=== PATIENT | female | born 1975 | race Caucasian/White ===

== ENCOUNTER 2020-09-05 06:12 | Day surgery (SDC) | payer MEDICARE, MEDICAID, SELFPAY ==
[2020-09-05] VITALS (7 sets, daily range): BP systolic 112–150; BP diastolic 55–73; PULSE 60–104; RESP 13–23; TEMP 36.3–37.2; O2SAT 94–98; BMI 29.7
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
--- NOTE | 2020-09-05 07:13 | MHC.SHP ---
Pre-Procedural Eval Section A The patient is an INPATIENT: No Changes since office visit: Yes Patient answered all questions The History & Physical has been completed within 30 days and I have reviewed it.: Yes Section B Chief Complaint: severe depression Allergies: Allergies Allergy/AdvReac Type Severity Reaction Status Date / Time Sulfa (Sulfonamide Allergy Mild UNKNOWN Unverified 08/09/20 17:12 Antibiotics) Sulfa antibotics Allergy Unknown Uncoded 09/02/19 00:00 Plan Patient has been examined and remains a candidate for the planned procedure
--- NOTE | 2020-09-05 07:26 | HO.ECTPROC ---
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
== END 2020-09-05 08:55 | disposition home or self-care (01) ==
PROVIDERS: PCP Internal Medicine; Visit Provider Psychiatry & Neurology Psychiatry
PROC: (CPT 90870; principal; 2020-09-05 08:00)
DX: F25.0 Schizoaffective disorder, bipolar type (principal); Z88.2 Allergy status to sulfonamides; Z79.899 Other long term (current) drug therapy; Z87.891 Personal history of nicotine dependence
CPT/HCPCS: 90870; J2250

== ENCOUNTER 2020-09-19 05:58 | Day surgery (SDC) | payer MEDICARE, MEDICAID, SELFPAY ==
[2020-09-19 06:26] VITALS: BP 166/83; PULSE 99; RESP 18; TEMP 36.3; O2SAT 98; BMI 27.8
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
--- NOTE | 2020-09-19 07:15 | HO.ECTPROC ---
ECT Procedure Note Diagnosis/Treatment Diagnosis: Schizoaffective Disorder Treatment: Maintenance Interval Clinical Notes: patient complains of involuntary twitching movements mood anxious pre ECT with continues to feel ECT quite helpful with mood and paranoia ECT Settings Device: THYMATRON DGx Electrode Placement: Bifrontal Program/Pulse Width: 0.25 Energy Percent: 75 Seizure Duration By Motor Observation (in seconds): 47 Medications Administration General Anesthetic: Etomidate (16) Muscle Relaxant: Succinylcholine (100) Ancillary Medications Analgesics: Torodol - Pre ECT Anti-emetics: Zofran - Pre ECT Miscillaneous Medications: Midazolam (2 mg ) Airway Management Airway Management: Bag Mask Ventilation Treatment Recommendations No Changes Recommended: No change Pt Tolerated Procedure w/o Issue: Yes
[2020-09-19 07:22] VITALS: BP 136/61; PULSE 68; RESP 16; TEMP 36.6; O2SAT 98
[2020-09-19 07:27] VITALS: BP 117/73; PULSE 78; RESP 16; O2SAT 97
[2020-09-19 07:32] VITALS: BP 122/70; PULSE 77; RESP 16; O2SAT 97
[2020-09-19 07:37] VITALS: BP 122/76; PULSE 81; RESP 16; O2SAT 95
[2020-09-19 07:48] VITALS: BP 128/72; PULSE 82; RESP 16; TEMP 36.6; O2SAT 96
== END 2020-09-19 08:30 | disposition home or self-care (01) ==
PROVIDERS: PCP Internal Medicine; Visit Provider Psychiatry & Neurology Psychiatry
PROC: (CPT 90870; principal; 2020-09-19 15:30)
DX: F25.9 Schizoaffective disorder, unspecified (principal); E78.00 Pure hypercholesterolemia, unspecified; E03.2 Hypothyroidism due to medicaments and other exogenous substances; Z79.899 Other long term (current) drug therapy; Z87.891 Personal history of nicotine dependence; Z88.2 Allergy status to sulfonamides
CPT/HCPCS: 90870; J2250

== ENCOUNTER 2020-11-05 11:01 | Outpatient (REF) | payer MEDICARE, MEDICAID, SELFPAY ==
--- NOTE | 2020-11-05 | MM_ITS ---
EXAMINATION: MM SCREENING DIGITAL BREAST TOMOSYNTHESIS, BILATERAL CLINICAL INFORMATION: Screening. Asymptomatic. The lifetime risk of breast cancer based on the Tyrer-Cuzick Model is 9%. COMPARISON: Mammography: 11/02/2019, 10/26/2018 (baseline), targeted left breast ultrasound 11/01/2018. TECHNIQUE: Digital breast tomosynthesis is performed in both the craniocaudal and mediolateral oblique views along with computer-aided detection (CAD). Synthesized 2D images are generated from the tomosynthesis. FINDINGS: There are scattered areas of fibroglandular density (ACR BI-RADS breast composition Category b). There are no significant masses, abnormal calcifications, or other abnormalities. The tiny cyst 6:00 left breast is further decreased in size. The axilla and skin contours are unremarkable. MM/MM tomosynthesis screening BI IMPRESSION: No mammographic evidence of malignancy. ASSESSMENT: BI-RADS 2: Benign RECOMMENDATION: Routine annual mammography screening. This patient's information was entered into a reminder system with a target due date for their next mammogram.
== END 2020-11-05 11:02 | disposition home or self-care (01) ==
LOC: HO.MAMMO 11:01
PROVIDERS: Visit Provider Obstetrics & Gynecology
DX: Z12.31 Encounter for screening mammogram for malignant neoplasm of breast (principal)
CPT/HCPCS: 77063; 77067

== ENCOUNTER 2020-11-07 06:07 | Day surgery (SDC) | payer MEDICARE, MEDICAID, SELFPAY ==
[2020-11-07] VITALS (7 sets, daily range): BP systolic 106–134; BP diastolic 59–80; PULSE 69–91; RESP 11–21; TEMP 36.4–37.1; O2SAT 96–98; BMI 29.7
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
--- NOTE | 2020-11-07 07:12 | HO.ECTPROC ---
ECT Procedure Note Diagnosis/Treatment Diagnosis: Schizoaffective Disorder Treatment: Maintenance Interval Clinical Notes: patient has been increasingly depressed asks for [employer] back to 6 mg ECT Settings Device: THYMATRON DGx Electrode Placement: Bifrontal Program/Pulse Width: 0.25 Energy Percent: 75 Seizure Duration By EEG (in seconds): 59 Medications Administration General Anesthetic: Etomidate (16) Muscle Relaxant: Succinylcholine (100) Ancillary Medications Analgesics: Torodol - Pre ECT Anti-emetics: Zofran - Pre ECT Miscillaneous Medications: Midazolam (2 mg ) Airway Management Airway Management: Bag Mask Ventilation Treatment Recommendations No Changes Recommended: No change Notes: pt has been inc depressed f/u tx 1 week Pt Tolerated Procedure w/o Issue: Yes
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
--- NOTE | 2020-11-07 08:16 | HO.POSTANES ---
Post Anesthesia Evaluation Post Anesthesia Evaluation Vital Signs: Vital Signs Temp Pulse Resp BP Pulse Ox 11/07/20 08:02 98.8 F 82 21 H 134/72 97 11/07/20 07:51 79 19 113/60 98 11/07/20 07:46 79 19 113/65 98 11/07/20 07:41 76 11 L 112/66 97 11/07/20 07:36 82 16 120/73 97 11/07/20 07:33 98.1 F 85 20 106/59 L 96 11/07/20 06:05 97.6 F 91 18 124/80 97 Anesthesia: General Mental Status: Awake Pain Control: Satisfactory Nausea/Vomiting: None Hydration: Adequate Anesthesia-Related Issues: No Anes. Related Issues
== END 2020-11-07 08:26 | disposition home or self-care (01) ==
PROVIDERS: PCP Internal Medicine; Visit Provider Psychiatry & Neurology Psychiatry
PROC: (CPT 90870; principal; 2020-10-31 07:30)
DX: F25.0 Schizoaffective disorder, bipolar type (principal); F32.9 Major depressive disorder, single episode, unspecified; Z79.899 Other long term (current) drug therapy; Z88.2 Allergy status to sulfonamides
CPT/HCPCS: 90870; J2250

== ENCOUNTER 2020-11-30 06:08 | Day surgery (SDC) | payer MEDICARE, MEDICAID, SELFPAY ==
[2020-11-30] VITALS (7 sets, daily range): BP systolic 111–151; BP diastolic 58–79; PULSE 76–109; RESP 16–18; TEMP 36.5–37.2; O2SAT 95–97; BMI 12.4
--- NOTE | 2020-11-30 07:08 | MHC.SHP ---
Pre-Procedural Eval Section A The patient is an INPATIENT: No Changes since office visit: Yes Changes in Medication and Yes Patient answered all questions; No Cold of Flu in the past 2 weeks and No New Medical Problems The History & Physical has been completed within 30 days and I have reviewed it.: Yes Section B Chief Complaint: severe depression Allergies: Allergies Allergy/AdvReac Type Severity Reaction Status Date / Time Sulfa (Sulfonamide Allergy Mild UNKNOWN Unverified 08/09/20 17:12 Antibiotics) Sulfa antibotics Allergy Unknown Uncoded 09/02/19 00:00 Plan I have reviewed the history and physical and performed a pertinent physical examination on my patient. No changes have occurred unless specified.
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
--- NOTE | 2020-11-30 07:52 | HO.ECTPROC ---
ECT Procedure Note Diagnosis/Treatment Diagnosis: Bipolar disorder Previous ECT Date: 11/07/20 Current Treatment Number: Other Treatment: Maintenance Interval Clinical Notes: pt has been mod depressed no si vraylar lowered back to 4.5 secondary to myoclonic jerks ECT Settings Device: THYMATRON DGx Electrode Placement: Bifrontal Program/Pulse Width: 0.25 Energy Percent: 80 Seizure Duration By EEG (in seconds): 63 Medications Administration General Anesthetic: Etomidate (16) Muscle Relaxant: Succinylcholine (100) Ancillary Medications Analgesics: Torodol - Pre ECT Anti-emetics: Zofran - Pre ECT Miscillaneous Medications: Midazolam (2 mg) Airway Management Airway Management: Bag Mask Ventilation Treatment Recommendations No Changes Recommended: No change Notes: f/u tx 3 weeks Pt Tolerated Procedure w/o Issue: Yes
--- NOTE | 2020-11-30 08:27 | HO.POSTANES ---
Post Anesthesia Evaluation Post Anesthesia Evaluation Vital Signs: Vital Signs Temp Pulse Resp BP Pulse Ox 11/30/20 08:10 98.9 F 82 18 112/61 96 11/30/20 07:55 85 17 121/72 96 11/30/20 07:40 98.9 F 85 16 115/70 95 11/30/20 07:35 82 16 129/71 97 11/30/20 07:30 84 16 111/63 96 11/30/20 07:25 98.4 F 76 16 118/58 L 95 11/30/20 06:17 97.7 F 109 H 17 151/79 H 97 Anesthesia: General (mask) Mental Status: Awake Pain Control: Satisfactory Nausea/Vomiting: None Hydration: Adequate Anesthesia-Related Issues: No Anes. Related Issues
[2020-11-30 08:47] LABS: Lithium 0.39 mmol/L (0.60-1.20)
[2020-11-30 08:50] LABS: Alanine Aminotransferase 15 U/L (0-31); Albumin Level 4.3 g/dL (3.5-5.0); Alkaline Phosphatase 82 U/L (39-117); Anion Gap 13 (12-20); Aspartate Amino Transferase 17 U/L (5-31); Bilirubin Total 0.4 mg/dL (0.0-1.0); Blood Urea Nitrogen 17 mg/dL (9-16); Calcium 8.3 mg/dL (8.4-10.2); Carbon Dioxide 23 mmol/L (22-29); Chloride 106 mmol/L (96-108); Creatinine Clr Calc Pharmacy 44.1; Estimated Glomerular Filt Rate > 60; Glucose Fasting 137 mg/dL (60-99); Sodium 138 mmol/L (135-145); Total Protein 6.7 g/dL (6.5-8.0)
[2020-11-30 09:10] LABS: TSH reflex Free T4 2.26 mIU/mL (0.32-4.0)
[2020-11-30 09:31] LABS: Folate > 20.0 ng/mL (> or = 4.0); Vitamin B12 677 pg/mL (200-900)
== END 2020-11-30 23:59 | disposition home or self-care (01) ==
PROVIDERS: PCP Internal Medicine; Visit Provider Psychiatry & Neurology Psychiatry
PROC: (CPT 90870; principal; 2020-11-30 07:30)
DX: F33.2 Major depressive disorder, recurrent severe without psychotic features (principal); F25.0 Schizoaffective disorder, bipolar type; Z88.2 Allergy status to sulfonamides; Z79.899 Other long term (current) drug therapy
CPT/HCPCS: 36415; 80053; 80178; 82607; 82746; 84443; 90870; J0330; J1885; J2250; J2405

== ENCOUNTER 2021-01-16 06:05 | Day surgery (SDC) | payer MEDICARE, MEDICAID, SELFPAY ==
[2021-01-16 06:17] VITALS: BMI 30.2
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
[2021-01-16] MEDS: Lactated Ringers 500 ML 50 ML IV (07:19)
--- NOTE | 2021-01-16 07:22 | HO.ECTPROC ---
ECT Procedure Note Diagnosis/Treatment Date of Service: 01/16/21 Diagnosis: Schizoaffective Disorder Previous ECT Date: 11/30/20 Current Treatment Number: Other Treatment: Maintenance Interval Clinical Notes: pt depressed feels ect helpful but has anxiety skips tx ECT Settings Device: THYMATRON DGx Electrode Placement: Bifrontal Program/Pulse Width: 0.25 Energy Percent: 100 Seizure Duration By EEG (in seconds): 61 Medications Administration General Anesthetic: Etomidate (16) Muscle Relaxant: Succinylcholine (100) Ancillary Medications Analgesics: Torodol - Pre ECT Anti-emetics: Zofran - Pre ECT Miscillaneous Medications: Midazolam (2 mg) Airway Management Airway Management: Bag Mask Ventilation Treatment Recommendations No Changes Recommended: No change Notes: f/u tx 2 weeks try and stabilize mood Pt Tolerated Procedure w/o Issue: Yes
[2021-01-16 07:50] VITALS: BP 156/68; PULSE 78; RESP 17; TEMP 37; O2SAT 100
[2021-01-16 07:55] VITALS: BP 107/64; PULSE 74; RESP 17; O2SAT 100
[2021-01-16 08:00] VITALS: BP 107/64; PULSE 78; RESP 17; O2SAT 100
[2021-01-16 08:05] VITALS: BP 123/55; PULSE 82; RESP 17; O2SAT 97
[2021-01-16 08:21] VITALS: BP 108/63; PULSE 77; RESP 17; TEMP 36.5; O2SAT 96
[2021-01-16 08:36] VITALS: BP 105/54; PULSE 97; RESP 17; O2SAT 97
--- NOTE | 2021-01-16 08:56 | PC.NURSE ---
Labwork drawn prior to discharge as ordered
[2021-01-16 10:01] LABS: Estimated Average Glucose 103 mg/dL; Hemoglobin A1c % 5.2 %
[2021-01-21 15:07] LABS: Vitamin D 25-OH, D2 <4 ng/mL; Vitamin D 25-OH, D3 41 ng/mL; Vitamin D 25-OH, Total 41 ng/mL (30-100)
== END 2021-01-16 08:57 | disposition home or self-care (01) ==
PROVIDERS: PCP Internal Medicine; Visit Provider Psychiatry & Neurology Psychiatry
PROC: (CPT 90870; principal; 2021-01-16 07:30)
DX: F33.3 Major depressive disorder, recurrent, severe with psychotic symptoms (principal); Z79.899 Other long term (current) drug therapy; Z88.2 Allergy status to sulfonamides
CPT/HCPCS: 36415; 82306; 83036; 90870; J0330; J1885; J2250; J2405

== ENCOUNTER 2021-01-23 06:02 | Day surgery (SDC) | payer MEDICARE, MEDICAID, SELFPAY ==
[2021-01-23 06:34] VITALS: BP 138/76; PULSE 88; RESP 16; TEMP 36.8; O2SAT 97
--- NOTE | 2021-01-23 06:58 | P.CONAN_ITS ---
[facility] Past Medical History Medical History Depression Elevated cholesterol Hip fracture requiring operative repair Hypothyroid Liver laceration Liver problem Schizoaffective disorder, bipolar type Surgical History Surgical History H/O rhinoplasty Status post aortic coarctation stent placement Social History Social History Smoking Status: Former smoker Second Hand Smoke Exposure: No Advance Directives: No Advance Directives Information Provided: Yes Meds Allergies Allergy/AdvReac Type Severity Reaction Status Date / Time Sulfa (Sulfonamide Allergy Mild UNKNOWN Verified 01/16/21 07:15 Antibiotics) Sulfa antibotics Allergy Unknown Unknown Uncoded 01/16/21 07:15 Home Medications Medication Instructions Recorded Confirmed Last Taken Type atorvastatin 1 tab PO DAILY 09/04/20 09/04/20 Unknown History donepezil 1 tab PO DAILY 09/04/20 09/04/20 Unknown History fluvoxamine mg PO 09/04/20 Unknown History levothyroxine 1 tab PO DAILY 09/04/20 09/04/20 Unknown History lithium carbonate 1 cap PO BID 09/04/20 09/04/20 Unknown History olanzapine mg PO 09/04/20 01/16/21 History Exam Exam Date and Time: January 23, 2021 0658 Height,Weight and Vital Signs: Height 5 ft 3 in Weight 77 kg Last Vital Signs Temp 98.2 F 01/23/21 06:34 Pulse 88 01/23/21 06:34 Resp 16 01/23/21 06:34 BP 138/76 01/23/21 06:34 Pulse Ox 97 01/23/21 06:34 Airway Mallampati Class: II TM Dist: >3cm Neck ROM: Full Heart: RRR Lungs: CTA BL Assessment and Plan Assessment Anesthesia Assessment: Anesthesia Plan Discussed and Chart Reviewed Final Anesthetic Review NPO: Yes ASA Class: III Final Preanesthetic Review: No Changes in Pt Med Stat and Consent Obtained/Reviewed Patient Risk: Intermediate Procedure Risk: Intermediate Anesthetic Plan Anesthetic Plan: GA Disposition: Standard PACU
--- NOTE | 2021-01-23 07:14 | MHC.SHP ---
Pre-Procedural Eval Section A The patient is an INPATIENT: No Changes since office visit: Yes Patient answered all questions; No Cold of Flu in the past 2 weeks, No New Medical Problems and No Changes in Medication The History & Physical has been completed within 30 days and I have reviewed it.: Yes Section B Chief Complaint: depression Allergies: Allergies Allergy/AdvReac Type Severity Reaction Status Date / Time Sulfa (Sulfonamide Allergy Mild UNKNOWN Verified 01/16/21 07:15 Antibiotics) Sulfa antibotics Allergy Unknown Unknown Uncoded 01/16/21 07:15 Plan I have reviewed the history and physical and performed a pertinent physical examination on my patient. No changes have occurred unless specified.
--- NOTE | 2021-01-23 07:29 | HO.ECTPROC ---
ECT Procedure Note Diagnosis/Treatment Date of Service: 01/23/21 Diagnosis: Schizoaffective Disorder Previous ECT Date: 02/13/21 Treatment: Maintenance Interval Clinical Notes: has delusional guilt paranoia no si ECT Settings Device: THYMATRON DGx Electrode Placement: Bifrontal Program/Pulse Width: 0.25 Energy Percent: 100 Seizure Duration By EEG (in seconds): 58 Medications Administration General Anesthetic: Etomidate (16) Muscle Relaxant: Succinylcholine (100) Ancillary Medications Analgesics: Torodol - Pre ECT Anti-emetics: Zofran - Pre ECT Miscillaneous Medications: Flumazenil Airway Management Airway Management: Bag Mask Ventilation Treatment Recommendations Energy Percent: 70 Notes: f/u tx 2-3 weeks target delusional guilt Pt Tolerated Procedure w/o Issue: Yes
[2021-01-23 07:35] VITALS: BP 145/57; PULSE 57; RESP 14; TEMP 37.3; O2SAT 98
[2021-01-23 07:40] VITALS: BP 120/66; PULSE 65; RESP 16; O2SAT 98
[2021-01-23 07:45] VITALS: BP 118/66; PULSE 74; RESP 16; O2SAT 95
[2021-01-23 07:50] VITALS: BP 112/62; PULSE 70; RESP 16; O2SAT 97
[2021-01-23 08:03] VITALS: BP 111/62; PULSE 80; RESP 16
== END 2021-01-23 08:30 | disposition home or self-care (01) ==
PROVIDERS: PCP Internal Medicine; Visit Provider Psychiatry & Neurology Psychiatry
PROC: (CPT 90870; principal; 2021-01-23 08:00)
DX: F31.5 Bipolar disorder, current episode depressed, severe, with psychotic features (principal); Z79.899 Other long term (current) drug therapy; Z88.2 Allergy status to sulfonamides; Z87.891 Personal history of nicotine dependence
CPT/HCPCS: 90870; J0330; J1885; J2250; J2405

== ENCOUNTER 2021-01-30 06:05 | Day surgery (SDC) | payer MEDICARE, MEDICAID, SELFPAY ==
[2021-01-30 06:32] VITALS: BP 161/71; PULSE 82; RESP 18; TEMP 36.8; O2SAT 100
--- NOTE | 2021-01-30 07:08 | HO.ECTPROC ---
ECT Procedure Note Diagnosis/Treatment Date of Service: 01/30/21 Diagnosis: Schizoaffective Disorder Current Treatment Number: Other Treatment: Maintenance Interval Clinical Notes: pt depressed with PI ECT Settings Device: THYMATRON DGx Electrode Placement: Bifrontal Program/Pulse Width: 0.25 Energy Percent: 70 Seizure Duration By Motor Observation (in seconds): 56 Medications Administration General Anesthetic: Etomidate (16) Muscle Relaxant: Succinylcholine (100) Ancillary Medications Analgesics: Torodol - Pre ECT (15) Anti-emetics: Zofran - Pre ECT (4) Miscillaneous Medications: Propofol (30) and Midazolam (2) Airway Management Airway Management: Bag Mask Ventilation Treatment Recommendations No Changes Recommended: No change Pt Tolerated Procedure w/o Issue: Yes
--- NOTE | 2021-01-30 07:24 | P.CONAN_ITS ---
[facility] Past Medical History Medical History Depression Elevated cholesterol Hip fracture requiring operative repair Hypothyroid Liver laceration Liver problem Schizoaffective disorder, bipolar type Surgical History Surgical History H/O rhinoplasty Status post aortic coarctation stent placement Social History Social History Smoking Status: Never smoker Second Hand Smoke Exposure: No Use of substances other than those prescribed or required for medical reasons: No Have you been hit, kicked, punched, or otherwise hurt by someone within the past year? If so, by whom?: No Advance Directives: No Advance Directives Information Provided: Yes Meds Allergies Allergy/AdvReac Type Severity Reaction Status Date / Time Sulfa (Sulfonamide Allergy Mild UNKNOWN Verified 01/16/21 07:15 Antibiotics) Sulfa antibotics Allergy Unknown Unknown Uncoded 01/16/21 07:15 Home Medications Medication Instructions Recorded Confirmed Last Taken Type atorvastatin 1 tab PO DAILY 09/04/20 09/04/20 Unknown History donepezil 1 tab PO DAILY 09/04/20 09/04/20 Unknown History fluvoxamine mg PO 09/04/20 Unknown History levothyroxine 1 tab PO DAILY 09/04/20 09/04/20 Unknown History lithium carbonate 1 cap PO BID 09/04/20 09/04/20 Unknown History olanzapine mg PO 09/04/20 01/16/21 History Exam Exam Date and Time: January 30, 2021 0724 Height,Weight and Vital Signs: Last Vital Signs Temp 98.2 F 01/30/21 06:32 Pulse 82 01/30/21 06:32 Resp 18 01/30/21 06:32 BP 161/71 H 01/30/21 06:32 Pulse Ox 100 01/30/21 06:32 Airway Mallampati Class: II TM Dist: >3cm Neck ROM: Full Heart: RRR Lungs: CTA
--- NOTE | 2021-01-30 07:25 | PM.ANESPN ---
Subjective Subjective Date of Service: 01/30/21 Physical Exam Vital Signs: Vital Signs: Last Vital Signs Temp 98.2 F 01/30/21 06:32 Pulse 82 01/30/21 06:32 Resp 18 01/30/21 06:32 BP 161/71 H 01/30/21 06:32 Pulse Ox 100 01/30/21 06:32 Progress Note: A&P Time Spent With Patient Time: Total time spent is greater than 50% in coordination of care (as documented) at patient's floor/unit and/or counseling patient: Time with patient: Greater than 35 minutes
[2021-01-30 07:30] VITALS: BP 124/69; PULSE 78; RESP 16; TEMP 36.8; O2SAT 99
[2021-01-30 07:35] VITALS: BP 124/69; PULSE 75; RESP 16; O2SAT 98
[2021-01-30 07:40] VITALS: BP 122/61; PULSE 76; RESP 16; O2SAT 98
--- NOTE | 2021-01-30 07:44 | HO.POSTANES ---
Post Anesthesia Evaluation Post Anesthesia Evaluation Vital Signs: Vital Signs Temp Pulse Resp BP Pulse Ox 01/30/21 07:43 75 16 124/69 98 01/30/21 07:30 98.2 F 78 16 124/69 99 01/30/21 06:32 98.2 F 82 18 161/71 H 100 Anesthesia: General Mental Status: Awake Pain Control: Satisfactory Nausea/Vomiting: None Hydration: Adequate Anesthesia-Related Issues: No Anes. Related Issues
[2021-01-30 07:45] VITALS: BP 131/63; PULSE 76; RESP 16; O2SAT 98
[2021-01-30 08:08] VITALS: BP 124/55; PULSE 76; RESP 16; TEMP 36.9; O2SAT 99
== END 2021-01-30 08:19 | disposition home or self-care (01) ==
PROVIDERS: PCP Internal Medicine; Visit Provider Psychiatry & Neurology Psychiatry
PROC: (CPT 90870; principal; 2021-01-30 07:00)
DX: F25.1 Schizoaffective disorder, depressive type (principal); Z88.2 Allergy status to sulfonamides
CPT/HCPCS: 90870; J0330; J1885; J2250; J2405

== ENCOUNTER 2021-02-11 13:43 | Outpatient (REF) | payer MEDICARE, MEDICAID, SELFPAY ==
[2021-02-11 14:53] LABS: Hematocrit 39.1 % (37-47); Hemoglobin 12.7 g/dl (12.0-16.0); Mean Corpuscular HGB Conc 32.5 g/dl (31.0-35.0); Mean Corpuscular Hemoglobin 30.8 pg (27.0-33.0); Mean Corpuscular Volume 94.9 fL (80-98); Mean Platelet Volume 10.2 fL (9.4-12.3); Platelet Count 265 X10*3/uL (160-400); Red Blood Count 4.12 X10*6/uL (4.20-5.50); Red Cell Distribution Width 13.1 % (11.0-16.0); White Blood Count 8.9 X10*3/uL (4.8-10.8)
[2021-02-11 15:22] LABS: Alanine Aminotransferase 18 U/L (0-31); Albumin Level 4.6 g/dL (3.5-5.0); Alkaline Phosphatase 90 U/L (39-117); Aspartate Amino Transferase 23 U/L (5-31); Bilirubin Direct 0.2 mg/dL (0.0-0.5); Bilirubin Total 0.5 mg/dL (0.0-1.0); Cholesterol 174 mg/dL; HDL Cholesterol 67 mg/dL; LDL Cholesterol Calculated 91 mg/dl; Total Protein 7.4 g/dL (6.5-8.0); Triglycerides 84 mg/dL
[2021-02-11 15:43] LABS: Thyroid Stimulating Hormone 1.39 uIU/mL (0.32-4.0)
[2021-02-15 07:22] LABS: Vitamin D 25-OH, D2 <4 ng/mL; Vitamin D 25-OH, D3 48 ng/mL; Vitamin D 25-OH, Total 48 ng/mL (30-100)
== END 2021-02-11 13:44 | disposition home or self-care (01) ==
LOC: HO.LAB 13:43
PROVIDERS: PCP Internal Medicine; Visit Provider Internal Medicine
DX: E03.9 Hypothyroidism, unspecified (principal); F25.0 Schizoaffective disorder, bipolar type
CPT/HCPCS: 36415; 80061; 80076; 82306; 84443; 85027

== ENCOUNTER 2021-03-06 06:11 | Day surgery (SDC) | payer MEDICARE, MEDICAID, SELFPAY ==
[2021-03-06 06:25] VITALS: BMI 31.6
[2021-03-06 06:26] VITALS: BP 164/80; PULSE 92; RESP 20; TEMP 36.6; O2SAT 99
--- NOTE | 2021-03-06 07:06 | MHC.SHP ---
Pre-Procedural Eval Section A The patient is an INPATIENT: No Changes since office visit: Yes Patient answered all questions; No Cold of Flu in the past 2 weeks, No New Medical Problems and No Changes in Medication The History & Physical has been completed within 30 days and I have reviewed it.: Yes Section B Chief Complaint: depression Allergies: Allergies Allergy/AdvReac Type Severity Reaction Status Date / Time Sulfa (Sulfonamide Allergy Mild UNKNOWN Verified 03/06/21 06:44 Antibiotics) Sulfa antibotics Allergy Unknown Unknown Uncoded 02/11/21 13:32 Plan I have reviewed the history and physical and performed a pertinent physical examination on my patient. No changes have occurred unless specified.
--- NOTE | 2021-03-06 07:07 | HO.ECTPROC ---
ECT Procedure Note Diagnosis/Treatment Date of Service: 03/06/21 Diagnosis: Schizoaffective Disorder Previous ECT Date: 01/30/21 Treatment: Maintenance Interval Clinical Notes: pt depressed with pi ECT Settings Device: THYMATRON DGx Electrode Placement: Bifrontal Program/Pulse Width: 0.25 Energy Percent: 100 Seizure Duration By EEG (in seconds): 73 Medications Administration General Anesthetic: Etomidate (16) Muscle Relaxant: Succinylcholine (100) Ancillary Medications Analgesics: Torodol - Pre ECT Anti-emetics: Zofran - Pre ECT Miscillaneous Medications: Propofol and Midazolam Airway Management Airway Management: Bag Mask Ventilation Treatment Recommendations Notes: consider change to 0.5 pulse width f/u tx 2-3 weeks Pt Tolerated Procedure w/o Issue: Yes
--- NOTE | 2021-03-06 07:14 | P.CONAN_ITS ---
[facility] Active Problems Active Problems: All Active Problems (Updated 02/11/21 @ 13:42 by Bashir burgos MD) Preoperative clearance (Acute) Hypothyroid (Acute) Schizoaffective disorder, bipolar type (Acute) Past Medical History Medical History Depression Elevated cholesterol Hip fracture requiring operative repair Hypothyroid Liver laceration Liver problem Schizoaffective disorder, bipolar type Family History Family History Mother No problems noted. Father No problems noted. Surgical History Surgical History H/O rhinoplasty Status post aortic coarctation stent placement Social History Social History Alcohol intake: never Smoking Status: Former smoker Second Hand Smoke Exposure: No Advance Directives: No Advance Directives Information Provided: Yes Meds Allergies Allergy/AdvReac Type Severity Reaction Status Date / Time Sulfa (Sulfonamide Allergy Mild UNKNOWN Verified 03/06/21 06:44 Antibiotics) Sulfa antibotics Allergy Unknown Unknown Uncoded 02/11/21 13:32 Home Medications Medication Instructions Recorded Confirmed Last Taken Type atorvastatin 1 tab PO DAILY 09/04/20 02/11/21 Unknown History donepezil 1 tab PO DAILY 09/04/20 02/11/21 Unknown History fluvoxamine mg PO 09/04/20 02/11/21 Unknown History levothyroxine 1 tab PO DAILY 09/04/20 02/11/21 Unknown History lithium carbonate 1 cap PO BID 09/04/20 02/11/21 Unknown History olanzapine mg PO 09/04/20 02/11/21 01/16/21 History benztropine 1 mg tablet 1 mg PO BID 02/11/21 02/11/21 Unknown History gabapentin 100 mg capsule 100 mg PO TID 02/11/21 02/11/21 Unknown History lithium carbonate 450 mg 450 mg PO BID 02/11/21 02/11/21 Unknown History tablet,extended release lorazepam 1 mg tablet 1 mg PO QID PRN 02/11/21 02/11/21 Unknown History omeprazole 40 mg capsule,delayed 40 mg PO DAILY 03/22/21 03/22/21 Unknown History release Exam Exam Date and Time: March 06, 2021 0714 Height,Weight and Vital Signs: Height 5 ft 3 in Weight 81.193 kg Last Vital Signs Temp 97.9 F 03/06/21 06:26 Pulse 92 03/06/21 06:26 Resp 20 03/06/21 06:26 BP 164/80 H 03/06/21 06:26 Pulse Ox 99 03/06/21 06:26 Airway Mallampati Class: II TM Dist: >3cm Neck ROM: Full Assessment and Plan Assessment Anesthesia Assessment: Anesthesia Plan Discussed and Chart Reviewed Final Anesthetic Review NPO: Yes ASA Class: II Final Preanesthetic Review: No Changes in Pt Med Stat, Meds/Allgs Chart Reviewed, Consent Obtained/Reviewed and Anes Risks/Benef Reviewed Patient Risk: Low Procedure Risk: Low Anesthetic Plan Anesthetic Plan: GA Disposition: Standard PACU
[2021-03-06 07:25] VITALS: BP 158/63; PULSE 51; RESP 16; TEMP 36.7; O2SAT 100
[2021-03-06 07:30] VITALS: BP 129/73; PULSE 77; RESP 17; O2SAT 97
[2021-03-06 07:35] VITALS: BP 120/68; PULSE 73; RESP 17; O2SAT 98
[2021-03-06 07:40] VITALS: BP 127/68; PULSE 75; RESP 17; O2SAT 97
[2021-03-06 07:55] VITALS: BP 120/64; PULSE 80; RESP 17; O2SAT 97
== END 2021-03-06 08:40 | disposition home or self-care (01) ==
PROVIDERS: PCP Internal Medicine; Visit Provider Psychiatry & Neurology Psychiatry
PROC: (CPT 90870; principal; 2021-03-06 16:00)
DX: F25.0 Schizoaffective disorder, bipolar type (principal); E03.9 Hypothyroidism, unspecified; Z79.899 Other long term (current) drug therapy; Z88.2 Allergy status to sulfonamides
CPT/HCPCS: 90870; J0330; J1885; J2250; J2405

== ENCOUNTER 2021-03-22 06:07 | Day surgery (SDC) | payer MEDICARE, MEDICAID, SELFPAY ==
[2021-03-22] VITALS (7 sets, daily range): BP systolic 113–149; BP diastolic 50–72; PULSE 55–100; RESP 16–20; TEMP 36.8–36.9; O2SAT 96–99; BMI 33.6
[2021-03-22 06:35] LABS: UPreg QC Valid YES; Urine Pregnancy NEGATIVE (NEGATIVE)
--- NOTE | 2021-03-22 07:03 | P.CONAN_ITS ---
[facility] Active Problems Active Problems: All Active Problems (Updated 02/11/21 @ 13:42 by Bashir burgos MD) Preoperative clearance (Acute) Hypothyroid (Acute) Schizoaffective disorder, bipolar type (Acute) Past Medical History Medical History Depression Elevated cholesterol Hip fracture requiring operative repair Hypothyroid Liver laceration Liver problem Schizoaffective disorder, bipolar type Family History Family History Mother No problems noted. Father No problems noted. Surgical History Surgical History H/O rhinoplasty Status post aortic coarctation stent placement Social History Social History Alcohol intake: never Smoking Status: Never smoker Second Hand Smoke Exposure: No Advance Directives: No Advance Directives Information Provided: Yes Meds Allergies Allergy/AdvReac Type Severity Reaction Status Date / Time Sulfa (Sulfonamide Allergy Mild UNKNOWN Verified 03/06/21 06:44 Antibiotics) Sulfa antibotics Allergy Unknown Unknown Uncoded 02/11/21 13:32 Home Medications Medication Instructions Recorded Confirmed Last Taken Type atorvastatin 1 tab PO DAILY 09/04/20 02/11/21 Unknown History donepezil 1 tab PO DAILY 09/04/20 02/11/21 Unknown History fluvoxamine mg PO 09/04/20 02/11/21 Unknown History levothyroxine 1 tab PO DAILY 09/04/20 02/11/21 Unknown History lithium carbonate 1 cap PO BID 09/04/20 02/11/21 Unknown History olanzapine mg PO 09/04/20 02/11/21 01/16/21 History benztropine 1 mg tablet 1 mg PO BID 02/11/21 02/11/21 Unknown History gabapentin 100 mg capsule 100 mg PO TID 02/11/21 02/11/21 Unknown History lithium carbonate 450 mg 450 mg PO BID 02/11/21 02/11/21 Unknown History tablet,extended release lorazepam 1 mg tablet 1 mg PO QID PRN 02/11/21 02/11/21 Unknown History omeprazole 40 mg capsule,delayed 40 mg PO DAILY 02/11/21 02/11/21 Unknown History release Exam Exam Date and Time: March 22, 2021 0703 Height,Weight and Vital Signs: Height 5 ft 3 in Weight 86.183 kg Last Vital Signs Temp 98.2 F 03/22/21 06:20 Pulse 100 03/22/21 06:20 Resp 20 03/22/21 06:20 BP 149/72 H 03/22/21 06:20 Pulse Ox 98 03/22/21 06:20 Pertinent Lab Results Pertinent Lab Results: Laboratory Tests 03/22/21 06:30 Urine Test NEGATIVE Airway Mallampati Class: II TM Dist: >3cm Neck ROM: Full Assessment and Plan Assessment Anesthesia Assessment: Anesthesia Plan Discussed and Chart Reviewed Final Anesthetic Review NPO: Yes ASA Class: II Final Preanesthetic Review: No Changes in Pt Med Stat, Meds/Allgs Chart Reviewed, Consent Obtained/Reviewed and Anes Risks/Benef Reviewed Patient Risk: Low Procedure Risk: Low Assessment/Block/Sedation in SS: Assess/Block/Sedation-SS Anesthetic Plan Anesthetic Plan: GA Disposition: Standard PACU
--- NOTE | 2021-03-22 07:06 | MHC.SHP ---
Pre-Procedural Eval Section A The patient is an INPATIENT: No Changes since office visit: Yes Cold of Flu in the past 2 weeks, Yes Changes in Medication and Yes Patient answered all questions; No New Medical Problems The History & Physical has been completed within 30 days and I have reviewed it.: Yes Section B Chief Complaint: Severe Depression Allergies: Allergies Allergy/AdvReac Type Severity Reaction Status Date / Time Sulfa (Sulfonamide Allergy Mild UNKNOWN Verified 03/06/21 06:44 Antibiotics) Sulfa antibotics Allergy Unknown Unknown Uncoded 02/11/21 13:32 Review of Systems Sugical H&P ROS: Negative: Cardiovascular, Respiratory and Neurological Exam Surgical H&P Exam: Normal: Heart and Normal: Lungs Plan Diagnosis/Plan: Unchanged I have reviewed the history and physical and performed a pertinent physical examination on my patient. No changes have occurred unless specified.
--- NOTE | 2021-03-22 07:24 | HO.ECTPROC ---
ECT Procedure Note Diagnosis/Treatment Date of Service: 03/22/21 Treatment: Maintenance Interval Clinical Notes: pt less depressed remains paranoid ECT Settings Device: THYMATRON DGx Electrode Placement: Bifrontal Program/Pulse Width: 0.25 Energy Percent: 100 Seizure Duration By EEG (in seconds): 61 Medications Administration General Anesthetic: Etomidate (16) Muscle Relaxant: Succinylcholine (100) Ancillary Medications Analgesics: Torodol - Pre ECT Anti-emetics: Zofran - Pre ECT Airway Management Airway Management: Bag Mask Ventilation Treatment Recommendations No Changes Recommended: No change Notes: cont tx for mood and paranoia
== END 2021-03-22 08:30 | disposition home or self-care (01) ==
PROVIDERS: Nurse Practitioner; PCP Internal Medicine; Visit Provider Psychiatry & Neurology Psychiatry
PROC: (CPT 90870; principal; 2021-03-22 08:30)
DX: F25.0 Schizoaffective disorder, bipolar type (principal); Z79.899 Other long term (current) drug therapy; Z88.2 Allergy status to sulfonamides
CPT/HCPCS: 81025; 90870; J0330; J1885; J2250; J2405

== ENCOUNTER → 2021-03-26 12:20 | Outpatient (REF) | payer MEDICARE, MEDICAID, SELFPAY ==
--- NOTE | 2021-03-26 12:33 | ECG_ITS ---
Test Reason : post ect Blood Pressure : / mmHG Vent. Rate : 082 BPM Atrial Rate : 082 BPM P-R Int : 174 ms QRS Dur : 096 ms QT Int : 384 ms P-R-T Axes : 060 002 043 degrees QTc Int : 448 ms Normal sinus rhythm Normal ECG When compared with ECG of 11-SEP-2021 10:17, No significant change was found Referred By: Jose Carlos Alvarez Electronically Signed By:ARIANE LOONEY MD
[2021-03-26 13:22] LABS: MANUAL DIFF FLAG NO
[2021-03-26 13:34] LABS: Basophils Percent Auto 0.4 % (0-2); Eosinophils Absolute Auto 0.1 X10*3/uL (0.0-0.4); Eosinophils Percent Auto 0.6 % (0-4); Hematocrit 39.8 % (37-47); Hemoglobin 12.8 g/dl (12.0-16.0); Imm Gran Abs Auto 0.03 X10*3/uL (0.00-0.03); Imm Gran Pct Auto 0.3 % (0.0-0.4); Lymphocytes Absolute Auto 1.4 X10*3/uL (1.2-4.9); Lymphocytes Percent Auto 14.3 % (20-40); Mean Corpuscular HGB Conc 32.2 g/dl (31.0-35.0); Mean Corpuscular Hemoglobin 30.7 pg (27.0-33.0); Mean Corpuscular Volume 95.4 fL (80-98); Mean Platelet Volume 10.1 fL (9.4-12.3); Monocytes Absolute Auto 0.6 X10*3/uL (0.1-1.2); Monocytes Percent Auto 6.1 % (2-11); Neutrophils Absolute Auto 7.5 X10*3/uL (2.0-8.3); Neutrophils Percent Auto 78.3 % (45-73); Platelet Count 265 X10*3/uL (160-400); Red Blood Count 4.17 X10*6/uL (4.20-5.50); Red Cell Distribution Width 13.1 % (11.0-16.0); White Blood Count 9.6 X10*3/uL (4.8-10.8)
[2021-03-26 13:35] LABS: Lithium 0.69 mmol/L (0.60-1.20)
[2021-03-26 14:09] LABS: Thyroid Stimulating Hormone 0.33 uIU/mL (0.32-4.0)
== END ==
LOC: HO.CARD 12:20
PROVIDERS: PCP Internal Medicine; Visit Provider Psychiatry & Neurology Psychiatry
DX: Z51.81 Encounter for therapeutic drug level monitoring (principal); Z79.899 Other long term (current) drug therapy
CPT/HCPCS: 36415; 80178; 84443; 85025; 93005

== ENCOUNTER 2021-04-10 06:03 | Day surgery (SDC) | payer MEDICARE, MEDICAID, SELFPAY ==
--- NOTE | 2021-04-10 06:58 | HO.ANESPROP2 ---
[facility] Active Problems Active Problems: All Active Problems (Updated 02/11/21 @ 13:42 by Bashir Tadeo MD) Preoperative clearance (Acute) Hypothyroid (Acute) Schizoaffective disorder, bipolar type (Acute) Past Medical History Medical History Depression Elevated cholesterol Hip fracture requiring operative repair Hypothyroid Liver laceration Liver problem Schizoaffective disorder, bipolar type Family History Family History Mother No problems noted. Father No problems noted. Surgical History Surgical History H/O rhinoplasty Status post aortic coarctation stent placement Social History Social History Alcohol intake: never Smoking Status: Never smoker Second Hand Smoke Exposure: No Are you DNR?: No Advance Directives: No Advance Directives Information Provided: Yes Meds Allergies Allergy/AdvReac Type Severity Reaction Status Date / Time Sulfa (Sulfonamide Allergy Mild UNKNOWN Verified 03/06/21 06:44 Antibiotics) Sulfa antibotics Allergy Unknown Unknown Uncoded 02/11/21 13:32 Home Medications Medication Instructions Recorded Confirmed Last Taken Type atorvastatin 1 tab PO DAILY 09/04/20 02/11/21 Unknown History donepezil 1 tab PO DAILY 09/04/20 02/11/21 Unknown History fluvoxamine mg PO 09/04/20 02/11/21 Unknown History levothyroxine 1 tab PO DAILY 09/04/20 02/11/21 Unknown History lithium carbonate 1 cap PO BID 09/04/20 02/11/21 Unknown History olanzapine mg PO 09/04/20 02/11/21 01/16/21 History benztropine 1 mg tablet 1 mg PO BID 02/11/21 02/11/21 Unknown History gabapentin 100 mg capsule 100 mg PO TID 02/11/21 02/11/21 Unknown History lithium carbonate 450 mg 450 mg PO BID 02/11/21 02/11/21 Unknown History tablet,extended release lorazepam 1 mg tablet 1 mg PO QID PRN 02/11/21 02/11/21 Unknown History omeprazole 40 mg capsule,delayed 40 mg PO DAILY 02/11/21 02/11/21 Unknown History release Exam Exam Date and Time: April 10, 2021 0658 Airway Mallampati Class: II TM Dist: >3cm Neck ROM: Full Loose/Missing/Broken Teeth: No Heart: RRR Lungs: CTA Assessment and Plan Assessment Anesthesia Assessment: Anesthesia Plan Discussed and Chart Reviewed Final Anesthetic Review NPO: Yes ASA Class: II Final Preanesthetic Review: No Changes in Pt Med Stat, Meds/Allgs Chart Reviewed, Consent Obtained/Reviewed and Anes Risks/Benef Reviewed Patient Risk: Low Procedure Risk: Low Anesthetic Plan Anesthetic Plan: GA Disposition: Standard PACU
[2021-04-10 07:00] VITALS: BP 144/71; PULSE 86; RESP 17; TEMP 36.3; O2SAT 99; BMI 31.6
--- NOTE | 2021-04-10 07:14 | MHC.SHP ---
Pre-Procedural Eval Section A The patient is an INPATIENT: No Changes since office visit: Yes Patient answered all questions; No Cold of Flu in the past 2 weeks, No New Medical Problems and No Changes in Medication Section B Chief Complaint: Severe Depression Details of Present Illness: recurrent depression Relevant Social History: None Present Medications: see Short Stay Collaborative assessment Medical History: Significant History History of Previous Operations: No relevant previous surgery (aortic trauma ) Allergies: Allergies Allergy/AdvReac Type Severity Reaction Status Date / Time Sulfa (Sulfonamide Allergy Mild UNKNOWN Verified 03/06/21 06:44 Antibiotics) Sulfa antibotics Allergy Unknown Unknown Uncoded 02/11/21 13:32 Review of Systems Sugical H&P ROS: Negative: Cardiovascular and Respiratory and Yes, Specify: Musculoskeletal (pain leg hip) Exam Surgical H&P Exam: Normal: Heart, Normal: Lungs and Normal: Neurological Plan Diagnosis/Plan: Unchanged I have reviewed the history and physical and performed a pertinent physical examination on my patient. No changes have occurred unless specified.
[2021-04-10 07:16] LABS: UPreg QC Valid YES; Urine Pregnancy NEGATIVE (NEGATIVE)
--- NOTE | 2021-04-10 07:20 | HO.ECTPROC ---
ECT Procedure Note Diagnosis/Treatment Date of Service: 04/10/21 Diagnosis: Bipolar disorder Treatment: Maintenance Interval Clinical Notes: PT feels depressed peripods of PI ECT Settings Device: THYMATRON DGx Seizure Duration By EEG (in seconds): 56 Medications Administration General Anesthetic: Etomidate (16) Muscle Relaxant: Succinylcholine (100) Ancillary Medications Analgesics: Torodol - Pre ECT Anti-emetics: Zofran - Pre ECT Miscillaneous Medications: Propofol and Midazolam Airway Management Airway Management: Bag Mask Ventilation Treatment Recommendations No Changes Recommended: No change
[2021-04-10 07:41] VITALS: BP 104/61; PULSE 63; RESP 16; TEMP 37; O2SAT 100
[2021-04-10 07:46] VITALS: BP 120/68; PULSE 66; RESP 16; O2SAT 100
[2021-04-10 07:51] VITALS: BP 118/65; PULSE 65; RESP 16; O2SAT 100
[2021-04-10 07:56] VITALS: BP 111/66; PULSE 70; RESP 16; O2SAT 100
[2021-04-10 08:11] VITALS: BP 116/62; PULSE 71; RESP 17; TEMP 37; O2SAT 98
== END 2021-04-10 08:30 | disposition home or self-care (01) ==
PROVIDERS: PCP Internal Medicine; Visit Provider Psychiatry & Neurology Psychiatry
PROC: (CPT 90870; principal; 2021-04-10 07:30)
DX: F31.9 Bipolar disorder, unspecified (principal); F25.0 Schizoaffective disorder, bipolar type; Z79.899 Other long term (current) drug therapy; Z88.2 Allergy status to sulfonamides
CPT/HCPCS: 81025; 90870; J0330; J1885; J2250; J2405

== ENCOUNTER 2021-04-11 10:29 | Outpatient (REF) | payer MEDICARE, MEDICAID, SELFPAY ==
[2021-04-11 11:29] LABS: MANUAL DIFF FLAG NO
[2021-04-11 11:42] LABS: Basophils Percent Auto 0.4 % (0-2); Eosinophils Absolute Auto 0.2 X10*3/uL (0.0-0.4); Eosinophils Percent Auto 2.3 % (0-4); Hematocrit 39.5 % (37-47); Hemoglobin 12.8 g/dl (12.0-16.0); Imm Gran Abs Auto 0.03 X10*3/uL (0.00-0.03); Imm Gran Pct Auto 0.4 % (0.0-0.4); Lymphocytes Absolute Auto 1.3 X10*3/uL (1.2-4.9); Lymphocytes Percent Auto 17.4 % (20-40); Mean Corpuscular HGB Conc 32.4 g/dl (31.0-35.0); Mean Corpuscular Hemoglobin 31.5 pg (27.0-33.0); Mean Corpuscular Volume 97.3 fL (80-98); Mean Platelet Volume 10.2 fL (9.4-12.3); Monocytes Absolute Auto 0.6 X10*3/uL (0.1-1.2); Monocytes Percent Auto 8.2 % (2-11); Neutrophils Absolute Auto 5.4 X10*3/uL (2.0-8.3); Neutrophils Percent Auto 71.3 % (45-73); Platelet Count 245 X10*3/uL (160-400); Red Blood Count 4.06 X10*6/uL (4.20-5.50); Red Cell Distribution Width 12.9 % (11.0-16.0); White Blood Count 7.5 X10*3/uL (4.8-10.8)
== END 2021-04-11 10:30 | disposition home or self-care (01) ==
LOC: HO.LABR 10:29
PROVIDERS: PCP Internal Medicine; Visit Provider Psychiatry & Neurology Psychiatry
DX: Z79.899 Other long term (current) drug therapy (principal); Z51.81 Encounter for therapeutic drug level monitoring
CPT/HCPCS: 36415; 85025

== ENCOUNTER 2021-05-07 16:19 | Outpatient (REF) | payer MEDICARE, MEDICAID, SELFPAY ==
[2021-05-07 17:07] LABS: MANUAL DIFF FLAG NO
[2021-05-07 17:09] LABS: Basophils Absolute Auto 0.1 X10*3/uL (0.0-0.2); Basophils Percent Auto 0.7 % (0-2); Eosinophils Absolute Auto 0.2 X10*3/uL (0.0-0.4); Eosinophils Percent Auto 1.9 % (0-4); Hematocrit 37.9 % (37-47); Hemoglobin 12.4 g/dl (12.0-16.0); Imm Gran Abs Auto 0.02 X10*3/uL (0.00-0.03); Imm Gran Pct Auto 0.2 % (0.0-0.4); Lymphocytes Absolute Auto 1.7 X10*3/uL (1.2-4.9); Lymphocytes Percent Auto 18.5 % (20-40); Mean Corpuscular HGB Conc 32.7 g/dl (31.0-35.0); Mean Corpuscular Hemoglobin 30.6 pg (27.0-33.0); Mean Corpuscular Volume 93.6 fL (80-98); Mean Platelet Volume 10.1 fL (9.4-12.3); Monocytes Absolute Auto 0.6 X10*3/uL (0.1-1.2); Monocytes Percent Auto 6.4 % (2-11); Neutrophils Absolute Auto 6.5 X10*3/uL (2.0-8.3); Neutrophils Percent Auto 72.3 % (45-73); Platelet Count 246 X10*3/uL (160-400); Red Blood Count 4.05 X10*6/uL (4.20-5.50); Red Cell Distribution Width 12.6 % (11.0-16.0); White Blood Count 8.9 X10*3/uL (4.8-10.8)
== END 2021-05-07 16:20 | disposition home or self-care (01) ==
LOC: HO.LABR 16:19
PROVIDERS: PCP Internal Medicine; Visit Provider Psychiatry & Neurology Psychiatry
DX: Z79.899 Other long term (current) drug therapy (principal)
CPT/HCPCS: 36415; 85025

== ENCOUNTER 2021-05-08 06:07 | Day surgery (SDC) | payer MEDICARE, MEDICAID, SELFPAY ==
[2021-05-08 06:30] VITALS: BP 138/70; PULSE 86; RESP 18; TEMP 36.4; O2SAT 97; BMI 31.6
--- NOTE | 2021-05-08 06:52 | P.CONAN_ITS ---
[facility] Active Problems Active Problems: All Active Problems (Updated 02/11/21 @ 13:42 by Bashir burgos MD) Preoperative clearance (Acute) Hypothyroid (Acute) Schizoaffective disorder, bipolar type (Acute) Past Medical History Medical History Depression Elevated cholesterol Hip fracture requiring operative repair Hypothyroid Liver laceration Liver problem Schizoaffective disorder, bipolar type Family History Family History Mother No problems noted. Father No problems noted. Surgical History Surgical History H/O rhinoplasty Status post aortic coarctation stent placement Social History Social History Are you a primary career specialist to a significant other at home: No Do you presently have visiting nurse or other home services: No Alcohol intake: never Second Hand Smoke Exposure: No Are you DNR?: No Advance Directives: No Advance Directives Information Provided: Yes Nutrition Risks: No Nutritional Risk Meds Allergies Allergy/AdvReac Type Severity Reaction Status Date / Time Sulfa (Sulfonamide Allergy Mild UNKNOWN Verified 03/06/21 06:44 Antibiotics) Sulfa antibotics Allergy Unknown Unknown Uncoded 02/11/21 13:32 Home Medications Medication Instructions Recorded Confirmed Last Taken Type atorvastatin 1 tab PO DAILY 09/04/20 02/11/21 Unknown History donepezil 1 tab PO DAILY 09/04/20 02/11/21 Unknown History fluvoxamine mg PO 09/04/20 02/11/21 Unknown History levothyroxine 1 tab PO DAILY 09/04/20 02/11/21 Unknown History lithium carbonate 1 cap PO BID 09/04/20 02/11/21 Unknown History olanzapine mg PO 09/04/20 02/11/21 01/16/21 History benztropine 1 mg tablet 1 mg PO BID 02/11/21 02/11/21 Unknown History gabapentin 100 mg capsule 100 mg PO TID 02/11/21 02/11/21 Unknown History lithium carbonate 450 mg 450 mg PO BID 02/11/21 02/11/21 Unknown History tablet,extended release lorazepam 1 mg tablet 1 mg PO QID PRN 02/11/21 02/11/21 Unknown History omeprazole 40 mg capsule,delayed 40 mg PO DAILY 02/11/21 02/11/21 Unknown History release Exam Exam Date and Time: May 08, 2021 0652 Height,Weight and Vital Signs: Height 5 ft 3 in Weight 81.193 kg Last Vital Signs Temp 97.5 F 05/08/21 06:30 Pulse 86 05/08/21 06:30 Resp 18 05/08/21 06:30 BP 138/70 05/08/21 06:30 Pulse Ox 97 05/08/21 06:30 Airway Mallampati Class: II TM Dist: >3cm Neck ROM: Full Heart: RRr Lungs: cta Assessment and Plan Assessment Anesthesia Assessment: Anesthesia Plan Discussed and Chart Reviewed Final Anesthetic Review NPO: Yes ASA Class: III Final Preanesthetic Review: No Changes in Pt Med Stat and Consent Obtained/Reviewed Patient Risk: Intermediate Procedure Risk: Intermediate Anesthetic Plan Anesthetic Plan: MAC: Disposition: Standard PACU
[2021-05-08 07:05] LABS: UPreg QC Valid YES; Urine Pregnancy NEGATIVE (NEGATIVE)
--- NOTE | 2021-05-08 07:08 | MHC.SHP ---
Pre-Procedural Eval Section A The patient is an INPATIENT: No Changes since office visit: Yes Changes in Medication and Yes Patient answered all questions; No Cold of Flu in the past 2 weeks and No New Medical Problems The History & Physical has been completed within 30 days and I have reviewed it.: Yes Section B Chief Complaint: depression Allergies: Allergies Allergy/AdvReac Type Severity Reaction Status Date / Time Sulfa (Sulfonamide Allergy Mild UNKNOWN Verified 03/06/21 06:44 Antibiotics) Sulfa antibotics Allergy Unknown Unknown Uncoded 02/11/21 13:32 Plan I have reviewed the history and physical and performed a pertinent physical examination on my patient. No changes have occurred unless specified.
--- NOTE | 2021-05-08 07:09 | HO.ECTPROC ---
ECT Procedure Note Diagnosis/Treatment Date of Service: 05/08/21 Diagnosis: Schizoaffective Disorder Previous ECT Date: 04/10/21 Treatment: Maintenance Interval Clinical Notes: has had inc paranoia ECT Settings Device: THYMATRON DGx Electrode Placement: Bifrontal Program/Pulse Width: 0.50 Energy Percent: 70 Seizure Duration By EEG (in seconds): 70 Medications Administration General Anesthetic: Etomidate (16) Muscle Relaxant: Succinylcholine (100) Ancillary Medications Analgesics: Torodol - Pre ECT Anti-emetics: Zofran - Pre ECT Miscillaneous Medications: Propofol and Midazolam Airway Management Airway Management: Bag Mask Ventilation Treatment Recommendations No Changes Recommended: No change Notes: f/u tx 2 weeks clozapine started Pt Tolerated Procedure w/o Issue: Yes
[2021-05-08 07:26] VITALS: BP 107/61; PULSE 65; RESP 22; TEMP 36.6; O2SAT 100
[2021-05-08 07:31] VITALS: BP 120/70; PULSE 73; RESP 13; O2SAT 98
[2021-05-08 07:36] VITALS: BP 120/72; PULSE 74; RESP 16; O2SAT 99
[2021-05-08 07:41] VITALS: BP 112/63; PULSE 72; RESP 17; O2SAT 98
[2021-05-08 07:56] VITALS: BP 103/65; PULSE 70; RESP 17; TEMP 36.1; O2SAT 97
== END 2021-05-08 08:22 | disposition home or self-care (01) ==
PROVIDERS: PCP Internal Medicine; Visit Provider Psychiatry & Neurology Psychiatry
PROC: (CPT 90870; principal; 2021-05-08 08:00)
DX: F32.9 Major depressive disorder, single episode, unspecified (principal); F25.0 Schizoaffective disorder, bipolar type; Z88.2 Allergy status to sulfonamides
CPT/HCPCS: 81025; 90870; J0330; J1885; J2250; J2405

== ENCOUNTER 2021-05-21 09:23 | Outpatient (REF) | payer MEDICARE, MEDICAID, SELFPAY ==
[2021-05-21 09:58] LABS: MANUAL DIFF FLAG NO
[2021-05-21 10:07] LABS: Basophils Percent Auto 0.6 % (0-2); Eosinophils Absolute Auto 0.1 X10*3/uL (0.0-0.4); Eosinophils Percent Auto 0.7 % (0-4); Hematocrit 40.9 % (37-47); Hemoglobin 13.1 g/dl (12.0-16.0); Imm Gran Abs Auto 0.01 X10*3/uL (0.00-0.03); Imm Gran Pct Auto 0.1 % (0.0-0.4); Lymphocytes Absolute Auto 0.9 X10*3/uL (1.2-4.9); Lymphocytes Percent Auto 12.2 % (20-40); Mean Corpuscular Hemoglobin 30.4 pg (27.0-33.0); Mean Corpuscular Volume 94.9 fL (80-98); Mean Platelet Volume 10.2 fL (9.4-12.3); Monocytes Absolute Auto 0.5 X10*3/uL (0.1-1.2); Monocytes Percent Auto 6.5 % (2-11); Neutrophils Absolute Auto 5.7 X10*3/uL (2.0-8.3); Neutrophils Percent Auto 79.9 % (45-73); Platelet Count 233 X10*3/uL (160-400); Red Blood Count 4.31 X10*6/uL (4.20-5.50); Red Cell Distribution Width 12.7 % (11.0-16.0); White Blood Count 7.1 X10*3/uL (4.8-10.8)
== END 2021-05-21 09:24 | disposition home or self-care (01) ==
LOC: HO.LABR 09:23
PROVIDERS: PCP Internal Medicine; Visit Provider Psychiatry & Neurology Psychiatry
DX: Z51.81 Encounter for therapeutic drug level monitoring (principal); Z79.899 Other long term (current) drug therapy
CPT/HCPCS: 36415; 85025

== ENCOUNTER 2021-05-22 06:05 | Day surgery (SDC) | payer MEDICARE, MEDICAID, SELFPAY ==
[2021-05-22 06:47] VITALS: BP 138/69; PULSE 91; RESP 17; TEMP 36.1; O2SAT 99; BMI 31.6
--- NOTE | 2021-05-22 07:06 | HO.ANESPROP2 ---
[facility] Active Problems Active Problems: All Active Problems (Updated 02/11/21 @ 13:42 by Bashir Tadeo MD) Preoperative clearance (Acute) Hypothyroid (Acute) Schizoaffective disorder, bipolar type (Acute) Past Medical History Medical History Depression Elevated cholesterol Hip fracture requiring operative repair Hypothyroid Liver laceration Liver problem Schizoaffective disorder, bipolar type Family History Family History Mother No problems noted. Father No problems noted. Surgical History Surgical History H/O rhinoplasty Status post aortic coarctation stent placement Social History Social History Are you a primary physician locums urgent care to a significant other at home: No Do you presently have visiting nurse or other home services: No Alcohol intake: never Second Hand Smoke Exposure: No Are you DNR?: No Advance Directives: No Advance Directives Information Provided: Yes Recently lost weight without trying: No Meds Allergies Allergy/AdvReac Type Severity Reaction Status Date / Time Sulfa (Sulfonamide Allergy Mild UNKNOWN Verified 03/06/21 06:44 Antibiotics) Sulfa antibotics Allergy Unknown Unknown Uncoded 02/11/21 13:32 Home Medications Medication Instructions Recorded Confirmed Last Taken Type atorvastatin 1 tab PO DAILY 09/04/20 02/11/21 Unknown History donepezil 1 tab PO DAILY 09/04/20 02/11/21 Unknown History fluvoxamine mg PO 09/04/20 02/11/21 Unknown History levothyroxine 1 tab PO DAILY 09/04/20 02/11/21 Unknown History lithium carbonate 1 cap PO BID 09/04/20 02/11/21 Unknown History olanzapine mg PO 09/04/20 02/11/21 01/16/21 History benztropine 1 mg tablet 1 mg PO BID 02/11/21 02/11/21 Unknown History gabapentin 100 mg capsule 100 mg PO TID 02/11/21 02/11/21 Unknown History lithium carbonate 450 mg 450 mg PO BID 02/11/21 02/11/21 Unknown History tablet,extended release lorazepam 1 mg tablet 1 mg PO QID PRN 02/11/21 02/11/21 Unknown History omeprazole 40 mg capsule,delayed 40 mg PO DAILY 02/11/21 02/11/21 Unknown History release Exam Exam Date and Time: May 22, 2021 0706 Height,Weight and Vital Signs: Height 5 ft 3 in Weight 81.193 kg Last Vital Signs Temp 97.0 F 05/22/21 06:47 Pulse 91 05/22/21 06:47 Resp 17 05/22/21 06:47 BP 138/69 05/22/21 06:47 Pulse Ox 99 05/22/21 06:47 Airway Mallampati Class: II TM Dist: >3cm Neck ROM: Full Assessment and Plan Assessment Anesthesia Assessment: Anesthesia Plan Discussed and Chart Reviewed Final Anesthetic Review NPO: Yes ASA Class: II Final Preanesthetic Review: No Changes in Pt Med Stat, Meds/Allgs Chart Reviewed, Consent Obtained/Reviewed and Anes Risks/Benef Reviewed Patient Risk: Low Procedure Risk: Low Assessment/Block/Sedation in SS: Assess/Block/Sedation-SS Anesthetic Plan Anesthetic Plan: GA Disposition: Standard PACU
--- NOTE | 2021-05-22 07:07 | MHC.SHP ---
Pre-Procedural Eval Section A Date of Service: 05/22/21 Section B Chief Complaint: depression Details of Present Illness: recurrent depression PI Relevant Social History: None Present Medications: see Short Stay Collaborative assessment Medical History: Significant History (aortic graft ) History of Previous Operations: Relevant previous surgery/procedure and date(s) (ect aortic graft) Allergies: Allergies Allergy/AdvReac Type Severity Reaction Status Date / Time Sulfa (Sulfonamide Allergy Mild UNKNOWN Verified 03/06/21 06:44 Antibiotics) Sulfa antibotics Allergy Unknown Unknown Uncoded 02/11/21 13:32 Review of Systems Sugical H&P ROS: Negative: Psychiatric (PI) and Yes, Specify: Respiratory and Neurological Exam Surgical H&P Exam: Normal: HEENT, Normal: Heart and Normal: Lungs Plan Diagnosis/Plan: Unchanged I have reviewed the history and physical and performed a pertinent physical examination on my patient. No changes have occurred unless specified.
--- NOTE | 2021-05-22 07:23 | HO.ECTPROC ---
ECT Procedure Note Diagnosis/Treatment Date of Service: 05/22/21 Diagnosis: Schizoaffective Disorder Treatment: Maintenance Interval Clinical Notes: Pt with PI has started clozapine ECT Settings Device: THYMATRON DGx Electrode Placement: Bifrontal Program/Pulse Width: 0.50 Energy Percent: 70 Seizure Duration By EEG (in seconds): 22 Medications Administration General Anesthetic: Etomidate (16) Muscle Relaxant: Succinylcholine (100) Ancillary Medications Analgesics: Torodol - Pre ECT Anti-emetics: Zofran - Pre ECT Miscillaneous Medications: Propofol and Midazolam Airway Management Airway Management: Bag Mask Ventilation Treatment Recommendations No Changes Recommended: No change
[2021-05-22 07:24] VITALS: BP 135/69; PULSE 96; RESP 16; TEMP 36.3; O2SAT 99
[2021-05-22 07:29] VITALS: BP 104/58; PULSE 77; RESP 17; O2SAT 99
[2021-05-22 07:34] VITALS: BP 100/53; PULSE 74; RESP 17; O2SAT 97
[2021-05-22 07:39] VITALS: BP 105/62; PULSE 79; RESP 15; O2SAT 98
[2021-05-22 07:54] VITALS: BP 107/59; PULSE 73; RESP 17; TEMP 36.3; O2SAT 99
== END 2021-05-22 08:04 | disposition home or self-care (01) ==
PROVIDERS: PCP Internal Medicine; Visit Provider Psychiatry & Neurology Psychiatry
PROC: (CPT 90870; principal; 2021-05-22 07:30)
DX: F25.0 Schizoaffective disorder, bipolar type (principal); E03.9 Hypothyroidism, unspecified; Z79.899 Other long term (current) drug therapy; Z88.2 Allergy status to sulfonamides
CPT/HCPCS: 90870; J0330; J1885; J2250; J2405

== ENCOUNTER 2021-05-28 09:10 | Outpatient (REF) | payer MEDICARE, MEDICAID, SELFPAY ==
[2021-05-28 10:09] LABS: MANUAL DIFF FLAG NO
[2021-05-28 10:18] LABS: Basophils Percent Auto 0.1 % (0-2); Eosinophils Absolute Auto 0.1 X10*3/uL (0.0-0.4); Eosinophils Percent Auto 1.9 % (0-4); Hematocrit 40.6 % (37-47); Hemoglobin 12.9 g/dl (12.0-16.0); Imm Gran Abs Auto 0.02 X10*3/uL (0.00-0.03); Imm Gran Pct Auto 0.3 % (0.0-0.4); Lymphocytes Absolute Auto 1.2 X10*3/uL (1.2-4.9); Lymphocytes Percent Auto 17.3 % (20-40); Mean Corpuscular HGB Conc 31.8 g/dl (31.0-35.0); Mean Corpuscular Hemoglobin 30.2 pg (27.0-33.0); Mean Corpuscular Volume 95.1 fL (80-98); Mean Platelet Volume 10.5 fL (9.4-12.3); Monocytes Absolute Auto 0.6 X10*3/uL (0.1-1.2); Monocytes Percent Auto 9.2 % (2-11); Neutrophils Absolute Auto 4.9 X10*3/uL (2.0-8.3); Neutrophils Percent Auto 71.2 % (45-73); Platelet Count 260 X10*3/uL (160-400); Red Blood Count 4.27 X10*6/uL (4.20-5.50); Red Cell Distribution Width 12.8 % (11.0-16.0); White Blood Count 6.9 X10*3/uL (4.8-10.8)
== END 2021-05-28 09:11 | disposition home or self-care (01) ==
LOC: HO.LABR 09:10
PROVIDERS: PCP Internal Medicine; Visit Provider Psychiatry & Neurology Psychiatry
DX: Z79.899 Other long term (current) drug therapy (principal)
CPT/HCPCS: 36415; 85025

== ENCOUNTER 2021-06-04 08:35 | Outpatient (REF) | payer MEDICARE, MEDICAID, SELFPAY ==
[2021-06-04 09:44] LABS: MANUAL DIFF FLAG NO
[2021-06-04 10:07] LABS: Basophils Percent Auto 0.4 % (0-2); Eosinophils Absolute Auto 0.2 X10*3/uL (0.0-0.4); Eosinophils Percent Auto 2.1 % (0-4); Hematocrit 37.6 % (37-47); Hemoglobin 12.2 g/dl (12.0-16.0); Imm Gran Abs Auto 0.03 X10*3/uL (0.00-0.03); Imm Gran Pct Auto 0.4 % (0.0-0.4); Lymphocytes Absolute Auto 1.1 X10*3/uL (1.2-4.9); Lymphocytes Percent Auto 14.4 % (20-40); Mean Corpuscular HGB Conc 32.4 g/dl (31.0-35.0); Mean Corpuscular Hemoglobin 30.7 pg (27.0-33.0); Mean Corpuscular Volume 94.5 fL (80-98); Mean Platelet Volume 10.4 fL (9.4-12.3); Monocytes Absolute Auto 0.5 X10*3/uL (0.1-1.2); Monocytes Percent Auto 6.8 % (2-11); Neutrophils Absolute Auto 5.6 X10*3/uL (2.0-8.3); Neutrophils Percent Auto 75.9 % (45-73); Platelet Count 272 X10*3/uL (160-400); Red Blood Count 3.98 X10*6/uL (4.20-5.50); Red Cell Distribution Width 12.8 % (11.0-16.0); White Blood Count 7.3 X10*3/uL (4.8-10.8)
== END 2021-06-04 08:36 | disposition home or self-care (01) ==
LOC: HO.LABR 08:35
PROVIDERS: PCP Internal Medicine; Visit Provider Psychiatry & Neurology Psychiatry
DX: Z51.81 Encounter for therapeutic drug level monitoring (principal); Z79.899 Other long term (current) drug therapy
CPT/HCPCS: 36415; 85025

== ENCOUNTER 2021-06-05 06:01 | Day surgery (SDC) | payer MEDICARE, MEDICAID, SELFPAY ==
[2021-06-05] VITALS (7 sets, daily range): BP systolic 123–154; BP diastolic 59–75; PULSE 52–91; RESP 16–17; TEMP 36.4–37.8; O2SAT 96–100; BMI 31.6
--- NOTE | 2021-06-05 06:59 | HO.ANESPROP2 ---
[facility] Active Problems Active Problems: All Active Problems (Updated 02/11/21 @ 13:42 by Bashir Tadeo MD) Preoperative clearance (Acute) Hypothyroid (Acute) Schizoaffective disorder, bipolar type (Acute) Past Medical History Medical History Depression Elevated cholesterol Hip fracture requiring operative repair Hypothyroid Liver laceration Liver problem Schizoaffective disorder, bipolar type Family History Family History Mother No problems noted. Father No problems noted. Surgical History Surgical History H/O rhinoplasty History of hip surgery History of tracheostomy Status post aortic coarctation stent placement Social History Social History Are you a primary lawn care specialist to a significant other at home: No Do you presently have visiting nurse or other home services: No Alcohol intake: never Second Hand Smoke Exposure: No Are you DNR?: No Advance Directives: No Advance Directives Information Provided: Yes Recently lost weight without trying: No Meds Allergies Allergy/AdvReac Type Severity Reaction Status Date / Time Sulfa (Sulfonamide Allergy Mild UNKNOWN Verified 03/06/21 06:44 Antibiotics) Sulfa antibotics Allergy Unknown Unknown Uncoded 02/11/21 13:32 Home Medications Medication Instructions Recorded Confirmed Last Taken Type atorvastatin 1 tab PO DAILY 09/04/20 02/11/21 Unknown History donepezil 1 tab PO DAILY 09/04/20 02/11/21 Unknown History fluvoxamine mg PO 09/04/20 02/11/21 Unknown History levothyroxine 1 tab PO DAILY 09/04/20 02/11/21 Unknown History lithium carbonate 1 cap PO BID 09/04/20 02/11/21 Unknown History olanzapine mg PO 09/04/20 02/11/21 01/16/21 History benztropine 1 mg tablet 1 mg PO BID 02/11/21 02/11/21 Unknown History gabapentin 100 mg capsule 100 mg PO TID 02/11/21 02/11/21 Unknown History lithium carbonate 450 mg 450 mg PO BID 02/11/21 02/11/21 Unknown History tablet,extended release lorazepam 1 mg tablet 1 mg PO QID PRN 02/11/21 02/11/21 Unknown History omeprazole 40 mg capsule,delayed 40 mg PO DAILY 02/11/21 02/11/21 Unknown History release Exam Exam Date and Time: June 05, 2021 0659 Height,Weight and Vital Signs: Height 5 ft 3 in Weight 81.193 kg Last Vital Signs Temp 97.6 F 06/05/21 06:42 Pulse 91 06/05/21 06:42 Resp 17 06/05/21 06:42 BP 154/75 H 06/05/21 06:42 Pulse Ox 97 06/05/21 06:42 Airway Mallampati Class: II TM Dist: >3cm Neck ROM: Full Assessment and Plan Assessment Anesthesia Assessment: Anesthesia Plan Discussed and Chart Reviewed Final Anesthetic Review NPO: Yes ASA Class: II Final Preanesthetic Review: No Changes in Pt Med Stat, Meds/Allgs Chart Reviewed, Consent Obtained/Reviewed and Anes Risks/Benef Reviewed Patient Risk: Low Procedure Risk: Low Assessment/Block/Sedation in SS: Assess/Block/Sedation-SS Anesthetic Plan Anesthetic Plan: GA Disposition: Standard PACU
--- NOTE | 2021-06-05 07:10 | MHC.SHP ---
Pre-Procedural Eval Section A Date of Service: 06/05/21 The patient is an INPATIENT: No Changes since office visit: Yes Changes in Medication and Yes Patient answered all questions; No Cold of Flu in the past 2 weeks and No New Medical Problems The History & Physical has been completed within 30 days and I have reviewed it.: Yes Section B Chief Complaint: depression Allergies: Allergies Allergy/AdvReac Type Severity Reaction Status Date / Time Sulfa (Sulfonamide Allergy Mild UNKNOWN Verified 03/06/21 06:44 Antibiotics) Sulfa antibotics Allergy Unknown Unknown Uncoded 02/11/21 13:32 Plan I have reviewed the history and physical and performed a pertinent physical examination on my patient. No changes have occurred unless specified.
--- NOTE | 2021-06-05 07:22 | HO.ECTPROC ---
ECT Procedure Note Diagnosis/Treatment Date of Service: 06/05/21 Current Treatment Number: 1 Treatment: Series Interval Clinical Notes: pt on 50 mg clozapine less anxious pos paranoia ECT Settings Device: THYMATRON DGx Electrode Placement: Bifrontal Program/Pulse Width: 0.50 Energy Percent: 70 Seizure Duration By EEG (in seconds): 61 Medications Administration General Anesthetic: Etomidate (16) Muscle Relaxant: Succinylcholine (100) Ancillary Medications Analgesics: Torodol - Pre ECT Anti-emetics: Zofran - Pre ECT Miscillaneous Medications: Propofol and Midazolam Airway Management Airway Management: Bag Mask Ventilation Treatment Recommendations No Changes Recommended: No change Notes: will schedule ect in 3 weeks Pt Tolerated Procedure w/o Issue: Yes
[2021-06-05 07:41] LABS: MANUAL DIFF FLAG NO
[2021-06-05 07:45] LABS: Basophils Absolute Auto 0.1 X10*3/uL (0.0-0.2); Basophils Percent Auto 0.6 % (0-2); Eosinophils Absolute Auto 0.1 X10*3/uL (0.0-0.4); Eosinophils Percent Auto 0.7 % (0-4); Hematocrit 39.3 % (37-47); Hemoglobin 12.1 g/dl (12.0-16.0); Imm Gran Abs Auto 0.02 X10*3/uL (0.00-0.03); Imm Gran Pct Auto 0.2 % (0.0-0.4); Lymphocytes Absolute Auto 0.9 X10*3/uL (1.2-4.9); Lymphocytes Percent Auto 11.3 % (20-40); Mean Corpuscular HGB Conc 30.8 g/dl (31.0-35.0); Mean Corpuscular Hemoglobin 30.9 pg (27.0-33.0); Mean Corpuscular Volume 100.3 fL (80-98); Mean Platelet Volume 9.9 fL (9.4-12.3); Monocytes Absolute Auto 0.4 X10*3/uL (0.1-1.2); Monocytes Percent Auto 5.3 % (2-11); Neutrophils Absolute Auto 6.6 X10*3/uL (2.0-8.3); Neutrophils Percent Auto 81.9 % (45-73); Platelet Count 221 X10*3/uL (160-400); Red Blood Count 3.92 X10*6/uL (4.20-5.50); Red Cell Distribution Width 13.2 % (11.0-16.0); White Blood Count 8.1 X10*3/uL (4.8-10.8)
[2021-06-05 08:21] LABS: Lithium 0.54 mmol/L (0.60-1.20)
[2021-06-05 08:31] LABS: Alanine Aminotransferase 12 U/L (0-31); Alkaline Phosphatase 74 U/L (39-117); Anion Gap 12 (12-20); Aspartate Amino Transferase 15 U/L (5-31); Bilirubin Total 0.4 mg/dL (0.0-1.0); Blood Urea Nitrogen 8 mg/dL (9-16); Calcium 8.9 mg/dL (8.4-10.2); Carbon Dioxide 21 mmol/L (22-29); Chloride 111 mmol/L (96-108); Creatinine Clr Calc Pharmacy 81.5; Estimated Glomerular Filt Rate > 60; Glucose Fasting 135 mg/dL (60-99); Potassium 4.4 mmol/L (3.3-5.1); Sodium 140 mmol/L (135-145); Total Protein 6.4 g/dL (6.5-8.0)
[2021-06-05 08:51] LABS: TSH reflex Free T4 0.69 uIU/mL (0.32-4.0)
== END 2021-06-05 08:30 | disposition home or self-care (01) ==
PROVIDERS: PCP Internal Medicine; Visit Provider Psychiatry & Neurology Psychiatry
PROC: (CPT 90870; principal; 2021-06-05 07:00)
DX: F25.0 Schizoaffective disorder, bipolar type (principal)
CPT/HCPCS: 36415; 80053; 80178; 84443; 85025; 90870; J0330; J1885; J2250; J2405

== ENCOUNTER 2021-06-11 09:19 | Outpatient (REF) | payer MEDICARE, MEDICAID, SELFPAY ==
[2021-06-11 09:50] LABS: MANUAL DIFF FLAG NO
[2021-06-11 09:54] LABS: Basophils Percent Auto 0.5 % (0-2); Eosinophils Absolute Auto 0.2 X10*3/uL (0.0-0.4); Eosinophils Percent Auto 2.7 % (0-4); Hematocrit 39.5 % (37-47); Hemoglobin 12.7 g/dl (12.0-16.0); Imm Gran Abs Auto 0.02 X10*3/uL (0.00-0.03); Imm Gran Pct Auto 0.3 % (0.0-0.4); Lymphocytes Absolute Auto 1.4 X10*3/uL (1.2-4.9); Lymphocytes Percent Auto 19.6 % (20-40); Mean Corpuscular HGB Conc 32.2 g/dl (31.0-35.0); Mean Corpuscular Hemoglobin 30.6 pg (27.0-33.0); Mean Corpuscular Volume 95.2 fL (80-98); Mean Platelet Volume 9.8 fL (9.4-12.3); Monocytes Absolute Auto 0.5 X10*3/uL (0.1-1.2); Monocytes Percent Auto 6.1 % (2-11); Neutrophils Absolute Auto 5.2 X10*3/uL (2.0-8.3); Neutrophils Percent Auto 70.8 % (45-73); Platelet Count 242 X10*3/uL (160-400); Red Blood Count 4.15 X10*6/uL (4.20-5.50); Red Cell Distribution Width 13.1 % (11.0-16.0); White Blood Count 7.4 X10*3/uL (4.8-10.8)
== END 2021-06-11 09:20 | disposition home or self-care (01) ==
LOC: HO.LABR 09:19
PROVIDERS: PCP Internal Medicine; Visit Provider Psychiatry & Neurology Psychiatry
DX: Z51.81 Encounter for therapeutic drug level monitoring (principal); Z79.899 Other long term (current) drug therapy
CPT/HCPCS: 36415; 85025

== ENCOUNTER 2021-06-18 09:05 | Outpatient (REF) | payer MEDICARE, MEDICAID, SELFPAY ==
[2021-06-18 10:17] LABS: MANUAL DIFF FLAG NO
[2021-06-18 10:28] LABS: Basophils Absolute Auto 0.1 X10*3/uL (0.0-0.2); Basophils Percent Auto 0.7 % (0-2); Eosinophils Absolute Auto 0.2 X10*3/uL (0.0-0.4); Eosinophils Percent Auto 2.5 % (0-4); Hematocrit 39.9 % (37-47); Hemoglobin 12.7 g/dl (12.0-16.0); Imm Gran Abs Auto 0.01 X10*3/uL (0.00-0.03); Imm Gran Pct Auto 0.1 % (0.0-0.4); Lymphocytes Absolute Auto 1.1 X10*3/uL (1.2-4.9); Lymphocytes Percent Auto 15.5 % (20-40); Mean Corpuscular HGB Conc 31.8 g/dl (31.0-35.0); Mean Corpuscular Volume 94.1 fL (80-98); Mean Platelet Volume 10.1 fL (9.4-12.3); Monocytes Absolute Auto 0.4 X10*3/uL (0.1-1.2); Monocytes Percent Auto 6.1 % (2-11); Neutrophils Absolute Auto 5.3 X10*3/uL (2.0-8.3); Neutrophils Percent Auto 75.1 % (45-73); Platelet Count 262 X10*3/uL (160-400); Red Blood Count 4.24 X10*6/uL (4.20-5.50); Red Cell Distribution Width 12.9 % (11.0-16.0); White Blood Count 7.1 X10*3/uL (4.8-10.8)
== END 2021-06-18 09:06 | disposition home or self-care (01) ==
LOC: HO.LABR 09:05
PROVIDERS: PCP Internal Medicine; Visit Provider Psychiatry & Neurology Psychiatry
DX: Z79.899 Other long term (current) drug therapy (principal)
CPT/HCPCS: 36415; 85025

== ENCOUNTER 2021-06-26 06:12 | Day surgery (SDC) | payer MEDICARE, MEDICAID, SELFPAY ==
[2021-06-26] VITALS (7 sets, daily range): BP systolic 96–148; BP diastolic 51–68; PULSE 67–83; RESP 16–20; TEMP 36.4–37.5; O2SAT 95–99; BMI 31.6
[2021-06-26 06:44] LABS: UPreg QC Valid YES; Urine Pregnancy NEGATIVE (NEGATIVE)
--- NOTE | 2021-06-26 06:55 | P.CONAN_ITS ---
[facility] Active Problems Active Problems: All Active Problems (Updated 02/11/21 @ 13:42 by Bashir burgos MD) Preoperative clearance (Acute) Hypothyroid (Acute) Schizoaffective disorder, bipolar type (Acute) Past Medical History Medical History Depression Elevated cholesterol Hip fracture requiring operative repair Hypothyroid Liver laceration Liver problem Schizoaffective disorder, bipolar type Family History Family History Mother No problems noted. Father No problems noted. Family history of problems with anesthesia: No Surgical History Surgical History H/O rhinoplasty History of hip surgery History of tracheostomy Status post aortic coarctation stent placement History of Problems with Anesthesia: No Social History Social History Are you a primary career development coordinator/teacher to a significant other at home: No Do you presently have visiting nurse or other home services: No Alcohol intake: never Second Hand Smoke Exposure: No Advance Directives: No Advance Directives Information Provided: Yes Meds Allergies Allergy/AdvReac Type Severity Reaction Status Date / Time Sulfa (Sulfonamide Allergy Mild UNKNOWN Verified 03/06/21 06:44 Antibiotics) Sulfa antibotics Allergy Unknown Unknown Uncoded 02/11/21 13:32 Home Medications Medication Instructions Recorded Confirmed Last Taken Type atorvastatin 20 mg tablet 1 tab PO DAILY 09/04/20 02/11/21 Unknown History donepezil 10 mg tablet 1 tab PO DAILY 09/04/20 02/11/21 Unknown History fluvoxamine 25 mg tablet mg PO 09/04/20 02/11/21 Unknown History levothyroxine 112 mcg tablet 1 tab PO DAILY 09/04/20 02/11/21 Unknown History lithium carbonate 150 mg capsule 1 cap PO BID 09/04/20 02/11/21 Unknown History olanzapine 10 mg tablet mg PO 09/04/20 02/11/21 01/16/21 History benztropine 1 mg tablet 1 mg PO BID 02/11/21 02/11/21 Unknown History gabapentin 100 mg capsule 100 mg PO TID 02/11/21 02/11/21 Unknown History lithium carbonate 450 mg 450 mg PO BID 02/11/21 02/11/21 Unknown History tablet,extended release lorazepam 1 mg tablet 1 mg PO QID PRN 02/11/21 02/11/21 Unknown History omeprazole 40 mg capsule,delayed 40 mg PO DAILY 02/11/21 02/11/21 Unknown History release Exam Exam Date and Time: June 26, 2021 0655 Pertinent Lab Results Pertinent Lab Results: Laboratory Tests 06/26/21 06:17 Urine Test NEGATIVE Airway Mallampati Class: II TM Dist: >3cm Neck ROM: Full Heart: rrr Lungs: cta Assessment and Plan Assessment Anesthesia Assessment: Anesthesia Plan Discussed and Chart Reviewed Final Anesthetic Review Family History of Problems with Anesthesia: No History of Problems with Anesthesia: No NPO: Yes ASA Class: III Final Preanesthetic Review: No Changes in Pt Med Stat, Meds/Allgs Chart Reviewed and Consent Obtained/Reviewed Patient Risk: Intermediate Procedure Risk: Intermediate Anesthetic Plan Anesthetic Plan: GA Disposition: Standard PACU
--- NOTE | 2021-06-26 07:09 | MHC.SHP ---
Pre-Procedural Eval Section A Date of Service: 06/26/21 Section B Chief Complaint: major depressive disorder Details of Present Illness: recurrent depression Relevant Family History (Specify if Yes): No Relevant Social History: None Present Medications: see Short Stay Collaborative assessment Medical History: Significant History (aortic repair ) Allergies: Allergies Allergy/AdvReac Type Severity Reaction Status Date / Time Sulfa (Sulfonamide Allergy Mild UNKNOWN Verified 03/06/21 06:44 Antibiotics) Sulfa antibotics Allergy Unknown Unknown Uncoded 02/11/21 13:32 Review of Systems Sugical H&P ROS: Negative: Cardiovascular and Respiratory and Yes, Specify: Psychiatric (Paranoia ) Exam Surgical H&P Exam: Normal: Heart and Normal: Lungs Plan Diagnosis/Plan: Unchanged I have reviewed the history and physical and performed a pertinent physical examination on my patient. No changes have occurred unless specified.
--- NOTE | 2021-06-26 07:28 | HO.ECTPROC ---
ECT Procedure Note Diagnosis/Treatment Date of Service: 06/26/21 Diagnosis: Schizoaffective Disorder Treatment: Maintenance Interval Clinical Notes: pt with paranoid ideation periods of depression ECT Settings Device: THYMATRON DGx Electrode Placement: Bifrontal Program/Pulse Width: 0.50 Energy Percent: 70 Seizure Duration By EEG (in seconds): 54 Medications Administration General Anesthetic: Etomidate (16) Muscle Relaxant: Succinylcholine (100) Ancillary Medications Analgesics: Torodol - Pre ECT Anti-emetics: Zofran - Pre ECT Miscillaneous Medications: Propofol and Midazolam Airway Management Airway Management: Bag Mask Ventilation Treatment Recommendations No Changes Recommended: No change Pt Tolerated Procedure w/o Issue: Yes
== END 2021-06-26 08:30 | disposition home or self-care (01) ==
PROVIDERS: PCP Internal Medicine; Visit Provider Psychiatry & Neurology Psychiatry
PROC: (CPT 90870; principal; 2021-06-26 07:00)
DX: F25.0 Schizoaffective disorder, bipolar type (principal)
CPT/HCPCS: 81025; 90870; J0330; J1885; J2250; J2405

== ENCOUNTER 2021-07-22 05:59 | Day surgery (SDC) | payer MEDICARE, MEDICAID, SELFPAY ==
[2021-07-22] VITALS (7 sets, daily range): BP systolic 106–150; BP diastolic 50–87; PULSE 71–88; RESP 16–18; TEMP 36.6–37.3; O2SAT 95–100; BMI 31.6
--- NOTE | 2021-07-22 07:08 | MHC.SHP ---
Pre-Procedural Eval Section A Date of Service: 07/22/21 The patient is an INPATIENT: No Changes since office visit: Yes Patient answered all questions; No Cold of Flu in the past 2 weeks, No New Medical Problems and No Changes in Medication The History & Physical has been completed within 30 days and I have reviewed it.: Yes Section B Chief Complaint: depression Allergies: Allergies Allergy/AdvReac Type Severity Reaction Status Date / Time Sulfa (Sulfonamide Allergy Mild UNKNOWN Verified 03/06/21 06:44 Antibiotics) Sulfa antibotics Allergy Unknown Unknown Uncoded 02/11/21 13:32 Plan I have reviewed the history and physical and performed a pertinent physical examination on my patient. No changes have occurred unless specified.
--- NOTE | 2021-07-22 07:13 | P.CONAN_ITS ---
[facility] Active Problems Active Problems: All Active Problems (Updated 02/11/21 @ 13:42 by Bashir burgos MD) Preoperative clearance (Acute) Hypothyroid (Acute) Schizoaffective disorder, bipolar type (Acute) Past Medical History Medical History Depression Elevated cholesterol Hip fracture requiring operative repair Hypothyroid Liver laceration Liver problem Schizoaffective disorder, bipolar type Family History Family History Mother No problems noted. Father No problems noted. Family history of problems with anesthesia: No Surgical History Surgical History H/O rhinoplasty History of hip surgery History of tracheostomy Status post aortic coarctation stent placement History of Problems with Anesthesia: No Social History Social History Are you a primary direct support professional caregiver to a significant other at home: No Do you presently have visiting nurse or other home services: No Alcohol intake: never Second Hand Smoke Exposure: No Advance Directives: No Advance Directives Information Provided: Yes Meds Allergies Allergy/AdvReac Type Severity Reaction Status Date / Time Sulfa (Sulfonamide Allergy Mild UNKNOWN Verified 03/06/21 06:44 Antibiotics) Sulfa antibotics Allergy Unknown Unknown Uncoded 02/11/21 13:32 Home Medications Medication Instructions Recorded Confirmed Last Taken Type atorvastatin 20 mg tablet 1 tab PO DAILY 09/04/20 02/11/21 Unknown History donepezil 10 mg tablet 1 tab PO DAILY 09/04/20 02/11/21 Unknown History fluvoxamine 25 mg tablet mg PO 09/04/20 02/11/21 Unknown History levothyroxine 112 mcg tablet 1 tab PO DAILY 09/04/20 02/11/21 Unknown History lithium carbonate 150 mg capsule 1 cap PO BID 09/04/20 02/11/21 Unknown History olanzapine 10 mg tablet mg PO 09/04/20 02/11/21 01/16/21 History benztropine 1 mg tablet 1 mg PO BID 02/11/21 02/11/21 Unknown History gabapentin 100 mg capsule 100 mg PO TID 02/11/21 02/11/21 Unknown History lithium carbonate 450 mg 450 mg PO BID 02/11/21 02/11/21 Unknown History tablet,extended release lorazepam 1 mg tablet 1 mg PO QID PRN 02/11/21 02/11/21 Unknown History omeprazole 40 mg capsule,delayed 40 mg PO DAILY 02/11/21 02/11/21 Unknown History release Exam Exam Date and Time: July 22, 2021 0713 Height,Weight and Vital Signs: Height 5 ft 3 in Weight 81.193 kg Last Vital Signs Temp 98 F 07/22/21 06:19 Pulse 88 07/22/21 06:19 Resp 16 07/22/21 06:19 BP 150/72 H 07/22/21 06:19 Pulse Ox 98 07/22/21 06:19 Airway Mallampati Class: II TM Dist: >3cm Neck ROM: Full Assessment and Plan Assessment Anesthesia Assessment: Anesthesia Plan Discussed and Chart Reviewed Final Anesthetic Review Family History of Problems with Anesthesia: No History of Problems with Anesthesia: No NPO: Yes ASA Class: II Final Preanesthetic Review: No Changes in Pt Med Stat, Meds/Allgs Chart Reviewed, Consent Obtained/Reviewed and Anes Risks/Benef Reviewed Patient Risk: Low Procedure Risk: Low Assessment/Block/Sedation in SS: Assess/Block/Sedation-SS Anesthetic Plan Anesthetic Plan: GA Disposition: Standard PACU
--- NOTE | 2021-07-22 07:24 | HO.ECTPROC ---
ECT Procedure Note Diagnosis/Treatment Date of Service: 07/22/21 Diagnosis: Schizoaffective Disorder Previous ECT Date: 06/26/21 Treatment: Maintenance Interval Clinical Notes: pt relatively stable no si will be seeing w [facility] [place] ECT Settings Device: THYMATRON DGx Electrode Placement: Bifrontal Program/Pulse Width: 0.50 Energy Percent: 100 Seizure Duration By EEG (in seconds): 27 Medications Administration General Anesthetic: Etomidate (16) Muscle Relaxant: Succinylcholine (100) Ancillary Medications Analgesics: Torodol - Pre ECT Anti-emetics: Zofran - Pre ECT Miscillaneous Medications: Propofol and Midazolam Airway Management Airway Management: Bag Mask Ventilation Treatment Recommendations Notes: use flumazenil next tx cont maintenance tx Pt Tolerated Procedure w/o Issue: Yes
== END 2021-07-22 08:30 | disposition home or self-care (01) ==
PROVIDERS: PCP Internal Medicine; Visit Provider Psychiatry & Neurology Psychiatry
PROC: (CPT 90870; principal; 2021-07-22 08:00)
DX: F25.0 Schizoaffective disorder, bipolar type (principal); F33.9 Major depressive disorder, recurrent, unspecified; E03.9 Hypothyroidism, unspecified; Z88.2 Allergy status to sulfonamides; Z79.899 Other long term (current) drug therapy; Z87.891 Personal history of nicotine dependence
CPT/HCPCS: 90870; J0330; J1885; J2250; J2405

== ENCOUNTER 2021-08-14 05:59 | Day surgery (SDC) | payer MEDICARE, MEDICAID, SELFPAY ==
[2021-08-14] VITALS (7 sets, daily range): BP systolic 115–146; BP diastolic 65–74; PULSE 54–85; RESP 10–17; TEMP 36.1–36.6; O2SAT 97–100; BMI 31.6
--- NOTE | 2021-08-14 06:52 | P.CONAN_ITS ---
[facility] Active Problems Active Problems: All Active Problems (Updated 02/11/21 @ 13:42 by Bashir burgos MD) Preoperative clearance (Acute) Hypothyroid (Acute) Schizoaffective disorder, bipolar type (Acute) Past Medical History Medical History Depression Elevated cholesterol Hip fracture requiring operative repair Hypothyroid Liver laceration Liver problem Schizoaffective disorder, bipolar type Family History Family History Mother No problems noted. Father No problems noted. Family history of problems with anesthesia: No Surgical History Surgical History H/O rhinoplasty History of hip surgery History of tracheostomy Status post aortic coarctation stent placement History of Problems with Anesthesia: No Social History Social History Are you a primary aged or disabled care worker to a significant other at home: No Do you presently have visiting nurse or other home services: No Alcohol intake: never Second Hand Smoke Exposure: No Advance Directives: No Advance Directives Information Provided: No Meds Allergies Allergy/AdvReac Type Severity Reaction Status Date / Time Sulfa (Sulfonamide Allergy Mild UNKNOWN Verified 03/06/21 06:44 Antibiotics) Sulfa antibotics Allergy Unknown Unknown Uncoded 02/11/21 13:32 Active Medications: Current Medications Lactated Ringer's (Lr) 1,000 mls @ 50 mls/hr IVCONT .Q20H [facility] Home Medications Medication Instructions Recorded Confirmed Last Taken Type atorvastatin 20 mg tablet 1 tab PO DAILY 09/04/20 02/11/21 Unknown History donepezil 10 mg tablet 1 tab PO DAILY 09/04/20 02/11/21 Unknown History fluvoxamine 25 mg tablet mg PO 09/04/20 02/11/21 Unknown History levothyroxine 112 mcg tablet 1 tab PO DAILY 09/04/20 02/11/21 Unknown History lithium carbonate 150 mg capsule 1 cap PO BID 09/04/20 02/11/21 Unknown History olanzapine 10 mg tablet mg PO 09/04/20 02/11/21 01/16/21 History benztropine 1 mg tablet 1 mg PO BID 02/11/21 02/11/21 Unknown History gabapentin 100 mg capsule 100 mg PO TID 02/11/21 02/11/21 Unknown History lithium carbonate 450 mg 450 mg PO BID 02/11/21 02/11/21 Unknown History tablet,extended release lorazepam 1 mg tablet 1 mg PO QID PRN 02/11/21 02/11/21 Unknown History omeprazole 40 mg capsule,delayed 40 mg PO DAILY 02/11/21 02/11/21 Unknown History release Exam Exam Date and Time: August 14, 2021 0652 Height,Weight and Vital Signs: Height 5 ft 3 in Weight 81.193 kg Last Vital Signs Temp 96.9 F 08/14/21 06:25 Pulse 85 08/14/21 06:25 Resp 17 08/14/21 06:25 BP 146/65 H 08/14/21 06:25 Pulse Ox 99 08/14/21 06:25 Airway Mallampati Class: II TM Dist: >3cm Neck ROM: Full Heart: rrr Lungs: cta Assessment and Plan Assessment Anesthesia Assessment: Anesthesia Plan Discussed and Chart Reviewed Final Anesthetic Review Family History of Problems with Anesthesia: No History of Problems with Anesthesia: No NPO: Yes ASA Class: III Final Preanesthetic Review: No Changes in Pt Med Stat, Meds/Allgs Chart Reviewed and Consent Obtained/Reviewed Patient Risk: Intermediate Procedure Risk: Intermediate Anesthetic Plan Anesthetic Plan: GA Disposition: Standard PACU
--- NOTE | 2021-08-14 07:05 | MHC.SHP ---
Pre-Procedural Eval Section A Date of Service: 08/14/21 Section B Chief Complaint: depressive disorder Details of Present Illness: recurrent paranoia and depression Relevant Family History (Specify if Yes): Yes Relevant Social History: None Present Medications: see Short Stay Collaborative assessment History of Previous Operations: No relevant previous surgery (ect aortic ) Allergies: Allergies Allergy/AdvReac Type Severity Reaction Status Date / Time Sulfa (Sulfonamide Allergy Mild UNKNOWN Verified 03/06/21 06:44 Antibiotics) Sulfa antibotics Allergy Unknown Unknown Uncoded 02/11/21 13:32 Review of Systems Sugical H&P ROS: Negative: Cardiovascular and Respiratory Exam Surgical H&P Exam: Normal: Heart and Normal: Lungs Plan Diagnosis/Plan: Unchanged I have reviewed the history and physical and performed a pertinent physical examination on my patient. No changes have occurred unless specified.
--- NOTE | 2021-08-14 07:21 | HO.ECTPROC ---
ECT Procedure Note Diagnosis/Treatment Date of Service: 08/14/21 Diagnosis: Schizoaffective Disorder Treatment: Maintenance Interval Clinical Notes: pt with PI depressive sx change to rul for les memory effects ECT Settings Device: THYMATRON DGx Electrode Placement: Right Unilateral Program/Pulse Width: 0.50 Energy Percent: 100 Seizure Duration By EEG (in seconds): 68 Medications Administration General Anesthetic: Etomidate (16) Muscle Relaxant: Succinylcholine (100) Ancillary Medications Analgesics: Torodol - Pre ECT Anti-emetics: Zofran - Pre ECT Miscillaneous Medications: Propofol and Midazolam Airway Management Airway Management: Bag Mask Ventilation Treatment Recommendations Notes: lower energy
[2021-08-14 07:26] LABS: UPreg QC Valid YES; Urine Pregnancy NEGATIVE (NEGATIVE)
== END 2021-08-14 08:20 | disposition home or self-care (01) ==
PROVIDERS: PCP Internal Medicine; Visit Provider Psychiatry & Neurology Psychiatry
PROC: (CPT 90870; principal; 2021-08-14 08:00)
DX: F25.0 Schizoaffective disorder, bipolar type (principal)
CPT/HCPCS: 81025; 90870; J0330; J1885; J2250; J2405

== ENCOUNTER → 2021-08-28 06:00 | Day surgery (SDC) | payer MEDICARE, MEDICAID, SELFPAY ==
[2021-08-28 06:14] VITALS: BP 156/76; PULSE 101; RESP 18; TEMP 37.1; O2SAT 98; BMI 31.6
--- NOTE | 2021-08-28 06:41 | HO.ANESPROP2 ---
[facility] Active Problems Active Problems: All Active Problems (Updated 02/11/21 @ 13:42 by Bashir Tadeo MD) Preoperative clearance (Acute) Hypothyroid (Acute) Schizoaffective disorder, bipolar type (Acute) Past Medical History Medical History Depression Elevated cholesterol Hip fracture requiring operative repair Hypothyroid Liver laceration Liver problem Schizoaffective disorder, bipolar type Family History Family History Mother No problems noted. Father No problems noted. Family history of problems with anesthesia: No Surgical History Surgical History H/O rhinoplasty History of hip surgery History of tracheostomy Status post aortic coarctation stent placement History of Problems with Anesthesia: No Social History Social History Are you a primary toddler caregiver to a significant other at home: No Do you presently have visiting nurse or other home services: No Alcohol intake: never Second Hand Smoke Exposure: No Advance Directives: No Advance Directives Information Provided: Yes Meds Allergies Allergy/AdvReac Type Severity Reaction Status Date / Time Sulfa (Sulfonamide Allergy Mild UNKNOWN Verified 03/06/21 06:44 Antibiotics) Sulfa antibotics Allergy Unknown Unknown Uncoded 02/11/21 13:32 Active Medications: Current Medications Lactated Ringer's (Lr) 1,000 mls @ 50 mls/hr IVCONT .Q20H [facility] Home Medications Medication Instructions Recorded Confirmed Last Taken Type atorvastatin 20 mg tablet 1 tab PO DAILY 09/04/20 02/11/21 Unknown History donepezil 10 mg tablet 1 tab PO DAILY 09/04/20 02/11/21 Unknown History fluvoxamine 25 mg tablet mg PO 09/04/20 02/11/21 Unknown History levothyroxine 112 mcg tablet 1 tab PO DAILY 09/04/20 02/11/21 Unknown History lithium carbonate 150 mg capsule 1 cap PO BID 09/04/20 02/11/21 Unknown History olanzapine 10 mg tablet mg PO 09/04/20 02/11/21 01/16/21 History benztropine 1 mg tablet 1 mg PO BID 02/11/21 02/11/21 Unknown History gabapentin 100 mg capsule 100 mg PO TID 02/11/21 02/11/21 Unknown History lithium carbonate 450 mg 450 mg PO BID 02/11/21 02/11/21 Unknown History tablet,extended release lorazepam 1 mg tablet 1 mg PO QID PRN 02/11/21 02/11/21 Unknown History omeprazole 40 mg capsule,delayed 40 mg PO DAILY 02/11/21 02/11/21 Unknown History release Exam Exam Date and Time: August 28, 2021 0641 Height,Weight and Vital Signs: Height 5 ft 3 in Weight 81.193 kg Last Vital Signs Temp 98.8 F 08/28/21 06:14 Pulse 101 H 08/28/21 06:14 Resp 18 08/28/21 06:14 BP 156/76 H 08/28/21 06:14 Pulse Ox 98 08/28/21 06:14 Airway Mallampati Class: II TM Dist: >3cm Neck ROM: Full Heart: rrr Lungs: cta Assessment and Plan Assessment Anesthesia Assessment: Anesthesia Plan Discussed and Chart Reviewed Final Anesthetic Review Family History of Problems with Anesthesia: No History of Problems with Anesthesia: No NPO: Yes ASA Class: III Final Preanesthetic Review: No Changes in Pt Med Stat, Meds/Allgs Chart Reviewed and Consent Obtained/Reviewed Patient Risk: Intermediate Procedure Risk: Intermediate Anesthetic Plan Anesthetic Plan: GA Disposition: Standard PACU
--- NOTE | 2021-08-28 07:00 | MHC.SHP ---
Pre-Procedural Eval Section A Date of Service: 08/28/21 The patient is an INPATIENT: No Changes since office visit: No Cold of Flu in the past 2 weeks, No New Medical Problems, No Changes in Medication and No Patient answered all questions The History & Physical has been completed within 30 days and I have reviewed it.: Yes Section B Chief Complaint: Severe Depression Allergies: Allergies Allergy/AdvReac Type Severity Reaction Status Date / Time Sulfa (Sulfonamide Allergy Mild UNKNOWN Verified 03/06/21 06:44 Antibiotics) Sulfa antibotics Allergy Unknown Unknown Uncoded 02/11/21 13:32 Plan I have reviewed the history and physical and performed a pertinent physical examination on my patient. No changes have occurred unless specified.
== END ==
PROVIDERS: PCP Internal Medicine; Visit Provider Psychiatry & Neurology Psychiatry
DX: F33.3 Major depressive disorder, recurrent, severe with psychotic symptoms (principal); Z53.29 Procedure and treatment not carried out because of patient's decision for other reasons; Z79.899 Other long term (current) drug therapy; Z88.2 Allergy status to sulfonamides
CPT/HCPCS: J0330; J1885; J2250; J2405

== ENCOUNTER 2021-08-31 10:45 | Outpatient (REF) | payer MEDICARE, MEDICAID, SELFPAY ==
[2021-08-31 11:41] LABS: Lithium 0.87 mmol/L (0.60-1.20)
[2021-08-31 11:53] LABS: Alanine Aminotransferase 16 U/L (0-31); Albumin Level 4.8 g/dL (3.5-5.0); Alkaline Phosphatase 83 U/L (39-117); Anion Gap 12 (12-20); Aspartate Amino Transferase 18 U/L (5-31); Bilirubin Total 0.4 mg/dL (0.0-1.0); Blood Urea Nitrogen 8 mg/dL (9-16); Calcium 10.2 mg/dL (8.4-10.2); Carbon Dioxide 27 mmol/L (22-29); Chloride 105 mmol/L (96-108); Estimated Glomerular Filt Rate > 60; Glucose Random 112 mg/dL (60-115); Potassium 4.6 mmol/L (3.3-5.1); Sodium 139 mmol/L (135-145); Total Protein 7.2 g/dL (6.5-8.0)
[2021-08-31 12:08] LABS: Thyroid Stimulating Hormone 1.12 uIU/mL (0.32-4.0)
== END 2021-08-31 10:46 | disposition home or self-care (01) ==
LOC: HO.LAB 10:45
PROVIDERS: PCP Internal Medicine; Visit Provider Psychiatry & Neurology Psychiatry
DX: Z51.81 Encounter for therapeutic drug level monitoring (principal); Z79.899 Other long term (current) drug therapy
CPT/HCPCS: 36415; 80053; 80178; 84443

== ENCOUNTER → 2021-09-11 10:01 | Outpatient (REF) | payer MEDICARE, MEDICAID, SELFPAY ==
--- NOTE | 2021-09-11 10:10 | ECG_ITS ---
Test Reason : preop Blood Pressure : / mmHG Vent. Rate : 085 BPM Atrial Rate : 085 BPM P-R Int : 170 ms QRS Dur : 088 ms QT Int : 372 ms P-R-T Axes : 060 008 048 degrees QTc Int : 442 ms Normal sinus rhythm Possible Left atrial enlargement Nonspecific T wave abnormality Abnormal ECG When compared with ECG of 16-MAY-2020 07:56, T wave amplitude has decreased in Lateral leads Referred By: Jose Carlos Alvarez Electronically Signed By:LEDY GARCIA MD
[2021-09-11 10:15] LABS: MANUAL DIFF FLAG NO
[2021-09-11 10:43] LABS: Basophils Percent Auto 0.4 % (0-2); Eosinophils Absolute Auto 0.1 X10*3/uL (0.0-0.4); Eosinophils Percent Auto 1.6 % (0-4); Hematocrit 38.3 % (37-47); Hemoglobin 12.6 g/dl (12.0-16.0); Imm Gran Abs Auto 0.02 X10*3/uL (0.00-0.03); Imm Gran Pct Auto 0.3 % (0.0-0.4); Lymphocytes Absolute Auto 1.3 X10*3/uL (1.2-4.9); Lymphocytes Percent Auto 19.2 % (20-40); Mean Corpuscular HGB Conc 32.9 g/dl (31.0-35.0); Mean Corpuscular Volume 94.3 fL (80-98); Monocytes Absolute Auto 0.4 X10*3/uL (0.1-1.2); Monocytes Percent Auto 5.7 % (2-11); Neutrophils Percent Auto 72.8 % (45-73); Platelet Count 204 X10*3/uL (160-400); Red Blood Count 4.06 X10*6/uL (4.20-5.50); Red Cell Distribution Width 13.2 % (11.0-16.0); White Blood Count 6.9 X10*3/uL (4.8-10.8)
[2021-09-11 11:05] LABS: Alanine Aminotransferase 18 U/L (0-31); Albumin Level 4.8 g/dL (3.5-5.0); Alkaline Phosphatase 80 U/L (39-117); Anion Gap 12 (12-20); Aspartate Amino Transferase 18 U/L (5-31); Bilirubin Total 0.8 mg/dL (0.0-1.0); Blood Urea Nitrogen 9 mg/dL (9-16); Calcium 10.3 mg/dL (8.4-10.2); Carbon Dioxide 26 mmol/L (22-29); Chloride 105 mmol/L (96-108); Estimated Glomerular Filt Rate 50; Glucose Fasting 194 mg/dL (60-99); Potassium 4.5 mmol/L (3.3-5.1); Sodium 138 mmol/L (135-145); Total Protein 7.3 g/dL (6.5-8.0)
[2021-09-11 11:18] LABS: Lithium 1.82 mmol/L (0.60-1.20)
[2021-09-11 11:27] LABS: Thyroid Stimulating Hormone 0.55 uIU/mL (0.32-4.0)
== END ==
LOC: HO.CARD 10:01
PROVIDERS: PCP Internal Medicine; Visit Provider Psychiatry & Neurology Psychiatry
DX: Z01.818 Encounter for other preprocedural examination (principal); Z79.899 Other long term (current) drug therapy
CPT/HCPCS: 36415; 80053; 80178; 84443; 85025; 93005

== ENCOUNTER 2021-09-12 10:46 | Outpatient (REF) | payer MEDICARE, MEDICAID, SELFPAY ==
[2021-09-12 11:03] LABS: MANUAL DIFF FLAG NO
[2021-09-12 11:52] LABS: Basophils Percent Auto 0.5 % (0-2); Eosinophils Absolute Auto 0.2 X10*3/uL (0.0-0.4); Eosinophils Percent Auto 1.9 % (0-4); Hematocrit 36.6 % (37-47); Hemoglobin 12.1 g/dl (12.0-16.0); Imm Gran Abs Auto 0.02 X10*3/uL (0.00-0.03); Imm Gran Pct Auto 0.3 % (0.0-0.4); Lymphocytes Percent Auto 13.1 % (20-40); Mean Corpuscular HGB Conc 33.1 g/dl (31.0-35.0); Mean Corpuscular Hemoglobin 30.9 pg (27.0-33.0); Mean Corpuscular Volume 93.6 fL (80-98); Mean Platelet Volume 10.9 fL (9.4-12.3); Monocytes Absolute Auto 0.6 X10*3/uL (0.1-1.2); Monocytes Percent Auto 7.4 % (2-11); Neutrophils Percent Auto 76.8 % (45-73); Platelet Count 198 X10*3/uL (160-400); Red Blood Count 3.91 X10*6/uL (4.20-5.50); Red Cell Distribution Width 13.1 % (11.0-16.0); White Blood Count 7.8 X10*3/uL (4.8-10.8)
[2021-09-12 12:26] LABS: Lithium 1.28 mmol/L (0.60-1.20)
== END 2021-09-12 10:47 | disposition home or self-care (01) ==
LOC: HO.LAB 10:46
PROVIDERS: PCP Internal Medicine; Visit Provider Psychiatry & Neurology Psychiatry
DX: F31.11 Bipolar disorder, current episode manic without psychotic features, mild (principal); Z79.899 Other long term (current) drug therapy
CPT/HCPCS: 36415; 80178; 85025

== ENCOUNTER 2021-09-25 05:56 | Day surgery (SDC) | payer MEDICARE, MEDICAID, SELFPAY ==
[2021-09-25] VITALS (7 sets, daily range): BP systolic 108–142; BP diastolic 53–72; PULSE 53–94; RESP 16–20; TEMP 36.8–36.9; O2SAT 95–100; BMI 31.8
--- NOTE | 2021-09-25 07:08 | MHC.SHP ---
Pre-Procedural Eval Section A Date of Service: 09/25/21 The patient is an INPATIENT: No Changes since office visit: No Cold of Flu in the past 2 weeks, No New Medical Problems, No Changes in Medication and No Patient answered all questions Section B Chief Complaint: depression Details of Present Illness: The patient reported sporadic dysphoria. No new changes. Relevant Family History (Specify if Yes): No Relevant Social History: None Present Medications: None Medical History: No relevant PMH History of Previous Operations: No relevant previous surgery Allergies: Allergies Allergy/AdvReac Type Severity Reaction Status Date / Time Sulfa (Sulfonamide Allergy Mild UNKNOWN Verified 03/06/21 06:44 Antibiotics) Sulfa antibotics Allergy Unknown Unknown Uncoded 02/11/21 13:32 Review of Systems Sugical H&P ROS: Negative: Constitution, Cardiovascular, Respiratory, Neurological, Psychiatric, Hem-Onc, Allergic/Immunologic, Gastrointestinal, Genitourinary, Musculoskeletal, Integumentary, Endocrine and Eyes/Ears/Nose/Throat Exam Surgical H&P Exam: Normal: HEENT, Normal: Heart, Normal: Lungs, Normal: Extremities, Normal: Abdomen, Normal: Skin and Normal: Neurological Plan Diagnosis/Plan: Unchanged I have reviewed the history and physical and performed a pertinent physical examination on my patient. No changes have occurred unless specified.
--- NOTE | 2021-09-25 07:12 | HO.ECTPROC ---
ECT Procedure Note Diagnosis/Treatment Date of Service: 09/25/21 Diagnosis: Bipolar disorder Previous ECT Date: 08/14/21 Interval Clinical Notes: The patient reported some anxiety before the procedure. She asked if we could do bitemperal since she had side effects on the previous ECT. ECT Settings Device: THYMATRON DGx Electrode Placement: Bitemporal Program/Pulse Width: 0.50 Energy Percent: 100 Seizure Duration By EEG (in seconds): 61 (ON THE TRACE BUT NOT REGISTERED ON THE ECT MACHINE) By Motor Observation (in seconds): 30 Medications Administration General Anesthetic: Etomidate (15) Muscle Relaxant: Succinylcholine (100) Ancillary Medications Analgesics: Torodol - Pre ECT Anti-emetics: Zofran - Pre ECT Miscillaneous Medications: Propofol Airway Management Airway Management: Bag Mask Ventilation Treatment Recommendations No Changes Recommended: No change Pt Tolerated Procedure w/o Issue: Yes
--- NOTE | 2021-09-25 07:18 | HO.ANESPROP2 ---
HPI - Anesthesia Eval Consult details Narrative: major depression [facility] Active Problems Active Problems: All Active Problems (Updated 02/11/21 @ 13:42 by Bashir Tadeo MD) Preoperative clearance (Acute) Hypothyroid (Acute) Schizoaffective disorder, bipolar type (Acute) Past Medical History Medical History Depression Elevated cholesterol Hip fracture requiring operative repair Hypothyroid Liver laceration Liver problem Schizoaffective disorder, bipolar type Family History Family History Mother No problems noted. Father No problems noted. Family history of problems with anesthesia: No Surgical History Surgical History H/O rhinoplasty History of hip surgery History of tracheostomy Status post aortic coarctation stent placement History of Problems with Anesthesia: No Social History Social History Are you a primary career and transition teacher to a significant other at home: No Do you presently have visiting nurse or other home services: No Alcohol intake: never Second Hand Smoke Exposure: No Are you DNR?: No Advance Directives: No Advance Directives Information Provided: Yes Recently lost weight without trying: No Meds Allergies Allergy/AdvReac Type Severity Reaction Status Date / Time Sulfa (Sulfonamide Allergy Mild UNKNOWN Verified 03/06/21 06:44 Antibiotics) Sulfa antibotics Allergy Unknown Unknown Uncoded 02/11/21 13:32 Home Medications Medication Instructions Recorded Confirmed Last Taken Type atorvastatin 20 mg tablet 1 tab PO DAILY 09/04/20 02/11/21 Unknown History donepezil 10 mg tablet 1 tab PO DAILY 09/04/20 02/11/21 Unknown History fluvoxamine 25 mg tablet mg PO 09/04/20 02/11/21 Unknown History levothyroxine 112 mcg tablet 1 tab PO DAILY 09/04/20 02/11/21 Unknown History lithium carbonate 150 mg capsule 1 cap PO BID 09/04/20 02/11/21 Unknown History olanzapine 10 mg tablet mg PO 09/04/20 02/11/21 01/16/21 History benztropine 1 mg tablet 1 mg PO BID 02/11/21 02/11/21 Unknown History gabapentin 100 mg capsule 100 mg PO TID 02/11/21 02/11/21 Unknown History lithium carbonate 450 mg 450 mg PO BID 02/11/21 02/11/21 Unknown History tablet,extended release lorazepam 1 mg tablet 1 mg PO QID PRN 02/11/21 02/11/21 Unknown History omeprazole 40 mg capsule,delayed 40 mg PO DAILY 02/11/21 02/11/21 Unknown History release Exam Exam Date and Time: September 25, 2021717 Height,Weight and Vital Signs: Height 5 ft 3 in Weight 81.647 kg Last Vital Signs Temp 98.3 F 09/25/21 06:15 Pulse 94 09/25/21 06:15 Resp 16 09/25/21 06:15 BP 142/72 H 09/25/21 06:15 Pulse Ox 99 09/25/21 06:15 Airway Mallampati Class: II TM Dist: >3cm Neck ROM: Full Loose/Missing/Broken Teeth: No Heart: rrr+[id number] Lungs: cta b/l Assessment and Plan Assessment Anesthesia Assessment: Anesthesia Plan Discussed and Chart Reviewed Final Anesthetic Review Family History of Problems with Anesthesia: No History of Problems with Anesthesia: No NPO: Yes ASA Class: III Final Preanesthetic Review: No Changes in Pt Med Stat, Meds/Allgs Chart Reviewed, Consent Obtained/Reviewed and Anes Risks/Benef Reviewed Patient Risk: Intermediate Procedure Risk: Intermediate Assessment/Block/Sedation in SS: Assess/Block/Sedation-SS Anesthetic Plan Anesthetic Plan: GA and Agree w/ Assess. and Plan Disposition: Standard PACU
== END 2021-09-25 08:48 | disposition home or self-care (01) ==
PROVIDERS: PCP Internal Medicine; Visit Provider Psychiatry & Neurology Psychiatry
PROC: (CPT 90870; principal; 2021-09-25 08:00)
DX: F31.4 Bipolar disorder, current episode depressed, severe, without psychotic features (principal); F41.9 Anxiety disorder, unspecified; Z88.2 Allergy status to sulfonamides
CPT/HCPCS: 90870; J0330; J1885; J2405

== ENCOUNTER 2021-10-22 09:17 | Outpatient (REF) | payer MEDICARE, MEDICAID, SELFPAY ==
[2021-10-22 09:35] LABS: MANUAL DIFF FLAG NO
[2021-10-22 10:24] LABS: Basophils Absolute Auto 0.1 X10*3/uL (0.0-0.2); Basophils Percent Auto 0.7 % (0-2); Eosinophils Absolute Auto 0.2 X10*3/uL (0.0-0.4); Hematocrit 40.1 % (37.0-47.0); Hemoglobin 12.6 g/dl (12.0-16.0); Imm Gran Abs Auto 0.02 X10*3/uL (0.00-0.03); Imm Gran Pct Auto 0.3 % (0.0-0.4); Lymphocytes Absolute Auto 1.3 X10*3/uL (1.2-4.9); Lymphocytes Percent Auto 19.7 % (20-40); Mean Corpuscular HGB Conc 31.4 g/dl (31.0-35.0); Mean Corpuscular Hemoglobin 30.4 pg (27.0-33.0); Mean Corpuscular Volume 96.6 fL (80.0-98.0); Mean Platelet Volume 10.4 fL (9.4-12.3); Monocytes Absolute Auto 0.6 X10*3/uL (0.1-1.2); Monocytes Percent Auto 8.3 % (2-11); Neutrophils Absolute Auto 4.6 x10*3/uL (2.0-8.3); Platelet Count 245 X10*3/uL (160-400); Red Blood Count 4.15 X10*6/uL (4.20-5.50); Red Cell Distribution Width 13.2 % (11.0-16.0); White Blood Count 6.8 X10*3/uL (4.8-10.8)
[2021-10-22 10:50] LABS: Lithium 1.25 mmol/L (0.60-1.20)
== END 2021-10-22 09:18 | disposition home or self-care (01) ==
LOC: HO.LABR 09:17
PROVIDERS: PCP Internal Medicine; Visit Provider Psychiatry & Neurology Psychiatry
DX: Z79.899 Other long term (current) drug therapy (principal)
CPT/HCPCS: 36415; 80178; 85025

== ENCOUNTER 2021-10-25 09:27 | Outpatient (REF) | payer MEDICARE, MEDICAID, SELFPAY ==
[2021-10-25 10:12] LABS: Estimated Average Glucose 103 mg/dL; Hemoglobin A1c % 5.2 %
[2021-10-25 10:42] LABS: Anion Gap 14 (12-20); Blood Urea Nitrogen 15 mg/dL (9-16); Carbon Dioxide 25 mmol/L (22-29); Chloride 108 mmol/L (96-108); Estimated Glomerular Filt Rate > 60; Glucose Fasting 97 mg/dL (60-99); Potassium 4.6 mmol/L (3.3-5.1); Sodium 142 mmol/L (135-145)
[2021-10-25 10:43] LABS: Lithium 0.94 mmol/L (0.60-1.20)
== END 2021-10-25 09:28 | disposition home or self-care (01) ==
LOC: HO.LAB 09:27
PROVIDERS: PCP Internal Medicine; Visit Provider Psychiatry & Neurology Psychiatry
DX: F31.11 Bipolar disorder, current episode manic without psychotic features, mild (principal)
CPT/HCPCS: 36415; 80048; 80178; 82947; 83036

== ENCOUNTER 2021-11-11 06:04 | Day surgery (SDC) | payer MEDICARE, MEDICAID, SELFPAY ==
[2021-11-11] VITALS (7 sets, daily range): BP systolic 110–160; BP diastolic 70–78; PULSE 60–91; RESP 15–19; TEMP 36.4–36.7; O2SAT 96–100; BMI 31.8
[2021-11-11 06:41] LABS: COVID-19 Test Negative (Negative)
--- NOTE | 2021-11-11 06:53 | P.CONAN_ITS ---
[facility] Active Problems Active Problems: All Active Problems (Updated 10/25/21 @ 10:58 by ALCIRA Ramírez) Left foot pain (Acute) Preoperative clearance (Acute) Hypothyroid (Acute) Schizoaffective disorder, bipolar type (Acute) Past Medical History Medical History Depression Elevated cholesterol Hip fracture requiring operative repair Hypothyroid Liver laceration Liver problem Schizoaffective disorder, bipolar type Family History Family History (Updated 10/25/21 @ 10:21 by VIRI Reyez) Mother No problems noted. Father No problems noted. Family history of problems with anesthesia: No Surgical History Surgical History H/O rhinoplasty History of hip surgery History of tracheostomy Status post aortic coarctation stent placement History of Problems with Anesthesia: No Social History Social History (Updated 10/25/21 @ 10:22 by VIRI Reyez) Housing: House Are you a primary care professionals to a significant other at home: No Do you presently have visiting nurse or other home services: No Alcohol intake: never Patient Tobacco Use Status: Former Tobacco user (2.5 years) e-Cigarette/Vaping Use: Never Used Second Hand Smoke Exposure: No Advance Directives: No Advance Directives Information Provided: Yes service: No Current occupational status: disabled Cognitive needs: No Hearing needs: No Vision needs: Yes (Glasses) Meds Allergies Allergy/AdvReac Type Severity Reaction Status Date / Time Sulfa (Sulfonamide Allergy Mild UNKNOWN Verified 10/25/21 10:18 Antibiotics) Sulfa antibotics Allergy Unknown Unknown Uncoded 10/25/21 10:18 Home Medications Medication Instructions Recorded Confirmed Last Taken Type atorvastatin 20 mg tablet 1 tab PO DAILY 09/04/20 10/25/21 Unknown History donepezil 10 mg tablet 1 tab PO DAILY 09/04/20 10/25/21 Unknown History fluvoxamine 25 mg tablet mg PO 09/04/20 10/25/21 Unknown History levothyroxine 112 mcg tablet 1 tab PO DAILY 09/04/20 10/25/21 Unknown History lithium carbonate 150 mg capsule 1 cap PO BID 09/04/20 10/25/21 Unknown History olanzapine 10 mg tablet mg PO 09/04/20 10/25/21 01/16/21 History benztropine 1 mg tablet 1 mg PO BID 02/11/21 10/25/21 Unknown History gabapentin 100 mg capsule 100 mg PO TID 02/11/21 10/25/21 Unknown History lithium carbonate 450 mg 450 mg PO BID 02/11/21 10/25/21 Unknown History tablet,extended release lorazepam 1 mg tablet 1 mg PO QID PRN 02/11/21 10/25/21 Unknown History omeprazole 40 mg capsule,delayed 40 mg PO DAILY 02/11/21 10/25/21 Unknown History release Exam Exam Date and Time: November 11, 2021 0607 Pertinent Lab Results Pertinent Lab Results: Laboratory Tests 11/11/21 06:14 COVID-19 ([facility]) Negative COVID-19 Clin Com See Note Airway Mallampati Class: II TM Dist: >3cm Neck ROM: Full Heart: rrr Lungs: cta Assessment and Plan Assessment Anesthesia Assessment: Anesthesia Plan Discussed and Chart Reviewed Final Anesthetic Review Family History of Problems with Anesthesia: No History of Problems with Anesthesia: No NPO: Yes ASA Class: III Final Preanesthetic Review: No Changes in Pt Med Stat, Meds/Allgs Chart Reviewed and Consent Obtained/Reviewed Patient Risk: Intermediate Procedure Risk: Intermediate Anesthetic Plan Anesthetic Plan: GA Disposition: Standard PACU
--- NOTE | 2021-11-11 07:17 | MHC.SHP ---
Pre-Procedural Eval Section A Date of Service: 11/11/21 Section B Chief Complaint: Severe Depression Details of Present Illness: hx recurrent depressionn Relevant Family History (Specify if Yes): No Relevant Social History: None Present Medications: see Short Stay Collaborative assessment History of Previous Operations: Relevant previous surgery/procedure and date(s) Allergies: Allergies Allergy/AdvReac Type Severity Reaction Status Date / Time Sulfa (Sulfonamide Allergy Mild UNKNOWN Verified 10/25/21 10:18 Antibiotics) Sulfa antibotics Allergy Unknown Unknown Uncoded 10/25/21 10:18 Review of Systems Sugical H&P ROS: Negative: Constitution, Cardiovascular and Respiratory Exam Surgical H&P Exam: Normal: Heart and Normal: Lungs Plan Diagnosis/Plan: Unchanged I have reviewed the history and physical and performed a pertinent physical examination on my patient. No changes have occurred unless specified.
--- NOTE | 2021-11-11 07:36 | HO.ECTPROC ---
ECT Procedure Note Diagnosis/Treatment Date of Service: 11/11/21 Diagnosis: Schizoaffective Disorder Previous ECT Date: 09/25/21 Treatment: Maintenance Interval Clinical Notes: pt with PI and periods of dysphoria ECT Settings Device: THYMATRON DGx Electrode Placement: Bitemporal Program/Pulse Width: 0.50 Energy Percent: 100 Seizure Duration By EEG (in seconds): 73 Medications Administration General Anesthetic: Etomidate Muscle Relaxant: Succinylcholine Ancillary Medications Analgesics: Torodol - Pre ECT Anti-emetics: Zofran - Pre ECT Miscillaneous Medications: Propofol Airway Management Airway Management: Bag Mask Ventilation Treatment Recommendations No Changes Recommended: No change Pt Tolerated Procedure w/o Issue: Yes
[2021-11-11 08:06] LABS: MANUAL DIFF FLAG NO
[2021-11-11 08:15] LABS: Basophils Percent Auto 0.3 % (0-2); Eosinophils Percent Auto 0.3 % (0-4); Hematocrit 38.4 % (37.0-47.0); Hemoglobin 12.4 g/dl (12.0-16.0); Imm Gran Abs Auto 0.02 X10*3/uL (0.00-0.03); Imm Gran Pct Auto 0.3 % (0.0-0.4); Lymphocytes Absolute Auto 0.7 X10*3/uL (1.2-4.9); Lymphocytes Percent Auto 10.9 % (20-40); Mean Corpuscular HGB Conc 32.3 g/dl (31.0-35.0); Mean Corpuscular Hemoglobin 30.8 pg (27.0-33.0); Mean Corpuscular Volume 95.3 fL (80.0-98.0); Mean Platelet Volume 10.3 fL (9.4-12.3); Monocytes Absolute Auto 0.3 X10*3/uL (0.1-1.2); Monocytes Percent Auto 4.6 % (2-11); Neutrophils Absolute Auto 5.3 x10*3/uL (2.0-8.3); Neutrophils Percent Auto 83.6 % (45-73); Platelet Count 209 X10*3/uL (160-400); Red Blood Count 4.03 X10*6/uL (4.20-5.50); White Blood Count 6.4 X10*3/uL (4.8-10.8)
== END 2021-11-11 08:40 | disposition home or self-care (01) ==
PROVIDERS: PCP Internal Medicine; Visit Provider Psychiatry & Neurology Psychiatry
PROC: (CPT 90870; principal; 2021-11-11 08:00)
DX: F25.0 Schizoaffective disorder, bipolar type (principal); M79.672 Pain in left foot; Z79.899 Other long term (current) drug therapy; Z88.2 Allergy status to sulfonamides; Z87.891 Personal history of nicotine dependence; Z20.822 Contact with and (suspected) exposure to COVID-19
CPT/HCPCS: 36415; 85025; 87635; 90870; J0330; J1885; J2405

== ENCOUNTER 2021-11-21 14:09 | Outpatient (REF) | payer MEDICARE, MEDICAID, SELFPAY ==
--- NOTE | ~2021-11-21 | MM_ITS ---
EXAMINATION: MM SCREENING DIGITAL BREAST TOMOSYNTHESIS, BILATERAL CLINICAL INFORMATION: Screening. Asymptomatic. The lifetime risk of breast cancer based on the Tyrer-Cuzick Model is 10%. COMPARISON: Mammography: 11/05/2020, 11/02/2019, 10/26/2018 (baseline). TECHNIQUE: Digital breast tomosynthesis is performed in both the craniocaudal and mediolateral oblique views along with computer-aided detection (CAD). Synthesized 2D images are generated from the tomosynthesis. FINDINGS: There are scattered areas of fibroglandular density (ACR BI-RADS breast composition Category b). There are no significant masses, abnormal calcifications, or other abnormalities. There is an incidental low left axillary tail node on the left MLO view, beyond field of view on prior exams. MM/MM tomosynthesis screening BI IMPRESSION: No mammographic evidence of malignancy. ASSESSMENT: BI-RADS 2: Benign RECOMMENDATION: Routine annual mammography screening. This patient's information was entered into a reminder system with a target due date for their next mammogram.
== END 2021-11-21 14:10 | disposition home or self-care (01) ==
LOC: HO.MAMMO 14:09
PROVIDERS: Visit Provider Internal Medicine
DX: Z12.31 Encounter for screening mammogram for malignant neoplasm of breast (principal)
CPT/HCPCS: 77063; 77067

== ENCOUNTER 2021-12-02 13:07 | Emergency (ER) | payer MEDICARE, MEDICAID, SELFPAY | END 2021-12-02 14:41 | disposition left against medical advice (07) | PROVIDERS: Emergency Provider Emergency Medicine; PCP Internal Medicine | DX: S90.122A Contusion of left lesser toe(s) without damage to nail, initial encounter (principal); X58.XXXA Exposure to other specified factors, initial encounter; Y93.9 Activity, unspecified; Y92.9 Unspecified place or not applicable; Y99.9 Unspecified external cause status ==

== ENCOUNTER 2021-12-12 09:25 | Outpatient (REF) | payer MEDICARE, MEDICAID, SELFPAY ==
[2021-12-12 09:55] LABS: MANUAL DIFF FLAG NO
[2021-12-12 10:07] LABS: Basophils Absolute Auto 0.1 X10*3/uL (0.0-0.2); Basophils Percent Auto 0.6 % (0-2); Eosinophils Absolute Auto 0.1 X10*3/uL (0.0-0.4); Eosinophils Percent Auto 1.1 % (0-4); Hematocrit 39.5 % (37.0-47.0); Hemoglobin 12.9 g/dl (12.0-16.0); Imm Gran Abs Auto 0.02 X10*3/uL (0.00-0.03); Imm Gran Pct Auto 0.2 % (0.0-0.4); Lymphocytes Absolute Auto 1.3 X10*3/uL (1.2-4.9); Lymphocytes Percent Auto 14.8 % (20-40); Mean Corpuscular HGB Conc 32.7 g/dl (31.0-35.0); Mean Corpuscular Hemoglobin 31.3 pg (27.0-33.0); Mean Corpuscular Volume 95.9 fL (80.0-98.0); Mean Platelet Volume 9.6 fL (9.4-12.3); Monocytes Absolute Auto 0.7 X10*3/uL (0.1-1.2); Monocytes Percent Auto 7.6 % (2-11); Neutrophils Absolute Auto 6.8 x10*3/uL (2.0-8.3); Neutrophils Percent Auto 75.7 % (45-73); Platelet Count 251 X10*3/uL (160-400); Red Blood Count 4.12 X10*6/uL (4.20-5.50); Red Cell Distribution Width 13.1 % (11.0-16.0)
[2021-12-12 10:20] LABS: Lithium 0.58 mmol/L (0.60-1.20)
== END 2021-12-12 09:26 | disposition home or self-care (01) ==
LOC: HO.LABR 09:25
PROVIDERS: PCP Internal Medicine; Visit Provider Psychiatry & Neurology Psychiatry
DX: Z79.899 Other long term (current) drug therapy (principal)
CPT/HCPCS: 36415; 80178; 85025

== ENCOUNTER 2021-12-20 06:01 | Day surgery (SDC) | payer MEDICARE, MEDICAID, SELFPAY ==
[2021-12-20] VITALS (7 sets, daily range): BP systolic 120–152; BP diastolic 59–80; PULSE 63–99; RESP 16–18; TEMP 36.9–37.1; O2SAT 97–100; BMI 32.4
[2021-12-20 06:30] LABS: COVID-19 Test Negative (Negative)
--- NOTE | 2021-12-20 06:57 | HO.ANESPROP2 ---
[facility] Active Problems Active Problems: All Active Problems (Updated 11/26/21 @ 15:30 by Anoop Tavares PA-C) Left foot pain (Acute) Tinea pedis (Acute) Left foot pain (Acute) Preoperative clearance (Acute) Hypothyroid (Acute) Schizoaffective disorder, bipolar type (Acute) Past Medical History Medical History Depression Elevated cholesterol Hip fracture requiring operative repair Hypothyroid Liver laceration Liver problem Schizoaffective disorder, bipolar type Family History Family History Mother No problems noted. Father No problems noted. Family history of problems with anesthesia: No Surgical History Surgical History H/O rhinoplasty History of hip surgery History of tracheostomy Status post aortic coarctation stent placement History of Problems with Anesthesia: No Social History Social History Housing: House Are you a primary critical care unit manager to a significant other at home: No Do you presently have visiting nurse or other home services: No Alcohol intake: never Patient Tobacco Use Status: Former Tobacco user e-Cigarette/Vaping Use: Never Used Second Hand Smoke Exposure: No Are you DNR?: No Advance Directives: No Advance Directives Information Provided: Yes service: No Current occupational status: disabled Cognitive needs: No Hearing needs: No Vision needs: Yes (Glasses) Meds Allergies Allergy/AdvReac Type Severity Reaction Status Date / Time Sulfa (Sulfonamide Allergy Mild UNKNOWN Verified 11/26/21 15:24 Antibiotics) Sulfa antibotics Allergy Unknown Unknown Uncoded 11/26/21 15:24 Home Medications Medication Instructions Recorded Confirmed Last Taken Type atorvastatin 20 mg tablet 1 tab PO DAILY 09/04/20 11/26/21 Unknown History donepezil 10 mg tablet 1 tab PO DAILY 09/04/20 11/26/21 Unknown History fluvoxamine 25 mg tablet mg PO 09/04/20 11/26/21 Unknown History levothyroxine 112 mcg tablet 1 tab PO DAILY 09/04/20 11/26/21 Unknown History lithium carbonate 150 mg capsule 1 cap PO BID 09/04/20 11/26/21 Unknown History olanzapine 10 mg tablet mg PO 09/04/20 11/26/21 01/16/21 History benztropine 1 mg tablet 1 mg PO BID 02/11/21 11/26/21 Unknown History gabapentin 100 mg capsule 100 mg PO TID 02/11/21 11/26/21 Unknown History lithium carbonate 450 mg 450 mg PO BID 02/11/21 11/26/21 Unknown History tablet,extended release lorazepam 1 mg tablet 1 mg PO QID PRN 02/11/21 11/26/21 Unknown History omeprazole 40 mg capsule,delayed 40 mg PO DAILY 02/11/21 11/26/21 Unknown History release Exam Exam Date and Time: December 20, 2021 0657 Height,Weight and Vital Signs: Height 5 ft 3 in Weight 83.007 kg Last Vital Signs Temp 98.5 F 12/20/21 06:51 Pulse 99 12/20/21 06:51 Resp 18 12/20/21 06:51 BP 152/80 H 12/20/21 06:51 Pulse Ox 97 12/20/21 06:51 Pertinent Lab Results Pertinent Lab Results: Laboratory Tests 12/20/21 06:05 COVID-19 ([facility]) Negative COVID-19 Clin Com See Note Airway Mallampati Class: II TM Dist: >3cm Neck ROM: Full Heart: rrr Lungs: cta Assessment and Plan Assessment Anesthesia Assessment: Anesthesia Plan Discussed and Chart Reviewed Final Anesthetic Review Family History of Problems with Anesthesia: No History of Problems with Anesthesia: No NPO: Yes ASA Class: III Final Preanesthetic Review: No Changes in Pt Med Stat, Meds/Allgs Chart Reviewed and Consent Obtained/Reviewed Patient Risk: Intermediate Procedure Risk: Intermediate Anesthetic Plan Anesthetic Plan: GA Disposition: Standard PACU
--- NOTE | 2021-12-20 07:15 | MHC.SHP ---
Pre-Procedural Eval Section A Date of Service: 12/20/21 The patient is an INPATIENT: No Section B Chief Complaint: depression Relevant Social History: None Present Medications: see Short Stay Collaborative assessment Medical History: Significant History Allergies: Allergies Allergy/AdvReac Type Severity Reaction Status Date / Time Sulfa (Sulfonamide Allergy Mild UNKNOWN Verified 11/26/21 15:24 Antibiotics) Sulfa antibotics Allergy Unknown Unknown Uncoded 11/26/21 15:24 Review of Systems Sugical H&P ROS: Negative: Respiratory, Neurological (working attention) and Endocrine and Yes, Specify: Cardiovascular (? palp) Exam Surgical H&P Exam: Normal: Heart and Normal: Lungs Plan Diagnosis/Plan: Unchanged I have reviewed the history and physical and performed a pertinent physical examination on my patient. No changes have occurred unless specified.
--- NOTE | 2021-12-20 07:17 | HO.ECTPROC ---
ECT Procedure Note Diagnosis/Treatment Date of Service: 12/20/21 ECT Settings Device: THYMATRON DGx
--- NOTE | 2021-12-20 14:48 | HO.ECTPROC ---
ECT Procedure Note Diagnosis/Treatment Date of Service: 12/20/21 Diagnosis: Schizoaffective Disorder Treatment: Maintenance Interval Clinical Notes: Pt with ongoing paranoia dysphora continues to feel helped by ECT ECT Settings Device: THYMATRON DGx Electrode Placement: Bitemporal Program/Pulse Width: 0.50 Energy Percent: 100 Seizure Duration By EEG (in seconds): 99 Medications Administration General Anesthetic: Etomidate (15) Muscle Relaxant: Succinylcholine (100) Ancillary Medications Analgesics: Torodol - Pre ECT (15) Miscillaneous Medications: Propofol (30) Airway Management Airway Management: Bag Mask Ventilation Treatment Recommendations Electrode Placement: Bifrontal (consider bifrontal) Energy Percent: 50 Pt Tolerated Procedure w/o Issue: Yes
== END 2021-12-20 08:33 | disposition home or self-care (01) ==
PROVIDERS: PCP Internal Medicine; Visit Provider Psychiatry & Neurology Psychiatry
PROC: (CPT 90870; principal; 2021-12-20 07:30)
DX: F32.9 Major depressive disorder, single episode, unspecified (principal); F25.0 Schizoaffective disorder, bipolar type; Z20.822 Contact with and (suspected) exposure to COVID-19; Z87.891 Personal history of nicotine dependence
CPT/HCPCS: 87635; 90870; J0330; J1885; J2405

== ENCOUNTER 2021-12-23 10:27 | Outpatient (REF) | payer MEDICARE, MEDICAID, SELFPAY ==
[2021-12-23 10:43] LABS: MANUAL DIFF FLAG NO
[2021-12-23 10:51] LABS: Basophils Percent Auto 0.4 % (0-2); Eosinophils Absolute Auto 0.1 X10*3/uL (0.0-0.4); Hemoglobin 12.8 g/dl (12.0-16.0); Imm Gran Abs Auto 0.02 X10*3/uL (0.00-0.03); Imm Gran Pct Auto 0.2 % (0.0-0.4); Lymphocytes Absolute Auto 1.2 X10*3/uL (1.2-4.9); Mean Corpuscular Hemoglobin 31.2 pg (27.0-33.0); Mean Corpuscular Volume 97.6 fL (80.0-98.0); Monocytes Absolute Auto 0.6 X10*3/uL (0.1-1.2); Monocytes Percent Auto 6.9 % (2-11); Neutrophils Absolute Auto 6.3 x10*3/uL (2.0-8.3); Neutrophils Percent Auto 76.5 % (45-73); Platelet Count 225 X10*3/uL (160-400); Red Cell Distribution Width 12.9 % (11.0-16.0); White Blood Count 8.2 X10*3/uL (4.8-10.8)
== END 2021-12-23 10:28 | disposition home or self-care (01) ==
LOC: HO.LABR 10:27
PROVIDERS: PCP Internal Medicine; Visit Provider Psychiatry & Neurology Psychiatry
DX: Z79.899 Other long term (current) drug therapy (principal)
CPT/HCPCS: 36415; 85025

== ENCOUNTER 2022-01-29 05:58 | Day surgery (SDC) | payer MEDICARE, MEDICAID, SELFPAY ==
[2022-01-29] VITALS (7 sets, daily range): BP systolic 105–167; BP diastolic 57–88; PULSE 49–103; RESP 12–20; TEMP 36.6–37.2; O2SAT 98–100; BMI 30.9
[2022-01-29 06:46] LABS: COVID-19 Test Negative (Negative); IDNOW Serial# 16C4AD1C
--- NOTE | 2022-01-29 06:54 | P.CONAN_ITS ---
[facility] Active Problems Active Problems: All Active Problems (Updated 11/26/21 @ 15:30 by Anoop Tavares PA-C) Left foot pain (Acute) Tinea pedis (Acute) Left foot pain (Acute) Preoperative clearance (Acute) Hypothyroid (Acute) Schizoaffective disorder, bipolar type (Acute) Past Medical History Medical History Depression Elevated cholesterol Hip fracture requiring operative repair Hypothyroid Liver laceration Liver problem Schizoaffective disorder, bipolar type Family History Family History Mother No problems noted. Father No problems noted. Family history of problems with anesthesia: No Surgical History Surgical History H/O rhinoplasty History of hip surgery History of tracheostomy Status post aortic coarctation stent placement History of Problems with Anesthesia: No Social History Social History Housing: House Are you a primary congregational care pastor to a significant other at home: No Do you presently have visiting nurse or other home services: No Alcohol intake: never Patient Tobacco Use Status: Former Tobacco user e-Cigarette/Vaping Use: Never Used Second Hand Smoke Exposure: No Advance Directives: No Advance Directives Information Provided: Yes service: No Current occupational status: disabled Cognitive needs: No Hearing needs: No Vision needs: Yes (Glasses) Meds Allergies Allergy/AdvReac Type Severity Reaction Status Date / Time Sulfa (Sulfonamide Allergy Mild UNKNOWN Verified 11/26/21 15:24 Antibiotics) Sulfa antibotics Allergy Unknown Unknown Uncoded 11/26/21 15:24 Home Medications Medication Instructions Recorded Confirmed Last Taken Type atorvastatin 20 mg tablet 1 tab PO DAILY 09/04/20 11/26/21 Unknown History donepezil 10 mg tablet 1 tab PO DAILY 09/04/20 11/26/21 Unknown History fluvoxamine 25 mg tablet mg PO 09/04/20 11/26/21 Unknown History levothyroxine 112 mcg tablet 1 tab PO DAILY 09/04/20 11/26/21 Unknown History lithium carbonate 150 mg capsule 1 cap PO BID 09/04/20 11/26/21 Unknown History olanzapine 10 mg tablet mg PO 09/04/20 11/26/21 01/16/21 History benztropine 1 mg tablet 1 mg PO BID 02/11/21 11/26/21 Unknown History gabapentin 100 mg capsule 100 mg PO TID 02/11/21 11/26/21 Unknown History lithium carbonate 450 mg 450 mg PO BID 02/11/21 11/26/21 Unknown History tablet,extended release lorazepam 1 mg tablet 1 mg PO QID PRN 02/11/21 11/26/21 Unknown History omeprazole 40 mg capsule,delayed 40 mg PO DAILY 02/11/21 11/26/21 Unknown History release Exam Exam Date and Time: January 29, 2022 0654 Height,Weight and Vital Signs: Height 5 ft 3 in Weight 79.379 kg Last Vital Signs Temp 97.8 F 01/29/22 06:50 Pulse 103 H 01/29/22 06:50 Resp 20 01/29/22 06:50 BP 154/88 H 01/29/22 06:50 Pulse Ox 98 01/29/22 06:50 Pertinent Lab Results Pertinent Lab Results: Laboratory Tests 01/29/22 06:00 COVID-19 ([facility]) Negative COVID-19 Clin Com See Note Airway Mallampati Class: II TM Dist: >3cm Neck ROM: Full Heart: rrr Lungs: cta Assessment and Plan Assessment Anesthesia Assessment: Anesthesia Plan Discussed and Chart Reviewed Final Anesthetic Review Family History of Problems with Anesthesia: No History of Problems with Anesthesia: No ASA Class: III Final Preanesthetic Review: No Changes in Pt Med Stat, Meds/Allgs Chart Reviewed and Consent Obtained/Reviewed Patient Risk: Intermediate Procedure Risk: Intermediate Anesthetic Plan Anesthetic Plan: GA Disposition: Standard PACU
--- NOTE | 2022-01-29 07:05 | MHC.SHP ---
Pre-Procedural Eval Section A Date of Service: 01/29/22 The patient is an INPATIENT: No Changes since office visit: Yes Changes in Medication and Yes Patient answered all questions; No Cold of Flu in the past 2 weeks and No New Medical Problems The History & Physical has been completed within 30 days and I have reviewed it.: No Section B Chief Complaint: depression Details of Present Illness: recurrent depression paranoia Relevant Family History (Specify if Yes): No Relevant Social History: None Present Medications: see Short Stay Collaborative assessment Medical History: No relevant PMH History of Previous Operations: No relevant previous surgery (hx ect ) Allergies: Allergies Allergy/AdvReac Type Severity Reaction Status Date / Time Sulfa (Sulfonamide Allergy Mild UNKNOWN Verified 11/26/21 15:24 Antibiotics) Sulfa antibotics Allergy Unknown Unknown Uncoded 11/26/21 15:24 Review of Systems Sugical H&P ROS: Negative: Cardiovascular, Respiratory, Neurological and Gastrointestinal and Yes, Specify: Psychiatric (paranoia) Exam Surgical H&P Exam: Normal: Heart, Normal: Lungs and Normal: Neurological Plan Diagnosis/Plan: Unchanged I have reviewed the history and physical and performed a pertinent physical examination on my patient. No changes have occurred unless specified.
--- NOTE | 2022-01-29 07:08 | HO.ECTPROC ---
ECT Procedure Note Diagnosis/Treatment Date of Service: 01/29/22 Diagnosis: Schizoaffective Disorder Previous ECT Date: 12/20/21 Treatment: Maintenance Interval Clinical Notes: pt has periods of paranoia not overly depressed ECT Settings Device: THYMATRON DGx Electrode Placement: Rt temporal/ Lt frontal Program/Pulse Width: 0.25 Energy Percent: 100 Seizure Duration By EEG (in seconds): 64 Medications Administration General Anesthetic: Etomidate (15) Muscle Relaxant: Succinylcholine (100) Ancillary Medications Analgesics: Torodol - Pre ECT Anti-emetics: Zofran - Pre ECT Miscillaneous Medications: Propofol (30) Airway Management Airway Management: Bag Mask Ventilation Treatment Recommendations Notes: next tx 02/21/22 Pt Tolerated Procedure w/o Issue: Yes
== END 2022-01-29 08:18 | disposition home or self-care (01) ==
PROVIDERS: PCP Internal Medicine; Visit Provider Psychiatry & Neurology Psychiatry
PROC: (CPT 90870; principal; 2022-01-29 08:00)
DX: F25.0 Schizoaffective disorder, bipolar type (principal); E03.9 Hypothyroidism, unspecified; Z79.899 Other long term (current) drug therapy; Z88.2 Allergy status to sulfonamides; Z20.822 Contact with and (suspected) exposure to COVID-19
CPT/HCPCS: 87635; 90870; J0330; J1885; J2405

== ENCOUNTER 2022-01-31 06:00 | Day surgery (SDC) | payer MEDICARE, MEDICAID, SELFPAY ==
[2022-01-31] VITALS (7 sets, daily range): BP systolic 110–161; BP diastolic 59–75; PULSE 57–92; RESP 12–18; TEMP 36.6–37; O2SAT 95–100; BMI 32.8
[2022-01-31 06:35] LABS: COVID-19 Test Negative (Negative); IDNOW Serial# 16C4AD1C
--- NOTE | 2022-01-31 06:44 | HO.ANESPROP2 ---
[facility] Active Problems Active Problems: All Active Problems (Updated 11/26/21 @ 15:30 by Anoop Tavares PA-C) Left foot pain (Acute) Tinea pedis (Acute) Left foot pain (Acute) Preoperative clearance (Acute) Hypothyroid (Acute) Schizoaffective disorder, bipolar type (Acute) Past Medical History Medical History Depression Elevated cholesterol Hip fracture requiring operative repair Hypothyroid Liver laceration Liver problem Schizoaffective disorder, bipolar type Family History Family History Mother No problems noted. Father No problems noted. Family history of problems with anesthesia: No Surgical History Surgical History H/O rhinoplasty History of hip surgery History of tracheostomy Status post aortic coarctation stent placement History of Problems with Anesthesia: No Social History Social History Housing: House Are you a primary managed care nurse to a significant other at home: No Do you presently have visiting nurse or other home services: No Alcohol intake: never Patient Tobacco Use Status: Former Tobacco user e-Cigarette/Vaping Use: Never Used Second Hand Smoke Exposure: No Advance Directives: No Advance Directives Information Provided: Yes service: No Current occupational status: disabled Cognitive needs: No Hearing needs: No Vision needs: Yes (Glasses) Meds Allergies Allergy/AdvReac Type Severity Reaction Status Date / Time Sulfa (Sulfonamide Allergy Mild UNKNOWN Verified 11/26/21 15:24 Antibiotics) Sulfa antibotics Allergy Unknown Unknown Uncoded 11/26/21 15:24 Active Medications: Current Medications Lactated Ringer's (Lr) 1,000 mls @ 50 mls/hr IVCONT .Q20H [facility] Home Medications Medication Instructions Recorded Confirmed Last Taken Type atorvastatin 20 mg tablet 1 tab PO DAILY 09/04/20 11/26/21 Unknown History donepezil 10 mg tablet 1 tab PO DAILY 09/04/20 11/26/21 Unknown History fluvoxamine 25 mg tablet mg PO 09/04/20 11/26/21 Unknown History levothyroxine 112 mcg tablet 1 tab PO DAILY 09/04/20 11/26/21 Unknown History lithium carbonate 150 mg capsule 1 cap PO BID 09/04/20 11/26/21 Unknown History olanzapine 10 mg tablet mg PO 09/04/20 11/26/21 01/16/21 History benztropine 1 mg tablet 1 mg PO BID 02/11/21 11/26/21 Unknown History gabapentin 100 mg capsule 100 mg PO TID 02/11/21 11/26/21 Unknown History lithium carbonate 450 mg 450 mg PO BID 02/11/21 11/26/21 Unknown History tablet,extended release lorazepam 1 mg tablet 1 mg PO QID PRN 02/11/21 11/26/21 Unknown History omeprazole 40 mg capsule,delayed 40 mg PO DAILY 02/11/21 11/26/21 Unknown History release Exam Exam Date and Time: January 31, 2022 0644 Pertinent Lab Results Pertinent Lab Results: Laboratory Tests 01/31/22 06:10 COVID-19 ([facility]) Negative COVID-19 Clin Com See Note Airway Mallampati Class: II TM Dist: >3cm Neck ROM: Full Heart: rrr Lungs: cta Assessment and Plan Assessment Anesthesia Assessment: Anesthesia Plan Discussed and Chart Reviewed Final Anesthetic Review Family History of Problems with Anesthesia: No History of Problems with Anesthesia: No NPO: Yes ASA Class: III Final Preanesthetic Review: No Changes in Pt Med Stat, Meds/Allgs Chart Reviewed and Consent Obtained/Reviewed Patient Risk: Intermediate Procedure Risk: Intermediate Anesthetic Plan Anesthetic Plan: GA Disposition: Standard PACU
--- NOTE | 2022-01-31 07:11 | MHC.SHP ---
Pre-Procedural Eval Section A Date of Service: 01/31/22 Changes since office visit: Yes Patient answered all questions; No Cold of Flu in the past 2 weeks, No New Medical Problems and No Changes in Medication The History & Physical has been completed within 30 days and I have reviewed it.: Yes Section B Chief Complaint: depression Allergies: Allergies Allergy/AdvReac Type Severity Reaction Status Date / Time Sulfa (Sulfonamide Allergy Mild UNKNOWN Verified 11/26/21 15:24 Antibiotics) Sulfa antibotics Allergy Unknown Unknown Uncoded 11/26/21 15:24 Plan I have reviewed the history and physical and performed a pertinent physical examination on my patient. No changes have occurred unless specified.
--- NOTE | 2022-01-31 07:25 | HO.ECTPROC ---
ECT Procedure Note Diagnosis/Treatment Date of Service: 01/31/22 Diagnosis: Schizoaffective Disorder Previous ECT Date: 01/29/22 Treatment: Maintenance Interval Clinical Notes: pt feels better after ect less depressed more agreeable to cont tx ECT Settings Device: THYMATRON DGx Electrode Placement: Rt temporal/ Lt frontal Program/Pulse Width: 0.25 Energy Percent: 100 Seizure Duration By EEG (in seconds): 55 Medications Administration General Anesthetic: Etomidate (15) Muscle Relaxant: Succinylcholine (100) Ancillary Medications Analgesics: Torodol - Pre ECT Anti-emetics: Zofran - Pre ECT Miscillaneous Medications: Propofol (30 mg) Airway Management Airway Management: Bag Mask Ventilation Treatment Recommendations No Changes Recommended: No change Pt Tolerated Procedure w/o Issue: Yes
== END 2022-01-31 08:20 | disposition home or self-care (01) ==
PROVIDERS: PCP Internal Medicine; Visit Provider Psychiatry & Neurology Psychiatry
PROC: (CPT 90870; principal; 2022-01-31 08:00)
DX: F25.0 Schizoaffective disorder, bipolar type (principal); E78.00 Pure hypercholesterolemia, unspecified; E03.9 Hypothyroidism, unspecified; K76.9 Liver disease, unspecified; M79.672 Pain in left foot; Q25.1 Coarctation of aorta; Z95.5 Presence of coronary angioplasty implant and graft; Z79.899 Other long term (current) drug therapy; Z88.2 Allergy status to sulfonamides; Z98.890 Other specified postprocedural states; Z87.891 Personal history of nicotine dependence; Z20.822 Contact with and (suspected) exposure to COVID-19
CPT/HCPCS: 87635; 90870; J0330; J1885; J2405

== ENCOUNTER 2022-02-21 06:05 | Day surgery (SDC) | payer MEDICARE, MEDICAID, SELFPAY ==
[2022-02-21] VITALS (7 sets, daily range): BP systolic 109–159; BP diastolic 48–81; PULSE 62–88; RESP 16–21; TEMP 36.6–37.1; O2SAT 96–99; BMI 31.6
[2022-02-21 06:37] LABS: COVID-19 Test Negative (Negative)
--- NOTE | 2022-02-21 06:46 | P.CONAN_ITS ---
[facility] Active Problems Active Problems: All Active Problems (Updated 02/12/22 @ 11:10 by Bashir Tadeo MD) Hypercholesterolemia (Acute) Left foot pain (Acute) Tinea pedis (Acute) Left foot pain (Acute) Preoperative clearance (Acute) Hypothyroid (Acute) Schizoaffective disorder, bipolar type (Acute) Past Medical History Medical History (Updated 02/12/22 @ 11:10 by Bashir Tadeo MD) Depression Elevated cholesterol Hip fracture requiring operative repair Hypercholesterolemia Hypothyroid Liver laceration Liver problem Schizoaffective disorder, bipolar type Family History Family History Mother No problems noted. Father No problems noted. Family history of problems with anesthesia: No Surgical History Surgical History H/O rhinoplasty History of hip surgery History of tracheostomy Status post aortic coarctation stent placement History of Problems with Anesthesia: No Social History Social History Housing: House Are you a primary day care aide to a significant other at home: No Do you presently have visiting nurse or other home services: No Alcohol intake: never Patient Tobacco Use Status: Former Tobacco user e-Cigarette/Vaping Use: Never Used Second Hand Smoke Exposure: No Advance Directives: No Advance Directives Information Provided: Yes service: No Current occupational status: disabled Cognitive needs: No Hearing needs: No Vision needs: Yes (Glasses) Meds Allergies Allergy/AdvReac Type Severity Reaction Status Date / Time Sulfa (Sulfonamide Allergy Mild UNKNOWN Verified 02/12/22 10:09 Antibiotics) Sulfa antibotics Allergy Unknown Unknown Uncoded 11/26/21 15:24 Home Medications Medication Instructions Recorded Confirmed Last Taken Type atorvastatin 20 mg tablet 1 tab PO DAILY 09/04/20 11/26/21 Unknown History donepezil 10 mg tablet 1 tab PO DAILY 09/04/20 11/26/21 Unknown History fluvoxamine 25 mg tablet mg PO 09/04/20 11/26/21 Unknown History levothyroxine 112 mcg tablet 1 tab PO DAILY 09/04/20 11/26/21 Unknown History lithium carbonate 150 mg capsule 1 cap PO BID 09/04/20 11/26/21 Unknown History olanzapine 10 mg tablet mg PO 09/04/20 11/26/21 01/16/21 History benztropine 1 mg tablet 1 mg PO BID 02/11/21 11/26/21 Unknown History gabapentin 100 mg capsule 100 mg PO TID 02/11/21 11/26/21 Unknown History lithium carbonate 450 mg 450 mg PO BID 02/11/21 11/26/21 Unknown History tablet,extended release lorazepam 1 mg tablet 1 mg PO QID PRN 02/11/21 11/26/21 Unknown History omeprazole 40 mg capsule,delayed 40 mg PO DAILY 02/11/21 11/26/21 Unknown History release Exam Exam Date and Time: February 21, 2022 0646 Height,Weight and Vital Signs: Height 5 ft 3 in Weight 81.193 kg Last Vital Signs Temp 97.8 F 02/21/22 06:32 Pulse 88 02/21/22 06:32 Resp 18 02/21/22 06:32 BP 159/81 H 02/21/22 06:32 Pulse Ox 97 02/21/22 06:32 Pertinent Lab Results Pertinent Lab Results: Laboratory Tests 02/21/22 06:15 COVID-19 ([facility]) Negative COVID-19 Clin Com See Note Airway Mallampati Class: II TM Dist: >3cm Neck ROM: Full Heart: rrr Lungs: cta Assessment and Plan Assessment Anesthesia Assessment: Anesthesia Plan Discussed and Chart Reviewed Final Anesthetic Review Family History of Problems with Anesthesia: No History of Problems with Anesthesia: No NPO: Yes ASA Class: III Final Preanesthetic Review: No Changes in Pt Med Stat, Meds/Allgs Chart Reviewed and Consent Obtained/Reviewed Patient Risk: Intermediate Procedure Risk: Intermediate Anesthetic Plan Anesthetic Plan: GA Disposition: Standard PACU
--- NOTE | 2022-02-21 07:10 | MHC.SHP ---
Pre-Procedural Eval Section A Date of Service: 02/21/22 The patient is an INPATIENT: No Changes since office visit: Yes Cold of Flu in the past 2 weeks, Yes New Medical Problems, Yes Changes in Medication and Yes Patient answered all questions The History & Physical has been completed within 30 days and I have reviewed it.: No Section B Chief Complaint: depression Details of Present Illness: Depression, on ECT Relevant Family History (Specify if Yes): No Relevant Social History: None Present Medications: None Medical History: No relevant PMH History of Previous Operations: No relevant previous surgery Allergies: Allergies Allergy/AdvReac Type Severity Reaction Status Date / Time Sulfa (Sulfonamide Allergy Mild UNKNOWN Verified 02/12/22 10:09 Antibiotics) Sulfa antibotics Allergy Unknown Unknown Uncoded 11/26/21 15:24 Review of Systems Sugical H&P ROS: Negative: Constitution, Cardiovascular, Respiratory, Neurological, Psychiatric, Hem-Onc, Allergic/Immunologic, Gastrointestinal, Genitourinary, Musculoskeletal, Integumentary, Endocrine and Eyes/Ears/Nose/Throat Exam Surgical H&P Exam: Normal: HEENT, Normal: Heart, Normal: Lungs, Normal: Extremities, Normal: Abdomen, Normal: Skin and Normal: Neurological Plan Diagnosis/Plan: Unchanged I have reviewed the history and physical and performed a pertinent physical examination on my patient. No changes have occurred unless specified.
--- NOTE | 2022-02-21 07:25 | HO.ECTPROC ---
ECT Procedure Note Diagnosis/Treatment Date of Service: 02/21/22 Diagnosis: Schizoaffective Disorder Previous ECT Date: 01/31/22 Interval Clinical Notes: The patient reports exacerbation of depression and mood lability with AH. She is hopeful that ECT will help her, no side effects with the previous procedure. ECT Settings Device: THYMATRON DGx Electrode Placement: Rt temporal/ Lt frontal Program/Pulse Width: 0.25 Energy Percent: 100 Seizure Duration By EEG (in seconds): 65 By Motor Observation (in seconds): 27 Medications Administration General Anesthetic: Etomidate (16) Muscle Relaxant: Succinylcholine (100) Ancillary Medications Analgesics: Torodol - Pre ECT Anti-emetics: Zofran - Pre ECT Miscillaneous Medications: Propofol and Midazolam Airway Management Airway Management: Bag Mask Ventilation Treatment Recommendations No Changes Recommended: No change Pt Tolerated Procedure w/o Issue: Yes
[2022-02-21 08:06] LABS: Lithium 0.81 mmol/L (0.60-1.20)
== END 2022-02-21 09:03 | disposition home or self-care (01) ==
PROVIDERS: PCP Internal Medicine; Visit Provider Psychiatry & Neurology Psychiatry
PROC: (CPT 90870; principal; 2022-02-21 07:00)
DX: F25.1 Schizoaffective disorder, depressive type (principal); F25.0 Schizoaffective disorder, bipolar type; Z79.899 Other long term (current) drug therapy; Z20.822 Contact with and (suspected) exposure to COVID-19; Z88.2 Allergy status to sulfonamides
CPT/HCPCS: 36415; 80178; 87635; 90870; J0330; J1885; J2250; J2405

== ENCOUNTER 2022-03-21 06:07 | Day surgery (SDC) | payer MEDICARE, MEDICAID, SELFPAY ==
[2022-03-21 06:34] LABS: COVID-19 Test Negative (Negative)
[2022-03-21 06:40] VITALS: BP 144/70; PULSE 90; RESP 20; TEMP 36.6; O2SAT 100; BMI 30.9
--- NOTE | 2022-03-21 06:47 | P.CONAN_ITS ---
[facility] Active Problems Active Problems: All Active Problems (Updated 02/12/22 @ 11:10 by Bashir Tadeo MD) Hypercholesterolemia (Acute) Left foot pain (Acute) Tinea pedis (Acute) Left foot pain (Acute) Preoperative clearance (Acute) Hypothyroid (Acute) Schizoaffective disorder, bipolar type (Acute) Past Medical History Medical History (Updated 02/12/22 @ 11:10 by Bashir Tadeo MD) Depression Elevated cholesterol Hip fracture requiring operative repair Hypercholesterolemia Hypothyroid Liver laceration Liver problem Schizoaffective disorder, bipolar type Family History Family History Mother No problems noted. Father No problems noted. Family history of problems with anesthesia: No Surgical History Surgical History H/O rhinoplasty History of hip surgery History of tracheostomy Status post aortic coarctation stent placement History of Problems with Anesthesia: No Social History Social History Housing: House Are you a primary after school caregiver to a significant other at home: No Do you presently have visiting nurse or other home services: No Alcohol intake: never Patient Tobacco Use Status: Former Tobacco user e-Cigarette/Vaping Use: Never Used Second Hand Smoke Exposure: No Advance Directives: No Advance Directives Information Provided: Yes service: No Current occupational status: disabled Cognitive needs: No Hearing needs: No Vision needs: Yes (Glasses) Meds Allergies Allergy/AdvReac Type Severity Reaction Status Date / Time Sulfa (Sulfonamide Allergy Mild UNKNOWN Verified 02/12/22 10:09 Antibiotics) Sulfa antibotics Allergy Unknown Unknown Uncoded 11/26/21 15:24 Home Medications Medication Instructions Recorded Confirmed Last Taken Type atorvastatin 20 mg tablet 1 tab PO DAILY 09/04/20 11/26/21 Unknown History donepezil 10 mg tablet 1 tab PO DAILY 09/04/20 11/26/21 Unknown History fluvoxamine 25 mg tablet mg PO 09/04/20 11/26/21 Unknown History levothyroxine 112 mcg tablet 1 tab PO DAILY 09/04/20 11/26/21 Unknown History lithium carbonate 150 mg capsule 1 cap PO BID 09/04/20 11/26/21 Unknown History olanzapine 10 mg tablet mg PO 09/04/20 11/26/21 01/16/21 History benztropine 1 mg tablet 1 mg PO BID 02/11/21 11/26/21 Unknown History gabapentin 100 mg capsule 100 mg PO TID 02/11/21 11/26/21 Unknown History lithium carbonate 450 mg 450 mg PO BID 02/11/21 11/26/21 Unknown History tablet,extended release lorazepam 1 mg tablet 1 mg PO QID PRN 02/11/21 11/26/21 Unknown History omeprazole 40 mg capsule,delayed 40 mg PO DAILY 02/11/21 11/26/21 Unknown History release Exam Exam Date and Time: March 21, 2022 0647 Height,Weight and Vital Signs: Height 5 ft 3 in Weight 79.379 kg Last Vital Signs Temp 98 F 03/21/22 06:40 Pulse 90 03/21/22 06:40 Resp 20 03/21/22 06:40 BP 144/70 H 03/21/22 06:40 Pulse Ox 100 03/21/22 06:40 Pertinent Lab Results Pertinent Lab Results: Laboratory Tests 03/21/22 06:10 COVID-19 ([facility]) Negative COVID-19 Clin Com See Note Airway Mallampati Class: II TM Dist: >3cm Neck ROM: Full Heart: rrr Lungs: cta Assessment and Plan Assessment Anesthesia Assessment: Anesthesia Plan Discussed and Chart Reviewed Final Anesthetic Review Family History of Problems with Anesthesia: No History of Problems with Anesthesia: No NPO: Yes ASA Class: III Final Preanesthetic Review: No Changes in Pt Med Stat, Meds/Allgs Chart Reviewed and Consent Obtained/Reviewed Patient Risk: Intermediate Procedure Risk: Intermediate Anesthetic Plan Anesthetic Plan: GA Disposition: Standard PACU
--- NOTE | 2022-03-21 07:05 | MHC.SHP ---
Pre-Procedural Eval Section A Date of Service: 03/21/22 The patient is an INPATIENT: No Changes since office visit: Yes Cold of Flu in the past 2 weeks, Yes New Medical Problems, Yes Changes in Medication and Yes Patient answered all questions The History & Physical has been completed within 30 days and I have reviewed it.: Yes Section B Chief Complaint: depression Details of Present Illness: Hx of mood lability wiht psychosis Relevant Family History (Specify if Yes): No Relevant Social History: None Present Medications: see Short Stay Collaborative assessment Medical History: No relevant PMH History of Previous Operations: No relevant previous surgery Allergies: Allergies Allergy/AdvReac Type Severity Reaction Status Date / Time Sulfa (Sulfonamide Allergy Mild UNKNOWN Verified 02/12/22 10:09 Antibiotics) Sulfa antibotics Allergy Unknown Unknown Uncoded 11/26/21 15:24 Review of Systems Sugical H&P ROS: Negative: Constitution, Cardiovascular, Respiratory, Neurological, Psychiatric, Hem-Onc, Allergic/Immunologic, Gastrointestinal, Genitourinary, Musculoskeletal, Integumentary, Endocrine and Eyes/Ears/Nose/Throat Exam Surgical H&P Exam: Normal: HEENT, Normal: Heart, Normal: Lungs, Normal: Extremities, Normal: Abdomen, Normal: Skin and Normal: Neurological Plan Diagnosis/Plan: Unchanged I have reviewed the history and physical and performed a pertinent physical examination on my patient. No changes have occurred unless specified.
--- NOTE | 2022-03-21 07:21 | HO.ECTPROC ---
ECT Procedure Note Diagnosis/Treatment Date of Service: 03/21/22 Diagnosis: Schizoaffective Disorder Previous ECT Date: 02/21/22 Treatment: Series Interval Clinical Notes: The patient reports short term memory, no dysphoria, no poor sleep. No side effect with previous ECT. ECT Settings Device: THYMATRON DGx Electrode Placement: Right Unilateral Program/Pulse Width: 0.25 Energy Percent: 100 Seizure Duration By EEG (in seconds): 51 By Motor Observation (in seconds): 31 Medications Administration General Anesthetic: Etomidate (16) Muscle Relaxant: Succinylcholine (100) Ancillary Medications Analgesics: Torodol - Pre ECT Anti-emetics: Zofran - Pre ECT Miscillaneous Medications: Propofol and Midazolam Airway Management Airway Management: Bag Mask Ventilation Treatment Recommendations No Changes Recommended: No change Pt Tolerated Procedure w/o Issue: Yes
[2022-03-21 07:30] VITALS: BP 141/59; PULSE 50; RESP 16; TEMP 37.3; O2SAT 97
[2022-03-21 07:35] VITALS: BP 118/68; PULSE 78; RESP 12; O2SAT 98
[2022-03-21 07:40] VITALS: BP 112/67; PULSE 70; RESP 12; O2SAT 100
[2022-03-21 07:45] VITALS: BP 109/64; PULSE 67; RESP 12; O2SAT 100
[2022-03-21 08:09] VITALS: BP 117/72; RESP 16; TEMP 36.8; O2SAT 96
== END 2022-03-21 08:35 | disposition home or self-care (01) ==
PROVIDERS: PCP Internal Medicine; Visit Provider Psychiatry & Neurology Psychiatry
PROC: (CPT 90870; principal; 2022-03-21 07:00)
DX: F25.0 Schizoaffective disorder, bipolar type (principal); E03.9 Hypothyroidism, unspecified; E78.00 Pure hypercholesterolemia, unspecified; Z79.899 Other long term (current) drug therapy; Z88.2 Allergy status to sulfonamides; Z20.822 Contact with and (suspected) exposure to COVID-19
CPT/HCPCS: 87635; 90870; J0330; J1885; J2250; J2405

== ENCOUNTER 2022-04-04 06:02 | Day surgery (SDC) | payer MEDICARE, MEDICAID, SELFPAY ==
[2022-04-04 06:22] VITALS: BP 148/81; PULSE 96; RESP 20; TEMP 36.5; O2SAT 99; BMI 30.8
[2022-04-04 06:38] LABS: COVID-19 Test Negative (Negative)
--- NOTE | 2022-04-04 07:01 | HO.ANESPROP2 ---
[facility], [facility] Active Problems Active Problems: All Active Problems (Updated 02/12/22 @ 11:10 by Bashir Tadeo MD) Hypercholesterolemia (Acute) Left foot pain (Acute) Tinea pedis (Acute) Left foot pain (Acute) Preoperative clearance (Acute) Hypothyroid (Acute) Schizoaffective disorder, bipolar type (Acute) Past Medical History Medical History (Updated 02/12/22 @ 11:10 by Bashir Tadeo MD) Depression Elevated cholesterol Hip fracture requiring operative repair Hypercholesterolemia Hypothyroid Liver laceration Liver problem Schizoaffective disorder, bipolar type Family History Family History Mother No problems noted. Father No problems noted. Family history of problems with anesthesia: No Surgical History Surgical History H/O rhinoplasty History of hip surgery History of tracheostomy Status post aortic coarctation stent placement History of Problems with Anesthesia: No Social History Social History Housing: House Are you a primary career services representative to a significant other at home: No Do you presently have visiting nurse or other home services: No Alcohol intake: never Patient Tobacco Use Status: Former Tobacco user e-Cigarette/Vaping Use: Never Used Second Hand Smoke Exposure: No Advance Directives: No Advance Directives Information Provided: Yes service: No Current occupational status: disabled Cognitive needs: No Hearing needs: No Vision needs: Yes (Glasses) Meds Allergies Allergy/AdvReac Type Severity Reaction Status Date / Time Sulfa (Sulfonamide Allergy Mild UNKNOWN Verified 02/12/22 10:09 Antibiotics) Sulfa antibotics Allergy Unknown Unknown Uncoded 11/26/21 15:24 Home Medications Medication Instructions Recorded Confirmed Last Taken Type atorvastatin 20 mg tablet 1 tab PO DAILY 09/04/20 11/26/21 Unknown History donepezil 10 mg tablet 1 tab PO DAILY 09/04/20 11/26/21 Unknown History fluvoxamine 25 mg tablet mg PO 09/04/20 11/26/21 Unknown History levothyroxine 112 mcg tablet 1 tab PO DAILY 09/04/20 11/26/21 Unknown History lithium carbonate 150 mg capsule 1 cap PO BID 09/04/20 11/26/21 Unknown History olanzapine 10 mg tablet mg PO 09/04/20 11/26/21 01/16/21 History benztropine 1 mg tablet 1 mg PO BID 02/11/21 11/26/21 Unknown History gabapentin 100 mg capsule 100 mg PO TID 02/11/21 11/26/21 Unknown History lithium carbonate 450 mg 450 mg PO BID 02/11/21 11/26/21 Unknown History tablet,extended release lorazepam 1 mg tablet 1 mg PO QID PRN 02/11/21 11/26/21 Unknown History omeprazole 40 mg capsule,delayed 40 mg PO DAILY 02/11/21 11/26/21 Unknown History release Exam Exam Date and Time: April 04, 2022 07 Height,Weight and Vital Signs: Height 5 ft 3 in Weight 78.925 kg Last Vital Signs Temp 97.7 F 04/04/22 06:22 Pulse 96 04/04/22 06:22 Resp 20 04/04/22 06:22 BP 148/81 H 04/04/22 06:22 Pulse Ox 99 04/04/22 06:22 Pertinent Lab Results Pertinent Lab Results: Laboratory Tests 04/04/22 06:10 COVID-19 ([facility]) Negative COVID-19 Clin Com See Note Airway Mallampati Class: II TM Dist: >3cm Neck ROM: Full Heart: rrr Lungs: cta Assessment and Plan Assessment Anesthesia Assessment: Anesthesia Plan Discussed and Chart Reviewed Final Anesthetic Review Family History of Problems with Anesthesia: No History of Problems with Anesthesia: No NPO: Yes ASA Class: III Final Preanesthetic Review: No Changes in Pt Med Stat, Meds/Allgs Chart Reviewed, Consent Obtained/Reviewed and Anes Risks/Benef Reviewed Patient Risk: Intermediate Procedure Risk: Intermediate Anesthetic Plan Anesthetic Plan: GA Disposition: Standard PACU
--- NOTE | 2022-04-04 07:26 | MHC.SHP ---
Pre-Procedural Eval Section A Date of Service: 04/04/22 The patient is an INPATIENT: No Changes since office visit: Yes Cold of Flu in the past 2 weeks, Yes New Medical Problems, Yes Changes in Medication and Yes Patient answered all questions The History & Physical has been completed within 30 days and I have reviewed it.: Yes Section B Chief Complaint: depression, Relevant Family History (Specify if Yes): No Relevant Social History: None Present Medications: None Medical History: No relevant PMH History of Previous Operations: No relevant previous surgery Allergies: Allergies Allergy/AdvReac Type Severity Reaction Status Date / Time Sulfa (Sulfonamide Allergy Mild UNKNOWN Verified 02/12/22 10:09 Antibiotics) Sulfa antibotics Allergy Unknown Unknown Uncoded 11/26/21 15:24 Review of Systems Sugical H&P ROS: Negative: Constitution, Cardiovascular, Respiratory, Neurological, Psychiatric, Hem-Onc, Allergic/Immunologic, Gastrointestinal, Genitourinary, Musculoskeletal, Integumentary, Endocrine and Eyes/Ears/Nose/Throat Exam Surgical H&P Exam: Normal: HEENT, Normal: Heart, Normal: Lungs, Normal: Extremities, Normal: Abdomen, Normal: Skin and Normal: Neurological Plan Diagnosis/Plan: Unchanged I have reviewed the history and physical and performed a pertinent physical examination on my patient. No changes have occurred unless specified.
--- NOTE | 2022-04-04 07:27 | HO.ECTPROC ---
ECT Procedure Note Diagnosis/Treatment Date of Service: 04/04/22 Diagnosis: Schizoaffective Disorder Previous ECT Date: 03/21/22 Treatment: Maintenance Interval Clinical Notes: The patient reported some depression. She complaint of jerking movements sporadicly ECT Settings Device: THYMATRON DGx Electrode Placement: Right Unilateral Program/Pulse Width: 0.50 Energy Percent: 100 Seizure Duration By EEG (in seconds): 61 By Motor Observation (in seconds): 31 Medications Administration General Anesthetic: Etomidate Muscle Relaxant: Succinylcholine Ancillary Medications Analgesics: Torodol - Pre ECT Anti-emetics: Zofran - Pre ECT Airway Management Airway Management: Bag Mask Ventilation Treatment Recommendations No Changes Recommended: No change Pt Tolerated Procedure w/o Issue: Yes
[2022-04-04 07:44] VITALS: BP 148/81; PULSE 96; RESP 20; TEMP 36.5; O2SAT 99
[2022-04-04 07:49] VITALS: BP 107/56; PULSE 58; RESP 20; O2SAT 99
[2022-04-04 07:54] VITALS: BP 105/60; PULSE 74; RESP 15; O2SAT 99
[2022-04-04 07:59] VITALS: BP 119/73; PULSE 66; RESP 12; O2SAT 100
[2022-04-04 08:14] VITALS: BP 113/62; PULSE 66; RESP 12; TEMP 36.8; O2SAT 98
== END 2022-04-04 08:31 | disposition home or self-care (01) ==
PROVIDERS: PCP Internal Medicine; Visit Provider Psychiatry & Neurology Psychiatry
PROC: (CPT 90870; principal; 2022-04-04 07:30)
DX: F25.0 Schizoaffective disorder, bipolar type (principal); G25.3 Myoclonus; E78.00 Pure hypercholesterolemia, unspecified; E03.9 Hypothyroidism, unspecified; Z79.899 Other long term (current) drug therapy; Z98.890 Other specified postprocedural states; Z87.891 Personal history of nicotine dependence; Z20.822 Contact with and (suspected) exposure to COVID-19
CPT/HCPCS: 87635; 90870; J0330; J1885; J2250; J2405

== ENCOUNTER 2022-04-18 15:57 | Outpatient (REF) | payer MEDICARE, MEDICAID, SELFPAY ==
[2022-04-18 16:19] LABS: MANUAL DIFF FLAG NO
[2022-04-18 17:08] LABS: Basophils Percent Auto 0.3 % (0-2); Eosinophils Absolute Auto 0.2 X10*3/uL (0.0-0.4); Eosinophils Percent Auto 2.2 % (0-4); Hemoglobin 11.6 g/dl (12.0-16.0); Imm Gran Abs Auto 0.03 X10*3/uL (0.00-0.03); Imm Gran Pct Auto 0.3 % (0.0-0.4); Lymphocytes Absolute Auto 1.7 X10*3/uL (1.2-4.9); Lymphocytes Percent Auto 18.5 % (20-40); Mean Corpuscular HGB Conc 32.2 g/dl (31.0-35.0); Mean Corpuscular Hemoglobin 30.4 pg (27.0-33.0); Mean Corpuscular Volume 94.5 fL (80.0-98.0); Mean Platelet Volume 10.4 fL (9.4-12.3); Monocytes Absolute Auto 0.4 X10*3/uL (0.1-1.2); Monocytes Percent Auto 4.8 % (2-11); Neutrophils Absolute Auto 6.8 x10*3/uL (2.0-8.3); Neutrophils Percent Auto 73.9 % (45-73); Platelet Count 250 X10*3/uL (160-400); Red Blood Count 3.81 X10*6/uL (4.20-5.50); White Blood Count 9.2 X10*3/uL (4.8-10.8)
[2022-04-18 17:16] LABS: Estimated Average Glucose 103 mg/dL; Hemoglobin A1C 109.2039 umol/L; Hemoglobin A1c % 5.2 %
[2022-04-18 17:36] LABS: Free T4 (Free Thyroxine) 1.25 ng/dL (0.71-1.85); Thyroid Stimulating Hormone 0.24 uIU/mL (0.32-4.0); Vitamin D 25-OH Total 45.7 ng/mL (>30)
[2022-04-18 17:57] LABS: Vitamin B12 754 pg/mL (200-900)
[2022-04-18 18:02] LABS: Lithium 1.72 mmol/L (0.60-1.20)
[2022-04-22 14:31] LABS: CRP High Sensitivity 0.7 mg/L
== END 2022-04-18 15:58 | disposition home or self-care (01) ==
LOC: HO.LAB 15:57
PROVIDERS: Visit Provider Psychiatry & Neurology Psychiatry
DX: F31.11 Bipolar disorder, current episode manic without psychotic features, mild (principal); Z79.899 Other long term (current) drug therapy
CPT/HCPCS: 36415; 80178; 82306; 82607; 82746; 83036; 84439; 84443; 85025; 86141

== ENCOUNTER 2022-04-25 09:51 | Outpatient (REF) | payer MEDICARE, MEDICAID, SELFPAY ==
[2022-04-25 12:21] LABS: Anion Gap 14 (12-20); Blood Urea Nitrogen 10 mg/dL (9-16); Calcium 9.4 mg/dL (8.4-10.2); Carbon Dioxide 20 mmol/L (22-29); Chloride 105 mmol/L (96-108); Estimated Glomerular Filt Rate > 60; Glucose Random 95 mg/dL (60-115); Potassium 4.1 mmol/L (3.3-5.1); Sodium 135 mmol/L (135-145)
== END 2022-04-25 09:52 | disposition home or self-care (01) ==
LOC: HO.LAB 09:51
PROVIDERS: PCP Internal Medicine; Visit Provider Psychiatry & Neurology Psychiatry
DX: F31.11 Bipolar disorder, current episode manic without psychotic features, mild (principal)
CPT/HCPCS: 36415; 80048; 80178

== ENCOUNTER → 2022-05-12 09:03 | Outpatient (REF) | payer MEDICARE, MEDICAID, SELFPAY ==
--- NOTE | 2022-05-12 09:08 | ECG_ITS ---
Test Reason : PREOP Blood Pressure : / mmHG Vent. Rate : 092 BPM Atrial Rate : 092 BPM P-R Int : 158 ms QRS Dur : 092 ms QT Int : 364 ms P-R-T Axes : 062 011 048 degrees QTc Int : 450 ms Normal sinus rhythm Normal ECG When compared with ECG of 20-DEC-2021 08:16, No significant change was found Referred By: Jose Carlos Alvarez Electronically Signed By:ARIANE LOONEY MD
[2022-05-12 09:30] LABS: MANUAL DIFF FLAG NO
[2022-05-12 10:41] LABS: Basophils Percent Auto 0.6 % (0-2); Eosinophils Absolute Auto 0.2 X10*3/uL (0.0-0.4); Eosinophils Percent Auto 2.4 % (0-4); Hematocrit 39.5 % (37.0-47.0); Hemoglobin 12.9 g/dl (12.0-16.0); Imm Gran Abs Auto 0.02 X10*3/uL (0.00-0.03); Imm Gran Pct Auto 0.3 % (0.0-0.4); Lymphocytes Absolute Auto 1.1 X10*3/uL (1.2-4.9); Lymphocytes Percent Auto 17.6 % (20-40); Mean Corpuscular HGB Conc 32.7 g/dl (31.0-35.0); Mean Corpuscular Hemoglobin 31.2 pg (27.0-33.0); Mean Corpuscular Volume 95.4 fL (80.0-98.0); Mean Platelet Volume 10.7 fL (9.4-12.3); Monocytes Absolute Auto 0.4 X10*3/uL (0.1-1.2); Monocytes Percent Auto 6.4 % (2-11); Neutrophils Absolute Auto 4.5 x10*3/uL (2.0-8.3); Neutrophils Percent Auto 72.7 % (45-73); Platelet Count 244 X10*3/uL (160-400); Red Blood Count 4.14 X10*6/uL (4.20-5.50); Red Cell Distribution Width 13.1 % (11.0-16.0); White Blood Count 6.3 X10*3/uL (4.8-10.8)
[2022-05-12 11:01] LABS: Alanine Aminotransferase 23 U/L (0-31); Albumin Level 4.7 g/dL (3.5-5.0); Alkaline Phosphatase 95 U/L (39-117); Anion Gap 12 (12-20); Aspartate Amino Transferase 16 U/L (5-31); Bilirubin Total 0.6 mg/dL (0.0-1.0); Blood Urea Nitrogen 13 mg/dL (9-16); Calcium 9.9 mg/dL (8.4-10.2); Carbon Dioxide 26 mmol/L (22-29); Chloride 106 mmol/L (96-108); Estimated Glomerular Filt Rate 52; Glucose Random 145 mg/dL (60-115); Potassium 5.7 mmol/L (3.3-5.1); Sodium 138 mmol/L (135-145); Total Protein 7.2 g/dL (6.5-8.0)
== END ==
LOC: HO.CARD 09:03
PROVIDERS: PCP Internal Medicine; Visit Provider Psychiatry & Neurology Psychiatry
DX: Z01.818 Encounter for other preprocedural examination (principal)
CPT/HCPCS: 36415; 80053; 85025; 93005

== ENCOUNTER 2022-05-14 09:24 | Outpatient (REF) | payer MEDICARE, MEDICAID, SELFPAY ==
[2022-05-14 10:13] LABS: Potassium 5.3 mmol/L (3.3-5.1)
[2022-05-15 07:15] LABS: Anion Gap 12 (12-20); Blood Urea Nitrogen 15 mg/dL (9-16); Calcium 9.9 mg/dL (8.4-10.2); Carbon Dioxide 25 mmol/L (22-29); Chloride 105 mmol/L (96-108); Estimated Glomerular Filt Rate 56; Glucose Random 106 mg/dL (60-115); Potassium 5.3 mmol/L (3.3-5.1); Sodium 137 mmol/L (135-145)
== END 2022-05-14 09:25 | disposition home or self-care (01) ==
LOC: HO.LAB 09:24
PROVIDERS: PCP Internal Medicine; Visit Provider Nurse Practitioner Family
DX: E87.5 Hyperkalemia (principal)
CPT/HCPCS: 36415; 80048; 83735; 84132

== ENCOUNTER 2022-05-21 06:03 | Day surgery (SDC) | payer MEDICARE, MEDICAID, SELFPAY ==
[2022-05-21 06:20] VITALS: BMI 30.4
[2022-05-21 06:24] VITALS: BP 150/79; PULSE 96; RESP 12; TEMP 36.4; O2SAT 98
--- NOTE | 2022-05-21 06:35 | HO.ANESPROP2 ---
[facility] Active Problems Active Problems: All Active Problems (Updated 05/20/22 @ 11:08 by Bashir Tadeo MD) Diarrhea (Acute) Hyperkalemia (Acute) Shortness of breath (Acute) Hypercholesterolemia (Acute) Left foot pain (Acute) Tinea pedis (Acute) Left foot pain (Acute) Preoperative clearance (Acute) Hypothyroid (Acute) Schizoaffective disorder, bipolar type (Acute) Past Medical History Medical History (Updated 05/20/22 @ 11:08 by Bashir Tadeo MD) Depression Elevated cholesterol Hip fracture requiring operative repair Liver laceration Liver problem Family History Family History Mother No problems noted. Father No problems noted. Family history of problems with anesthesia: No Surgical History Surgical History H/O rhinoplasty History of hip surgery History of tracheostomy Status post aortic coarctation stent placement History of Problems with Anesthesia: No Social History Social History Housing: House Are you a primary animal caretaker supervisor to a significant other at home: No Do you presently have visiting nurse or other home services: No Alcohol intake: never Patient Tobacco Use Status: Former Tobacco user e-Cigarette/Vaping Use: Never Used Second Hand Smoke Exposure: No Are you DNR?: No Advance Directives: No Advance Directives Information Provided: Yes service: No Current occupational status: disabled Cognitive needs: No Hearing needs: No Vision needs: Yes (Glasses) Meds Allergies Allergy/AdvReac Type Severity Reaction Status Date / Time Sulfa (Sulfonamide Allergy Mild UNKNOWN Verified 05/20/22 10:26 Antibiotics) Active Medications: Current Medications Lactated Ringer's (Lr) 1,000 mls @ 50 mls/hr IVCONT .Q20H [facility] Home Medications Medication Instructions Recorded Confirmed Last Taken Type atorvastatin 20 mg tablet 1 tab PO DAILY 09/04/20 11/26/21 Unknown History donepezil 10 mg tablet 1 tab PO DAILY 09/04/20 11/26/21 Unknown History fluvoxamine 25 mg tablet mg PO 09/04/20 11/26/21 Unknown History levothyroxine 112 mcg tablet 1 tab PO DAILY 09/04/20 11/26/21 Unknown History lithium carbonate 150 mg capsule 1 cap PO BID 09/04/20 11/26/21 Unknown History olanzapine 10 mg tablet mg PO 09/04/20 11/26/21 01/16/21 History benztropine 1 mg tablet 1 mg PO BID 02/11/21 11/26/21 Unknown History gabapentin 100 mg capsule 100 mg PO TID 02/11/21 11/26/21 Unknown History lithium carbonate 450 mg 450 mg PO BID 02/11/21 11/26/21 Unknown History tablet,extended release lorazepam 1 mg tablet 1 mg PO QID PRN 02/11/21 11/26/21 Unknown History omeprazole 40 mg capsule,delayed 40 mg PO DAILY 02/11/21 11/26/21 Unknown History release Exam Exam Date and Time: May 21, 2022 0635 Height,Weight and Vital Signs: Height 5 ft 3 in Weight 78.018 kg Last Vital Signs Temp 97.5 F 05/21/22 06:24 Pulse 96 05/21/22 06:24 Resp 12 05/21/22 06:24 BP 150/79 H 05/21/22 06:24 Pulse Ox 98 05/21/22 06:24 O2 Del Method 05/21/22 06:24 Airway Mallampati Class: II TM Dist: >3cm Neck ROM: Full Heart: rrr Lungs: cta Assessment and Plan Assessment Anesthesia Assessment: Anesthesia Plan Discussed and Chart Reviewed Final Anesthetic Review Family History of Problems with Anesthesia: No History of Problems with Anesthesia: No NPO: Yes ASA Class: III Final Preanesthetic Review: No Changes in Pt Med Stat, Meds/Allgs Chart Reviewed and Consent Obtained/Reviewed Patient Risk: Intermediate Procedure Risk: Intermediate Anesthetic Plan Anesthetic Plan: GA Disposition: Standard PACU
[2022-05-21 06:39] LABS: COVID-19 Test Negative (Negative); IDNOW Serial# 55D5AD1C
--- NOTE | 2022-05-21 07:08 | MHC.SHP ---
Pre-Procedural Eval Section A Date of Service: 05/21/22 Changes since office visit: Yes Patient answered all questions; No Cold of Flu in the past 2 weeks, No New Medical Problems and No Changes in Medication Section B Chief Complaint: depression Details of Present Illness: paranoia depression Relevant Social History: None Present Medications: see Short Stay Collaborative assessment History of Previous Operations: Relevant previous surgery/procedure and date(s) (ect) Allergies: Allergies Allergy/AdvReac Type Severity Reaction Status Date / Time Sulfa (Sulfonamide Allergy Mild UNKNOWN Verified 05/20/22 10:26 Antibiotics) Review of Systems Sugical H&P ROS: Negative: Constitution, Cardiovascular, Respiratory and Psychiatric (PI) Exam Surgical H&P Exam: Normal: Heart and Normal: Lungs Plan Diagnosis/Plan: Unchanged I have reviewed the history and physical and performed a pertinent physical examination on my patient. No changes have occurred unless specified.
--- NOTE | 2022-05-21 07:24 | HO.ECTPROC ---
ECT Procedure Note Diagnosis/Treatment Date of Service: 05/21/22 Diagnosis: Schizoaffective Disorder Previous ECT Date: 04/04/22 Treatment: Maintenance Interval Clinical Notes: The patient has been depressed periods of paranoia has missed number of ECTs secondary to anxiety. Unclear if has been taking meds correctly will be seen in 2 days outpatient has generally done well with ECT is Fares depression and mood stability ECT Settings Device: THYMATRON DGx Electrode Placement: Right Unilateral Program/Pulse Width: 0.50 Energy Percent: 100 Seizure Duration By EEG (in seconds): 64 Medications Administration General Anesthetic: Etomidate (16) Muscle Relaxant: Succinylcholine (100) Ancillary Medications Analgesics: Torodol - Pre ECT (15) Anti-emetics: Zofran - Pre ECT (4) Miscillaneous Medications: Midazolam (2 mg Post for anxiety) Airway Management Airway Management: Bag Mask Ventilation Treatment Recommendations No Changes Recommended: No change Notes: Check electrolytes and lithium level follow-up treatment in 1 week Pt Tolerated Procedure w/o Issue: Yes
[2022-05-21 07:25] VITALS: BP 140/73; PULSE 64; RESP 16; TEMP 37.4; O2SAT 100
[2022-05-21 07:30] VITALS: BP 118/66; PULSE 69; RESP 12
[2022-05-21 07:35] VITALS: BP 112/62; PULSE 67; RESP 10; O2SAT 100
[2022-05-21 07:40] VITALS: BP 115/65; PULSE 70; RESP 10; TEMP 37.7; O2SAT 100
[2022-05-21 07:55] VITALS: BP 112/57; PULSE 68; RESP 16; TEMP 36.6; O2SAT 95
[2022-05-21 08:19] LABS: Lithium 0.72 mmol/L (0.60-1.20)
[2022-05-21 08:20] LABS: Alanine Aminotransferase 18 U/L (0-31); Albumin Level 4.4 g/dL (3.5-5.0); Alkaline Phosphatase 91 U/L (39-117); Anion Gap 11 (12-20); Aspartate Amino Transferase 17 U/L (5-31); Bilirubin Total 0.7 mg/dL (0.0-1.0); Blood Urea Nitrogen 11 mg/dL (9-16); Calcium 9.3 mg/dL (8.4-10.2); Carbon Dioxide 25 mmol/L (22-29); Chloride 110 mmol/L (96-108); Estimated Glomerular Filt Rate > 60; Glucose Fasting 149 mg/dL (60-99); Potassium 4.2 mmol/L (3.3-5.1); Sodium 142 mmol/L (135-145); Total Protein 6.8 g/dL (6.5-8.0)
[2022-05-21 08:42] LABS: TSH reflex Free T4 0.55 uIU/mL (0.32-4.0)
== END 2022-05-21 08:30 | disposition home or self-care (01) ==
PROVIDERS: PCP Internal Medicine; Visit Provider Psychiatry & Neurology Psychiatry
PROC: (CPT 90870; principal; 2022-05-21 07:50)
DX: F33.3 Major depressive disorder, recurrent, severe with psychotic symptoms (principal); E78.5 Hyperlipidemia, unspecified; Z88.2 Allergy status to sulfonamides; Z87.891 Personal history of nicotine dependence; Z20.822 Contact with and (suspected) exposure to COVID-19
CPT/HCPCS: 36415; 80053; 80178; 84443; 87635; 90870; J0330; J1885; J2250; J2405

== ENCOUNTER 2022-05-28 05:56 | Day surgery (SDC) | payer MEDICARE, MEDICAID, SELFPAY ==
[2022-05-28] VITALS (8 sets, daily range): BP systolic 113–146; BP diastolic 52–68; PULSE 50–81; RESP 16–20; TEMP 36.5–37; O2SAT 97–100; BMI 29.0
--- NOTE | 2022-05-28 06:26 | HO.ANESPROP2 ---
HPI - Anesthesia Eval Consult details Narrative: Major Depressive disorder PMF Active Problems Active Problems: All Active Problems (Updated 05/20/22 @ 11:08 by Bashir Tadeo MD) Diarrhea (Acute) Hyperkalemia (Acute) Shortness of breath (Acute) Hypercholesterolemia (Acute) Left foot pain (Acute) Tinea pedis (Acute) Left foot pain (Acute) Preoperative clearance (Acute) Hypothyroid (Acute) Schizoaffective disorder, bipolar type (Acute) Past Medical History Medical History (Updated 05/20/22 @ 11:08 by Bashir Tadeo MD) Depression Elevated cholesterol Hip fracture requiring operative repair Hypercholesterolemia Hypothyroid Liver laceration Liver problem Schizoaffective disorder, bipolar type Family History Family History Mother No problems noted. Father No problems noted. Family history of problems with anesthesia: No Surgical History Surgical History H/O rhinoplasty History of hip surgery History of tracheostomy Status post aortic coarctation stent placement History of Problems with Anesthesia: No Social History Social History Housing: House Are you a primary furnace caretaker to a significant other at home: No Do you presently have visiting nurse or other home services: No Alcohol intake: never Patient Tobacco Use Status: Former Tobacco user e-Cigarette/Vaping Use: Never Used Second Hand Smoke Exposure: No Advance Directives: No Advance Directives Information Provided: Yes service: No Current occupational status: disabled Cognitive needs: No Hearing needs: No Vision needs: Yes (Glasses) Meds Allergies Allergy/AdvReac Type Severity Reaction Status Date / Time Sulfa (Sulfonamide Allergy Mild UNKNOWN Verified 05/20/22 10:26 Antibiotics) Home Medications Medication Instructions Recorded Confirmed Last Taken Type atorvastatin 20 mg tablet 1 tab PO DAILY 09/04/20 11/26/21 Unknown History donepezil 10 mg tablet 1 tab PO DAILY 09/04/20 11/26/21 Unknown History fluvoxamine 25 mg tablet mg PO 09/04/20 11/26/21 Unknown History levothyroxine 112 mcg tablet 1 tab PO DAILY 09/04/20 11/26/21 Unknown History lithium carbonate 150 mg capsule 1 cap PO BID 09/04/20 11/26/21 Unknown History olanzapine 10 mg tablet mg PO 09/04/20 11/26/21 01/16/21 History benztropine 1 mg tablet 1 mg PO BID 02/11/21 11/26/21 Unknown History gabapentin 100 mg capsule 100 mg PO TID 02/11/21 11/26/21 Unknown History lithium carbonate 450 mg 450 mg PO BID 02/11/21 11/26/21 Unknown History tablet,extended release lorazepam 1 mg tablet 1 mg PO QID PRN 02/11/21 11/26/21 Unknown History omeprazole 40 mg capsule,delayed 40 mg PO DAILY 02/11/21 11/26/21 Unknown History release Exam Exam Date and Time: May 28, [id number] Airway Mallampati Class: II TM Dist: >3cm Neck ROM: Full Loose/Missing/Broken Teeth: No Heart: rrr+s1s2 Lungs: cta b/l Assessment and Plan Assessment Anesthesia Assessment: Anesthesia Plan Discussed and Chart Reviewed Final Anesthetic Review Family History of Problems with Anesthesia: No History of Problems with Anesthesia: No NPO: Yes ASA Class: III Final Preanesthetic Review: No Changes in Pt Med Stat, Meds/Allgs Chart Reviewed, Consent Obtained/Reviewed and Anes Risks/Benef Reviewed Patient Risk: Intermediate Procedure Risk: Intermediate Assessment/Block/Sedation in SS: Assess/Block/Sedation-SS Anesthetic Plan Anesthetic Plan: GA and Agree w/ Assess. and Plan Disposition: Standard PACU
[2022-05-28 06:48] LABS: COVID-19 Test Negative (Negative); IDNOW Serial# 9DB6401D
--- NOTE | 2022-05-28 07:05 | MHC.SHP ---
Pre-Procedural Eval Section A Date of Service: 05/28/22 Changes since office visit: Yes Patient answered all questions; No Cold of Flu in the past 2 weeks, No New Medical Problems and No Changes in Medication The History & Physical has been completed within 30 days and I have reviewed it.: Yes Section B Chief Complaint: depression Details of Present Illness: recurrent dep Present Medications: see Short Stay Collaborative assessment Allergies: Allergies Allergy/AdvReac Type Severity Reaction Status Date / Time Sulfa (Sulfonamide Allergy Mild UNKNOWN Verified 05/20/22 10:26 Antibiotics) Review of Systems Sugical H&P ROS: Negative: Constitution, Cardiovascular and Respiratory and Yes, Specify: Psychiatric (PI) Exam Surgical H&P Exam: Normal: Heart and Normal: Lungs Plan Diagnosis/Plan: Unchanged I have reviewed the history and physical and performed a pertinent physical examination on my patient. No changes have occurred unless specified.
--- NOTE | 2022-05-28 07:23 | MHC.SHP ---
Pre-Procedural Eval Section A Date of Service: 05/28/22 The patient is an INPATIENT: No Changes since office visit: Yes Patient answered all questions; No Cold of Flu in the past 2 weeks, No New Medical Problems and No Changes in Medication The History & Physical has been completed within 30 days and I have reviewed it.: Yes Section B Chief Complaint: depression Allergies: Allergies Allergy/AdvReac Type Severity Reaction Status Date / Time Sulfa (Sulfonamide Allergy Mild UNKNOWN Verified 05/20/22 10:26 Antibiotics) Plan I have reviewed the history and physical and performed a pertinent physical examination on my patient. No changes have occurred unless specified.
--- NOTE | 2022-05-28 07:24 | HO.ECTPROC ---
ECT Procedure Note Diagnosis/Treatment Date of Service: 05/28/22 Diagnosis: Schizoaffective Disorder Previous ECT Date: 06/20/22 Treatment: Maintenance Interval Clinical Notes: pt feels not helped by unilateral tx depressed chronic PI ECT Settings Device: THYMATRON DGx Electrode Placement: Bifrontal Program/Pulse Width: 0.50 Energy Percent: 100 Seizure Duration By EEG (in seconds): 59 Medications Administration General Anesthetic: Etomidate (16) Muscle Relaxant: Succinylcholine (100) Ancillary Medications Analgesics: Torodol - Pre ECT (15) Anti-emetics: Zofran - Pre ECT (4) Miscillaneous Medications: Midazolam (2 mg Post for anxiety) Airway Management Airway Management: Bag Mask Ventilation Treatment Recommendations No Changes Recommended: No change Notes: f/u tx in 2 weeks keep BF Pt Tolerated Procedure w/o Issue: Yes
== END 2022-05-28 08:36 | disposition home or self-care (01) ==
PROVIDERS: PCP Internal Medicine; Visit Provider Psychiatry & Neurology Psychiatry
PROC: (CPT 90870; principal; 2022-05-28 07:30)
DX: F25.0 Schizoaffective disorder, bipolar type (principal); E87.5 Hyperkalemia; R06.02 Shortness of breath; E03.9 Hypothyroidism, unspecified; Z88.2 Allergy status to sulfonamides; Z87.891 Personal history of nicotine dependence
CPT/HCPCS: 87635; 90870; J0330; J1885; J2250; J2405

== ENCOUNTER 2022-06-11 05:59 | Day surgery (SDC) | payer MEDICARE, MEDICAID, SELFPAY ==
[2022-06-11] VITALS (7 sets, daily range): BP systolic 109–177; BP diastolic 57–71; PULSE 54–75; RESP 16–20; TEMP 36.2–37.2; O2SAT 97–100; BMI 30.6
[2022-06-11 06:46] LABS: COVID-19 Test Negative (Negative); IDNOW Serial# 16C4AD1C
--- NOTE | 2022-06-11 07:05 | MHC.SHP ---
Pre-Procedural Eval Section A Date of Service: 06/11/22 The patient is an INPATIENT: No Changes since office visit: Yes Patient answered all questions; No Cold of Flu in the past 2 weeks, No New Medical Problems and No Changes in Medication The History & Physical has been completed within 30 days and I have reviewed it.: Yes Section B Chief Complaint: depression Allergies: Allergies Allergy/AdvReac Type Severity Reaction Status Date / Time Sulfa (Sulfonamide Allergy Mild UNKNOWN Verified 05/20/22 10:26 Antibiotics) Plan I have reviewed the history and physical and performed a pertinent physical examination on my patient. No changes have occurred unless specified.
--- NOTE | 2022-06-11 07:06 | HO.ECTPROC ---
ECT Procedure Note Diagnosis/Treatment Date of Service: 06/11/22 Diagnosis: Schizoaffective Disorder Treatment: Maintenance Interval Clinical Notes: pt with depression amd PI ECT Settings Device: THYMATRON DGx Electrode Placement: Rt temporal/ Lt frontal Program/Pulse Width: 0.50 Energy Percent: 100 Seizure Duration By EEG (in seconds): 58 Medications Administration General Anesthetic: Etomidate Muscle Relaxant: Succinylcholine Ancillary Medications Analgesics: Torodol - Pre ECT Anti-emetics: Zofran - Pre ECT Miscillaneous Medications: Midazolam (2) Airway Management Airway Management: Bag Mask Ventilation Treatment Recommendations No Changes Recommended: No change Pt Tolerated Procedure w/o Issue: Yes
--- NOTE | 2022-06-11 07:13 | P.CONAN_ITS ---
HPI - Anesthesia Eval Consult details Narrative: Major depression [facility] Active Problems Active Problems: All Active Problems (Updated 05/20/22 @ 11:08 by Bashir Tadeo MD) Diarrhea (Acute) Hyperkalemia (Acute) Shortness of breath (Acute) Hypercholesterolemia (Acute) Left foot pain (Acute) Tinea pedis (Acute) Left foot pain (Acute) Preoperative clearance (Acute) Hypothyroid (Acute) Schizoaffective disorder, bipolar type (Acute) Past Medical History Medical History Depression Elevated cholesterol Hip fracture requiring operative repair Hypercholesterolemia Hypothyroid Liver laceration Liver problem Schizoaffective disorder, bipolar type Family History Family History Mother No problems noted. Father No problems noted. Family history of problems with anesthesia: No Surgical History Surgical History H/O rhinoplasty History of hip surgery History of tracheostomy Status post aortic coarctation stent placement History of Problems with Anesthesia: No Social History Social History Housing: House Are you a primary manager wound care to a significant other at home: No Do you presently have visiting nurse or other home services: No Alcohol intake: never Patient Tobacco Use Status: Former Tobacco user e-Cigarette/Vaping Use: Never Used Second Hand Smoke Exposure: No Are you DNR?: No Advance Directives: No Advance Directives Information Provided: Yes service: No Current occupational status: disabled Cognitive needs: No Hearing needs: No Vision needs: Yes (Glasses) Meds Allergies Allergy/AdvReac Type Severity Reaction Status Date / Time Sulfa (Sulfonamide Allergy Mild UNKNOWN Verified 05/20/22 10:26 Antibiotics) Home Medications Medication Instructions Recorded Confirmed Last Taken Type atorvastatin 20 mg tablet 1 tab PO DAILY 09/04/20 11/26/21 Unknown History donepezil 10 mg tablet 1 tab PO DAILY 09/04/20 11/26/21 Unknown History fluvoxamine 25 mg tablet mg PO 09/04/20 11/26/21 Unknown History levothyroxine 112 mcg tablet 1 tab PO DAILY 09/04/20 11/26/21 Unknown History lithium carbonate 150 mg capsule 1 cap PO BID 09/04/20 11/26/21 Unknown History olanzapine 10 mg tablet mg PO 09/04/20 11/26/21 01/16/21 History benztropine 1 mg tablet 1 mg PO BID 02/11/21 11/26/21 Unknown History gabapentin 100 mg capsule 100 mg PO TID 02/11/21 11/26/21 Unknown History lithium carbonate 450 mg 450 mg PO BID 02/11/21 11/26/21 Unknown History tablet,extended release lorazepam 1 mg tablet 1 mg PO QID PRN 02/11/21 11/26/21 Unknown History omeprazole 40 mg capsule,delayed 40 mg PO DAILY 02/11/21 11/26/21 Unknown History release Exam Exam Date and Time: June 11, 2022712 Height,Weight and Vital Signs: Height 5 ft 3 in Weight 78.471 kg Last Vital Signs Temp 97.2 F 06/11/22 06:35 Pulse 75 06/11/22 06:35 Resp 16 06/11/22 06:35 BP 142/70 H 06/11/22 06:35 Pulse Ox 97 06/11/22 06:35 O2 Del Method 06/11/22 06:35 Pertinent Lab Results Pertinent Lab Results: Laboratory Tests 06/11/22 06:15 COVID-19 ([facility]) Negative COVID-19 Clin Com See Note Airway Mallampati Class: II TM Dist: >3cm Neck ROM: Full Loose/Missing/Broken Teeth: No Heart: rrr+s1s2 Lungs: cta b/l Assessment and Plan Assessment Anesthesia Assessment: Anesthesia Plan Discussed and Chart Reviewed Final Anesthetic Review Family History of Problems with Anesthesia: No History of Problems with Anesthesia: No NPO: Yes ASA Class: III Final Preanesthetic Review: No Changes in Pt Med Stat, Meds/Allgs Chart Reviewed, Consent Obtained/Reviewed and DNR Form (If Appl.) Patient Risk: Intermediate Procedure Risk: Intermediate Assessment/Block/Sedation in SS: Assess/Block/Sedation-SS Anesthetic Plan Anesthetic Plan: GA Disposition: Standard PACU
[2022-06-11 08:32] LABS: Estimated Average Glucose 103 mg/dL; Hemoglobin A1c % 5.2 %
== END 2022-06-11 08:25 | disposition home or self-care (01) ==
PROVIDERS: PCP Internal Medicine; Visit Provider Psychiatry & Neurology Psychiatry
PROC: (CPT 90870; principal; 2022-06-11 07:30)
DX: F25.0 Schizoaffective disorder, bipolar type (principal); E87.5 Hyperkalemia; R06.02 Shortness of breath; E78.00 Pure hypercholesterolemia, unspecified; E03.9 Hypothyroidism, unspecified; Z95.828 Presence of other vascular implants and grafts; Z98.890 Other specified postprocedural states; Z20.822 Contact with and (suspected) exposure to COVID-19; Z88.2 Allergy status to sulfonamides; Z87.891 Personal history of nicotine dependence; Z79.899 Other long term (current) drug therapy
CPT/HCPCS: 36415; 83036; 87635; 90870; J0330; J1885; J2250; J2405

== ENCOUNTER 2022-07-02 06:01 | Day surgery (SDC) | payer MEDICARE, MEDICAID, SELFPAY ==
[2022-07-02] VITALS (7 sets, daily range): BP systolic 107–140; BP diastolic 48–69; PULSE 45–76; RESP 8–18; TEMP 36.3–37; O2SAT 96–100; BMI 29.7
[2022-07-02 06:44] LABS: COVID-19 Test Negative (Negative); IDNOW Serial# 55D5AD1C
--- NOTE | 2022-07-02 07:01 | P.CONAN_ITS ---
FORMERLY [facility], [facility] Active Problems Active Problems: All Active Problems (Updated 05/20/22 @ 11:08 by Bashir Tadeo MD) Diarrhea (Acute) Hyperkalemia (Acute) Shortness of breath (Acute) Hypercholesterolemia (Acute) Left foot pain (Acute) Tinea pedis (Acute) Left foot pain (Acute) Preoperative clearance (Acute) Hypothyroid (Acute) Schizoaffective disorder, bipolar type (Acute) Past Medical History Medical History Depression Elevated cholesterol Hip fracture requiring operative repair Hypercholesterolemia Hypothyroid Liver laceration Liver problem Schizoaffective disorder, bipolar type Family History Family History Mother No problems noted. Father No problems noted. Family history of problems with anesthesia: No Surgical History Surgical History H/O rhinoplasty History of hip surgery History of tracheostomy Status post aortic coarctation stent placement History of Problems with Anesthesia: No Social History Social History Housing: House Are you a primary patient care director to a significant other at home: No Do you presently have visiting nurse or other home services: No Alcohol intake: never Patient Tobacco Use Status: Former Tobacco user e-Cigarette/Vaping Use: Never Used Second Hand Smoke Exposure: No Advance Directives: No Advance Directives Information Provided: Yes service: No Current occupational status: disabled Cognitive needs: No Hearing needs: No Vision needs: Yes (Glasses) Meds Allergies Allergy/AdvReac Type Severity Reaction Status Date / Time Sulfa (Sulfonamide Allergy Mild UNKNOWN Verified 05/20/22 10:26 Antibiotics) Home Medications Medication Instructions Recorded Confirmed Last Taken Type atorvastatin 20 mg tablet 1 tab PO DAILY 09/04/20 11/26/21 Unknown History donepezil 10 mg tablet 1 tab PO DAILY 09/04/20 11/26/21 Unknown History fluvoxamine 25 mg tablet mg PO 09/04/20 11/26/21 Unknown History levothyroxine 112 mcg tablet 1 tab PO DAILY 09/04/20 11/26/21 Unknown History lithium carbonate 150 mg capsule 1 cap PO BID 09/04/20 11/26/21 Unknown History olanzapine 10 mg tablet mg PO 09/04/20 11/26/21 01/16/21 History benztropine 1 mg tablet 1 mg PO BID 02/11/21 11/26/21 Unknown History gabapentin 100 mg capsule 100 mg PO TID 02/11/21 11/26/21 Unknown History lithium carbonate 450 mg 450 mg PO BID 02/11/21 11/26/21 Unknown History tablet,extended release lorazepam 1 mg tablet 1 mg PO QID PRN 02/11/21 11/26/21 Unknown History omeprazole 40 mg capsule,delayed 40 mg PO DAILY 02/11/21 11/26/21 Unknown History release Exam Exam Date and Time: July 02, 2022700 Height,Weight and Vital Signs: Height 5 ft 3 in Weight 76.204 kg Last Vital Signs Temp 97.3 F 07/02/22 06:37 Pulse 76 07/02/22 06:37 Resp 18 07/02/22 06:37 BP 132/69 07/02/22 06:37 Pulse Ox 100 07/02/22 06:37 O2 Del Method 07/02/22 06:37 Pertinent Lab Results Pertinent Lab Results: Laboratory Tests 07/02/22 06:10 COVID-19 ([facility]) Negative COVID-19 Clin Com See Note Airway Mallampati Class: II TM Dist: >3cm Neck ROM: Full Heart: RRR Lungs: CTA Assessment and Plan Final Anesthetic Review Family History of Problems with Anesthesia: No History of Problems with Anesthesia: No ASA Class: III Final Preanesthetic Review: No Changes in Pt Med Stat, Meds/Allgs Chart Reviewed, Consent Obtained/Reviewed and Anes Risks/Benef Reviewed Patient Risk: Low Procedure Risk: Low Anesthetic Plan Anesthetic Plan: GA Disposition: Standard PACU
--- NOTE | 2022-07-02 07:07 | MHC.SHP ---
Pre-Procedural Eval Section A Date of Service: 07/02/22 Changes since office visit: Yes Patient answered all questions; No Cold of Flu in the past 2 weeks, No New Medical Problems and No Changes in Medication The History & Physical has been completed within 30 days and I have reviewed it.: No Section B Chief Complaint: depression Details of Present Illness: recurrent depression pi Relevant Social History: None Present Medications: see Short Stay Collaborative assessment Medical History: Significant History History of Previous Operations: No relevant previous surgery (ect orthopedic) Allergies: Allergies Allergy/AdvReac Type Severity Reaction Status Date / Time Sulfa (Sulfonamide Allergy Mild UNKNOWN Verified 05/20/22 10:26 Antibiotics) Review of Systems Sugical H&P ROS: Negative: Constitution, Cardiovascular and Respiratory and Yes, Specify: Musculoskeletal (hipo pain) Exam Surgical H&P Exam: Normal: Heart and Normal: Lungs Plan Diagnosis/Plan: Unchanged I have reviewed the history and physical and performed a pertinent physical examination on my patient. No changes have occurred unless specified.
--- NOTE | 2022-07-02 07:08 | HO.ECTPROC ---
ECT Procedure Note Diagnosis/Treatment Date of Service: 07/02/22 Diagnosis: Schizoaffective Disorder Treatment: Maintenance Interval Clinical Notes: pt with depression and PI scheduled for r hip replacement next wk some improved mood ECT Settings Device: THYMATRON DGx Electrode Placement: Rt temporal/ Lt frontal Program/Pulse Width: 0.50 Energy Percent: 100 Seizure Duration By EEG (in seconds): 53 Medications Administration General Anesthetic: Etomidate (16) Muscle Relaxant: Succinylcholine (100) Ancillary Medications Analgesics: Torodol - Pre ECT Anti-emetics: Zofran - Pre ECT Miscillaneous Medications: Midazolam (2) Airway Management Airway Management: Bag Mask Ventilation Treatment Recommendations No Changes Recommended: No change Pt Tolerated Procedure w/o Issue: Yes
--- NOTE | 2022-07-02 08:38 | HO.POSTANES ---
Post Anesthesia Evaluation Post Anesthesia Evaluation Vital Signs: Vital Signs Temp Pulse Resp BP Pulse Ox O2 Del Method O2 Flow Rate 07/02/22 08:14 97.8 F 68 17 112/56 L 97 Room Air 07/02/22 07:59 66 16 120/61 96 Room Air 07/02/22 07:44 98.4 F 65 12 113/63 100 Nasal Cannula 2 07/02/22 07:39 62 8 L 107/60 100 Nasal Cannula 3 07/02/22 07:34 63 10 L 119/63 100 Nasal Cannula 2 07/02/22 07:29 98.6 F 45 L 16 140/48 H 100 Nasal Cannula 2 07/02/22 06:37 97.3 F 76 18 132/69 100 Room Air Anesthesia: General (H) Mental Status: Awake Pain Control: Satisfactory Nausea/Vomiting: None Hydration: Adequate Anesthesia-Related Issues: No Anes. Related Issues
== END 2022-07-02 08:30 | disposition home or self-care (01) ==
PROVIDERS: PCP Internal Medicine; Visit Provider Psychiatry & Neurology Psychiatry
PROC: (CPT 90870; principal; 2022-07-02 07:30)
DX: F25.0 Schizoaffective disorder, bipolar type (principal); E78.00 Pure hypercholesterolemia, unspecified; E03.9 Hypothyroidism, unspecified; E87.5 Hyperkalemia; R06.02 Shortness of breath; Z79.899 Other long term (current) drug therapy; Z88.2 Allergy status to sulfonamides; Z98.890 Other specified postprocedural states; Z87.891 Personal history of nicotine dependence; Z20.822 Contact with and (suspected) exposure to COVID-19
CPT/HCPCS: 87635; 90870; J0330; J1885; J2250; J2405

== ENCOUNTER 2022-08-01 10:28 | Outpatient (REF) | payer MEDICARE, MEDICAID, SELFPAY ==
--- NOTE | 2022-08-01 10:41 | ECG_ITS ---
Test Reason : f31.11 Blood Pressure : / mmHG Vent. Rate : 075 BPM Atrial Rate : 075 BPM P-R Int : 166 ms QRS Dur : 094 ms QT Int : 396 ms P-R-T Axes : 049 004 040 degrees QTc Int : 442 ms Normal sinus rhythm Normal ECG When compared with ECG of 12-MAY-2022 09:11, No significant change was found Referred By: Jose Carlos Alvarez Electronically Signed By:JULIO GALLEGOS
[2022-08-01 10:47] LABS: MANUAL DIFF FLAG NO
[2022-08-01 11:40] LABS: Lithium 1.25 mmol/L (0.60-1.20)
[2022-08-01 11:45] LABS: Basophils Absolute Auto 0.1 X10*3/uL (0.0-0.2); Basophils Percent Auto 0.7 % (0-2); Eosinophils Absolute Auto 0.1 X10*3/uL (0.0-0.4); Eosinophils Percent Auto 1.6 % (0-4); Hematocrit 33.8 % (37.0-47.0); Hemoglobin 10.5 g/dl (12.0-16.0); Imm Gran Abs Auto 0.05 X10*3/uL (0.00-0.03); Imm Gran Pct Auto 0.7 % (0.0-0.4); Lymphocytes Absolute Auto 1.5 X10*3/uL (1.2-4.9); Lymphocytes Percent Auto 19.4 % (20-40); Mean Corpuscular HGB Conc 31.1 g/dl (31.0-35.0); Mean Corpuscular Hemoglobin 29.9 pg (27.0-33.0); Mean Corpuscular Volume 96.3 fL (80.0-98.0); Monocytes Absolute Auto 0.5 X10*3/uL (0.1-1.2); Monocytes Percent Auto 6.4 % (2-11); Neutrophils Absolute Auto 5.4 x10*3/uL (2.0-8.3); Neutrophils Percent Auto 71.2 % (45-73); Platelet Count 416 X10*3/uL (160-400); Red Blood Count 3.51 X10*6/uL (4.20-5.50); Red Cell Distribution Width 13.7 % (11.0-16.0); White Blood Count 7.5 X10*3/uL (4.8-10.8)
[2022-08-01 12:05] LABS: Alanine Aminotransferase 27 U/L (0-31); Albumin Level 4.5 g/dL (3.5-5.0); Alkaline Phosphatase 113 U/L (39-117); Anion Gap 19 (12-20); Aspartate Amino Transferase 32 U/L (5-31); Bilirubin Total 0.3 mg/dL (0.0-1.0); Blood Urea Nitrogen 11 mg/dL (9-16); Calcium 9.7 mg/dL (8.4-10.2); Carbon Dioxide 19 mmol/L (22-29); Chloride 104 mmol/L (96-108); Estimated Glomerular Filt Rate > 60; Glucose Random 103 mg/dL (60-115); Potassium 5.8 mmol/L (3.3-5.1); Sodium 136 mmol/L (135-145); Total Protein 7.4 g/dL (6.5-8.0)
[2022-08-01 13:15] LABS: Estimated Average Glucose 100 mg/dL; Hemoglobin A1c % 5.1 %
== END 2022-08-01 10:29 | disposition home or self-care (01) ==
LOC: HO.LAB 10:28
PROVIDERS: PCP Internal Medicine; Visit Provider Psychiatry & Neurology Psychiatry
DX: F31.11 Bipolar disorder, current episode manic without psychotic features, mild (principal); Z79.899 Other long term (current) drug therapy
CPT/HCPCS: 36415; 80053; 80178; 83036; 85025; 93005

== ENCOUNTER 2022-08-13 06:03 | Day surgery (SDC) | payer MEDICARE, MEDICAID, SELFPAY ==
--- NOTE | 2022-08-13 06:25 | HO.ANESPROP2 ---
[facility] Active Problems Active Problems: All Active Problems (Updated 05/20/22 @ 11:08 by Bashir Tadeo MD) Diarrhea (Acute) Hyperkalemia (Acute) Shortness of breath (Acute) Hypercholesterolemia (Acute) Left foot pain (Acute) Tinea pedis (Acute) Left foot pain (Acute) Preoperative clearance (Acute) Hypothyroid (Acute) Schizoaffective disorder, bipolar type (Acute) Past Medical History Medical History Depression Elevated cholesterol Hip fracture requiring operative repair Hypercholesterolemia Hypothyroid Liver laceration Liver problem Schizoaffective disorder, bipolar type Family History Family History Mother No problems noted. Father No problems noted. Family history of problems with anesthesia: No Surgical History Surgical History H/O rhinoplasty History of hip surgery History of tracheostomy Status post aortic coarctation stent placement History of Problems with Anesthesia: No Social History Social History Housing: House Are you a primary customer care team coach to a significant other at home: No Do you presently have visiting nurse or other home services: No Alcohol intake: never Patient Tobacco Use Status: Former Tobacco user e-Cigarette/Vaping Use: Never Used Second Hand Smoke Exposure: No Advance Directives: No Advance Directives Information Provided: Yes service: No Current occupational status: disabled Cognitive needs: No Hearing needs: No Vision needs: Yes (Glasses) Meds Allergies Allergy/AdvReac Type Severity Reaction Status Date / Time Sulfa (Sulfonamide Allergy Mild UNKNOWN Verified 05/20/22 10:26 Antibiotics) Home Medications Medication Instructions Recorded Confirmed Last Taken Type atorvastatin 20 mg tablet 1 tab PO DAILY 09/04/20 11/26/21 Unknown History donepezil 10 mg tablet 1 tab PO DAILY 09/04/20 11/26/21 Unknown History fluvoxamine 25 mg tablet mg PO 09/04/20 11/26/21 Unknown History levothyroxine 112 mcg tablet 1 tab PO DAILY 09/04/20 11/26/21 Unknown History lithium carbonate 150 mg capsule 1 cap PO BID 09/04/20 11/26/21 Unknown History olanzapine 10 mg tablet mg PO 09/04/20 11/26/21 01/16/21 History benztropine 1 mg tablet 1 mg PO BID 02/11/21 11/26/21 Unknown History gabapentin 100 mg capsule 100 mg PO TID 02/11/21 11/26/21 Unknown History lithium carbonate 450 mg 450 mg PO BID 02/11/21 11/26/21 Unknown History tablet,extended release lorazepam 1 mg tablet 1 mg PO QID PRN 02/11/21 11/26/21 Unknown History omeprazole 40 mg capsule,delayed 40 mg PO DAILY 02/11/21 11/26/21 Unknown History release Exam Exam Date and Time: August 13, [id number] Airway Mallampati Class: II TM Dist: >3cm Neck ROM: Full Heart: rrr Lungs: cta Assessment and Plan Assessment Anesthesia Assessment: Anesthesia Plan Discussed and Chart Reviewed Final Anesthetic Review Family History of Problems with Anesthesia: No History of Problems with Anesthesia: No NPO: Yes ASA Class: III Final Preanesthetic Review: No Changes in Pt Med Stat, Meds/Allgs Chart Reviewed and Consent Obtained/Reviewed Patient Risk: Intermediate Procedure Risk: Intermediate Anesthetic Plan Anesthetic Plan: GA Disposition: Standard PACU
[2022-08-13 06:36] VITALS: BP 152/71; PULSE 91; RESP 20; TEMP 36.6; O2SAT 97; BMI 29.5
[2022-08-13 06:42] LABS: COVID-19 Test Negative (Negative)
--- NOTE | 2022-08-13 06:58 | MHC.SHP ---
Pre-Procedural Eval Section A Date of Service: 08/13/22 Changes since office visit: Yes Patient answered all questions; No Cold of Flu in the past 2 weeks, No New Medical Problems and No Changes in Medication Section B Chief Complaint: Major depressive disorder, recurrent, severe with Details of Present Illness: recurrent depression Relevant Social History: None Allergies: Allergies Allergy/AdvReac Type Severity Reaction Status Date / Time Sulfa (Sulfonamide Allergy Mild UNKNOWN Verified 05/20/22 10:26 Antibiotics) Review of Systems Sugical H&P ROS: Negative: Constitution, Cardiovascular and Respiratory and Yes, Specify: Psychiatric (PI) Exam Surgical H&P Exam: Normal: Heart and Normal: Lungs Plan Diagnosis/Plan: Unchanged I have reviewed the history and physical and performed a pertinent physical examination on my patient. No changes have occurred unless specified.
--- NOTE | 2022-08-13 07:16 | HO.ECTPROC ---
ECT Procedure Note Diagnosis/Treatment Date of Service: 08/13/22 Diagnosis: Schizoaffective Disorder Previous ECT Date: 07/02/22 Treatment: Maintenance Interval Clinical Notes: pt with depression and PI no si feels ect helpful refusing clozapine at this pt ECT Settings Device: THYMATRON DGx Electrode Placement: Rt temporal/ Lt frontal Program/Pulse Width: 0.50 Energy Percent: 95 Seizure Duration By EEG (in seconds): 38 Medications Administration General Anesthetic: Etomidate (16) Muscle Relaxant: Succinylcholine (100) Ancillary Medications Analgesics: Torodol - Pre ECT Anti-emetics: Zofran - Pre ECT Miscillaneous Medications: Midazolam (2) Airway Management Airway Management: Bag Mask Ventilation Treatment Recommendations No Changes Recommended: No change Notes: f/u tx approx 3 wks Pt Tolerated Procedure w/o Issue: Yes
[2022-08-13 07:18] VITALS: BP 133/62; PULSE 57; RESP 23; TEMP 37.3; O2SAT 99
[2022-08-13 07:23] VITALS: BP 99/54; PULSE 66; RESP 19; O2SAT 96
[2022-08-13 07:28] VITALS: BP 119/69; PULSE 73; RESP 12; O2SAT 73
[2022-08-13 07:33] VITALS: BP 114/63; PULSE 73; RESP 15; O2SAT 99
[2022-08-13 07:48] VITALS: BP 105/58; PULSE 79; RESP 21; O2SAT 96
== END 2022-08-13 08:25 | disposition home or self-care (01) ==
PROVIDERS: PCP Internal Medicine; Visit Provider Psychiatry & Neurology Psychiatry
PROC: (CPT 90870; principal; 2022-08-13 08:00)
DX: F25.0 Schizoaffective disorder, bipolar type (principal); E03.9 Hypothyroidism, unspecified; E78.00 Pure hypercholesterolemia, unspecified; E87.5 Hyperkalemia; Z88.2 Allergy status to sulfonamides; Z20.822 Contact with and (suspected) exposure to COVID-19
CPT/HCPCS: 87635; 90870; J0330; J1885; J2250; J2405

== ENCOUNTER 2022-09-02 09:02 | Outpatient (REF) | payer MEDICARE, MEDICAID, SELFPAY ==
[2022-09-02 10:34] LABS: Anion Gap 14 (12-20); Blood Urea Nitrogen 9 mg/dL (9-16); Calcium 9.7 mg/dL (8.4-10.2); Carbon Dioxide 24 mmol/L (22-29); Chloride 105 mmol/L (96-108); Cholesterol 177 mg/dL; Estimated Glomerular Filt Rate > 60; Glucose Random 170 mg/dL (60-115); HDL Cholesterol 72 mg/dL; LDL Cholesterol Calculated 96 mg/dl; Potassium 4.4 mmol/L (3.3-5.1); Sodium 139 mmol/L (135-145); Triglycerides 47 mg/dL
== END 2022-09-02 09:03 | disposition home or self-care (01) ==
LOC: HO.LAB 09:02
PROVIDERS: PCP Internal Medicine; Visit Provider Internal Medicine
DX: E78.00 Pure hypercholesterolemia, unspecified (principal); E87.5 Hyperkalemia
CPT/HCPCS: 36415; 80048; 80061

== ENCOUNTER → 2022-09-15 13:43 | Outpatient (BNVA) | payer MEDICARE, MEDICAID, SELFPAY | PROVIDERS: PCP Internal Medicine; Visit Provider Psychiatry & Neurology Psychiatry | DX: F25.0 Schizoaffective disorder, bipolar type (principal) | CPT/HCPCS: 90833; 99212 ==

== ENCOUNTER → 2022-09-25 09:01 | Outpatient (REF) | payer MEDICARE, MEDICAID, SELFPAY ==
--- NOTE | 2022-09-25 09:06 | ECG_ITS ---
Test Reason : palpitations Blood Pressure : / mmHG Vent. Rate : 076 BPM Atrial Rate : 076 BPM P-R Int : 162 ms QRS Dur : 098 ms QT Int : 406 ms P-R-T Axes : 057 001 032 degrees QTc Int : 456 ms Normal sinus rhythm Low voltage QRS Borderline ECG When compared with ECG of 01-AUG-2022 10:40, No significant change was found Referred By: Jose Carlos Alvarez Electronically Signed By:LEDY GARCIA MD
== END ==
LOC: HO.CARD 09:01
PROVIDERS: PCP Internal Medicine; Visit Provider Psychiatry & Neurology Psychiatry
DX: R00.2 Palpitations (principal); F25.0 Schizoaffective disorder, bipolar type
CPT/HCPCS: 93005

== ENCOUNTER 2022-09-26 05:59 | Day surgery (SDC) | payer MEDICARE, MEDICAID, SELFPAY ==
[2022-09-26] VITALS (7 sets, daily range): BP systolic 105–146; BP diastolic 51–71; PULSE 63–102; RESP 12–21; TEMP 36.1–37.1; O2SAT 95–100; BMI 29.7
[2022-09-26 06:36] LABS: COVID-19 Test Negative (Negative)
--- NOTE | 2022-09-26 06:43 | HO.ANESPROP2 ---
ON LICENSE OF [facility] Active Problems Active Problems: All Active Problems (Updated 09/24/22 @ 15:59 by Jose Carlos Alvarez MD) Palpitation (Acute) Diarrhea (Acute) Hyperkalemia (Acute) Shortness of breath (Acute) Hypercholesterolemia (Acute) Left foot pain (Acute) Tinea pedis (Acute) Left foot pain (Acute) Preoperative clearance (Acute) Hypothyroid (Acute) Schizoaffective disorder, bipolar type (Acute) Past Medical History Medical History Depression Elevated cholesterol Hip fracture requiring operative repair Hypercholesterolemia Hypothyroid Liver laceration Liver problem Schizoaffective disorder, bipolar type Family History Family History Mother No problems noted. Father No problems noted. Family history of problems with anesthesia: No Surgical History Surgical History H/O rhinoplasty History of hip replacement History of hip surgery History of tracheostomy Status post aortic coarctation stent placement History of Problems with Anesthesia: No Social History Social History Housing: House Are you a primary career guidance counselor to a significant other at home: No Do you presently have visiting nurse or other home services: No Alcohol intake: never Patient Tobacco Use Status: Former Tobacco user e-Cigarette/Vaping Use: Never Used Second Hand Smoke Exposure: No Advance Directives: No Advance Directives Information Provided: Yes service: No Current occupational status: disabled Cognitive needs: No Hearing needs: No Vision needs: Yes (Glasses) Meds Allergies Allergy/AdvReac Type Severity Reaction Status Date / Time Sulfa (Sulfonamide Allergy Mild UNKNOWN Verified 08/26/22 09:43 Antibiotics) Home Medications Medication Instructions Recorded Confirmed Last Taken Type atorvastatin 20 mg tablet 1 tab PO DAILY 09/04/20 11/26/21 Unknown History fluvoxamine 25 mg tablet mg PO 09/04/20 09/15/22 Unknown History levothyroxine 112 mcg tablet 1 tab PO DAILY 09/04/20 09/15/22 Unknown History benztropine 1 mg tablet 1 mg PO BID 02/11/21 09/15/22 Unknown History omeprazole 40 mg capsule,delayed 40 mg PO DAILY 02/11/21 11/26/21 Unknown History release lithium carbonate 450 mg 900 mg PO BEDTIME 08/26/22 09/15/22 Unknown History tablet,extended release Exam Exam Date and Time: September 26, 2022 0643 Height,Weight and Vital Signs: Height 5 ft 3 in Weight 76.204 kg Last Vital Signs Temp 97.7 F 09/26/22 06:22 Pulse 102 H 09/26/22 06:22 Resp 18 09/26/22 06:22 BP 146/71 H 09/26/22 06:22 Pulse Ox 99 09/26/22 06:22 O2 Del Method 09/26/22 06:22 Pertinent Lab Results Pertinent Lab Results: Laboratory Tests 09/26/22 06:11 COVID-19 ([facility]) Negative COVID-19 Clin Com See Note Airway Mallampati Class: II TM Dist: >3cm Neck ROM: Full Heart: rrr Lungs: cta Assessment and Plan Assessment Anesthesia Assessment: Anesthesia Plan Discussed and Chart Reviewed Final Anesthetic Review Family History of Problems with Anesthesia: No History of Problems with Anesthesia: No NPO: Yes ASA Class: III Final Preanesthetic Review: No Changes in Pt Med Stat, Meds/Allgs Chart Reviewed and Consent Obtained/Reviewed Patient Risk: Intermediate Procedure Risk: Intermediate Anesthetic Plan Anesthetic Plan: GA Disposition: Standard PACU
--- NOTE | 2022-09-26 07:14 | MHC.SHP ---
Pre-Procedural Eval Section A Date of Service: 09/26/22 Changes since office visit: Yes Patient answered all questions; No Cold of Flu in the past 2 weeks, No New Medical Problems and No Changes in Medication Section B Chief Complaint: depression Details of Present Illness: recurrent depression Relevant Social History: None Medical History: Significant History (ongoing ect /hx aortic rupture ) Allergies: Allergies Allergy/AdvReac Type Severity Reaction Status Date / Time Sulfa (Sulfonamide Allergy Mild UNKNOWN Verified 08/26/22 09:43 Antibiotics) Review of Systems Sugical H&P ROS: Negative: Constitution and Respiratory and Yes, Specify: Cardiovascular (palpitation) and Psychiatric (PI) Exam Surgical H&P Exam: Normal: Heart (rr no murmur) and Normal: Lungs (clear) Plan Diagnosis/Plan: Unchanged I have reviewed the history and physical and performed a pertinent physical examination on my patient. No changes have occurred unless specified. ekg reviewed no change
--- NOTE | 2022-09-26 07:17 | HO.ECTPROC ---
ECT Procedure Note Diagnosis/Treatment Date of Service: 09/26/22 Diagnosis: Schizoaffective Disorder Previous ECT Date: 07/02/22 Treatment: Maintenance Interval Clinical Notes: pt with depression and PI no si feels ect helpful refusing clozapine at this pt ECT Settings Device: THYMATRON DGx Electrode Placement: Rt temporal/ Lt frontal Program/Pulse Width: 0.50 Energy Percent: 100 Seizure Duration By EEG (in seconds): 52 Medications Administration General Anesthetic: Etomidate (16) Muscle Relaxant: Succinylcholine (100) Ancillary Medications Analgesics: Torodol - Pre ECT Anti-emetics: Zofran - Pre ECT Miscillaneous Medications: Propofol (30) and Midazolam (2) Airway Management Airway Management: Bag Mask Ventilation Treatment Recommendations No Changes Recommended: No change Notes: f/u tx approx 3 wks Pt Tolerated Procedure w/o Issue: Yes
== END 2022-09-26 08:30 | disposition home or self-care (01) ==
PROVIDERS: PCP Internal Medicine; Visit Provider Psychiatry & Neurology Psychiatry
PROC: (CPT 90870; principal; 2022-09-26 07:30)
DX: F25.0 Schizoaffective disorder, bipolar type (principal); E03.9 Hypothyroidism, unspecified; E87.5 Hyperkalemia; E78.00 Pure hypercholesterolemia, unspecified; Z96.649 Presence of unspecified artificial hip joint; Z79.899 Other long term (current) drug therapy; Z88.2 Allergy status to sulfonamides; Z87.891 Personal history of nicotine dependence; Z20.822 Contact with and (suspected) exposure to COVID-19
CPT/HCPCS: 87635; 90870; J0330; J1885; J2250; J2405

== ENCOUNTER 2022-10-08 06:03 | Day surgery (SDC) | payer MEDICARE, MEDICAID, SELFPAY ==
[2022-10-08] VITALS (7 sets, daily range): BP systolic 106–149; BP diastolic 54–76; PULSE 51–93; RESP 13–20; TEMP 36.8–37.3; O2SAT 95–100; BMI 31.6
[2022-10-08 06:39] LABS: COVID-19 Test Negative (Negative); IDNOW Serial# 16C4AD1C
--- NOTE | 2022-10-08 07:02 | MHC.SHP ---
Pre-Procedural Eval Section A Date of Service: 10/08/22 The patient is an INPATIENT: No Changes since office visit: Yes Cold of Flu in the past 2 weeks and Yes Patient answered all questions; No New Medical Problems and No Changes in Medication Section B Chief Complaint: depression disorder Details of Present Illness: recurrent depression Relevant Social History: None Medical History: Significant History (ongoing ect /hx aortic rupture ) Allergies: Allergies Allergy/AdvReac Type Severity Reaction Status Date / Time Sulfa (Sulfonamide Allergy Mild UNKNOWN Verified 08/26/22 09:43 Antibiotics) Review of Systems Sugical H&P ROS: Negative: Constitution and Respiratory and Yes, Specify: Cardiovascular (palpitation) and Psychiatric (PI ongoing) Exam Surgical H&P Exam: Normal: Heart (rr no murmur) and Normal: Lungs (clear) Plan Diagnosis/Plan: Unchanged I have reviewed the history and physical and performed a pertinent physical examination on my patient. No changes have occurred unless specified.
--- NOTE | 2022-10-08 07:05 | P.CONAN_ITS ---
[facility] Active Problems Active Problems: All Active Problems (Updated 09/24/22 @ 15:59 by Jose Carlos Alvarez MD) Palpitation (Acute) Diarrhea (Acute) Hyperkalemia (Acute) Shortness of breath (Acute) Hypercholesterolemia (Acute) Left foot pain (Acute) Tinea pedis (Acute) Left foot pain (Acute) Preoperative clearance (Acute) Hypothyroid (Acute) Schizoaffective disorder, bipolar type (Acute) Past Medical History Medical History Depression Elevated cholesterol Hip fracture requiring operative repair Hypercholesterolemia Hypothyroid Liver laceration Liver problem Schizoaffective disorder, bipolar type Family History Family History Mother No problems noted. Father No problems noted. Family history of problems with anesthesia: No Surgical History Surgical History H/O rhinoplasty History of hip replacement History of hip surgery History of tracheostomy Status post aortic coarctation stent placement History of Problems with Anesthesia: No Social History Social History Housing: House Are you a primary healthcare administration internship to a significant other at home: No Do you presently have visiting nurse or other home services: No Alcohol intake: never Patient Tobacco Use Status: Former Tobacco user e-Cigarette/Vaping Use: Never Used Second Hand Smoke Exposure: No Advance Directives: No Advance Directives Information Provided: Yes service: No Current occupational status: disabled Cognitive needs: No Hearing needs: No Vision needs: Yes (Glasses) Meds Allergies Allergy/AdvReac Type Severity Reaction Status Date / Time Sulfa (Sulfonamide Allergy Mild UNKNOWN Verified 08/26/22 09:43 Antibiotics) Home Medications Medication Instructions Recorded Confirmed Last Taken Type atorvastatin 20 mg tablet 1 tab PO DAILY 09/04/20 11/26/21 Unknown History fluvoxamine 25 mg tablet mg PO 09/04/20 09/15/22 Unknown History levothyroxine 112 mcg tablet 1 tab PO DAILY 09/04/20 09/15/22 Unknown History benztropine 1 mg tablet 1 mg PO BID 02/11/21 09/15/22 Unknown History omeprazole 40 mg capsule,delayed 40 mg PO DAILY 02/11/21 11/26/21 Unknown History release lithium carbonate 450 mg 900 mg PO BEDTIME 08/26/22 09/15/22 Unknown History tablet,extended release Exam Exam Date and Time: October 08, 2022 07 Height,Weight and Vital Signs: Height 5 ft 3 in Weight 81.193 kg Last Vital Signs Temp 98.7 F 10/08/22 06:41 Pulse 93 10/08/22 06:41 Resp 20 10/08/22 06:41 BP 149/76 H 10/08/22 06:41 Pulse Ox 99 10/08/22 06:41 O2 Del Method 10/08/22 06:41 Pertinent Lab Results Pertinent Lab Results: Laboratory Tests 10/08/22 06:14 COVID-19 ([facility]) Negative COVID-19 Clin Com See Note Airway Mallampati Class: I TM Dist: >3cm Neck ROM: Full Loose/Missing/Broken Teeth: No Heart: RRR Lungs: CTA Assessment and Plan Assessment Anesthesia Assessment: Anesthesia Plan Discussed and Chart Reviewed Final Anesthetic Review Family History of Problems with Anesthesia: No History of Problems with Anesthesia: No NPO: Yes ASA Class: II Final Preanesthetic Review: Meds/Allgs Chart Reviewed, Consent Obtained/Reviewed and Anes Risks/Benef Reviewed Patient Risk: Low Procedure Risk: Intermediate Anesthetic Plan Anesthetic Plan: GA Disposition: Standard PACU
--- NOTE | 2022-10-08 07:18 | HO.ECTPROC ---
ECT Procedure Note Diagnosis/Treatment Date of Service: 10/08/22 Diagnosis: Bipolar disorder Previous ECT Date: 09/26/22 Treatment: Maintenance Interval Clinical Notes: pt with depression and PI no si feels ect helpful refusing clozapine at this pt f/u tx 1 week monitor safety ECT Settings Device: THYMATRON DGx Electrode Placement: Bitemporal Program/Pulse Width: 0.50 Energy Percent: 100 Seizure Duration By EEG (in seconds): 54 Medications Administration General Anesthetic: Etomidate Muscle Relaxant: Succinylcholine Ancillary Medications Analgesics: Torodol - Pre ECT Anti-emetics: Zofran - Pre ECT Miscillaneous Medications: Propofol (30) and Midazolam (2) Airway Management Airway Management: Bag Mask Ventilation Treatment Recommendations No Changes Recommended: No change Notes: f/u tx 1 week Pt Tolerated Procedure w/o Issue: Yes
== END 2022-10-08 08:55 | disposition home or self-care (01) ==
PROVIDERS: PCP Internal Medicine; Visit Provider Psychiatry & Neurology Psychiatry
PROC: (CPT 90870; principal; 2022-10-08 07:00)
DX: F31.9 Bipolar disorder, unspecified (principal); F25.0 Schizoaffective disorder, bipolar type; E03.9 Hypothyroidism, unspecified; E87.5 Hyperkalemia; E78.00 Pure hypercholesterolemia, unspecified; Z79.899 Other long term (current) drug therapy; Z88.2 Allergy status to sulfonamides; Z20.822 Contact with and (suspected) exposure to COVID-19; Z87.891 Personal history of nicotine dependence
CPT/HCPCS: 87635; 90870; J0330; J1885; J2250; J2405

== ENCOUNTER 2022-10-22 06:02 | Day surgery (SDC) | payer MEDICARE, MEDICAID, SELFPAY ==
[2022-10-22] VITALS (7 sets, daily range): BP systolic 111–132; BP diastolic 50–72; PULSE 66–80; RESP 16–18; TEMP 36.9–37.2; O2SAT 95–100; BMI 30.2
[2022-10-22 06:42] LABS: IDNOW Serial# 9DB6401D
[2022-10-22 06:43] LABS: COVID-19 Test Negative (Negative)
--- NOTE | 2022-10-22 07:05 | P.CONAN_ITS ---
FORMERLY [facility], LATER [facility] Active Problems Active Problems: All Active Problems (Updated 09/24/22 @ 15:59 by Jose Carlos Alvarez MD) Palpitation (Acute) Diarrhea (Acute) Hyperkalemia (Acute) Shortness of breath (Acute) Hypercholesterolemia (Acute) Left foot pain (Acute) Tinea pedis (Acute) Left foot pain (Acute) Preoperative clearance (Acute) Hypothyroid (Acute) Schizoaffective disorder, bipolar type (Acute) Past Medical History Medical History Depression Elevated cholesterol Hip fracture requiring operative repair Hypercholesterolemia Hypothyroid Liver laceration Liver problem Schizoaffective disorder, bipolar type Family History Family History Mother No problems noted. Father No problems noted. Family history of problems with anesthesia: No Surgical History Surgical History H/O rhinoplasty History of hip replacement History of hip surgery History of tracheostomy Status post aortic coarctation stent placement History of Problems with Anesthesia: No Social History Social History Housing: House Are you a primary health care recruiter to a significant other at home: No Do you presently have visiting nurse or other home services: No Alcohol intake: never Patient Tobacco Use Status: Former Tobacco user e-Cigarette/Vaping Use: Never Used Second Hand Smoke Exposure: No Are you DNR?: No Advance Directives: No Advance Directives Information Provided: Yes service: No Current occupational status: disabled Cognitive needs: No Hearing needs: No Vision needs: Yes (Glasses) Meds Allergies Allergy/AdvReac Type Severity Reaction Status Date / Time Sulfa (Sulfonamide Allergy Mild UNKNOWN Verified 08/26/22 09:43 Antibiotics) Home Medications Medication Instructions Recorded Confirmed Last Taken Type atorvastatin 20 mg tablet 1 tab PO DAILY 09/04/20 11/26/21 Unknown History fluvoxamine 25 mg tablet mg PO 09/04/20 09/15/22 Unknown History levothyroxine 112 mcg tablet 1 tab PO DAILY 09/04/20 09/15/22 Unknown History benztropine 1 mg tablet 1 mg PO BID 02/11/21 09/15/22 Unknown History omeprazole 40 mg capsule,delayed 40 mg PO DAILY 02/11/21 11/26/21 Unknown History release lithium carbonate 450 mg 900 mg PO BEDTIME 08/26/22 09/15/22 Unknown History tablet,extended release Exam Exam Date and Time: October 22, 2022 0706 Height,Weight and Vital Signs: Height 5 ft 3 in Weight 77.564 kg Last Vital Signs Temp 98.5 F 10/22/22 06:30 Pulse 80 10/22/22 06:30 Resp 18 10/22/22 06:30 BP 132/72 10/22/22 06:30 Pulse Ox 97 10/22/22 06:30 O2 Del Method 10/22/22 06:30 Pertinent Lab Results Pertinent Lab Results: Laboratory Tests 10/22/22 06:13 COVID-19 ([facility]) Negative COVID-19 Clin Com See Note Airway Mallampati Class: II TM Dist: >3cm Neck ROM: Full Assessment and Plan Final Anesthetic Review Family History of Problems with Anesthesia: No History of Problems with Anesthesia: No NPO: Yes ASA Class: II Final Preanesthetic Review: No Changes in Pt Med Stat, Meds/Allgs Chart Reviewed, Consent Obtained/Reviewed and Anes Risks/Benef Reviewed Patient Risk: Low Procedure Risk: Low Anesthetic Plan Anesthetic Plan: GA Disposition: Standard PACU
--- NOTE | 2022-10-22 07:06 | MHC.SHP ---
Pre-Procedural Eval Section A Date of Service: 10/22/22 The patient is an INPATIENT: No Changes since office visit: Yes Patient answered all questions; No Cold of Flu in the past 2 weeks, No New Medical Problems and No Changes in Medication Section B Chief Complaint: depression Details of Present Illness: recurrent depression Relevant Social History: None Medical History: Significant History (ongoing ect /hx aortic rupture ) Allergies: Allergies Allergy/AdvReac Type Severity Reaction Status Date / Time Sulfa (Sulfonamide Allergy Mild UNKNOWN Verified 08/26/22 09:43 Antibiotics) Review of Systems Sugical H&P ROS: Negative: Constitution, Cardiovascular and Respiratory and Yes, Specify: Psychiatric (PI ongoing) Exam Surgical H&P Exam: Normal: Heart (rr no murmur) and Normal: Lungs (clear) Plan Diagnosis/Plan: Unchanged I have reviewed the history and physical and performed a pertinent physical examination on my patient. No changes have occurred unless specified.
--- NOTE | 2022-10-22 07:23 | HO.ECTPROC ---
ECT Procedure Note Diagnosis/Treatment Date of Service: 10/22/22 Diagnosis: Schizoaffective Disorder Previous ECT Date: 10/08/22 Treatment: Maintenance Interval Clinical Notes: pt with depression and PI better with bt has st memory difficulty but tolerates feels this very helpful ECT Settings Device: THYMATRON DGx Electrode Placement: Bitemporal Program/Pulse Width: 0.50 Energy Percent: 100 Seizure Duration By EEG (in seconds): 50 Medications Administration General Anesthetic: Etomidate (16) Muscle Relaxant: Succinylcholine (100) Ancillary Medications Analgesics: Torodol - Pre ECT Anti-emetics: Zofran - Pre ECT Miscillaneous Medications: Propofol (30) and Midazolam (2) Airway Management Airway Management: Bag Mask Ventilation Treatment Recommendations No Changes Recommended: No change Notes: f/u tx 2 encourage clozaril Pt Tolerated Procedure w/o Issue: Yes
--- NOTE | 2022-10-22 07:32 | HO.ECTPROC ---
ECT Procedure Note Diagnosis/Treatment Date of Service: 10/22/22 Diagnosis: Schizoaffective Disorder Treatment: Maintenance Interval Clinical Notes: Patient feels ECT Settings Device: THYMATRON DGx
== END 2022-10-22 08:30 | disposition home or self-care (01) ==
PROVIDERS: PCP Internal Medicine; Visit Provider Psychiatry & Neurology Psychiatry
PROC: (CPT 90870; principal; 2022-10-22 07:30)
DX: F25.0 Schizoaffective disorder, bipolar type (principal); E87.5 Hyperkalemia; R06.02 Shortness of breath; E78.00 Pure hypercholesterolemia, unspecified; Z88.2 Allergy status to sulfonamides; Z20.822 Contact with and (suspected) exposure to COVID-19; Z87.891 Personal history of nicotine dependence
CPT/HCPCS: 87635; 90870; J0330; J1885; J2250; J2405

== ENCOUNTER 2022-10-31 14:37 | Outpatient (REF) | payer MEDICARE, MEDICAID, SELFPAY ==
[2022-10-31 15:00] LABS: MANUAL DIFF FLAG NO
[2022-10-31 15:06] LABS: Basophils Percent Auto 0.6 % (0-2); Eosinophils Absolute Auto 0.1 X10*3/uL (0.0-0.4); Eosinophils Percent Auto 1.8 % (0-4); Hemoglobin 11.9 g/dl (12.0-16.0); Imm Gran Abs Auto 0.01 X10*3/uL (0.00-0.03); Imm Gran Pct Auto 0.1 % (0.0-0.4); Lymphocytes Absolute Auto 1.4 X10*3/uL (1.2-4.9); Lymphocytes Percent Auto 20.9 % (20-40); Mean Corpuscular HGB Conc 32.2 g/dl (31.0-35.0); Mean Corpuscular Hemoglobin 27.9 pg (27.0-33.0); Mean Corpuscular Volume 86.9 fL (80.0-98.0); Mean Platelet Volume 9.8 fL (9.4-12.3); Monocytes Absolute Auto 0.4 X10*3/uL (0.1-1.2); Monocytes Percent Auto 5.6 % (2-11); Neutrophils Absolute Auto 4.8 x10*3/uL (2.0-8.3); Platelet Count 286 X10*3/uL (160-400); Red Blood Count 4.26 X10*6/uL (4.20-5.50); Red Cell Distribution Width 13.6 % (11.0-16.0); White Blood Count 6.8 X10*3/uL (4.8-10.8)
[2022-10-31 15:25] LABS: Lithium 0.53 mmol/L (0.60-1.20)
[2022-10-31 15:34] LABS: Estimated Average Glucose 123 mg/dL; Hemoglobin A1c % 5.9 %
[2022-10-31 15:55] LABS: Alanine Aminotransferase 14 U/L (0-31); Albumin Level 4.6 g/dL (3.5-5.0); Alkaline Phosphatase 105 U/L (39-117); Anion Gap 12 (12-20); Aspartate Amino Transferase 17 U/L (5-31); Bilirubin Total 0.3 mg/dL (0.0-1.0); Blood Urea Nitrogen 15 mg/dL (9-16); Calcium 9.6 mg/dL (8.4-10.2); Carbon Dioxide 28 mmol/L (22-29); Chloride 104 mmol/L (96-108); Estimated Glomerular Filt Rate 47; Glucose Random 108 mg/dL (60-115); Potassium 4.7 mmol/L (3.3-5.1); Sodium 139 mmol/L (135-145); TSH reflex Free T4 5.38 uIU/mL (0.32-4.0); Total Protein 7.3 g/dL (6.5-8.0)
== END 2022-10-31 14:38 | disposition home or self-care (01) ==
LOC: HO.LAB 14:37
PROVIDERS: Visit Provider Psychiatry & Neurology Psychiatry
DX: F25.0 Schizoaffective disorder, bipolar type (principal); Z79.899 Other long term (current) drug therapy
CPT/HCPCS: 36415; 80053; 80178; 83036; 84146; 84439; 84443; 85025; 90833; 99212

== ENCOUNTER 2022-11-07 09:10 | Outpatient (REF) | payer MEDICARE, MEDICAID, SELFPAY ==
[2022-11-07 09:35] LABS: MANUAL DIFF FLAG NO
[2022-11-07 10:03] LABS: Basophils Percent Auto 0.5 % (0-2); Eosinophils Absolute Auto 0.1 X10*3/uL (0.0-0.4); Eosinophils Percent Auto 1.6 % (0-4); Hematocrit 41.5 % (37.0-47.0); Hemoglobin 12.7 g/dl (12.0-16.0); Imm Gran Abs Auto 0.03 X10*3/uL (0.00-0.03); Imm Gran Pct Auto 0.4 % (0.0-0.4); Lymphocytes Absolute Auto 1.1 X10*3/uL (1.2-4.9); Lymphocytes Percent Auto 14.1 % (20-40); Mean Corpuscular HGB Conc 30.6 g/dl (31.0-35.0); Mean Corpuscular Hemoglobin 27.4 pg (27.0-33.0); Mean Corpuscular Volume 89.6 fL (80.0-98.0); Mean Platelet Volume 10.1 fL (9.4-12.3); Monocytes Absolute Auto 0.5 X10*3/uL (0.1-1.2); Monocytes Percent Auto 6.4 % (2-11); Neutrophils Absolute Auto 5.8 x10*3/uL (2.0-8.3); Platelet Count 268 X10*3/uL (160-400); Red Blood Count 4.63 X10*6/uL (4.20-5.50); White Blood Count 7.5 X10*3/uL (4.8-10.8)
== END 2022-11-07 09:11 | disposition home or self-care (01) ==
LOC: HO.LAB 09:10
PROVIDERS: PCP Internal Medicine; Visit Provider Psychiatry & Neurology Psychiatry
DX: F25.0 Schizoaffective disorder, bipolar type (principal)
CPT/HCPCS: 36415; 85025

== ENCOUNTER 2022-11-13 08:35 | Outpatient (REF) | payer MEDICARE, MEDICAID, SELFPAY ==
[2022-11-13 08:42] LABS: MANUAL DIFF FLAG NO
[2022-11-13 09:05] LABS: Basophils Absolute Auto 0.1 X10*3/uL (0.0-0.2); Eosinophils Absolute Auto 0.2 X10*3/uL (0.0-0.4); Eosinophils Percent Auto 2.3 % (0-4); Hematocrit 40.5 % (37.0-47.0); Hemoglobin 12.3 g/dl (12.0-16.0); Imm Gran Abs Auto 0.02 X10*3/uL (0.00-0.03); Imm Gran Pct Auto 0.3 % (0.0-0.4); Lymphocytes Absolute Auto 1.6 X10*3/uL (1.2-4.9); Lymphocytes Percent Auto 21.3 % (20-40); Mean Corpuscular HGB Conc 30.4 g/dl (31.0-35.0); Mean Platelet Volume 10.3 fL (9.4-12.3); Monocytes Absolute Auto 0.5 X10*3/uL (0.1-1.2); Monocytes Percent Auto 6.7 % (2-11); Neutrophils Percent Auto 68.4 % (45-73); Platelet Count 236 X10*3/uL (160-400); Red Blood Count 4.55 X10*6/uL (4.20-5.50); Red Cell Distribution Width 14.2 % (11.0-16.0); White Blood Count 7.4 X10*3/uL (4.8-10.8)
== END 2022-11-13 08:36 | disposition home or self-care (01) ==
LOC: HO.LAB 08:35
PROVIDERS: PCP Internal Medicine; Visit Provider Psychiatry & Neurology Psychiatry
DX: F25.0 Schizoaffective disorder, bipolar type (principal)
CPT/HCPCS: 36415; 85025

== ENCOUNTER 2022-11-21 09:04 | Outpatient (REF) | payer MEDICARE, MEDICAID, SELFPAY ==
[2022-11-21 09:15] LABS: MANUAL DIFF FLAG NO
[2022-11-21 09:29] LABS: Basophils Percent Auto 0.6 % (0-2); Eosinophils Absolute Auto 0.2 X10*3/uL (0.0-0.4); Eosinophils Percent Auto 2.6 % (0-4); Hemoglobin 12.1 g/dl (12.0-16.0); Imm Gran Abs Auto 0.02 X10*3/uL (0.00-0.03); Imm Gran Pct Auto 0.3 % (0.0-0.4); Lymphocytes Absolute Auto 1.2 X10*3/uL (1.2-4.9); Lymphocytes Percent Auto 18.7 % (20-40); Mean Corpuscular HGB Conc 31.8 g/dl (31.0-35.0); Mean Corpuscular Hemoglobin 27.8 pg (27.0-33.0); Mean Corpuscular Volume 87.4 fL (80.0-98.0); Mean Platelet Volume 9.9 fL (9.4-12.3); Monocytes Absolute Auto 0.5 X10*3/uL (0.1-1.2); Monocytes Percent Auto 6.8 % (2-11); Neutrophils Absolute Auto 4.7 x10*3/uL (2.0-8.3); Platelet Count 226 X10*3/uL (160-400); Red Blood Count 4.35 X10*6/uL (4.20-5.50); Red Cell Distribution Width 14.5 % (11.0-16.0); White Blood Count 6.6 X10*3/uL (4.8-10.8)
== END 2022-11-21 09:05 | disposition home or self-care (01) ==
LOC: HO.LAB 09:04
PROVIDERS: PCP Internal Medicine; Visit Provider Psychiatry & Neurology Psychiatry
DX: F25.0 Schizoaffective disorder, bipolar type (principal); Z79.899 Other long term (current) drug therapy
CPT/HCPCS: 36415; 85025

== ENCOUNTER 2022-11-28 08:52 | Outpatient (REF) | payer MEDICARE, MEDICAID, SELFPAY ==
[2022-11-28 09:01] LABS: MANUAL DIFF FLAG NO
[2022-11-28 09:33] LABS: Basophils Absolute Auto 0.1 X10*3/uL (0.0-0.2); Basophils Percent Auto 0.6 % (0-2); Eosinophils Absolute Auto 0.2 X10*3/uL (0.0-0.4); Eosinophils Percent Auto 2.4 % (0-4); Hematocrit 39.4 % (37.0-47.0); Hemoglobin 12.4 g/dl (12.0-16.0); Imm Gran Abs Auto 0.02 X10*3/uL (0.00-0.03); Imm Gran Pct Auto 0.2 % (0.0-0.4); Lymphocytes Absolute Auto 1.2 X10*3/uL (1.2-4.9); Lymphocytes Percent Auto 14.5 % (20-40); Mean Corpuscular HGB Conc 31.5 g/dl (31.0-35.0); Mean Corpuscular Hemoglobin 27.5 pg (27.0-33.0); Mean Corpuscular Volume 87.4 fL (80.0-98.0); Mean Platelet Volume 10.4 fL (9.4-12.3); Monocytes Absolute Auto 0.6 X10*3/uL (0.1-1.2); Monocytes Percent Auto 7.6 % (2-11); Neutrophils Absolute Auto 6.2 x10*3/uL (2.0-8.3); Neutrophils Percent Auto 74.7 % (45-73); Platelet Count 260 X10*3/uL (160-400); Red Blood Count 4.51 X10*6/uL (4.20-5.50); Red Cell Distribution Width 14.9 % (11.0-16.0); White Blood Count 8.3 X10*3/uL (4.8-10.8)
[2022-11-28 09:48] LABS: Estimated Average Glucose 111 mg/dL; Hemoglobin A1c % 5.5 %
[2022-11-28 10:02] LABS: Alanine Aminotransferase 13 U/L (0-31); Albumin Level 4.8 g/dL (3.5-5.0); Alkaline Phosphatase 86 U/L (39-117); Anion Gap 15 (12-20); Aspartate Amino Transferase 21 U/L (5-31); Bilirubin Total 0.6 mg/dL (0.0-1.0); Blood Urea Nitrogen 18 mg/dL (9-16); Calcium 10.1 mg/dL (8.4-10.2); Carbon Dioxide 24 mmol/L (22-29); Chloride 104 mmol/L (96-108); Estimated Glomerular Filt Rate > 60; Glucose Random 108 mg/dL (60-115); Potassium 4.5 mmol/L (3.3-5.1); Sodium 138 mmol/L (135-145); Total Protein 7.7 g/dL (6.5-8.0)
== END 2022-11-28 08:53 | disposition home or self-care (01) ==
LOC: HO.LAB 08:52
PROVIDERS: PCP Internal Medicine; Visit Provider Psychiatry & Neurology Psychiatry
DX: Z01.818 Encounter for other preprocedural examination (principal); F25.0 Schizoaffective disorder, bipolar type; E03.9 Hypothyroidism, unspecified
CPT/HCPCS: 36415; 80053; 83036; 84443; 85025

== ENCOUNTER 2022-12-03 09:48 | Outpatient (REF) | payer MEDICARE, MEDICAID, SELFPAY ==
--- NOTE | ~2022-12-03 | MM_ITS ---
EXAMINATION: MM SCREENING DIGITAL BREAST TOMOSYNTHESIS, BILATERAL CLINICAL INFORMATION: Screening. Asymptomatic. The lifetime risk of breast cancer based on the Tyrer-Cuzick Model is 6%. COMPARISON: Mammography: 11/21/2021, 11/05/2020, 11/02/2019 TECHNIQUE: Digital breast tomosynthesis is performed in both the craniocaudal and mediolateral oblique views along with computer-aided detection (CAD). Synthesized 2D images are generated from the tomosynthesis. FINDINGS: There are scattered areas of fibroglandular density (ACR BI-RADS breast composition Category b). There are no significant masses, abnormal calcifications, or other abnormalities. Parenchymal pattern is similar to prior studies. There is no developing density or architectural abnormality. The axilla and skin contours are unremarkable. No significant changes. MM/MM tomosynthesis screening BI IMPRESSION: No mammographic evidence of malignancy. ASSESSMENT: BI-RADS 1: Negative RECOMMENDATION: Routine annual mammography screening. This patient's information was entered into a reminder with a target due date for their next mammogram.
== END 2022-12-03 09:49 | disposition home or self-care (01) ==
LOC: HO.MAMMO 09:48
PROVIDERS: PCP Internal Medicine; Visit Provider Internal Medicine
DX: Z12.31 Encounter for screening mammogram for malignant neoplasm of breast (principal)
CPT/HCPCS: 77063; 77067

== ENCOUNTER 2022-12-05 10:28 | Outpatient (REF) | payer MEDICARE, MEDICAID, SELFPAY ==
[2022-12-05 10:36] LABS: MANUAL DIFF FLAG NO
[2022-12-05 10:55] LABS: Basophils Percent Auto 0.5 % (0-2); Eosinophils Absolute Auto 0.2 X10*3/uL (0.0-0.4); Eosinophils Percent Auto 3.1 % (0-4); Hematocrit 38.3 % (37.0-47.0); Imm Gran Abs Auto 0.02 X10*3/uL (0.00-0.03); Imm Gran Pct Auto 0.3 % (0.0-0.4); Lymphocytes Absolute Auto 1.2 X10*3/uL (1.2-4.9); Lymphocytes Percent Auto 16.2 % (20-40); Mean Corpuscular HGB Conc 31.3 g/dl (31.0-35.0); Mean Corpuscular Hemoglobin 27.8 pg (27.0-33.0); Mean Corpuscular Volume 88.9 fL (80.0-98.0); Mean Platelet Volume 10.3 fL (9.4-12.3); Monocytes Absolute Auto 0.7 X10*3/uL (0.1-1.2); Neutrophils Absolute Auto 5.2 x10*3/uL (2.0-8.3); Neutrophils Percent Auto 70.9 % (45-73); Platelet Count 260 X10*3/uL (160-400); Red Blood Count 4.31 X10*6/uL (4.20-5.50); Red Cell Distribution Width 15.5 % (11.0-16.0); White Blood Count 7.3 X10*3/uL (4.8-10.8)
== END 2022-12-05 10:29 | disposition home or self-care (01) ==
LOC: HO.LAB 10:28
PROVIDERS: PCP Internal Medicine; Visit Provider Psychiatry & Neurology Psychiatry
DX: F25.0 Schizoaffective disorder, bipolar type (principal)
CPT/HCPCS: 36415; 85025

== ENCOUNTER 2022-12-12 08:35 | Outpatient (REF) | payer MEDICARE, MEDICAID, SELFPAY ==
[2022-12-12 08:45] LABS: MANUAL DIFF FLAG NO
[2022-12-12 09:14] LABS: Basophils Absolute Auto 0.1 X10*3/uL (0.0-0.2); Basophils Percent Auto 0.6 % (0-2); Eosinophils Absolute Auto 0.2 X10*3/uL (0.0-0.4); Eosinophils Percent Auto 2.6 % (0-4); Hemoglobin 11.7 g/dl (12.0-16.0); Imm Gran Abs Auto 0.02 X10*3/uL (0.00-0.03); Imm Gran Pct Auto 0.3 % (0.0-0.4); Lymphocytes Absolute Auto 1.4 X10*3/uL (1.2-4.9); Mean Corpuscular HGB Conc 31.6 g/dl (31.0-35.0); Mean Corpuscular Hemoglobin 27.7 pg (27.0-33.0); Mean Corpuscular Volume 87.5 fL (80.0-98.0); Mean Platelet Volume 10.7 fL (9.4-12.3); Monocytes Absolute Auto 0.5 X10*3/uL (0.1-1.2); Monocytes Percent Auto 6.4 % (2-11); Neutrophils Absolute Auto 5.8 x10*3/uL (2.0-8.3); Neutrophils Percent Auto 72.1 % (45-73); Platelet Count 248 X10*3/uL (160-400); Red Blood Count 4.23 X10*6/uL (4.20-5.50); Red Cell Distribution Width 15.9 % (11.0-16.0)
== END 2022-12-12 08:36 | disposition home or self-care (01) ==
LOC: HO.LAB 08:35
PROVIDERS: PCP Internal Medicine; Visit Provider Psychiatry & Neurology Psychiatry
DX: F25.0 Schizoaffective disorder, bipolar type (principal)
CPT/HCPCS: 36415; 85025

== ENCOUNTER 2022-12-17 05:48 | Day surgery (SDC) | payer MEDICARE, MEDICAID, SELFPAY ==
[2022-12-17 06:23] VITALS: BP 162/81; PULSE 94; RESP 16; TEMP 36.7; O2SAT 98; BMI 31.1
[2022-12-17 06:34] LABS: COVID-19 Test Negative (Negative); IDNOW Serial# BCCEAD1C
--- NOTE | 2022-12-17 07:10 | MHC.SHP ---
Pre-Procedural Eval Section A Date of Service: 12/17/22 The patient is an INPATIENT: No Changes since office visit: Yes Patient answered all questions; No Cold of Flu in the past 2 weeks, No New Medical Problems and No Changes in Medication Section B Chief Complaint: Major depressive disorder, recurrent, Details of Present Illness: recurrent depression Relevant Social History: None Medical History: Significant History (ongoing ect /hx aortic rupture ) Allergies: Allergies Allergy/AdvReac Type Severity Reaction Status Date / Time Sulfa (Sulfonamide Allergy Mild UNKNOWN Verified 08/26/22 09:43 Antibiotics) Review of Systems Sugical H&P ROS: Negative: Constitution, Cardiovascular and Respiratory and Yes, Specify: Psychiatric (PI ongoing) Exam Surgical H&P Exam: Normal: Heart (rr no murmur) and Normal: Lungs (clear) Plan Diagnosis/Plan: Unchanged I have reviewed the history and physical and performed a pertinent physical examination on my patient. No changes have occurred unless specified. Time Spent With Patient Time: Total time managing care of this patient today ____ minutes.
--- NOTE | 2022-12-17 07:10 | HO.ECTPROC ---
ECT Procedure Note Diagnosis/Treatment Date of Service: 12/17/22 Diagnosis: Schizoaffective Disorder Previous ECT Date: 10/22/22 Treatment: Maintenance Interval Clinical Notes: pt with depression and PI better with bt has st memory difficulty but tolerates feels this helpful has started clozapine Time: Total time managing care of this patient today ____ minutes. ECT Settings Device: THYMATRON DGx Electrode Placement: Bitemporal Program/Pulse Width: 0.50 Energy Percent: 100 Seizure Duration By EEG (in seconds): 62 Medications Administration General Anesthetic: Etomidate (16) Muscle Relaxant: Succinylcholine (100) Ancillary Medications Analgesics: Torodol - Pre ECT Anti-emetics: Zofran - Pre ECT Miscillaneous Medications: Propofol (30) and Midazolam (2) Airway Management Airway Management: Bag Mask Ventilation Treatment Recommendations No Changes Recommended: No change Notes: f/u tx 3 weeks Pt Tolerated Procedure w/o Issue: Yes
[2022-12-17 07:30] VITALS: BP 112/64; PULSE 78; RESP 10; TEMP 37.6; O2SAT 99
[2022-12-17 07:35] VITALS: BP 117/68; PULSE 78; RESP 11; O2SAT 100
[2022-12-17 07:40] VITALS: BP 122/70; PULSE 79; RESP 11; O2SAT 100
[2022-12-17 07:45] VITALS: BP 115/65; PULSE 85; RESP 14; O2SAT 99
--- NOTE | 2022-12-17 07:50 | P.CONAN_ITS ---
FORMERLY [facility] Active Problems Active Problems: All Active Problems (Updated 12/04/22 @ 15:37 by Bashir Tadeo MD) Eczema (Acute) Palpitation (Acute) Diarrhea (Acute) Hyperkalemia (Acute) Shortness of breath (Acute) Hypercholesterolemia (Acute) Left foot pain (Acute) Tinea pedis (Acute) Left foot pain (Acute) Preoperative clearance (Acute) Hypothyroid (Acute) Schizoaffective disorder, bipolar type (Acute) Past Medical History Medical History Depression Elevated cholesterol Hip fracture requiring operative repair Hypercholesterolemia Hypothyroid Liver laceration Liver problem Schizoaffective disorder, bipolar type Family History Family History Mother No problems noted. Father No problems noted. Family history of problems with anesthesia: No Surgical History Surgical History H/O rhinoplasty History of hip replacement History of hip surgery History of tracheostomy Status post aortic coarctation stent placement History of Problems with Anesthesia: No Social History Social History Housing: House Are you a primary child day care center worker to a significant other at home: No Do you presently have visiting nurse or other home services: No Alcohol intake: never Patient Tobacco Use Status: Former Tobacco user e-Cigarette/Vaping Use: Never Used Second Hand Smoke Exposure: No Advance Directives: No Advance Directives Information Provided: Yes service: No Current occupational status: disabled Cognitive needs: No Hearing needs: No Vision needs: Yes (Glasses) Meds Allergies Allergy/AdvReac Type Severity Reaction Status Date / Time Sulfa (Sulfonamide Allergy Mild UNKNOWN Verified 08/26/22 09:43 Antibiotics) Home Medications Medication Instructions Recorded Confirmed Last Taken Type atorvastatin 20 mg tablet 1 tab PO DAILY 09/04/20 11/26/21 Unknown History fluvoxamine 25 mg tablet mg PO 09/04/20 09/15/22 Unknown History levothyroxine 112 mcg tablet 1 tab PO DAILY 09/04/20 09/15/22 Unknown History benztropine 1 mg tablet 1 mg PO BID 02/11/21 09/15/22 Unknown History omeprazole 40 mg capsule,delayed 40 mg PO DAILY 02/11/21 11/26/21 Unknown History release lithium carbonate 450 mg 900 mg PO BEDTIME 08/26/22 09/15/22 Unknown History tablet,extended release Exam Exam Date and Time: December 17, 2022 0750 Height,Weight and Vital Signs: Height 5 ft 2 in Weight 77.111 kg Last Vital Signs Temp 99.6 F 12/17/22 07:30 Pulse 85 12/17/22 07:45 Resp 14 12/17/22 07:45 BP 115/65 12/17/22 07:45 Pulse Ox 99 12/17/22 07:45 O2 Del Method 12/17/22 07:45 O2 Flow Rate 2 12/17/22 07:40 Pertinent Lab Results Pertinent Lab Results: Laboratory Tests 12/17/22 06:13 COVID-19 ([facility]) Negative COVID-19 Clin Com See Note Airway Mallampati Class: II TM Dist: >3cm Neck ROM: Full Assessment and Plan Assessment Anesthesia Assessment: Anesthesia Plan Discussed and Chart Reviewed Final Anesthetic Review Family History of Problems with Anesthesia: No History of Problems with Anesthesia: No NPO: Yes ASA Class: II Final Preanesthetic Review: No Changes in Pt Med Stat, Meds/Allgs Chart Reviewed, Consent Obtained/Reviewed and Anes Risks/Benef Reviewed Patient Risk: Low Procedure Risk: Low Anesthetic Plan Anesthetic Plan: GA Disposition: Standard PACU
[2022-12-17 08:00] VITALS: BP 112/70; PULSE 80; RESP 14; O2SAT 98
== END 2022-12-17 08:31 | disposition home or self-care (01) ==
PROVIDERS: PCP Internal Medicine; Visit Provider Psychiatry & Neurology Psychiatry
PROC: (CPT 90870; principal; 2022-12-17 08:00)
DX: F25.0 Schizoaffective disorder, bipolar type (principal); R41.3 Other amnesia; E87.5 Hyperkalemia; E78.00 Pure hypercholesterolemia, unspecified; E03.9 Hypothyroidism, unspecified; Z79.899 Other long term (current) drug therapy; Z88.2 Allergy status to sulfonamides; Z20.822 Contact with and (suspected) exposure to COVID-19; Z87.891 Personal history of nicotine dependence
CPT/HCPCS: 87635; 90870; J0330; J1885; J2250; J2405

== ENCOUNTER 2022-12-19 09:53 | Outpatient (REF) | payer MEDICARE, MEDICAID, SELFPAY ==
[2022-12-19 10:01] LABS: MANUAL DIFF FLAG NO
[2022-12-19 11:05] LABS: Basophils Absolute Auto 0.1 X10*3/uL (0.0-0.2); Basophils Percent Auto 0.7 % (0-2); Eosinophils Absolute Auto 0.2 X10*3/uL (0.0-0.4); Eosinophils Percent Auto 2.9 % (0-4); Hematocrit 39.1 % (37.0-47.0); Hemoglobin 12.3 g/dl (12.0-16.0); Imm Gran Abs Auto 0.03 X10*3/uL (0.00-0.03); Imm Gran Pct Auto 0.4 % (0.0-0.4); Lymphocytes Absolute Auto 1.4 X10*3/uL (1.2-4.9); Lymphocytes Percent Auto 17.1 % (20-40); Mean Corpuscular HGB Conc 31.5 g/dl (31.0-35.0); Mean Corpuscular Hemoglobin 27.9 pg (27.0-33.0); Mean Corpuscular Volume 88.7 fL (80.0-98.0); Mean Platelet Volume 10.3 fL (9.4-12.3); Monocytes Absolute Auto 0.8 X10*3/uL (0.1-1.2); Monocytes Percent Auto 9.3 % (2-11); Neutrophils Absolute Auto 5.7 x10*3/uL (2.0-8.3); Neutrophils Percent Auto 69.6 % (45-73); Platelet Count 268 X10*3/uL (160-400); Red Blood Count 4.41 X10*6/uL (4.20-5.50); Red Cell Distribution Width 16.3 % (11.0-16.0); White Blood Count 8.2 X10*3/uL (4.8-10.8)
== END 2022-12-19 09:54 | disposition home or self-care (01) ==
LOC: HO.LABR 09:53
PROVIDERS: PCP Internal Medicine; Visit Provider Psychiatry & Neurology Psychiatry
DX: F25.0 Schizoaffective disorder, bipolar type (principal)
CPT/HCPCS: 36415; 85025

== ENCOUNTER 2022-12-25 08:20 | Outpatient (REF) | payer MEDICARE, MEDICAID, SELFPAY ==
[2022-12-25 08:44] LABS: MANUAL DIFF FLAG NO
[2022-12-25 09:42] LABS: Basophils Absolute Auto 0.1 X10*3/uL (0.0-0.2); Basophils Percent Auto 0.8 % (0-2); Eosinophils Absolute Auto 0.2 X10*3/uL (0.0-0.4); Eosinophils Percent Auto 1.9 % (0-4); Hematocrit 38.8 % (37.0-47.0); Hemoglobin 12.1 g/dl (12.0-16.0); Imm Gran Abs Auto 0.02 X10*3/uL (0.00-0.03); Imm Gran Pct Auto 0.3 % (0.0-0.4); Lymphocytes Absolute Auto 1.1 X10*3/uL (1.2-4.9); Lymphocytes Percent Auto 14.5 % (20-40); Mean Corpuscular HGB Conc 31.2 g/dl (31.0-35.0); Mean Corpuscular Hemoglobin 28.3 pg (27.0-33.0); Mean Corpuscular Volume 90.7 fL (80.0-98.0); Mean Platelet Volume 11.6 fL (9.4-12.3); Monocytes Absolute Auto 0.4 X10*3/uL (0.1-1.2); Monocytes Percent Auto 5.7 % (2-11); Neutrophils Percent Auto 76.8 % (45-73); Platelet Count 218 X10*3/uL (160-400); Red Blood Count 4.28 X10*6/uL (4.20-5.50); Red Cell Distribution Width 16.6 % (11.0-16.0); White Blood Count 7.8 X10*3/uL (4.8-10.8)
== END 2022-12-25 08:21 | disposition home or self-care (01) ==
LOC: HO.LABR 08:20
PROVIDERS: PCP Internal Medicine; Visit Provider Psychiatry & Neurology Psychiatry
DX: F25.0 Schizoaffective disorder, bipolar type (principal)
CPT/HCPCS: 36415; 85025

== ENCOUNTER 2023-01-02 09:03 | Outpatient (REF) | payer MEDICARE, MEDICAID, SELFPAY ==
[2023-01-02 09:13] LABS: MANUAL DIFF FLAG NO
[2023-01-02 09:16] LABS: Basophils Absolute Auto 0.1 X10*3/uL (0.0-0.2); Basophils Percent Auto 0.7 % (0-2); Eosinophils Absolute Auto 0.1 X10*3/uL (0.0-0.4); Eosinophils Percent Auto 1.4 % (0-4); Hematocrit 37.1 % (37.0-47.0); Imm Gran Abs Auto 0.02 X10*3/uL (0.00-0.03); Imm Gran Pct Auto 0.2 % (0.0-0.4); Lymphocytes Absolute Auto 1.2 X10*3/uL (1.2-4.9); Lymphocytes Percent Auto 13.7 % (20-40); Mean Corpuscular HGB Conc 32.3 g/dl (31.0-35.0); Mean Corpuscular Hemoglobin 28.8 pg (27.0-33.0); Mean Platelet Volume 9.6 fL (9.4-12.3); Monocytes Absolute Auto 0.4 X10*3/uL (0.1-1.2); Monocytes Percent Auto 4.8 % (2-11); Neutrophils Absolute Auto 6.7 x10*3/uL (2.0-8.3); Neutrophils Percent Auto 79.2 % (45-73); Platelet Count 279 X10*3/uL (160-400); Red Blood Count 4.17 X10*6/uL (4.20-5.50); Red Cell Distribution Width 16.5 % (11.0-16.0); White Blood Count 8.4 X10*3/uL (4.8-10.8)
== END 2023-01-02 09:04 | disposition home or self-care (01) ==
LOC: HO.LABR 09:03
PROVIDERS: PCP Internal Medicine; Visit Provider Psychiatry & Neurology Psychiatry
DX: Z13.89 Encounter for screening for other disorder (principal)
CPT/HCPCS: 36415; 85025

== ENCOUNTER 2023-01-02 09:19 | Emergency (ER) | payer MEDICARE, MEDICAID, SELFPAY ==
--- NOTE | ~2023-01-02 | XR_ITS ---
EXAMINATION: XR CHEST CLINICAL INFORMATION: Chest discomfort COMPARISON: 01/16/2020 TECHNIQUE: 2 views of the chest were obtained. FINDINGS: Aortic stent graft noted at the distal arch and descending thoracic aorta. The lungs are well expanded. There is no focal consolidation, edema, or effusion. No pneumothorax. The cardiomediastinal silhouette is within normal limits. No acute osseous abnormality. Chronic healed right lateral rib fractures. XR/XR chest 2V IMPRESSION: No acute pulmonary finding. Aortic stent graft in place.
[2023-01-02 09:27] VITALS: BP 150/75; PULSE 99; RESP 20; TEMP 36.3; O2SAT 99; BMI 31.1
--- NOTE | 2023-01-02 09:30 | ECG_ITS ---
Test Reason : ?afib Blood Pressure : / mmHG Vent. Rate : 097 BPM Atrial Rate : 097 BPM P-R Int : 160 ms QRS Dur : 090 ms QT Int : 352 ms P-R-T Axes : 054 004 042 degrees QTc Int : 447 ms Normal sinus rhythm Cannot rule out Inferior infarct (cited on or before 02-JAN-2023) Abnormal ECG When compared with ECG of 25-SEP-2022 09:03, No significant change was found Referred By: Generic ED Physician Electronically Signed By:ARIANE LOONEY MD
[2023-01-02 09:45] LABS: Hematocrit 37.9 % (37.0-47.0); Hemoglobin 12.1 g/dl (12.0-16.0); Mean Corpuscular HGB Conc 31.9 g/dl (31.0-35.0); Mean Corpuscular Hemoglobin 28.2 pg (27.0-33.0); Mean Corpuscular Volume 88.3 fL (80.0-98.0); Mean Platelet Volume 9.6 fL (9.4-12.3); Platelet Count 273 X10*3/uL (160-400); Red Blood Count 4.29 X10*6/uL (4.20-5.50); Red Cell Distribution Width 16.5 % (11.0-16.0); White Blood Count 8.5 X10*3/uL (4.8-10.8)
[2023-01-02 10:09] LABS: Anion Gap 14 (12-20); Blood Urea Nitrogen 13 mg/dL (9-16); Calcium 9.8 mg/dL (8.4-10.2); Carbon Dioxide 25 mmol/L (22-29); Chloride 106 mmol/L (96-108); Creatinine Clr Calc Pharmacy 77.9; Estimated Glomerular Filt Rate > 60; Glucose Random 128 mg/dL (60-115); Potassium 4.7 mmol/L (3.3-5.1); Sodium 140 mmol/L (135-145)
[2023-01-02 10:21] LABS: Troponin-I High Sensitivity < 3.5 ng/L (<3.5-17.0)
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
[2023-01-02 14:31] VITALS: PULSE 80; RESP 18
== END 2023-01-02 14:41 | disposition home or self-care (01) ==
PROVIDERS: Emergency Provider Student in an Organized Health Care Education/Training Program; PCP Internal Medicine
DX: R00.2 Palpitations (principal); Z87.891 Personal history of nicotine dependence; Z79.899 Other long term (current) drug therapy
CPT/HCPCS: 36415; 71046; 80048; 84484; 85025; 85027; 93005; 99283; 99284

== ENCOUNTER 2023-01-07 11:34 | Outpatient (REF) | payer MEDICARE, MEDICAID, SELFPAY ==
[2023-01-07 12:28] LABS: MANUAL DIFF FLAG NO
[2023-01-07 13:05] LABS: Basophils Absolute Auto 0.1 X10*3/uL (0.0-0.2); Basophils Percent Auto 0.7 % (0-2); Eosinophils Absolute Auto 0.2 X10*3/uL (0.0-0.4); Eosinophils Percent Auto 2.3 % (0-4); Hematocrit 38.3 % (37.0-47.0); Hemoglobin 12.1 g/dl (12.0-16.0); Imm Gran Abs Auto 0.03 X10*3/uL (0.00-0.03); Imm Gran Pct Auto 0.3 % (0.0-0.4); Lymphocytes Absolute Auto 1.7 X10*3/uL (1.2-4.9); Lymphocytes Percent Auto 18.6 % (20-40); Mean Corpuscular HGB Conc 31.6 g/dl (31.0-35.0); Mean Corpuscular Hemoglobin 28.9 pg (27.0-33.0); Mean Corpuscular Volume 91.4 fL (80.0-98.0); Mean Platelet Volume 10.3 fL (9.4-12.3); Monocytes Absolute Auto 0.6 X10*3/uL (0.1-1.2); Monocytes Percent Auto 6.4 % (2-11); Neutrophils Absolute Auto 6.4 x10*3/uL (2.0-8.3); Neutrophils Percent Auto 71.7 % (45-73); Platelet Count 292 X10*3/uL (160-400); Red Blood Count 4.19 X10*6/uL (4.20-5.50); Red Cell Distribution Width 16.4 % (11.0-16.0); White Blood Count 8.9 X10*3/uL (4.8-10.8)
== END 2023-01-07 11:35 | disposition home or self-care (01) ==
LOC: HO.LAB 11:34
PROVIDERS: PCP Internal Medicine; Visit Provider Psychiatry & Neurology Psychiatry
DX: F25.0 Schizoaffective disorder, bipolar type (principal)
CPT/HCPCS: 36415; 85025; 90833; 99212

== ENCOUNTER 2023-01-16 08:42 | Outpatient (REF) | payer MEDICARE, MEDICAID, SELFPAY ==
[2023-01-16 08:51] LABS: MANUAL DIFF FLAG NO
[2023-01-16 09:20] LABS: Basophils Absolute Auto 0.1 X10*3/uL (0.0-0.2); Basophils Percent Auto 0.5 % (0-2); Eosinophils Absolute Auto 0.2 X10*3/uL (0.0-0.4); Eosinophils Percent Auto 1.6 % (0-4); Hematocrit 37.1 % (37.0-47.0); Hemoglobin 11.6 g/dl (12.0-16.0); Imm Gran Abs Auto 0.03 X10*3/uL (0.00-0.03); Imm Gran Pct Auto 0.3 % (0.0-0.4); Lymphocytes Absolute Auto 1.3 X10*3/uL (1.2-4.9); Lymphocytes Percent Auto 13.8 % (20-40); Mean Corpuscular HGB Conc 31.3 g/dl (31.0-35.0); Mean Corpuscular Hemoglobin 28.6 pg (27.0-33.0); Mean Corpuscular Volume 91.4 fL (80.0-98.0); Mean Platelet Volume 10.2 fL (9.4-12.3); Monocytes Absolute Auto 0.7 X10*3/uL (0.1-1.2); Monocytes Percent Auto 7.2 % (2-11); Neutrophils Absolute Auto 7.2 x10*3/uL (2.0-8.3); Neutrophils Percent Auto 76.6 % (45-73); Platelet Count 259 X10*3/uL (160-400); Red Blood Count 4.06 X10*6/uL (4.20-5.50); Red Cell Distribution Width 15.9 % (11.0-16.0); White Blood Count 9.4 X10*3/uL (4.8-10.8)
== END 2023-01-16 08:43 | disposition home or self-care (01) ==
LOC: HO.LABR 08:42
PROVIDERS: PCP Internal Medicine; Visit Provider Psychiatry & Neurology Psychiatry
DX: F25.0 Schizoaffective disorder, bipolar type (principal)
CPT/HCPCS: 36415; 85025

== ENCOUNTER 2023-01-23 10:21 | Outpatient (REF) | payer MEDICARE, MEDICAID, SELFPAY ==
[2023-01-23 10:30] LABS: MANUAL DIFF FLAG NO
[2023-01-23 11:11] LABS: Basophils Percent Auto 0.5 % (0-2); Eosinophils Absolute Auto 0.2 X10*3/uL (0.0-0.4); Eosinophils Percent Auto 1.8 % (0-4); Hematocrit 38.4 % (37.0-47.0); Imm Gran Abs Auto 0.01 X10*3/uL (0.00-0.03); Imm Gran Pct Auto 0.1 % (0.0-0.4); Lymphocytes Absolute Auto 1.4 X10*3/uL (1.2-4.9); Lymphocytes Percent Auto 17.8 % (20-40); Mean Corpuscular HGB Conc 31.3 g/dl (31.0-35.0); Mean Corpuscular Hemoglobin 28.7 pg (27.0-33.0); Mean Corpuscular Volume 91.9 fL (80.0-98.0); Mean Platelet Volume 10.2 fL (9.4-12.3); Monocytes Absolute Auto 0.8 X10*3/uL (0.1-1.2); Monocytes Percent Auto 10.1 % (2-11); Neutrophils Absolute Auto 5.7 x10*3/uL (2.0-8.3); Neutrophils Percent Auto 69.7 % (45-73); Platelet Count 247 X10*3/uL (160-400); Red Blood Count 4.18 X10*6/uL (4.20-5.50); Red Cell Distribution Width 15.6 % (11.0-16.0); White Blood Count 8.1 X10*3/uL (4.8-10.8)
== END 2023-01-23 10:22 | disposition home or self-care (01) ==
LOC: HO.LAB 10:21
PROVIDERS: PCP Internal Medicine; Visit Provider Psychiatry & Neurology Psychiatry
DX: F25.0 Schizoaffective disorder, bipolar type (principal)
CPT/HCPCS: 36415; 85025

== ENCOUNTER 2023-01-26 08:46 | Outpatient (REF) | payer MEDICARE, MEDICAID, SELFPAY ==
[2023-01-28 12:09] LABS: HPV mRNA E6/E7 rflx Not Detected (Not Detected)
== END 2023-01-26 08:47 | disposition home or self-care (01) ==
LOC: HO.LNP 08:46
PROVIDERS: PCP Internal Medicine; Visit Provider Obstetrics & Gynecology
DX: Z13.89 Encounter for screening for other disorder (principal)
CPT/HCPCS: 87624; 88142

== ENCOUNTER 2023-01-26 09:41 | Outpatient (REF) | payer MEDICARE, MEDICAID, SELFPAY ==
[2023-01-26 11:50] LABS: HCG Quantitative < 2 mIU/mL; TSH reflex Free T4 1.16 uIU/mL (0.32-4.0)
[2023-01-26 14:04] LABS: CT PCR NOT DETECTED (Not Detect.); NG PCR NOT DETECTED (Not Detect.)
[2023-01-27 18:39] LABS: Follicle Stimulating Hormone 24.5 mIU/mL; Lutenizing Hormone 8.1 mIU/mL; Prolactin 16.6 ng/mL
== END 2023-01-26 09:42 | disposition home or self-care (01) ==
LOC: HO.LAB 09:41
PROVIDERS: PCP Internal Medicine; Visit Provider Obstetrics & Gynecology
DX: Z12.4 Encounter for screening for malignant neoplasm of cervix (principal); Z11.51 Encounter for screening for human papillomavirus (HPV); N91.2 Amenorrhea, unspecified; N95.0 Postmenopausal bleeding
CPT/HCPCS: 0353U; 83001; 83002; 84146; 84443; 84702; 87624; 88142

== ENCOUNTER → 2023-01-28 09:20 | Outpatient (REF) | payer MEDICARE, MEDICAID, SELFPAY ==
[2023-01-28 09:41] LABS: MANUAL DIFF FLAG NO
[2023-01-28 10:05] LABS: Basophils Absolute Auto 0.1 X10*3/uL (0.0-0.2); Basophils Percent Auto 0.7 % (0-2); Eosinophils Absolute Auto 0.1 X10*3/uL (0.0-0.4); Eosinophils Percent Auto 1.3 % (0-4); Hematocrit 38.3 % (37.0-47.0); Hemoglobin 12.1 g/dl (12.0-16.0); Imm Gran Abs Auto 0.03 X10*3/uL (0.00-0.03); Imm Gran Pct Auto 0.4 % (0.0-0.4); Lymphocytes Absolute Auto 1.1 X10*3/uL (1.2-4.9); Lymphocytes Percent Auto 16.8 % (20-40); Mean Corpuscular HGB Conc 31.6 g/dl (31.0-35.0); Mean Corpuscular Volume 91.8 fL (80.0-98.0); Monocytes Absolute Auto 0.6 X10*3/uL (0.1-1.2); Monocytes Percent Auto 9.4 % (2-11); Neutrophils Absolute Auto 4.9 x10*3/uL (2.0-8.3); Neutrophils Percent Auto 71.4 % (45-73); Platelet Count 231 X10*3/uL (160-400); Red Blood Count 4.17 X10*6/uL (4.20-5.50); White Blood Count 6.8 X10*3/uL (4.8-10.8)
--- NOTE | 2023-01-28 14:49 | HM_ITS ---
* Total monitoring time 1 day and 18 hours. * Underlying rhythm is sinus. Average ventricular rate 75/Min. Range 47 to 117/Min. * Very rare PACs/isolated PVC. * No significant pauses or AV blocks. * No patient diary or marker. MTDD
== END ==
LOC: HO.CARD 09:20
PROVIDERS: Absent Provider Psychiatry & Neurology Psychiatry; PCP Internal Medicine; Visit Provider Internal Medicine
DX: R00.2 Palpitations (principal); F25.0 Schizoaffective disorder, bipolar type
CPT/HCPCS: 36415; 85025; 93225

== ENCOUNTER 2023-02-06 11:23 | Outpatient (REF) | payer MEDICARE, MEDICAID, SELFPAY ==
--- NOTE | ~2023-02-06 | US_ITS ---
EXAMINATION: US PELVIS CLINICAL INFORMATION: Amenorrhea COMPARISON: CT abdomen pelvis 01/06/2014. TECHNIQUE: Ultrasound of the pelvis is performed using both transabdominal and transvaginal transducers along with Doppler. Transvaginal imaging is performed due to inadequate visualization transabdominally. FINDINGS: Uterus: The uterus is retroverted and measures 7.1 x 4.4 x 4.2 cm. The double wall endometrial thickness is 0.8 mm. The uterus is smooth in contour and has normal myometrial echogenicity. No visible fibroid. Nabothian cysts are present in the cervix. Adnexa: Both ovaries are visualized. There is normal color flow to the adnexa. There is no ovarian torsion. There is no pelvic ascites or fluid collection. Right ovary measures 2.9 x 1.5 x 2.4 cm for a volume of 5.5 mL which includes a complex 2.0 x 0.8 x 1.0 cm cyst. Left ovary measures 2.1 x 1.0 x 0.9 cm for a volume of 1.0 mL. US/US pelvic and transvaginal IMPRESSION: 1. Normal-appearing retroverted uterus. 2. Small complex right ovarian cyst needs no followup.
[2023-02-06 12:18] LABS: MANUAL DIFF FLAG NO
[2023-02-06 12:37] LABS: White Blood Count 8.1 X10*3/uL (4.8-10.8)
[2023-02-06 12:38] LABS: Basophils Percent Auto 0.5 % (0-2); Eosinophils Absolute Auto 0.1 X10*3/uL (0.0-0.4); Eosinophils Percent Auto 0.9 % (0-4); Hematocrit 38.5 % (37.0-47.0); Hemoglobin 12.5 g/dl (12.0-16.0); Imm Gran Abs Auto 0.04 X10*3/uL (0.00-0.03); Imm Gran Pct Auto 0.5 % (0.0-0.4); Lymphocytes Absolute Auto 1.2 X10*3/uL (1.2-4.9); Lymphocytes Percent Auto 15.1 % (20-40); Mean Corpuscular HGB Conc 32.5 g/dl (31.0-35.0); Mean Corpuscular Hemoglobin 29.8 pg (27.0-33.0); Mean Corpuscular Volume 91.9 fL (80.0-98.0); Mean Platelet Volume 10.3 fL (9.4-12.3); Monocytes Absolute Auto 0.6 X10*3/uL (0.1-1.2); Monocytes Percent Auto 7.1 % (2-11); Neutrophils Absolute Auto 6.1 x10*3/uL (2.0-8.3); Neutrophils Percent Auto 75.9 % (45-73); Platelet Count 239 X10*3/uL (160-400); Red Blood Count 4.19 X10*6/uL (4.20-5.50); Red Cell Distribution Width 14.4 % (11.0-16.0)
== END 2023-02-06 11:24 | disposition home or self-care (01) ==
LOC: HO.US 11:23
PROVIDERS: Absent Provider Psychiatry & Neurology Psychiatry; PCP Internal Medicine; Visit Provider Obstetrics & Gynecology
DX: N91.2 Amenorrhea, unspecified (principal); N95.0 Postmenopausal bleeding; F25.0 Schizoaffective disorder, bipolar type
CPT/HCPCS: 36415; 76830; 76856; 85025

== ENCOUNTER 2023-02-09 06:04 | Day surgery (SDC) | payer MEDICARE, MEDICAID, SELFPAY ==
[2023-02-09 06:30] VITALS: BP 141/75; PULSE 93; RESP 19; TEMP 36.9; O2SAT 99; BMI 30.1
[2023-02-09 06:41] LABS: COVID-19 Test Negative (Negative); IDNOW Serial# 08D9AD1C
--- NOTE | 2023-02-09 07:06 | MHC.SHP ---
Pre-Procedural Eval Section A Date of Service: 02/09/23 The patient is an INPATIENT: No Changes since office visit: Yes Patient answered all questions; No Cold of Flu in the past 2 weeks, No New Medical Problems and No Changes in Medication Section B Chief Complaint: Major depressive disorder, recurrent, Allergies: Allergies Allergy/AdvReac Type Severity Reaction Status Date / Time Sulfa (Sulfonamide Allergy Mild UNKNOWN Verified 01/26/23 08:52 Antibiotics) Plan I have reviewed the history and physical and performed a pertinent physical examination on my patient. No changes have occurred unless specified. Time Spent With Patient Time: Total time managing care of this patient today ____ minutes.
--- NOTE | 2023-02-09 07:26 | HO.ECTPROC ---
ECT Procedure Note Diagnosis/Treatment Date of Service: 02/09/23 Diagnosis: Schizoaffective Disorder Treatment: Maintenance Interval Clinical Notes: Patient has not had ECT for over 6 7 weeks were depressed feels better less paranoia when having regular treatment Recent Holter monitor unremarkable Time: Total time managing care of this patient today ____ minutes. ECT Settings Device: THYMATRON DGx Electrode Placement: Bitemporal Program/Pulse Width: 0.50 Energy Percent: 100 Seizure Duration By EEG (in seconds): 39 Medications Administration General Anesthetic: Etomidate (16) Muscle Relaxant: Succinylcholine (100) Ancillary Medications Analgesics: Torodol - Pre ECT Anti-emetics: Zofran - Pre ECT Airway Management Airway Management: Bag Mask Ventilation Treatment Recommendations No Changes Recommended: No change Notes: Will try and schedule for 3 weeks Pt Tolerated Procedure w/o Issue: Yes
[2023-02-09 07:33] VITALS: BP 122/62; PULSE 77; RESP 16; TEMP 37.1; O2SAT 100
--- NOTE | 2023-02-09 07:36 | P.CONAN_ITS ---
[facility] Active Problems Active Problems: All Active Problems (Updated 01/26/23 @ 09:15 by Liam Valentine MD) Well woman exam (Acute) Amenorrhea (Acute) Postmenopausal bleeding (Acute) Eczema (Acute) Palpitation (Acute) Diarrhea (Acute) Hyperkalemia (Acute) Shortness of breath (Acute) Hypercholesterolemia (Acute) Left foot pain (Acute) Tinea pedis (Acute) Left foot pain (Acute) Preoperative clearance (Acute) Hypothyroid (Acute) Schizoaffective disorder, bipolar type (Acute) Past Medical History Medical History Depression Elevated cholesterol Hip fracture requiring operative repair Hypercholesterolemia Hypothyroid Liver laceration Liver problem Schizoaffective disorder, bipolar type Family History Family History Mother No problems noted. Father No problems noted. Family history of problems with anesthesia: No Surgical History Surgical History H/O rhinoplasty History of hip replacement History of hip surgery History of tracheostomy Status post aortic coarctation stent placement History of Problems with Anesthesia: No Social History Social History Housing: House Are you a primary continuum of care manager to a significant other at home: No Do you presently have visiting nurse or other home services: No Alcohol intake: never Patient Tobacco Use Status: Former Tobacco user e-Cigarette/Vaping Use: Never Used Second Hand Smoke Exposure: No Advance Directives: No Advance Directives Information Provided: Yes service: No Current occupational status: disabled Cognitive needs: No Hearing needs: No Vision needs: Yes (Glasses) Meds Allergies Allergy/AdvReac Type Severity Reaction Status Date / Time Sulfa (Sulfonamide Allergy Mild UNKNOWN Verified 01/26/23 08:52 Antibiotics) Home Medications Medication Instructions Recorded Confirmed Last Taken Type levothyroxine 112 mcg tablet 1 tab PO DAILY 09/04/20 09/15/22 Unknown History omeprazole 40 mg capsule,delayed 40 mg PO DAILY 02/11/21 11/26/21 Unknown His tory release Exam Exam Date and Time: February 09, 2023 0736 Height,Weight and Vital Signs: Height 5 ft 3 in Weight 77.111 kg Last Vital Signs Temp 98.5 F 02/09/23 06:30 Pulse 93 02/09/23 06:30 Resp 19 02/09/23 06:30 BP 141/75 H 02/09/23 06:30 Pulse Ox 99 02/09/23 06:30 O2 Del Method 02/09/23 06:30 Pertinent Lab Results Pertinent Lab Results: Laboratory Tests 02/09/23 06:13 COVID-19 ([facility]) Negative COVID-19 Clin Com See Note Airway Mallampati Class: II TM Dist: >3cm Neck ROM: Full Assessment and Plan Assessment Anesthesia Assessment: Anesthesia Plan Discussed and Chart Reviewed Final Anesthetic Review Family History of Problems with Anesthesia: No History of Problems with Anesthesia: No NPO: Yes ASA Class: II Final Preanesthetic Review: No Changes in Pt Med Stat, Meds/Allgs Chart Reviewed, Consent Obtained/Reviewed and Anes Risks/Benef Reviewed Patient Risk: Low Procedure Risk: Low Anesthetic Plan Anesthetic Plan: GA Disposition: Standard PACU
[2023-02-09 07:40] VITALS: BP 112/62; PULSE 85; RESP 16; O2SAT 99
[2023-02-09 07:45] VITALS: BP 126/71; PULSE 89; RESP 16; O2SAT 99
[2023-02-09 07:50] VITALS: BP 122/73; PULSE 87; RESP 16; O2SAT 97
[2023-02-09 08:05] VITALS: BP 125/74; PULSE 79; RESP 18; TEMP 37.1; O2SAT 97
== END 2023-02-09 08:21 | disposition home or self-care (01) ==
PROVIDERS: PCP Internal Medicine; Visit Provider Psychiatry & Neurology Psychiatry
PROC: (CPT 90870; principal; 2023-02-09 07:00)
DX: F25.0 Schizoaffective disorder, bipolar type (principal); E78.00 Pure hypercholesterolemia, unspecified; E03.9 Hypothyroidism, unspecified; Z88.2 Allergy status to sulfonamides; Z79.899 Other long term (current) drug therapy; Z20.822 Contact with and (suspected) exposure to COVID-19; Z87.891 Personal history of nicotine dependence
CPT/HCPCS: 87635; 90870; J0330; J1885; J2405

== ENCOUNTER 2023-02-13 08:32 | Outpatient (REF) | payer MEDICARE, MEDICAID, SELFPAY ==
[2023-02-13 08:54] LABS: MANUAL DIFF FLAG NO
[2023-02-13 09:09] LABS: Basophils Absolute Auto 0.1 X10*3/uL (0.0-0.2); Basophils Percent Auto 0.8 % (0-2); Eosinophils Absolute Auto 0.1 X10*3/uL (0.0-0.4); Eosinophils Percent Auto 1.5 % (0-4); Hemoglobin 12.7 g/dl (12.0-16.0); Imm Gran Abs Auto 0.02 X10*3/uL (0.00-0.03); Imm Gran Pct Auto 0.3 % (0.0-0.4); Lymphocytes Absolute Auto 1.1 X10*3/uL (1.2-4.9); Lymphocytes Percent Auto 18.2 % (20-40); Mean Corpuscular HGB Conc 31.8 g/dl (31.0-35.0); Mean Corpuscular Hemoglobin 29.2 pg (27.0-33.0); Mean Platelet Volume 9.8 fL (9.4-12.3); Monocytes Absolute Auto 0.4 X10*3/uL (0.1-1.2); Monocytes Percent Auto 6.2 % (2-11); Neutrophils Absolute Auto 4.4 x10*3/uL (2.0-8.3); Platelet Count 232 X10*3/uL (160-400); Red Blood Count 4.35 X10*6/uL (4.20-5.50); Red Cell Distribution Width 13.9 % (11.0-16.0)
== END 2023-02-13 08:33 | disposition home or self-care (01) ==
LOC: HO.LABR 08:32
PROVIDERS: PCP Internal Medicine; Visit Provider Psychiatry & Neurology Psychiatry
DX: F25.0 Schizoaffective disorder, bipolar type (principal)
CPT/HCPCS: 36415; 85025

== ENCOUNTER 2023-02-20 06:19 | Day surgery (SDC) | payer MEDICARE, MEDICAID, SELFPAY ==
[2023-02-20 06:30] VITALS: BP 152/83; PULSE 102; RESP 16; TEMP 36.8; O2SAT 96; BMI 29.2
[2023-02-20 06:38] LABS: UPreg QC Valid YES; Urine Pregnancy NEGATIVE (NEGATIVE)
--- NOTE | 2023-02-20 06:41 | HO.ANESPROP2 ---
[facility] Active Problems Active Problems: All Active Problems (Updated 01/26/23 @ 09:15 by Liam Valentine MD) Well woman exam (Acute) Amenorrhea (Acute) Postmenopausal bleeding (Acute) Eczema (Acute) Palpitation (Acute) Diarrhea (Acute) Hyperkalemia (Acute) Shortness of breath (Acute) Hypercholesterolemia (Acute) Left foot pain (Acute) Tinea pedis (Acute) Left foot pain (Acute) Preoperative clearance (Acute) Hypothyroid (Acute) Schizoaffective disorder, bipolar type (Acute) Past Medical History Medical History Depression Elevated cholesterol Hip fracture requiring operative repair Hypercholesterolemia Hypothyroid Liver laceration Liver problem Schizoaffective disorder, bipolar type Family History Family History Mother No problems noted. Father No problems noted. Family history of problems with anesthesia: No Surgical History Surgical History H/O rhinoplasty History of hip replacement History of hip surgery History of tracheostomy Status post aortic coarctation stent placement History of Problems with Anesthesia: No Social History Social History Housing: House Are you a primary lead caregiver to a significant other at home: No Do you presently have visiting nurse or other home services: No Alcohol intake: never Patient Tobacco Use Status: Former Tobacco user e-Cigarette/Vaping Use: Never Used Second Hand Smoke Exposure: No Use of substances other than those prescribed or required for medical reasons: No Are you DNR?: No Advance Directives: No Advance Directives Information Provided: Yes service: No Current occupational status: disabled Cognitive needs: No Hearing needs: No Vision needs: Yes (Glasses) Meds Allergies Allergy/AdvReac Type Severity Reaction Status Date / Time Sulfa (Sulfonamide Allergy Mild UNKNOWN Verified 02/20/23 06:38 Antibiotics) Home Medications Medication Instructions Recorded Confirmed Last Taken Type levothyroxine 112 mcg tablet 1 tab PO DAILY 09/04/20 02/20/23 Unknown History Exam Exam Date and Time: February 20, 2023 0641 Height,Weight and Vital Signs: Height 5 ft 3 in Weight 74.843 kg Last Vital Signs Temp 98.2 F 02/20/23 06:30 Pulse 102 H 02/20/23 06:30 Resp 16 02/20/23 06:30 BP 152/83 H 02/20/23 06:30 Pulse Ox 96 02/20/23 06:30 O2 Del Method Room Air 02/20/23 06:30 Pertinent Lab Results Pertinent Lab Results: Laboratory Tests 02/20/23 06:23 Urine Test NEGATIVE Airway Mallampati Class: II TM Dist: >3cm Neck ROM: Full Heart: rrr Lungs: cta Assessment and Plan Assessment Anesthesia Assessment: Anesthesia Plan Discussed and Chart Reviewed Final Anesthetic Review Family History of Problems with Anesthesia: No History of Problems with Anesthesia: No NPO: Yes ASA Class: III Final Preanesthetic Review: No Changes in Pt Med Stat, Meds/Allgs Chart Reviewed and Consent Obtained/Reviewed Patient Risk: Intermediate Procedure Risk: Intermediate Anesthetic Plan Anesthetic Plan: GA Disposition: Standard PACU
[2023-02-20] MEDS: Lactated Ringers 1,000 ML 50 ML IVCONT (06:49)
[2023-02-20 06:50] LABS: COVID-19 Test Negative (Negative); IDNOW Serial# 9DB6401D
--- NOTE | 2023-02-20 07:03 | MHC.SHP ---
Pre-Procedural Eval Section A Date of Service: 02/20/23 Section B Chief Complaint: depression Details of Present Illness: recurrent depression Relevant Social History: None Present Medications: see Short Stay Collaborative assessment Medical History: Significant History History of Previous Operations: No relevant previous surgery (ect aortic surgery ) Allergies: Allergies Allergy/AdvReac Type Severity Reaction Status Date / Time Sulfa (Sulfonamide Allergy Mild UNKNOWN Verified 02/20/23 06:38 Antibiotics) Review of Systems Sugical H&P ROS: Negative: Cardiovascular and Respiratory and Yes, Specify: Psychiatric (shilo LOW) Exam Surgical H&P Exam: Normal: Heart (rr no murmur) and Normal: Lungs (clear) Plan Diagnosis/Plan: Unchanged I have reviewed the history and physical and performed a pertinent physical examination on my patient. No changes have occurred unless specified. Time Spent With Patient Time: Total time managing care of this patient today ____ minutes.
--- NOTE | 2023-02-20 07:10 | HO.ECTPROC ---
ECT Procedure Note Diagnosis/Treatment Date of Service: 02/20/23 Diagnosis: Schizoaffective Disorder Treatment: Maintenance Interval Clinical Notes: pt has had ongoing dep sx clozaril 75 mg hs Time: Total time managing care of this patient today ____ minutes. ECT Settings Device: THYMATRON DGx Electrode Placement: Bitemporal Program/Pulse Width: 0.50 Energy Percent: 100 Seizure Duration By EEG (in seconds): 41 Medications Administration General Anesthetic: Etomidate (16) Muscle Relaxant: Succinylcholine (100) Ancillary Medications Analgesics: Torodol - Pre ECT Anti-emetics: Zofran - Pre ECT Miscillaneous Medications: Propofol (30 mg) Airway Management Airway Management: Bag Mask Ventilation Treatment Recommendations No Changes Recommended: No change Notes: Will try and schedule for 3 weeks to moderate dep sx and paranoia Pt Tolerated Procedure w/o Issue: Yes
[2023-02-20 07:23] VITALS: BP 134/63; PULSE 61; RESP 19; TEMP 37.3; O2SAT 98
[2023-02-20 07:28] VITALS: BP 136/72; PULSE 68; RESP 16; O2SAT 100
[2023-02-20 07:33] VITALS: BP 127/72; PULSE 65; RESP 16; O2SAT 100
[2023-02-20 07:38] VITALS: BP 136/72; PULSE 73; RESP 16; O2SAT 100
[2023-02-20 07:52] VITALS: BP 126/66; PULSE 76; RESP 16; TEMP 37.2; O2SAT 96
== END 2023-02-20 08:18 | disposition home or self-care (01) ==
PROVIDERS: PCP Internal Medicine; Visit Provider Psychiatry & Neurology Psychiatry
PROC: (CPT 90870; principal; 2023-02-20 08:00)
DX: F31.5 Bipolar disorder, current episode depressed, severe, with psychotic features (principal); E78.00 Pure hypercholesterolemia, unspecified; E03.9 Hypothyroidism, unspecified; Z79.899 Other long term (current) drug therapy; Z88.2 Allergy status to sulfonamides; Z20.822 Contact with and (suspected) exposure to COVID-19; Z87.891 Personal history of nicotine dependence
CPT/HCPCS: 81025; 87635; 90870; J0330; J1885; J2405

== ENCOUNTER 2023-02-27 09:15 | Outpatient (REF) | payer MEDICARE, MEDICAID, SELFPAY ==
[2023-02-27 09:22] LABS: MANUAL DIFF FLAG NO
[2023-02-27 09:43] LABS: Basophils Percent Auto 0.6 % (0-2); Eosinophils Absolute Auto 0.1 X10*3/uL (0.0-0.4); Eosinophils Percent Auto 1.2 % (0-4); Hematocrit 40.3 % (37.0-47.0); Imm Gran Abs Auto 0.01 X10*3/uL (0.00-0.03); Imm Gran Pct Auto 0.1 % (0.0-0.4); Lymphocytes Percent Auto 14.6 % (20-40); Mean Corpuscular HGB Conc 32.3 g/dl (31.0-35.0); Mean Corpuscular Hemoglobin 29.5 pg (27.0-33.0); Mean Corpuscular Volume 91.6 fL (80.0-98.0); Mean Platelet Volume 10.1 fL (9.4-12.3); Monocytes Absolute Auto 0.5 X10*3/uL (0.1-1.2); Monocytes Percent Auto 6.6 % (2-11); Neutrophils Absolute Auto 5.3 x10*3/uL (2.0-8.3); Neutrophils Percent Auto 76.9 % (45-73); Platelet Count 242 X10*3/uL (160-400); Red Cell Distribution Width 13.5 % (11.0-16.0); White Blood Count 6.9 X10*3/uL (4.8-10.8)
== END 2023-02-27 09:16 | disposition home or self-care (01) ==
LOC: HO.LABR 09:15
PROVIDERS: PCP Internal Medicine; Visit Provider Psychiatry & Neurology Psychiatry
DX: F25.0 Schizoaffective disorder, bipolar type (principal)
CPT/HCPCS: 36415; 85025

== ENCOUNTER 2023-03-04 09:14 | Outpatient (REF) | payer MEDICARE, MEDICAID, SELFPAY ==
[2023-03-04 09:27] LABS: MANUAL DIFF FLAG NO
[2023-03-04 10:04] LABS: Basophils Percent Auto 0.6 % (0-2); Eosinophils Absolute Auto 0.1 X10*3/uL (0.0-0.4); Hematocrit 39.9 % (37.0-47.0); Hemoglobin 13.1 g/dl (12.0-16.0); Imm Gran Abs Auto 0.02 X10*3/uL (0.00-0.03); Imm Gran Pct Auto 0.3 % (0.0-0.4); Lymphocytes Absolute Auto 1.1 X10*3/uL (1.2-4.9); Lymphocytes Percent Auto 15.1 % (20-40); Mean Corpuscular HGB Conc 32.8 g/dl (31.0-35.0); Mean Corpuscular Hemoglobin 30.1 pg (27.0-33.0); Mean Corpuscular Volume 91.7 fL (80.0-98.0); Mean Platelet Volume 10.2 fL (9.4-12.3); Monocytes Absolute Auto 0.5 X10*3/uL (0.1-1.2); Monocytes Percent Auto 6.5 % (2-11); Neutrophils Absolute Auto 5.5 x10*3/uL (2.0-8.3); Neutrophils Percent Auto 76.5 % (45-73); Platelet Count 253 X10*3/uL (160-400); Red Blood Count 4.35 X10*6/uL (4.20-5.50); Red Cell Distribution Width 13.2 % (11.0-16.0); White Blood Count 7.2 X10*3/uL (4.8-10.8)
== END 2023-03-04 09:15 | disposition home or self-care (01) ==
LOC: HO.LAB 09:14
PROVIDERS: PCP Internal Medicine; Visit Provider Psychiatry & Neurology Psychiatry
DX: F25.0 Schizoaffective disorder, bipolar type (principal)
CPT/HCPCS: 36415; 85025

== ENCOUNTER 2023-03-12 08:30 | Outpatient (REF) | payer MEDICARE, MEDICAID, SELFPAY ==
[2023-03-12 08:37] LABS: MANUAL DIFF FLAG NO
[2023-03-12 09:25] LABS: Basophils Percent Auto 0.5 % (0-2); Eosinophils Absolute Auto 0.1 X10*3/uL (0.0-0.4); Eosinophils Percent Auto 1.5 % (0-4); Hematocrit 39.8 % (37.0-47.0); Hemoglobin 12.8 g/dl (12.0-16.0); Imm Gran Abs Auto 0.03 X10*3/uL (0.00-0.03); Imm Gran Pct Auto 0.4 % (0.0-0.4); Lymphocytes Absolute Auto 1.1 X10*3/uL (1.2-4.9); Lymphocytes Percent Auto 14.2 % (20-40); Mean Corpuscular HGB Conc 32.2 g/dl (31.0-35.0); Mean Corpuscular Hemoglobin 30.3 pg (27.0-33.0); Mean Corpuscular Volume 94.1 fL (80.0-98.0); Mean Platelet Volume 10.5 fL (9.4-12.3); Monocytes Absolute Auto 0.6 X10*3/uL (0.1-1.2); Neutrophils Absolute Auto 5.6 x10*3/uL (2.0-8.3); Neutrophils Percent Auto 75.4 % (45-73); Platelet Count 239 X10*3/uL (160-400); Red Blood Count 4.23 X10*6/uL (4.20-5.50); Red Cell Distribution Width 13.5 % (11.0-16.0); White Blood Count 7.4 X10*3/uL (4.8-10.8)
== END 2023-03-12 08:31 | disposition home or self-care (01) ==
LOC: HO.LABR 08:30
PROVIDERS: PCP Internal Medicine; Visit Provider Psychiatry & Neurology Psychiatry
DX: F25.0 Schizoaffective disorder, bipolar type (principal)
CPT/HCPCS: 36415; 85025

== ENCOUNTER 2023-03-18 06:09 | Day surgery (SDC) | payer MEDICARE, MEDICAID, SELFPAY ==
[2023-03-18 06:23] VITALS: BP 160/80; PULSE 95; RESP 20; TEMP 36.7; O2SAT 97; BMI 29.2
--- NOTE | 2023-03-18 06:55 | HO.ANESPROP2 ---
[facility] Active Problems Active Problems: All Active Problems (Updated 01/26/23 @ 09:15 by Liam Valentine MD) Well woman exam (Acute) Amenorrhea (Acute) Postmenopausal bleeding (Acute) Eczema (Acute) Palpitation (Acute) Diarrhea (Acute) Hyperkalemia (Acute) Shortness of breath (Acute) Hypercholesterolemia (Acute) Left foot pain (Acute) Tinea pedis (Acute) Left foot pain (Acute) Preoperative clearance (Acute) Hypothyroid (Acute) Schizoaffective disorder, bipolar type (Acute) Past Medical History Medical History Depression Elevated cholesterol Hip fracture requiring operative repair Hypercholesterolemia Hypothyroid Liver laceration Liver problem Schizoaffective disorder, bipolar type Family History Family History Mother No problems noted. Father No problems noted. Family history of problems with anesthesia: No Surgical History Surgical History H/O rhinoplasty History of hip replacement History of hip surgery History of tracheostomy Status post aortic coarctation stent placement History of Problems with Anesthesia: No Social History Social History Housing: House Are you a primary technical healthcare consultant to a significant other at home: No Do you presently have visiting nurse or other home services: No Alcohol intake: never Patient Tobacco Use Status: Former Tobacco user e-Cigarette/Vaping Use: Never Used Second Hand Smoke Exposure: No Advance Directives: No Advance Directives Information Provided: Yes service: No Current occupational status: disabled Cognitive needs: No Hearing needs: No Vision needs: Yes (Glasses) Meds Allergies Allergy/AdvReac Type Severity Reaction Status Date / Time Sulfa (Sulfonamide Allergy Mild UNKNOWN Verified 02/20/23 06:38 Antibiotics) Home Medications Medication Instructions Recorded Confirmed Last Taken Type levothyroxine 112 mcg tablet 1 tab PO DAILY 09/04/20 02/20/23 Unknown History Exam Exam Date and Time: March 18, 2023 0655 Height,Weight and Vital Signs: Height 5 ft 3 in Weight 74.843 kg Last Vital Signs Temp 98.1 F 03/18/23 06:23 Pulse 95 03/18/23 06:23 Resp 20 03/18/23 06:23 BP 160/80 H 03/18/23 06:23 Pulse Ox 97 03/18/23 06:23 O2 Del Method Room Air 03/18/23 06:23 Airway Mallampati Class: II TM Dist: >3cm Neck ROM: Full Heart: rrr Lungs: cta Assessment and Plan Assessment Anesthesia Assessment: Anesthesia Plan Discussed and Chart Reviewed Final Anesthetic Review Family History of Problems with Anesthesia: No History of Problems with Anesthesia: No NPO: Yes ASA Class: III Final Preanesthetic Review: No Changes in Pt Med Stat, Meds/Allgs Chart Reviewed and Consent Obtained/Reviewed Patient Risk: Intermediate Procedure Risk: Intermediate Anesthetic Plan Anesthetic Plan: GA Disposition: Standard PACU
--- NOTE | 2023-03-18 07:13 | MHC.SHP ---
Pre-Procedural Eval Section A Date of Service: 03/18/23 Section B Chief Complaint: Major depressive disorder, recurrent, severe Details of Present Illness: recurrent depression PI Relevant Social History: None Present Medications: see Short Stay Collaborative assessment Medical History: Significant History History of Previous Operations: No relevant previous surgery (ect aortic surgery ) Allergies: Allergies Allergy/AdvReac Type Severity Reaction Status Date / Time Sulfa (Sulfonamide Allergy Mild UNKNOWN Verified 02/20/23 06:38 Antibiotics) Review of Systems Sugical H&P ROS: Negative: Cardiovascular and Respiratory and Yes, Specify: Psychiatric (shilo cooper PI) Exam Surgical H&P Exam: Normal: Heart (rr no murmur) and Normal: Lungs (clear) Plan Diagnosis/Plan: Unchanged I have reviewed the history and physical and performed a pertinent physical examination on my patient. No changes have occurred unless specified. Time Spent With Patient Time: Total time managing care of this patient today ____ minutes.
[2023-03-18 07:30] VITALS: BP 103/52; PULSE 54; RESP 20; TEMP 37.4; O2SAT 98
[2023-03-18 07:35] VITALS: BP 124/60; PULSE 65; RESP 12; O2SAT 100
--- NOTE | 2023-03-18 07:35 | HO.ECTPROC ---
ECT Procedure Note Diagnosis/Treatment Date of Service: 03/18/23 Diagnosis: Schizoaffective Disorder Treatment: Maintenance Interval Clinical Notes: pt with periods of paranoia feels better with ect last about 2 weeks does not want to cont clozapine secondary to drooling unclear other s/e Time: Total time managing care of this patient today ____ minutes. ECT Settings Device: THYMATRON DGx Electrode Placement: Bitemporal Program/Pulse Width: 0.50 Energy Percent: 100 Seizure Duration By EEG (in seconds): 54 Medications Administration General Anesthetic: Etomidate (16) Muscle Relaxant: Succinylcholine (100) Ancillary Medications Analgesics: Torodol - Pre ECT (15) Anti-emetics: Zofran - Pre ECT (4) Miscillaneous Medications: Propofol (30) Airway Management Airway Management: Bag Mask Ventilation Treatment Recommendations No Changes Recommended: No change Notes: f/u appt 3 weeks Pt Tolerated Procedure w/o Issue: Yes
[2023-03-18 07:40] VITALS: BP 116/63; PULSE 70; RESP 10; O2SAT 100
[2023-03-18 07:45] VITALS: BP 122/69; PULSE 78; RESP 10; O2SAT 100
[2023-03-18 08:00] VITALS: BP 113/62; PULSE 80; RESP 12; TEMP 37; O2SAT 100
[2023-03-18 08:18] LABS: MANUAL DIFF FLAG NO
[2023-03-18 08:22] LABS: Basophils Absolute Auto 0.1 X10*3/uL (0.0-0.2); Basophils Percent Auto 0.6 % (0-2); Eosinophils Percent Auto 0.1 % (0-4); Hematocrit 38.4 % (37.0-47.0); Hemoglobin 12.6 g/dl (12.0-16.0); Imm Gran Abs Auto 0.03 X10*3/uL (0.00-0.03); Imm Gran Pct Auto 0.4 % (0.0-0.4); Lymphocytes Absolute Auto 0.6 X10*3/uL (1.2-4.9); Lymphocytes Percent Auto 7.7 % (20-40); Mean Corpuscular HGB Conc 32.8 g/dl (31.0-35.0); Mean Corpuscular Hemoglobin 30.8 pg (27.0-33.0); Mean Corpuscular Volume 93.9 fL (80.0-98.0); Mean Platelet Volume 10.4 fL (9.4-12.3); Monocytes Absolute Auto 0.3 X10*3/uL (0.1-1.2); Neutrophils Absolute Auto 6.8 x10*3/uL (2.0-8.3); Neutrophils Percent Auto 87.2 % (45-73); Platelet Count 217 X10*3/uL (160-400); Red Blood Count 4.09 X10*6/uL (4.20-5.50); Red Cell Distribution Width 13.3 % (11.0-16.0); White Blood Count 7.8 X10*3/uL (4.8-10.8)
[2023-03-18 08:32] LABS: Lithium 0.46 mmol/L (0.60-1.20)
[2023-03-18 08:46] LABS: Alanine Aminotransferase 13 U/L (0-31); Albumin Level 4.3 g/dL (3.5-5.0); Alkaline Phosphatase 90 U/L (39-117); Anion Gap 13 (12-20); Aspartate Amino Transferase 15 U/L (5-31); Bilirubin Total 0.6 mg/dL (0.0-1.0); Blood Urea Nitrogen 11 mg/dL (9-16); Calcium 9.3 mg/dL (8.4-10.2); Carbon Dioxide 24 mmol/L (22-29); Chloride 108 mmol/L (96-108); Creatinine Clr Calc Pharmacy 77.5; Estimated Glomerular Filt Rate > 60; Glucose Fasting 133 mg/dL (60-99); Potassium 4.8 mmol/L (3.3-5.1); Sodium 140 mmol/L (135-145); Total Protein 6.6 g/dL (6.5-8.0)
[2023-03-18 09:16] LABS: Folate 16.2 ng/mL (> or = 4.0); TSH reflex Free T4 0.63 uIU/mL (0.32-4.0); Vitamin B12 919 pg/mL (200-900)
== END 2023-03-18 08:30 | disposition home or self-care (01) ==
PROVIDERS: PCP Internal Medicine; Visit Provider Psychiatry & Neurology Psychiatry
PROC: (CPT 90870; principal; 2023-03-18 07:00)
DX: F20.0 Paranoid schizophrenia (principal); E78.00 Pure hypercholesterolemia, unspecified; E03.9 Hypothyroidism, unspecified; Z79.899 Other long term (current) drug therapy; Z88.2 Allergy status to sulfonamides; Z87.891 Personal history of nicotine dependence
CPT/HCPCS: 36415; 80053; 80178; 82607; 82746; 84443; 85025; 90870; J0330; J1885; J2405

== ENCOUNTER 2023-03-23 12:51 | Outpatient (REF) | payer MEDICARE, MEDICAID, SELFPAY | END 2023-03-23 12:52 | disposition home or self-care (01) | LOC: HO.LNP 12:51 | PROVIDERS: PCP Internal Medicine; Visit Provider Obstetrics & Gynecology | DX: N95.0 Postmenopausal bleeding (principal); N83.299 Other ovarian cyst, unspecified side; Z78.0 Asymptomatic menopausal state | CPT/HCPCS: 58100; 88305; 99212 ==

== ENCOUNTER 2023-03-27 09:03 | Outpatient (REF) | payer MEDICARE, MEDICAID, SELFPAY ==
[2023-03-27 09:12] LABS: MANUAL DIFF FLAG NO
[2023-03-27 09:56] LABS: Basophils Percent Auto 0.5 % (0-2); Eosinophils Absolute Auto 0.1 X10*3/uL (0.0-0.4); Eosinophils Percent Auto 1.6 % (0-4); Hemoglobin 12.9 g/dl (12.0-16.0); Imm Gran Abs Auto 0.02 X10*3/uL (0.00-0.03); Imm Gran Pct Auto 0.3 % (0.0-0.4); Lymphocytes Absolute Auto 1.3 X10*3/uL (1.2-4.9); Lymphocytes Percent Auto 16.6 % (20-40); Mean Corpuscular HGB Conc 32.3 g/dl (31.0-35.0); Mean Corpuscular Hemoglobin 29.9 pg (27.0-33.0); Mean Corpuscular Volume 92.6 fL (80.0-98.0); Mean Platelet Volume 9.8 fL (9.4-12.3); Monocytes Absolute Auto 0.6 X10*3/uL (0.1-1.2); Monocytes Percent Auto 8.4 % (2-11); Neutrophils Absolute Auto 5.5 x10*3/uL (2.0-8.3); Neutrophils Percent Auto 72.6 % (45-73); Platelet Count 248 X10*3/uL (160-400); Red Blood Count 4.32 X10*6/uL (4.20-5.50); Red Cell Distribution Width 13.6 % (11.0-16.0); White Blood Count 7.6 X10*3/uL (4.8-10.8)
[2023-03-27 10:14] LABS: Lithium 0.79 mmol/L (0.60-1.20)
== END 2023-03-27 09:04 | disposition home or self-care (01) ==
LOC: HO.LABR 09:03
PROVIDERS: PCP Internal Medicine; Visit Provider Psychiatry & Neurology Psychiatry
DX: F25.0 Schizoaffective disorder, bipolar type (principal)
CPT/HCPCS: 36415; 80178; 85025

== ENCOUNTER 2023-04-03 09:39 | Outpatient (REF) | payer MEDICARE, MEDICAID, SELFPAY ==
[2023-04-03 10:02] LABS: MANUAL DIFF FLAG NO
[2023-04-03 10:33] LABS: Basophils Absolute Auto 0.1 X10*3/uL (0.0-0.2); Basophils Percent Auto 0.5 % (0-2); Eosinophils Absolute Auto 0.2 X10*3/uL (0.0-0.4); Eosinophils Percent Auto 1.4 % (0-4); Hematocrit 38.3 % (37.0-47.0); Hemoglobin 12.4 g/dl (12.0-16.0); Imm Gran Abs Auto 0.03 X10*3/uL (0.00-0.03); Imm Gran Pct Auto 0.3 % (0.0-0.4); Lymphocytes Absolute Auto 1.2 X10*3/uL (1.2-4.9); Lymphocytes Percent Auto 11.5 % (20-40); Mean Corpuscular HGB Conc 32.4 g/dl (31.0-35.0); Mean Corpuscular Hemoglobin 29.8 pg (27.0-33.0); Mean Corpuscular Volume 92.1 fL (80.0-98.0); Monocytes Absolute Auto 0.7 X10*3/uL (0.1-1.2); Monocytes Percent Auto 6.5 % (2-11); Neutrophils Absolute Auto 8.3 x10*3/uL (2.0-8.3); Neutrophils Percent Auto 79.8 % (45-73); Platelet Count 244 X10*3/uL (160-400); Red Blood Count 4.16 X10*6/uL (4.20-5.50); White Blood Count 10.4 X10*3/uL (4.8-10.8)
== END 2023-04-03 09:40 | disposition home or self-care (01) ==
LOC: HO.LAB 09:39
PROVIDERS: PCP Internal Medicine; Visit Provider Psychiatry & Neurology Psychiatry
DX: F25.0 Schizoaffective disorder, bipolar type (principal)
CPT/HCPCS: 36415; 85025

== ENCOUNTER 2023-04-16 08:35 | Outpatient (REF) | payer MEDICARE, MEDICAID, SELFPAY ==
[2023-04-16 08:45] LABS: MANUAL DIFF FLAG NO
[2023-04-16 09:24] LABS: Basophils Absolute Auto 0.1 X10*3/uL (0.0-0.2); Basophils Percent Auto 0.6 % (0-2); Eosinophils Absolute Auto 0.2 X10*3/uL (0.0-0.4); Eosinophils Percent Auto 1.7 % (0-4); Hematocrit 39.3 % (37.0-47.0); Hemoglobin 12.6 g/dl (12.0-16.0); Imm Gran Abs Auto 0.03 X10*3/uL (0.00-0.03); Imm Gran Pct Auto 0.3 % (0.0-0.4); Lymphocytes Percent Auto 11.1 % (20-40); Mean Corpuscular HGB Conc 32.1 g/dl (31.0-35.0); Mean Corpuscular Hemoglobin 30.1 pg (27.0-33.0); Mean Corpuscular Volume 93.8 fL (80.0-98.0); Mean Platelet Volume 9.6 fL (9.4-12.3); Monocytes Absolute Auto 0.7 X10*3/uL (0.1-1.2); Monocytes Percent Auto 7.5 % (2-11); Neutrophils Absolute Auto 6.8 x10*3/uL (2.0-8.3); Neutrophils Percent Auto 78.8 % (45-73); Platelet Count 284 X10*3/uL (160-400); Red Blood Count 4.19 X10*6/uL (4.20-5.50); Red Cell Distribution Width 14.1 % (11.0-16.0); White Blood Count 8.7 X10*3/uL (4.8-10.8)
== END 2023-04-16 08:36 | disposition home or self-care (01) ==
LOC: HO.LABR 08:35
PROVIDERS: PCP Internal Medicine; Visit Provider Psychiatry & Neurology Psychiatry
DX: F25.0 Schizoaffective disorder, bipolar type (principal)
CPT/HCPCS: 36415; 85025

== ENCOUNTER → 2023-04-21 11:17 | Outpatient (BNVA) | payer MEDICARE, MEDICAID, SELFPAY | PROVIDERS: PCP Internal Medicine; Visit Provider Obstetrics & Gynecology | DX: N95.0 Postmenopausal bleeding (principal); Z98.890 Other specified postprocedural states | CPT/HCPCS: 99212 ==

== ENCOUNTER 2023-04-25 09:50 | Outpatient (REF) | payer MEDICARE, MEDICAID, SELFPAY ==
[2023-04-25 10:04] LABS: MANUAL DIFF FLAG NO
[2023-04-25 10:43] LABS: Basophils Percent Auto 0.6 % (0-2); Eosinophils Absolute Auto 0.2 X10*3/uL (0.0-0.4); Eosinophils Percent Auto 2.2 % (0-4); Hematocrit 39.7 % (37.0-47.0); Hemoglobin 12.5 g/dl (12.0-16.0); Imm Gran Abs Auto 0.02 X10*3/uL (0.00-0.03); Imm Gran Pct Auto 0.3 % (0.0-0.4); Lymphocytes Absolute Auto 1.1 X10*3/uL (1.2-4.9); Lymphocytes Percent Auto 16.2 % (20-40); Mean Corpuscular HGB Conc 31.5 g/dl (31.0-35.0); Mean Corpuscular Hemoglobin 29.9 pg (27.0-33.0); Mean Platelet Volume 9.4 fL (9.4-12.3); Monocytes Absolute Auto 0.6 X10*3/uL (0.1-1.2); Monocytes Percent Auto 8.7 % (2-11); Neutrophils Absolute Auto 4.9 x10*3/uL (2.0-8.3); Platelet Count 298 X10*3/uL (160-400); Red Blood Count 4.18 X10*6/uL (4.20-5.50); Red Cell Distribution Width 14.1 % (11.0-16.0); White Blood Count 6.8 X10*3/uL (4.8-10.8)
== END 2023-04-25 09:51 | disposition home or self-care (01) ==
LOC: HO.LABR 09:50
PROVIDERS: PCP Internal Medicine; Visit Provider Psychiatry & Neurology Psychiatry
DX: F25.0 Schizoaffective disorder, bipolar type (principal)
CPT/HCPCS: 36415; 85025

== ENCOUNTER → 2023-04-27 10:55 | Outpatient (BNVA) | payer MEDICARE, MEDICAID, SELFPAY | PROVIDERS: PCP Internal Medicine; Visit Provider Obstetrics & Gynecology | DX: N95.0 Postmenopausal bleeding (principal) | CPT/HCPCS: Q3014 ==

== ENCOUNTER → 2023-04-28 13:23 | Outpatient (BNVA) | payer MEDICARE, MEDICAID, SELFPAY | PROVIDERS: PCP Internal Medicine; Visit Provider Psychiatry & Neurology Psychiatry | DX: F25.0 Schizoaffective disorder, bipolar type (principal) | CPT/HCPCS: 90833; 99212 ==

== ENCOUNTER 2023-05-01 09:30 | Outpatient (REF) | payer MEDICARE, MEDICAID, SELFPAY ==
--- NOTE | 2023-05-01 09:35 | ECG_ITS ---
Test Reason : BIPOLAR F25.0 Blood Pressure : / mmHG Vent. Rate : 102 BPM Atrial Rate : 102 BPM P-R Int : 152 ms QRS Dur : 082 ms QT Int : 332 ms P-R-T Axes : 049 -41 038 degrees QTc Int : 432 ms Sinus tachycardia Left axis deviation Abnormal ECG When compared with ECG of 02-JAN-2023 09:32, No significant change was found Referred By: Jose Carlos Alvarez Electronically Signed By:Brian Harrison
[2023-05-01 10:47] LABS: Lithium 0.74 mmol/L (0.60-1.20)
== END 2023-05-01 09:31 | disposition home or self-care (01) ==
LOC: HO.LAB 09:30
PROVIDERS: PCP Internal Medicine; Visit Provider Psychiatry & Neurology Psychiatry
DX: F25.0 Schizoaffective disorder, bipolar type (principal); Z79.899 Other long term (current) drug therapy
CPT/HCPCS: 36415; 80178; 93005

== ENCOUNTER 2023-05-06 06:06 | Day surgery (SDC) | payer MEDICARE, MEDICAID, SELFPAY ==
[2023-05-06 06:21] VITALS: BP 161/76; PULSE 102; RESP 20; TEMP 36.6; O2SAT 97; BMI 31.0
--- NOTE | 2023-05-06 06:44 | P.CONAN_ITS ---
[facility] Active Problems Active Problems: All Active Problems (Updated 04/27/23 @ 11:14 by Liam Valentine MD) Elevated blood pressure reading without diagnosis of hypertension (Acute) Complex ovarian cyst (Acute) Menopause (Acute) Well woman exam (Acute) Amenorrhea (Acute) Postmenopausal bleeding (Acute) Eczema (Acute) Palpitation (Acute) Diarrhea (Acute) Hyperkalemia (Acute) Shortness of breath (Acute) Hypercholesterolemia (Acute) Left foot pain (Acute) Tinea pedis (Acute) Left foot pain (Acute) Preoperative clearance (Acute) Hypothyroid (Acute) Schizoaffective disorder, bipolar type (Acute) Past Medical History Medical History Depression Elevated cholesterol Hip fracture requiring operative repair Hypercholesterolemia Hypothyroid Liver laceration Liver problem Schizoaffective disorder, bipolar type Family History Family History Mother No problems noted. Father No problems noted. Family history of problems with anesthesia: No Surgical History Surgical History H/O rhinoplasty History of hip replacement History of hip surgery History of tracheostomy Status post aortic coarctation stent placement History of Problems with Anesthesia: No Social History Social History Housing: House Are you a primary personal care service provider to a significant other at home: No Do you presently have visiting nurse or other home services: No Alcohol intake: never Patient Tobacco Use Status: Former Tobacco user Tobacco use type: Cigarette e-Cigarette/Vaping Use: Never Used Second Hand Smoke Exposure: No Advance Directives: No Advance Directives Information Provided: Yes service: No Current occupational status: disabled Cognitive needs: No Hearing needs: No Vision needs: Yes (Glasses) Meds Allergies Allergy/AdvReac Type Severity Reaction Status Date / Time Sulfa (Sulfonamide Allergy Mild UNKNOWN Verified 04/27/23 10:56 Antibiotics) Active Medications: Current Medications Lactated Ringer's (Lr) 1,000 mls @ 50 mls/hr IVCONT .Q20H [facility] Home Medications Medication Instructions Recorded Confirmed Last Taken Type levothyroxine 112 mcg tablet 1 tab PO DAILY 09/04/20 03/20/23 Unknown History aspirin 325 mg tablet 325 mg PO DAILY 04/16/23 Unknown History fluvoxamine 50 mg tablet 50 mg PO DAILY 04/28/23 04/28/23 Unknown History Exam Exam Date and Time: May 06, 202344 Height,Weight and Vital Signs: Height 5 ft 3 in Weight 79.379 kg Last Vital Signs Temp 97.9 F 05/06/23 06:21 Pulse 102 H 05/06/23 06:21 Resp 20 05/06/23 06:21 BP 161/76 H 05/06/23 06:21 Pulse Ox 97 05/06/23 06:21 O2 Del Method Room Air 05/06/23 06:21 Airway Mallampati Class: II TM Dist: >3cm Neck ROM: Full Heart: rrr Lungs: cta Assessment and Plan Assessment Anesthesia Assessment: Anesthesia Plan Discussed and Chart Reviewed Final Anesthetic Review Family History of Problems with Anesthesia: No History of Problems with Anesthesia: No NPO: Yes ASA Class: III Final Preanesthetic Review: No Changes in Pt Med Stat, Meds/Allgs Chart Reviewed and Consent Obtained/Reviewed Patient Risk: Intermediate Procedure Risk: Intermediate Anesthetic Plan Anesthetic Plan: GA Disposition: Standard PACU
--- NOTE | 2023-05-06 07:00 | MHC.SHP ---
Pre-Procedural Eval Section A Date of Service: 05/06/23 The patient is an INPATIENT: No Changes since office visit: Yes Changes in Medication and Yes Patient answered all questions; No Cold of Flu in the past 2 weeks and No New Medical Problems The History & Physical has been completed within 30 days and I have reviewed it.: Yes Section B Chief Complaint: depression disorder Allergies: Allergies Allergy/AdvReac Type Severity Reaction Status Date / Time Sulfa (Sulfonamide Allergy Mild UNKNOWN Verified 04/27/23 10:56 Antibiotics) Plan I have reviewed the history and physical and performed a pertinent physical examination on my patient. No changes have occurred unless specified. Time Spent With Patient Time: Total time managing care of this patient today ____ minutes.
--- NOTE | 2023-05-06 07:23 | HO.ECTPROC ---
ECT Procedure Note Diagnosis/Treatment Date of Service: 05/11/23 Diagnosis: Schizoaffective Disorder Previous ECT Date: 03/18/23 Treatment: Maintenance Interval Clinical Notes: pt with periods of paranoia feels better with ect last about 2 weeks does not want to cont clozapine secondary to drooling unclear other s/e Time: Total time managing care of this patient today ____ minutes. ECT Settings Device: THYMATRON DGx Electrode Placement: Bitemporal Program/Pulse Width: 0.25 Energy Percent: 100 Seizure Duration By EEG (in seconds): 61 Medications Administration General Anesthetic: Etomidate (16) Muscle Relaxant: Succinylcholine (100) Ancillary Medications Analgesics: Torodol - Pre ECT (15) Anti-emetics: Zofran - Pre ECT (4) Miscillaneous Medications: Propofol (30) Airway Management Airway Management: Bag Mask Ventilation Treatment Recommendations No Changes Recommended: No change Notes: f/u appt 3 weeks on clozaril 100 mg Pt Tolerated Procedure w/o Issue: Yes
[2023-05-06 07:26] VITALS: BP 107/56; PULSE 60; RESP 16; TEMP 37.3; O2SAT 97
[2023-05-06 07:31] VITALS: BP 119/65; PULSE 75; RESP 14; O2SAT 99
[2023-05-06 07:36] VITALS: BP 112/67; PULSE 80; RESP 14; O2SAT 100
[2023-05-06 07:41] VITALS: BP 122/60; PULSE 81; RESP 16; O2SAT 100
[2023-05-06 08:04] VITALS: BP 113/66; PULSE 83; RESP 16; TEMP 36.9; O2SAT 98
== END 2023-05-06 08:20 | disposition home or self-care (01) ==
PROVIDERS: PCP Internal Medicine; Visit Provider Psychiatry & Neurology Psychiatry
PROC: (CPT 90870; principal; 2023-05-06 07:30)
DX: F25.9 Schizoaffective disorder, unspecified (principal); F22 Delusional disorders; R03.0 Elevated blood-pressure reading, without diagnosis of hypertension; E78.00 Pure hypercholesterolemia, unspecified; E03.9 Hypothyroidism, unspecified; Z79.82 Long term (current) use of aspirin; Z79.899 Other long term (current) drug therapy; Z88.2 Allergy status to sulfonamides; Z87.891 Personal history of nicotine dependence
CPT/HCPCS: 90870; J0330; J1885; J2405

== ENCOUNTER 2023-05-08 10:07 | Outpatient (REF) | payer MEDICARE, MEDICAID, SELFPAY ==
[2023-05-08 10:22] LABS: MANUAL DIFF FLAG NO
[2023-05-08 11:02] LABS: Basophils Absolute Auto 0.1 X10*3/uL (0.0-0.2); Basophils Percent Auto 0.6 % (0-2); Eosinophils Absolute Auto 0.2 X10*3/uL (0.0-0.4); Hematocrit 39.6 % (37.0-47.0); Hemoglobin 12.8 g/dl (12.0-16.0); Imm Gran Abs Auto 0.02 X10*3/uL (0.00-0.03); Imm Gran Pct Auto 0.2 % (0.0-0.4); Lymphocytes Absolute Auto 1.4 X10*3/uL (1.2-4.9); Lymphocytes Percent Auto 17.1 % (20-40); Mean Corpuscular HGB Conc 32.3 g/dl (31.0-35.0); Mean Corpuscular Hemoglobin 30.5 pg (27.0-33.0); Mean Corpuscular Volume 94.5 fL (80.0-98.0); Mean Platelet Volume 9.9 fL (9.4-12.3); Monocytes Absolute Auto 0.7 X10*3/uL (0.1-1.2); Monocytes Percent Auto 8.1 % (2-11); Neutrophils Absolute Auto 5.8 x10*3/uL (2.0-8.3); Platelet Count 249 X10*3/uL (160-400); Red Blood Count 4.19 X10*6/uL (4.20-5.50); Red Cell Distribution Width 13.9 % (11.0-16.0)
== END 2023-05-08 10:08 | disposition home or self-care (01) ==
LOC: HO.LABR 10:07
PROVIDERS: Visit Provider Psychiatry & Neurology Psychiatry
DX: F25.0 Schizoaffective disorder, bipolar type (principal)
CPT/HCPCS: 36415; 85025

== ENCOUNTER → 2023-05-13 16:01 | Outpatient (BNVA) | payer MEDICARE, MEDICAID, SELFPAY | PROVIDERS: PCP Internal Medicine; Visit Provider Obstetrics & Gynecology | DX: Z01.818 Encounter for other preprocedural examination (principal); N95.0 Postmenopausal bleeding | CPT/HCPCS: 99212 ==

== ENCOUNTER 2023-05-15 09:15 | Outpatient (REF) | payer MEDICARE, MEDICAID, SELFPAY ==
[2023-05-15 09:26] LABS: MANUAL DIFF FLAG NO
[2023-05-15 10:02] LABS: Basophils Percent Auto 0.6 % (0-2); Eosinophils Absolute Auto 0.2 X10*3/uL (0.0-0.4); Eosinophils Percent Auto 2.5 % (0-4); Hematocrit 38.6 % (37.0-47.0); Hemoglobin 12.3 g/dl (12.0-16.0); Imm Gran Abs Auto 0.02 X10*3/uL (0.00-0.03); Imm Gran Pct Auto 0.3 % (0.0-0.4); Lymphocytes Absolute Auto 1.4 X10*3/uL (1.2-4.9); Lymphocytes Percent Auto 19.1 % (20-40); Mean Corpuscular HGB Conc 31.9 g/dl (31.0-35.0); Mean Corpuscular Volume 94.1 fL (80.0-98.0); Mean Platelet Volume 9.8 fL (9.4-12.3); Monocytes Absolute Auto 0.5 X10*3/uL (0.1-1.2); Neutrophils Percent Auto 70.5 % (45-73); Platelet Count 222 X10*3/uL (160-400); Red Cell Distribution Width 13.8 % (11.0-16.0); White Blood Count 7.1 X10*3/uL (4.8-10.8)
== END 2023-05-15 09:16 | disposition home or self-care (01) ==
LOC: HO.LABR 09:15
PROVIDERS: Visit Provider Psychiatry & Neurology Psychiatry
DX: F25.0 Schizoaffective disorder, bipolar type (principal)
CPT/HCPCS: 36415; 85025

== ENCOUNTER 2023-05-20 05:55 | Day surgery (SDC) | payer MEDICARE, MEDICAID, SELFPAY ==
[2023-05-20] VITALS (7 sets, daily range): BP systolic 107–170; BP diastolic 56–79; PULSE 56–98; RESP 14–20; TEMP 36.3–36.8; O2SAT 98–100; BMI 26.2
--- NOTE | 2023-05-20 06:43 | P.CONAN_ITS ---
[facility] Active Problems Active Problems: All Active Problems (Updated 04/27/23 @ 11:14 by Liam Valentine MD) Elevated blood pressure reading without diagnosis of hypertension (Acute) Complex ovarian cyst (Acute) Menopause (Acute) Well woman exam (Acute) Amenorrhea (Acute) Postmenopausal bleeding (Acute) Eczema (Acute) Palpitation (Acute) Diarrhea (Acute) Hyperkalemia (Acute) Shortness of breath (Acute) Hypercholesterolemia (Acute) Left foot pain (Acute) Tinea pedis (Acute) Left foot pain (Acute) Preoperative clearance (Acute) Hypothyroid (Acute) Schizoaffective disorder, bipolar type (Acute) Past Medical History Medical History Depression Elevated cholesterol Hip fracture requiring operative repair Hypercholesterolemia Hypothyroid Liver laceration Liver problem Schizoaffective disorder, bipolar type Family History Family History Mother No problems noted. Father No problems noted. Family history of problems with anesthesia: No Surgical History Surgical History H/O rhinoplasty History of hip replacement History of hip surgery History of tracheostomy Status post aortic coarctation stent placement History of Problems with Anesthesia: No Social History Social History Housing: House Are you a primary care tech to a significant other at home: No Do you presently have visiting nurse or other home services: No Alcohol intake: never Patient Tobacco Use Status: Former Tobacco user Tobacco use type: Cigarette e-Cigarette/Vaping Use: Never Used Second Hand Smoke Exposure: No Advance Directives: No Advance Directives Information Provided: Yes service: No Current occupational status: disabled Cognitive needs: No Hearing needs: No Vision needs: Yes (Glasses) Meds Allergies Allergy/AdvReac Type Severity Reaction Status Date / Time Sulfa (Sulfonamide Allergy Mild UNKNOWN Verified 05/13/23 16:07 Antibiotics) Home Medications Medication Instructions Recorded Confirmed Last Taken Type levothyroxine 112 mcg tablet 1 tab PO DAILY 09/04/20 03/20/23 Unknown History aspirin 325 mg tablet 325 mg PO DAILY 04/16/23 Unknown History fluvoxamine 50 mg tablet 50 mg PO DAILY 04/28/23 04/28/23 Unknown History Exam Exam Date and Time: May 20, 2023 0643 Height,Weight and Vital Signs: Height 5 ft 3 in Weight 67.132 kg Last Vital Signs Temp 97.6 F 05/20/23 06:27 Pulse 98 05/20/23 06:27 Resp 20 05/20/23 06:27 BP 163/79 H 05/20/23 06:27 Pulse Ox 98 05/20/23 06:27 O2 Del Method Room Air 05/20/23 06:27 Airway Mallampati Class: II TM Dist: >3cm Neck ROM: Full Heart: rrr Lungs: cta Assessment and Plan Assessment Anesthesia Assessment: Anesthesia Plan Discussed and Chart Reviewed Final Anesthetic Review Family History of Problems with Anesthesia: No History of Problems with Anesthesia: No NPO: Yes ASA Class: III Final Preanesthetic Review: No Changes in Pt Med Stat, Meds/Allgs Chart Reviewed and Consent Obtained/Reviewed Patient Risk: Intermediate Procedure Risk: Intermediate Anesthetic Plan Anesthetic Plan: GA Disposition: Standard PACU
--- NOTE | 2023-05-20 07:02 | MHC.SHP ---
Pre-Procedural Eval Section A Date of Service: 05/20/23 Section B Chief Complaint: depression disorder Details of Present Illness: recurrent depression PI Relevant Social History: None Present Medications: see Short Stay Collaborative assessment Medical History: Significant History History of Previous Operations: Relevant previous surgery/procedure and date(s) (ect) Allergies: Allergies Allergy/AdvReac Type Severity Reaction Status Date / Time Sulfa (Sulfonamide Allergy Mild UNKNOWN Verified 05/13/23 16:07 Antibiotics) Review of Systems Sugical H&P ROS: Negative: Cardiovascular and Respiratory and Yes, Specify: Psychiatric (PI denies si) Exam Surgical H&P Exam: Normal: Heart (rr no murmur) and Normal: Lungs (clear) Plan Diagnosis/Plan: Unchanged I have reviewed the history and physical and performed a pertinent physical examination on my patient. No changes have occurred unless specified. Time Spent With Patient Time: Total time managing care of this patient today ____ minutes.
--- NOTE | 2023-05-20 07:05 | HO.ECTPROC ---
ECT Procedure Note Diagnosis/Treatment Date of Service: 05/21/23 Diagnosis: Schizoaffective Disorder Previous ECT Date: 03/18/23 Treatment: Maintenance Interval Clinical Notes: pt with periods of paranoia feels better with ect last about 2 weeks does not want to cont clozapine secondary to drooling unclear other s/e Time: Total time managing care of this patient today ____ minutes. ECT Settings Device: THYMATRON DGx Electrode Placement: Bitemporal Program/Pulse Width: 0.25 Energy Percent: 90 Seizure Duration By EEG (in seconds): 61 Medications Administration General Anesthetic: Etomidate (16) Muscle Relaxant: Succinylcholine (100) Ancillary Medications Analgesics: Torodol - Pre ECT (15) Anti-emetics: Zofran - Pre ECT (4) Miscillaneous Medications: Propofol (30) Airway Management Airway Management: Bag Mask Ventilation Treatment Recommendations No Changes Recommended: No change Notes: f/u appt 3 weeks clozapine was d/c Pt Tolerated Procedure w/o Issue: Yes
[2023-05-20 08:09] LABS: Lithium 0.43 mmol/L (0.60-1.20)
== END 2023-05-20 08:30 | disposition home or self-care (01) ==
PROVIDERS: PCP Internal Medicine; Visit Provider Psychiatry & Neurology Psychiatry
PROC: (CPT 90870; principal; 2023-05-20 07:30)
DX: F25.0 Schizoaffective disorder, bipolar type (principal); R03.0 Elevated blood-pressure reading, without diagnosis of hypertension; R00.2 Palpitations; E78.00 Pure hypercholesterolemia, unspecified; E03.9 Hypothyroidism, unspecified; E87.5 Hyperkalemia; Z96.649 Presence of unspecified artificial hip joint; Z87.891 Personal history of nicotine dependence
CPT/HCPCS: 36415; 80178; 90870; J0330; J1885; J2405

== ENCOUNTER 2023-05-29 08:20 | Outpatient (REF) | payer MEDICARE, MEDICAID, SELFPAY | END 2023-05-29 08:21 | disposition home or self-care (01) | LOC: HO.LABR 08:20 | PROVIDERS: PCP Internal Medicine; Visit Provider Psychiatry & Neurology Psychiatry | DX: F25.0 Schizoaffective disorder, bipolar type (principal); F32.A Depression, unspecified | CPT/HCPCS: 36415; 80178; 85025; 90833; 99212 ==

== ENCOUNTER 2023-06-03 06:09 | Day surgery (SDC) | payer MEDICARE, MEDICAID, SELFPAY ==
[2023-06-03 06:24] VITALS: BP 141/54; PULSE 92; RESP 16; TEMP 36.3; O2SAT 97; BMI 31.0
--- NOTE | 2023-06-03 07:13 | MHC.SHP ---
Pre-Procedural Eval Section A Date of Service: 06/03/23 Section B Chief Complaint: Major depressive disorder, recurrent, severe with Details of Present Illness: recurrent depression PI Relevant Social History: None Present Medications: see Short Stay Collaborative assessment Medical History: Significant History History of Previous Operations: Relevant previous surgery/procedure and date(s) (ect) Allergies: Allergies Allergy/AdvReac Type Severity Reaction Status Date / Time Sulfa (Sulfonamide Allergy Mild UNKNOWN Verified 05/13/23 16:07 Antibiotics) Review of Systems Sugical H&P ROS: Negative: Cardiovascular and Respiratory and Yes, Specify: Psychiatric (PI depression deniesactive si) and Musculoskeletal (l foot surgery) Exam Surgical H&P Exam: Normal: Heart (rr no murmur) and Normal: Lungs (clear) Plan Diagnosis/Plan: Unchanged I have reviewed the history and physical and performed a pertinent physical examination on my patient. No changes have occurred unless specified. Time Spent With Patient Time: Total time managing care of this patient today ____ minutes.
--- NOTE | 2023-06-03 07:13 | HO.ECTPROC ---
ECT Procedure Note Diagnosis/Treatment Date of Service: 06/03/23 Diagnosis: Schizoaffective Disorder Previous ECT Date: 05/20/23 Treatment: Maintenance Interval Clinical Notes: pt with periods of paranoia feels better with ect on cloazpine luvox inc to 100 mg Time: Total time managing care of this patient today _30___ minutes. ECT Settings Device: THYMATRON DGx Electrode Placement: Bitemporal Program/Pulse Width: 0.25 Energy Percent: 90 Seizure Duration By EEG (in seconds): 64 Medications Administration General Anesthetic: Etomidate (16) Muscle Relaxant: Succinylcholine (100) Ancillary Medications Analgesics: Torodol - Pre ECT (15) Anti-emetics: Zofran - Pre ECT (4) Miscillaneous Medications: Propofol (30) Airway Management Airway Management: Bag Mask Ventilation Treatment Recommendations No Changes Recommended: No change Program/Pulse Width: 0.25 Notes: f/u ect 3 weeks clozapine 75 mg Pt Tolerated Procedure w/o Issue: Yes
[2023-06-03 07:36] VITALS: BP 164/57; PULSE 53; RESP 15; TEMP 37.2; O2SAT 100
--- NOTE | 2023-06-03 07:37 | P.CONAN_ITS ---
[facility] Active Problems Active Problems: All Active Problems (Updated 04/27/23 @ 11:14 by Liam Valentine MD) Elevated blood pressure reading without diagnosis of hypertension (Acute) Complex ovarian cyst (Acute) Menopause (Acute) Well woman exam (Acute) Amenorrhea (Acute) Postmenopausal bleeding (Acute) Eczema (Acute) Palpitation (Acute) Diarrhea (Acute) Hyperkalemia (Acute) Shortness of breath (Acute) Hypercholesterolemia (Acute) Left foot pain (Acute) Tinea pedis (Acute) Left foot pain (Acute) Preoperative clearance (Acute) Hypothyroid (Acute) Schizoaffective disorder, bipolar type (Acute) Past Medical History Medical History Depression Elevated cholesterol Hip fracture requiring operative repair Hypercholesterolemia Hypothyroid Liver laceration Liver problem Schizoaffective disorder, bipolar type Family History Family History Mother No problems noted. Father No problems noted. Family history of problems with anesthesia: No Surgical History Surgical History H/O rhinoplasty History of hip replacement History of hip surgery History of tracheostomy Status post aortic coarctation stent placement History of Problems with Anesthesia: No Social History Social History Housing: House Are you a primary client care coordinator to a significant other at home: No Do you presently have visiting nurse or other home services: No Alcohol intake: never Patient Tobacco Use Status: Former Tobacco user Tobacco use type: Cigarette e-Cigarette/Vaping Use: Never Used Second Hand Smoke Exposure: No Advance Directives: No Advance Directives Information Provided: Yes service: No Current occupational status: disabled Cognitive needs: No Hearing needs: No Vision needs: Yes (Glasses) Meds Allergies Allergy/AdvReac Type Severity Reaction Status Date / Time Sulfa (Sulfonamide Allergy Mild UNKNOWN Verified 05/13/23 16:07 Antibiotics) Home Medications Medication Instructions Recorded Confirmed Last Taken Type levothyroxine 112 mcg tablet 1 tab PO DAILY 09/04/20 03/20/23 Unknown History aspirin 325 mg tablet 325 mg PO DAILY 04/16/23 Unknown History Exam Exam Date and Time: June 03, 2023 0737 Height,Weight and Vital Signs: Height 5 ft 3 in Weight 79.379 kg Last Vital Signs Temp 97.3 F 06/03/23 06:24 Pulse 92 06/03/23 06:24 Resp 16 06/03/23 06:24 BP 141/54 H 06/03/23 06:24 Pulse Ox 97 06/03/23 06:24 O2 Del Method Room Air 06/03/23 06:24 Airway Mallampati Class: II TM Dist: >3cm Neck ROM: Full Assessment and Plan Assessment Anesthesia Assessment: Anesthesia Plan Discussed and Chart Reviewed Final Anesthetic Review Family History of Problems with Anesthesia: No History of Problems with Anesthesia: No NPO: Yes ASA Class: II and III Final Preanesthetic Review: No Changes in Pt Med Stat, Meds/Allgs Chart Reviewed, Consent Obtained/Reviewed and Anes Risks/Benef Reviewed Patient Risk: Low Procedure Risk: Low Anesthetic Plan Anesthetic Plan: GA Disposition: Standard PACU
[2023-06-03 07:41] VITALS: BP 128/69; PULSE 68; RESP 10; O2SAT 100
[2023-06-03 07:46] VITALS: BP 126/68; PULSE 70; RESP 11; O2SAT 100
[2023-06-03 07:51] VITALS: BP 128/70; PULSE 72; RESP 16; O2SAT 98
[2023-06-03 08:06] VITALS: BP 142/71; PULSE 69; RESP 16; TEMP 36.2; O2SAT 99
--- NOTE | 2023-06-03 09:26 | PC.NURSE ---
COMPUTER'S DOWN AT TIME OF PATIENT'S DISCHARGE AND SO DISCHARGE PACKET WAS NOT PRINTED OUT. PATIENT AWARE OF HER PRESCRIPTION FOR CLOZAPINE AND NEXT APPOINTMENT.
== END 2023-06-03 08:25 | disposition home or self-care (01) ==
PROVIDERS: PCP Internal Medicine; Visit Provider Psychiatry & Neurology Psychiatry
PROC: (CPT 90870; principal; 2023-06-03 07:00)
DX: F25.0 Schizoaffective disorder, bipolar type (principal); F22 Delusional disorders; E78.00 Pure hypercholesterolemia, unspecified; E03.9 Hypothyroidism, unspecified; Z79.82 Long term (current) use of aspirin; Z79.899 Other long term (current) drug therapy; Z88.2 Allergy status to sulfonamides; Z87.891 Personal history of nicotine dependence
CPT/HCPCS: 90870; J0330; J1885; J2405

== ENCOUNTER → 2023-06-03 06:09 | Outpatient (BNV) | payer MEDICARE, MEDICAID, SELFPAY | PROVIDERS: PCP Internal Medicine; Visit Provider Psychiatry & Neurology Psychiatry | DX: F33.3 Major depressive disorder, recurrent, severe with psychotic symptoms (principal) | CPT/HCPCS: 90870 ==

== ENCOUNTER 2023-06-06 09:02 | Outpatient (REF) | payer MEDICARE, MEDICAID, SELFPAY ==
[2023-06-06 09:14] LABS: MANUAL DIFF FLAG NO
[2023-06-06 09:33] LABS: Basophils Percent Auto 0.5 % (0-2); Eosinophils Absolute Auto 0.2 X10*3/uL (0.0-0.4); Eosinophils Percent Auto 2.5 % (0-4); Hematocrit 41.3 % (37.0-47.0); Hemoglobin 13.2 g/dl (12.0-16.0); Imm Gran Abs Auto 0.01 X10*3/uL (0.00-0.03); Imm Gran Pct Auto 0.2 % (0.0-0.4); Lymphocytes Absolute Auto 1.1 X10*3/uL (1.2-4.9); Mean Corpuscular Hemoglobin 30.6 pg (27.0-33.0); Mean Corpuscular Volume 95.8 fL (80.0-98.0); Mean Platelet Volume 9.5 fL (9.4-12.3); Monocytes Absolute Auto 0.4 X10*3/uL (0.1-1.2); Monocytes Percent Auto 5.9 % (2-11); Neutrophils Absolute Auto 4.3 x10*3/uL (2.0-8.3); Neutrophils Percent Auto 72.9 % (45-73); Platelet Count 277 X10*3/uL (160-400); Red Blood Count 4.31 X10*6/uL (4.20-5.50); Red Cell Distribution Width 13.2 % (11.0-16.0)
== END 2023-06-06 09:03 | disposition home or self-care (01) ==
LOC: HO.LAB 09:02
PROVIDERS: PCP Internal Medicine; Visit Provider Psychiatry & Neurology Psychiatry
DX: F25.0 Schizoaffective disorder, bipolar type (principal)
CPT/HCPCS: 36415; 85025

== ENCOUNTER 2023-06-12 | Outpatient (REF) | payer MEDICARE, MEDICAID, SELFPAY | END 2023-06-12 00:01 | LOC: CF | PROVIDERS: PCP Internal Medicine; Visit Provider Psychiatry & Neurology Psychiatry | DX: F25.0 Schizoaffective disorder, bipolar type (principal); Z79.899 Other long term (current) drug therapy | CPT/HCPCS: 90833; 99212 ==

== ENCOUNTER 2023-06-12 14:35 | Outpatient (REF) | payer MEDICARE, MEDICAID, SELFPAY ==
[2023-06-12 14:49] LABS: MANUAL DIFF FLAG NO
[2023-06-12 15:57] LABS: Basophils Absolute Auto 0.1 X10*3/uL (0.0-0.2); Basophils Percent Auto 0.6 % (0-2); Eosinophils Absolute Auto 0.1 X10*3/uL (0.0-0.4); Eosinophils Percent Auto 1.5 % (0-4); Hematocrit 40.4 % (37.0-47.0); Hemoglobin 12.9 g/dl (12.0-16.0); Imm Gran Abs Auto 0.04 X10*3/uL (0.00-0.03); Imm Gran Pct Auto 0.5 % (0.0-0.4); Lymphocytes Absolute Auto 1.2 X10*3/uL (1.2-4.9); Lymphocytes Percent Auto 13.7 % (20-40); Mean Corpuscular HGB Conc 31.9 g/dl (31.0-35.0); Mean Corpuscular Hemoglobin 30.7 pg (27.0-33.0); Mean Corpuscular Volume 96.2 fL (80.0-98.0); Mean Platelet Volume 9.9 fL (9.4-12.3); Monocytes Absolute Auto 0.6 X10*3/uL (0.1-1.2); Monocytes Percent Auto 6.4 % (2-11); Neutrophils Absolute Auto 6.9 x10*3/uL (2.0-8.3); Neutrophils Percent Auto 77.3 % (45-73); Platelet Count 264 X10*3/uL (160-400); Red Cell Distribution Width 13.2 % (11.0-16.0); White Blood Count 8.9 X10*3/uL (4.8-10.8)
[2023-06-12 16:32] LABS: Lithium 0.65 mmol/L (0.60-1.20)
== END 2023-06-12 14:36 | disposition home or self-care (01) ==
LOC: HO.LAB 14:35
PROVIDERS: Visit Provider Psychiatry & Neurology Psychiatry
DX: F25.0 Schizoaffective disorder, bipolar type (principal); Z79.899 Other long term (current) drug therapy
CPT/HCPCS: 36415; 80178; 85025

== ENCOUNTER 2023-06-12 21:40 | Outpatient (AMB) | payer MEDICARE, MEDICAID, SELFPAY ==
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
== END 2023-06-12 21:40 | disposition home or self-care (01) ==
LOC: HO.HOP 21:40
PROVIDERS: PCP Internal Medicine; Visit Provider Psychiatry & Neurology Psychiatry
DX: F25.0 Schizoaffective disorder, bipolar type (principal)
CPT/HCPCS: 90833; 99213

== ENCOUNTER 2023-06-17 05:56 | Day surgery (SDC) | payer MEDICARE, MEDICAID, SELFPAY ==
[2023-06-17 06:46] VITALS: BP 147/77; PULSE 92; RESP 18; TEMP 36.4; O2SAT 97; BMI 30.1
--- NOTE | 2023-06-17 06:46 | HO.ANESPROP2 ---
[facility] [place] Active Problems Active Problems: All Active Problems (Updated 04/27/23 @ 11:14 by Liam Valentine MD) Elevated blood pressure reading without diagnosis of hypertension (Acute) Complex ovarian cyst (Acute) Menopause (Acute) Well woman exam (Acute) Amenorrhea (Acute) Postmenopausal bleeding (Acute) Eczema (Acute) Palpitation (Acute) Diarrhea (Acute) Hyperkalemia (Acute) Shortness of breath (Acute) Hypercholesterolemia (Acute) Left foot pain (Acute) Tinea pedis (Acute) Left foot pain (Acute) Preoperative clearance (Acute) Hypothyroid (Acute) Schizoaffective disorder, bipolar type (Acute) Past Medical History Medical History Depression Elevated cholesterol Hip fracture requiring operative repair Hypercholesterolemia Hypothyroid Liver laceration Liver problem Schizoaffective disorder, bipolar type Family History Family History Mother No problems noted. Father No problems noted. Family history of problems with anesthesia: No Surgical History Surgical History H/O rhinoplasty History of hip replacement History of hip surgery History of tracheostomy Status post aortic coarctation stent placement History of Problems with Anesthesia: No Social History Social History Housing: House Are you a primary home health care coordinator to a significant other at home: No Do you presently have visiting nurse or other home services: No Alcohol intake: never Patient Tobacco Use Status: Former Tobacco user Tobacco use type: Cigarette e-Cigarette/Vaping Use: Never Used Second Hand Smoke Exposure: No Advance Directives: No Advance Directives Information Provided: Yes service: No Current occupational status: disabled Cognitive needs: No Hearing needs: No Vision needs: Yes (Glasses) Meds Allergies Allergy/AdvReac Type Severity Reaction Status Date / Time Sulfa (Sulfonamide Allergy Mild UNKNOWN Verified 05/13/23 16:07 Antibiotics) Home Medications Medication Instructions Recorded Confirmed Last Taken Type levothyroxine 112 mcg tablet 1 tab PO DAILY 09/04/20 06/12/23 Unknown History aspirin 325 mg tablet 325 mg PO DAILY 04/16/23 06/12/23 Unknown History Exam Exam Date and Time: June 17, 2023 0646 Airway Mallampati Class: II TM Dist: >3cm Neck ROM: Full Heart: rrr Lungs: cta Assessment and Plan Assessment Anesthesia Assessment: Anesthesia Plan Discussed and Chart Reviewed Final Anesthetic Review Family History of Problems with Anesthesia: No History of Problems with Anesthesia: No NPO: Yes ASA Class: III Final Preanesthetic Review: No Changes in Pt Med Stat, Meds/Allgs Chart Reviewed and Consent Obtained/Reviewed Patient Risk: Intermediate Procedure Risk: Intermediate Anesthetic Plan Anesthetic Plan: GA Disposition: Standard PACU
--- NOTE | 2023-06-17 07:12 | MHC.SHP ---
Pre-Procedural Eval Section A Date of Service: 06/17/23 The patient is an INPATIENT: No Changes since office visit: Yes Changes in Medication and Yes Patient answered all questions; No Cold of Flu in the past 2 weeks and No New Medical Problems The History & Physical has been completed within 30 days and I have reviewed it.: Yes Section B Chief Complaint: depression disorder Allergies: Allergies Allergy/AdvReac Type Severity Reaction Status Date / Time Sulfa (Sulfonamide Allergy Mild UNKNOWN Verified 05/13/23 16:07 Antibiotics) Plan I have reviewed the history and physical and performed a pertinent physical examination on my patient. No changes have occurred unless specified. Time Spent With Patient Time: Total time managing care of this patient today ____ minutes.
--- NOTE | 2023-06-17 07:33 | HO.ECTPROC ---
ECT Procedure Note Diagnosis/Treatment Date of Service: 06/17/23 Diagnosis: Bipolar disorder Previous ECT Date: 06/03/23 Treatment: Maintenance Interval Clinical Notes: pt with periods of paranoia feels better with ect on cloazpine now inc to 100 mg luvox at 100 mg seems improved states she is feeling better Time: Total time managing care of this patient today ____ minutes. ECT Settings Device: THYMATRON DGx Electrode Placement: Bitemporal Program/Pulse Width: 0.25 Energy Percent: 90 Seizure Duration By EEG (in seconds): 58 Medications Administration General Anesthetic: Etomidate (16) Muscle Relaxant: Succinylcholine (100) Ancillary Medications Analgesics: Torodol - Pre ECT (15) Anti-emetics: Zofran - Pre ECT (4) Miscillaneous Medications: Propofol (30) Airway Management Airway Management: Bag Mask Ventilation Treatment Recommendations No Changes Recommended: No change Program/Pulse Width: 0.25 Notes: f/u ect 3 weeks clozapine 100 mg Pt Tolerated Procedure w/o Issue: Yes
[2023-06-17 07:34] VITALS: BP 98/60; PULSE 56; RESP 16; TEMP 37; O2SAT 95
[2023-06-17 07:39] VITALS: BP 121/72; PULSE 67; RESP 14; O2SAT 100
[2023-06-17 07:44] VITALS: BP 121/72; PULSE 70; RESP 16; O2SAT 100
[2023-06-17 07:49] VITALS: BP 124/74; PULSE 66; RESP 18; TEMP 36.6; O2SAT 100
[2023-06-17 08:04] VITALS: BP 114/66; PULSE 72; RESP 18; TEMP 36.5; O2SAT 100
== END 2023-06-17 08:41 | disposition home or self-care (01) ==
PROVIDERS: PCP Internal Medicine; Visit Provider Psychiatry & Neurology Psychiatry
PROC: (CPT 90870; principal; 2023-06-17 07:30)
DX: F25.0 Schizoaffective disorder, bipolar type (principal); E03.9 Hypothyroidism, unspecified; Z79.899 Other long term (current) drug therapy; Z79.82 Long term (current) use of aspirin; Z88.2 Allergy status to sulfonamides; Z87.891 Personal history of nicotine dependence; E78.00 Pure hypercholesterolemia, unspecified
CPT/HCPCS: 90870; J0330; J1885; J2405

== ENCOUNTER → 2023-06-17 05:56 | Outpatient (BNV) | payer MEDICARE, MEDICAID, SELFPAY | PROVIDERS: PCP Internal Medicine; Visit Provider Psychiatry & Neurology Psychiatry | DX: F25.0 Schizoaffective disorder, bipolar type (principal) | CPT/HCPCS: 90870 ==

== ENCOUNTER 2023-06-18 09:15 | Outpatient (REF) | payer MEDICARE, MEDICAID, SELFPAY ==
[2023-06-18 09:24] LABS: MANUAL DIFF FLAG NO
[2023-06-18 09:34] LABS: Basophils Percent Auto 0.5 % (0-2); Eosinophils Absolute Auto 0.1 X10*3/uL (0.0-0.4); Eosinophils Percent Auto 1.6 % (0-4); Hematocrit 37.3 % (37.0-47.0); Imm Gran Abs Auto 0.02 X10*3/uL (0.00-0.03); Imm Gran Pct Auto 0.3 % (0.0-0.4); Lymphocytes Absolute Auto 1.1 X10*3/uL (1.2-4.9); Lymphocytes Percent Auto 13.7 % (20-40); Mean Corpuscular HGB Conc 32.2 g/dl (31.0-35.0); Mean Corpuscular Hemoglobin 30.5 pg (27.0-33.0); Mean Corpuscular Volume 94.7 fL (80.0-98.0); Mean Platelet Volume 9.4 fL (9.4-12.3); Monocytes Absolute Auto 0.5 X10*3/uL (0.1-1.2); Monocytes Percent Auto 6.4 % (2-11); Neutrophils Absolute Auto 6.2 x10*3/uL (2.0-8.3); Neutrophils Percent Auto 77.5 % (45-73); Platelet Count 207 X10*3/uL (160-400); Red Blood Count 3.94 X10*6/uL (4.20-5.50); White Blood Count 7.9 X10*3/uL (4.8-10.8)
== END 2023-06-18 09:16 | disposition home or self-care (01) ==
LOC: HO.LABR 09:15
PROVIDERS: Visit Provider Psychiatry & Neurology Psychiatry
DX: F25.0 Schizoaffective disorder, bipolar type (principal)
CPT/HCPCS: 36415; 85025

== ENCOUNTER 2023-06-19 05:59 | Day surgery (SDC) | payer MEDICARE, MEDICAID, SELFPAY ==
[2023-06-16 10:28] VITALS: BMI 31.0
--- NOTE | 2023-06-18 08:53 | HO.ANESPROP2 ---
Documented by User: Elvi Riggs NP 06/18/23 08:54 HPI - Anesthesia Eval Consult details Narrative: 48yo F for D&C Hysteroscopy Poss Myomectomy/Polypectomy PMFSH Active Problems Active Problems: All Active Problems (Updated 04/27/23 @ 11:14 by Liam Valentine MD) Elevated blood pressure reading without diagnosis of hypertension (Acute) Complex ovarian cyst (Acute) Menopause (Acute) Well woman exam (Acute) Amenorrhea (Acute) Postmenopausal bleeding (Acute) Eczema (Acute) Palpitation (Acute) Diarrhea (Acute) Hyperkalemia (Acute) Shortness of breath (Acute) Hypercholesterolemia (Acute) Left foot pain (Acute) Tinea pedis (Acute) Left foot pain (Acute) Preoperative clearance (Acute) Hypothyroid (Acute) Schizoaffective disorder, bipolar type (Acute) Past Medical History Medical History (Updated 06/19/23 @ 07:22 by Heather Bolivar MD) Depression Elevated cholesterol Hip fracture requiring operative repair Hypercholesterolemia Hypothyroid Liver laceration Liver problem Schizoaffective disorder, bipolar type Family History Family History Mother No problems noted. Father No problems noted. Family history of problems with anesthesia: No Surgical History Surgical History H/O rhinoplasty History of hip replacement History of hip surgery History of surgery on lower extremity History of tracheostomy Status post aortic coarctation stent placement History of Problems with Anesthesia: No Social History Social History Housing: House Are you a primary animal caretaker supervisor to a significant other at home: No Do you presently have visiting nurse or other home services: No Alcohol intake: never Patient Tobacco Use Status: Former Tobacco user Tobacco use type: Cigarette e-Cigarette/Vaping Use: Never Used Second Hand Smoke Exposure: No Are you DNR?: No Advance Directives: No Advance Directives Information Provided: Yes FDLMP: 2mths ago lastperiod service: No Current occupational status: disabled Cognitive needs: No Hearing needs: No Vision needs: Yes (Glasses) Meds Allergies Allergy/AdvReac Type Severity Reaction Status Date / Time Sulfa (Sulfonamide Allergy Mild UNKNOWN Verified 05/13/23 16:07 Antibiotics) Home Medications Medication Instructions Recorded Confirmed Last Taken Type levothyroxine 112 mcg tablet 1 tab PO DAILY 09/04/20 06/12/23 06/18/23 15:00 History aspirin 325 mg tablet 325 mg PO DAILY 04/16/23 06/12/23 06/17/23 History atorvastatin 20 mg tablet 20 mg PO DAILY 06/19/23 06/19/23 06/18/23 15:00 History Exam Exam Date and Time: June 18, 2023 0853 Height,Weight and Vital Signs: Height 5 ft 3 in Weight 79.379 kg Pertinent Lab Results Pertinent Lab Results: Laboratory Tests 03/18/23 06/12/23 08:13 14:48 WBC 8.9 Hgb 12.9 Hct 40.4 Plt Count 264 Sodium 140 Potassium 4.8 Chloride 108 Carbon Dioxide 24 BUN 11 Creatinine 0.85 Narrative Narrative: EKG 04/2023 Vent. Rate : 102 BPM ? ? Atrial Rate : 102 BPM ?? P-R Int : 152 ms? QRS Dur : 082 ms ? ? QT Int : 332 ms ? ? ? P-R-T Axes : 049 -41 038 degrees ?? QTc Int : 432 ms ? Sinus tachycardia Left axis deviation Abnormal ECG When compared with ECG of 02-JAN-2023 09:32, No significant change was found Assessment and Plan Assessment Anesthesia Assessment: Chart Reviewed Final Anesthetic Review Family History of Problems with Anesthesia: No History of Problems with Anesthesia: No Documented by User: Heather Bolivar MD 06/19/23 07:25 [facility] Active Problems Active Problems: All Active Problems (Updated 06/19/23 @ 07:10 by Heather Bolivar MD) Elevated blood pressure reading without diagnosis of hypertension (Acute) Complex ovarian cyst (Acute) Menopause (Acute) Well woman exam (Acute) Amenorrhea (Acute) Postmenopausal bleeding (Acute) Eczema (Acute) Palpitation (Acute) Diarrhea (Acute) Hyperkalemia (Acute) Shortness of breath (Acute) Hypercholesterolemia (Acute) Left foot pain (Acute) Tinea pedis (Acute) Left foot pain (Acute) Preoperative clearance (Acute) Hypothyroid (Acute) Schizoaffective disorder, bipolar type (Acute) Past Medical History Medical History (Updated 06/19/23 @ 07:22 by Heather Bolivar MD) Depression Elevated cholesterol Hip fracture requiring operative repair Hypercholesterolemia Hypothyroid Liver laceration Liver problem Schizoaffective disorder, bipolar type Family History Family History Mother No problems noted. Father No problems noted. Surgical History Surgical History H/O rhinoplasty History of hip replacement History of hip surgery History of surgery on lower extremity History of tracheostomy Status post aortic coarctation stent placement Social History Social History Housing: House Are you a primary animal caretaker supervisor to a significant other at home: No Do you presently have visiting nurse or other home services: No Alcohol intake: never Patient Tobacco Use Status: Former Tobacco user Tobacco use type: Cigarette e-Cigarette/Vaping Use: Never Used Second Hand Smoke Exposure: No Are you DNR?: No Advance Directives: No Advance Directives Information Provided: Yes FDLMP: 2mths ago lastperiod service: No Current occupational status: disabled Cognitive needs: No Hearing needs: No Vision needs: Yes (Glasses) Meds Allergies Allergy/AdvReac Type Severity Reaction Status Date / Time Sulfa (Sulfonamide Allergy Mild UNKNOWN Verified 05/13/23 16:07 Antibiotics) Home Medications Medication Instructions Recorded Confirmed Last Taken Type levothyroxine 112 mcg tablet 1 tab PO DAILY 09/04/20 06/12/23 06/18/23 15:00 History aspirin 325 mg tablet 325 mg PO DAILY 04/16/23 06/12/23 06/17/23 History atorvastatin 20 mg tablet 20 mg PO DAILY 06/19/23 06/19/23 06/18/23 15:00 History Exam Height,Weight and Vital Signs: Height 5 ft 3 in Weight 79.379 kg Vital Signs Temp Pulse Resp BP Pulse Ox O2 Del Method 06/19/23 06:14 97 F 96 20 118/75 98 Room Air Pertinent Lab Results Pertinent Lab Results: Laboratory Tests 03/18/23 06/12/23 08:13 14:48 WBC 8.9 Hgb 12.9 Hct 40.4 Plt Count 264 Sodium 140 Potassium 4.8 Chloride 108 Carbon Dioxide 24 BUN 11 Creatinine 0.85 Lab Results 06/19/23 Range/Units 06:05 Urine Test NEGATIVE (NEGATIVE) Airway Mallampati Class: II TM Dist: >3cm Neck ROM: Full Loose/Missing/Broken Teeth: No (Denies broken, loose, missing teeth) Heart: RRR Lungs: CTAB Assessment and Plan Assessment Anesthesia Assessment: Anesthesia Plan Discussed Final Anesthetic Review NPO: Yes ASA Class: III Final Preanesthetic Review: No Changes in Pt Med Stat, Meds/Allgs Chart Reviewed, Consent Obtained/Reviewed and Anes Risks/Benef Reviewed Patient Risk: Intermediate Procedure Risk: Low Assessment/Block/Sedation in SS: Assess/Block/Sedation-SS Anesthetic Plan Anesthetic Plan: GA Disposition: Standard PACU
[2023-06-19 06:14] VITALS: BP 118/75; PULSE 96; RESP 20; TEMP 36.1; O2SAT 98
[2023-06-19 06:18] LABS: UPreg QC Valid YES; Urine Pregnancy NEGATIVE (NEGATIVE)
--- NOTE | 2023-06-19 08:10 | P.BOP_ITS ---
Brief Operative Note Date of Service: 06/19/23 Pre-op diagnosis: Postmenopausal bleeding, endometrial polyp on EMB pathology Post-op diagnosis: same (Endometrial polyp) Procedure: Hysteroscopy D&C, Polypectomy Surgeon: Liam Valentine MD Anesthesia: GLMA Was an Buttonhole Maker Hand used for this Procedure?: No Estimated blood loss (mL): 0 Pathology: other (Endometrial Scrapping. Polyp) Condition: stable Disposition: PACU
--- NOTE | 2023-06-19 08:11 | P.OP_ITS ---
Operative Note Operative Note Date of Service: 06/19/23 Narrative: Preop Diagnosis: Postmenopausal bleeding, Endometrial polyp on EMB pathology Operation: Diagnostic Hysteroscopy, Dilataion & Curettage and polypectomy Post Op Diagnosis: Endometrial Polyp QBL: Minimal Anesthesia: GLMA Surgeon: Liam Valentine MD Research Manufacturing Operator: None Complication: None Pathology: Endometrial Scrapings, Endometrial polyp Procedure: The patient was put in the dorsal lithotomy position, scrubbed, and draped in the usual manner. A sterile speculum was inserted in the patient's vagina. The anterior lip of the cervix was grasped with a single tooth tenaculum. The cervix was dilated up to 5 mm, then the scope was inserted in the patient's uterus. Inspection revealed endometrial polyp. The Myosure Reach device was used; it was introduced through the operative channel and polypectomy done with no complications. The scope was then taken out from the uterine cavity, sharp curettings was carried on with minimal to moderate amount of tissues retrieved. At the end of the procedure, all instruments were taken out of the patient uterine and vaginal cavity. The single tooth tenaculum was removed and homeostasis was assured using pressure,. The patient tolerated the procedure well and was transferred to the PACU in a stable condition.
--- NOTE | 2023-06-19 08:12 | MHC.SHP ---
Pre-Procedural Eval Section A Date of Service: 06/19/23 The patient is an INPATIENT: No Changes since office visit: No Cold of Flu in the past 2 weeks, No New Medical Problems, No Changes in Medication and No Patient answered all questions The History & Physical has been completed within 30 days and I have reviewed it.: Yes Section B Chief Complaint: Postmenopausal bleeding Allergies: Allergies Allergy/AdvReac Type Severity Reaction Status Date / Time Sulfa (Sulfonamide Allergy Mild UNKNOWN Verified 05/13/23 16:07 Antibiotics) Plan Diagnosis/Plan: Unchanged I have reviewed the history and physical and performed a pertinent physical examination on my patient. No changes have occurred unless specified. Time Spent With Patient Time: Total time managing care of this patient today ____ minutes.
[2023-06-19 08:16] VITALS: BP 154/71; PULSE 98; RESP 20; TEMP 36.1; O2SAT 100
[2023-06-19 08:21] VITALS: BP 133/69; PULSE 74; RESP 20; O2SAT 99
[2023-06-19 08:26] VITALS: BP 132/66; PULSE 72; RESP 20; O2SAT 99
[2023-06-19 08:31] VITALS: BP 131/73; PULSE 70; RESP 17; TEMP 36.8; O2SAT 100
== END 2023-06-19 09:00 | disposition home or self-care (01) ==
PROVIDERS: PCP Internal Medicine; Visit Provider Obstetrics & Gynecology
PROC: 0UDB8ZZ Extraction of Endometrium, Via Natural or Artificial Opening Endoscopic (ICD-10-PCS; CPT 58558; principal; 2023-06-19 07:30)
DX: N95.0 Postmenopausal bleeding (principal); N84.0 Polyp of corpus uteri; N91.2 Amenorrhea, unspecified; R03.0 Elevated blood-pressure reading, without diagnosis of hypertension; E78.00 Pure hypercholesterolemia, unspecified; F25.0 Schizoaffective disorder, bipolar type; Z79.82 Long term (current) use of aspirin; Z79.899 Other long term (current) drug therapy; Z88.2 Allergy status to sulfonamides; Z98.890 Other specified postprocedural states; Z87.891 Personal history of nicotine dependence
CPT/HCPCS: 58558; 81025; 88305; J1100; J1885; J2250; J2405; J3010

== ENCOUNTER → 2023-06-19 05:59 | Outpatient (BNV) | payer MEDICARE, MEDICAID, SELFPAY | PROVIDERS: PCP Internal Medicine; Visit Provider Obstetrics & Gynecology | DX: N84.0 Polyp of corpus uteri (principal); N95.0 Postmenopausal bleeding | CPT/HCPCS: 58558 ==

== ENCOUNTER 2023-06-23 09:39 | Outpatient (AMB) | payer MEDICARE, MEDICAID, SELFPAY ==
[2023-06-23 09:46] VITALS: BP 120/74; PULSE 99; BMI 32.4
--- NOTE | 2023-06-23 09:46 | A.OFFVIS_ITS ---
Intake Vital Signs 06/23/23 09:46 Height 5 ft 3 in Weight 182 lb 15.739 oz BMI 32.4 BP 120/74 Blood Pressure Location Lt brachial Position Sitting Pulse 99 Intake Visit Reasons: NPV/Palpitations/Saykin Intake Note: New patient dx palpitation per patient they have stopped Picture Enlarger Required: No Allergies Sulfa (Sulfonamide Antibiotics) Allergy (Mild, Verified 05/13/23 16:07) UNKNOWN Medication List - Last Reconciled 06/23/23 by Anton Medellin MD aspirin (Adult Aspirin Regimen) 81 mg PO DAILY atorvastatin 20 mg PO DAILY cariprazine (Vraylar) 6 mg PO DAILY 30 days cholecalciferol (vitamin D3) 25 mcg PO DAILY clozapine 100 mg PO BEDTIME donepezil 10 mg PO DAILY fluvoxamine 50 mg PO BID levothyroxine 1 tab PO DAILY lithium carbonate ER 900 mg (2 x 450 mg) PO BEDTIME lithium carbonate ER 300 mg PO DAILY lorazepam 0.5 - 1 mg (0.5 - 1 x 1 mg) PO TID olanzapine orally take 4 tabs daily divided doses; 30 days HPI HPI Comments History of Present Illness Details I was consulted to see Anay in cardiology consultation today for symptoms of palpitations. She came to the emergency room in April for symptoms of palpitations. She says she would feel her heart racing and then would feel skipped heartbeats. She came to the emergency room and her EKG was within normal limits. While monitoring and multiple rhythm strips demonstrated normal sinus rhythm. She says she was having symptoms while she was in the emergency room. However since then her symptoms have subsided. She denies any use of stimulants or any stressful period in her life. She has been taking all her medications regularly. She has never had any prior cardiovascular issues. She does have high cholesterol. No prior myocardial infarction. Denies any exertional chest pain or shortness of breath. Currently not very active due to injury to her left ankle. [facility] Medical History Depression Elevated cholesterol Hip fracture requiring operative repair Hypercholesterolemia Hypothyroid Liver laceration Liver problem Schizoaffective disorder, bipolar type Surgical History H/O rhinoplasty History of hip replacement History of hip surgery History of surgery on lower extremity History of tracheostomy Status post aortic coarctation stent placement Family History Mother No problems noted. Father No problems noted. Social History Housing: House Are you a primary hearing healthcare practitioner to a significant other at home: No Do you presently have visiting nurse or other home services: No Alcohol intake: never Patient Tobacco Use Status: Former Tobacco user Tobacco use type: Cigarette e-Cigarette/Vaping Use: Never Used Second Hand Smoke Exposure: No service: No Current occupational status: disabled Cognitive needs: No Hearing needs: No Vision needs: Yes (Glasses) Female Reproductive History Menstrual Age of Menarche: 10 Review of Systems Const Denies chills, Denies daytime sleepiness, Denies fatigue, Denies fever(s), Denies frequent falls, Denies poor appetite, Denies snoring, Denies stops breathing during sleep, Denies weakness, Denies weight gain and Denies weight loss Eyes Denies loss of vision ENT Denies dizziness and Denies hearing loss Card Denies chest pain, Denies claudication, Denies leg edema, Denies lightheadedness, Denies palpitations, Denies dyspnea, Denies dyspnea on exertion and Denies orthopnea Resp Denies cough, Denies excessive phlegm production, Denies dyspnea, Denies dyspnea on exertion, Denies snoring and Denies wheezing GI Denies abdominal pain, Denies hematochezia, Denies change in bowel habits, Denies nausea and Denies vomiting Denies urinary frequency and Denies dysuria Musc Denies arthralgias, Denies muscle weakness, Denies numbness and Denies other (frequent falls) Skin/Breast Denies nail changes and Denies rash Neuro Denies Abnormal speech present, Denies dizziness, Denies frequent falls, Denies loss of vision, Denies memory loss, Denies numbness and Denies weakness Psych Denies depression and Denies memory loss Endo Denies fatigue and Denies palpitations Raul/Lymph Reports easy bruising and Reports other (anemia) Aller/Immun Denies wheezing Physical Exam Vital Signs: Last Vital Signs Pulse 99 06/23/23 09:46 BP 120/74 06/23/23 09:46 BMI result Body Mass Index 32.4 Const General: cooperative, comfortable, no acute distress, alert, awake and Physically active Nutritional Appearance: obese Orientation/consciousness: patient oriented x3 Limitations: no limitations HEENT Head: Yes normocephalic and Yes atraumatic Neck Neck: Yes trachea midline, Yes supple and Yes no JVD Resp Effort & Inspection: normal respiratory effort Auscultation: clear to auscultation bilaterally Cardio Jugular venous distension: no JVD Palpation: normal PMI Rate: regular rate Rhythm: regular rhythm Heart sounds: S1 normal heart sound present, S2 normal heart sound present, no click, no gallops, no murmurs and no rubs GI Auscultation: normal bowel sounds Skin General skin exam: no rashes or lesions noted Neuro General: patient oriented x3 and no focal motor deficits Speech: No Abnormal speech present Extrem General: Yes no clubbing, cyanosis or edema Office Procedures EKG Details: EKG done today shows normal sinus rhythm normal EKG with normal axis and normal intervals [id number], Complete Assessment & Plan Assessment & Plan (1) Palpitation: Code(s): R00.2 - Palpitations Plan: Palpitations of unclear etiology. Could represent extra systoles such as PVCs or PACs or short episodes of SVT. Although this is unclear based on current data. Will obtain a 30 day event monitor to further assess for cardiac arrhythmias. This was discussed with her. Treatment based on the findings. Currently his symptoms resolved. Also obtain echocardiogram to assess for cardiac structure and function. Avoidance of stimulants was discussed. Stress mitigation strategies to be pursued. I do not see a role for aspirin therapy on her and have advised her to discontinue the same based on recent trials. Will follow up in the clinic in 2 months time, sooner p.r.n.. Thank you for allowing me to partake in the care Coding Level of Care Code New Pt Level 3 (52918) Diagnoses Palpitation R00.2 CPT Codes EKG - CPT: 77717-[id number], Complete ([id number])
== END 2023-06-23 10:11 | disposition home or self-care (01) ==
PROVIDERS: Visit Provider Internal Medicine Cardiovascular Disease
DX: R00.2 Palpitations (principal)
CPT/HCPCS: 93010; 99213

== ENCOUNTER 2023-06-23 10:39 | Outpatient (REF) | payer MEDICARE, MEDICAID, SELFPAY ==
--- NOTE | ~2023-06-23 | US_ITS ---
EXAMINATION: US PELVIS CLINICAL INFORMATION: Follow-up ovarian cyst. COMPARISON: Pelvic ultrasound 02/06/2023. TECHNIQUE: Ultrasound of the pelvis is performed using both transabdominal and transvaginal transducers along with Doppler. Transvaginal imaging is performed due to inadequate visualization transabdominally. FINDINGS: Uterus: The uterus is retroverted and measures 6.7 x 3.3 x 4.2 cm. Nabothian cysts in the cervix. The double wall endometrial thickness is 6 mm. The uterus is smooth in contour and has normal myometrial echogenicity. No visible fibroid. Adnexa: Both ovaries are visualized. There is normal color flow to the adnexa. There is no ovarian torsion. There is no pelvic ascites or fluid collection. Right ovary measures 2.1 x 0.8 x 1.0 cm. Volume 0.9 mL. No focal ovarian lesion. Left ovary measures 1.4 x 1.5 x 0.9 cm. Volume 1.0 mL. No focal ovarian lesion. US/US pelvic and transvaginal IMPRESSION: Resolution of previously seen right ovarian cyst.
== END 2023-06-23 10:40 | disposition home or self-care (01) ==
LOC: HO.US 10:39
PROVIDERS: PCP Internal Medicine; Visit Provider Obstetrics & Gynecology
DX: N83.299 Other ovarian cyst, unspecified side (principal)
CPT/HCPCS: 76830; 76856; 93005; 99212

== ENCOUNTER 2023-06-26 09:36 | Outpatient (REF) | payer MEDICARE, MEDICAID, SELFPAY ==
[2023-06-26 09:48] LABS: MANUAL DIFF FLAG NO
[2023-06-26 10:41] LABS: Basophils Absolute Auto 0.1 X10*3/uL (0.0-0.2); Basophils Percent Auto 0.6 % (0-2); Eosinophils Absolute Auto 0.1 X10*3/uL (0.0-0.4); Eosinophils Percent Auto 1.6 % (0-4); Hematocrit 40.8 % (37.0-47.0); Hemoglobin 13.1 g/dl (12.0-16.0); Imm Gran Abs Auto 0.02 X10*3/uL (0.00-0.03); Imm Gran Pct Auto 0.2 % (0.0-0.4); Lymphocytes Absolute Auto 1.1 X10*3/uL (1.2-4.9); Lymphocytes Percent Auto 12.3 % (20-40); Mean Corpuscular HGB Conc 32.1 g/dl (31.0-35.0); Mean Corpuscular Hemoglobin 30.2 pg (27.0-33.0); Mean Platelet Volume 9.9 fL (9.4-12.3); Monocytes Absolute Auto 0.7 X10*3/uL (0.1-1.2); Monocytes Percent Auto 8.4 % (2-11); Neutrophils Absolute Auto 6.8 x10*3/uL (2.0-8.3); Neutrophils Percent Auto 76.9 % (45-73); Platelet Count 243 X10*3/uL (160-400); Red Blood Count 4.34 X10*6/uL (4.20-5.50); Red Cell Distribution Width 12.6 % (11.0-16.0); White Blood Count 8.8 X10*3/uL (4.8-10.8)
== END 2023-06-26 09:37 | disposition home or self-care (01) ==
LOC: HO.LAB 09:36
PROVIDERS: PCP Internal Medicine; Visit Provider Psychiatry & Neurology Psychiatry
DX: F25.0 Schizoaffective disorder, bipolar type (principal)
CPT/HCPCS: 36415; 85025

== ENCOUNTER 2023-06-30 13:58 | Outpatient (AMB) | payer MEDICARE, MEDICAID, SELFPAY ==
--- NOTE | 2023-06-30 14:14 | MHC.OFFVIS ---
Intake Vital Signs 06/30/23 14:16 Height 5 ft 3 in Weight 180 lb 12.465 oz BMI 32.0 BP 122/72 Intake Visit Reasons: post op Allergies Sulfa (Sulfonamide Antibiotics) Allergy (Mild, Verified 05/13/23 16:07) UNKNOWN HPI HPI Comments History of Present Illness Details The patient is presenting post hysteroscopy D&C /polypectomy no complaints minimal vaginal bleeding no feverishness chills or abdominal pain. The pathology showed the following: A. Endometrium, curettage: -Scant benign fragmented inactive endometrium; no atypia or carcinoma. -Benign squamous and endocervical glandular epithelium. B. Endometrium, polyp, resection: -Fragments consistent with benign endometrial polyp; no atypia or carcinoma. -Fragments of benign smooth muscle (myometrium versus submucosal leiomyoma). [facility] Medical History Depression Elevated cholesterol Hip fracture requiring operative repair Hypercholesterolemia Hypothyroid Liver laceration Liver problem Schizoaffective disorder, bipolar type Surgical History H/O rhinoplasty History of hip replacement History of hip surgery History of surgery on lower extremity History of tracheostomy Status post aortic coarctation stent placement Family History Mother No problems noted. Father No problems noted. Social History Housing: House Are you a primary rental boats caretaker to a significant other at home: No Do you presently have visiting nurse or other home services: No Alcohol intake: never Patient Tobacco Use Status: Former Tobacco user Tobacco use type: Cigarette e-Cigarette/Vaping Use: Never Used Second Hand Smoke Exposure: No service: No Current occupational status: disabled Cognitive needs: No Hearing needs: No Vision needs: Yes (Glasses) Female Reproductive History Menstrual Age of Menarche: 10 Review of Systems Const All systems reviewed & are unremarkable except as noted in HPI and below Reports as per HPI and Reports no additional complaints GI Reports no additional complaints Reports no additional complaints Physical Exam Vital Signs: Last Vital Signs BP 122/72 06/30/23 14:16 BMI result Body Mass Index 32.0 Assessment & Plan Assessment & Plan (1) Postmenopausal bleeding: Comment: With endometrial polyp status post polypectomy/Myomyectomy Code(s): N95.0 - Postmenopausal bleeding Plan: Discussed with the patient the intraoperative finding, and the results of the pathology showing inactive endometrium/benign endometrium and Kiko. Discussed with the patient the sensitivity, specificity, positive and negative predictive value, of endometrial biopsy in detecting endometrial pathology including but not limited to endometrial hyperplasia, cancer and other pathology; instructed the patient to call in case is vaginal bleeding bleeding recurs, the next step will be to proceed with further endometrial sampling evaluation to rule out endometrial pathology. All questions answered and the patient verbalized understanding and agreed with the plan. Coding Level of Care Code Est Pt Level 3 (00304) Diagnoses Postmenopausal bleeding N95.0
[2023-06-30 14:16] VITALS: BP 122/72; BMI 32.0
== END 2023-06-30 14:20 | disposition home or self-care (01) ==
LOC: HO.HWS 13:58
PROVIDERS: PCP Internal Medicine; Visit Provider Obstetrics & Gynecology
DX: N95.0 Postmenopausal bleeding (principal)
CPT/HCPCS: 99213

== ENCOUNTER → 2023-06-30 13:58 | Outpatient (BNVA) | payer MEDICARE, MEDICAID, SELFPAY | PROVIDERS: PCP Internal Medicine; Visit Provider Obstetrics & Gynecology | DX: N95.0 Postmenopausal bleeding (principal) | CPT/HCPCS: 99212 ==

== ENCOUNTER → 2023-07-01 13:46 | Outpatient (BNVA) | payer MEDICARE, MEDICAID, SELFPAY | PROVIDERS: PCP Internal Medicine; Visit Provider Psychiatry & Neurology Psychiatry ==

== ENCOUNTER 2023-07-04 10:10 | Outpatient (REF) | payer MEDICARE, MEDICAID, SELFPAY ==
[2023-07-04 10:39] LABS: MANUAL DIFF FLAG NO
[2023-07-04 11:20] LABS: Basophils Absolute Auto 0.1 X10*3/uL (0.0-0.2); Basophils Percent Auto 0.6 % (0-2); Eosinophils Absolute Auto 0.2 X10*3/uL (0.0-0.4); Eosinophils Percent Auto 1.9 % (0-4); Hematocrit 41.4 % (37.0-47.0); Hemoglobin 13.3 g/dl (12.0-16.0); Imm Gran Abs Auto 0.02 X10*3/uL (0.00-0.03); Imm Gran Pct Auto 0.2 % (0.0-0.4); Lymphocytes Absolute Auto 1.1 X10*3/uL (1.2-4.9); Lymphocytes Percent Auto 12.9 % (20-40); Mean Corpuscular HGB Conc 32.1 g/dl (31.0-35.0); Mean Corpuscular Hemoglobin 30.4 pg (27.0-33.0); Mean Corpuscular Volume 94.7 fL (80.0-98.0); Mean Platelet Volume 9.8 fL (9.4-12.3); Monocytes Absolute Auto 0.6 X10*3/uL (0.1-1.2); Monocytes Percent Auto 7.2 % (2-11); Neutrophils Absolute Auto 6.5 x10*3/uL (2.0-8.3); Neutrophils Percent Auto 77.2 % (45-73); Platelet Count 251 X10*3/uL (160-400); Red Blood Count 4.37 X10*6/uL (4.20-5.50); Red Cell Distribution Width 12.8 % (11.0-16.0); White Blood Count 8.5 X10*3/uL (4.8-10.8)
[2023-07-04 11:43] LABS: Lithium 1.02 mmol/L (0.60-1.20)
[2023-07-04 11:51] LABS: Alanine Aminotransferase 14 U/L (0-31); Albumin Level 4.7 g/dL (3.5-5.0); Alkaline Phosphatase 98 U/L (39-117); Anion Gap 12 (12-20); Aspartate Amino Transferase 16 U/L (5-31); Bilirubin Total 0.5 mg/dL (0.0-1.0); Blood Urea Nitrogen 17 mg/dL (9-16); Calcium 10.4 mg/dL (8.4-10.2); Carbon Dioxide 26 mmol/L (22-29); Chloride 106 mmol/L (96-108); Estimated Glomerular Filt Rate > 60; Glucose Random 108 mg/dL (60-115); Potassium 4.3 mmol/L (3.3-5.1); Sodium 140 mmol/L (135-145); Total Protein 7.8 g/dL (6.5-8.0)
== END 2023-07-04 10:11 | disposition home or self-care (01) ==
LOC: HO.LAB 10:10
PROVIDERS: PCP Internal Medicine; Visit Provider Psychiatry & Neurology Psychiatry
DX: F25.0 Schizoaffective disorder, bipolar type (principal); Z79.899 Other long term (current) drug therapy
CPT/HCPCS: 36415; 80053; 80178; 85025

== ENCOUNTER → 2023-07-07 11:04 | Outpatient (REF) | payer MEDICARE, MEDICAID, SELFPAY ==
--- NOTE | 2023-07-07 11:08 | HM_ITS ---
* Total procedure in 30 days. Wear time 0.2 days. * During this limited monitoring period, underlying rhythm is sinus. In the provided strips, ventricular rate 91/Min. * No other information available. MTDD
== END ==
LOC: HO.CARD 11:04
PROVIDERS: PCP Internal Medicine; Visit Provider Internal Medicine Cardiovascular Disease
DX: R00.2 Palpitations (principal)
CPT/HCPCS: 93270

== ENCOUNTER → 2023-07-07 11:08 | Outpatient (BNV) | payer MEDICARE, MEDICAID, SELFPAY | PROVIDERS: PCP Internal Medicine; Visit Provider Internal Medicine | DX: R00.2 Palpitations (principal) | CPT/HCPCS: 93272 ==

== ENCOUNTER 2023-07-11 09:11 | Outpatient (REF) | payer MEDICARE, MEDICAID, SELFPAY ==
[2023-07-11 09:25] LABS: MANUAL DIFF FLAG NO
[2023-07-11 09:47] LABS: Basophils Percent Auto 0.6 % (0-2); Eosinophils Absolute Auto 0.2 X10*3/uL (0.0-0.4); Eosinophils Percent Auto 2.8 % (0-4); Hematocrit 40.6 % (37.0-47.0); Hemoglobin 13.3 g/dl (12.0-16.0); Imm Gran Abs Auto 0.03 X10*3/uL (0.00-0.03); Imm Gran Pct Auto 0.4 % (0.0-0.4); Lymphocytes Percent Auto 14.9 % (20-40); Mean Corpuscular HGB Conc 32.8 g/dl (31.0-35.0); Mean Corpuscular Hemoglobin 30.4 pg (27.0-33.0); Mean Corpuscular Volume 92.7 fL (80.0-98.0); Mean Platelet Volume 9.9 fL (9.4-12.3); Monocytes Absolute Auto 0.6 X10*3/uL (0.1-1.2); Monocytes Percent Auto 8.2 % (2-11); Neutrophils Absolute Auto 4.9 x10*3/uL (2.0-8.3); Neutrophils Percent Auto 73.1 % (45-73); Platelet Count 248 X10*3/uL (160-400); Red Blood Count 4.38 X10*6/uL (4.20-5.50); Red Cell Distribution Width 12.5 % (11.0-16.0); White Blood Count 6.7 X10*3/uL (4.8-10.8)
== END 2023-07-11 09:12 | disposition home or self-care (01) ==
LOC: HO.LABR 09:11
PROVIDERS: PCP Internal Medicine; Visit Provider Psychiatry & Neurology Psychiatry
DX: F25.0 Schizoaffective disorder, bipolar type (principal)
CPT/HCPCS: 36415; 85025

== ENCOUNTER 2023-07-17 09:11 | Outpatient (REF) | payer MEDICARE, MEDICAID, SELFPAY ==
[2023-07-17 09:21] LABS: MANUAL DIFF FLAG NO
[2023-07-17 10:03] LABS: Basophils Percent Auto 0.5 % (0-2); Eosinophils Absolute Auto 0.2 X10*3/uL (0.0-0.4); Eosinophils Percent Auto 3.3 % (0-4); Hematocrit 41.9 % (37.0-47.0); Hemoglobin 13.6 g/dl (12.0-16.0); Imm Gran Abs Auto 0.01 X10*3/uL (0.00-0.03); Imm Gran Pct Auto 0.2 % (0.0-0.4); Lymphocytes Absolute Auto 1.1 X10*3/uL (1.2-4.9); Lymphocytes Percent Auto 18.4 % (20-40); Mean Corpuscular HGB Conc 32.5 g/dl (31.0-35.0); Mean Corpuscular Hemoglobin 30.4 pg (27.0-33.0); Mean Corpuscular Volume 93.7 fL (80.0-98.0); Mean Platelet Volume 10.3 fL (9.4-12.3); Monocytes Absolute Auto 0.5 X10*3/uL (0.1-1.2); Monocytes Percent Auto 8.1 % (2-11); Neutrophils Absolute Auto 4.2 x10*3/uL (2.0-8.3); Neutrophils Percent Auto 69.5 % (45-73); Platelet Count 228 X10*3/uL (160-400); Red Blood Count 4.47 X10*6/uL (4.20-5.50); Red Cell Distribution Width 12.4 % (11.0-16.0)
== END 2023-07-17 09:12 | disposition home or self-care (01) ==
LOC: HO.LABR 09:11
PROVIDERS: Visit Provider Psychiatry & Neurology Psychiatry
DX: F25.0 Schizoaffective disorder, bipolar type (principal)
CPT/HCPCS: 36415; 85025

== ENCOUNTER → 2023-07-21 10:57 | Outpatient (REF) | payer MEDICARE, MEDICAID, SELFPAY ==
--- NOTE | 2023-07-21 10:59 | CA_ITS ---
Transthoracic Echocardiogram Amended Patient (Last, First, Middle): Anay Martinez M Gender: Female Date of : 1975 Age: 48 Procedure Date: 07/21/2023 Procedure Type: Transthoracic Echocardiogram Location: OP Height: 160.02 cm Weight: 77.11 kg BSA: 1.80 m2 Heart Rate: 85 bpm BP: 135 / 70 mmHg Senior Grants Officer: FAUSTINA Referring MD: Anton Medellin MD Symptoms: R00.2 - Palpitations Study Quality: Fair ECG Rhythm: Sinus Conclusions: - The left ventricular systolic function is normal. The visually estimated ejection fraction is between 60-65%. - No obvious valvular pathology seen on this study. Findings Left Ventricle Normal left ventricular cavity size. There is mildly increased left ventricular wall thickness. The left ventricular systolic function is normal. The visually estimated ejection fraction is between 60-65%. There is no evidence of regional wall motion abnormalities. Diastolic function is normal for age. Right Ventricle Normal right ventricular cavity size and systolic function. Atria Both atria are normal in size. Aortic Valve There is a normal trileaflet aortic valve. There is no aortic valve stenosis. There is no aortic valve regurgitation. Mitral Valve The mitral valve appears normal. There is no mitral valve regurgitation. There is no mitral valve stenosis. Pulmonic Valve The pulmonic valve is likely normal. Tricuspid Valve There is trace tricuspid valve regurgitation. There is no evidence of pulmonary hypertension. Great Vessels The asc aorta is normal in size. Venous The inferior vena cava is normal in size and collapses greater than 50% with inspiration. Pericardium/Pleural There is no evidence of pericardial effusion. Prior Study Comparison No significant change compared to prior study dated: 11/03/2019. Recommendations, Care & Conclusions No obvious valvular pathology seen on this study. Measurements 2D Linear Measurements IVSd: 1.11 0.6-0.9/0.6-1.0 cm LVIDd: 4.04 3.9-5.3/4.2-5.9 cm LVIDd Index: 2.24 2.4-3.2/2.2-3.1 cm/m2 LVIDs: 2.70 2.0-3.6 cm LVPWd: 1.22 0.7-1.1 cm Ao Root: 3.10 2.1-3.5 cm LA Diam: 2.80 2.7-3.8/3.0-4.0 cm LAIDs Index: 1.56 1.5-2.3 cm/m2 LV Mass: 200.24 67-162/88-224 g LV Mass Index: 111.24 43-95/49-115 g/m2 LVOT Diam: 1.90 3.0+(-)1.3 cm 2D Volumes LA Vol: 17.40 2D Systolic Function EF 4C: 59.70 >55% EF 2C: 56.80 >55% EF BiP: 58.70 >55% Mitral Valve MV Pk E: 1.03 MV PK A: 0.94 MV Decel Time: 228.00 E/A: 1.10 E'Lateral: 8.49 E'Medial: 9.57 E/E' Med: 10.80 E/E' Lat: 12.10 PHT: 67.00 MVA PHT: 3.28 Decel Reynolds: 4.52 Aortic Valve AoV Pk Anuj: 1.63 AoV Mn Anuj: 1.15 AoV VTI: 0.31 AoV Pk Grad: 11.00 Aov Mn Grad: 6.00 DEBBY Cont.VTI: 2.34 LVOT LVOT Pk Anuj: 1.45 LVOT Mn Anuj: 0.96 LVOT VTI: 0.26 LVOT Pk Grad: 8.00 LVOT Mn Grad: 5.00 LVOT Diam: 1.90 LVOT Area: 2.84 Diastolic Function MV Pk E: 1.03 MV Pk A: 0.94 E/A: 1.10 E'Medial: 9.57 E/E' Med: 10.80 E' Laterial: 8.49 E/E' Lat: 12.10 Right Ventricle TAPSE (mm): 26.30 TVS' Anuj: 13.70 Tricuspid Valve RA Press: 3.00 Great Vessels Aorta Ao Root-2D: 3.10 2.0-3.7 cm Sinus of Valsalva: 3.10 2.0-3.5 cm Ao Asc: 3.00 2.1-3.4 cm Pulmonary Valve PV Pk Anuj: 1.13 Peak PV Grad: 5.00 Updated in Other Vendor System with Status of Final Elder Singh MD electronically signed on 07/23/2023 10:38:01 AM with status of Final
== END ==
LOC: HO.CARD 10:57
PROVIDERS: PCP Internal Medicine; Visit Provider Internal Medicine Cardiovascular Disease
DX: R00.2 Palpitations (principal)
CPT/HCPCS: 93306

== ENCOUNTER → 2023-07-21 10:59 | Outpatient (BNV) | payer MEDICARE, MEDICAID, SELFPAY | PROVIDERS: PCP Internal Medicine; Visit Provider Internal Medicine | DX: R94.31 Abnormal electrocardiogram [ECG] [EKG] (principal) | CPT/HCPCS: 93306 ==

== ENCOUNTER 2023-07-25 10:02 | Outpatient (REF) | payer MEDICARE, MEDICAID, SELFPAY ==
[2023-07-25 10:09] LABS: MANUAL DIFF FLAG NO
[2023-07-25 10:21] LABS: Basophils Percent Auto 0.5 % (0-2); Eosinophils Absolute Auto 0.1 X10*3/uL (0.0-0.4); Eosinophils Percent Auto 1.3 % (0-4); Hematocrit 41.8 % (37.0-47.0); Hemoglobin 13.9 g/dl (12.0-16.0); Imm Gran Abs Auto 0.02 X10*3/uL (0.00-0.03); Imm Gran Pct Auto 0.2 % (0.0-0.4); Lymphocytes Absolute Auto 1.1 X10*3/uL (1.2-4.9); Lymphocytes Percent Auto 12.8 % (20-40); Mean Corpuscular HGB Conc 33.3 g/dl (31.0-35.0); Mean Corpuscular Hemoglobin 30.4 pg (27.0-33.0); Mean Corpuscular Volume 91.5 fL (80.0-98.0); Monocytes Absolute Auto 0.6 X10*3/uL (0.1-1.2); Monocytes Percent Auto 6.7 % (2-11); Neutrophils Absolute Auto 6.5 x10*3/uL (2.0-8.3); Neutrophils Percent Auto 78.5 % (45-73); Platelet Count 233 X10*3/uL (160-400); Red Blood Count 4.57 X10*6/uL (4.20-5.50); Red Cell Distribution Width 12.3 % (11.0-16.0); White Blood Count 8.3 X10*3/uL (4.8-10.8)
== END 2023-07-25 10:03 | disposition home or self-care (01) ==
LOC: HO.LAB 10:02
PROVIDERS: PCP Internal Medicine; Visit Provider Psychiatry & Neurology Psychiatry
DX: F25.0 Schizoaffective disorder, bipolar type (principal)
CPT/HCPCS: 36415; 85025

== ENCOUNTER 2023-07-30 09:05 | Outpatient (AMB) | payer MEDICARE, MEDICAID, SELFPAY ==
[2023-07-30 09:00] VITALS: BP 120/74; PULSE 105; O2SAT 97; BMI 30.2
--- NOTE | 2023-07-30 09:00 | MHC.PC.OV ---
Vital Signs 07/30/23 09:00 07/30/23 09:27 Height 5 ft 3 in Weight 170 lb 8 oz BMI 30.2 BP 120/74 Blood Pressure Location Lt brachial Position Sitting Pulse 105 H 96 Pulse Source Pulse Oximeter Pulse Oximetry (%) 97 Oxygen Delivery Method Room Air Intake Visit Reasons: ect Intake Note: Patient is here for a Pre-op for ECT scheduled with Dr. Aguero on to be determined after pre-op visit. . Account Manager Required: No Accompanied by: Self / Same As Patient Allergies Sulfa (Sulfonamide Antibiotics) Allergy (Mild, Verified 07/30/23 09:19) UNKNOWN Medication List - Last Reconciled 07/30/23 by Anoop Tavares PA-C atorvastatin 20 mg PO DAILY cariprazine (Vraylar) 6 mg PO DAILY 30 days cholecalciferol (vitamin D3) 25 mcg PO DAILY clozapine 100 mg PO BEDTIME donepezil 10 mg PO DAILY fluvoxamine 50 mg PO BID levothyroxine 1 tab PO DAILY lithium carbonate ER 300 mg PO DAILY lithium carbonate ER 900 mg (2 x 450 mg) PO BEDTIME lorazepam 0.5 - 1 mg (0.5 - 1 x 1 mg) PO TID olanzapine orally take 4 tabs daily divided doses; 30 days Tobacco use date assessed: 01/12/23 HPI ect HPI Details Patient is a 48-year-old female here today for a preop evaluation. This is the 1st time I am meeting this 48-year-old female with past medical history of schizophrenic affective sorter, hypothyroidism hyperlipidemia. She is due for a CT treatment for her resistant depression and needs PCP preoperative clearance. Of note she did recently have an echocardiogram was did not show structural or valvular abnormality. Ejection fraction of 60%.. [facility] Medical History Hypercholesterolemia Hypothyroid Liver laceration Hip fracture requiring operative repair Liver problem Schizoaffective disorder, bipolar type Depression Elevated cholesterol Surgical History History of surgery on lower extremity History of hip replacement History of tracheostomy History of hip surgery Status post aortic coarctation stent placement H/O rhinoplasty Family History Mother No problems noted. Father No problems noted. Social History Housing: House Are you a primary clinical care leader to a significant other at home: No Do you presently have visiting nurse or other home services: No Alcohol intake: never Patient Tobacco Use Status: Former Tobacco user Tobacco use type: Cigarette e-Cigarette/Vaping Use: Never Used Second Hand Smoke Exposure: No service: No Current occupational status: disabled Cognitive needs: No Hearing needs: No Vision needs: Yes (Glasses) Female Reproductive History Menstrual Age of Menarche: 10 Questionnaire Thrive Questionnaire Date Thrive assessed: 12/04/22 JYOTSNA-7 AMB Questionnaire JYOTSNA-7 Date JYOTSNA - 7 assessed: 12/04/22 Source: Developed by Drs. Adam Donohue, Gracie Toure, Rishi Abdi and colleagues, with an educational pranay from [employer]. Review of Systems Const Denies headache(s) Eyes Denies loss of vision ENT Denies vertigo, Denies dizziness, Denies headache(s) and Denies sore throat Card Denies chest pain, Denies leg edema and Denies lightheadedness Resp Denies cough, Denies hemoptysis and Denies wheezing GI Denies abdominal pain, Denies melena, Denies constipation, Denies diarrhea and Denies vomiting Denies urinary frequency, Denies dysuria and Denies urinary urgency Musc Denies arthralgias, Denies joint swelling, Denies numbness and Denies tingling Neuro Denies Abnormal speech present, Denies behavioral changes, Denies vertigo, Denies dizziness, Denies headache(s), Denies loss of vision, Denies memory loss, Denies numbness and Denies tingling Psych Denies anxiety, Denies behavioral changes, Denies depression, Denies memory loss and Denies panic attacks Raul/Lymph Denies easy bleeding and Denies easy bruising Aller/Immun Denies wheezing Physical exam (Primary Care) Vital Signs: Last Vital Signs Pulse 96 07/30/23 09:27 BP 120/74 07/30/23 09:00 Pulse Ox 97 07/30/23 09:00 Oxygen Delivery Method Room Air 07/30/23 09:00 BMI result Body Mass Index 30.2 Tobacco/Smoking Status: Tobacco use Status Tobacco use date assessed 01/12/23 07/30/23 09:01 Patient Tobacco Use Status Former Tobacco user 07/30/23 09:01 Tobacco use type Cigarette 07/30/23 09:01 e-Cigarette/Vaping Use Never Used 07/30/23 09:01 Thrive Assessment: Date of Thrive Assessment Date Thrive assessed 12/04/22 07/30/23 09:01 Const General: healthy appearing, no acute distress, alert and awake Nutritional Appearance: well nourished Orientation/consciousness: oriented to person, oriented to place and oriented to time HENMT Ears: TM's normal bilaterally General nose exam: Normal nasal mucous membranes and turbinates present Eyes Conjunctivae: conjunctivae normal Sclerae: sclerae normal Pupils: Equal, round and reactive pupils present Neck Neck: Yes no lymphadenopathy and Yes no JVD Thyroid: Thyroid normal Carotids: no bruits Resp Effort & Inspection: normal respiratory effort and not tachypneic Auscultation: no crackles, no rales, no rhonchi and no wheezes Cardio Rate: regular rate Rhythm: regular rhythm Heart sounds: no murmurs and normal S1 and S2 GI Palpation (GI): Soft to palpation, nontender, no hepatomegaly and no splenomegaly Auscultation: normal bowel sounds Skin General skin exam: no rashes or lesions noted and dry skin Neuro General: oriented to person, oriented to place and oriented to time Cranial nerves: Yes Equal, round and reactive pupils present Speech: No Abnormal speech present Gait exam (Neuro): Normal gait present Motor exam (neuro): no tremor noted Extrem Right upper extremity: full ROM Left upper extremity: full ROM Right lower extremity: full ROM; no edema Left lower extremity: full ROM; no edema Psych Mental Status: mental status grossly normal Speech and movement: Normal speech and movement present Affect: normal affect Attitude: cooperative Thought process: Normal thought process present Assessment and Plan Assessment & Plan (1) Preoperative clearance: Code(s): Z01.818 - Encounter for other preprocedural examination Plan: Patient due for ECT treatment for her depression. Today's vitals stable. Most recent echocardiogram showing no cardiac abnormality. Patient medically clear for ECT treatment (2) Schizoaffective disorder, bipolar type: Comment: bipolar Code(s): F25.0 - Schizoaffective disorder, bipolar type Plan: As above Orders: Orders Comprehensive Met. Panel Today Z01.818 - Encounter for other preprocedural examination Complete Blood Count no Diff Today Z01.818 - Encounter for other preprocedural examination Coding Level of Care Code Est Pt Level 3 (83227) Diagnoses Preoperative clearance Z01.818 Schizoaffective disorder, bipolar type F25.0
[2023-07-30 09:27] VITALS: PULSE 96
== END 2023-07-30 09:27 | disposition home or self-care (01) ==
PROVIDERS: PCP Internal Medicine; Visit Provider Physician Assistant
DX: Z01.818 Encounter for other preprocedural examination (principal); F25.0 Schizoaffective disorder, bipolar type
CPT/HCPCS: 99213

== ENCOUNTER 2023-07-30 09:33 | Outpatient (REF) | payer MEDICARE, MEDICAID, SELFPAY ==
[2023-07-30 10:33] LABS: Hemoglobin 13.9 g/dl (12.0-16.0); Mean Corpuscular HGB Conc 33.1 g/dl (31.0-35.0); Mean Corpuscular Hemoglobin 30.9 pg (27.0-33.0); Mean Corpuscular Volume 93.3 fL (80.0-98.0); Mean Platelet Volume 10.9 fL (9.4-12.3); Platelet Count 244 X10*3/uL (160-400); Red Cell Distribution Width 12.5 % (11.0-16.0); White Blood Count 10.2 X10*3/uL (4.8-10.8)
[2023-07-30 11:17] LABS: Alanine Aminotransferase 11 U/L (0-31); Albumin Level 4.8 g/dL (3.5-5.0); Alkaline Phosphatase 93 U/L (39-117); Anion Gap 14 (12-20); Aspartate Amino Transferase 15 U/L (5-31); Bilirubin Total 0.4 mg/dL (0.0-1.0); Blood Urea Nitrogen 12 mg/dL (9-16); Calcium 10.8 mg/dL (8.4-10.2); Carbon Dioxide 24 mmol/L (22-29); Chloride 107 mmol/L (96-108); Estimated Glomerular Filt Rate 59; Glucose Random 97 mg/dL (60-115); Potassium 4.3 mmol/L (3.3-5.1); Sodium 141 mmol/L (135-145); Total Protein 7.9 g/dL (6.5-8.0)
== END 2023-07-30 09:34 | disposition home or self-care (01) ==
LOC: HO.LAB 09:33
PROVIDERS: Absent Provider Psychiatry & Neurology Psychiatry; Visit Provider Physician Assistant
DX: Z01.818 Encounter for other preprocedural examination (principal)
CPT/HCPCS: 36415; 80053; 85027

== ENCOUNTER 2023-08-07 10:13 | Outpatient (REF) | payer MEDICARE, MEDICAID, SELFPAY ==
[2023-08-07 10:25] LABS: MANUAL DIFF FLAG NO
[2023-08-07 11:08] LABS: Basophils Absolute Auto 0.1 X10*3/uL (0.0-0.2); Basophils Percent Auto 0.7 % (0-2); Eosinophils Absolute Auto 0.1 X10*3/uL (0.0-0.4); Eosinophils Percent Auto 1.7 % (0-4); Hematocrit 39.9 % (37.0-47.0); Hemoglobin 13.1 g/dl (12.0-16.0); Imm Gran Abs Auto 0.03 X10*3/uL (0.00-0.03); Imm Gran Pct Auto 0.4 % (0.0-0.4); Lymphocytes Absolute Auto 1.3 X10*3/uL (1.2-4.9); Lymphocytes Percent Auto 15.4 % (20-40); Mean Corpuscular HGB Conc 32.8 g/dl (31.0-35.0); Mean Corpuscular Hemoglobin 30.2 pg (27.0-33.0); Mean Corpuscular Volume 91.9 fL (80.0-98.0); Mean Platelet Volume 10.5 fL (9.4-12.3); Monocytes Absolute Auto 0.6 X10*3/uL (0.1-1.2); Monocytes Percent Auto 7.4 % (2-11); Neutrophils Absolute Auto 6.3 x10*3/uL (2.0-8.3); Neutrophils Percent Auto 74.4 % (45-73); Platelet Count 260 X10*3/uL (160-400); Red Blood Count 4.34 X10*6/uL (4.20-5.50); Red Cell Distribution Width 12.5 % (11.0-16.0); White Blood Count 8.4 X10*3/uL (4.8-10.8)
== END 2023-08-07 10:14 | disposition home or self-care (01) ==
LOC: HO.LABR 10:13
PROVIDERS: PCP Internal Medicine; Visit Provider Psychiatry & Neurology Psychiatry
DX: F25.0 Schizoaffective disorder, bipolar type (principal)
CPT/HCPCS: 36415; 85025

== ENCOUNTER 2023-08-14 06:04 | Day surgery (SDC) | payer MEDICARE, MEDICAID, SELFPAY ==
[2023-08-14] VITALS (7 sets, daily range): BP systolic 114–164; BP diastolic 57–80; PULSE 59–100; RESP 14–20; TEMP 36.6–37.3; O2SAT 96–100; BMI 29.3
--- NOTE | 2023-08-14 06:51 | MHC.SHP ---
Pre-Procedural Eval Section A Date of Service: 08/14/23 Changes since office visit: Yes Patient answered all questions; No Cold of Flu in the past 2 weeks, No New Medical Problems and No Changes in Medication The History & Physical has been completed within 30 days and I have reviewed it.: Yes Section B Chief Complaint: Major depressive disorder, recurrent, severe with Allergies: Allergies Allergy/AdvReac Type Severity Reaction Status Date / Time Sulfa (Sulfonamide Allergy Mild UNKNOWN Verified 07/30/23 09:19 Antibiotics) Plan I have reviewed the history and physical and performed a pertinent physical examination on my patient. No changes have occurred unless specified. Time Spent With Patient Time: Total time managing care of this patient today ____ minutes.
--- NOTE | 2023-08-14 06:58 | HO.ECTPROC ---
ECT Procedure Note Diagnosis/Treatment Date of Service: 08/14/23 Diagnosis: Bipolar disorder Previous ECT Date: 06/03/23 Treatment: Maintenance Interval Clinical Notes: pt with periods of paranoia feels better withh ect Time: Total time managing care of this patient today ____ minutes. ECT Settings Device: THYMATRON DGx Electrode Placement: Bifrontal Program/Pulse Width: 0.50 Energy Percent: 100 Seizure Duration By EEG (in seconds): 51 Medications Administration General Anesthetic: Etomidate (16) Muscle Relaxant: Succinylcholine (100) Ancillary Medications Analgesics: Torodol - Pre ECT (15) Anti-emetics: Zofran - Pre ECT (4) Miscillaneous Medications: Propofol (30) Airway Management Airway Management: Bag Mask Ventilation Treatment Recommendations No Changes Recommended: No change Program/Pulse Width: 0.50 Pt Tolerated Procedure w/o Issue: Yes
[2023-08-14 07:48] LABS: MANUAL DIFF FLAG NO
[2023-08-14 08:02] LABS: Estimated Average Glucose 108 mg/dL; Hemoglobin A1c % 5.4 % (<6.0)
[2023-08-14 08:10] LABS: Basophils Percent Auto 0.5 % (0-2); Eosinophils Absolute Auto 0.1 X10*3/uL (0.0-0.4); Eosinophils Percent Auto 0.7 % (0-4); Hematocrit 40.3 % (37.0-47.0); Hemoglobin 13.2 g/dl (12.0-16.0); Imm Gran Abs Auto 0.02 X10*3/uL (0.00-0.03); Imm Gran Pct Auto 0.2 % (0.0-0.4); Lymphocytes Absolute Auto 0.7 X10*3/uL (1.2-4.9); Lymphocytes Percent Auto 8.7 % (20-40); Mean Corpuscular HGB Conc 32.8 g/dl (31.0-35.0); Mean Corpuscular Hemoglobin 30.6 pg (27.0-33.0); Mean Corpuscular Volume 93.5 fL (80.0-98.0); Mean Platelet Volume 10.3 fL (9.4-12.3); Monocytes Absolute Auto 0.5 X10*3/uL (0.1-1.2); Neutrophils Absolute Auto 7.1 x10*3/uL (2.0-8.3); Neutrophils Percent Auto 83.9 % (45-73); Platelet Count 233 X10*3/uL (160-400); Red Blood Count 4.31 X10*6/uL (4.20-5.50); Red Cell Distribution Width 13.2 % (11.0-16.0); White Blood Count 8.5 X10*3/uL (4.8-10.8)
[2023-08-14 08:15] LABS: Alanine Aminotransferase 11 U/L (0-31); Albumin Level 4.3 g/dL (3.5-5.0); Alkaline Phosphatase 89 U/L (39-117); Anion Gap 12 (12-20); Aspartate Amino Transferase 14 U/L (5-31); Bilirubin Total 0.6 mg/dL (0.0-1.0); Blood Urea Nitrogen 12 mg/dL (9-16); Calcium 9.8 mg/dL (8.4-10.2); Carbon Dioxide 24 mmol/L (22-29); Chloride 110 mmol/L (96-108); Creatinine Clr Calc Pharmacy 64.7; Estimated Glomerular Filt Rate > 60; Glucose Random 131 mg/dL (60-115); Potassium 4.1 mmol/L (3.3-5.1); Sodium 142 mmol/L (135-145); Total Protein 7.1 g/dL (6.5-8.0)
--- NOTE | 2023-08-14 08:20 | HO.ANESPROP2 ---
[facility] Active Problems Active Problems: All Active Problems (Updated 06/30/23 @ 14:17 by Liam Valentine MD) Preoperative clearance (Acute) Left foot pain (Acute) Tinea pedis (Acute) Left foot pain (Acute) Shortness of breath (Acute) Hyperkalemia (Acute) Diarrhea (Acute) Palpitation (Acute) Eczema (Acute) Postmenopausal bleeding (Acute) Amenorrhea (Acute) Well woman exam (Acute) Menopause (Acute) Complex ovarian cyst (Acute) Elevated blood pressure reading without diagnosis of hypertension (Acute) Hypercholesterolemia (Acute) Hypothyroid (Acute) Schizoaffective disorder, bipolar type (Acute) Past Medical History Medical History Hypercholesterolemia Hypothyroid Liver laceration Hip fracture requiring operative repair Liver problem Schizoaffective disorder, bipolar type Depression Elevated cholesterol Family History Family History Mother No problems noted. Father No problems noted. Family history of problems with anesthesia: No Surgical History Surgical History History of surgery on lower extremity History of hip replacement History of tracheostomy History of hip surgery Status post aortic coarctation stent placement H/O rhinoplasty History of Problems with Anesthesia: No Social History Social History Housing: House Are you a primary healthcare or medical to a significant other at home: No Do you presently have visiting nurse or other home services: No Alcohol intake: never Patient Tobacco Use Status: Former Tobacco user Tobacco use type: Cigarette e-Cigarette/Vaping Use: Never Used Second Hand Smoke Exposure: No service: No Current occupational status: disabled Cognitive needs: No Hearing needs: No Vision needs: Yes (Glasses) Meds Allergies Allergy/AdvReac Type Severity Reaction Status Date / Time Sulfa (Sulfonamide Allergy Mild UNKNOWN Verified 07/30/23 09:19 Antibiotics) Home Medications Medication Instructions Recorded Confirmed Last Taken Type levothyroxine 112 mcg tablet 1 tab PO DAILY 09/04/20 07/30/23 06/18/23 15:00 History cholecalciferol (vitamin D3) 25 25 mcg PO DAILY 06/23/23 07/30/23 Unknown History mcg (1,000 unit) capsule Exam Exam Date and Time: August 14, 2023 0820 Height,Weight and Vital Signs: Height 5 ft 2 in Weight 72.575 kg Last Vital Signs Temp 98.3 F 08/14/23 08:06 Pulse 71 08/14/23 08:06 Resp 17 08/14/23 08:06 BP 114/57 L 08/14/23 08:06 Pulse Ox 96 08/14/23 08:06 O2 Del Method Room Air 08/14/23 08:06 O2 Flow Rate 2 08/14/23 07:50 Pertinent Lab Results Pertinent Lab Results: Laboratory Tests 08/14/23 07:34 WBC 8.5 RBC 4.31 Hgb 13.2 Hct 40.3 MCV 93.5 MCH 30.6 MCHC 32.8 RDW 13.2 Plt Count 233 MPV 10.3 Immature Gran % (Auto) 0.2 Neut % (Auto) 83.9 H Lymph % (Auto) 8.7 L [place] % (Auto) 6.0 Eos % (Auto) 0.7 Baso % (Auto) 0.5 Lymph # (Auto) 0.7 L [place] # (Auto) 0.5 Eos # (Auto) 0.1 Baso # (Auto) 0.0 Abs Immat Gran (auto) 0.02 Absolute Neuts (auto) 7.1 Absolute Nucleated RBC 0.000 Nucleated RBC % (auto) 0.0 Sodium 142 Potassium 4.1 Chloride 110 H Carbon Dioxide 24 Anion Gap 12 BUN 12 Creatinine 0.97 Estim Creat Clear Calc 64.7 Estimated GFR > 60 Random Glucose 131 H Estimat Average Glucose 108 Hemoglobin A1c % 5.4 Calcium 9.8 D Total Bilirubin 0.6 AST 14 ALT 11 Alkaline Phosphatase 89 Total Protein 7.1 Albumin 4.3 Airway Mallampati Class: II TM Dist: >3cm Neck ROM: Full Heart: RRR Lungs: CTA Assessment and Plan Assessment Anesthesia Assessment: Anesthesia Plan Discussed Final Anesthetic Review Family History of Problems with Anesthesia: No History of Problems with Anesthesia: No NPO: Yes ASA Class: III Final Preanesthetic Review: Meds/Allgs Chart Reviewed, Consent Obtained/Reviewed and Anes Risks/Benef Reviewed Patient Risk: Low Procedure Risk: Low Anesthetic Plan Anesthetic Plan: GA Disposition: Standard PACU
--- NOTE | 2023-08-14 08:22 | HO.POSTANES ---
Post Anesthesia Evaluation Post Anesthesia Evaluation Date of Service: 08/14/23 Vital Signs: Vital Signs Temp Pulse Resp BP Pulse Ox O2 Del Method O2 Flow Rate 08/14/23 08:06 98.3 F 71 17 114/57 L 96 Room Air 08/14/23 07:50 67 16 124/66 97 Nasal Cannula with ETCO2 2 08/14/23 07:35 76 16 124/66 100 Nasal Cannula with ETCO2 2 08/14/23 07:30 68 16 125/68 100 Nasal Cannula with ETCO2 2 08/14/23 07:25 69 14 114/68 100 Nasal Cannula with ETCO2 2 08/14/23 07:20 99.1 F 59 16 114/61 100 Nasal Cannula with ETCO2 2 08/14/23 06:24 97.9 F 100 20 164/80 H 98 Room Air Anesthesia: General Mental Status: Awake Pain Control: Satisfactory Nausea/Vomiting: None Hydration: Adequate Anesthesia-Related Issues: No Anes. Related Issues
[2023-08-14 08:29] LABS: TSH reflex Free T4 2.17 uIU/mL (0.32-4.0)
[2023-08-19 07:14] LABS: Clozapine (Clozaril) 263 mcg/L; Norclozapine 178 mcg/L (25-400)
== END 2023-08-14 08:30 | disposition home or self-care (01) ==
PROVIDERS: PCP Nurse Practitioner Family; Visit Provider Psychiatry & Neurology Psychiatry
PROC: (CPT 90870; principal; 2023-08-14 08:00)
DX: F25.0 Schizoaffective disorder, bipolar type (principal); E03.9 Hypothyroidism, unspecified; E78.00 Pure hypercholesterolemia, unspecified; Z79.899 Other long term (current) drug therapy; Z88.2 Allergy status to sulfonamides; Z87.891 Personal history of nicotine dependence
CPT/HCPCS: 36415; 80053; 80159; 83036; 84443; 85025; 90870; J0330; J2405

== ENCOUNTER → 2023-08-14 06:04 | Outpatient (BNV) | payer MEDICARE, MEDICAID, SELFPAY | PROVIDERS: PCP Nurse Practitioner Family; Visit Provider Psychiatry & Neurology Psychiatry | DX: F25.0 Schizoaffective disorder, bipolar type (principal) | CPT/HCPCS: 90870 ==

== ENCOUNTER 2023-08-17 10:00 | Outpatient (REF) | payer MEDICARE, MEDICAID, SELFPAY ==
[2023-08-17 10:28] LABS: MANUAL DIFF FLAG NO
[2023-08-17 11:09] LABS: Basophils Absolute Auto 0.1 X10*3/uL (0.0-0.2); Basophils Percent Auto 0.6 % (0-2); Eosinophils Absolute Auto 0.2 X10*3/uL (0.0-0.4); Eosinophils Percent Auto 2.2 % (0-4); Hematocrit 39.9 % (37.0-47.0); Hemoglobin 12.8 g/dl (12.0-16.0); Imm Gran Abs Auto 0.03 X10*3/uL (0.00-0.03); Imm Gran Pct Auto 0.4 % (0.0-0.4); Lymphocytes Absolute Auto 1.2 X10*3/uL (1.2-4.9); Mean Corpuscular HGB Conc 32.1 g/dl (31.0-35.0); Mean Corpuscular Hemoglobin 30.1 pg (27.0-33.0); Mean Corpuscular Volume 93.9 fL (80.0-98.0); Mean Platelet Volume 10.5 fL (9.4-12.3); Monocytes Absolute Auto 0.5 X10*3/uL (0.1-1.2); Monocytes Percent Auto 6.9 % (2-11); Neutrophils Absolute Auto 5.8 x10*3/uL (2.0-8.3); Neutrophils Percent Auto 74.9 % (45-73); Platelet Count 235 X10*3/uL (160-400); Red Blood Count 4.25 X10*6/uL (4.20-5.50); Red Cell Distribution Width 13.4 % (11.0-16.0); White Blood Count 7.7 X10*3/uL (4.8-10.8)
== END 2023-08-17 10:01 | disposition home or self-care (01) ==
LOC: HO.LABR 10:00
PROVIDERS: PCP Internal Medicine; Visit Provider Psychiatry & Neurology Psychiatry
DX: F25.0 Schizoaffective disorder, bipolar type (principal)
CPT/HCPCS: 36415; 85025

== ENCOUNTER 2023-08-22 08:56 | Outpatient (REF) | payer MEDICARE, MEDICAID, SELFPAY ==
[2023-08-22 09:17] LABS: MANUAL DIFF FLAG NO
[2023-08-22 09:44] LABS: Basophils Absolute Auto 0.1 X10*3/uL (0.0-0.2); Basophils Percent Auto 0.7 % (0-2); Eosinophils Absolute Auto 0.1 X10*3/uL (0.0-0.4); Eosinophils Percent Auto 1.7 % (0-4); Hemoglobin 13.2 g/dl (12.0-16.0); Imm Gran Abs Auto 0.02 X10*3/uL (0.00-0.03); Imm Gran Pct Auto 0.3 % (0.0-0.4); Lymphocytes Absolute Auto 1.1 X10*3/uL (1.2-4.9); Lymphocytes Percent Auto 13.9 % (20-40); Mean Corpuscular Hemoglobin 30.6 pg (27.0-33.0); Mean Corpuscular Volume 92.8 fL (80.0-98.0); Mean Platelet Volume 10.1 fL (9.4-12.3); Monocytes Absolute Auto 0.6 X10*3/uL (0.1-1.2); Monocytes Percent Auto 7.7 % (2-11); Neutrophils Absolute Auto 5.8 x10*3/uL (2.0-8.3); Neutrophils Percent Auto 75.7 % (45-73); Platelet Count 253 X10*3/uL (160-400); Red Blood Count 4.31 X10*6/uL (4.20-5.50); Red Cell Distribution Width 13.4 % (11.0-16.0); White Blood Count 7.6 X10*3/uL (4.8-10.8)
== END 2023-08-22 08:57 | disposition home or self-care (01) ==
LOC: HO.LABR 08:56
PROVIDERS: Visit Provider Psychiatry & Neurology Psychiatry
DX: F25.0 Schizoaffective disorder, bipolar type (principal)
CPT/HCPCS: 36415; 85025

== ENCOUNTER 2023-08-26 06:03 | Day surgery (SDC) | payer MEDICARE, MEDICAID, SELFPAY ==
[2023-08-26 06:26] VITALS: BP 147/70; PULSE 94; RESP 20; TEMP 36.6; O2SAT 98; BMI 30.1
--- NOTE | 2023-08-26 06:54 | P.CONAN_ITS ---
[facility] Active Problems Active Problems: All Active Problems (Updated 06/30/23 @ 14:17 by Liam Valentine MD) Preoperative clearance (Acute) Left foot pain (Acute) Tinea pedis (Acute) Left foot pain (Acute) Shortness of breath (Acute) Hyperkalemia (Acute) Diarrhea (Acute) Palpitation (Acute) Eczema (Acute) Postmenopausal bleeding (Acute) Amenorrhea (Acute) Well woman exam (Acute) Menopause (Acute) Complex ovarian cyst (Acute) Elevated blood pressure reading without diagnosis of hypertension (Acute) Hypercholesterolemia (Acute) Hypothyroid (Acute) Schizoaffective disorder, bipolar type (Acute) Past Medical History Medical History Hypercholesterolemia Hypothyroid Liver laceration Hip fracture requiring operative repair Liver problem Schizoaffective disorder, bipolar type Depression Elevated cholesterol Family History Family History Mother No problems noted. Father No problems noted. Family history of problems with anesthesia: No Surgical History Surgical History History of surgery on lower extremity History of hip replacement History of tracheostomy History of hip surgery Status post aortic coarctation stent placement H/O rhinoplasty History of Problems with Anesthesia: No Social History Social History Housing: House Are you a primary care coordination manager to a significant other at home: No Do you presently have visiting nurse or other home services: No Alcohol intake: never Patient Tobacco Use Status: Former Tobacco user Tobacco use type: Cigarette e-Cigarette/Vaping Use: Never Used Second Hand Smoke Exposure: No Advance Directives: No Advance Directives Information Provided: Yes service: No Current occupational status: disabled Cognitive needs: No Hearing needs: No Vision needs: Yes (Glasses) Meds Allergies Allergy/AdvReac Type Severity Reaction Status Date / Time Sulfa (Sulfonamide Allergy Mild UNKNOWN Verified 07/30/23 09:19 Antibiotics) Home Medications Medication Instructions Recorded Confirmed Last Taken Type cholecalciferol (vitamin D3) 25 25 mcg PO DAILY 06/23/23 07/30/23 Unknown History mcg (1,000 unit) capsule Exam Exam Date and Time: August 26, 2023 0654 Height,Weight and Vital Signs: Height 5 ft 3 in Weight 77.111 kg Last Vital Signs Temp 97.8 F 08/26/23 06:26 Pulse 94 08/26/23 06:26 Resp 20 08/26/23 06:26 BP 147/70 H 08/26/23 06:26 Pulse Ox 98 08/26/23 06:26 O2 Del Method Room Air 08/26/23 06:26 Airway Mallampati Class: II TM Dist: >3cm Neck ROM: Full Heart: rrr Lungs: cta Assessment and Plan Assessment Anesthesia Assessment: Anesthesia Plan Discussed and Chart Reviewed Final Anesthetic Review Family History of Problems with Anesthesia: No History of Problems with Anesthesia: No NPO: Yes ASA Class: III Final Preanesthetic Review: No Changes in Pt Med Stat, Meds/Allgs Chart Reviewed and Consent Obtained/Reviewed Patient Risk: Intermediate Procedure Risk: Intermediate Anesthetic Plan Anesthetic Plan: GA Disposition: Standard PACU
--- NOTE | 2023-08-26 07:11 | MHC.SHP ---
Pre-Procedural Eval Section A Date of Service: 08/26/23 The patient is an INPATIENT: No Changes since office visit: Yes Cold of Flu in the past 2 weeks, Yes New Medical Problems, Yes Changes in Medication and Yes Patient answered all questions The History & Physical has been completed within 30 days and I have reviewed it.: No Section B Chief Complaint: depression Allergies: Allergies Allergy/AdvReac Type Severity Reaction Status Date / Time Sulfa (Sulfonamide Allergy Mild UNKNOWN Verified 07/30/23 09:19 Antibiotics) Plan I have reviewed the history and physical and performed a pertinent physical examination on my patient. No changes have occurred unless specified. Time Spent With Patient Time: Total time managing care of this patient today ____ minutes.
--- NOTE | 2023-08-26 07:12 | HO.ECTPROC ---
ECT Procedure Note Diagnosis/Treatment Date of Service: 08/26/23 Diagnosis: Schizoaffective Disorder Previous ECT Date: 08/14/23 Treatment: Maintenance Interval Clinical Notes: the patient reported improvement of her mood wiht Clozaril, no active depressive symptoms. No side effects with previous ECT. Procedure done without any complications, woke up without any agitation. Time: Total time managing care of this patient today __30__ minutes. ECT Settings Device: THYMATRON DGx Electrode Placement: Bitemporal Program/Pulse Width: 0.25 Energy Percent: 90 Seizure Duration By EEG (in seconds): 58 By Motor Observation (in seconds): 21 Medications Administration General Anesthetic: Etomidate (16) Muscle Relaxant: Succinylcholine (100) Ancillary Medications Analgesics: Torodol - Pre ECT Anti-emetics: Zofran - Pre ECT Miscillaneous Medications: Propofol Airway Management Airway Management: Bag Mask Ventilation Treatment Recommendations No Changes Recommended: No change Pt Tolerated Procedure w/o Issue: Yes
[2023-08-26 07:27] VITALS: BP 116/48; PULSE 53; RESP 19; TEMP 37.4; O2SAT 99
[2023-08-26 07:32] VITALS: BP 118/61; PULSE 77; RESP 14; O2SAT 99
[2023-08-26 07:37] VITALS: BP 122/60; PULSE 69; RESP 10; O2SAT 100
[2023-08-26 07:42] VITALS: BP 119/68; PULSE 771; RESP 12; O2SAT 100
[2023-08-26 07:57] VITALS: BP 123/63; PULSE 71; RESP 14; TEMP 37.4; O2SAT 98
== END 2023-08-26 08:11 | disposition home or self-care (01) ==
PROVIDERS: PCP Nurse Practitioner Family; Visit Provider Psychiatry & Neurology Psychiatry
PROC: (CPT 90870; principal; 2023-08-26 08:00)
DX: F25.0 Schizoaffective disorder, bipolar type (principal); E03.9 Hypothyroidism, unspecified; E78.00 Pure hypercholesterolemia, unspecified; Z79.899 Other long term (current) drug therapy; Z88.2 Allergy status to sulfonamides; Z87.891 Personal history of nicotine dependence
CPT/HCPCS: 90870; J0330; J1885; J2405

== ENCOUNTER → 2023-08-26 06:03 | Outpatient (BNV) | payer MEDICARE, MEDICAID, SELFPAY | PROVIDERS: PCP Nurse Practitioner Family; Visit Provider Psychiatry & Neurology Psychiatry | DX: F33.3 Major depressive disorder, recurrent, severe with psychotic symptoms (principal) | CPT/HCPCS: 90870 ==

== ENCOUNTER 2023-08-28 09:54 | Outpatient (REF) | payer MEDICARE, MEDICAID, SELFPAY | END 2023-08-28 09:55 | disposition home or self-care (01) | LOC: HO.LABR 09:54 | PROVIDERS: PCP Internal Medicine; Visit Provider Psychiatry & Neurology Psychiatry | DX: F25.0 Schizoaffective disorder, bipolar type (principal) | CPT/HCPCS: 36415; 85025 ==

== ENCOUNTER 2023-09-02 10:45 | Outpatient (REF) | payer MEDICARE, MEDICAID, SELFPAY ==
[2023-09-02 11:10] LABS: MANUAL DIFF FLAG NO
[2023-09-02 11:53] LABS: Basophils Percent Auto 0.4 % (0-2); Eosinophils Absolute Auto 0.1 X10*3/uL (0.0-0.4); Eosinophils Percent Auto 1.5 % (0-4); Hematocrit 39.9 % (37.0-47.0); Hemoglobin 13.2 g/dl (12.0-16.0); Imm Gran Abs Auto 0.04 X10*3/uL (0.00-0.03); Imm Gran Pct Auto 0.4 % (0.0-0.4); Lymphocytes Absolute Auto 1.3 X10*3/uL (1.2-4.9); Lymphocytes Percent Auto 14.5 % (20-40); Mean Corpuscular HGB Conc 33.1 g/dl (31.0-35.0); Mean Corpuscular Hemoglobin 31.3 pg (27.0-33.0); Mean Corpuscular Volume 94.5 fL (80.0-98.0); Mean Platelet Volume 9.6 fL (9.4-12.3); Monocytes Absolute Auto 0.7 X10*3/uL (0.1-1.2); Monocytes Percent Auto 7.8 % (2-11); Neutrophils Absolute Auto 6.7 x10*3/uL (2.0-8.3); Neutrophils Percent Auto 75.4 % (45-73); Platelet Count 251 X10*3/uL (160-400); Red Blood Count 4.22 X10*6/uL (4.20-5.50); Red Cell Distribution Width 14.2 % (11.0-16.0)
== END 2023-09-02 10:46 | disposition home or self-care (01) ==
LOC: HO.LABR 10:45
PROVIDERS: PCP Internal Medicine; Visit Provider Psychiatry & Neurology Psychiatry
DX: F25.0 Schizoaffective disorder, bipolar type (principal)
CPT/HCPCS: 36415; 85025

== ENCOUNTER 2023-09-09 06:01 | Day surgery (SDC) | payer MEDICARE, MEDICAID, SELFPAY ==
[2023-09-09 06:22] VITALS: BP 146/77; PULSE 9; RESP 19; TEMP 36.9; O2SAT 97; BMI 30.1
--- NOTE | 2023-09-09 06:40 | P.CONAN_ITS ---
[facility] Active Problems Active Problems: All Active Problems (Updated 06/30/23 @ 14:17 by Liam Valentine MD) Preoperative clearance (Acute) Left foot pain (Acute) Tinea pedis (Acute) Left foot pain (Acute) Shortness of breath (Acute) Hyperkalemia (Acute) Diarrhea (Acute) Palpitation (Acute) Eczema (Acute) Postmenopausal bleeding (Acute) Amenorrhea (Acute) Well woman exam (Acute) Menopause (Acute) Complex ovarian cyst (Acute) Elevated blood pressure reading without diagnosis of hypertension (Acute) Hypercholesterolemia (Acute) Hypothyroid (Acute) Schizoaffective disorder, bipolar type (Acute) Past Medical History Medical History Hypercholesterolemia Hypothyroid Liver laceration Hip fracture requiring operative repair Liver problem Schizoaffective disorder, bipolar type Depression Elevated cholesterol Family History Family History Mother No problems noted. Father No problems noted. Family history of problems with anesthesia: No Surgical History Surgical History History of surgery on lower extremity History of hip replacement History of tracheostomy History of hip surgery Status post aortic coarctation stent placement H/O rhinoplasty History of Problems with Anesthesia: No Social History Social History Housing: House Are you a primary vp care management to a significant other at home: No Do you presently have visiting nurse or other home services: No Alcohol intake: never Patient Tobacco Use Status: Former Tobacco user Tobacco use type: Cigarette e-Cigarette/Vaping Use: Never Used Second Hand Smoke Exposure: No Advance Directives: No Advance Directives Information Provided: Yes service: No Current occupational status: disabled Cognitive needs: No Hearing needs: No Vision needs: Yes (Glasses) Meds Allergies Allergy/AdvReac Type Severity Reaction Status Date / Time Sulfa (Sulfonamide Allergy Mild UNKNOWN Verified 07/30/23 09:19 Antibiotics) Home Medications Medication Instructions Recorded Confirmed Last Taken Type cholecalciferol (vitamin D3) 25 25 mcg PO DAILY 06/23/23 07/30/23 Unknown History mcg (1,000 unit) capsule Exam Exam Date and Time: September 09, 2023 0640 Height,Weight and Vital Signs: Height 5 ft 3 in Weight 77.111 kg Last Vital Signs Temp 98.5 F 09/09/23 06:22 Pulse 9 L 09/09/23 06:22 Resp 19 09/09/23 06:22 BP 146/77 H 09/09/23 06:22 Pulse Ox 97 09/09/23 06:22 O2 Del Method Room Air 09/09/23 06:22 Airway Mallampati Class: II TM Dist: >3cm Neck ROM: Full Heart: rrr Lungs: cta Assessment and Plan Assessment Anesthesia Assessment: Anesthesia Plan Discussed and Chart Reviewed Final Anesthetic Review Family History of Problems with Anesthesia: No History of Problems with Anesthesia: No NPO: Yes ASA Class: III Final Preanesthetic Review: No Changes in Pt Med Stat, Meds/Allgs Chart Reviewed and Consent Obtained/Reviewed Patient Risk: Intermediate Procedure Risk: Intermediate Anesthetic Plan Anesthetic Plan: GA Disposition: Standard PACU
--- NOTE | 2023-09-09 07:24 | MHC.SHP ---
Pre-Procedural Eval Section A Date of Service: 09/09/23 The patient is an INPATIENT: No Changes since office visit: Yes Patient answered all questions; No Cold of Flu in the past 2 weeks, No New Medical Problems and No Changes in Medication The History & Physical has been completed within 30 days and I have reviewed it.: No Section B Chief Complaint: depression Details of Present Illness: recurrent depression PI Relevant Social History: None Present Medications: see Short Stay Collaborative assessment Medical History: Significant History History of Previous Operations: Relevant previous surgery/procedure and date(s) (ect) Allergies: Allergies Allergy/AdvReac Type Severity Reaction Status Date / Time Sulfa (Sulfonamide Allergy Mild UNKNOWN Verified 07/30/23 09:19 Antibiotics) Review of Systems Sugical H&P ROS: Negative: Cardiovascular and Respiratory and Yes, Specify: Psychiatric (PI depression deniesactive si) and Musculoskeletal (l foot surgery) Exam Surgical H&P Exam: Normal: Heart (rr no murmur) and Normal: Lungs (clear) Plan Diagnosis/Plan: Unchanged I have reviewed the history and physical and performed a pertinent physical examination on my patient. No changes have occurred unless specified. Time Spent With Patient Time: Total time managing care of this patient today ____ minutes.
--- NOTE | 2023-09-09 07:25 | HO.ECTPROC ---
ECT Procedure Note Diagnosis/Treatment Date of Service: 09/09/23 Diagnosis: Schizoaffective Disorder Treatment: Maintenance Interval Clinical Notes: Patient has been doing okay chronic complaints of paranoia Time: Total time managing care of this patient today ____ minutes. ECT Settings Device: THYMATRON DGx Electrode Placement: Bitemporal Program/Pulse Width: 0.25 Energy Percent: 100 Seizure Duration By EEG (in seconds): 61 Medications Administration General Anesthetic: Etomidate Muscle Relaxant: Succinylcholine Ancillary Medications Anti-emetics: Zofran - Pre ECT Treatment Recommendations No Changes Recommended: No change Notes: f/u 3-4 weeks
[2023-09-09 07:41] VITALS: BP 146/68; PULSE 50; RESP 16; TEMP 37.3; O2SAT 97
[2023-09-09 07:46] VITALS: BP 116/71; PULSE 82; RESP 14; O2SAT 97
[2023-09-09 07:51] VITALS: BP 119/65; PULSE 73; RESP 17; O2SAT 100
[2023-09-09 07:56] VITALS: BP 129/69; PULSE 68; RESP 16; O2SAT 100
[2023-09-09 08:11] VITALS: BP 100/74; PULSE 74; RESP 12; TEMP 37.1; O2SAT 100
== END 2023-09-09 08:36 | disposition home or self-care (01) ==
PROVIDERS: PCP Internal Medicine; Visit Provider Psychiatry & Neurology Psychiatry
PROC: (CPT 90870; principal; 2023-09-09 07:30)
DX: F25.0 Schizoaffective disorder, bipolar type (principal); F22 Delusional disorders; E78.00 Pure hypercholesterolemia, unspecified; E03.9 Hypothyroidism, unspecified; Z88.2 Allergy status to sulfonamides; Z79.899 Other long term (current) drug therapy; Z87.891 Personal history of nicotine dependence
CPT/HCPCS: 90870; J0330; J1885; J2405

== ENCOUNTER → 2023-09-09 06:01 | Outpatient (BNV) | payer MEDICARE, MEDICAID, SELFPAY | PROVIDERS: PCP Internal Medicine; Visit Provider Psychiatry & Neurology Psychiatry | DX: F33.3 Major depressive disorder, recurrent, severe with psychotic symptoms (principal) | CPT/HCPCS: 90870 ==

== ENCOUNTER 2023-09-11 10:25 | Outpatient (REF) | payer MEDICARE, MEDICAID, SELFPAY ==
[2023-09-11 10:38] LABS: MANUAL DIFF FLAG NO
[2023-09-11 11:15] LABS: Basophils Absolute Auto 0.1 X10*3/uL (0.0-0.2); Basophils Percent Auto 0.6 % (0-2); Eosinophils Absolute Auto 0.2 X10*3/uL (0.0-0.4); Eosinophils Percent Auto 2.2 % (0-4); Hematocrit 37.8 % (37.0-47.0); Hemoglobin 12.1 g/dl (12.0-16.0); Imm Gran Abs Auto 0.02 X10*3/uL (0.00-0.03); Imm Gran Pct Auto 0.2 % (0.0-0.4); Lymphocytes Absolute Auto 1.4 X10*3/uL (1.2-4.9); Lymphocytes Percent Auto 13.2 % (20-40); Mean Corpuscular Hemoglobin 30.6 pg (27.0-33.0); Mean Corpuscular Volume 95.5 fL (80.0-98.0); Mean Platelet Volume 9.7 fL (9.4-12.3); Monocytes Percent Auto 8.8 % (2-11); Neutrophils Absolute Auto 8.2 x10*3/uL (2.0-8.3); Platelet Count 258 X10*3/uL (160-400); Red Blood Count 3.96 X10*6/uL (4.20-5.50); Red Cell Distribution Width 14.4 % (11.0-16.0); White Blood Count 10.9 X10*3/uL (4.8-10.8)
== END 2023-09-11 10:26 | disposition home or self-care (01) ==
LOC: HO.LAB 10:25
PROVIDERS: PCP Internal Medicine; Visit Provider Psychiatry & Neurology Psychiatry
DX: F25.0 Schizoaffective disorder, bipolar type (principal)
CPT/HCPCS: 36415; 85025

== ENCOUNTER 2023-09-19 08:52 | Outpatient (REF) | payer MEDICARE, MEDICAID, SELFPAY ==
[2023-09-19 09:03] LABS: MANUAL DIFF FLAG NO
[2023-09-19 10:07] LABS: Basophils Absolute Auto 0.1 X10*3/uL (0.0-0.2); Basophils Percent Auto 0.7 % (0-2); Eosinophils Absolute Auto 0.1 X10*3/uL (0.0-0.4); Hematocrit 37.7 % (37.0-47.0); Hemoglobin 12.1 g/dl (12.0-16.0); Imm Gran Abs Auto 0.02 X10*3/uL (0.00-0.03); Imm Gran Pct Auto 0.3 % (0.0-0.4); Lymphocytes Absolute Auto 1.2 X10*3/uL (1.2-4.9); Lymphocytes Percent Auto 16.9 % (20-40); Mean Corpuscular HGB Conc 32.1 g/dl (31.0-35.0); Mean Corpuscular Hemoglobin 30.6 pg (27.0-33.0); Mean Corpuscular Volume 95.4 fL (80.0-98.0); Mean Platelet Volume 9.9 fL (9.4-12.3); Monocytes Absolute Auto 0.5 X10*3/uL (0.1-1.2); Monocytes Percent Auto 7.7 % (2-11); Neutrophils Absolute Auto 5.1 x10*3/uL (2.0-8.3); Neutrophils Percent Auto 72.4 % (45-73); Platelet Count 261 X10*3/uL (160-400); Red Blood Count 3.95 X10*6/uL (4.20-5.50); Red Cell Distribution Width 14.4 % (11.0-16.0); White Blood Count 7.1 X10*3/uL (4.8-10.8)
== END 2023-09-19 08:53 | disposition home or self-care (01) ==
LOC: HO.LAB 08:52
PROVIDERS: Visit Provider Psychiatry & Neurology Psychiatry
DX: F25.0 Schizoaffective disorder, bipolar type (principal)
CPT/HCPCS: 36415; 85025

== ENCOUNTER 2023-09-22 13:59 | Outpatient (AMB) | payer MEDICARE, MEDICAID, SELFPAY ==
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
== END 2023-09-22 15:42 | disposition home or self-care (01) ==
LOC: HO.HOP 13:59
PROVIDERS: PCP Internal Medicine; Visit Provider Psychiatry & Neurology Psychiatry
DX: F25.0 Schizoaffective disorder, bipolar type (principal)
CPT/HCPCS: 90833; 99213

== ENCOUNTER → 2023-09-22 13:59 | Outpatient (BNVA) | payer MEDICARE, MEDICAID, SELFPAY | PROVIDERS: PCP Internal Medicine; Visit Provider Psychiatry & Neurology Psychiatry | DX: F25.0 Schizoaffective disorder, bipolar type (principal) | CPT/HCPCS: 90833; 99212 ==

== ENCOUNTER 2023-09-26 10:41 | Outpatient (REF) | payer MEDICARE, MEDICAID, SELFPAY ==
[2023-09-26 10:56] LABS: MANUAL DIFF FLAG NO
[2023-09-26 11:15] LABS: Basophils Absolute Auto 0.1 X10*3/uL (0.0-0.2); Basophils Percent Auto 0.9 % (0-2); Eosinophils Absolute Auto 0.2 X10*3/uL (0.0-0.4); Eosinophils Percent Auto 2.6 % (0-4); Hematocrit 37.2 % (37.0-47.0); Hemoglobin 11.9 g/dl (12.0-16.0); Imm Gran Abs Auto 0.03 X10*3/uL (0.00-0.03); Imm Gran Pct Auto 0.4 % (0.0-0.4); Lymphocytes Absolute Auto 1.4 X10*3/uL (1.2-4.9); Lymphocytes Percent Auto 17.3 % (20-40); Mean Corpuscular Hemoglobin 30.3 pg (27.0-33.0); Mean Corpuscular Volume 94.7 fL (80.0-98.0); Mean Platelet Volume 9.7 fL (9.4-12.3); Monocytes Absolute Auto 0.6 X10*3/uL (0.1-1.2); Monocytes Percent Auto 7.4 % (2-11); Neutrophils Absolute Auto 5.6 x10*3/uL (2.0-8.3); Neutrophils Percent Auto 71.4 % (45-73); Platelet Count 244 X10*3/uL (160-400); Red Blood Count 3.93 X10*6/uL (4.20-5.50); Red Cell Distribution Width 13.9 % (11.0-16.0); White Blood Count 7.8 X10*3/uL (4.8-10.8)
[2023-09-26 12:08] LABS: Lithium 0.88 mmol/L (0.60-1.20)
[2023-09-30 13:53] LABS: Clozapine (Clozaril) 303 mcg/L; Norclozapine 151 mcg/L (25-400)
== END 2023-09-26 10:42 | disposition home or self-care (01) ==
LOC: HO.LAB 10:41
PROVIDERS: PCP Internal Medicine; Visit Provider Psychiatry & Neurology Psychiatry
DX: F25.0 Schizoaffective disorder, bipolar type (principal)
CPT/HCPCS: 36415; 80159; 80178; 85025

== ENCOUNTER 2023-10-02 10:41 | Outpatient (REF) | payer MEDICARE, MEDICAID, SELFPAY ==
[2023-10-02 10:58] LABS: MANUAL DIFF FLAG NO
[2023-10-02 12:05] LABS: Basophils Percent Auto 0.6 % (0-2); Eosinophils Absolute Auto 0.1 X10*3/uL (0.0-0.4); Eosinophils Percent Auto 0.9 % (0-4); Hematocrit 40.5 % (37.0-47.0); Hemoglobin 13.3 g/dl (12.0-16.0); Imm Gran Abs Auto 0.02 X10*3/uL (0.00-0.03); Imm Gran Pct Auto 0.3 % (0.0-0.4); Lymphocytes Absolute Auto 1.1 X10*3/uL (1.2-4.9); Mean Corpuscular HGB Conc 32.8 g/dl (31.0-35.0); Mean Corpuscular Hemoglobin 30.8 pg (27.0-33.0); Mean Corpuscular Volume 93.8 fL (80.0-98.0); Mean Platelet Volume 9.9 fL (9.4-12.3); Monocytes Absolute Auto 0.4 X10*3/uL (0.1-1.2); Monocytes Percent Auto 5.8 % (2-11); Neutrophils Absolute Auto 5.4 x10*3/uL (2.0-8.3); Neutrophils Percent Auto 76.4 % (45-73); Platelet Count 236 X10*3/uL (160-400); Red Blood Count 4.32 X10*6/uL (4.20-5.50); Red Cell Distribution Width 13.2 % (11.0-16.0); White Blood Count 7.1 X10*3/uL (4.8-10.8)
== END 2023-10-02 10:42 | disposition home or self-care (01) ==
LOC: HO.LABR 10:41
PROVIDERS: PCP Internal Medicine; Visit Provider Psychiatry & Neurology Psychiatry
DX: F25.0 Schizoaffective disorder, bipolar type (principal)
CPT/HCPCS: 36415; 85025

== ENCOUNTER 2023-10-06 13:12 | Outpatient (AMB) | payer MEDICARE, MEDICAID, SELFPAY ==
--- NOTE | 2023-10-06 13:21 | MHC.PC.OV ---
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 Required: No Accompanied by: Self / Same As Patient Allergies Sulfa (Sulfonamide Antibiotics) Allergy (Mild, Verified 10/06/23 14:02) UNKNOWN Medication List - Last Reconciled 10/06/23 by Anoop Tavares PA-C atorvastatin 20 mg PO DAILY cariprazine (Vraylar) 6 mg PO DAILY 30 days cholecalciferol (vitamin D3) 25 mcg PO DAILY clozapine 100 mg PO BEDTIME donepezil 10 mg PO DAILY fluvoxamine 50 mg PO BID levothyroxine 112 mcg PO DAILY lithium carbonate ER 300 mg PO DAILY lithium carbonate ER 900 mg (2 x 450 mg) PO BEDTIME lorazepam 0.5 - 1 mg (0.5 - 1 x 1 mg) PO TID olanzapine 10 mg PO BID 30 days Tobacco use date assessed: 01/12/23 Dental Screening Dental Screen Date: 10/06/23 Did you have a dental visit in the last 12 months?: Yes Did you have a dental problem in the last 6 months where you did not have access to dental care?: No Was dental information given to patient?: Patient has dentist HPI Diarreah x 1 week HPI Details Patient is a 48-year-old female here today for problem visit. She reports she has been experiencing diarrhea over the last week. She denies any blood though does report having darkening of the color of diarrhea after taking Pepto-Bismol. She denies any abdominal pain or fevers. She denies any vomiting. She denies any sick contacts was still she does report drinking a lot of water on a regular basis. [facility] Medical History Hypercholesterolemia Hypothyroid Liver laceration Hip fracture requiring operative repair Liver problem Schizoaffective disorder, bipolar type Depression Elevated cholesterol Surgical History History of surgery on lower extremity History of hip replacement History of tracheostomy History of hip surgery Status post aortic coarctation stent placement H/O rhinoplasty Family History Mother No problems noted. Father No problems noted. Social History Housing: House Are you a primary career consultant to a significant other at home: No Do you presently have visiting nurse or other home services: No Alcohol intake: never Patient Tobacco Use Status: Former Tobacco user Tobacco use type: Cigarette e-Cigarette/Vaping Use: Never Used Second Hand Smoke Exposure: No service: No Current occupational status: disabled Cognitive needs: No Hearing needs: No Vision needs: Yes (Glasses) Female Reproductive History Menstrual Age of Menarche: 10 Questionnaire Thrive Questionnaire Date Thrive assessed: 12/04/22 JYOTSNA-7 AMB Questionnaire JYOTSNA-7 Date JYOTSNA - 7 assessed: 12/04/22 Source: Developed by Drs. Adam Donohue, Gracie Toure, Rishi Abdi and colleagues, with an educational pranay from [employer]. Review of Systems Const Denies headache(s) Eyes Denies loss of vision ENT Denies vertigo, Denies dizziness, Denies headache(s) and Denies sore throat Card Denies chest pain, Denies leg edema and Denies lightheadedness Resp Denies cough, Denies hemoptysis and Denies wheezing GI Denies abdominal pain, Denies melena, Denies constipation, Reports diarrhea and Denies vomiting Denies urinary frequency, Denies dysuria and Denies urinary urgency Musc Denies arthralgias, Denies joint swelling, Denies numbness and Denies tingling Neuro Denies Abnormal speech present, Denies behavioral changes, Denies vertigo, Denies dizziness, Denies headache(s), Denies loss of vision, Denies memory loss, Denies numbness and Denies tingling Psych Denies anxiety, Denies behavioral changes, Denies depression, Denies memory loss and Denies panic attacks Raul/Lymph Denies easy bleeding and Denies easy bruising Aller/Immun Denies wheezing Physical exam (Primary Care) Vital Signs: Last Vital Signs Pulse 87 10/06/23 13:25 Pulse Ox 99 10/06/23 13:25 Oxygen Delivery Method Room Air 10/06/23 13:25 BMI result Body Mass Index 31.4 Tobacco/Smoking Status: Tobacco use Status Tobacco use date assessed 01/12/23 10/06/23 13:31 Patient Tobacco Use Status Former Tobacco user 10/06/23 13:31 Tobacco use type Cigarette 10/06/23 13:31 e-Cigarette/Vaping Use Never Used 10/06/23 13:31 Thrive Assessment: Date of Thrive Assessment Date Thrive assessed 12/04/22 10/06/23 13:31 Const General: healthy appearing, no acute distress, alert and awake Nutritional Appearance: well nourished Orientation/consciousness: oriented to person, oriented to place and oriented to time HENMT Ears: TM's normal bilaterally General nose exam: Normal nasal mucous membranes and turbinates present Eyes Conjunctivae: conjunctivae normal Sclerae: sclerae normal Pupils: Equal, round and reactive pupils present Neck Neck: Yes no lymphadenopathy and Yes no JVD Thyroid: Thyroid normal Carotids: no bruits Resp Effort & Inspection: normal respiratory effort and not tachypneic Auscultation: no crackles, no rales, no rhonchi and no wheezes Cardio Rate: regular rate Rhythm: regular rhythm Heart sounds: no murmurs and normal S1 and S2 GI Palpation (GI): Soft to palpation, nontender, no hepatomegaly and no splenomegaly Auscultation: normal bowel sounds Skin General skin exam: no rashes or lesions noted and dry skin Neuro General: oriented to person, oriented to place and oriented to time Cranial nerves: Yes Equal, round and reactive pupils present Speech: No Abnormal speech present Gait exam (Neuro): Normal gait present Motor exam (neuro): no tremor noted Extrem Right upper extremity: full ROM Left upper extremity: full ROM Right lower extremity: full ROM; no edema Left lower extremity: full ROM; no edema Psych Mental Status: mental status grossly normal Speech and movement: Normal speech and movement present Affect: normal affect Attitude: cooperative Thought process: Normal thought process present Assessment and Plan Assessment & Plan (1) Diarrhea: Code(s): R19.7 - Diarrhea, unspecified Qualifiers: Diarrhea type: unspecified type Qualified Code(s): R19.7 - Diarrhea, unspecified Plan: Patient has had diarrhea for 1 week. ? Viral Gastroenteritis. No fevers or abdominal pain reported. She denies any blood in diarrhea. She does report dark color to the diarrhea though has been taking Pepto-Bismol. Check nonfasting labs and stool studies. Advised on use of loperamide. Orders: Orders Giardia Ag Stool EIA Today R19.7 - Diarrhea, unspecified Leukocytes Stool Qualitative Today R19.7 - Diarrhea, unspecified CDiff Gene PCR Today R19.7 - Diarrhea, unspecified Liver Panel Today R19.7 - Diarrhea, unspecified Complete Blood Count no Diff Today R19.7 - Diarrhea, unspecified Basic Metabolic Panel Today R19.7 - Diarrhea, unspecified Medications: New loperamide 2 mg PO Q8H 7 days PRN 21 caps 0RF loose stool R19.7 - Diarrhea, unspecified Coding Level of Care Code Est Pt Level 3 (51278) Diagnoses Diarrhea, unspecified type R19.7 Diarrhea type: unspecified type
[2023-10-06 13:25] VITALS: PULSE 87; O2SAT 99; BMI 31.4
== END 2023-10-06 16:09 | disposition home or self-care (01) ==
PROVIDERS: PCP Internal Medicine; Visit Provider Physician Assistant
DX: R19.7 Diarrhea, unspecified (principal)
CPT/HCPCS: 99213

== ENCOUNTER 2023-10-10 09:28 | Outpatient (REF) | payer MEDICARE, MEDICAID, SELFPAY ==
[2023-10-10 09:42] LABS: MANUAL DIFF FLAG NO
[2023-10-10 10:08] LABS: Basophils Percent Auto 0.6 % (0-2); Eosinophils Absolute Auto 0.1 X10*3/uL (0.0-0.4); Eosinophils Percent Auto 1.1 % (0-4); Hematocrit 39.7 % (37.0-47.0); Hemoglobin 12.7 g/dl (12.0-16.0); Imm Gran Abs Auto 0.01 X10*3/uL (0.00-0.03); Imm Gran Pct Auto 0.1 % (0.0-0.4); Lymphocytes Absolute Auto 1.2 X10*3/uL (1.2-4.9); Lymphocytes Percent Auto 17.6 % (20-40); Mean Corpuscular Hemoglobin 30.5 pg (27.0-33.0); Mean Corpuscular Volume 95.4 fL (80.0-98.0); Mean Platelet Volume 10.2 fL (9.4-12.3); Monocytes Absolute Auto 0.5 X10*3/uL (0.1-1.2); Monocytes Percent Auto 7.5 % (2-11); Neutrophils Absolute Auto 5.2 x10*3/uL (2.0-8.3); Neutrophils Percent Auto 73.1 % (45-73); Platelet Count 204 X10*3/uL (160-400); Red Blood Count 4.16 X10*6/uL (4.20-5.50); Red Cell Distribution Width 13.2 % (11.0-16.0); White Blood Count 7.1 X10*3/uL (4.8-10.8)
[2023-10-10 10:26] LABS: Alanine Aminotransferase 12 U/L (0-31); Albumin Level 4.6 g/dL (3.5-5.0); Alkaline Phosphatase 68 U/L (39-117); Anion Gap 12 (12-20); Aspartate Amino Transferase 15 U/L (5-31); Bilirubin Direct 0.1 mg/dL (0.0-0.5); Bilirubin Total 0.4 mg/dL (0.0-1.0); Blood Urea Nitrogen 11 mg/dL (9-16); Calcium 10.2 mg/dL (8.4-10.2); Carbon Dioxide 25 mmol/L (22-29); Chloride 106 mmol/L (96-108); Estimated Glomerular Filt Rate 57; Glucose Random 119 mg/dL (60-115); Sodium 138 mmol/L (135-145); Total Protein 7.3 g/dL (6.5-8.0)
== END 2023-10-10 09:29 | disposition home or self-care (01) ==
LOC: HO.LAB 09:28
PROVIDERS: Absent Provider Psychiatry & Neurology Psychiatry; PCP Physician Assistant; Visit Provider Physician Assistant
DX: R19.7 Diarrhea, unspecified (principal); F25.0 Schizoaffective disorder, bipolar type
CPT/HCPCS: 36415; 80048; 80076; 85025; 85027

== ENCOUNTER 2023-10-13 08:14 | Outpatient (REF) | payer MEDICARE, MEDICAID, SELFPAY ==
[2023-10-13 09:24] LABS: Leukocytes Stool Qualitative NEGATIVE (NEGATIVE)
== END 2023-10-13 08:15 | disposition home or self-care (01) ==
LOC: HO.LNP 08:14
PROVIDERS: Visit Provider Physician Assistant
DX: R19.7 Diarrhea, unspecified (principal)
CPT/HCPCS: 87329; 87493; 89055

== ENCOUNTER 2023-10-14 06:08 | Day surgery (SDC) | payer MEDICARE, MEDICAID, SELFPAY ==
--- NOTE | 2023-10-14 06:48 | HO.ANESPROP2 ---
[facility] Active Problems Active Problems: All Active Problems (Updated 10/06/23 @ 14:09 by Anoop Tavares PA-C) Preoperative clearance (Acute) Left foot pain (Acute) Tinea pedis (Acute) Left foot pain (Acute) Shortness of breath (Acute) Hyperkalemia (Acute) Diarrhea (Acute) Palpitation (Acute) Eczema (Acute) Postmenopausal bleeding (Acute) Amenorrhea (Acute) Well woman exam (Acute) Menopause (Acute) Complex ovarian cyst (Acute) Elevated blood pressure reading without diagnosis of hypertension (Acute) Hypercholesterolemia (Acute) Hypothyroid (Acute) Schizoaffective disorder, bipolar type (Acute) Past Medical History Medical History Hypercholesterolemia Hypothyroid Liver laceration Hip fracture requiring operative repair Liver problem Schizoaffective disorder, bipolar type Depression Elevated cholesterol Family History Family History Mother No problems noted. Father No problems noted. Family history of problems with anesthesia: No Surgical History Surgical History History of surgery on lower extremity History of hip replacement History of tracheostomy History of hip surgery Status post aortic coarctation stent placement H/O rhinoplasty History of Problems with Anesthesia: No Social History Housing: House Are you a primary janitor caretaker to a significant other at home: No Do you presently have visiting nurse or other home services: No Alcohol intake: never Patient Tobacco Use Status: Former Tobacco user Tobacco use type: Cigarette e-Cigarette/Vaping Use: Never Used Second Hand Smoke Exposure: No Advance Directives: No Advance Directives Information Provided: Yes service: No Current occupational status: disabled Cognitive needs: No Hearing needs: No Vision needs: Yes (Glasses) Meds Allergies Allergy/AdvReac Type Severity Reaction Status Date / Time Sulfa (Sulfonamide Allergy Mild UNKNOWN Verified 10/06/23 14:02 Antibiotics) Home Medications Medication Instructions Recorded Confirmed Last Taken Type cholecalciferol (vitamin D3) 25 25 mcg PO DAILY 06/23/23 10/06/23 Unknown History mcg (1,000 unit) capsule Exam Airway Mallampati Class: II TM Dist: >3cm Neck ROM: Full Heart: rrr Lungs: cta Assessment and Plan Assessment Anesthesia Assessment: Anesthesia Plan Discussed and Chart Reviewed Final Anesthetic Review Family History of Problems with Anesthesia: No History of Problems with Anesthesia: No NPO: Yes ASA Class: III Final Preanesthetic Review: No Changes in Pt Med Stat, Meds/Allgs Chart Reviewed and Consent Obtained/Reviewed Patient Risk: Intermediate Procedure Risk: Intermediate Anesthetic Plan Anesthetic Plan: GA Disposition: Standard PACU
[2023-10-14 06:49] VITALS: BP 163/80; PULSE 90; RESP 12; TEMP 37.2; O2SAT 99; BMI 30.1
--- NOTE | 2023-10-14 07:01 | MHC.SHP ---
Pre-Procedural Eval Section A Date of Service: 10/14/23 The patient is an INPATIENT: No Changes since office visit: No Cold of Flu in the past 2 weeks, No New Medical Problems, No Changes in Medication and No Patient answered all questions The History & Physical has been completed within 30 days and I have reviewed it.: Yes Section B Chief Complaint: Major depressive disorder, recurrent, severe with Allergies: Allergies Allergy/AdvReac Type Severity Reaction Status Date / Time Sulfa (Sulfonamide Allergy Mild UNKNOWN Verified 10/06/23 14:02 Antibiotics) Plan I have reviewed the history and physical and performed a pertinent physical examination on my patient. No changes have occurred unless specified. Time Spent With Patient Time: Total time managing care of this patient today ____ minutes.
--- NOTE | 2023-10-14 07:20 | HO.ECTPROC ---
ECT Procedure Note Diagnosis/Treatment Date of Service: 10/14/23 Diagnosis: Schizoaffective Disorder Previous ECT Date: 09/09/23 Treatment: Maintenance Interval Clinical Notes: The patient denies new symptoms, she states that she is at baseline. Previous ECT without new side effects. Today, the procedure was done as usual, no new side effects, no changes. Time: Total time managing care of this patient today __30__ minutes. ECT Settings Device: THYMATRON DGx Electrode Placement: Bitemporal Program/Pulse Width: 0.25 Energy Percent: 100 Seizure Duration By EEG (in seconds): 52 By Motor Observation (in seconds): 31 Medications Administration General Anesthetic: Etomidate (16) Muscle Relaxant: Succinylcholine (100) Ancillary Medications Analgesics: Torodol - Pre ECT Anti-emetics: Zofran - Pre ECT Airway Management Airway Management: Bag Mask Ventilation Treatment Recommendations No Changes Recommended: No change Pt Tolerated Procedure w/o Issue: Yes
[2023-10-14 07:24] VITALS: BP 178/75; PULSE 85; RESP 18; TEMP 37.2; O2SAT 98
[2023-10-14 07:29] VITALS: BP 134/75; PULSE 64; RESP 13; O2SAT 100
[2023-10-14 07:34] VITALS: BP 132/76; PULSE 69; RESP 13; O2SAT 100
[2023-10-14 07:39] VITALS: BP 125/71; PULSE 75; RESP 13; O2SAT 100
[2023-10-14 07:54] VITALS: BP 132/77; PULSE 75; RESP 17; TEMP 37.3; O2SAT 97
== END 2023-10-14 08:18 | disposition home or self-care (01) ==
PROVIDERS: PCP Physician Assistant; Visit Provider Psychiatry & Neurology Psychiatry
PROC: (CPT 90870; principal; 2023-10-14 15:00)
DX: F25.0 Schizoaffective disorder, bipolar type (principal); E78.00 Pure hypercholesterolemia, unspecified; E03.9 Hypothyroidism, unspecified; Z79.899 Other long term (current) drug therapy; Z88.2 Allergy status to sulfonamides; Z98.890 Other specified postprocedural states; Z87.891 Personal history of nicotine dependence
CPT/HCPCS: 90870; J0330; J1885; J2405

== ENCOUNTER → 2023-10-14 06:08 | Outpatient (BNV) | payer MEDICARE, MEDICAID, SELFPAY | PROVIDERS: PCP Physician Assistant; Visit Provider Psychiatry & Neurology Psychiatry | DX: F33.3 Major depressive disorder, recurrent, severe with psychotic symptoms (principal) | CPT/HCPCS: 90870 ==

== ENCOUNTER 2023-10-17 09:24 | Outpatient (REF) | payer MEDICARE, MEDICAID, SELFPAY ==
[2023-10-17 09:38] LABS: MANUAL DIFF FLAG NO
[2023-10-17 10:08] LABS: Basophils Percent Auto 0.4 % (0-2); Eosinophils Absolute Auto 0.1 X10*3/uL (0.0-0.4); Hematocrit 39.7 % (37.0-47.0); Hemoglobin 12.9 g/dl (12.0-16.0); Imm Gran Abs Auto 0.02 X10*3/uL (0.00-0.03); Imm Gran Pct Auto 0.3 % (0.0-0.4); Lymphocytes Percent Auto 13.7 % (20-40); Mean Corpuscular HGB Conc 32.5 g/dl (31.0-35.0); Mean Corpuscular Hemoglobin 30.6 pg (27.0-33.0); Mean Corpuscular Volume 94.1 fL (80.0-98.0); Monocytes Absolute Auto 0.4 X10*3/uL (0.1-1.2); Monocytes Percent Auto 5.8 % (2-11); Neutrophils Absolute Auto 5.8 x10*3/uL (2.0-8.3); Neutrophils Percent Auto 78.8 % (45-73); Platelet Count 199 X10*3/uL (160-400); Red Blood Count 4.22 X10*6/uL (4.20-5.50); White Blood Count 7.3 X10*3/uL (4.8-10.8)
== END 2023-10-17 09:25 | disposition home or self-care (01) ==
LOC: HO.LABR 09:24
PROVIDERS: PCP Physician Assistant; Visit Provider Psychiatry & Neurology Psychiatry
DX: R19.7 Diarrhea, unspecified (principal); F25.0 Schizoaffective disorder, bipolar type
CPT/HCPCS: 36415; 85025; 85027

== ENCOUNTER 2023-10-19 08:14 | Outpatient (REF) | payer MEDICARE, MEDICAID, SELFPAY ==
[2023-10-19 09:47] LABS: CDiff Gene PCR NEGATIVE (Negative)
== END 2023-10-19 08:15 | disposition home or self-care (01) ==
LOC: HO.LNP 08:14
PROVIDERS: Visit Provider Physician Assistant
DX: R19.7 Diarrhea, unspecified (principal)
CPT/HCPCS: 87329; 87493

== ENCOUNTER 2023-10-21 06:03 | Day surgery (SDC) | payer MEDICARE, MEDICAID, SELFPAY ==
[2023-10-21] VITALS (8 sets, daily range): BP systolic 110–165; BP diastolic 60–85; PULSE 54–82; RESP 16–19; TEMP 36.2–37.4; O2SAT 93–100; BMI 30.3
--- NOTE | 2023-10-21 06:41 | P.CONAN_ITS ---
[facility] Active Problems Active Problems: All Active Problems (Updated 10/06/23 @ 14:09 by Anoop Tavares PA-C) Preoperative clearance (Acute) Left foot pain (Acute) Tinea pedis (Acute) Left foot pain (Acute) Shortness of breath (Acute) Hyperkalemia (Acute) Diarrhea (Acute) Palpitation (Acute) Eczema (Acute) Postmenopausal bleeding (Acute) Amenorrhea (Acute) Well woman exam (Acute) Menopause (Acute) Complex ovarian cyst (Acute) Elevated blood pressure reading without diagnosis of hypertension (Acute) Hypercholesterolemia (Acute) Hypothyroid (Acute) Schizoaffective disorder, bipolar type (Acute) Past Medical History Medical History Hypercholesterolemia Hypothyroid Liver laceration Hip fracture requiring operative repair Liver problem Schizoaffective disorder, bipolar type Depression Elevated cholesterol Family History Family History Mother No problems noted. Father No problems noted. Family history of problems with anesthesia: No Surgical History Surgical History History of surgery on lower extremity History of hip replacement History of tracheostomy History of hip surgery Status post aortic coarctation stent placement H/O rhinoplasty History of Problems with Anesthesia: No Social History Social History Housing: House Are you a primary daycare director to a significant other at home: No Do you presently have visiting nurse or other home services: No Alcohol intake: never Patient Tobacco Use Status: Former Tobacco user Tobacco use type: Cigarette e-Cigarette/Vaping Use: Never Used Second Hand Smoke Exposure: No Advance Directives: No Advance Directives Information Provided: Yes service: No Current occupational status: disabled Cognitive needs: No Hearing needs: No Vision needs: Yes (Glasses) Meds Allergies Allergy/AdvReac Type Severity Reaction Status Date / Time Sulfa (Sulfonamide Allergy Mild UNKNOWN Verified 10/06/23 14:02 Antibiotics) Active Medications: Current Medications Lactated Ringer's (Lr) 1,000 mls @ 50 mls/hr IVCONT .Q20H [facility] Home Medications Medication Instructions Recorded Confirmed Last Taken Type cholecalciferol (vitamin D3) 25 25 mcg PO DAILY 06/23/23 10/06/23 Unknown History mcg (1,000 unit) capsule Exam Height,Weight and Vital Signs: Height 5 ft 3 in Weight 77.564 kg Last Vital Signs Temp 98.3 F 10/21/23 06:25 Pulse 82 10/21/23 06:25 Resp 18 10/21/23 06:25 BP 152/85 H 10/21/23 06:25 Pulse Ox 97 10/21/23 06:25 O2 Del Method Room Air 10/21/23 06:25 Airway Mallampati Class: II TM Dist: >3cm Neck ROM: Full Heart: rrr Lungs: cta Assessment and Plan Assessment Anesthesia Assessment: Anesthesia Plan Discussed and Chart Reviewed Final Anesthetic Review Family History of Problems with Anesthesia: No History of Problems with Anesthesia: No NPO: Yes ASA Class: III Final Preanesthetic Review: No Changes in Pt Med Stat, Meds/Allgs Chart Reviewed and Consent Obtained/Reviewed Patient Risk: Intermediate Procedure Risk: Intermediate Anesthetic Plan Anesthetic Plan: GA Disposition: Standard PACU
--- NOTE | 2023-10-21 06:53 | MHC.SHP ---
Pre-Procedural Eval Section A Date of Service: 10/21/23 The patient is an INPATIENT: No Changes since office visit: No Cold of Flu in the past 2 weeks, No New Medical Problems, No Changes in Medication and No Patient answered all questions The History & Physical has been completed within 30 days and I have reviewed it.: Yes Section B Chief Complaint: depression Allergies: Allergies Allergy/AdvReac Type Severity Reaction Status Date / Time Sulfa (Sulfonamide Allergy Mild UNKNOWN Verified 10/06/23 14:02 Antibiotics) Plan I have reviewed the history and physical and performed a pertinent physical examination on my patient. No changes have occurred unless specified. Time Spent With Patient Time: Total time managing care of this patient today ____ minutes.
--- NOTE | 2023-10-21 06:53 | HO.ECTPROC ---
ECT Procedure Note Diagnosis/Treatment Date of Service: 10/21/23 Treatment: Maintenance Interval Clinical Notes: Patient depressed anxious complains of ongoing paranoia associates this with hopelessness helplessness thoughts that she would be better off no clear improvement after last treatment discussed adding a treatment in a few days will see outpatient in 2 days consider increase clozapine discussed option of inpatient treatment if needed Time: Total time managing care of this patient today ____ minutes. ECT Settings Device: THYMATRON DGx Electrode Placement: Bitemporal Program/Pulse Width: 0.50 Energy Percent: 100 Seizure Duration By EEG (in seconds): 50 Medications Administration General Anesthetic: Etomidate (16) Muscle Relaxant: Succinylcholine (100) Ancillary Medications Analgesics: Torodol - Pre ECT Anti-emetics: Zofran - Pre ECT Airway Management Airway Management: Bag Mask Ventilation Treatment Recommendations No Changes Recommended: No change Notes: Increase pulseless to 0.5 monitor response from today
== END 2023-10-21 08:37 | disposition home or self-care (01) ==
PROVIDERS: PCP Physician Assistant; Visit Provider Psychiatry & Neurology Psychiatry
PROC: (CPT 90870; principal; 2023-10-21 08:00)
DX: F33.3 Major depressive disorder, recurrent, severe with psychotic symptoms (principal); F41.8 Other specified anxiety disorders; E78.00 Pure hypercholesterolemia, unspecified; Z79.899 Other long term (current) drug therapy; Z87.891 Personal history of nicotine dependence
CPT/HCPCS: 90870; J0330; J1885; J2405

== ENCOUNTER → 2023-10-21 06:03 | Outpatient (BNV) | payer MEDICARE, MEDICAID, SELFPAY | PROVIDERS: PCP Physician Assistant; Visit Provider Psychiatry & Neurology Psychiatry | DX: F33.3 Major depressive disorder, recurrent, severe with psychotic symptoms (principal) | CPT/HCPCS: 90870 ==

== ENCOUNTER 2023-10-23 11:54 | Outpatient (REF) | payer MEDICARE, MEDICAID, SELFPAY ==
[2023-10-23 13:06] LABS: MANUAL DIFF FLAG NO
[2023-10-23 13:39] LABS: Basophils Absolute Auto 0.1 X10*3/uL (0.0-0.2); Basophils Percent Auto 0.7 % (0-2); Eosinophils Absolute Auto 0.2 X10*3/uL (0.0-0.4); Eosinophils Percent Auto 2.5 % (0-4); Hemoglobin 12.6 g/dl (12.0-16.0); Imm Gran Abs Auto 0.02 X10*3/uL (0.00-0.03); Imm Gran Pct Auto 0.2 % (0.0-0.4); Lymphocytes Absolute Auto 1.4 X10*3/uL (1.2-4.9); Mean Corpuscular HGB Conc 32.3 g/dl (31.0-35.0); Mean Corpuscular Hemoglobin 31.2 pg (27.0-33.0); Mean Corpuscular Volume 96.5 fL (80.0-98.0); Mean Platelet Volume 10.4 fL (9.4-12.3); Monocytes Absolute Auto 0.7 X10*3/uL (0.1-1.2); Monocytes Percent Auto 7.4 % (2-11); Neutrophils Absolute Auto 6.4 x10*3/uL (2.0-8.3); Neutrophils Percent Auto 73.2 % (45-73); Platelet Count 233 X10*3/uL (160-400); Red Blood Count 4.04 X10*6/uL (4.20-5.50); Red Cell Distribution Width 12.8 % (11.0-16.0); White Blood Count 8.7 X10*3/uL (4.8-10.8)
[2023-10-23 14:20] LABS: Lithium 1.01 mmol/L (0.60-1.20)
[2023-10-27 07:34] LABS: Clozapine (Clozaril) 202 mcg/L; Norclozapine 118 mcg/L (25-400)
== END 2023-10-23 11:55 | disposition home or self-care (01) ==
LOC: HO.LAB 11:54
PROVIDERS: PCP Physician Assistant; Visit Provider Psychiatry & Neurology Psychiatry
DX: F25.0 Schizoaffective disorder, bipolar type (principal); F31.77 Bipolar disorder, in partial remission, most recent episode mixed
CPT/HCPCS: 36415; 80159; 80178; 85025

== ENCOUNTER 2023-10-30 06:02 | Day surgery (SDC) | payer MEDICARE, MEDICAID, SELFPAY ==
[2023-10-30 06:32] VITALS: BP 145/67; PULSE 81; RESP 22; TEMP 36.9; O2SAT 97; BMI 31.0
--- NOTE | 2023-10-30 07:07 | HO.ANESPROP2 ---
[facility] Active Problems Active Problems: All Active Problems (Updated 10/06/23 @ 14:09 by Anoop Tavares PA-C) Preoperative clearance (Acute) Left foot pain (Acute) Tinea pedis (Acute) Left foot pain (Acute) Shortness of breath (Acute) Hyperkalemia (Acute) Diarrhea (Acute) Palpitation (Acute) Eczema (Acute) Postmenopausal bleeding (Acute) Amenorrhea (Acute) Well woman exam (Acute) Menopause (Acute) Complex ovarian cyst (Acute) Elevated blood pressure reading without diagnosis of hypertension (Acute) Hypercholesterolemia (Acute) Hypothyroid (Acute) Schizoaffective disorder, bipolar type (Acute) Past Medical History Medical History Hypercholesterolemia Hypothyroid Liver laceration Hip fracture requiring operative repair Liver problem Schizoaffective disorder, bipolar type Depression Elevated cholesterol Family History Family History Mother No problems noted. Father No problems noted. Family history of problems with anesthesia: No Surgical History Surgical History History of surgery on lower extremity History of hip replacement History of tracheostomy History of hip surgery Status post aortic coarctation stent placement H/O rhinoplasty History of Problems with Anesthesia: No Social History Social History Housing: House Are you a primary nurse wound care to a significant other at home: No Do you presently have visiting nurse or other home services: No Alcohol intake: never Patient Tobacco Use Status: Former Tobacco user Tobacco use type: Cigarette e-Cigarette/Vaping Use: Never Used Second Hand Smoke Exposure: No Advance Directives: No Advance Directives Information Provided: Yes service: No Current occupational status: disabled Cognitive needs: No Hearing needs: No Vision needs: Yes (Glasses) Meds Allergies Allergy/AdvReac Type Severity Reaction Status Date / Time Sulfa (Sulfonamide Allergy Mild UNKNOWN Verified 10/06/23 14:02 Antibiotics) Home Medications Medication Instructions Recorded Confirmed Last Taken Type cholecalciferol (vitamin D3) 25 25 mcg PO DAILY 06/23/23 10/06/23 Unknown History mcg (1,000 unit) capsule Exam Height,Weight and Vital Signs: Height 5 ft 3 in Weight 79.379 kg Last Vital Signs Temp 98.4 F 10/30/23 06:32 Pulse 81 10/30/23 06:32 Resp 22 H 10/30/23 06:32 BP 145/67 H 10/30/23 06:32 Pulse Ox 97 10/30/23 06:32 O2 Del Method Room Air 10/30/23 06:32 Airway Mallampati Class: II TM Dist: >3cm Neck ROM: Full Heart: rrr Lungs: cta Assessment and Plan Assessment Anesthesia Assessment: Anesthesia Plan Discussed and Chart Reviewed Final Anesthetic Review Family History of Problems with Anesthesia: No History of Problems with Anesthesia: No NPO: Yes ASA Class: III Final Preanesthetic Review: No Changes in Pt Med Stat, Meds/Allgs Chart Reviewed and Consent Obtained/Reviewed Patient Risk: Intermediate Procedure Risk: Intermediate Anesthetic Plan Anesthetic Plan: GA Disposition: Standard PACU
--- NOTE | 2023-10-30 07:23 | MHC.SHP ---
Pre-Procedural Eval Section A Date of Service: 10/30/23 The patient is an INPATIENT: No Changes since office visit: No Cold of Flu in the past 2 weeks, No New Medical Problems, No Changes in Medication and No Patient answered all questions The History & Physical has been completed within 30 days and I have reviewed it.: Yes Section B Chief Complaint: depression with paranoia Allergies: Allergies Allergy/AdvReac Type Severity Reaction Status Date / Time Sulfa (Sulfonamide Allergy Mild UNKNOWN Verified 10/06/23 14:02 Antibiotics) Plan I have reviewed the history and physical and performed a pertinent physical examination on my patient. No changes have occurred unless specified. Time Spent With Patient Time: Total time managing care of this patient today ____ minutes.
--- NOTE | 2023-10-30 07:24 | HO.ECTPROC ---
ECT Procedure Note Diagnosis/Treatment Date of Service: 10/30/23 Diagnosis: Schizoaffective Disorder Treatment: Maintenance Interval Clinical Notes: Patient depressed anxious complains of ongoing paranoia associates this with hopelessness helplessness thoughts that she would be better off no clear improvement after last treatment discussed adding a treatment in a few days will see outpatient in 2 days consider increase clozapine discussed option of inpatient treatment if needed Time: Total time managing care of this patient today ____ minutes. ECT Settings Device: THYMATRON DGx Electrode Placement: Bitemporal Program/Pulse Width: 0.50 Energy Percent: 100 Seizure Duration By EEG (in seconds): 50 Medications Administration General Anesthetic: Etomidate (16) Muscle Relaxant: Succinylcholine (100) Ancillary Medications Analgesics: Torodol - Pre ECT Anti-emetics: Zofran - Pre ECT Airway Management Airway Management: Bag Mask Ventilation Treatment Recommendations No Changes Recommended: No change Notes: Increase pulsewidth to 0.5 monitor response from today balance tx with side effects Pt Tolerated Procedure w/o Issue: Yes
[2023-10-30 07:39] VITALS: BP 125/65; PULSE 68; RESP 13; TEMP 36.4; O2SAT 98
[2023-10-30 07:44] VITALS: BP 119/62; PULSE 67; RESP 12; O2SAT 99
[2023-10-30 07:49] VITALS: BP 127/65; PULSE 68; RESP 10; O2SAT 99
[2023-10-30 07:54] VITALS: BP 120/66; PULSE 73; RESP 10; O2SAT 100
[2023-10-30 08:09] VITALS: BP 121/69; PULSE 73; RESP 12; TEMP 36.4; O2SAT 97
== END 2023-10-30 08:41 | disposition home or self-care (01) ==
PROVIDERS: Psychiatry & Neurology Psychiatry; PCP Physician Assistant; Visit Provider Psychiatry & Neurology Psychiatry
PROC: (CPT 90870; principal; 2023-10-30 07:30)
DX: F33.3 Major depressive disorder, recurrent, severe with psychotic symptoms (principal); F41.8 Other specified anxiety disorders; E78.00 Pure hypercholesterolemia, unspecified; Z79.899 Other long term (current) drug therapy; Z87.891 Personal history of nicotine dependence
CPT/HCPCS: 90870; J0330; J1885; J2405

== ENCOUNTER → 2023-10-30 06:02 | Outpatient (BNV) | payer MEDICARE, MEDICAID, SELFPAY | PROVIDERS: PCP Physician Assistant; Visit Provider Psychiatry & Neurology Psychiatry | DX: F33.3 Major depressive disorder, recurrent, severe with psychotic symptoms (principal) | CPT/HCPCS: 90870 ==

== ENCOUNTER 2023-11-13 06:02 | Day surgery (SDC) | payer MEDICARE, MEDICAID, SELFPAY ==
[2023-11-13] VITALS (7 sets, daily range): BP systolic 113–147; BP diastolic 61–83; PULSE 71–89; RESP 16–17; TEMP 36.6–37.6; O2SAT 91–98; BMI 30.8
--- NOTE | 2023-11-13 06:54 | P.CONAN_ITS ---
[facility] Active Problems Active Problems: All Active Problems (Updated 10/06/23 @ 14:09 by Anoop Tavares PA-C) Preoperative clearance (Acute) Left foot pain (Acute) Tinea pedis (Acute) Left foot pain (Acute) Shortness of breath (Acute) Hyperkalemia (Acute) Diarrhea (Acute) Palpitation (Acute) Eczema (Acute) Postmenopausal bleeding (Acute) Amenorrhea (Acute) Well woman exam (Acute) Menopause (Acute) Complex ovarian cyst (Acute) Elevated blood pressure reading without diagnosis of hypertension (Acute) Hypercholesterolemia (Acute) Hypothyroid (Acute) Schizoaffective disorder, bipolar type (Acute) Past Medical History Medical History Hypercholesterolemia Hypothyroid Liver laceration Hip fracture requiring operative repair Liver problem Schizoaffective disorder, bipolar type Depression Elevated cholesterol Family History Family History Mother No problems noted. Father No problems noted. Family history of problems with anesthesia: No Surgical History Surgical History History of surgery on lower extremity History of hip replacement History of tracheostomy History of hip surgery Status post aortic coarctation stent placement H/O rhinoplasty History of Problems with Anesthesia: No Social History Social History Housing: House Are you a primary ostomy care nurse to a significant other at home: No Do you presently have visiting nurse or other home services: No Alcohol intake: never Patient Tobacco Use Status: Former Tobacco user Tobacco use type: Cigarette e-Cigarette/Vaping Use: Never Used Second Hand Smoke Exposure: No Advance Directives: No Advance Directives Information Provided: Yes service: No Current occupational status: disabled Cognitive needs: No Hearing needs: No Vision needs: Yes (Glasses) Meds Allergies Allergy/AdvReac Type Severity Reaction Status Date / Time Sulfa (Sulfonamide Allergy Mild UNKNOWN Verified 10/06/23 14:02 Antibiotics) Active Medications: Current Medications Lactated Ringer's (Lr) 1,000 mls @ 50 mls/hr IVCONT .Q20H [facility] Home Medications Medication Instructions Recorded Confirmed Last Taken Type cholecalciferol (vitamin D3) 25 25 mcg PO DAILY 06/23/23 10/06/23 Unknown History mcg (1,000 unit) capsule Exam Height,Weight and Vital Signs: Height 5 ft 3 in Weight 78.925 kg Last Vital Signs Temp 97.9 F 11/13/23 06:24 Pulse 89 11/13/23 06:24 Resp 16 11/13/23 06:24 BP 147/83 H 11/13/23 06:24 Pulse Ox 97 11/13/23 06:24 O2 Del Method Room Air 11/13/23 06:24 Airway Mallampati Class: II TM Dist: >3cm Neck ROM: Full Heart: rrr Lungs: cta Assessment and Plan Assessment Anesthesia Assessment: Anesthesia Plan Discussed and Chart Reviewed Final Anesthetic Review Family History of Problems with Anesthesia: No History of Problems with Anesthesia: No NPO: Yes ASA Class: III Final Preanesthetic Review: No Changes in Pt Med Stat, Meds/Allgs Chart Reviewed and Consent Obtained/Reviewed Patient Risk: Intermediate Procedure Risk: Intermediate Anesthetic Plan Anesthetic Plan: GA Disposition: Standard PACU
--- NOTE | 2023-11-13 06:58 | MHC.SHP ---
Pre-Procedural Eval Section A Date of Service: 11/13/23 The patient is an INPATIENT: No Changes since office visit: No Cold of Flu in the past 2 weeks, No New Medical Problems, No Changes in Medication and No Patient answered all questions The History & Physical has been completed within 30 days and I have reviewed it.: Yes Section B Chief Complaint: depression Details of Present Illness: recurrent paranoia depression Allergies: Allergies Allergy/AdvReac Type Severity Reaction Status Date / Time Sulfa (Sulfonamide Allergy Mild UNKNOWN Verified 10/06/23 14:02 Antibiotics) Review of Systems Sugical H&P ROS: Negative: Cardiovascular and Respiratory and Yes, Specify: Psychiatric (PI depression) Exam Surgical H&P Exam: Normal: Heart and Normal: Lungs Plan I have reviewed the history and physical and performed a pertinent physical examination on my patient. No changes have occurred unless specified. Time Spent With Patient Time: Total time managing care of this patient today ____ minutes.
--- NOTE | 2023-11-13 07:00 | HO.ECTPROC ---
ECT Procedure Note Diagnosis/Treatment Date of Service: 11/19/23 Diagnosis: Schizoaffective Disorder Treatment: Maintenance Interval Clinical Notes: Pt remains with pi but less depressed future oriented improved seens lucy do best with BT 0.5 Time: Total time managing care of this patient today __30__ minutes. ECT Settings Device: THYMATRON DGx Electrode Placement: Bitemporal Program/Pulse Width: 0.50 Energy Percent: 100 Seizure Duration By EEG (in seconds): 42 Medications Administration General Anesthetic: Etomidate (16) Muscle Relaxant: Succinylcholine (100) Ancillary Medications Analgesics: Torodol - Pre ECT Anti-emetics: Zofran - Pre ECT Airway Management Airway Management: Bag Mask Ventilation Treatment Recommendations No Changes Recommended: No change Notes: monitor for cognitive side effects Pt Tolerated Procedure w/o Issue: Yes
== END 2023-11-13 08:48 | disposition home or self-care (01) ==
PROVIDERS: PCP Physician Assistant; Visit Provider Psychiatry & Neurology Psychiatry
PROC: (CPT 90870; principal; 2023-11-13 07:00)
DX: F25.0 Schizoaffective disorder, bipolar type (principal); E03.9 Hypothyroidism, unspecified; E78.00 Pure hypercholesterolemia, unspecified; K76.9 Liver disease, unspecified; Z79.899 Other long term (current) drug therapy; Z88.2 Allergy status to sulfonamides; Z98.890 Other specified postprocedural states; Z87.891 Personal history of nicotine dependence
CPT/HCPCS: 90870; J0330; J1885; J2405

== ENCOUNTER → 2023-11-13 06:02 | Outpatient (BNV) | payer MEDICARE, MEDICAID, SELFPAY | PROVIDERS: PCP Physician Assistant; Visit Provider Psychiatry & Neurology Psychiatry | DX: F33.3 Major depressive disorder, recurrent, severe with psychotic symptoms (principal) | CPT/HCPCS: 90870 ==

== ENCOUNTER 2023-11-25 13:57 | Outpatient (REF) | payer MEDICARE, MEDICAID, SELFPAY | END 2023-11-25 13:58 | disposition home or self-care (01) | LOC: HO.LABR 13:57 | PROVIDERS: Visit Provider Psychiatry & Neurology Psychiatry | DX: Z79.899 Other long term (current) drug therapy (principal) | CPT/HCPCS: 36415; 85025 ==

== ENCOUNTER 2023-12-04 15:08 | Outpatient (REF) | payer MEDICARE, MEDICAID, SELFPAY ==
[2023-12-04 15:30] LABS: MANUAL DIFF FLAG NO
[2023-12-04 15:57] LABS: Basophils Absolute Auto 0.1 X10*3/uL (0.0-0.2); Basophils Percent Auto 0.6 % (0-2); Eosinophils Absolute Auto 0.3 X10*3/uL (0.0-0.4); Hematocrit 37.3 % (37.0-47.0); Hemoglobin 12.1 g/dl (12.0-16.0); Imm Gran Abs Auto 0.02 X10*3/uL (0.00-0.03); Imm Gran Pct Auto 0.2 % (0.0-0.4); Lymphocytes Absolute Auto 1.9 X10*3/uL (1.2-4.9); Lymphocytes Percent Auto 22.6 % (20-40); Mean Corpuscular HGB Conc 32.4 g/dl (31.0-35.0); Mean Corpuscular Volume 92.6 fL (80.0-98.0); Mean Platelet Volume 10.6 fL (9.4-12.3); Monocytes Absolute Auto 0.7 X10*3/uL (0.1-1.2); Monocytes Percent Auto 8.5 % (2-11); Neutrophils Absolute Auto 5.5 x10*3/uL (2.0-8.3); Neutrophils Percent Auto 64.1 % (45-73); Platelet Count 195 X10*3/uL (160-400); Red Blood Count 4.03 X10*6/uL (4.20-5.50); Red Cell Distribution Width 12.3 % (11.0-16.0); White Blood Count 8.5 X10*3/uL (4.8-10.8)
== END 2023-12-04 15:09 | disposition home or self-care (01) ==
LOC: HO.LABR 15:08
PROVIDERS: Visit Provider Psychiatry & Neurology Psychiatry
DX: Z13.89 Encounter for screening for other disorder (principal)
CPT/HCPCS: 36415; 85025

== ENCOUNTER 2023-12-09 10:03 | Outpatient (REF) | payer MEDICARE, MEDICAID, SELFPAY | END 2023-12-09 10:04 | disposition home or self-care (01) | LOC: HO.MAMMO 10:03 | PROVIDERS: PCP Physician Assistant; Visit Provider Internal Medicine | DX: Z12.31 Encounter for screening mammogram for malignant neoplasm of breast (principal) | CPT/HCPCS: 77063; 77067 ==

== ENCOUNTER → 2023-12-09 10:15 | Outpatient (BNV) | payer MEDICARE, MEDICAID, SELFPAY | PROVIDERS: PCP Physician Assistant; Visit Provider Radiology Diagnostic Radiology | DX: Z12.31 Encounter for screening mammogram for malignant neoplasm of breast (principal) | CPT/HCPCS: 77063; 77067 ==

== ENCOUNTER 2023-12-12 10:10 | Outpatient (REF) | payer MEDICARE, MEDICAID, SELFPAY | END 2023-12-12 10:11 | disposition home or self-care (01) | LOC: HO.LABR 10:10 | PROVIDERS: PCP Internal Medicine; Visit Provider Psychiatry & Neurology Psychiatry | DX: Z13.89 Encounter for screening for other disorder (principal) ==

== ENCOUNTER 2023-12-15 09:54 | Outpatient (REF) | payer MEDICARE, MEDICAID, SELFPAY ==
[2023-12-15 10:27] LABS: MANUAL DIFF FLAG NO
[2023-12-15 11:17] LABS: Basophils Absolute Auto 0.1 X10*3/uL (0.0-0.2); Basophils Percent Auto 0.7 % (0-2); Eosinophils Absolute Auto 0.2 X10*3/uL (0.0-0.4); Eosinophils Percent Auto 3.3 % (0-4); Hematocrit 38.1 % (37.0-47.0); Hemoglobin 12.5 g/dl (12.0-16.0); Imm Gran Abs Auto 0.02 X10*3/uL (0.00-0.03); Imm Gran Pct Auto 0.3 % (0.0-0.4); Lymphocytes Percent Auto 14.1 % (20-40); Mean Corpuscular HGB Conc 32.8 g/dl (31.0-35.0); Mean Corpuscular Hemoglobin 30.4 pg (27.0-33.0); Mean Corpuscular Volume 92.7 fL (80.0-98.0); Mean Platelet Volume 10.5 fL (9.4-12.3); Monocytes Absolute Auto 0.6 X10*3/uL (0.1-1.2); Monocytes Percent Auto 7.7 % (2-11); Neutrophils Absolute Auto 5.3 x10*3/uL (2.0-8.3); Neutrophils Percent Auto 73.9 % (45-73); Platelet Count 216 X10*3/uL (160-400); Red Blood Count 4.11 X10*6/uL (4.20-5.50); Red Cell Distribution Width 12.5 % (11.0-16.0); White Blood Count 7.2 X10*3/uL (4.8-10.8)
== END 2023-12-15 09:55 | disposition home or self-care (01) ==
LOC: HO.LABR 09:54
PROVIDERS: PCP Internal Medicine; Visit Provider Psychiatry & Neurology Psychiatry
DX: Z79.899 Other long term (current) drug therapy (principal)
CPT/HCPCS: 36415; 85025

== ENCOUNTER 2023-12-23 13:05 | Outpatient (REF) | payer MEDICARE, MEDICAID, SELFPAY ==
[2023-12-23 13:57] LABS: MANUAL DIFF FLAG NO
[2023-12-23 14:11] LABS: Basophils Absolute Auto 0.1 X10*3/uL (0.0-0.2); Basophils Percent Auto 0.7 % (0-2); Eosinophils Absolute Auto 0.2 X10*3/uL (0.0-0.4); Eosinophils Percent Auto 3.1 % (0-4); Hematocrit 39.9 % (37.0-47.0); Hemoglobin 13.1 g/dl (12.0-16.0); Imm Gran Abs Auto 0.02 X10*3/uL (0.00-0.03); Imm Gran Pct Auto 0.3 % (0.0-0.4); Lymphocytes Absolute Auto 1.4 X10*3/uL (1.2-4.9); Lymphocytes Percent Auto 18.5 % (20-40); Mean Corpuscular HGB Conc 32.8 g/dl (31.0-35.0); Mean Corpuscular Hemoglobin 30.4 pg (27.0-33.0); Mean Corpuscular Volume 92.6 fL (80.0-98.0); Mean Platelet Volume 10.1 fL (9.4-12.3); Monocytes Absolute Auto 0.5 X10*3/uL (0.1-1.2); Monocytes Percent Auto 7.2 % (2-11); Neutrophils Absolute Auto 5.3 x10*3/uL (2.0-8.3); Neutrophils Percent Auto 70.2 % (45-73); Platelet Count 230 X10*3/uL (160-400); Red Blood Count 4.31 X10*6/uL (4.20-5.50); Red Cell Distribution Width 12.3 % (11.0-16.0); White Blood Count 7.5 X10*3/uL (4.8-10.8)
== END 2023-12-23 13:06 | disposition home or self-care (01) ==
LOC: HO.LABR 13:05
PROVIDERS: Absent Provider Psychiatry & Neurology Psychiatry; PCP Internal Medicine; Visit Provider Psychiatry & Neurology Psychiatry
DX: F25.0 Schizoaffective disorder, bipolar type (principal); Z79.899 Other long term (current) drug therapy
CPT/HCPCS: 36415; 85025; 99212

== ENCOUNTER 2023-12-23 13:05 | Outpatient (AMB) | payer MEDICARE, MEDICAID, SELFPAY ==
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
== END 2023-12-23 14:17 | disposition home or self-care (01) ==
LOC: HO.HOP 13:05
PROVIDERS: PCP Internal Medicine; Visit Provider Psychiatry & Neurology Psychiatry
DX: F25.0 Schizoaffective disorder, bipolar type (principal)
CPT/HCPCS: 99214

== ENCOUNTER 2023-12-25 05:54 | Day surgery (SDC) | payer MEDICARE, MEDICAID, SELFPAY ==
[2023-12-25] VITALS (7 sets, daily range): BP systolic 112–157; BP diastolic 56–71; PULSE 47–93; RESP 16; TEMP 36.1–37.3; O2SAT 95–100; BMI 30.1
[2023-12-25] MEDS: Lactated Ringers 1,000 ML 50 ML IVCONT (06:45)
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
--- NOTE | 2023-12-25 07:01 | MHC.SHP ---
Pre-Procedural Eval Section A - 24 Hr Update-Section A only Date of Service: 12/25/23 The patient is an INPATIENT: No Changes since office visit: Yes Changes in Medication and Yes Patient answered all questions; No Cold of Flu in the past 2 weeks and No New Medical Problems The patient has been examined within 24 hours of the surgical procedure. The History & Physical has been completed within 30 days and I have reviewed it.: Yes Section B - Complete if H&P > 30 days Chief Complaint: depression Details of Present Illness: recurrent dep and pi Allergies: Allergies Allergy/AdvReac Type Severity Reaction Status Date / Time Sulfa (Sulfonamide Allergy Mild UNKNOWN Verified 10/06/23 14:02 Antibiotics) Review of Systems Sugical H&P ROS: Negative: Cardiovascular and Respiratory and Yes, Specify: Psychiatric (PI depression) Exam Surgical H&P Exam: Normal: Heart and Normal: Lungs (clear) Plan Diagnosis/Plan: Unchanged I have reviewed the history and physical and performed a pertinent physical examination on my patient. No changes have occurred unless specified. Time Spent With Patient Time: Total time managing care of this patient today ____ minutes.
--- NOTE | 2023-12-25 07:04 | HO.ECTPROC ---
ECT Procedure Note Diagnosis/Treatment Date of Service: 12/27/23 Diagnosis: Schizoaffective Disorder Previous ECT Date: 11/20/23 Treatment: Maintenance Interval Clinical Notes: Pt remains with pi but less depressed future oriented improved seens to do best with BT /rtlf 0.5 recent dec agapito lithium for memory processing Time: Total time managing care of this patient today ____ minutes. ECT Settings Device: THYMATRON DGx Electrode Placement: Rt temporal/ Lt frontal Program/Pulse Width: 0.50 Energy Percent: 80 Seizure Duration By EEG (in seconds): 58 Medications Administration General Anesthetic: Etomidate (16) Muscle Relaxant: Succinylcholine (100) Ancillary Medications Analgesics: Torodol - Pre ECT Anti-emetics: Zofran - Pre ECT Airway Management Airway Management: Bag Mask Ventilation Treatment Recommendations No Changes Recommended: No change Electrode Placement: Rt temporal/ Lt frontal Notes: monitor for cognitive side effects chamged to rtlf feels ect has been helpful to dec PI Pt Tolerated Procedure w/o Issue: Yes
== END 2023-12-25 08:30 | disposition home or self-care (01) ==
PROVIDERS: PCP Physician Assistant; Visit Provider Psychiatry & Neurology Psychiatry
PROC: (CPT 90870; principal; 2023-12-25 07:30)
DX: F25.0 Schizoaffective disorder, bipolar type (principal); E03.9 Hypothyroidism, unspecified; E78.00 Pure hypercholesterolemia, unspecified; K76.9 Liver disease, unspecified; Z79.899 Other long term (current) drug therapy; Z88.2 Allergy status to sulfonamides; Z98.890 Other specified postprocedural states; Z87.891 Personal history of nicotine dependence
CPT/HCPCS: 90870; J0330; J1885; J2405; J2704

== ENCOUNTER → 2023-12-25 05:54 | Outpatient (BNV) | payer MEDICARE, MEDICAID, SELFPAY | PROVIDERS: PCP Physician Assistant; Visit Provider Psychiatry & Neurology Psychiatry | DX: F33.3 Major depressive disorder, recurrent, severe with psychotic symptoms (principal) | CPT/HCPCS: 90870 ==

== ENCOUNTER 2024-01-02 10:05 | Outpatient (REF) | payer MEDICARE, MEDICAID, SELFPAY ==
[2024-01-02 10:23] LABS: MANUAL DIFF FLAG NO
[2024-01-02 10:36] LABS: Basophils Percent Auto 0.4 % (0-2); Eosinophils Absolute Auto 0.2 X10*3/uL (0.0-0.4); Eosinophils Percent Auto 2.3 % (0-4); Hematocrit 37.6 % (37.0-47.0); Hemoglobin 12.1 g/dl (12.0-16.0); Imm Gran Abs Auto 0.04 X10*3/uL (0.00-0.03); Imm Gran Pct Auto 0.4 % (0.0-0.4); Lymphocytes Absolute Auto 1.7 X10*3/uL (1.2-4.9); Lymphocytes Percent Auto 19.1 % (20-40); Mean Corpuscular HGB Conc 32.2 g/dl (31.0-35.0); Mean Corpuscular Volume 93.1 fL (80.0-98.0); Mean Platelet Volume 10.4 fL (9.4-12.3); Monocytes Absolute Auto 0.7 X10*3/uL (0.1-1.2); Monocytes Percent Auto 7.7 % (2-11); Neutrophils Absolute Auto 6.3 x10*3/uL (2.0-8.3); Neutrophils Percent Auto 70.1 % (45-73); Platelet Count 213 X10*3/uL (160-400); Red Blood Count 4.04 X10*6/uL (4.20-5.50); Red Cell Distribution Width 12.7 % (11.0-16.0)
== END 2024-01-02 10:06 | disposition home or self-care (01) ==
LOC: HO.LABR 10:05
PROVIDERS: PCP Internal Medicine; Visit Provider Psychiatry & Neurology Psychiatry
DX: Z79.899 Other long term (current) drug therapy (principal)
CPT/HCPCS: 36415; 85025

== ENCOUNTER 2024-01-09 08:54 | Outpatient (REF) | payer MEDICARE, MEDICAID, SELFPAY ==
[2024-01-09 09:08] LABS: MANUAL DIFF FLAG NO
[2024-01-09 10:03] LABS: Basophils Percent Auto 0.4 % (0-2); Eosinophils Absolute Auto 0.2 X10*3/uL (0.0-0.4); Eosinophils Percent Auto 2.9 % (0-4); Hematocrit 38.1 % (37.0-47.0); Hemoglobin 12.3 g/dl (12.0-16.0); Imm Gran Abs Auto 0.01 X10*3/uL (0.00-0.03); Imm Gran Pct Auto 0.1 % (0.0-0.4); Lymphocytes Absolute Auto 1.3 X10*3/uL (1.2-4.9); Lymphocytes Percent Auto 19.3 % (20-40); Mean Corpuscular HGB Conc 32.3 g/dl (31.0-35.0); Mean Corpuscular Hemoglobin 30.4 pg (27.0-33.0); Mean Corpuscular Volume 94.1 fL (80.0-98.0); Mean Platelet Volume 10.4 fL (9.4-12.3); Monocytes Absolute Auto 0.5 X10*3/uL (0.1-1.2); Monocytes Percent Auto 7.5 % (2-11); Neutrophils Absolute Auto 4.8 x10*3/uL (2.0-8.3); Neutrophils Percent Auto 69.8 % (45-73); Platelet Count 201 X10*3/uL (160-400); Red Blood Count 4.05 X10*6/uL (4.20-5.50); Red Cell Distribution Width 12.8 % (11.0-16.0); White Blood Count 6.8 X10*3/uL (4.8-10.8)
== END 2024-01-09 08:55 | disposition home or self-care (01) ==
LOC: HO.LAB 08:54
PROVIDERS: PCP Internal Medicine; Referring Provider Psychiatry & Neurology Psychiatry; Visit Provider Psychiatry & Neurology Psychiatry
DX: Z79.899 Other long term (current) drug therapy (principal)
CPT/HCPCS: 36415; 85025

== ENCOUNTER 2024-01-11 13:21 | Outpatient (AMB) | payer MEDICARE, MEDICAID, SELFPAY ==
[2024-01-11 13:38] VITALS: BP 102/62; PULSE 65; O2SAT 96; BMI 31.7
--- NOTE | 2024-01-11 13:38 | A.OFFPC_ITS ---
Vital Signs 01/11/24 13:38 Height 5 ft 3 in Weight 179 lb BMI 31.7 BP 102/62 Blood Pressure Location Lt brachial Position Sitting Pulse 65 Pulse Source Pulse Oximeter Pulse Oximetry (%) 96 Oxygen Delivery Method Room Air Intake Visit Reasons: ECG Intake Note: Pt is here for ECT F/U and per Dr. Alvarez pt needs EKG. Licensing Manager Required: No Accompanied by: Self / Same As Patient Allergies Sulfa (Sulfonamide Antibiotics) Allergy (Mild, Verified 01/11/24 13:49) UNKNOWN Medication List - Last Reconciled 01/11/24 by Anoop Tavares PA-C atorvastatin 20 mg PO DAILY cariprazine (Vraylar) 6 mg PO DAILY 30 days cholecalciferol (vitamin D3) 25 mcg PO DAILY clonazepam 0.5 - 1 mg (0.5 - 1 x 1 mg) PO TID clozapine 50 mg (2 x 25 mg) PO BEDTIME donepezil 10 mg PO DAILY fluvoxamine 50 mg PO BID levothyroxine 112 mcg PO DAILY lithium carbonate ER 300 mg PO DAILY lithium carbonate ER 900 mg (2 x 450 mg) PO BEDTIME loperamide 2 mg PO Q8H PRN 7 days olanzapine 10 mg PO TID 30 days Tobacco use date assessed: 01/11/24 Dental Screening Dental Screen Date: 01/11/24 Did you have a dental visit in the last 12 months?: Yes Did you have a dental problem in the last 6 months where you did not have access to dental care?: No Was dental information given to patient?: Patient has dentist HPI ECG HPI Details Patient is a 48-year-old female here today for a follow-up visit. She has a past medical history significant for schizophrenic disorder, bipolar disorder, major depressive disorder. She is under the supervision of a psychiatrist whom is running ECT treatments on her which she reports have been effective. Most recent EKG showing no cardiac rhythm abnormalities which was done in December 2023. Patient also on Clozaril and has gotten her CBC checked on a monthly basis. Most recent white blood cell count normal. Laboratory Tests 07/04/23 07/25/23 08/14/23 10:37 10:08 07:34 RBC 4.57 Hgb 13.9 Creatinine 0.96 0.97 TSH 2.17 [place] 1.02 10/02/23 01/09/24 10:57 09:07 RBC 4.32 Hgb 12.3 Creatinine TSH [place] PFSH Medical History Hypercholesterolemia Hypothyroid Liver laceration Hip fracture requiring operative repair Liver problem Schizoaffective disorder, bipolar type Depression Elevated cholesterol Surgical History History of surgery on lower extremity History of hip replacement History of tracheostomy History of hip surgery Status post aortic coarctation stent placement H/O rhinoplasty Family History Mother No problems noted. Father No problems noted. Social History Housing: House Are you a primary manager critical care unit to a significant other at home: No Do you presently have visiting nurse or other home services: No Alcohol intake: never Patient Tobacco Use Status: Former Tobacco user Tobacco use type: Cigarette e-Cigarette/Vaping Use: Never Used Second Hand Smoke Exposure: No service: No Current occupational status: disabled Cognitive needs: No Hearing needs: No Vision needs: Yes (Glasses) Female Reproductive History Menstrual Age of Menarche: 10 Questionnaire PHQ-9 Over the last 2 weeks, how often have you been bothered by any of the following problems? 1. Little interest or pleasure in doing things: not at all 2. Feeling down, depressed, or hopeless: not at all 3. Trouble falling or staying asleep, or sleeping too much: not at all 4. Feeling tired or having little energy: not at all 5. Poor appetite or overeating: not at all 6. Feeling bad about yourself - or that you are a failure or have let yourself or your family down: not at all 7. Trouble concentrating on things, such as reading the newspaper or watching television: not at all 8. Moving or speaking so slowly that other people could have noticed. Or the opposite - being so fidgety or restless that you have been moving around a lot more than usual: not at all 9. Thoughts that you would be better off or of hurting yourself in some way: not at all Total score: 0 Depression Screening Interpretation: Negative Depression Screening Done: Yes 24506 - PHQ-9 Billing: Yes Source: Developed by Drs. Adam Donohue, Gracie Toure, Rishi Abdi and colleagues, with an educational pranay from [employer]. Thrive Questionnaire Date Thrive assessed: 01/11/24 I am a: Patient What is your living situation today?: I have a steady place to live Within the past 12 months, did the food you bought not last and you didn't have the money to get more?: Never true Within the past 12 months, did you worry whether your food would run out before you got money to buy more?: Never true Do you have trouble paying for medicines?: No Do you have trouble getting transportation to medical appointments?: No Do you have trouble paying your heating and electricity bill?: No Do you have trouble taking care of your child, family member or friend?: No Do you have trouble with day-to-day activities such as bathing, preparing meals, shopping, managing finances, etc.?: No Are you currently unemployed and looking for a job?: No Are you interested in more education?: No Please select the resources that you would like help with: None Currently or been in a relationship where the following occur: no concerns reported THRIVE Score: 0 AUDIT C Alcohol Use Questionnaire (AUDIT-C) 1. How often do you have a drink containing alcohol?: Never 3. How often do you have six or more drinks on one occasion?: Never Total Score: 0 Score Reviewed/Action Taken: No JYOTSNA-7 AMB Questionnaire JYOTSNA-7 Date JYOTSNA - 7 assessed: 01/11/24 Feeling nervous, anxious, or on edge: 0 = Not at all Not being able to stop or control worryin = Not at all Worrying too much about different things: 0 = Not at all Trouble relaxin = Not at all Being so restless that it is hard to sit still: 0 = Not at all Becoming easily annoyed or irritable: 0 = Not at all Feeling afraid as if something awful might happen: 0 = Not at all Total JYOTSNA-7 score (0-4 normal; 5-9 mild; 10-14 moderate; 15-21 severe): 0 Source: Developed by Gracie Sarmiento Kurt Kroenke and colleagues, with an educational pranay from [employer]. JYOTSNA-7 Assessment Billing JYOTSNA-7 Assessment Tool: JYOTSNA-7 Assessment 26448 Physical exam (Primary Care) Vital Signs: Last Vital Signs Pulse 65 01/11/24 13:38 BP 102/62 01/11/24 13:38 Pulse Ox 96 01/11/24 13:38 Oxygen Delivery Method Room Air 01/11/24 13:38 BMI result Body Mass Index 31.7 Tobacco/Smoking Status: Tobacco use Status Tobacco use date assessed 01/11/24 01/11/24 13:47 Patient Tobacco Use Status Former Tobacco user 01/11/24 13:39 Tobacco use type Cigarette 01/11/24 13:39 e-Cigarette/Vaping Use Never Used 01/11/24 13:39 PHQ-9: PHQ-9 Score PHQ-9: Total score 0 01/11/24 13:47 Depression Screening Interpretation: Negative Thrive Assessment: Date of Thrive Assessment Date Thrive assessed 01/11/24 01/11/24 13:47 Currently or been in a relationship where the following occur: no concerns reported Assessment and Plan Assessment & Plan (1) Preoperative clearance: Code(s): Z01.818 - Encounter for other preprocedural examination Plan: Patient due for ECT treatment for her depression. Today's vitals stable. Most recent echocardiogram( December 2023) showing no cardiac abnormality. Patient medically clear for ECT treatment (2) Schizoaffective disorder, bipolar type: Comment: bipolar Code(s): F25.0 - Schizoaffective disorder, bipolar type Plan: As above Coding Level of Care Code Est Pt Level 3 (79771) Diagnoses Preoperative clearance Z01.818 Schizoaffective disorder, bipolar type F25.0 Additional Codes JYOTSNA-7 Assessment Billing - JYOTSNA-7 Assessment Tool: JYOTSNA-7 Assessment [id number] ([id number])
== END 2024-01-11 14:00 | disposition home or self-care (01) ==
PROVIDERS: PCP Physician Assistant; Visit Provider Physician Assistant
DX: F25.0 Schizoaffective disorder, bipolar type (principal); Z01.818 Encounter for other preprocedural examination
CPT/HCPCS: 99213

== ENCOUNTER 2024-01-16 10:33 | Outpatient (REF) | payer MEDICARE, MEDICAID, SELFPAY ==
[2024-01-16 10:42] LABS: MANUAL DIFF FLAG NO
[2024-01-16 11:13] LABS: Basophils Percent Auto 0.4 % (0-2); Eosinophils Absolute Auto 0.2 X10*3/uL (0.0-0.4); Hematocrit 38.1 % (37.0-47.0); Hemoglobin 12.3 g/dl (12.0-16.0); Imm Gran Abs Auto 0.02 X10*3/uL (0.00-0.03); Imm Gran Pct Auto 0.3 % (0.0-0.4); Lymphocytes Absolute Auto 1.6 X10*3/uL (1.2-4.9); Lymphocytes Percent Auto 20.1 % (20-40); Mean Corpuscular HGB Conc 32.3 g/dl (31.0-35.0); Mean Corpuscular Hemoglobin 30.1 pg (27.0-33.0); Mean Corpuscular Volume 93.2 fL (80.0-98.0); Mean Platelet Volume 10.2 fL (9.4-12.3); Monocytes Percent Auto 12.7 % (2-11); Neutrophils Absolute Auto 5.1 x10*3/uL (2.0-8.3); Neutrophils Percent Auto 64.5 % (45-73); Platelet Count 217 X10*3/uL (160-400); Red Blood Count 4.09 X10*6/uL (4.20-5.50); Red Cell Distribution Width 13.2 % (11.0-16.0); White Blood Count 7.9 X10*3/uL (4.8-10.8)
== END 2024-01-16 10:34 | disposition home or self-care (01) ==
LOC: HO.LABR 10:33
PROVIDERS: Visit Provider Psychiatry & Neurology Psychiatry
DX: Z79.899 Other long term (current) drug therapy (principal)
CPT/HCPCS: 36415; 85025

== ENCOUNTER 2024-01-18 06:06 | Day surgery (SDC) | payer MEDICARE, MEDICAID, SELFPAY ==
[2024-01-18] VITALS (7 sets, daily range): BP systolic 108–182; BP diastolic 58–88; PULSE 68–86; RESP 12–16; TEMP 36.6–37.4; O2SAT 94–99; BMI 30.1
--- NOTE | 2024-01-18 06:49 | P.CONAN_ITS ---
[facility] Active Problems Active Problems: All Active Problems (Updated 10/06/23 @ 14:09 by Anoop Tavares PA-C) Preoperative clearance (Acute) Left foot pain (Acute) Tinea pedis (Acute) Left foot pain (Acute) Shortness of breath (Acute) Hyperkalemia (Acute) Diarrhea (Acute) Palpitation (Acute) Eczema (Acute) Postmenopausal bleeding (Acute) Amenorrhea (Acute) Well woman exam (Acute) Menopause (Acute) Complex ovarian cyst (Acute) Elevated blood pressure reading without diagnosis of hypertension (Acute) Hypercholesterolemia (Acute) Hypothyroid (Acute) Schizoaffective disorder, bipolar type (Acute) Past Medical History Medical History Hypercholesterolemia Hypothyroid Liver laceration Hip fracture requiring operative repair Liver problem Schizoaffective disorder, bipolar type Depression Elevated cholesterol Family History Family History Mother No problems noted. Father No problems noted. Family history of problems with anesthesia: No Surgical History Surgical History History of surgery on lower extremity History of hip replacement History of tracheostomy History of hip surgery Status post aortic coarctation stent placement H/O rhinoplasty History of Problems with Anesthesia: No Social History Social History Housing: House Are you a primary care coordinator to a significant other at home: No Do you presently have visiting nurse or other home services: No Alcohol intake: never Patient Tobacco Use Status: Former Tobacco user Tobacco use type: Cigarette e-Cigarette/Vaping Use: Never Used Second Hand Smoke Exposure: No Advance Directives: No Advance Directives Information Provided: Yes service: No Current occupational status: disabled Cognitive needs: No Hearing needs: No Vision needs: Yes (Glasses) Meds Allergies Allergy/AdvReac Type Severity Reaction Status Date / Time Sulfa (Sulfonamide Allergy Mild UNKNOWN Verified 01/11/24 13:49 Antibiotics) Home Medications Medication Instructions Recorded Confirmed Last Taken Type cholecalciferol (vitamin D3) 25 25 mcg PO DAILY 06/23/23 01/11/24 Unknown History mcg (1,000 unit) capsule Exam Height,Weight and Vital Signs: Height 5 ft 3 in Weight 77.111 kg Last Vital Signs Temp 98 F 01/18/24 06:25 Pulse 86 01/18/24 06:25 Resp 16 01/18/24 06:25 BP 136/73 01/18/24 06:25 Pulse Ox 99 01/18/24 06:25 O2 Del Method Room Air 01/18/24 06:25 Airway Mallampati Class: II TM Dist: >3cm Neck ROM: Full Heart: rrr Lungs: cta Assessment and Plan Assessment Anesthesia Assessment: Anesthesia Plan Discussed and Chart Reviewed Final Anesthetic Review Family History of Problems with Anesthesia: No History of Problems with Anesthesia: No NPO: Yes ASA Class: III Final Preanesthetic Review: No Changes in Pt Med Stat, Meds/Allgs Chart Reviewed and Consent Obtained/Reviewed Patient Risk: Intermediate Procedure Risk: Intermediate Anesthetic Plan Anesthetic Plan: GA Disposition: Standard PACU
--- NOTE | 2024-01-18 07:07 | MHC.SHP ---
Pre-Procedural Eval Section A - 24 Hr Update-Section A only Date of Service: 01/18/24 The patient is an INPATIENT: No Changes since office visit: Yes Cold of Flu in the past 2 weeks, Yes New Medical Problems, Yes Changes in Medication and Yes Patient answered all questions The patient has been examined within 24 hours of the surgical procedure. The History & Physical has been completed within 30 days and I have reviewed it.: No Section B - Complete if H&P > 30 days Chief Complaint: depression Allergies: Allergies Allergy/AdvReac Type Severity Reaction Status Date / Time Sulfa (Sulfonamide Allergy Mild UNKNOWN Verified 01/11/24 13:49 Antibiotics) Plan I have reviewed the history and physical and performed a pertinent physical examination on my patient. No changes have occurred unless specified. Time Spent With Patient Time: Total time managing care of this patient today ____ minutes.
--- NOTE | 2024-01-18 07:20 | HO.ECTPROC ---
ECT Procedure Note Diagnosis/Treatment Date of Service: 01/18/24 Diagnosis: Schizoaffective Disorder Previous ECT Date: 12/25/23 Treatment: Maintenance Interval Clinical Notes: The patient reported that she has not been taking Lorazepam for the last 2 days and she slept much better. Mild dysphoria. She denies side effects with the previous ECT. Today, she asked if we can try bitemporal setting, we agreed on the change of technique, fully aware of the possible side effects and benefits. Procedure done without any complications, woke up well. Time: Total time managing care of this patient today __30__ minutes. ECT Settings Device: THYMATRON DGx Electrode Placement: Bitemporal Seizure Duration By EEG (in seconds): 50 By Motor Observation (in seconds): 34 Medications Administration General Anesthetic: Etomidate (16) Muscle Relaxant: Succinylcholine (100) Ancillary Medications Analgesics: Torodol - Pre ECT Anti-emetics: Zofran - Pre ECT Airway Management Airway Management: Bag Mask Ventilation Treatment Recommendations No Changes Recommended: No change Pt Tolerated Procedure w/o Issue: Yes
== END 2024-01-18 08:25 | disposition home or self-care (01) ==
PROVIDERS: PCP Physician Assistant; Visit Provider Psychiatry & Neurology Psychiatry
PROC: (CPT 90870; principal; 2024-01-18 07:30)
DX: F25.0 Schizoaffective disorder, bipolar type (principal); E03.9 Hypothyroidism, unspecified; E78.00 Pure hypercholesterolemia, unspecified; K76.9 Liver disease, unspecified; Z79.899 Other long term (current) drug therapy; Z88.2 Allergy status to sulfonamides; Z98.890 Other specified postprocedural states; Z87.891 Personal history of nicotine dependence
CPT/HCPCS: 90870; J0330; J1885; J2405

== ENCOUNTER → 2024-01-18 06:06 | Outpatient (BNV) | payer MEDICARE, MEDICAID, SELFPAY | PROVIDERS: PCP Physician Assistant; Visit Provider Psychiatry & Neurology Psychiatry | DX: F33.3 Major depressive disorder, recurrent, severe with psychotic symptoms (principal) | CPT/HCPCS: 90870 ==

== ENCOUNTER 2024-01-23 10:35 | Outpatient (REF) | payer MEDICARE, MEDICAID, SELFPAY ==
[2024-01-23 11:41] LABS: Basophils Percent Auto 0.6 % (0-2); Eosinophils Absolute Auto 0.2 X10*3/uL (0.0-0.4); Eosinophils Percent Auto 2.4 % (0-4); Hematocrit 39.7 % (37.0-47.0); Hemoglobin 12.9 g/dl (12.0-16.0); Imm Gran Abs Auto 0.02 X10*3/uL (0.00-0.03); Imm Gran Pct Auto 0.3 % (0.0-0.4); Lymphocytes Absolute Auto 1.6 X10*3/uL (1.2-4.9); Lymphocytes Percent Auto 22.6 % (20-40); MANUAL DIFF FLAG NO; Mean Corpuscular HGB Conc 32.5 g/dl (31.0-35.0); Mean Corpuscular Hemoglobin 30.5 pg (27.0-33.0); Mean Corpuscular Volume 93.9 fL (80.0-98.0); Mean Platelet Volume 10.2 fL (9.4-12.3); Monocytes Absolute Auto 0.7 X10*3/uL (0.1-1.2); Monocytes Percent Auto 9.8 % (2-11); Neutrophils Absolute Auto 4.5 x10*3/uL (2.0-8.3); Neutrophils Percent Auto 64.3 % (45-73); Platelet Count 230 X10*3/uL (160-400); Red Blood Count 4.23 X10*6/uL (4.20-5.50); Red Cell Distribution Width 13.2 % (11.0-16.0); White Blood Count 7.1 X10*3/uL (4.8-10.8)
== END 2024-01-23 10:36 | disposition home or self-care (01) ==
LOC: HO.LABR 10:35
PROVIDERS: PCP Internal Medicine; Visit Provider Psychiatry & Neurology Psychiatry
DX: Z79.899 Other long term (current) drug therapy (principal)
CPT/HCPCS: 36415; 85025

== ENCOUNTER 2024-01-26 11:33 | Outpatient (AMB) | payer MEDICARE, MEDICAID, SELFPAY ==
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
== END 2024-01-26 12:35 | disposition home or self-care (01) ==
LOC: HO.HOP 11:39
PROVIDERS: PCP Internal Medicine; Visit Provider Psychiatry & Neurology Psychiatry
DX: F25.0 Schizoaffective disorder, bipolar type (principal)
CPT/HCPCS: 99214

== ENCOUNTER → 2024-01-26 11:33 | Outpatient (BNVA) | payer MEDICARE, MEDICAID, SELFPAY | PROVIDERS: PCP Internal Medicine; Visit Provider Psychiatry & Neurology Psychiatry | DX: F25.0 Schizoaffective disorder, bipolar type (principal) | CPT/HCPCS: 99212 ==

== ENCOUNTER 2024-02-01 09:22 | Outpatient (AMB) | payer MEDICARE, MEDICAID, SELFPAY ==
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
[2024-02-01 09:30] VITALS: BP 108/60; BMI 31.9
== END 2024-02-01 09:45 | disposition home or self-care (01) ==
LOC: HO.HWS 09:22
PROVIDERS: PCP Internal Medicine; Visit Provider Obstetrics & Gynecology
DX: Z01.419 Encounter for gynecological examination (general) (routine) without abnormal findings (principal)
CPT/HCPCS: G0101

== ENCOUNTER 2024-02-01 09:22 | Outpatient (REF) | payer MEDICARE, MEDICAID, SELFPAY ==
[2024-02-01 11:12] LABS: Lithium 1.14 mmol/L (0.60-1.20)
[2024-02-04 05:23] LABS: Clozapine (Clozaril) 183 mcg/L; Norclozapine 110 mcg/L (25-400)
== END 2024-02-01 09:23 | disposition home or self-care (01) ==
LOC: HO.LAB 09:22
PROVIDERS: Absent Provider Psychiatry & Neurology Psychiatry; PCP Internal Medicine; Visit Provider Obstetrics & Gynecology
DX: Z01.419 Encounter for gynecological examination (general) (routine) without abnormal findings (principal); F31.77 Bipolar disorder, in partial remission, most recent episode mixed; F25.0 Schizoaffective disorder, bipolar type
CPT/HCPCS: 36415; 80159; 80178; G0101

== ENCOUNTER 2024-02-03 05:59 | Day surgery (SDC) | payer MEDICARE, MEDICAID, SELFPAY ==
[2024-02-03] VITALS (8 sets, daily range): BP systolic 106–136; BP diastolic 57–68; PULSE 66–89; RESP 16; TEMP 36.6–37.8; O2SAT 96–100; BMI 31.2
--- NOTE | 2024-02-03 06:40 | HO.ANESPROP2 ---
[facility] Active Problems Active Problems: All Active Problems (Updated 01/24/24 @ 22:08 by Jose Carlos Alvarez MD) Preoperative clearance (Acute) Left foot pain (Acute) Tinea pedis (Acute) Left foot pain (Acute) Shortness of breath (Acute) Hyperkalemia (Acute) Diarrhea (Acute) Palpitation (Acute) Eczema (Acute) Postmenopausal bleeding (Acute) Amenorrhea (Acute) Well woman exam (Acute) Menopause (Acute) Complex ovarian cyst (Acute) Elevated blood pressure reading without diagnosis of hypertension (Acute) Hypercholesterolemia (Acute) Hypothyroid (Acute) Schizoaffective disorder, bipolar type (Chronic) Past Medical History Medical History Hypercholesterolemia Hypothyroid Liver laceration Hip fracture requiring operative repair Liver problem Schizoaffective disorder, bipolar type Depression Elevated cholesterol Family History Family History Mother No problems noted. Father No problems noted. Family history of problems with anesthesia: No Surgical History Surgical History History of surgery on lower extremity History of hip replacement History of tracheostomy History of hip surgery Status post aortic coarctation stent placement H/O rhinoplasty History of Problems with Anesthesia: No Social History Social History Housing: House Are you a primary rn intensive care unit to a significant other at home: No Do you presently have visiting nurse or other home services: No Alcohol intake: never Patient Tobacco Use Status: Former Tobacco user Tobacco use type: Cigarette e-Cigarette/Vaping Use: Never Used Second Hand Smoke Exposure: No Advance Directives: No Advance Directives Information Provided: Yes service: No Current occupational status: disabled Cognitive needs: No Hearing needs: No Vision needs: Yes (Glasses) Meds Allergies Allergy/AdvReac Type Severity Reaction Status Date / Time Sulfa (Sulfonamide Allergy Mild UNKNOWN Verified 02/01/24 09:33 Antibiotics) Home Medications Medication Instructions Recorded Confirmed Last Taken Type cholecalciferol (vitamin D3) 25 25 mcg PO DAILY 06/23/23 01/26/24 Unknown History mcg (1,000 unit) capsule Exam Airway Mallampati Class: II TM Dist: >3cm Neck ROM: Full Heart: rrr Lungs: cta Assessment and Plan Assessment Anesthesia Assessment: Anesthesia Plan Discussed and Chart Reviewed Final Anesthetic Review Family History of Problems with Anesthesia: No History of Problems with Anesthesia: No NPO: Yes ASA Class: III Final Preanesthetic Review: No Changes in Pt Med Stat, Meds/Allgs Chart Reviewed and Consent Obtained/Reviewed Patient Risk: Intermediate Procedure Risk: Intermediate Anesthetic Plan Anesthetic Plan: GA Disposition: Standard PACU
[2024-02-03] MEDS: Lactated Ringers 1,000 ML 50 ML IVCONT (06:45)
--- NOTE | 2024-02-03 06:57 | MHC.SHP ---
Pre-Procedural Eval Section A - 24 Hr Update-Section A only Date of Service: 02/03/24 Section B - Complete if H&P > 30 days Chief Complaint: schizoaffective dx Details of Present Illness: recurrent dep with paranoia History of Previous Operations: Relevant previous surgery/procedure and date(s) (ect) Allergies: Allergies Allergy/AdvReac Type Severity Reaction Status Date / Time Sulfa (Sulfonamide Allergy Mild UNKNOWN Verified 02/01/24 09:33 Antibiotics) Review of Systems Sugical H&P ROS: Negative: Cardiovascular and Respiratory and Yes, Specify: Neurological (working attn difficulty) Exam Surgical H&P Exam: Normal: Heart and Normal: Lungs Plan Diagnosis/Plan: Unchanged I have reviewed the history and physical and performed a pertinent physical examination on my patient. No changes have occurred unless specified. Time Spent With Patient Time: Total time managing care of this patient today ____ minutes.
--- NOTE | 2024-02-03 07:05 | HO.ECTPROC ---
ECT Procedure Note Diagnosis/Treatment Date of Service: 02/03/24 Diagnosis: Schizoaffective Disorder Previous ECT Date: 12/25/23 Treatment: Maintenance Interval Clinical Notes: Patient is feeling relatively stable CBC ordered patient on Clozaril continues on lithium Vraylar continues to feel ECT helpful helps depression Time: Total time managing care of this patient today _30___ minutes. ECT Settings Device: THYMATRON DGx Electrode Placement: Rt temporal/ Lt frontal Program/Pulse Width: 0.50 Energy Percent: 100 Seizure Duration By EEG (in seconds): 50 Medications Administration General Anesthetic: Etomidate (16) Muscle Relaxant: Succinylcholine (100) Ancillary Medications Analgesics: Torodol - Pre ECT Anti-emetics: Zofran - Pre ECT Airway Management Airway Management: Bag Mask Ventilation Treatment Recommendations No Changes Recommended: No change Notes: Follow-up treatment scheduled 3 weeks trying to find dosing that maintains mood and limits cognitive side effects Pt Tolerated Procedure w/o Issue: Yes
[2024-02-03 07:45] LABS: MANUAL DIFF FLAG NO
[2024-02-03 07:49] LABS: Basophils Percent Auto 0.6 % (0-2); Eosinophils Absolute Auto 0.1 X10*3/uL (0.0-0.4); Eosinophils Percent Auto 1.6 % (0-4); Hematocrit 35.6 % (37.0-47.0); Hemoglobin 11.9 g/dl (12.0-16.0); Imm Gran Abs Auto 0.01 X10*3/uL (0.00-0.03); Imm Gran Pct Auto 0.2 % (0.0-0.4); Lymphocytes Absolute Auto 0.8 X10*3/uL (1.2-4.9); Lymphocytes Percent Auto 12.8 % (20-40); Mean Corpuscular HGB Conc 33.4 g/dl (31.0-35.0); Mean Corpuscular Hemoglobin 31.3 pg (27.0-33.0); Mean Corpuscular Volume 93.7 fL (80.0-98.0); Mean Platelet Volume 9.9 fL (9.4-12.3); Monocytes Absolute Auto 0.4 X10*3/uL (0.1-1.2); Monocytes Percent Auto 6.1 % (2-11); Neutrophils Absolute Auto 4.9 x10*3/uL (2.0-8.3); Neutrophils Percent Auto 78.7 % (45-73); Platelet Count 203 X10*3/uL (160-400); Red Cell Distribution Width 13.8 % (11.0-16.0); White Blood Count 6.2 X10*3/uL (4.8-10.8)
== END 2024-02-03 08:43 | disposition home or self-care (01) ==
PROVIDERS: PCP Physician Assistant; Visit Provider Psychiatry & Neurology Psychiatry
PROC: (CPT 90870; principal; 2024-02-03 07:30)
DX: F25.0 Schizoaffective disorder, bipolar type (principal); F32.A Depression, unspecified; E78.00 Pure hypercholesterolemia, unspecified; E03.9 Hypothyroidism, unspecified; Z79.899 Other long term (current) drug therapy; Z88.2 Allergy status to sulfonamides; Z98.890 Other specified postprocedural states; Z87.891 Personal history of nicotine dependence
CPT/HCPCS: 36415; 85025; 90870; J0330; J1885; J2405

== ENCOUNTER → 2024-02-03 05:59 | Outpatient (BNV) | payer MEDICARE, MEDICAID, SELFPAY | PROVIDERS: PCP Physician Assistant; Visit Provider Psychiatry & Neurology Psychiatry | DX: F33.3 Major depressive disorder, recurrent, severe with psychotic symptoms (principal) | CPT/HCPCS: 90870 ==

== ENCOUNTER 2024-02-05 14:02 | Outpatient (REF) | payer MEDICARE, MEDICAID, SELFPAY ==
[2024-02-05 14:14] LABS: MANUAL DIFF FLAG NO
[2024-02-05 15:07] LABS: Basophils Absolute Auto 0.1 X10*3/uL (0.0-0.2); Basophils Percent Auto 0.7 % (0-2); Eosinophils Absolute Auto 0.2 X10*3/uL (0.0-0.4); Eosinophils Percent Auto 2.5 % (0-4); Hematocrit 38.6 % (37.0-47.0); Hemoglobin 12.6 g/dl (12.0-16.0); Imm Gran Abs Auto 0.03 X10*3/uL (0.00-0.03); Imm Gran Pct Auto 0.3 % (0.0-0.4); Lymphocytes Absolute Auto 1.6 X10*3/uL (1.2-4.9); Mean Corpuscular HGB Conc 32.6 g/dl (31.0-35.0); Mean Corpuscular Hemoglobin 31.1 pg (27.0-33.0); Mean Corpuscular Volume 95.3 fL (80.0-98.0); Mean Platelet Volume 10.1 fL (9.4-12.3); Monocytes Absolute Auto 0.9 X10*3/uL (0.1-1.2); Monocytes Percent Auto 10.2 % (2-11); Neutrophils Absolute Auto 6.3 x10*3/uL (2.0-8.3); Neutrophils Percent Auto 69.3 % (45-73); Platelet Count 236 X10*3/uL (160-400); Red Blood Count 4.05 X10*6/uL (4.20-5.50); Red Cell Distribution Width 13.5 % (11.0-16.0); White Blood Count 9.1 X10*3/uL (4.8-10.8)
== END 2024-02-05 14:03 | disposition home or self-care (01) ==
LOC: HO.LAB 14:02
PROVIDERS: Absent Provider Psychiatry & Neurology Psychiatry; PCP Internal Medicine; Visit Provider Psychiatry & Neurology Psychiatry
DX: Z79.899 Other long term (current) drug therapy (principal)
CPT/HCPCS: 36415; 85025

== ENCOUNTER 2024-02-12 11:32 | Outpatient (REF) | payer MEDICARE, MEDICAID, SELFPAY ==
[2024-02-12 11:58] LABS: MANUAL DIFF FLAG NO
[2024-02-12 12:49] LABS: Basophils Absolute Auto 0.1 X10*3/uL (0.0-0.2); Basophils Percent Auto 0.8 % (0-2); Eosinophils Absolute Auto 0.2 X10*3/uL (0.0-0.4); Eosinophils Percent Auto 3.1 % (0-4); Hematocrit 39.5 % (37.0-47.0); Hemoglobin 12.9 g/dl (12.0-16.0); Imm Gran Abs Auto 0.02 X10*3/uL (0.00-0.03); Imm Gran Pct Auto 0.3 % (0.0-0.4); Lymphocytes Absolute Auto 1.5 X10*3/uL (1.2-4.9); Lymphocytes Percent Auto 22.6 % (20-40); Mean Corpuscular HGB Conc 32.7 g/dl (31.0-35.0); Mean Corpuscular Hemoglobin 30.7 pg (27.0-33.0); Mean Platelet Volume 9.9 fL (9.4-12.3); Monocytes Absolute Auto 0.5 X10*3/uL (0.1-1.2); Monocytes Percent Auto 7.2 % (2-11); Neutrophils Absolute Auto 4.2 x10*3/uL (2.0-8.3); Platelet Count 244 X10*3/uL (160-400); Red Cell Distribution Width 13.4 % (11.0-16.0); White Blood Count 6.4 X10*3/uL (4.8-10.8)
== END 2024-02-12 11:33 | disposition home or self-care (01) ==
LOC: HO.LAB 11:32
PROVIDERS: PCP Internal Medicine; Visit Provider Psychiatry & Neurology Psychiatry
DX: F25.0 Schizoaffective disorder, bipolar type (principal)
CPT/HCPCS: 36415; 85025

== ENCOUNTER 2024-02-20 10:09 | Outpatient (REF) | payer MEDICARE, MEDICAID, SELFPAY | END 2024-02-20 10:10 | disposition home or self-care (01) | LOC: HO.LABR 10:09 | PROVIDERS: Visit Provider Psychiatry & Neurology Psychiatry | DX: Z13.89 Encounter for screening for other disorder (principal) ==

== ENCOUNTER 2024-02-23 11:05 | Outpatient (AMB) | payer MEDICARE, MEDICAID, SELFPAY ==
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
== END 2024-02-23 12:04 | disposition home or self-care (01) ==
LOC: HO.HOP 11:05
PROVIDERS: PCP Internal Medicine; Visit Provider Psychiatry & Neurology Psychiatry
DX: F25.0 Schizoaffective disorder, bipolar type (principal)
CPT/HCPCS: 90833; 99213

== ENCOUNTER 2024-02-23 11:05 | Outpatient (REF) | payer MEDICARE, MEDICAID, SELFPAY ==
--- NOTE | 2024-02-23 11:58 | ECG_ITS ---
Test Reason : Z79.899 Blood Pressure : / mmHG Vent. Rate : 065 BPM Atrial Rate : 065 BPM P-R Int : 196 ms QRS Dur : 096 ms QT Int : 420 ms P-R-T Axes : 048 -07 030 degrees QTc Int : 436 ms Normal sinus rhythm Nonspecific ST abnormality Abnormal ECG When compared with ECG of 01-MAY-2023 09:43, Vent. rate has decreased BY 37 BPM QRS axis Shifted right Referred By: Jose Carlos Alvarez Electronically Signed By:ARIANE LOONEY MD
[2024-02-23 12:16] LABS: MANUAL DIFF FLAG NO
[2024-02-23 12:28] LABS: Basophils Absolute Auto 0.1 X10*3/uL (0.0-0.2); Basophils Percent Auto 0.7 % (0-2); Eosinophils Absolute Auto 0.2 X10*3/uL (0.0-0.4); Eosinophils Percent Auto 2.7 % (0-4); Hematocrit 39.7 % (37.0-47.0); Imm Gran Abs Auto 0.03 X10*3/uL (0.00-0.03); Imm Gran Pct Auto 0.3 % (0.0-0.4); Lymphocytes Absolute Auto 1.4 X10*3/uL (1.2-4.9); Lymphocytes Percent Auto 16.1 % (20-40); Mean Corpuscular HGB Conc 32.7 g/dl (31.0-35.0); Mean Corpuscular Hemoglobin 31.4 pg (27.0-33.0); Mean Corpuscular Volume 95.9 fL (80.0-98.0); Monocytes Absolute Auto 0.6 X10*3/uL (0.1-1.2); Monocytes Percent Auto 7.2 % (2-11); Neutrophils Absolute Auto 6.3 x10*3/uL (2.0-8.3); Platelet Count 223 X10*3/uL (160-400); Red Blood Count 4.14 X10*6/uL (4.20-5.50); Red Cell Distribution Width 13.4 % (11.0-16.0); White Blood Count 8.7 X10*3/uL (4.8-10.8)
[2024-02-29 05:48] LABS: Clozapine (Clozaril) 194 mcg/L; Norclozapine 103 mcg/L (25-400)
== END 2024-02-23 11:06 | disposition home or self-care (01) ==
LOC: HO.LAB 11:05
PROVIDERS: PCP Internal Medicine; Visit Provider Psychiatry & Neurology Psychiatry
DX: F25.0 Schizoaffective disorder, bipolar type (principal); F31.77 Bipolar disorder, in partial remission, most recent episode mixed; R00.2 Palpitations; Z79.899 Other long term (current) drug therapy
CPT/HCPCS: 36415; 80159; 85025; 93005; 99212

== ENCOUNTER → 2024-02-23 11:58 | Outpatient (BNV) | payer MEDICARE, MEDICAID, SELFPAY | PROVIDERS: PCP Internal Medicine; Visit Provider Internal Medicine Cardiovascular Disease | DX: R94.31 Abnormal electrocardiogram [ECG] [EKG] (principal) | CPT/HCPCS: 93010 ==

== ENCOUNTER 2024-03-04 13:58 | Outpatient (REF) | payer MEDICARE, MEDICAID, SELFPAY ==
[2024-03-04 14:08] LABS: MANUAL DIFF FLAG NO
[2024-03-04 15:20] LABS: Basophils Absolute Auto 0.1 X10*3/uL (0.0-0.2); Basophils Percent Auto 0.6 % (0-2); Eosinophils Absolute Auto 0.2 X10*3/uL (0.0-0.4); Eosinophils Percent Auto 2.7 % (0-4); Hematocrit 40.5 % (37.0-47.0); Hemoglobin 13.4 g/dl (12.0-16.0); Imm Gran Abs Auto 0.02 X10*3/uL (0.00-0.03); Imm Gran Pct Auto 0.3 % (0.0-0.4); Lymphocytes Absolute Auto 1.7 X10*3/uL (1.2-4.9); Mean Corpuscular HGB Conc 33.1 g/dl (31.0-35.0); Mean Corpuscular Hemoglobin 30.8 pg (27.0-33.0); Mean Corpuscular Volume 93.1 fL (80.0-98.0); Mean Platelet Volume 10.3 fL (9.4-12.3); Monocytes Absolute Auto 0.5 X10*3/uL (0.1-1.2); Monocytes Percent Auto 6.9 % (2-11); Neutrophils Absolute Auto 5.2 x10*3/uL (2.0-8.3); Neutrophils Percent Auto 67.5 % (45-73); Platelet Count 215 X10*3/uL (160-400); Red Blood Count 4.35 X10*6/uL (4.20-5.50); White Blood Count 7.7 X10*3/uL (4.8-10.8)
== END 2024-03-04 13:59 | disposition home or self-care (01) ==
LOC: HO.LABR 13:58
PROVIDERS: Absent Provider Psychiatry & Neurology Psychiatry; PCP Internal Medicine; Visit Provider Psychiatry & Neurology Psychiatry
DX: Z79.899 Other long term (current) drug therapy (principal)
CPT/HCPCS: 36415; 85025

== ENCOUNTER 2024-03-11 10:14 | Outpatient (REF) | payer MEDICARE, MEDICAID, SELFPAY ==
[2024-03-11 10:29] LABS: MANUAL DIFF FLAG NO
[2024-03-11 10:51] LABS: Basophils Absolute Auto 0.1 X10*3/uL (0.0-0.2); Basophils Percent Auto 0.6 % (0-2); Eosinophils Absolute Auto 0.2 X10*3/uL (0.0-0.4); Eosinophils Percent Auto 2.8 % (0-4); Hemoglobin 12.6 g/dl (12.0-16.0); Imm Gran Abs Auto 0.02 X10*3/uL (0.00-0.03); Imm Gran Pct Auto 0.2 % (0.0-0.4); Lymphocytes Absolute Auto 1.5 X10*3/uL (1.2-4.9); Lymphocytes Percent Auto 17.2 % (20-40); Mean Corpuscular HGB Conc 32.3 g/dl (31.0-35.0); Mean Corpuscular Volume 95.8 fL (80.0-98.0); Mean Platelet Volume 9.8 fL (9.4-12.3); Monocytes Absolute Auto 0.5 X10*3/uL (0.1-1.2); Monocytes Percent Auto 5.9 % (2-11); Neutrophils Absolute Auto 6.2 x10*3/uL (2.0-8.3); Neutrophils Percent Auto 73.3 % (45-73); Platelet Count 218 X10*3/uL (160-400); Red Blood Count 4.07 X10*6/uL (4.20-5.50); White Blood Count 8.5 X10*3/uL (4.8-10.8)
== END 2024-03-11 10:15 | disposition home or self-care (01) ==
LOC: HO.LAB 10:14
PROVIDERS: PCP Internal Medicine; Visit Provider Psychiatry & Neurology Psychiatry
DX: Z79.899 Other long term (current) drug therapy (principal)
CPT/HCPCS: 36415; 85025

== ENCOUNTER 2024-03-16 06:00 | Day surgery (SDC) | payer MEDICARE, MEDICAID, SELFPAY ==
--- OUTSIDE RECORDS SUMMARY | 2024-03-16 06:02 | XMS_ITS | Continuity of Care Document ---
Author Organization [facility] Address [address] [place] [id number]- Care Team Providers Care Loss Prevention Analyst Name Role Phone Carlyle GAN, Bashir Laws Primary Care Physic shadi Encounter [facility] Date(s): 01/02/22 - 02/01/22 [facility] [address] [place] [address]- Attending Physician: Norberto Martínez Admitting Physician: AdmNorberto keys Referring Physician: AdmtrNorberto Allergies, Adverse Reactions, Alerts Substance Reaction Severity Status sulfADIAZINE Active sulfa drugs Active Immunizations Given and Recorded Vaccine Date Status Refusal Reason influenza virus vaccine, inactivated 10/01/18 Tim rded influenza virus vaccine, inactivated 1 08/18/17 Gi cris tetanus/diphtheria/pertussis, acel(Tdap) 03/17/17 Given 1Admin Note: [facility] Medications aspirin 81 mg oral tablet, chewable 81 mg, By Mouth, Daily, Refills 0, Maintenance, 05/11/19 10:21:56 EDT Start Date: 05/11/19 Status: Ordered atorvastatin 20 mg oral tablet 1 tablet = 20 mg, By Mouth, Daily, # 30 tablet, 0 Refills, Maintenance, Tablet Start Date: 04/25/19 Status: Ordered atropine-diphenoxylate 0.025 mg-2.5 mg oral tablet 2, tablet, By Mouth, 2 times a day, # 30 tablet, Refills 0, Tot. Refills 0, Maintenance, 07/16/18 9:21:59 EDT, Do Not Route Start Date: 07/16/18 Status: Ordered Benztropine 0 Refills, Maintenance, 03/30/18 11:24:22 EDT Start Date: 03/30/18 Status: Ordered benztropine 1 mg oral tablet 1 mg, 1, tablet, By Mouth, 2 times a day, # 60 tablet, Refills 0, Maintenance, 04/25/19 13:38:27 EDT Start Date: 04/25/19 Status: Ordered cariprazine 3 mg oral capsule 1 capsule = 3 mg, By Mouth, Daily, 0 Refills, Maintenance, 04/25/19 13:38:04 EDT Start Date: 04/25/19 Status: Ordered donepezil 5 mg oral tablet 5 mg, 1, tablet, By Mouth, Daily at bedtime, # 30 tablet, Refills 0, Maintenance, 04/25/19 13:36:34EDT Start Date: 04/25/19 Status: Ordered fluvoxaMINE 100 mg oral capsule, extended release 1 capsule = 100 mg, By Mouth, Daily at bedtime, # 30 capsule, 0 Refills, Maintenance, 07/02/18 12:07:26 EDT, CR Capsule Start Date: 07/02/18 Status: Ordered fluvoxaMINE 25 mg oral tablet 2 tablet = 50 mg, By Mouth, Daily in AM, # 30 tablet, 0 Refills, Maintenance, 04/25/19 13:36:50 EDT, Tablet Start Date: 04/25/19 Status: Ordered ibuprofen 800 mg oral tablet 800 mg, By Mouth, Every 8 hours, PRN, Refills 0, Maintenance, Pain , Mild, 05/11/19 10:22:55 EDT Start Date: 05/11/19 Status: Ordered Insulin Lispro 2-10 units, Subcutaneous Injection, Every 6 hours, 0 Refills, Maintenance, 05/11/19 10:22:40 EDT, Injection Start Date: 05/11/19 Status: Ordered levothyroxine 0.1 mg oral tablet 1 tablet = 100 mcg, By Mouth, Daily, # 30 tablet, 0 Refills, Maintenance, 04/25/19 13:44:14 EDT, Tablet Start Date: 04/25/19 Status: Ordered levothyroxine 75 mcg (0.075 mg) oral tablet 1 tablet = 75 mcg, By Mouth, Daily, Have labs rechecked in 6 weeks to review medication dosage change., # 90 tablet, 0 Refills, Maintenance, 07/05/18 9:27:28 EDT, Tablet Start Date: 07/05/18 Stop Date: 10/03/18 Status: Ordered lithium 150 mg oral capsule 2 capsule = 300 mg, By Mouth, Daily at bedtime, 0 Refills, Maintenance, 04/25/19 13:42:29 EDT, Capsule Start Date: 04/25/19 Status: Ordered lithium 450 mg oral tablet, extended release 2 tablet = 900 mg, By Mouth, Daily in AM, # 60 tablet, 0 Refills, Maintenance, 04/25/19 13:42:44 EDT, ER Tablet Start Date: 04/25/19 Status: Ordered LORazepam 0.5 mg oral tablet 1 tablet = 0.5 mg, By Mouth, 3 times a day, PRN for anxiety, 0 Refills, Maintenance, 11/03/17 14:44:53, Tablet Start Date: 11/03/17 Status: Ordered LORazepam 1 mg oral tablet 1 tablet = 1 mg, By Mouth, 4 times a day, not sure if this is PRN vs. scheduled order for her, 0 Refills, Maintenance, 04/25/19 13:37:16 EDT, Tablet Start Date: 04/25/19 Status: Ordered olanzapine 10 mg oral tablet 10 mg, 1, tablet, By Mouth, 2 times a day, # 30 tablet, Refills 0, Maintenance, 04/25/19 13:36:14 EDT Start Date: 04/25/19 Status: Ordered olanzapine 20 mg oral tablet 1 tablet = 20 mg, By Mouth, Daily, # 30 tablet, 0 Refills, Maintenance, 07/02/18 12:01:52 EDT, Tablet Start Date: 07/02/18 Status: Ordered omeprazole 40 mg oral enteric coated capsule 1 capsule = 40 mg, By Mouth, Daily, # 30 capsule, 0 Refills, Maintenance, 07/02/18 12:00:46 EDT, ECCapsule Start Date: 07/02/18 Status: Ordered ondansetron 4 mg oral tablet 1 tablet = 4 mg, By Mouth, Every 8 hours, PRN Nausea & Vomiting, # 90 tablet, 0 Refills, Maintenance, 07/02/18 12:03:48 EDT, Tablet Start Date: 07/02/18 Stop Date: 08/01/18 Status: Ordered Pepcid AC Maximum Strength 20 mg oral tablet 20 mg, By Mouth, 2 times a day, Refills 0, Maintenance, 05/11/19 10:22:21 EDT Start Date: 05/11/19 Status: Ordered Rexulti 2 mg oral tablet 1 tablet = 2 mg, By Mouth, Daily, # 30 tablet, 0 Refills, Maintenance, 07/02/18 12:03:16 EDT, Tablet Start Date: 07/02/18 Stop Date: 08/01/18 Status: Ordered simvastatin 40 mg oral tablet 40 mg, 1, tablet, By Mouth, Daily at bedtime, # 90 tablet, Refills 2, Tot. Refills 2, Maintenance, 07/28/18 12:41:19 EDT, Route to Pharmacy Electronically, [id number], [facility] Start Date: 07/28/18 Stop Date: 04/24/19 Status: Ordered Tylenol 325 mg oral tablet 650 mg, By Mouth, Every 4 hours, Refills 0, Maintenance, 05/11/19 10:23:09 EDT Start Date: 05/11/19 Status: Ordered Vitamin D3 2000 intl units oral tablet 1 tablet = 2,000 International_Units, By Mouth, Daily, 0 Refills, Maintenance, 11/03/17 14:44:38 Start Date: 11/03/17 Status: Ordered Problem List Condition Effective Dates Status Health Status Inform ant Bipolar 2 disorder, major de pressive episode(Confirmed) Active GERD (gastroesophageal reflu x disease)(Confirmed) Active Hyperlipidemia(Confirmed) Active Hypothyroidism(Confirmed) Active IBS (irritable bowel syndrome)(Confirmed) Active Social History Social History Type Response Smoking Status Former smoker, quit more than 30 days ago entered on: 05/31/19 Sex
--- OUTSIDE RECORDS SUMMARY | 2024-03-16 06:02 | XMS_ITS | Continuity of Care Document ---
Author Organization [facility] Address [address] [place] [id number]- Care Team Providers Care Histology Aide Name Role Phone Carlyle GAN, Bashir Laws Primary Care Physic shadi Encounter [facility] Date(s): 02/28/21 - 03/30/21 [facility] [address] [place], [place] [address] Attending Physician: Norberto Martínez Admitting Physician: AdmNorberto keys Referring Physician: Admtr ArAlicia Allergies, Adverse Reactions, Alerts Substance Reaction Severity [...] 07/28/18 12:41:19 EDT, Route to Pharmacy Electronically, [id number], [id number] Start Date: 07/28/18 Stop [...]
--- OUTSIDE RECORDS SUMMARY | 2024-03-16 06:02 | XMS_ITS | Continuity of Care Document ---
Author Organization [facility] Address [address] [place] [id number]- Care Team Providers Care Ekg/Ecg Technician Name Role Phone Carlyle GAN, Bashir Laws Primary Care Physic shadi Encounter [facility] [place] Date(s): 02/28/21 - 03/07/21 [facility] [address] [place], [place] [address] Attending Physician: Octavio Breen MD Admitting Physician: Octavio Breen MD Referring Physician: Bashir Tadeo MD Allergies, Adverse Reactions, Alerts Substance Reaction Severity [...] 07/28/18 12:41:19 EDT, Route to Pharmacy Electronically, [id number], [id number] Start Date: 07/28/18 Stop [...]
--- OUTSIDE RECORDS SUMMARY | 2024-03-16 06:02 | XMS_ITS | Continuity of Care Document ---
Author Organization [facility] ter Address [address] [place] [address]- Care Team Providers Care Automobile Travel Club Counselor Name Role Phone Carlyle GAN, Bashir Laws Primary Care Physic shadi Encounter [facility] Date(s): 02/13/23 - 03/25/[address] [address] Attending Physician: Elvi Sauceda MD Admitting Physician: Elvi Sauceda MD Referring Physician: Elvi Sauceda MD Allergies, Adverse Reactions, Alerts Substance Reaction Severity Status sulfADIAZINE Active sulfa drugs Active Immunizations Given and Recorded Vaccine Date Status Refusal Reason influenza virus vaccine, inactivated 10/01/18 Tim rded influenza virus vaccine, inactivated 1 08/18/17 Gi cris tetanus/diphtheria/pertussis, acel(Tdap) 03/17/17 Given 1Admin Note: [facility] Aspirin Tablet 325 mg, By Mouth, 2 times a day, Refills 0, Maintenance, 07/11/22 10:30:00 EDT, Partial fill upon patient request if the prescription is for a schedule II opioid drug. Start Date: 07/11/22 Status: Ordered atorvastatin 20 mg oral tablet 1 tablet = 20 mg, By Mouth, Daily, # 30 tablet, 0 Refills, Maintenance, Tablet Start Date: 04/25/19 Status: Ordered cariprazine 3 mg oral capsule 2 capsule = 6 mg, By Mouth, Daily, 0 Refills, Maintenance, 04/25/19 13:38:04 EDT Start Date: 04/25/19 Status: Ordered Colace Capsule 100 mg, 1, capsule, By Mouth, 2 times a day, Refills 0, Maintenance, 07/11/22 10:34:00 EDT, Partialfill upon patient request if the prescription is for a schedule II opioid drug. Start Date: 07/11/22 Status: Ordered Diclofenac = 50 mg, By Mouth, 2 times a day, 0 Refills, Maintenance, 04/08/22 13:12:00 EDT, Partial fill upon patient request if the prescription is for a schedule II opioid drug. Start Date: 04/08/22 Status: Ordered donepezil 5 mg oral tablet 10 mg, 2, tablet, By Mouth, Daily at bedtime, # 30 tablet, Refills 0, Maintenance, 04/25/19 13:36:34 EDT Start Date: 04/25/19 Status: Ordered fluvoxaMINE 25 mg oral tablet 1 tablet = 25 mg, By Mouth, 3 times a day, # 30 tablet, 0 Refills, Maintenance, 06/19/22 10:01:00 EDT, Tablet, Partial fill upon patient request if the prescription is for a schedule II opioid drug. Start Date: 06/19/22 Status: Ordered Gabapentin = 100 mg, By Mouth, 3 times a day, 0 Refills, Maintenance, 04/08/22 13:12:00 EDT, Partial fill uponpatient request if the prescription is for a schedule II opioid drug. Start Date: 04/08/22 Status: Ordered levothyroxine 0.112 mg oral tablet 1 tablet = 112 mcg, By Mouth, Daily, # 30 tablet, 0 Refills, Maintenance, 06/19/22 10:04:00 EDT, Tablet, Partial fill upon patient request if the prescription is for a schedule II opioid drug. Start Date: 06/19/22 Status: Ordered lithium 150 mg oral capsule 1 capsule = 150 mg, By Mouth, Daily in AM, 0 Refills, Maintenance, 04/25/19 13:42:29 EDT, Capsule Start Date: 04/25/19 Status: Ordered lithium 450 mg oral tablet, extended release 2 tablet = 900 mg, By Mouth, Daily at bedtime, # 60 tablet, 0 Refills, Maintenance, 04/25/19 13:42:44 EDT, ER Tablet Start Date: 04/25/19 Status: Ordered LORazepam 1 mg oral tablet 1 tablet = 1 mg, By Mouth, Daily in AM, 0 Refills, Maintenance, 07/11/22 10:30:00 EDT, Tablet, Partial fill upon patient request if the prescription is for a schedule II opioid drug. Start Date: 07/11/22 Status: Ordered LORazepam 1 mg oral tablet 1 tablet = 1 mg, By Mouth, Daily at bedtime, 0 Refills, Maintenance, 07/11/22 10:30:00 EDT, Tablet,Partial fill upon patient request if the prescription is for a schedule II opioid drug. Start Date: 07/11/22 Status: Ordered LORazepam 2 mg oral tablet 1 tablet = 2 mg, By Mouth, Daily, 0 Refills, Maintenance, 07/11/22 10:30:00 EDT, Tablet, Partial fill upon patient request if the prescription is for a schedule II opioid drug. Start Date: 07/11/22 Status: Ordered MiraLax Powder 1 pack/packet = 17 Gm, By Mouth, Daily, PRN Constipation, 0 Refills, Maintenance, 07/11/22 10:34:00EDT, Powder, Partial fill upon patient request if the prescription is for a schedule II opioid drug. Start Date: 07/11/22 Status: Ordered olanzapine 10 mg oral tablet 20 mg, 2, tablet, By Mouth, 2 times a day, Refills 0, Maintenance, 07/11/22 10:30:00 EDT, Partial fill upon patient request if the prescription is for a schedule II opioid drug. Start Date: 07/11/22 Status: Ordered omeprazole 40 mg oral enteric coated capsule 1 capsule = 40 mg, By Mouth, Daily, # 30 capsule, 0 Refills, Maintenance, 07/02/18 12:00:46 EDT, ECCapsule Start Date: 07/02/18 Status: Ordered ondansetron 4 mg oral tablet 1 tablet = 4 mg, By Mouth, 2 times a day, # 60 tablet, 0 Refills, Maintenance, 07/02/18 12:03:48 EDT, Tablet Start Date: 07/02/18 Stop Date: 08/01/18 Status: Ordered pantoprazole 40 mg oral delayed release tablet = 40 mg, By Mouth, Daily in AM, 0 Refills, Maintenance, 07/11/22 10:34:00 EDT, EC Tablet Start Date: 07/11/22 Status: Ordered senna 187 mg oral tablet 1 tablet = 8.6 mg, By Mouth, Daily at bedtime, PRN as needed for constipation, 0 Refills, Maintenance, 07/11/22 10:34:00 EDT, Tablet, Partial fill upon patient request if the prescription is for a schedule II opioid drug. Start Date: 07/11/22 Status: Ordered Tylenol 325 mg oral tablet 650 mg, By Mouth, Every 4 hours, Refills 0, Maintenance, 05/11/19 10:23:09 EDT Start Date: 05/11/19 Status: Ordered Vitamin D3 2000 intl units oral tablet 1 tablet = 2,000 International_Units, By Mouth, Daily, 0 Refills, Maintenance, 11/03/17 14:44:38 Start Date: 11/03/17 Status: Ordered Problem List Condition Confirmation Course Effective Dates Status H ealth Status Informant Bipolar 2 disorder, major depressive episode Confirmed Active GERD (gastroesophageal reflux disease) Confirmed Active Hyperlipidemia Confirmed Active Hypothyroidism Confirmed Active IBS (irritable bowel syndrome) Confirmed Active Major depression Confirmed Active Obese class I Confirmed Active Traumatic osteoarthritis Confirmed Active Social History Social History Type Response Smoking Status Former smoker, quit more than 30 days ago entered on: 05/31/19 Sex Patient Care team information Care Team Personnel Name: Audi Romero RN Position: [facility] RN Member Role: Primary Care Nurse Name: Maria M Ochoa RN Position: [facility] RN Member Role: Primary Care Nurse Name: Tracie Beckham RN Position: S RN Member Role: Primary Care Nurse Name: Beatrice De La Paz RN Position: [facility] AMB Nurse Member Role: Primary Care Nurse Name: Carlyle GAN, Bashir Laws Position: Reference Physician Member Role: PCP Address: Address: [address] [place] [address]- Name: Elvi Cerrato RN Position: [facility] RN Member Role: Primary Care Nurse Care Team Related Persons Name: RAJAN CHRISTENSEN Address: home [address] [place] [address] Name: LORENZO DUFF Address: home [address] [place] [address]
--- OUTSIDE RECORDS SUMMARY | 2024-03-16 06:02 | XMS_ITS | Continuity of Care Document ---
Author Organization [facility] ter Address [address] [place] [address]- Care Team Providers Care Pediatric Acute Care Unit Nurse Name Role Phone Carlyle GAN, Bashir Laws Primary Care Physic shadi Encounter [facility] Date(s): 12/08/21 - 01/23/[address] [address] Attending Physician: Octavio Breen MD Admitting Physician: Octavio Breen MD Referring Physician: Octavio Breen MD Allergies, Adverse Reactions, Alerts Substance Reaction [...] 07/28/18 12:41:19 EDT, Route to Pharmacy Electronically, [id number], [id number] Start Date: 07/28/18 Stop [...]
--- OUTSIDE RECORDS SUMMARY | 2024-03-16 06:02 | XMS_ITS | Continuity of Care Document ---
Author Organization [facility] Address [address] [place] [address]- Care Team Providers Care Client Program Manager Name Role Phone Carlyle GAN, Bashir Laws Primary Care Physic shadi Encounter [facility] Date(s): 12/10/21 - 02/01/22 [facility] [address] [place] [address]- Attending Physician: Octavio Breen MD Admitting Physician: [...] 07/28/18 12:41:19 EDT, Route to Pharmacy Electronically, [id number], [facility] Start Date: 07/28/18 Stop [...]
--- OUTSIDE RECORDS SUMMARY | 2024-03-16 06:02 | XMS_ITS | Continuity of Care Document ---
Author Organization [facility] Address [address] [place] [address]- Care Team Providers Care Seo Consultant Name Role Phone Carlyle GAN, Bashir Laws Primary Care Physic shadi Encounter [facility] Date(s): 12/25/20 - 01/01/21 [facility] [address] [place], [place] [address] Attending Physician: Octavio Breen [...] 07/28/18 12:41:19 EDT, Route to Pharmacy Electronically, [id number], [facility] Start Date: 07/28/18 Stop [...]
--- OUTSIDE RECORDS SUMMARY | 2024-03-16 06:02 | XMS_ITS | Continuity of Care Document ---
Author Organization [facility] Address [address] [place] [address]- Care Team Providers Care Rn Ambulatory Name Role Phone Carlyle GAN, Bashir Laws Primary Care Physic shadi Encounter [facility] Date(s): 12/25/20 - 01/24/21 [facility] [address] [place], [place] [address] Attending Physician: Norberto Martínez Admitting Physician: AdmNorberto [...] 07/28/18 12:41:19 EDT, Route to Pharmacy Electronically, [id number], [id number] Start Date: 07/28/18 Stop [...]
--- OUTSIDE RECORDS SUMMARY | 2024-03-16 06:03 | XMS_ITS | Continuity of Care Document ---
Author Organization [facility] Address [address] [place] [address]- Care Team Providers Care Town Manager Name Role Phone Carlyle GAN, Bashir Laws Primary Care Physic shadi Encounter 07/12/22 - 07/18/22 [facility] [address] [place] [address]- Discharge Disposition: GOALS MET Allergies, Adverse Reactions, Alerts Substance Reaction Severity [...] 2 times a day, 0 Refills, Maintenance, 05/17/22 13:12:00 EDT, Partial fill upon patient request [...] Hypothyroidism(Confirmed) Active IBS (irritable bowel syndrome)(Confirmed) Active Major depression(Confirmed) Active Obese class I(Confirmed) Active Traumatic osteoarthritis(Confirmed) Active Social History Social History Type Response Smoking Status Former smoker, quit more than 30 days ago entered on: 05/31/19 Sex Care Team Personnel Name: Carlyle GAN, Bashir Laws Address: [address] [place], [place] [address]
--- OUTSIDE RECORDS SUMMARY | 2024-03-16 06:03 | XMS_ITS | Continuity of Care Document ---
Author Organization [facility] ter Address [address] [place] [address]- Care Team Providers Care Water Quality Control Engineer Name Role Phone Carlyle GAN, Bashir Laws Primary Care Physic sahdi Encounter [facility] Date(s): 07/11/22 - 07/11/[address] [address] Discharge Disposition: A-D/C Home Attending Physician: Malik Jensen MD Admitting Physician: Malik Jensen MD Referring Physician: Malik Jensen MD Allergies, Adverse Reactions, Alerts Substance Reaction [...] opioid drug. Start Date: 04/08/22 Status: Ordered gabapentin 100 mg oral capsule 100 mg, Capsule, By Mouth, Once, Routine, 07/11/22 14:00:00 EDT, Stop date 07/11/22 14:00:00 EDT Start Date: 07/11/22 Stop Date: 07/11/22 Status: Completed levothyroxine 0.112 mg oral tablet 1 tablet [...] Date: 07/02/18 Stop Date: 08/01/18 Status: Ordered oxyCODONE 10 mg oral tablet See Instructions, PRN Pain , Severe, 0.5-1 tablet By Mouth Every 4 hours, # 42 tablet, 0 Refills, Acute 07/18/22 10:37:00 EDT, 07/11/22 10:37:00 EDT, Tablet, [facility], Partial fill upon patient request if the prescription is for a sche... Start Date: 07/11/22 Stop Date: 07/18/22 Status: Ordered pantoprazole 40 mg oral delayed [...] Obese class I(Confirmed) Active Traumatic osteoarthritis(Confirmed) Active Results Radiology Reports * Exam Date Time Procedure Performing Provider Status 07/11/22 1:20 PM Pelvis 1 or 2 Views [place] [facility] (Verified) Notes: (Pelvis 1 or 2 Views) Reason For Exam: Postop Prosthesis;Postop Prosthesis RESULT: Pelvis 1 or 2 Views Pelvis 1 or 2 Views INDICATION/CLINICAL QUESTION: Reason: Postop Prosthesis; Clinical Question(s): Status of Hip Prosthesis; Special Instructions: RIGHT Hip. / Status of Hip Prosthesis COMPARISON: Same day at 1017 hours. TECHNIQUE: AP pelvis. 1252 hours FINDINGS: Satisfactory positioning of the acetabular and femoral components of a right total hip replacement... No recent fracture. Prior ORIF of right pelvic fracture. IMPRESSION: 1. Satisfactory postoperative appearance right total hip replacement.. WSN: [id number] Ordering Physician: Sruthi Tsai Dictated By: Luis Carlos Manzo MD Dictated Date/Time: 07/11/22 1:25 pm Reviewed By: Luis Carlos Manzo MD Signed By: Luis Carlos Manzo MD Signed Date/Time: 07/11/22 1:25 pm Transcribed By: MICHAEL Transcribed Date/Time: 07/11/22 1:24 pm * Exam Date Time Procedure Performing Provider Status 07/11/22 10:23 AM Pelvis 1 or 2 Views James Forte; Abe (Verified) Notes: (Pelvis 1 or 2 Views) Reason For Exam: osteoarthritis, right total hip replacement RESULT: Pelvis 1 or 2 Views Pelvis 1 or 2 Views performed supine at 10:17 AM Reason: osteoarthritis, right total hip replacement COMPARISON: Intraoperative notable image of the pelvis at 9:31 AM today. FINDINGS: The patient is status post right total hip arthroplasty and ORIF of the right acetabulum with malleable plate and screw constructs. No acute displaced fracture is seen. Healed deformity of the left superior and inferior pubic rami. Subcutaneous gas adjacent to the right hip is compatible with the perioperative state. IMPRESSION: Status post right total hip arthroplasty with no acute fracture. WSN: [id number] Ordering Physician: Malik Jensen Dictated By: Catie Escobar MD Dictated Date/Time: 07/11/22 11:51 a Reviewed By: Catie Escobar MD Signed By: Catie Escobar MD Signed Date/Time: 07/11/22 11:51 am Transcribed By: MICHAEL Transcribed Date/Time: 07/11/22 11:50 am * Exam Date Time Procedure Performing Provider Status 07/11/22 9:36 AM Pelvis 1 or 2 Views Maria C Forte (Verified) Notes: (Pelvis 1 or 2 Views) Reason For Exam: osteoarthritis, right total hip replacement RESULT: Pelvis 1 or 2 Views Pelvis 1 or 2 Views intraoperative portable image of the pelvis at 9:31 AM Reason: osteoarthritis, right total hip replacement COMPARISON: None. FINDINGS: There is a right total hip arthroplasty in progress with acetabular component and femoral sizing rasp. The patient is status post ORIF of the right acetabulum with malleable plate and screw constructs. Apparent healed deformity of the left superior and inferior pubic rami. No acute displaced fracture seen. Surgical retractors, sponge marker and subcutaneous gas about the right hip is compatible with the intraoperative state. IMPRESSION: Right total hip arthroplasty in progress with no acute fracture seen. WSN: [id number] Ordering Physician: Malik Jensen Dictated By: Catie Escobar MD Dictated Date/Time: 07/11/22 11:47 a Reviewed By: Catie Escobar MD Signed By: Catie Escobar MD Signed Date/Time: 07/11/22 11:47 am Transcribed By: MICHAEL Transcribed Date/Time: 07/11/22 11:45 am Vital Signs Most recent to oldest [Reference Range]: 1 2 3 4 Height 160 cm (07/11/22 7:03 AM) 160 cm (07/11/22 5:12 AM) Weight 77.2 kg (07/11/22 7:03 AM) 77.2 kg (07/11/22 5:12 AM) Oxygen Saturation [94-100 %] 97 % (07/11/22 2:00 PM) 98 % (07/11/22 1:55 PM) 97 % (07/11/22 1:50 PM) Pulse Rate [55-90 bpm] 70 bpm (07/11/22 7:03 AM) 90 bpm (07/11/22 5:12 AM) Body Mass Index [18.5-24.99] 30.16 *>HHI* (07/11/22 7:03 AM) 30.16 *>HHI* (07/11/22 5:12 AM) Systolic Blood Pressure [90-138 mm Hg] 104 mm Hg (07/11/22 1:55 PM) 104 mm Hg (07/11/22 1:55 PM) 117 mm Hg (07/11/22 1:50 PM) 117 mm Hg (07/11/22 1:50 PM) Diastolic Blood Pressure [55-84 mm Hg] 65 mm Hg (07/11/22 1:55 PM) 65 mm Hg (07/11/22 1:55 PM) 66 mm Hg (07/11/22 1:50 PM) 66 mm Hg (07/11/22 1:50 PM) Respiratory Rate [16-30 br/min] 18 br/min (07/11/22 2:00 PM) 18 br/min (07/11/22 1:55 PM) 17 br/min (07/11/22 1:50 PM) Temperature [96.8-100.4 DegF] 98.9 DegF (07/11/22 2:00 PM) 100.2 DegF (07/11/22 12:55 PM) 98.7 DegF (07/11/22 12:45 PM) Liters per Minute 6 L/min (07/11/22 10:30 AM) Mode of Delivery (Oxygen) Room air (07/11/22 12:55 PM) Room air (07/11/22 12:45 PM) Room air (07/11/22 12:15 PM) Blood pressure sites Arm, left (07/11/22 1:55 PM) Arm, left (07/11/22 1:55 PM) Arm, left (07/11/22 1:50 PM) Arm, left (07/11/22 1:50 PM) Temperature Route Temporal (07/11/22 2:00 PM) Temporal (07/11/22 12:55 PM) Temporal (07/11/22 12:45 PM) Dry Weight 77.2 kg (07/11/22 5:12 AM) Social History Social History Type Response Smoking Status Former smoker, quit more than 30 days ago entered on: 05/31/19 Sex
--- OUTSIDE RECORDS SUMMARY | 2024-03-16 06:03 | XMS_ITS | Continuity of Care Document ---
Author Organization [facility] Address [address] [place] [address]- Care Team Providers Care Hand Cloth Folder Name Role Phone Carlyle GAN, Bashir Laws Primary Care Physic shadi Encounter [facility] Date(s): 11/26/20 - 12/26/20 [facility] [address] [place], [place] [address] Attending Physician: AdmNorberto keys Admitting Physician: AdmtrNorberto Referring Physician: Admtr, Ar8 Allergies, Adverse Reactions, Alerts Substance Reaction Severity [...] 07/28/18 12:41:19 EDT, Route to Pharmacy Electronically, [id number], [facility] Start Date: 07/28/18 Stop [...]
--- OUTSIDE RECORDS SUMMARY | 2024-03-16 06:03 | XMS_ITS | Continuity of Care Document ---
Author Organization [facility] Address [address] [place] [address]- Care Team Providers Care Agricultural Purchasing Agent Name Role Phone Carlyle GAN, Bashir Laws Primary Care Physic shadi Encounter [facility] Date(s): 01/02/22 - 01/09/22 [facility] [address] [place], [place] [address] Attending Physician: Octavio Breen MD Admitting [...] 07/28/18 12:41:19 EDT, Route to Pharmacy Electronically, [id number], [facility] Start Date: 07/28/18 Stop [...]
--- OUTSIDE RECORDS SUMMARY | 2024-03-16 06:03 | XMS_ITS | Continuity of Care Document ---
Author Organization [facility] Address [address] [place] [address]- Care Team Providers Care Meteorological Engineer Name Role Phone Carlyle GAN, Bashir Laws Primary Care Physic shadi En[place] [facility] Date(s): 12/22/22 - 01/21/23 [facility] [address] [place] [address]- Allergies, Adverse Reactions, Alerts Substance Reaction Severity [...] Team Personnel Name: Audi Romero RN Position: S RN Member Role: Primary Care Nurse Name: Maria M Ochoa RN Position: S RN Member Role: Primary Care Nurse Name: Tracie Beckham RN Position: S RN Member Role: Primary Care Nurse Name: Beatrice De La Paz RN Position: [facility] AMB Nurse Member Role: Primary Care Nurse Name: Carlyle GAN, Bashir Laws Position: Reference Physician Member Role: PCP Address: Address: [address] [place] [address]- Name: Elvi Cerrato RN Position: S RN Member Role: Primary Care Nurse Care Team Related Persons Name: RAJAN RICHTER Address: home [address] [place] [address] Name: LORENZO DUFF Address: home [address] [place] [place] [address]
--- OUTSIDE RECORDS SUMMARY | 2024-03-16 06:03 | XMS_ITS | Continuity of Care Document ---
Author Organization [facility] Address [address] [place] [address]- Care Team Providers Care Subacute Nurse Name Role Phone Carlyle GAN, Bashir Laws Primary Care Physic shadi Encounter [facility] Date(s): 06/19/22 - 07/19/22 [facility] [address] [place] [address]- Attending Physician: Norberto Martínez Admitting Physician: AdmtrNorberto Referring Physician: AdmtrNorberto Allergies, Adverse Reactions, Alerts [...] Name: Carlyle GAN, Bashir Laws Address: [address] [place], [place] [address]
--- OUTSIDE RECORDS SUMMARY | 2024-03-16 06:03 | XMS_ITS | Continuity of Care Document ---
Author Organization [facility] ter Address [address] [place] [address]- Care Team Providers Care Tavern Operator Name Role Phone Carlyle GAN, Bashir Laws Primary Care Physic shadi Encounter [facility] Date(s): 07/11/22 - 08/10/[address] [address]- Attending Physician: Not on Staff, Attending MD Admitting Physician: Not on Staff, Admitting MD Referring Physician: Not on Staff, Referring MD Allergies, Adverse Reactions, Alerts Substance Reaction [...] Name: Carlyle GAN, Bashir Laws Address: [address] [place], [place] [address]
--- OUTSIDE RECORDS SUMMARY | 2024-03-16 06:03 | XMS_ITS | Continuity of Care Document ---
Author Organization [facility] Address [address] [place] [address]- Care Team Providers Care Cracking Machine Operator Name Role Phone Carlyle GAN, Bashir Laws Primary Care Physic shadi [place] [facility] [place]s): 08/29/20 - 12/27/20 [facility] [address] [place], [place] [address] Attending Physician: Octavio Breen MD Admitting [...] 07/28/18 12:41:19 EDT, Route to Pharmacy Electronically, [id number], [facility] Start Date: 07/28/18 Stop [...]
--- OUTSIDE RECORDS SUMMARY | 2024-03-16 06:03 | XMS_ITS | Continuity of Care Document ---
Author Organization [facility] ter Address [address] [place] [address]- Care Team Providers Care Supervisor Estimator And Drafter Name Role Phone Carlyle GAN, Bashir Laws Primary Care Physic shadi Encounter [facility] Date(s): 06/25/22 - 07/25/[address] [address]- Attending Physician: Norberto Martínez Admitting Physician: AdmtrNorberto [...] Name: Carlyle GAN, Bashir Laws Address: [address] [place], [place] [address]
--- OUTSIDE RECORDS SUMMARY | 2024-03-16 06:03 | XMS_ITS | Continuity of Care Document ---
Author Organization [facility] Address [address] [place] [address]- Care Team Providers Care Director Toxicology Name Role Phone Carlyle GAN, Bashir Laws Primary Care Physic shadi Encounter [facility] Date(s): 11/29/20 - 12/06/20 [facility] [address] [place] [address]- Attending Physician: Octaivo Breen MD Admitting Physician: Octavio Breen MD [...] 07/28/18 12:41:19 EDT, Route to Pharmacy Electronically, [id number], [facility] Start Date: 07/28/18 Stop [...]
--- OUTSIDE RECORDS SUMMARY | 2024-03-16 06:03 | XMS_ITS | Continuity of Care Document ---
Author Organization [facility] ter Address [address] [place] [id number]- Care Team Providers Care Noc Technician Name Role Phone Calryle GAN, Bashir Laws Primary Care Physic shadi Encounter [facility] Date(s): 03/18/22 - 05/11/[address] [id number] Attending Physician: Elvi Sauceda MD Allergies, Adverse Reactions, Alerts Substance Reaction Severity Status sulfADIAZINE Active sulfa drugs Active Immunizations Given and Recorded Vaccine Date Status Refusal Reason influenza virus vaccine, inactivated 10/01/18 Tim rded influenza virus vaccine, inactivated 1 08/18/17 Gi cris tetanus/diphtheria/pertussis, acel(Tdap) 03/17/17 Given 1Admin Note: [facility] Medications aspirin 325 mg oral delayed release tablet 325 mg, 1, tablet, By Mouth, Daily, # 30 tablet, Refills 0, Tot. Refills 0, Maintenance, 04/11/22 9:18:00 EDT, Route to Pharmacy Electronically, [facility], Partial fill upon patientrequest if the prescription is for a schedule II op... Start Date: 04/11/22 Stop Date: 05/11/22 Status: Ordered aspirin 81 mg oral tablet, chewable 81 [...] 13:38:04 EDT Start Date: 04/25/19 Status: Ordered Diclofenac = 50 mg, By [...] EDT, Tablet Start Date: 04/25/19 Status: Ordered Gabapentin = 100 mg, By Mouth, 3 times a day, 0 Refills, Maintenance, 04/08/22 13:12:00 EDT, Partial fill uponpatient request if the prescription is for a schedule II opioid drug. Start Date: 04/08/22 Status: Ordered ibuprofen 800 mg oral tablet [...] 07/28/18 12:41:19 EDT, Route to Pharmacy Electronically, [id number], [id number] Start Date: 07/28/18 [...]
[2024-03-16 06:27] VITALS: BP 134/67; PULSE 87; RESP 16; TEMP 36.4; O2SAT 95; BMI 29.0
--- NOTE | 2024-03-16 07:12 | MHC.SHP ---
Pre-Procedural Eval Section A - 24 Hr Update-Section A only Date of Service: 03/16/24 Section B - Complete if H&P > 30 days Chief Complaint: depression Details of Present Illness: recurrent dep with paranoia no new medical concerns History of Previous Operations: Relevant previous surgery/procedure and date(s) (ect) Allergies: Allergies Allergy/AdvReac Type Severity Reaction Status Date / Time Sulfa (Sulfonamide Allergy Mild UNKNOWN Verified 02/01/24 09:33 Antibiotics) Review of Systems Sugical H&P ROS: Negative: Cardiovascular and Respiratory and Yes, Specify: Neurological (working attn difficulty) Exam Surgical H&P Exam: Normal: Heart and Normal: Lungs Plan Diagnosis/Plan: Unchanged I have reviewed the history and physical and performed a pertinent physical examination on my patient. No changes have occurred unless specified. Time Spent With Patient Time: Total time managing care of this patient today ____ minutes.
--- NOTE | 2024-03-16 07:13 | HO.ECTPROC ---
ECT Procedure Note Diagnosis/Treatment Date of Service: 03/16/24 Diagnosis: Schizoaffective Disorder Previous ECT Date: 02/03/24 Treatment: Maintenance Interval Clinical Notes: Patient is feeling okay does have less depressive symptoms but some increase in paranoia she is taking olanzapine 10 mg 3 times a day plan to taper olanzapine increase clozapine 100 mg no significant side effects noted. Patient does worry about her mother who is getting older try and see if by lateral ultra brief can be helpful does have short-term memory disturbance Time: Total time managing care of this patient today _30___ minutes. ECT Settings Device: THYMATRON DGx Electrode Placement: Rt temporal/ Lt frontal Program/Pulse Width: 0.25 Energy Percent: 100 Seizure Duration By EEG (in seconds): 29 Medications Administration General Anesthetic: Etomidate (16) Muscle Relaxant: Succinylcholine (100) Ancillary Medications Analgesics: Torodol - Pre ECT Anti-emetics: Zofran - Pre ECT Airway Management Airway Management: Bag Mask Ventilation Treatment Recommendations No Changes Recommended: No change Notes: Follow-up treatment scheduled 3 weeks trying to find dosing that maintains mood and limits cognitive side effects Clozapine increased to 100 mg can change monitoring to q.2 weeks ANC has been stable no significant side effects noted Pt Tolerated Procedure w/o Issue: Yes
[2024-03-16 07:30] VITALS: BP 124/69; PULSE 66; RESP 16; TEMP 37.7; O2SAT 100
[2024-03-16 07:35] VITALS: BP 116/65; PULSE 67; RESP 16; O2SAT 100
[2024-03-16 07:40] VITALS: BP 109/66; PULSE 67; RESP 12; O2SAT 99
[2024-03-16 07:45] VITALS: BP 110/57; PULSE 73; RESP 13; O2SAT 98
[2024-03-16 08:00] VITALS: BP 101/52; PULSE 71; RESP 16; TEMP 36.6; O2SAT 96
--- NOTE | 2024-03-16 08:24 | P.CONAN_ITS ---
[facility] Active Problems Active Problems: All Active Problems retirement current use of clozapine (Acute) Preoperative clearance (Acute) Left foot pain (Acute) Tinea pedis (Acute) Left foot pain (Acute) Shortness of breath (Acute) Hyperkalemia (Acute) Diarrhea (Acute) Palpitation (Acute) Eczema (Acute) Postmenopausal bleeding (Acute) Amenorrhea (Acute) Well woman exam (Acute) Menopause (Acute) Complex ovarian cyst (Acute) Elevated blood pressure reading without diagnosis of hypertension (Acute) Hypercholesterolemia (Acute) Hypothyroid (Acute) Schizoaffective disorder, bipolar type (Chronic) Past Medical History Medical History retirement current use of clozapine Hypercholesterolemia Hypothyroid Liver laceration Hip fracture requiring operative repair Liver problem Schizoaffective disorder, bipolar type Depression Elevated cholesterol Functional capacity: independent ambulation Patient : No Family History Family History Mother No problems noted. Father No problems noted. Family history of problems with anesthesia: No Surgical History Surgical History History of surgery on lower extremity History of hip replacement History of tracheostomy History of hip surgery Status post aortic coarctation stent placement H/O rhinoplasty History of Problems with Anesthesia: No Social History Social History Housing: House Are you a primary pet caregiver to a significant other at home: No Do you presently have visiting nurse or other home services: No Alcohol intake: never Patient Tobacco Use Status: Former Tobacco user Tobacco use type: Cigarette e-Cigarette/Vaping Use: Never Used Second Hand Smoke Exposure: No Advance Directives: No Advance Directives Information Provided: Yes service: No Current occupational status: disabled Cognitive needs: No Hearing needs: No Vision needs: Yes (Glasses) Meds Allergies Allergy/AdvReac Type Severity Reaction Status Date / Time Sulfa (Sulfonamide Allergy Mild UNKNOWN Verified 02/01/24 09:33 Antibiotics) Home Medications ?Medication ?Instructions ?Recorded ?Confirmed ?Last Taken ?Type cholecalciferol (vitamin D3) 25 25 mcg PO DAILY 06/23/23 01/26/24 Unknown History mcg (1,000 unit) capsule Exam Height,Weight and Vital Signs: Height 5 ft 3 in Weight 74.389 kg Last Vital Signs Temp 97.9 F 03/16/24 08:00 Pulse 71 03/16/24 08:00 Resp 16 03/16/24 08:00 BP 101/52 L 03/16/24 08:00 Pulse Ox 96 03/16/24 08:00 O2 Del Method Room Air 03/16/24 08:00 O2 Flow Rate 2 03/16/24 07:45 Airway Mallampati Class: II TM Dist: >3cm Neck ROM: Full Heart: RRR Lungs: CTA Assessment and Plan Final Anesthetic Review Family History of Problems with Anesthesia: No History of Problems with Anesthesia: No ASA Class: III Final Preanesthetic Review: Meds/Allgs Chart Reviewed, Consent Obtained/Reviewed and Anes Risks/Benef Reviewed Patient Risk: Low Procedure Risk: Low Anesthetic Plan Anesthetic Plan: GA Disposition: Standard PACU
--- NOTE | 2024-03-16 08:35 | HO.POSTANES ---
Post Anesthesia Evaluation Post Anesthesia Evaluation Date of Service: 03/09/24 Vital Signs: Vital Signs Temp Pulse Resp BP Pulse Ox O2 Del Method O2 Flow Rate 03/16/24 08:00 97.9 F 71 16 101/52 L 96 Room Air 03/16/24 07:45 73 13 110/57 L 98 Nasal Cannula with ETCO2 2 03/16/24 07:40 67 12 109/66 99 Nasal Cannula with ETCO2 2 03/16/24 07:35 67 16 116/65 100 Nasal Cannula with ETCO2 2 03/16/24 07:30 99.9 F 66 16 124/69 100 Nasal Cannula with ETCO2 2 03/16/24 06:27 97.6 F 87 16 134/67 95 Room Air Anesthesia: General Mental Status: Awake Pain Control: Satisfactory Nausea/Vomiting: None Hydration: Adequate Anesthesia-Related Issues: No Anes. Related Issues
== END 2024-03-16 08:35 | disposition home or self-care (01) ==
PROVIDERS: PCP Internal Medicine; Visit Provider Psychiatry & Neurology Psychiatry
PROC: (CPT 90870; principal; 2024-03-16 08:00)
DX: F25.1 Schizoaffective disorder, depressive type (principal); F22 Delusional disorders; E78.00 Pure hypercholesterolemia, unspecified; E03.9 Hypothyroidism, unspecified; Z79.899 Other long term (current) drug therapy; Z88.2 Allergy status to sulfonamides; Z98.890 Other specified postprocedural states; Z87.891 Personal history of nicotine dependence
CPT/HCPCS: 90870; J0330; J1885; J2405; J2704

== ENCOUNTER → 2024-03-16 06:00 | Outpatient (BNV) | payer MEDICARE, MEDICAID, SELFPAY | PROVIDERS: PCP Internal Medicine; Visit Provider Psychiatry & Neurology Psychiatry | DX: F33.3 Major depressive disorder, recurrent, severe with psychotic symptoms (principal) | CPT/HCPCS: 90870 ==

== ENCOUNTER 2024-03-22 11:04 | Outpatient (AMB) | payer MEDICARE, MEDICAID, SELFPAY ==
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
== END 2024-03-22 11:33 | disposition home or self-care (01) ==
LOC: HO.HOP 11:04
PROVIDERS: PCP Internal Medicine; Visit Provider Psychiatry & Neurology Psychiatry
DX: F25.0 Schizoaffective disorder, bipolar type (principal); Z79.899 Other long term (current) drug therapy
CPT/HCPCS: 90833; 99213

== ENCOUNTER → 2024-03-22 11:04 | Outpatient (BNVA) | payer MEDICARE, MEDICAID, SELFPAY | PROVIDERS: PCP Internal Medicine; Visit Provider Psychiatry & Neurology Psychiatry | DX: F25.0 Schizoaffective disorder, bipolar type (principal); Z79.899 Other long term (current) drug therapy | CPT/HCPCS: 99212 ==

== ENCOUNTER 2024-03-25 14:59 | Outpatient (REF) | payer MEDICARE, MEDICAID, SELFPAY ==
[2024-03-25 15:11] LABS: MANUAL DIFF FLAG NO
[2024-03-25 15:19] LABS: Basophils Absolute Auto 0.1 X10*3/uL (0.0-0.2); Basophils Percent Auto 0.7 % (0-2); Eosinophils Absolute Auto 0.3 X10*3/uL (0.0-0.4); Eosinophils Percent Auto 3.6 % (0-4); Imm Gran Abs Auto 0.02 X10*3/uL (0.00-0.03); Imm Gran Pct Auto 0.2 % (0.0-0.4); Lymphocytes Absolute Auto 1.8 X10*3/uL (1.2-4.9); Lymphocytes Percent Auto 21.4 % (20-40); Mean Corpuscular HGB Conc 33.3 g/dl (31.0-35.0); Mean Corpuscular Hemoglobin 31.5 pg (27.0-33.0); Mean Corpuscular Volume 94.4 fL (80.0-98.0); Mean Platelet Volume 9.5 fL (9.4-12.3); Monocytes Absolute Auto 0.7 X10*3/uL (0.1-1.2); Neutrophils Absolute Auto 5.5 x10*3/uL (2.0-8.3); Neutrophils Percent Auto 66.1 % (45-73); Platelet Count 249 X10*3/uL (160-400); Red Blood Count 4.13 X10*6/uL (4.20-5.50); Red Cell Distribution Width 13.1 % (11.0-16.0); White Blood Count 8.4 X10*3/uL (4.8-10.8)
== END 2024-03-25 15:00 | disposition home or self-care (01) ==
LOC: HO.LAB 14:59
PROVIDERS: Visit Provider Psychiatry & Neurology Psychiatry
DX: Z79.899 Other long term (current) drug therapy (principal)
CPT/HCPCS: 36415; 85025

== ENCOUNTER 2024-04-01 13:59 | Outpatient (REF) | payer MEDICARE, MEDICAID, SELFPAY ==
[2024-04-01 14:11] LABS: MANUAL DIFF FLAG NO
[2024-04-01 14:53] LABS: Basophils Percent Auto 0.5 % (0-2); Eosinophils Absolute Auto 0.3 X10*3/uL (0.0-0.4); Hematocrit 38.1 % (37.0-47.0); Hemoglobin 12.5 g/dl (12.0-16.0); Imm Gran Abs Auto 0.03 X10*3/uL (0.00-0.03); Imm Gran Pct Auto 0.4 % (0.0-0.4); Lymphocytes Absolute Auto 1.7 X10*3/uL (1.2-4.9); Lymphocytes Percent Auto 19.5 % (20-40); Mean Corpuscular HGB Conc 32.8 g/dl (31.0-35.0); Mean Corpuscular Hemoglobin 30.7 pg (27.0-33.0); Mean Corpuscular Volume 93.6 fL (80.0-98.0); Monocytes Absolute Auto 0.7 X10*3/uL (0.1-1.2); Monocytes Percent Auto 7.8 % (2-11); Neutrophils Absolute Auto 5.8 x10*3/uL (2.0-8.3); Neutrophils Percent Auto 67.8 % (45-73); Platelet Count 228 X10*3/uL (160-400); Red Blood Count 4.07 X10*6/uL (4.20-5.50); Red Cell Distribution Width 13.1 % (11.0-16.0); White Blood Count 8.6 X10*3/uL (4.8-10.8)
== END 2024-04-01 14:00 | disposition home or self-care (01) ==
LOC: HO.LAB 13:59
PROVIDERS: PCP Internal Medicine; Visit Provider Psychiatry & Neurology Psychiatry
DX: Z79.899 Other long term (current) drug therapy (principal)
CPT/HCPCS: 36415; 85025

== ENCOUNTER 2024-04-08 09:51 | Outpatient (REF) | payer MEDICARE, MEDICAID, SELFPAY ==
[2024-04-08 10:21] LABS: MANUAL DIFF FLAG NO
[2024-04-08 11:02] LABS: Basophils Absolute Auto 0.1 X10*3/uL (0.0-0.2); Basophils Percent Auto 0.8 % (0-2); Eosinophils Absolute Auto 0.2 X10*3/uL (0.0-0.4); Hematocrit 39.8 % (37.0-47.0); Hemoglobin 12.9 g/dl (12.0-16.0); Imm Gran Abs Auto 0.03 X10*3/uL (0.00-0.03); Imm Gran Pct Auto 0.5 % (0.0-0.4); Lymphocytes Absolute Auto 1.4 X10*3/uL (1.2-4.9); Lymphocytes Percent Auto 21.3 % (20-40); Mean Corpuscular HGB Conc 32.4 g/dl (31.0-35.0); Mean Corpuscular Hemoglobin 30.7 pg (27.0-33.0); Mean Corpuscular Volume 94.8 fL (80.0-98.0); Mean Platelet Volume 10.1 fL (9.4-12.3); Monocytes Absolute Auto 0.5 X10*3/uL (0.1-1.2); Monocytes Percent Auto 7.1 % (2-11); Neutrophils Absolute Auto 4.5 x10*3/uL (2.0-8.3); Neutrophils Percent Auto 67.3 % (45-73); Platelet Count 225 X10*3/uL (160-400); Red Cell Distribution Width 13.2 % (11.0-16.0); White Blood Count 6.6 X10*3/uL (4.8-10.8)
== END 2024-04-08 09:52 | disposition home or self-care (01) ==
LOC: HO.LAB 09:51
PROVIDERS: Visit Provider Psychiatry & Neurology Psychiatry
DX: Z79.899 Other long term (current) drug therapy (principal)
CPT/HCPCS: 36415; 85025

== ENCOUNTER 2024-04-20 10:57 | Outpatient (REF) | payer MEDICARE, MEDICAID, SELFPAY ==
[2024-04-20 11:09] LABS: MANUAL DIFF FLAG NO
[2024-04-20 11:57] LABS: Basophils Absolute Auto 0.1 X10*3/uL (0.0-0.2); Basophils Percent Auto 0.7 % (0-2); Eosinophils Absolute Auto 0.2 X10*3/uL (0.0-0.4); Eosinophils Percent Auto 2.3 % (0-4); Hematocrit 38.8 % (37.0-47.0); Hemoglobin 12.7 g/dl (12.0-16.0); Imm Gran Abs Auto 0.02 X10*3/uL (0.00-0.03); Imm Gran Pct Auto 0.3 % (0.0-0.4); Lymphocytes Absolute Auto 1.4 X10*3/uL (1.2-4.9); Mean Corpuscular HGB Conc 32.7 g/dl (31.0-35.0); Mean Corpuscular Hemoglobin 30.8 pg (27.0-33.0); Mean Corpuscular Volume 93.9 fL (80.0-98.0); Mean Platelet Volume 10.1 fL (9.4-12.3); Monocytes Absolute Auto 0.7 X10*3/uL (0.1-1.2); Monocytes Percent Auto 8.9 % (2-11); Neutrophils Absolute Auto 5.4 x10*3/uL (2.0-8.3); Neutrophils Percent Auto 69.8 % (45-73); Platelet Count 240 X10*3/uL (160-400); Red Blood Count 4.13 X10*6/uL (4.20-5.50); Red Cell Distribution Width 13.1 % (11.0-16.0); White Blood Count 7.7 X10*3/uL (4.8-10.8)
== END 2024-04-20 10:58 | disposition home or self-care (01) ==
LOC: HO.LABR 10:57
PROVIDERS: PCP Internal Medicine; Visit Provider Psychiatry & Neurology Psychiatry
DX: Z79.899 Other long term (current) drug therapy (principal)
CPT/HCPCS: 36415; 85025

== ENCOUNTER 2024-04-22 10:58 | Outpatient (AMB) | payer MEDICARE, MEDICAID, SELFPAY ==
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
== END 2024-04-22 16:48 | disposition home or self-care (01) ==
LOC: HO.HOP 10:58
PROVIDERS: PCP Internal Medicine; Visit Provider Clinical Nurse Specialist Psychiatric/Mental Health
DX: F25.0 Schizoaffective disorder, bipolar type (principal); Z79.899 Other long term (current) drug therapy
CPT/HCPCS: 99214

== ENCOUNTER → 2024-04-22 10:58 | Outpatient (BNVA) | payer MEDICARE, MEDICAID, SELFPAY | PROVIDERS: PCP Internal Medicine; Visit Provider Clinical Nurse Specialist Psychiatric/Mental Health | DX: F25.0 Schizoaffective disorder, bipolar type (principal); Z79.899 Other long term (current) drug therapy | CPT/HCPCS: 99212 ==

== ENCOUNTER 2024-05-07 09:23 | Outpatient (REF) | payer MEDICARE, MEDICAID, SELFPAY ==
[2024-05-07 09:30] LABS: MANUAL DIFF FLAG NO
[2024-05-07 09:59] LABS: Basophils Absolute Auto 0.1 X10*3/uL (0.0-0.2); Basophils Percent Auto 0.6 % (0-2); Eosinophils Absolute Auto 0.2 X10*3/uL (0.0-0.4); Eosinophils Percent Auto 1.4 % (0-4); Hematocrit 40.4 % (37.0-47.0); Hemoglobin 13.4 g/dl (12.0-16.0); Imm Gran Abs Auto 0.04 X10*3/uL (0.00-0.03); Imm Gran Pct Auto 0.3 % (0.0-0.4); Lymphocytes Absolute Auto 1.4 X10*3/uL (1.2-4.9); Lymphocytes Percent Auto 11.9 % (20-40); Mean Corpuscular HGB Conc 33.2 g/dl (31.0-35.0); Mean Corpuscular Hemoglobin 30.9 pg (27.0-33.0); Mean Corpuscular Volume 93.3 fL (80.0-98.0); Mean Platelet Volume 10.3 fL (9.4-12.3); Monocytes Absolute Auto 0.7 X10*3/uL (0.1-1.2); Monocytes Percent Auto 6.1 % (2-11); Neutrophils Absolute Auto 9.4 x10*3/uL (2.0-8.3); Neutrophils Percent Auto 79.7 % (45-73); Platelet Count 231 X10*3/uL (160-400); Red Blood Count 4.33 X10*6/uL (4.20-5.50); Red Cell Distribution Width 12.7 % (11.0-16.0); White Blood Count 11.8 X10*3/uL (4.8-10.8)
== END 2024-05-07 09:24 | disposition home or self-care (01) ==
LOC: HO.LABR 09:23
PROVIDERS: PCP Internal Medicine; Visit Provider Psychiatry & Neurology Psychiatry
DX: Z79.899 Other long term (current) drug therapy (principal)
CPT/HCPCS: 36415; 85025

== ENCOUNTER 2024-05-10 10:59 | Outpatient (AMB) | payer MEDICARE, MEDICAID, SELFPAY ==
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
== END 2024-05-10 11:38 | disposition home or self-care (01) ==
LOC: HO.HOP 10:59
PROVIDERS: PCP Internal Medicine; Visit Provider Psychiatry & Neurology Psychiatry
DX: F25.0 Schizoaffective disorder, bipolar type (principal)
CPT/HCPCS: 90833; 99213

== ENCOUNTER → 2024-05-10 10:59 | Outpatient (BNVA) | payer MEDICARE, MEDICAID, SELFPAY | PROVIDERS: PCP Internal Medicine; Visit Provider Psychiatry & Neurology Psychiatry | DX: F25.0 Schizoaffective disorder, bipolar type (principal) | CPT/HCPCS: 99212 ==

== ENCOUNTER 2024-05-24 13:21 | Outpatient (REF) | payer MEDICARE, MEDICAID, SELFPAY ==
[2024-05-24 13:30] LABS: MANUAL DIFF FLAG NO
[2024-05-24 13:40] LABS: Basophils Absolute Auto 0.1 X10*3/uL (0.0-0.2); Basophils Percent Auto 0.7 % (0-2); Eosinophils Absolute Auto 0.3 X10*3/uL (0.0-0.4); Eosinophils Percent Auto 3.2 % (0-4); Hematocrit 37.1 % (37.0-47.0); Hemoglobin 12.3 g/dl (12.0-16.0); Imm Gran Abs Auto 0.02 X10*3/uL (0.00-0.03); Imm Gran Pct Auto 0.2 % (0.0-0.4); Lymphocytes Absolute Auto 1.3 X10*3/uL (1.2-4.9); Lymphocytes Percent Auto 14.3 % (20-40); Mean Corpuscular HGB Conc 33.2 g/dl (31.0-35.0); Mean Corpuscular Volume 93.5 fL (80.0-98.0); Mean Platelet Volume 9.7 fL (9.4-12.3); Monocytes Absolute Auto 0.6 X10*3/uL (0.1-1.2); Monocytes Percent Auto 6.5 % (2-11); Neutrophils Absolute Auto 6.7 x10*3/uL (2.0-8.3); Neutrophils Percent Auto 75.1 % (45-73); Platelet Count 211 X10*3/uL (160-400); Red Blood Count 3.97 X10*6/uL (4.20-5.50)
== END 2024-05-24 13:22 | disposition home or self-care (01) ==
LOC: HO.LAB 13:21
PROVIDERS: PCP Psychiatry & Neurology Psychiatry; Visit Provider Psychiatry & Neurology Psychiatry
DX: Z79.899 Other long term (current) drug therapy (principal)
CPT/HCPCS: 36415; 85025

== ENCOUNTER 2024-05-25 13:26 | Outpatient (AMB) | payer MEDICARE, MEDICAID, SELFPAY ==
--- NOTE | 2024-05-25 13:30 | AM.OFFVISMDC ---
Intake Vital Signs 05/25/24 13:34 Height 5 ft 3 in Weight 185 lb 2 oz BMI 32.8 BP 122/66 Blood Pressure Location Lt brachial Position Sitting Pulse 67 Pulse Source Pulse Oximeter Pulse Oximetry (%) 99 Oxygen Delivery Method Room Air Intake Visit Reasons: AWV Intake Note: Patient is here for an Annual Wellness Visit. Bilingual Spanish Inbound Sales Required: No Director Of Physical Security: Director Of Physical Security offered & declined Allergies Sulfa (Sulfonamide Antibiotics) Allergy (Mild, Verified 05/27/24 13:05) UNKNOWN Medication List - Last Reconciled 05/27/24 by Bashir Tadeo MD cariprazine 6 mg PO DAILY cholecalciferol (vitamin D3) 25 mcg PO DAILY clonazepam 0.5 - 1 mg (0.5 - 1 x 1 mg) PO TID donepezil 10 mg PO DAILY fluvoxamine 75 mg (1.5 x 50 mg) PO BID 30 days levothyroxine 112 mcg PO DAILY lithium carbonate ER 900 mg (2 x 450 mg) PO BEDTIME loperamide 2 mg PO Q8H PRN 7 days olanzapine 10 mg PO BID 30 days tacrolimus 0.1% 1 appl topical BID HPI AWV HPI Details 48-year-old female presents to the office requesting an annual wellness exam. 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 Father No problems noted. Social History Housing: House Are you a primary point of care technician to a significant other at home: No Do you presently have visiting nurse or other home services: No Alcohol intake: never Patient Tobacco Use Status: Former Tobacco user Tobacco use type: Cigarette e-Cigarette/Vaping Use: Never Used Second Hand Smoke Exposure: No service: No Current occupational status: disabled Cognitive needs: No Hearing needs: No Vision needs: Yes (Glasses) Female Reproductive History Menstrual Age of Menarche: 10 Questionnaire Medicare Wellness Checkup What is your age?: 65-69 (48) What gender do you identify with?: female During the past 4 weeks, how much have you been bothered by emotional problems such as feeling anxious, depressed, irritable, sad or downhearted, and blue?: slightly During the past 4 weeks, has your physical & emotional health limited your social activities with family, friends, neighbors, or groups?: slightly During the past 4 weeks, how much bodily pain have you generally had?: mild pain During the past 4 weeks, was someone available to help you if you needed & wanted help?: yes, some During the past 4 weeks, what was the hardest physical activity you could do for at least 2 minutes?: moderate Can you get to places out of walking distance without help? (For eg., can you travel alone on buses, taxis or drive your car?): Yes Can you go shopping for groceries or clothes without someone's help?: Yes Can you prepare your own meals?: Yes Can you do your housework without help?: Yes Because of any health problems, do you need the help of another person with your personal care needs such as eating, bathing, dressing or getting around the house?: No Can you handle your own money without help?: Yes During the past 4 weeks, how would you rate your health in general?: fair During the past 4 weeks how have things been going for you?: pretty well Are you having difficulties driving your car?: no Do you always fasten your seat belt when you are in a car?: yes, usually During past 4 weeks, have you been bothered by the following: never: Sexual problems?, Teeth or denture problems? and Problems using the telephone? and seldom: Falling or dizzy when standing up, Trouble eating well? and Tiredness or fatigue? Have you fallen 2 or more times in the past year?: No Are you afraid of falling?: No Are you a smoker?: no During the past 4 weeks, how many drinks of wine, beer, or other alcoholic beverages did you have?: no alcohol at all Do you exercise for about 20 minutes 3 or more times a week?: yes, all the time Have you been given information to help with the following?: yes: Keeping track of your medications? and no: Hazards in your house that might hurt you? How often do you have trouble taking medicines the way you have been told to take them?: I always take medicine as prescribed How confident are you that you can control & manage most of your health problems?: very confident What is your race?: White Mini Mental State Exam (MMSE) Orientation What is the (year) (season) (date) (day) (month)?: year, season and date Where are we (state) (county) (town or city) (hospital) (floor)?: state, county and town or city Score Score: 6 Activity of Daily Living Bathing - sponge bath, tub bath or shower: receives no assistance (gets in/out by self, if usual bathing means Dressing - getting clothes from closets & drawers, including inner/outer garments & fasteners.: gets clothes & gets completely dressed without help Toileting - going to the 'toilet room' for urine/bowel elimination & cleaning self/arranging clothes: goes to toilet room, cleans self, arranges clothes without help Transfer: moves in & out of bed and chair without help (may use support object) Continence: controls urination/bowel movements completely by self Feeding: feeds self without help Total Score: 0 Information obtained from: patient Using telephone: independent Traveling: independent Shopping: independent Preparing meals: independent Housework: independent Taking medicine: independent Managing money: independent PHQ-9 Over the last 2 weeks, how often have you been bothered by any of the following problems? 1. Little interest or pleasure in doing things: several days 2. Feeling down, depressed, or hopeless: several days 3. Trouble falling or staying asleep, or sleeping too much: several days 4. Feeling tired or having little energy: not at all 6. Feeling bad about yourself - or that you are a failure or have let yourself or your family down: not at all 7. Trouble concentrating on things, such as reading the newspaper or watching television: not at all 8. Moving or speaking so slowly that other people could have noticed. Or the opposite - being so fidgety or restless that you have been moving around a lot more than usual: not at all Depression Screening Interpretation: Positive Depression Screening Done: Yes Source: Developed by Drs. Adam Donohue, Rishi Mane and colleagues, with an educational pranay from [email or web address]. Thrive Questionnaire Date Thrive assessed: 01/11/24 JYOTSNA-7 AMB Questionnaire JYOTSNA-7 Date JYOTSNA - 7 assessed: 01/11/24 Source: Developed by Drs. Adam Donohue, Gracie Toure, Rishi Abdi and colleagues, with an educational pranay from [email or web address]. Physical Exam Vital Signs: Last Vital Signs Pulse 67 05/25/24 13:34 BP 122/66 05/25/24 13:34 Pulse Ox 99 05/25/24 13:34 Oxygen Delivery Method Room Air 05/25/24 13:34 BMI result Body Mass Index 32.8 Balance: Normal Romberg: Negative Tandem Walk: Able to Walk and Turn: Able to Rise from sit to stand: Able to Hearing Whisper test: Pass Assessment & Plan Assessment & Plan (1) Schizoaffective disorder, bipolar type: Comment: bipolar Code(s): F25.0 - Schizoaffective disorder, bipolar type Plan: Condition is stable. Under the active care of a psychiatrist. (2) Hypothyroid: Code(s): E03.9 - Hypothyroidism, unspecified Qualifiers: Hypothyroidism type: acquired Qualified Code(s): E03.9 - Hypothyroidism, unspecified Plan: TSH is in range. Continue medications at same dosage. (3) Hypercholesterolemia: Code(s): E78.00 - Pure hypercholesterolemia, unspecified Plan: LDL is in range. (4) Hip fracture requiring operative repair: Code(s): S72.009A - Fracture of unspecified part of neck of unspecified femur, initial encounter for closed fracture Plan: Condition is stable. Able to function and do all activities of daily living. (5) Annual physical exam: Code(s): Z00.00 - Encounter for general adult medical examination without abnormal findings Plan: About reviewed. Medications: New tacrolimus 0.1% 1 appl topical BID 30 grams 0RF tacrolimus 0.1% 1 appl topical BID 30 grams 0RF Coding Level of Care Code Medicare First (G0438) Diagnoses Schizoaffective disorder, bipolar type F25.0 Acquired hypothyroidism E03.9 Hypothyroidism type: acquired Hypercholesterolemia E78.00 Hip fracture requiring operative repair S72.009A Annual physical exam Z00.00
[2024-05-25 13:34] VITALS: BP 122/66; PULSE 67; O2SAT 99; BMI 32.8
== END 2024-05-25 16:28 | disposition home or self-care (01) ==
PROVIDERS: PCP Internal Medicine; Visit Provider Internal Medicine
DX: E78.00 Pure hypercholesterolemia, unspecified (principal); S72.009A Fracture of unspecified part of neck of unspecified femur, initial encounter for closed fracture; F25.0 Schizoaffective disorder, bipolar type; E03.9 Hypothyroidism, unspecified
CPT/HCPCS: 99214

== ENCOUNTER 2024-05-27 05:59 | Day surgery (SDC) | payer MEDICARE, MEDICAID, SELFPAY ==
[2024-05-27] VITALS (7 sets, daily range): BP systolic 116–141; BP diastolic 53–80; PULSE 43–67; RESP 12–18; TEMP 36.2–36.6; O2SAT 98–100; BMI 31.0
--- NOTE | 2024-05-27 06:54 | HO.ANESPROP2 ---
[facility] Active Problems Active Problems: All Active Problems group home current use of clozapine (Acute) Preoperative clearance (Acute) Left foot pain (Acute) Tinea pedis (Acute) Left foot pain (Acute) Shortness of breath (Acute) Hyperkalemia (Acute) Diarrhea (Acute) Palpitation (Acute) Eczema (Acute) Postmenopausal bleeding (Acute) Amenorrhea (Acute) Well woman exam (Acute) Menopause (Acute) Complex ovarian cyst (Acute) Elevated blood pressure reading without diagnosis of hypertension (Acute) Hypercholesterolemia (Acute) Hypothyroid (Acute) Schizoaffective disorder, bipolar type (Chronic) Past Medical History 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 Father No problems noted. Family history of problems with anesthesia: No Surgical History Surgical History History of surgery on lower extremity History of hip replacement History of tracheostomy History of hip surgery Status post aortic coarctation stent placement H/O rhinoplasty History of Problems with Anesthesia: No Social History Social History Housing: House Are you a primary family day care worker to a significant other at home: No Do you presently have visiting nurse or other home services: No Alcohol intake: never Patient Tobacco Use Status: Former Tobacco user Tobacco use type: Cigarette e-Cigarette/Vaping Use: Never Used Second Hand Smoke Exposure: No Advance Directives: No Advance Directives Information Provided: Yes service: No Current occupational status: disabled Cognitive needs: No Hearing needs: No Vision needs: Yes (Glasses) Meds Allergies Allergy/AdvReac Type Severity Reaction Status Date / Time Sulfa (Sulfonamide Allergy Mild UNKNOWN Verified 05/25/24 13:33 Antibiotics) Home Medications ?Medication ?Instructions ?Recorded ?Confirmed ?Last Taken ?Type cholecalciferol (vitamin D3) 25 25 mcg PO DAILY 06/23/23 05/10/24 Unknown History mcg (1,000 unit) capsule Exam Height,Weight and Vital Signs: Height 5 ft 3 in Weight 79.379 kg Last Vital Signs Temp 97.2 F 05/27/24 06:26 Pulse 67 05/27/24 06:26 Resp 18 05/27/24 06:26 BP 141/69 H 05/27/24 06:26 Pulse Ox 99 05/27/24 06:26 O2 Del Method Room Air 05/27/24 06:26 Airway Mallampati Class: II TM Dist: >3cm Neck ROM: Full Heart: rrr Lungs: cta Assessment and Plan Assessment Anesthesia Assessment: Anesthesia Plan Discussed and Chart Reviewed Final Anesthetic Review Family History of Problems with Anesthesia: No History of Problems with Anesthesia: No NPO: Yes ASA Class: III Final Preanesthetic Review: No Changes in Pt Med Stat, Meds/Allgs Chart Reviewed and Consent Obtained/Reviewed Patient Risk: Intermediate Procedure Risk: Intermediate Anesthetic Plan Anesthetic Plan: GA Disposition: Standard PACU
[2024-05-27] MEDS: Lactated Ringers 1,000 ML 50 ML IVCONT (07:01)
--- NOTE | 2024-05-27 07:05 | P.HPSUR_ITS ---
Pre-Procedural Eval Section A - 24 Hr Update-Section A only Date of Service: 05/27/24 The patient is an INPATIENT: No Section B - Complete if H&P > 30 days Chief Complaint: Major depressive disorder, recurrent, severe with Details of Present Illness: recurrent dep with paranoia no new medical concerns Medical History: Significant History History of Previous Operations: Relevant previous surgery/procedure and date(s) (ect) Allergies: Allergies Allergy/AdvReac Type Severity Reaction Status Date / Time Sulfa (Sulfonamide Allergy Mild UNKNOWN Verified 05/25/24 13:33 Antibiotics) Review of Systems Sugical H&P ROS: Negative: Cardiovascular and Respiratory and Yes, Specify: Andrew rological (working attn difficulty) Exam Surgical H&P Exam: Normal: Heart, Normal: Lungs and Normal: Neurological Exam Comment: Plan Diagnosis/Plan: Unchanged I have reviewed the history and physical and performed a pertinent physical examination on my patient. No changes have occurred unless specified. Time Spent With Patient Time: Total time managing care of this patient today ____ minutes.
--- NOTE | 2024-05-27 07:10 | HO.ECTPROC ---
ECT Procedure Note Diagnosis/Treatment Date of Service: 05/27/24 Diagnosis: Schizoaffective Disorder Treatment: Maintenance Interval Clinical Notes: clozapine d/cby pt performed BF to limit side effects has some chronic problems with working attention short-term memory but ECT has often been the only effective treatment to bring her out of depression with suicidal rumination she continues to feel the benefits outweigh the risk changed to bifrontal 0.25 program Time: Total time managing care of this patient today ____ minutes. ECT Settings Device: THYMATRON DGx Electrode Placement: Bifrontal Program/Pulse Width: 0.25 Energy Percent: 100 Seizure Duration By EEG (in seconds): 65 Medications Administration General Anesthetic: Etomidate (16) Muscle Relaxant: Succinylcholine (100) Ancillary Medications Analgesics: Torodol - Pre ECT Anti-emetics: Zofran - Pre ECT Airway Management Airway Management: Bag Mask Ventilation Treatment Recommendations No Changes Recommended: No change Notes: Patient often discontinues follow-up ECT secondary to anxiety has done worse when she misses somewhere in the range of every 3-5 weeks. 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
[2024-05-27 08:25] LABS: Lithium 0.35 mmol/L (0.60-1.20)
[2024-05-27 08:32] LABS: Alanine Aminotransferase 15 U/L (0-31); Albumin Level 4.5 g/dL (3.5-5.0); Alkaline Phosphatase 83 U/L (39-117); Anion Gap 14 (12-20); Aspartate Amino Transferase 19 U/L (5-31); Bilirubin Total 0.4 mg/dL (0.0-1.0); Blood Urea Nitrogen 17 mg/dL (9-16); Calcium 10.4 mg/dL (8.4-10.2); Carbon Dioxide 27 mmol/L (22-29); Chloride 109 mmol/L (96-108); Creatinine Clr Calc Pharmacy 68.5; Estimated Glomerular Filt Rate > 60; Glucose Random 132 mg/dL (60-115); Potassium 4.7 mmol/L (3.3-5.1); Sodium 145 mmol/L (135-145); Total Protein 7.3 g/dL (6.5-8.0)
[2024-05-27 08:34] LABS: Estimated Average Glucose 114 mg/dL; Hemoglobin A1c % 5.6 % (<6.0); Total Hemoglobin (HGBA1C) 3360.4295 umol/L
== END 2024-05-27 08:24 | disposition home or self-care (01) ==
PROVIDERS: PCP Internal Medicine; Visit Provider Psychiatry & Neurology Psychiatry
PROC: (CPT 90870; principal; 2024-05-27 08:00)
DX: F33.2 Major depressive disorder, recurrent severe without psychotic features (principal)
CPT/HCPCS: 36415; 80053; 80178; 83036; 90870; J0330; J1885; J2405

== ENCOUNTER → 2024-05-27 05:59 | Outpatient (BNV) | payer MEDICARE, MEDICAID, SELFPAY | PROVIDERS: PCP Internal Medicine; Visit Provider Psychiatry & Neurology Psychiatry | DX: F33.3 Major depressive disorder, recurrent, severe with psychotic symptoms (principal) | CPT/HCPCS: 90870 ==

== ENCOUNTER 2024-06-15 13:39 | Outpatient (AMB) | payer MEDICARE, MEDICAID, SELFPAY ==
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
== END 2024-06-15 19:09 | disposition home or self-care (01) ==
LOC: HO.HOP 13:39
PROVIDERS: PCP Internal Medicine; Visit Provider Psychiatry & Neurology Psychiatry
DX: F25.0 Schizoaffective disorder, bipolar type (principal)
CPT/HCPCS: 99214

== ENCOUNTER → 2024-06-15 13:39 | Outpatient (BNVA) | payer MEDICARE, MEDICAID, SELFPAY | PROVIDERS: PCP Internal Medicine; Visit Provider Psychiatry & Neurology Psychiatry | DX: F25.0 Schizoaffective disorder, bipolar type (principal) | CPT/HCPCS: 99212 ==

== ENCOUNTER 2024-07-15 05:55 | Day surgery (SDC) | payer MEDICARE, MEDICAID, SELFPAY ==
--- NOTE | 2024-07-15 | ECG_ITS ---
Test Reason : PRE OP Blood Pressure : / mmHG Vent. Rate : 064 BPM Atrial Rate : 064 BPM P-R Int : 194 ms QRS Dur : 112 ms QT Int : 428 ms P-R-T Axes : 044 -18 029 degrees QTc Int : 441 ms Normal sinus rhythm Cannot rule out Inferior infarct , age undetermined T wave abnormality, consider anterior ischemia Abnormal ECG When compared with ECG of 23-FEB-2024 12:06, No significant change was found Referred By: Jose Carlos Alvarez Electronically Signed By:JULIO GALLEGOS
[2024-07-15 06:25] VITALS: BP 157/73; PULSE 77; RESP 16; TEMP 36.5; O2SAT 98; BMI 30.1
[2024-07-15] MEDS: Lactated Ringers 1,000 ML 100 ML IVCONT (07:02)
--- NOTE | 2024-07-15 07:03 | P.HPSUR_ITS ---
Pre-Procedural Eval Section A - 24 Hr Update-Section A only Date of Service: 07/15/24 The patient is an INPATIENT: No Section B - Complete if H&P > 30 days Chief Complaint: Major depressive disorder, recurrent, severe with Details of Present Illness: recurrent dep with paranoia no new medical concerns Medical History: Significant History History of Previous Operations: Relevant previous surgery/procedure and date(s) (ect) Allergies: Allergies Allergy/AdvReac Type Severity Reaction Status Date / Time Sulfa (Sulfonamide Allergy Mild UNKNOWN Verified 05/27/24 13:05 Antibiotics) Review of Systems Sugical H&P ROS: Negative: Cardiovascular and Respiratory and Yes, Specify: Andrew rological (working attn difficulty st memory ) and Psychiatric (paranoia depression) Exam Surgical H&P Exam: Normal: Heart (rr), Normal: Lungs (clear) and Normal: Neurological (no movement) Exam Comment: 141/69 Plan Diagnosis/Plan: Unchanged I have reviewed the history and physical and performed a pertinent physical examination on my patient. No changes have occurred unless specified. Time Spent With Patient Time: Total time managing care of this patient today ____ minutes.
--- NOTE | 2024-07-15 07:03 | P.CONAN_ITS ---
HPI - Anesthesia Eval Consult details Narrative: 49 yo female patient with major depresson. 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 (Acute) Preoperative clearance (Acute) Left foot pain (Acute) Tinea pedis (Acute) Left foot pain (Acute) Shortness of breath (Acute) Hyperkalemia (Acute) Diarrhea (Acute) Palpitation (Acute) Eczema (Acute) Postmenopausal bleeding (Acute) Amenorrhea (Acute) Well woman exam (Acute) Menopause (Acute) Complex ovarian cyst (Acute) Elevated blood pressure reading without diagnosis of hypertension (Acute) Hypercholesterolemia (Acute) Hypothyroid (Acute) Schizoaffective disorder, bipolar type (Chronic) Past Medical History Medical History half-way current use of clozapine Hypercholesterolemia Hypothyroid Liver laceration Hip fracture requiring operative repair Liver problem Schizoaffective disorder, bipolar type Depression Elevated cholesterol Family History Family History Mother No problems noted. Father No problems noted. Family history of problems with anesthesia: No Surgical History Surgical History History of surgery on lower extremity History of hip replacement History of tracheostomy History of hip surgery Status post aortic coarctation stent placement H/O rhinoplasty History of Problems with Anesthesia: No Social History Social History Housing: House Are you a primary career development consultant to a significant other at home: No Do you presently have visiting nurse or other home services: No Alcohol intake: never Patient Tobacco Use Status: Former Tobacco user Tobacco use type: Cigarette e-Cigarette/Vaping Use: Never Used Second Hand Smoke Exposure: No service: No Current occupational status: disabled Cognitive needs: No Hearing needs: No Vision needs: Yes (Glasses) Meds Allergies Allergy/AdvReac Type Severity Reaction Status Date / Time Sulfa (Sulfonamide Allergy Mild UNKNOWN Verified 05/27/24 13:05 Antibiotics) Active Medications: Current Medications Lactated Ringer's (Lr) 1,000 mls @ 100 mls/hr IVCONT .Q10H KEHINDE Last Admin: 07/15/24 07:02 Dose: 100 mls/hr Home Medications ?Medication ?Instructions ?Recorded ?Confirmed ?Last Taken ?Type cholecalciferol (vitamin D3) 25 25 mcg PO DAILY 06/23/23 06/15/24 Unknown History mcg (1,000 unit) capsule Exam Height,Weight and Vital Signs: Height 5 ft 3 in Weight 77.111 kg Last Vital Signs Temp 97.7 F 07/15/24 06:25 Pulse 77 07/15/24 06:25 Resp 16 07/15/24 06:25 BP 157/73 H 07/15/24 06:25 Pulse Ox 98 07/15/24 06:25 O2 Del Method Room Air 07/15/24 06:25 Airway Mallampati Class: II TM Dist: >3cm Neck ROM: Full Loose/Missing/Broken Teeth: No Heart: RRR Lungs: CTAB Assessment and Plan Assessment Anesthesia Assessment: Anesthesia Plan Discussed and Chart Reviewed Final Anesthetic Review Family History of Problems with Anesthesia: No History of Problems with Anesthesia: No NPO: Yes ASA Class: III Final Preanesthetic Review: No Changes in Pt Med Stat, Meds/Allgs Chart Reviewed, Consent Obtained/Reviewed and Anes Risks/Benef Reviewed Patient Risk: Intermediate Procedure Risk: Intermediate Assessment/Block/Sedation in SS: Assess/Block/Sedation-SS Anesthetic Plan Anesthetic Plan: GA Disposition: Standard PACU
--- NOTE | 2024-07-15 07:10 | HO.ECTPROC ---
ECT Procedure Note Diagnosis/Treatment Date of Service: 07/15/24 Diagnosis: Schizoaffective Disorder Treatment: Maintenance Interval Clinical Notes: clozapine d/cby pt performed BF to limit side effects has some chronic problems with working attention short-term memory but ECT has often been the only effective treatment to bring her out of depression with suicidal rumination she continues to feel the benefits outweigh the risk changed to bifrontal 0.25 program Time: Total time managing care of this patient today ____ minutes. ECT Settings Device: THYMATRON DGx Electrode Placement: Bifrontal Program/Pulse Width: 0.50 Energy Percent: 100 Seizure Duration By EEG (in seconds): 46 Medications Administration General Anesthetic: Etomidate (16) Muscle Relaxant: Succinylcholine (100) Ancillary Medications Analgesics: Torodol - Pre ECT Anti-emetics: Zofran - Pre ECT Airway Management Airway Management: Bag Mask Ventilation Treatment Recommendations No Changes Recommended: No change Program/Pulse Width: 0.50 Notes: Patient often discontinues follow-up ECT secondary to anxiety has done worse when she misses somewhere in the range of every 3-5 weeks. She did discontinue clozapine we have discussed this repeatedly that it is most effective medication for treatment resistant psychosis This cont to be true inc 0.5 pw some inc PI will encourage clozapine ongoing luvox 100 bid monitor for cycling
[2024-07-15 07:21] VITALS: BP 147/71; PULSE 51; RESP 23; TEMP 37; O2SAT 98
[2024-07-15 07:26] VITALS: BP 113/63; PULSE 63; RESP 16; O2SAT 98
[2024-07-15 07:31] VITALS: BP 114/69; PULSE 67; RESP 16; O2SAT 98
[2024-07-15 07:36] VITALS: BP 126/81; PULSE 67; RESP 18; O2SAT 99
[2024-07-15 07:50] LABS: MANUAL DIFF FLAG NO
[2024-07-15 07:51] VITALS: BP 113/56; PULSE 68; RESP 18; TEMP 37; O2SAT 96
[2024-07-15 07:52] LABS: Basophils Percent Auto 0.6 % (0-2); Eosinophils Absolute Auto 0.1 X10*3/uL (0.0-0.4); Eosinophils Percent Auto 1.1 % (0-4); Hematocrit 40.9 % (37.0-47.0); Hemoglobin 13.7 g/dl (12.0-16.0); Imm Gran Abs Auto 0.03 X10*3/uL (0.00-0.03); Imm Gran Pct Auto 0.5 % (0.0-0.4); Lymphocytes Absolute Auto 0.9 X10*3/uL (1.2-4.9); Lymphocytes Percent Auto 14.2 % (20-40); Mean Corpuscular HGB Conc 33.5 g/dl (31.0-35.0); Mean Corpuscular Hemoglobin 31.3 pg (27.0-33.0); Mean Corpuscular Volume 93.4 fL (80.0-98.0); Mean Platelet Volume 9.5 fL (9.4-12.3); Monocytes Absolute Auto 0.4 X10*3/uL (0.1-1.2); Monocytes Percent Auto 5.4 % (2-11); Neutrophils Absolute Auto 5.2 x10*3/uL (2.0-8.3); Neutrophils Percent Auto 78.2 % (45-73); Platelet Count 215 X10*3/uL (160-400); Red Blood Count 4.38 X10*6/uL (4.20-5.50); Red Cell Distribution Width 12.9 % (11.0-16.0); White Blood Count 6.6 X10*3/uL (4.8-10.8)
[2024-07-15 08:03] LABS: Lithium 0.47 mmol/L (0.60-1.20)
[2024-07-15 08:15] LABS: Alanine Aminotransferase 40 U/L (0-31); Albumin Level 4.5 g/dL (3.5-5.0); Alkaline Phosphatase 93 U/L (39-117); Anion Gap 12 (12-20); Aspartate Amino Transferase 32 U/L (5-31); Bilirubin Total 0.7 mg/dL (0.0-1.0); Blood Urea Nitrogen 15 mg/dL (9-16); Calcium 9.9 mg/dL (8.4-10.2); Carbon Dioxide 28 mmol/L (22-29); Chloride 108 mmol/L (96-108); Creatinine Clr Calc Pharmacy 71.1; Estimated Glomerular Filt Rate > 60; Glucose Fasting 137 mg/dL (60-99); Potassium 4.3 mmol/L (3.3-5.1); Sodium 144 mmol/L (135-145); Total Protein 7.3 g/dL (6.5-8.0)
--- OUTSIDE RECORDS SUMMARY | 2024-07-17 00:13 | XMS_ITS | Continuity of Care Document ---
Author Organization [facility] ter Address [address] [place] [id number]- Care Team Providers Care Research Worker Encyclopedia Name Role Phone Carlyle GAN, Bashir Laws Primary Care Physic shadi Encounter [facility] Date(s): 06/03/24 - 07/08/[address] [address]- Attending Physician: Octavio Breen MD Admitting Physician: Octavio Breen MD Referring Physician: Octavio Breen MD Allergies, Adverse Reactions, Alerts Substance Reaction Severity Status sulfADIAZINE Active Immunizations Given and Recorded Vaccine Date Status Refusal Reason influenza virus vaccine, inactivated 10/01/18 Tim rded influenza virus vaccine, inactivated 1 08/18/17 Gi cris tetanus/diphtheria/pertussis, acel(Tdap) 03/17/17 Given 1Admin Note: [facility] Medications aspirin 325 mg oral tablet 325 mg, 1, tablet, By Mouth, Daily, # 30 tablet, Refills 0, Tot. Refills 0, Maintenance, 04/05/23 22:35:00 EDT, Route to Pharmacy Electronically, [facility], Partial fill upon patient request if the prescription is for a schedule II o... Start Date: 04/05/23 Status: Ordered aspirin 81 mg oral capsule 1 capsule = 81 mg, By Mouth, Every 4 hours, 0 Refills, Maintenance, 04/02/23 10:32:00 EDT, Partial fill upon patient request if the prescription is for a schedule II opioid drug. Start Date: 04/02/23 Status: Ordered cariprazine 3 mg oral capsule 2 capsule = 6 mg, By Mouth, Daily, 0 Refills, Maintenance, 04/25/19 13:38:04 EDT Start Date: 04/25/19 Status: Ordered Clozapine By Mouth, 0 Refills, Maintenance, 04/02/23 10:32:00 EDT, Partial fill upon patient request if the prescription is for a schedule II opioid drug. Start Date: 04/02/23 Status: Ordered donepezil 5 mg oral tablet [...] opioid drug. Start Date: 06/19/22 Status: Ordered levothyroxine 0.112 mg oral tablet 1 tablet = 112 mcg, By Mouth, Daily, # 30 tablet, 0 Refills, Maintenance, 06/19/22 10:04:00 EDT, Tablet, Partial fill upon patient request if the prescription is for a schedule II opioid drug. Start Date: 06/19/22 Status: Ordered lithium 450 mg oral tablet, [...] opioid drug. Start Date: 07/11/22 Status: Ordered Vitamin D3 2000 intl units oral tablet 1 tablet = 2,000 International_Units, By Mouth, Daily, 0 Refills, Maintenance, 11/03/17 14:44:38 Start Date: 11/03/17 Status: Ordered Problem List Condition Confirmation Course Effective Dates Status H ealth Status Informant Bipolar 2 disorder, major depressive episode Confirmed Active GERD (gastroesophageal reflux disease) Confirmed Active S/P insertion of endovascular thoracic aortic stent graft Confirmed Active Hyperlipidemia Confirmed Active Hypothyroidism Confirmed Active IBS (irritable bowel syndrome) Confirmed Active Major depression Confirmed Active Obese class I Confirmed Active Traumatic osteoarthritis Confirmed Active Social History Social History Type Response Smoking Status Former smoker, quit more than 30 days ago entered on: 06/21/24 Sex Patient Care team information Care Team Personnel Name: Audi Romero RN Position: [facility] RN Member Role: Primary Care Nurse Name: Maria M Ochoa RN Position: S RN Member Role: Primary Care Nurse Name: Trcaie Beckham RN Position: [facility] RN Member Role: Primary Care Nurse Name: Beatrice De La Paz RN Position: [facility] AMB Nurse Member Role: Primary Care Nurse Name: Carlyle GAN, Bashir Laws Position: Reference Physician Member Role: PCP Address: Address: [address] [place] [address] [address] [place] [address]- Name: Elvi Cerrato RN Position: [facility] RN Member Role: Primary Care Nurse Name: Octavio Breen MD Position: [facility] Physician - Cardiac/Vascular Surgery Med Service: Vascular Surgery Member Role: Referring Physician Address: Address: [address] [place] [address] [place] [address]- Care Team Related Persons Name: RAJAN CHRISTENSEN Address: home [address] [place] [address] Name: LORENZO DUFF Address: home [address] [facility] [address]
--- OUTSIDE RECORDS SUMMARY | 2024-07-17 00:14 | XMS_ITS | Continuity of Care Document ---
Author Organization [facility] Address [address] [place] [address]- Care Team Providers Care Deployment Technician Name Role Phone Carlyle GAN, Bashir Laws Primary Care Physic shadi Encounter [facility] Date(s): 05/25/24 - 06/24/24 [facility] [address] [place] [address]- Allergies, Adverse Reactions, Alerts Substance Reaction Severity [...] 04/05/23 22:35:00 EDT, Route to Pharmacy Electronically, [facility], Partial fill upon patient [...] Team Personnel Name: Audi Romero RN Position: [facility] RN Member Role: Primary Care Nurse Name: Maria M Ochoa RN Position: [facility] RN Member Role: Primary Care Nurse Name: Tracie Beckham RN Position: S RN Member Role: Primary Care Nurse Name: Beatrice De La Paz RN Position: [facility] AMB Nurse Member Role: Primary Care Nurse Name: Carlyle GAN, Bashir Laws Position: Reference Physician Member Role: PCP Address: Address: [address] [place] [address]- Name: Elvi Cerrato RN Position: [facility] RN Member Role: Primary Care Nurse Care Team Related Persons Name: RAJAN CHRISTENSEN Address: home [address] [place] [address] Name: LORENZO DUFF Address: home [address] [place] [address]
--- OUTSIDE RECORDS SUMMARY | 2024-07-17 00:14 | XMS_ITS | Continuity of Care Document ---
Author Organization [facility] Address [address] [place] [address]- Care Team Providers Care Advice Line Rn Name Role Phone Carlyle GAN, Bashir Laws Primary Care Physic shadi Encounter [facility] Date(s): 06/21/24 - 06/28/24 [facility] [address] [place] [address]- Encounter Diagnosis S/P insertion of endovascular thoracic aortic stent graft(Discharge Diagnosis) - 06/18/24 Attending Physician: Octavio Breen MD Admitting Physician: [...] 04/05/23 22:35:00 EDT, Route to Pharmacy Electronically, [facility], Partial fill upon patient request [...] I Confirmed Active Traumatic osteoarthritis Confirmed Active Diagnosis Diagnosis Type Effective Dates Health Status Clinical Service Informant S/P insertion of endovascular thoracic aortic stent graft Discharge Diagnosis 06/18/24 Vital Signs Most recent to oldest [Reference Range]: 1 Height 160 cm (06/21/24 2:49 PM) Weight 79.5 kg (06/21/24 2:49 PM) Oxygen Saturation [94-100 %] 98 % (06/21/24 2:49 PM) Pulse Rate [55-90 bpm] 73 bpm (06/21/24 2:49 PM) Body Mass Index [18.5-24.99 kg/m2] 31.05 kg/m2 *>HHI* (06/21/24 2:49 PM) Blood Pressure [90-138/55-84 mm Hg] 110/ 70mm Hg (06/21/24 2:49 PM) Mode of Delivery (Oxygen) Room air (06/21/24 2:49 PM) Blood pressure sites Arm, left (06/21/24 2:49 PM) Weight Obtained Via Patient/family state d (06/21/24 2:49 PM) Social History Social History Type Response Smoking Status Former smoker, quit more than 30 days ago entered on: 06/21/24 Sex Note * Lester Genao: PERFORM Event Display: Patient Education/Instruction Authored Date: [id number] Ambulatory Adult Visit Summary [address] [address] Name: ROBYN DUFF : 1975?? Visit: 06/21/2024 14:38?? Ambulatory Visit Instructions ?? Your Care Team Primary Care Provider Bashir Tadeo MD? This Visit Provider Octavio Breen MD Your Diagnosis S/P insertion of endovascular thoracic aortic stent graft Vitals Signs Pulse Rate: 73 bpm Height: 160 cm Systolic Blood Pressure: 110 mm Hg Weight: 79.5 kg Diastolic Blood Pressure: 70 mm Hg Body Mass Index:??31.05 kg/m2??Critical Oxygen Saturation: 98 % Body surface area: 1.88 Medications The list below reflects the information in our records and provided by you today along with any changes made during this visit. Please continue your medications until treatment is completed or stopped by your provider. If this is different from the information you have or there are other questions,please contact the prescribing provider. What How Much When Instructions Unchanged Aspirin (aspirin 325 mg oral tablet) 1 tab(s) Oral Daily Unchanged Aspirin (aspirin 81 mg oral capsule) 1 capsule Oral Every 4 hours Unchanged cariprazine (cariprazine 3 mg oral capsule) 2 capsule Oral Daily Unchanged Cholecalciferol (Vitamin D3 2000 intl units oral tablet) 1 tab(s) Oral Daily Unchanged Clozapine Oral Unchanged Donepezil (donepezil 5 mg oral tablet) 2 tab(s) Oral Daily at Bedtime Unchanged Fluvoxamine (fluvoxaMINE 25 mg oral tablet) 1 tab(s) Oral 3 times a day Unchanged Levothyroxine (levothyroxine 0.112 mg oral tablet) 1 tab(s) Oral Daily Unchanged [place] (lithium 450 mg oral tablet, extended release) 2 tab(s) Oral Daily at Bedtime Unchanged Lorazepam (LORazepam 1 mg oral tablet) 1 tab(s) Oral Daily in the morning Unchanged Lorazepam (LORazepam 1 mg oral tablet) 1 tab(s) Oral Daily at Bedtime Unchanged Olanzapine (olanzapine 10 mg oral tablet) 2 tab(s) Oral Twice a day Medications and Immunizations Administered Medications Given During Visit No medications given during this visit.?? Allergies (NKA means No Known Allergies) sulfADIAZINE Common Emergency Awareness Tips IS IT A STROKE? Act FAST and Check for these signs: FACE Does the face look uneven? ARM Does one arm drift down? SPEECH Does their speech sound strange? TIME Call at any sign of stroke ?? Heart Attack Signs Chest discomfort: Most heart attacks involve discomfort in the center of the chest and lasts more than a few minutes, or goes away and comes back. It can feel like uncomfortable pressure, squeezing, fullness or pain. Discomfort in upper body: Symptoms can include pain or discomfort in one or both arms, back, neck, jaw or stomach. Shortness of breath: With or without discomfort. Other signs: Breaking out in a cold sweat, nausea, or lightheaded. Remember, MINUTES DO MATTER. If you experience any of these heart attack warning signs, call to get immediate medical attention! ?? Smoking can increase your chances of developing chronic health problems and can cause harmful effects to other family members in your house. If you smoke, you are strongly encouraged to quit. Please call [facility] [employer] Link at [phone] or [phone] ([phone]) or log in to [email or web address] for referrals to smoking cessation programs. ?? The National Suicide Prevention Hotline is available 15/06 if you or someone you know needs to find a reason to keep living. By calling 1-473-102-[employer] (7043) you'll be connected to a skilled, trained counselor at a crisis center in your area. [facility] [employer] Portal You can view and manage your care through the patient portal or by using a health care polo of your choosing. [employer] is a website that allows you to securely view your medical information including your hospital discharge summary, office visit summaries, medications and follow-up visits. You can also request appointments, renew medications, and request access to your medical information using a health care polo of your choosing, or just ask a question. You can enroll at [email or web address] or register during your next office visit. [facility], in keeping with [facility] guidance, no longer requires face masks for staff, patientsor visitors in most situations. Similiar to time spent indoors at other locations, there is the chance that you were exposed to repiratory viruses during your time with us (such as flu or COVID-19). If you develop symptoms concerning for a viral respiratory infection, please seek testing (and treatment if indicated) from your medical provider or home test kit. ?? Disclaimer: The information provided is of a general nature and is intended to be used in conjunction with the recommendations and advice of your health care practitioner. Every effort has been made to ensure that the information provided is accurate and complete at the time it is provided to you however, as your needs change, or, as new information becomes available, different or additional instructions may be required. ?? If you have questions, please consult with your primary care provider or pharmacist, as appropriate. This information is not intended to serve as substitution for assessment and evaluation by a qualified health care provider. If you do not have a primary care provider, you may find a [facility] provider by calling [facility] [employer] [facility] at [phone]. Patient Care team information Care Team Personnel Name: Audi Romero RN Position: [facility] RN Member Role: Primary Care Nurse Name: Maria M Ochoa RN Position: [facility] RN Member Role: Primary Care Nurse Name: Tracie Beckham RN Position: S RN Member Role: Primary Care Nurse Name: Beatrice De La Paz RN Position: [facility] AMB Nurse Member Role: Primary Care Nurse Name: Carlyle GAN, Bashir Laws Position: Reference Physician Member Role: PCP Address: Address: [address] [place] [address]- Name: Elvi Cerrato RN Position: [facility] RN Member Role: Primary Care Nurse Care Team Related Persons Name: RAJAN CHRISTENSEN Address: home [address] [place] [address] Name: LORENZO DUFF Address: home [address] [place] [address]
== END 2024-07-15 08:17 | disposition home or self-care (01) ==
PROVIDERS: PCP Internal Medicine; Visit Provider Psychiatry & Neurology Psychiatry
PROC: (CPT 90870; principal; 2024-07-15 08:00)
DX: F25.0 Schizoaffective disorder, bipolar type (principal); E78.00 Pure hypercholesterolemia, unspecified; E03.9 Hypothyroidism, unspecified; K76.9 Liver disease, unspecified; Z79.899 Other long term (current) drug therapy; Z87.891 Personal history of nicotine dependence; Z98.890 Other specified postprocedural states; Z88.2 Allergy status to sulfonamides
CPT/HCPCS: 36415; 80053; 80178; 84443; 85025; 90870; 93005; J0330; J1885; J2405

== ENCOUNTER → 2024-07-15 05:55 | Outpatient (BNV) | payer MEDICARE, MEDICAID, SELFPAY | PROVIDERS: PCP Internal Medicine; Visit Provider Psychiatry & Neurology Psychiatry | DX: F33.3 Major depressive disorder, recurrent, severe with psychotic symptoms (principal) | CPT/HCPCS: 90870 ==

== ENCOUNTER 2024-07-26 09:08 | Outpatient (AMB) | payer MEDICARE, MEDICAID, SELFPAY ==
[2024-07-26 09:21] VITALS: BP 118/53; PULSE 63; BMI 34.3
--- NOTE | 2024-07-26 09:21 | A.OFFVIS_ITS ---
Vital Signs 07/26/24 09:21 Height 5 ft 3 in Weight 193 lb 9.054 oz BMI 34.3 BP 118/53 L Blood Pressure Location Rt brachial Position Sitting Pulse 63 Intake Visit Reasons: Colonoscopy screening Intake Note: New patient in office today for colonoscopy screening. CC: Patient c/o diarrhea for about 6 months. She states that she has been taking imodium and it helps with the symptoms. Per patient a couple of years ago she was diagnosed with IBS. Allergies Sulfa (Sulfonamide Antibiotics) Allergy (Mild, Verified 07/26/24 09:32) UNKNOWN HPI HPI Colonoscopy screening: Details: 49-year-old female here for preprocedural meeting to discuss a screening colonoscopy. She is referred by Bashir Tadeo. PMX Allergic rhinitis High cholesterol Hypothyroid Schizoaffective disorder Eczema History of hip fracture * SURGICAL HISTORY Left leg fracture repair Left hip replacement History of tracheostomy Aortic coarctation stent placed Left foot operation * ALLERGIES Sulfa * [employer] LABS: Laboratory Tests 07/15/24 07:46 WBC 6.6 Hgb 13.7 Hct 40.9 Plt Count 215 Estimated GFR > 60 Total Bilirubin 0.7 AST 32 H ALT 40 H Alkaline Phosphatase 93 TSH 1.70 TODAY'S VISIT This is her first colonoscopy. She has had a couple of years of diarrhea. She has a couple of years of watery diarrhea, 2-3 times a day not r/t eating. Controlling with imodium q2-3 days. She was stared on a lot of psych meds (lithium) since the onset of the diarrhea. No FHX of similar diarrheal sx. Her insurance was not paying for imodium - I will send it to see if this can be rendered under insurance. She denies any cardiac or respiratory problems. No ID problems. There are no prior problems with anesthesia or sedation. There is no known FHX of crc or polyps. Reassured her that there is no problem with using Imodium fear 4 times a week to control her diarrhea, however I would like to exclude any other reversible causes before we call this IBS which should be a diagnosis of exclusion. With that in mind will test her for food allergy, IBD, and pancreatic insufficiency. 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 Father No problems noted. Social History Housing: House Are you a primary ocular care aide to a significant other at home: No Do you presently have visiting nurse or other home services: No Alcohol intake: never Patient Tobacco Use Status: Former Tobacco user Tobacco use type: Cigarette e-Cigarette/Vaping Use: Never Used Second Hand Smoke Exposure: No service: No Current occupational status: disabled Cognitive needs: No Hearing needs: No Vision needs: Yes (Glasses) Female Reproductive History Menstrual Age of Menarche: 10 Review of Systems Const Denies fatigue, Denies fever(s), Denies night sweats, Denies poor appetite and Denies weight loss ENT Reports Normal hearing present, Denies dental pain, Denies dysphagia, Denies hearing loss, Denies mouth pain, Denies odynophagia, Denies throat swelling, Denies tongue swelling and Reports other (Dentition adequate) Card Reports no additional complaints Resp Reports no additional complaints GI Details: Denies abdominal pain, Denies melena, Denies bloating, Denies hematochezia, Denies constipation, Denies GI cramping, Denies dysphagia, Denies excessive flatus, Denies early satiety, Denies heartburn, Reports diarrhea, Denies nausea, Denies odynophagia, Denies vomiting and Denies hematemesis Skin/Breast Denies pruritus, Denies lesions, Denies rash and Denies jaundice Neuro Reports Normal hearing present and Denies Abnormal speech present Endo Denies fatigue Aller/Immun Denies throat swelling and Denies tongue swelling Physical Exam Vital Signs: BMI result Body Mass Index 34.3 Const General: cooperative, no acute distress, well developed and well groomed Nutritional Appearance: well nourished and obese Orientation/consciousness: oriented to person, oriented to place and oriented to time Limitations: No language barrier HEENT Head: Yes normocephalic and Yes atraumatic Eyes General: appearance normal, both eyes and all related structures Pupils: Equal, round and reactive pupils present Neck Neck: Yes normal visual inspection and Yes no lymphadenopathy Thyroid: Thyroid normal Resp Effort & Inspection: normal respiratory effort and able to speak in complete sentences Auscultation: clear to auscultation bilaterally Cardio Rate: regular rate Rhythm: regular rhythm Heart sounds: Normal, physiologic split S2 sound present Peripheral pulses: radial pulses present and posterior tibial pulses present GI Other: Abdomen not visualize due to limitation of clothing Inspection: No distended, No Abdominal panniculus present and Yes obesity Palpation (GI): Soft to palpation, nontender, no guarding, not rigid and No hepatosplenomegaly present Percussion: Yes normal to percussion Auscultation: normal bowel sounds Rectal Exam - Female: deferred Skin General skin exam: no rashes or lesions noted, turgor normal, skin not dry, no jaundice, No spider nevi and no striae Rashes: no rashes Nails: normal Neuro General: oriented to person, oriented to place and oriented to time Cranial nerves: Yes Equal, round and reactive pupils present and Yes Normal hearing present Speech: No Abnormal speech present Extrem General: Yes normal to inspection, No clubbing, No cyanosis and No edema Psych Appearance: grossly normal and well kempt Mental Status: mental status grossly normal Speech and movement: Normal speech and movement present Affect: normal affect Attitude: cooperative Thought process: Normal thought process present and not confabulating Thought content: Normal thought content present Insight: Limited insight present (Psych) Judgement: Limited judgement present (Psych) Assessment & Plan Assessment & Plan (1) Pre-op examination: Code(s): Z01.818 - Encounter for other preprocedural examination Category: Medical (2) Diarrhea: Code(s): R19.7 - Diarrhea, unspecified Category: Medical Qualifiers: Diarrhea type: unspecified type Qualified Code(s): R19.7 - Diarrhea, unspecified Plan This is her first colonoscopy. She has had a couple of years of diarrhea. She has a couple of years of watery diarrhea, 2-3 times a day not r/t eating. Controlling with imodium q2-3 days. She was stared on a lot of psych meds (lithium) since the onset of the diarrhea. No FHX of similar diarrheal sx. Her insurance was not paying for imodium - I will send it to see if this can be rendered under insurance. She denies any cardiac or respiratory problems. No ID problems. There are no prior problems with anesthesia or sedation. There is no known FHX of crc or polyps. Reassured her that there is no problem with using Imodium fear 4 times a week to control her diarrhea, however I would like to exclude any other reversible cause s before we call this IBS which should be a diagnosis of exclusion. With that in mind will test her for food allergy, IBD, and pancreatic insufficiency. Return office visit in 6 weeks Orders: Orders Transglutaminase IgA Today R19.7 - Diarrhea, unspecified, Z01.818 - Encounter for other preprocedural examination Transglutaminase Ab IgG Today R19.7 - Diarrhea, unspecified, Z01.818 - Encounter for other preprocedural examination Pancreatic Elastase-1 Today R19.7 - Diarrhea, unspecified, Z01.818 - Encounter for other preprocedural examination Colonoscopy - GI Use Only Today Z01.818 - Encounter for other preprocedural examination Rast Allergen Today R19.7 - Diarrhea, unspecified, Z01.818 - Encounter for other preprocedural examination C Reactive Protein Today R19.7 - Diarrhea, unspecified, Z01.818 - Encounter for other preprocedural examination Calprotectin, Fecal Today R19.7 - Diarrhea, unspecified, Z01.818 - Encounter for other preprocedural examination Medications: New sodium,potassium,mag sulfates 17.5-3.13-1.6 gram (Suprep Bowel Prep Kit) 480 mL orally; FOR COLONOSCOPY PREP 354 mL 0RF loperamide (Imodium A-D) 2 mg PO BID PRN 60 caps 3RF loose stool R19.7 - Diarrhea, unspecified Coding Level of Care Code New Pt Level 3 (16901) Diagnoses Pre-op examination Z01.818 Diarrhea, unspecified type R19.7 Diarrhea type: unspecified type
== END 2024-07-26 09:53 | disposition home or self-care (01) ==
PROVIDERS: PCP Internal Medicine; Visit Provider Nurse Practitioner
DX: R19.7 Diarrhea, unspecified (principal); Z01.818 Encounter for other preprocedural examination; Z12.11 Encounter for screening for malignant neoplasm of colon
CPT/HCPCS: 99203

== ENCOUNTER 2024-07-26 09:08 | Outpatient (REF) | payer MEDICARE, MEDICAID, SELFPAY ==
[2024-07-27 22:18] LABS: Transglutaminase Ab IgG <1.0 U/mL; Transglutaminase IgA <1.0 U/mL
== END 2024-07-26 09:09 | disposition home or self-care (01) ==
LOC: HO.LAB 09:08
PROVIDERS: PCP Internal Medicine; Visit Provider Nurse Practitioner
DX: Z01.818 Encounter for other preprocedural examination (principal); R19.7 Diarrhea, unspecified
CPT/HCPCS: 36415; 86003; 86140; 86364; 99202

== ENCOUNTER 2024-07-26 13:47 | Outpatient (AMB) | payer MEDICARE, MEDICAID, SELFPAY ==
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
[2024-07-26 13:57] VITALS: BP 124/66; PULSE 69; O2SAT 96; BMI 34.8
== END 2024-07-26 16:09 | disposition home or self-care (01) ==
PROVIDERS: PCP Internal Medicine; Visit Provider Internal Medicine
DX: Z01.818 Encounter for other preprocedural examination (principal); M79.672 Pain in left foot; R19.7 Diarrhea, unspecified
CPT/HCPCS: 99214; G2211

== ENCOUNTER 2024-07-27 11:29 | Outpatient (REF) | payer MEDICARE, MEDICAID, SELFPAY ==
[2024-07-27 13:36] LABS: Estimated Average Glucose 111 mg/dL; Hemoglobin A1C 123.7204 umol/L; Hemoglobin A1c % 5.5 % (<6.0)
[2024-07-27 13:46] LABS: Lithium 0.79 mmol/L (0.60-1.20)
== END 2024-07-27 11:30 | disposition home or self-care (01) ==
LOC: HO.LAB 11:29
PROVIDERS: PCP Internal Medicine; Visit Provider Psychiatry & Neurology Psychiatry
DX: R73.9 Hyperglycemia, unspecified (principal); F25.0 Schizoaffective disorder, bipolar type
CPT/HCPCS: 36415; 80178; 83036; 99212

== ENCOUNTER 2024-07-27 11:29 | Outpatient (AMB) | payer MEDICARE, MEDICAID, SELFPAY ==
--- OUTSIDE RECORDS SUMMARY | 2024-07-27 11:31 | XMS_ITS | Continuity of Care Document ---
Author Organization [facility] Address [address] [place] [id number]- Care Team Providers Care Decay Control Operator Name Role Phone Carlyle GAN, Bashir Laws Primary Care Physic shadi Encounter [facility] Date(s): 06/21/24 - 07/21/24 [facility] [address] [place], [place] [address] Attending Physician: AdmNorberto keys Admitting Physician: AdmtrNorberto Referring Physician: Admtr, ArAlicia Allergies, Adverse Reactions, Alerts Substance Reaction [...] 04/05/23 22:35:00 EDT, Route to Pharmacy Electronically, [facility], Partial fill upon patient [...] Name: Beatrice De La Paz RN Position: [facility] AMB Nurse Member Role: Primary Care Nurse Name: Carlyle GAN, Bashir Laws Position: Reference Physician Member Role: PCP Address: Address: [address] [place] [address]- Name: Elvi Cerrato RN Position: S RN Member Role: Primary Care Nurse Care Team Related Persons Name: RAJAN CHRISTENSEN Address: home [address] [place] [address] Name: LORENZO DUFF Address: home [address] [place] [address]
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
== END 2024-07-27 16:00 | disposition home or self-care (01) ==
LOC: HO.HOP 11:29
PROVIDERS: PCP Internal Medicine; Visit Provider Psychiatry & Neurology Psychiatry
DX: F25.0 Schizoaffective disorder, bipolar type (principal)
CPT/HCPCS: 99214

== ENCOUNTER 2024-07-29 11:51 | Outpatient (REF) | payer MEDICARE, MEDICAID, SELFPAY ==
[2024-08-06 22:48] LABS: Calprotectin, Fecal 24 mcg/g
== END 2024-07-29 11:52 | disposition home or self-care (01) ==
LOC: HO.LNP 11:51
PROVIDERS: Visit Provider Nurse Practitioner
DX: Z01.818 Encounter for other preprocedural examination (principal); R19.7 Diarrhea, unspecified
CPT/HCPCS: 83993

== ENCOUNTER 2024-08-26 06:01 | Day surgery (SDC) | payer MEDICARE, MEDICAID, SELFPAY ==
[2024-08-26 06:21] VITALS: BP 144/64; PULSE 70; RESP 16; TEMP 36.4; O2SAT 96; BMI 31.0
[2024-08-26 06:46] LABS: Appearance Urine Clear; Color Urine Yellow; Glucose Urine UA Negative (Negative); Leukocyte Esterase Urine Trace (Negative); Nitrite Urine Negative (Negative); PH 5.5 (5.0-9.0); Specific Gravity - Urine 1.025 (1.005-1.025); UMIC TRIGGER UACC YES; Urine Blood Negative (Negative); Urine Ketones Negative (Negative); Urine Protein Negative (Neg-Trace)
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
[2024-08-26 06:50] LABS: Bacteria Urine None Seen (None Seen); Hyaline Casts Urine 0-2 /LPF (0-2); RBC Urine 0-2 /HPF (0-2); Squamous Epithelial Cell Urine 0-2 /HPF (0-2); WBC Urine 0-5 /HPF (0-5)
[2024-08-26] MEDS: Lactated Ringers 1,000 ML 50 ML IVCONT (06:53)
--- NOTE | 2024-08-26 06:57 | MHC.SHP ---
Pre-Procedural Eval Section A - 24 Hr Update-Section A only Date of Service: 08/26/24 The patient is an INPATIENT: No Section B - Complete if H&P > 30 days Chief Complaint: Major depressive disorder, recurrent, severe with Details of Present Illness: recurrent dep with paranoia no new medical concerns ? urinary sx Medical History: Significant History History of Previous Operations: Relevant previous surgery/procedure and date(s) (ect) Allergies: Allergies Allergy/AdvReac Type Severity Reaction Status Date / Time Sulfa (Sulfonamide Allergy Mild UNKNOWN Verified 07/26/24 14:37 Antibiotics) Review of Systems Sugical H&P ROS: Negative: Cardiovascular and Respiratory and Yes, Specify: Neurological (working attn difficulty st memory ), Psychiatric (paranoia depression improved) and Genitourinary (freequency) Exam Surgical H&P Exam: Normal: Heart (rr), Normal: Lungs (clear) and Normal: Neurological (no movement) Exam Comment: 144/64 Plan Diagnosis/Plan: Unchanged I have reviewed the history and physical and performed a pertinent physical examination on my patient. No changes have occurred unless specified. Time Spent With Patient Time: Total time managing care of this patient today ____ minutes.
--- NOTE | 2024-08-26 07:03 | HO.ECTPROC ---
ECT Procedure Note Diagnosis/Treatment Date of Service: 08/26/24 Diagnosis: Schizoaffective Disorder Previous ECT Date: 07/15/24 Treatment: Maintenance Interval Clinical Notes: pt wishes to cont ect mood ok no si generally ok ongoing PI Time: Total time managing care of this patient today ____ minutes. ECT Settings Device: THYMATRON DGx Electrode Placement: Bifrontal Program/Pulse Width: 0.50 Energy Percent: 100 Seizure Duration By EEG (in seconds): 61 Medications Administration General Anesthetic: Etomidate (16) Muscle Relaxant: Succinylcholine (100) Ancillary Medications Analgesics: Torodol - Pre ECT Anti-emetics: Zofran - Pre ECT Airway Management Airway Management: Bag Mask Ventilation Treatment Recommendations No Changes Recommended: No change Program/Pulse Width: 0.50 Notes: on lithium held prior to ect luvox vyraylar Pt Tolerated Procedure w/o Issue: Yes
[2024-08-26 07:20] VITALS: BP 121/44; PULSE 52; RESP 19; TEMP 36.8; O2SAT 92
[2024-08-26 07:25] VITALS: BP 121/62; PULSE 54; RESP 12; O2SAT 99
[2024-08-26 07:30] VITALS: BP 117/61; PULSE 60; RESP 12; O2SAT 97
[2024-08-26 07:35] VITALS: BP 116/47; PULSE 57; RESP 19; O2SAT 94
[2024-08-26 07:50] VITALS: BP 114/56; PULSE 55; RESP 20; TEMP 36.8; O2SAT 96
== END 2024-08-26 08:27 | disposition home or self-care (01) ==
PROVIDERS: PCP Internal Medicine; Visit Provider Psychiatry & Neurology Psychiatry
PROC: (CPT 90870; principal; 2024-08-26 07:30)
DX: F25.0 Schizoaffective disorder, bipolar type (principal); E78.00 Pure hypercholesterolemia, unspecified; E03.9 Hypothyroidism, unspecified; K76.9 Liver disease, unspecified; Z79.899 Other long term (current) drug therapy; Z87.891 Personal history of nicotine dependence; Z98.890 Other specified postprocedural states; Z88.2 Allergy status to sulfonamides
CPT/HCPCS: 81001; 90870; J0330; J1885; J2405

== ENCOUNTER → 2024-08-26 06:01 | Outpatient (BNV) | payer MEDICARE, MEDICAID, SELFPAY | PROVIDERS: PCP Internal Medicine; Visit Provider Psychiatry & Neurology Psychiatry | DX: F33.3 Major depressive disorder, recurrent, severe with psychotic symptoms (principal) | CPT/HCPCS: 90870 ==

== ENCOUNTER 2024-08-31 10:42 | Outpatient (AMB) | payer MEDICARE, MEDICAID, SELFPAY ==
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
== END 2024-08-31 12:37 | disposition home or self-care (01) ==
LOC: HO.HOP 10:42
PROVIDERS: PCP Internal Medicine; Visit Provider Psychiatry & Neurology Psychiatry
DX: F25.0 Schizoaffective disorder, bipolar type (principal)
CPT/HCPCS: 99214

== ENCOUNTER 2024-08-31 10:42 | Outpatient (REF) | payer MEDICARE, MEDICAID, SELFPAY ==
[2024-08-31 11:56] LABS: MANUAL DIFF FLAG NO
[2024-08-31 12:11] LABS: Basophils Absolute Auto 0.1 X10*3/uL (0.0-0.2); Basophils Percent Auto 0.8 % (0-2); Eosinophils Absolute Auto 0.1 X10*3/uL (0.0-0.4); Eosinophils Percent Auto 1.8 % (0-4); Hematocrit 43.6 % (37.0-47.0); Hemoglobin 14.1 g/dl (12.0-16.0); Imm Gran Abs Auto 0.03 X10*3/uL (0.00-0.03); Imm Gran Pct Auto 0.4 % (0.0-0.4); Lymphocytes Absolute Auto 1.2 X10*3/uL (1.2-4.9); Lymphocytes Percent Auto 14.6 % (20-40); Mean Corpuscular HGB Conc 32.3 g/dl (31.0-35.0); Mean Corpuscular Volume 95.8 fL (80.0-98.0); Monocytes Absolute Auto 0.4 X10*3/uL (0.1-1.2); Monocytes Percent Auto 5.6 % (2-11); Neutrophils Absolute Auto 6.1 x10*3/uL (2.0-8.3); Neutrophils Percent Auto 76.8 % (45-73); Platelet Count 258 X10*3/uL (160-400); Red Blood Count 4.55 X10*6/uL (4.20-5.50); Red Cell Distribution Width 12.8 % (11.0-16.0); White Blood Count 7.9 X10*3/uL (4.8-10.8)
[2024-08-31 12:36] LABS: Lithium 1.22 mmol/L (0.60-1.20)
[2024-08-31 12:37] LABS: Alanine Aminotransferase 24 U/L (0-31); Alkaline Phosphatase 106 U/L (39-117); Anion Gap 11 (12-20); Aspartate Amino Transferase 25 U/L (5-31); Bilirubin Total 0.6 mg/dL (0.0-1.0); Blood Urea Nitrogen 13 mg/dL (9-16); Calcium 10.6 mg/dL (8.4-10.2); Carbon Dioxide 30 mmol/L (22-29); Chloride 104 mmol/L (96-108); Estimated Glomerular Filt Rate > 60; Glucose Random 102 mg/dL (60-115); Potassium 4.7 mmol/L (3.3-5.1); Sodium 140 mmol/L (135-145); Total Protein 8.3 g/dL (6.5-8.0)
[2024-09-05 08:52] LABS: Clozapine (Clozaril) <10 mcg/L; Norclozapine <10 mcg/L (25-400)
== END 2024-08-31 10:43 | disposition home or self-care (01) ==
LOC: HO.LAB 10:42
PROVIDERS: PCP Internal Medicine; Visit Provider Psychiatry & Neurology Psychiatry
DX: Z79.899 Other long term (current) drug therapy (principal); R19.7 Diarrhea, unspecified; F31.77 Bipolar disorder, in partial remission, most recent episode mixed; F25.0 Schizoaffective disorder, bipolar type; R73.9 Hyperglycemia, unspecified
CPT/HCPCS: 36415; 80053; 80159; 80178; 85025; 99212

== ENCOUNTER 2024-09-02 09:37 | Outpatient (AMB) | payer MEDICARE, MEDICAID, SELFPAY ==
--- NOTE | 2024-09-02 09:49 | A.OFFVIS_ITS ---
Vital Signs 09/02/24 09:52 Height 5 ft 3 in Weight 192 lb 3.889 oz BMI 34.1 BP 117/56 L Blood Pressure Location Rt brachial Position Sitting Intake Visit Reasons: 6 week f/u Intake Note: Patient in office today in follow up of labs and diarrhea. CC: Patient states that she continues to have diarrhea but not as much as before. Denies any new GI concerns today. 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 She has had a couple of years of diarrhea. She has a couple of years of watery diarrhea, 2-3 times a day not r/t eating. Controlling with imodium q2-3 days. She was stared on a lot of psych meds (lithium) since the onset of the diarrhea. No FHX of similar diarrheal sx. Her insurance was not paying for imodium - I will send it to see if this can be rendered under insurance. She denies any cardiac or respiratory problems. No ID problems. There are no prior problems with anesthesia or sedation. There is no known FHX of crc or polyps. Reassured her that there is no problem with using Imodium fear 4 times a week to control her diarrhea, however I would like to exclude any other reversible causes before we call this IBS which should be a diagnosis of exclusion. With that in mind will test her for food allergy, IBD, and pancreatic insufficiency. Return office visit in 6 weeks Orders: Orders Transglutaminase IgA Today R19.7 - Diarrhea, unspecified, Z01.818 - Encounter for other preprocedural examination Transglutaminase Ab IgG Today R19.7 - Diarrhea, unspecified, Z01.818 - Encounter for other preprocedural examination Pancreatic Elastase-1 Today R19.7 - Diarrhea, unspecified, Z01.818 - Encounter for other preprocedural examination Colonoscopy - GI Use Only Today Z01.818 - Encounter for other preprocedural examination Rast Allergen Today R19.7 - Diarrhea, unspecified, Z01.818 - Encounter for other preprocedural examination C Reactive Protein Today R19.7 - Diarrhea, unspecified, Z01.818 - Encounter for other preprocedural examination Calprotectin, Fecal Today R19.7 - Diarrhea, unspecified, Z01.818 - Encounter for other preprocedural examination Medications: New sodium,potassium,mag sulfates 17.5-3.13-1.6 gram (Suprep Bowel Prep Kit) 480 mL orally; FOR COLONOSCOPY PREP 354 mL 0RF loperamide (Imodium A-D) 2 mg PO BID PRN 60 caps 3RF loose stool R19.7 - Diarrhea, unspecified LABS: Laboratory Tests 07/26/24 07/28/24 10:47 09:00 C-Reactive Protein 0.20 Stool Calprotectin 24 Tiss Transglutamin IgG <1.0 Tiss Transglutamin IgA <1.0 RAST REPORT SHOWS NO SIGNIFICANT FOOD ALLERGIES COLONOSCOPY IN december TODAY'S VISIT She is doing very well on the loperimide! She is a little dizzy which she attributes to changing her psych meds around. At this point she is satisfied with her GI regimen. She already has an appointment after her colonoscopy we will keep this as her next visit. [facility] Medical History (Updated 11/08/24 @ 09:56 by DEX Silver) Pre-op examination Well woman exam Left foot pain Preoperative clearance Hip fracture requiring operative repair detention current use of clozapine Hypercholesterolemia Hypothyroid Liver laceration Liver problem Schizoaffective disorder, bipolar type Depression Elevated cholesterol Surgical History S/P foot surgery, left History of surgery on lower extremity History of hip replacement History of tracheostomy History of hip surgery Status post aortic coarctation stent placement H/O rhinoplasty Family History Mother No problems noted. Father No problems noted. Social History Housing: House Are you a primary care transition coordinator to a significant other at home: No Do you presently have visiting nurse or other home services: No Alcohol intake: never Patient Tobacco Use Status: Former Tobacco user Tobacco use type: Cigarette e-Cigarette/Vaping Use: Never Used Second Hand Smoke Exposure: No service: No Current occupational status: disabled Cognitive needs: No Hearing needs: No Vision needs: Yes (Glasses) Female Reproductive History Menstrual Age of Menarche: 10 Review of Systems Const Denies fatigue, Denies fever(s), Denies night sweats, Denies poor appetite and Denies weight loss ENT Reports Normal hearing present, Denies dental pain, Denies dysphagia, Denies hearing loss, Denies mouth pain, Denies odynophagia, Denies throat swelling, Denies tongue swelling and Reports other (Dentition adequate) Card Reports no additional complaints Resp Reports no additional complaints GI Details: Denies abdominal pain, Denies melena, Denies bloating, Denies hematochezia, Denies constipation, Denies GI cramping, Denies dysphagia, Denies excessive flatus, Denies early satiety, Denies heartburn, Reports diarrhea, Denies nausea, Denies odynophagia, Denies vomiting and Denies hematemesis Skin/Breast Denies pruritus, Denies lesions, Denies rash and Denies jaundice Neuro Reports Normal hearing present and Denies Abnormal speech present Endo Denies fatigue Aller/Immun Denies throat swelling and Denies tongue swelling Physical Exam Vital Signs: Last Vital Signs BP 117/56 L 09/02/24 09:52 BMI result Body Mass Index 34.1 Const General: cooperative, no acute distress, well developed and well groomed Nutritional Appearance: well nourished and obese Orientation/consciousness: oriented to person, oriented to place and oriented to time Limitations: No language barrier HEENT Head: Yes normocephalic and Yes atraumatic Eyes General: appearance normal, both eyes and all related structures Pupils: Equal, round and reactive pupils present Neck Neck: Yes normal visual inspection and Yes no lymphadenopathy Thyroid: Thyroid normal Resp Effort & Inspection: normal respiratory effort and able to speak in complete sentences Auscultation: clear to auscultation bilaterally Cardio Rate: regular rate Rhythm: regular rhythm Heart sounds: Normal, physiologic split S2 sound present Peripheral pulses: radial pulses present and posterior tibial pulses present GI Inspection: No distended, Yes Abdominal panniculus present and Yes obesity Palpation (GI): Soft to palpation, nontender, no guarding, not rigid and No hepatosplenomegaly present Percussion: Yes normal to percussion Auscultation: normal bowel sounds Rectal Exam - Female: deferred Skin General skin exam: no rashes or lesions noted, turgor normal, skin not dry, no jaundice, No spider nevi and no striae Rashes: no rashes Nails: normal Neuro General: oriented to person, oriented to place and oriented to time Cranial nerves: Yes Equal, round and reactive pupils present and Yes Normal hearing present Speech: No Abnormal speech present Extrem General: Yes normal to inspection, No clubbing, No cyanosis and No edema Psych Appearance: grossly normal and well kempt Mental Status: mental status grossly normal Speech and movement: Normal speech and movement present Affect: normal affect Attitude: cooperative Thought process: Normal thought process present and not confabulating Thought content: Normal thought content present Insight: Limited insight present (Psych) Judgement: Limited judgement present (Psych) Results Reviewed Results Reviewed: Laboratory Tests 07/26/24 07/28/24 10:47 09:00 C-Reactive Protein 0.20 Stool Calprotectin 24 Tiss Transglutamin IgG <1.0 Tiss Transglutamin IgA <1.0 RAST REPORT SHOWS NO SIGNIFICANT FOOD ALLERGIES Assessment & Plan Assessment & Plan (1) Irritable bowel syndrome with diarrhea: Code(s): K58.0 - Irritable bowel syndrome with diarrhea Category: Medical Plan She is doing very well on the loperimide! She is a little dizzy which she attributes to changing her psych meds around. At this point she is satisfied with her GI regimen. She already has an appointment after her colonoscopy we will keep this as her next visit COLONOSCOPY IN december Coding Level of Care Code Est Pt Level 3 (91038) Diagnoses Irritable bowel syndrome with diarrhea K58.0
[2024-09-02 09:52] VITALS: BP 117/56; BMI 34.1
== END 2024-09-02 10:42 | disposition home or self-care (01) ==
PROVIDERS: PCP Internal Medicine; Visit Provider Nurse Practitioner
DX: K58.0 Irritable bowel syndrome with diarrhea (principal)
CPT/HCPCS: 99213

== ENCOUNTER → 2024-09-02 09:37 | Outpatient (BNVA) | payer MEDICARE, MEDICAID, SELFPAY | PROVIDERS: PCP Internal Medicine; Visit Provider Nurse Practitioner | DX: Z01.818 Encounter for other preprocedural examination (principal); R19.7 Diarrhea, unspecified | CPT/HCPCS: 99212 ==

== ENCOUNTER 2024-09-20 14:21 | Outpatient (AMB) | payer MEDICARE, MEDICAID, SELFPAY ==
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
[2024-09-20 14:23] VITALS: BP 120/62; PULSE 70; O2SAT 97; BMI 34.5
== END 2024-09-20 14:47 | disposition home or self-care (01) ==
PROVIDERS: PCP Internal Medicine; Visit Provider Physician Assistant
DX: Z13.9 Encounter for screening, unspecified (principal); R33.9 Retention of urine, unspecified

== ENCOUNTER → 2024-09-20 14:21 | Outpatient (BNVA) | payer MEDICARE, MEDICAID, SELFPAY | PROVIDERS: PCP Internal Medicine; Visit Provider Physician Assistant | DX: R33.9 Retention of urine, unspecified (principal) | CPT/HCPCS: 81003; 99212 ==

== ENCOUNTER 2024-09-30 12:57 | Outpatient (AMB) | payer MEDICARE, MEDICAID, SELFPAY ==
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
== END 2024-09-30 17:05 | disposition home or self-care (01) ==
LOC: HO.HOP 12:58
PROVIDERS: PCP Internal Medicine; Visit Provider Psychiatry & Neurology Psychiatry
DX: F25.0 Schizoaffective disorder, bipolar type (principal); Z79.899 Other long term (current) drug therapy
CPT/HCPCS: 99214

== ENCOUNTER → 2024-09-30 12:57 | Outpatient (BNVA) | payer MEDICARE, MEDICAID, SELFPAY | PROVIDERS: PCP Internal Medicine; Visit Provider Psychiatry & Neurology Psychiatry | DX: F25.0 Schizoaffective disorder, bipolar type (principal); F32.A Depression, unspecified; Z71.89 Other specified counseling; Z79.899 Other long term (current) drug therapy | CPT/HCPCS: 99212 ==

== ENCOUNTER 2024-10-03 15:06 | Outpatient (AMB) | payer MEDICARE, MEDICAID, SELFPAY ==
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
[2024-10-03 15:15] VITALS: BP 110/90; PULSE 62; O2SAT 99; BMI 33.9
== END 2024-10-03 16:17 | disposition home or self-care (01) ==
PROVIDERS: PCP Internal Medicine; Visit Provider Internal Medicine
DX: N92.0 Excessive and frequent menstruation with regular cycle (principal)

== ENCOUNTER → 2024-10-03 15:06 | Outpatient (BNVA) | payer MEDICARE, MEDICAID, SELFPAY | PROVIDERS: PCP Internal Medicine; Visit Provider Internal Medicine | DX: N92.0 Excessive and frequent menstruation with regular cycle (principal) | CPT/HCPCS: 99212 ==

== ENCOUNTER 2024-10-05 06:07 | Day surgery (SDC) | payer MEDICARE, MEDICAID, SELFPAY ==
[2024-10-05] VITALS (7 sets, daily range): BP systolic 109–146; BP diastolic 55–69; PULSE 59–81; RESP 14–16; TEMP 36–36.6; O2SAT 95–99; BMI 32.8
[2024-10-05] MEDS: Lactated Ringers 1,000 ML 100 ML IVCONT (06:50)
--- NOTE | 2024-10-05 06:59 | MHC.SHP ---
Pre-Procedural Eval Section A - 24 Hr Update-Section A only Date of Service: 10/05/24 The patient is an INPATIENT: No Section B - Complete if H&P > 30 days Chief Complaint: depression paranoia Details of Present Illness: schizoaffective dx does well generally with ect Medical History: Significant History History of Previous Operations: Relevant previous surgery/procedure and date(s) (ect) Allergies: Allergies Allergy/AdvReac Type Severity Reaction Status Date / Time Sulfa (Sulfonamide Allergy Mild UNKNOWN Verified 10/03/24 15:15 Antibiotics) Review of Systems Sugical H&P ROS: Negative: Cardiovascular, Respiratory and Genitourinary and Yes, Specify: Neurological (difficulty st memory ) and Psychiatric (paranoia depression improved) Exam Surgical H&P Exam: Normal: Heart (rr), Normal: Lungs (clear) and Normal: Neurological (no movement) Exam Comment: 146/69 p 81 Plan Diagnosis/Plan: Unchanged I have reviewed the history and physical and performed a pertinent physical examination on my patient. No changes have occurred unless specified. Time Spent With Patient Time: Total time managing care of this patient today ____ minutes.
--- NOTE | 2024-10-05 07:22 | HO.ECTPROC ---
ECT Procedure Note Diagnosis/Treatment Date of Service: 10/05/24 Diagnosis: Schizoaffective Disorder Previous ECT Date: 08/26/24 Treatment: Maintenance Interval Clinical Notes: pt with some PI in general has been doing ok less depressed no si feels ect helpful stopped namenda sec to dizziness Time: Total time managing care of this patient today ____ minutes. ECT Settings Device: THYMATRON DGx Electrode Placement: Bifrontal Program/Pulse Width: 0.25 Energy Percent: 100 Seizure Duration By EEG (in seconds): 49 Medications Administration General Anesthetic: Etomidate (16) Muscle Relaxant: Succinylcholine (100) Treatment Recommendations Notes: LOWER ETOMIDATE TO 14 MG WAS OVERLY SEDATED Pt Tolerated Procedure w/o Issue: Yes
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
--- NOTE | 2024-10-05 08:08 | HO.POSTANES ---
Post Anesthesia Evaluation Post Anesthesia Evaluation Date of Service: 10/05/24 Vital Signs: Vital Signs Temp Pulse Resp BP Pulse Ox O2 Del Method O2 Flow Rate 10/05/24 08:04 97.4 F 61 14 121/60 97 Room Air 10/05/24 07:50 61 14 121/55 L 95 Room Air 10/05/24 07:35 61 14 116/66 99 Nasal Cannula 2 10/05/24 07:30 61 14 121/66 99 Nasal Cannula 2 10/05/24 07:25 59 14 113/66 99 Nasal Cannula 2 10/05/24 07:20 97.9 F 64 14 109/64 99 Nasal Cannula 2 10/05/24 06:27 96.8 F 81 16 146/69 H 98 Room Air Anesthesia: General Mental Status: Awake Pain Control: Satisfactory Nausea/Vomiting: None Hydration: Adequate Anesthesia-Related Issues: No Anes. Related Issues
== END 2024-10-05 08:33 | disposition home or self-care (01) ==
PROVIDERS: PCP Internal Medicine; Visit Provider Psychiatry & Neurology Psychiatry
PROC: (CPT 90870; principal; 2024-10-05 08:00)
DX: F25.0 Schizoaffective disorder, bipolar type (principal); E78.00 Pure hypercholesterolemia, unspecified; E03.9 Hypothyroidism, unspecified; K76.9 Liver disease, unspecified; Z79.899 Other long term (current) drug therapy; Z98.890 Other specified postprocedural states; Z88.2 Allergy status to sulfonamides; Z87.891 Personal history of nicotine dependence
CPT/HCPCS: 90870; J0330; J1885; J2405

== ENCOUNTER → 2024-10-05 06:07 | Outpatient (BNV) | payer MEDICARE, MEDICAID, SELFPAY | PROVIDERS: PCP Internal Medicine; Visit Provider Psychiatry & Neurology Psychiatry | DX: F33.3 Major depressive disorder, recurrent, severe with psychotic symptoms (principal) | CPT/HCPCS: 90870 ==

== ENCOUNTER 2024-10-11 14:35 | Outpatient (AMB) | payer MEDICARE, MEDICAID, SELFPAY ==
[2024-10-11 14:40] VITALS: BP 126/78
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
== END 2024-10-11 15:18 | disposition home or self-care (01) ==
PROVIDERS: PCP Internal Medicine; Visit Provider Obstetrics & Gynecology
DX: N95.0 Postmenopausal bleeding (principal)
CPT/HCPCS: 99213

== ENCOUNTER → 2024-10-11 14:35 | Outpatient (BNVA) | payer MEDICARE, MEDICAID, SELFPAY | PROVIDERS: PCP Internal Medicine; Visit Provider Obstetrics & Gynecology | DX: N95.0 Postmenopausal bleeding (principal) | CPT/HCPCS: 99212 ==

== ENCOUNTER 2024-10-24 13:36 | Outpatient (REF) | payer MEDICARE, MEDICAID, SELFPAY | END 2024-10-24 13:37 | disposition home or self-care (01) | LOC: HO.US 13:36 | PROVIDERS: PCP Internal Medicine; Visit Provider Obstetrics & Gynecology | DX: N95.0 Postmenopausal bleeding (principal) | CPT/HCPCS: 76830; 76856 ==

== ENCOUNTER 2024-10-25 14:53 | Outpatient (AMB) | payer MEDICARE, MEDICAID, SELFPAY ==
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
[2024-10-25 14:56] VITALS: BP 132/72; PULSE 74; O2SAT 97; BMI 35.0
== END 2024-10-25 15:55 | disposition home or self-care (01) ==
PROVIDERS: PCP Internal Medicine; Visit Provider Internal Medicine
DX: R21 Rash and other nonspecific skin eruption (principal)

== ENCOUNTER → 2024-10-25 14:53 | Outpatient (BNVA) | payer MEDICARE, MEDICAID, SELFPAY | PROVIDERS: PCP Internal Medicine; Visit Provider Internal Medicine | DX: R21 Rash and other nonspecific skin eruption (principal) | CPT/HCPCS: 99212 ==

== ENCOUNTER 2024-11-08 14:04 | Outpatient (AMB) | payer MEDICARE, MEDICAID, SELFPAY ==
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
== END 2024-11-08 15:07 | disposition home or self-care (01) ==
LOC: HO.HOP 14:04
PROVIDERS: PCP Internal Medicine; Visit Provider Psychiatry & Neurology Psychiatry
DX: F25.0 Schizoaffective disorder, bipolar type (principal)
CPT/HCPCS: 99214

== ENCOUNTER → 2024-11-08 14:04 | Outpatient (BNVA) | payer MEDICARE, MEDICAID, SELFPAY | PROVIDERS: PCP Internal Medicine; Visit Provider Psychiatry & Neurology Psychiatry | DX: F25.0 Schizoaffective disorder, bipolar type (principal) | CPT/HCPCS: 99212 ==

== ENCOUNTER 2024-12-14 05:59 | Day surgery (SDC) | payer MEDICARE, MEDICAID, SELFPAY ==
[2024-12-14] VITALS (7 sets, daily range): BP systolic 115–144; BP diastolic 50–68; PULSE 53–84; RESP 16–18; TEMP 36.7–36.9; O2SAT 96–100; BMI 31.9
--- NOTE | 2024-12-14 06:51 | HO.ANESPROP2 ---
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) Tinea pedis (Acute) Left foot pain (Acute) Shortness of breath (Acute) Hyperkalemia (Acute) Diarrhea (Acute) Palpitation (Acute) Eczema (Acute) Postmenopausal bleeding (Acute) Amenorrhea (Acute) Menopause (Acute) Complex ovarian cyst (Acute) Elevated blood pressure reading without diagnosis of hypertension (Acute) Hypercholesterolemia (Acute) Hypothyroid (Acute) Schizoaffective disorder, bipolar type (Chronic) Past Medical History Medical History (Updated 11/08/24 @ 09:56 by DEX Silver) Pre-op examination Well woman exam Left foot pain Preoperative clearance Hip 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 Father No problems noted. Family history of problems with anesthesia: No Surgical History Surgical History S/P foot surgery, left History of surgery on lower extremity History of hip replacement History of tracheostomy History of hip surgery Status post aortic coarctation stent placement H/O rhinoplasty History of Problems with Anesthesia: No Social History Social History Housing: House Are you a primary nurse wound care to a significant other at home: No Do you presently have visiting nurse or other home services: No Alcohol intake: never Patient Tobacco Use Status: Former Tobacco user Tobacco use type: Cigarette e-Cigarette/Vaping Use: Never Used Second Hand Smoke Exposure: No Advance Directives: No Advance Directives Information Provided: Yes service: No Current occupational status: disabled Cognitive needs: No Hearing needs: No Vision needs: Yes (Glasses) Meds Allergies Allergy/AdvReac Type Severity Reaction Status Date / Time Sulfa (Sulfonamide Allergy Mild UNKNOWN Verified 11/08/24 08:44 Antibiotics) Active Medications: Current Medications Lactated Ringer's (Lr) 1,000 mls @ 50 mls/hr IVCONT .Q20H KEHINDE Home Medications ?Medication ?Instructions ?Recorded ?Confirmed ?Last Taken ?Type cholecalciferol (vitamin D3) 25 25 mcg PO DAILY 06/23/23 11/08/24 Unknown History mcg (1,000 unit) capsule Exam Height,Weight and Vital Signs: Height 5 ft 3 in Weight 81.647 kg Last Vital Signs Temp 98.1 F 12/14/24 06:37 Pulse 84 12/14/24 06:37 Resp 18 12/14/24 06:37 BP 144/68 H 12/14/24 06:37 Pulse Ox 96 12/14/24 06:37 O2 Del Method Room Air 12/14/24 06:37 Airway Mallampati Class: II TM Dist: >3cm Neck ROM: Full Heart: rrr Lungs: cta Assessment and Plan Assessment Anesthesia Assessment: Anesthesia Plan Discussed and Chart Reviewed Final Anesthetic Review Family History of Problems with Anesthesia: No History of Problems with Anesthesia: No NPO: Yes ASA Class: III Final Preanesthetic Review: No Changes in Pt Med Stat, Meds/Allgs Chart Reviewed and Consent Obtained/Reviewed Patient Risk: Low Procedure Risk: Intermediate Anesthetic Plan Anesthetic Plan: GA Disposition: Standard PACU
[2024-12-14] MEDS: Lactated Ringers 1,000 ML 50 ML IVCONT (07:00)
--- NOTE | 2024-12-14 07:10 | MHC.SHP ---
Pre-Procedural Eval Section A - 24 Hr Update-Section A only Date of Service: 12/14/24 The patient is an INPATIENT: No Changes since office visit: No Cold of Flu in the past 2 weeks, No New Medical Problems, No Changes in Medication and No Patient answered all questions The patient has been examined within 24 hours of the surgical procedure. The History & Physical has been completed within 30 days and I have reviewed it.: Yes Section B - Complete if H&P > 30 days Chief Complaint: Major depressive disorder, recurrent, severe with Details of Present Illness: Stable mood, no new changes Relevant Family History (Specify if Yes): No Relevant Social History: None Present Medications: see Short Stay Collaborative assessment Medical History: No relevant PMH History of Previous Operations: No relevant previous surgery Allergies: Allergies Allergy/AdvReac Type Severity Reaction Status Date / Time Sulfa (Sulfonamide Allergy Mild UNKNOWN Verified 11/08/24 08:44 Antibiotics) Review of Systems Sugical H&P ROS: Negative: Constitution, Cardiovascular, Respiratory, Neurological, Psychiatric, Hem-Onc, Allergic/Immunologic, Gastrointestinal, Genitourinary, Musculoskeletal, Integumentary, Endocrine and Eyes/Ears/Nose/Throat Exam Surgical H&P Exam: Normal: HEENT, Normal: Heart, Normal: Lungs, Normal: Extremities, Normal: Abdomen, Normal: Skin and Normal: Neurological Plan Diagnosis/Plan: Unchanged I have reviewed the history and physical and performed a pertinent physical examination on my patient. No changes have occurred unless specified. Time Spent With Patient Time: Total time managing care of this patient today __15__ minutes.
--- NOTE | 2024-12-14 07:22 | HO.ECTPROC ---
ECT Procedure Note Diagnosis/Treatment Date of Service: 12/14/24 Diagnosis: Schizoaffective Disorder Treatment: Maintenance Interval Clinical Notes: The patient reported euthymia, only anxious before the procedure. No side effects with the last ECT on September. ECT done as usual, no complications, woke up well. Time: Total time managing care of this patient today ____ minutes. ECT Settings Device: THYMATRON DGx Electrode Placement: Bifrontal Program/Pulse Width: 0.50 Energy Percent: 100 Seizure Duration By EEG (in seconds): 59 By Motor Observation (in seconds): 0 Medications Administration General Anesthetic: Etomidate (16) Muscle Relaxant: Succinylcholine (100) Ancillary Medications Analgesics: Torodol - Pre ECT (15) Anti-emetics: Zofran - Pre ECT (4) Airway Management Airway Management: Bag Mask Ventilation Treatment Recommendations No Changes Recommended: No change Pt Tolerated Procedure w/o Issue: Yes
== END 2024-12-14 08:40 | disposition home or self-care (01) ==
PROVIDERS: PCP Internal Medicine; Visit Provider Psychiatry & Neurology Psychiatry
PROC: (CPT 90870; principal; 2024-12-14 07:30)
DX: F25.0 Schizoaffective disorder, bipolar type (principal); F22 Delusional disorders; E78.00 Pure hypercholesterolemia, unspecified; E03.9 Hypothyroidism, unspecified; K76.9 Liver disease, unspecified; Z79.899 Other long term (current) drug therapy; Z98.890 Other specified postprocedural states; Z88.2 Allergy status to sulfonamides; Z87.891 Personal history of nicotine dependence
CPT/HCPCS: 90870; J0330; J1596; J1805; J1885; J2405

== ENCOUNTER → 2024-12-14 05:59 | Outpatient (BNV) | payer MEDICARE, MEDICAID, SELFPAY | PROVIDERS: PCP Internal Medicine; Visit Provider Psychiatry & Neurology Psychiatry | DX: F33.2 Major depressive disorder, recurrent severe without psychotic features (principal) | CPT/HCPCS: 90870 ==

== ENCOUNTER 2024-12-20 10:25 | Outpatient (AMB) | payer MEDICARE, MEDICAID, SELFPAY ==
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
--- OUTSIDE RECORDS SUMMARY | 2024-12-20 11:19 | XMS_ITS | Clinical Summary ---
Author Organization [address] [facility] Address [address] [place] [address] Phone Care Team Providers Care Front Office Attendant Name Role Phone Bashir Tadeo MD Primary Care Provider [phone] Allergies Active Allergy Reactions Criticality Noted Date Comments Sulfa (Sulfonamide Antibiotics) 09/23 Medications Medication Sig Dispensed Refills Start Date End Date Status cariprazine (VRAYLAR) 3 mg capsule Take 2 capsules (6 mg total) by mouth 1 (one) time each day. Active cholecalciferol (VITAMIN D-3) 25 mcg (1,000 unit) tablet Take 1 tablet (1,000 Units total) by mouth 1 (one) time each day. Active clonazePAM (KlonoPIN) 0.5 mg tablet Take 1 tablet (0.5 mg total) by mouth 2 (two) times a day. Max Daily Amount: 1 mg Active donepezil ODT (ARICEPT ODT) 10 mg dispersible tablet Dissolve 1 tablet (10 mg total) on top of the tongue at bedtime. Active fluvoxaMINE (LUVOX) 100 mg tablet Take 1 tablet (100 mg total) by mouth at bedtime. Active levothyroxine (SYNTHROID, LEVOTHROID) 112 mcg tablet Take 1 tablet (112 mcg total) by mouth 1 (one) time each day. Active lithium (LITHOBID) 300 mg CR tablet Take 1 tablet (300 mg total) by mouth 2 (two) times a day. Do not crush, chew, or split. Active loperamide (IMODIUM) 2 mg capsule Take 1 capsule (2 mg total) by mouth 4 (four) times a day if needed for diarrhea. Active OLANZapine (ZyPREXA ZYDIS) 10 mg disintegrating tablet Dissolve 1 tablet (10 mg total) on top of the tongue at bedtime. Active SODIUM,POTASSIUM,MAG SULFATES ORAL Take by mouth. Active tacrolimus (PROTOPIC) 0.1 % ointment Apply topically 2 (two) times a day. 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 CT Scan [address] [place] [id number] Left foot pain; Arthritis of foot, left; 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, initial encounter ([facility]); Neuritis Discharge Disposition: Home or Self Care 10/10/2024 9:45 AM EST Office Visit Orthopedic Surgery [facility] [address] [phone] Brent Hazel DPM Arthritis of foot, left (Primary Dx); Left foot pain; 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, initial encounter ([facility]); Neuritis from Last 3 Months Immunizations Name Administration Dates Next Due Moderna SARS-CoV-2 COVID-19, mRNA, LNP-S, preservative free 09/15/2022 Social History Tobacco Use Types Packs/Day Years Used Date Smoking Tobacco: Never Assessed Sex and Gender Information Value Date Recorded Sex Assigned at Not on file Gender Identity Not on file Sexual Orientation Not on file Job Start Date Occupation Industry Not on file Not on file Not on file Last Filed Vital Signs Vital Sign Reading Time Taken Comments Blood Pressure - - Pulse - - Temperature - - Respiratory Rate - - Oxygen Saturation - - Inhaled Oxygen Concentration - - Weight 88.2 kg (194 lb 7.1 oz) 11/01/2024 10:52 AM EST Height 160 cm (5' 2.99 ) 11/01/2024 10:52 AM EST Body Mass Index 34.45 11/01/2024 10:52 AM EST Plan of Treatment Health Maintenance Due Date Last Done Comments Breast Cancer Screening 1973 Hepatitis B Vaccines (1 of 3 - 19+ 3-dose series) 1992 Cervical Cancer Screening: Pap Smear 1994 Cholesterol Screening (Lipid Panel) 10/26/2022 Colorectal Cancer Screening: Colonoscopy 10/26/2022 Depression Screening 10/26/2022 HIV Screening 10/26/2022 Hepatitis C Screening 10/26/2022 Medicare Annual Wellness Visit 10/26/2022 Social Influencers of Health Screening 10/26/2022 DTaP,Tdap,and Td Vaccines (4 - Td or Tdap) 07/19/2034 07/19/2024, 03/17/2017, 06/11/2014 Zoster Vaccines Completed 05/23/2024, 03/05/2024 COVID-19 Vaccine Completed 07/19/2024, 06/2023, 09/15/2022, Additional history exists Influenza Vaccine Completed 07/19/2024, , 09/15/2022, Additional history exists HIB Vaccines Aged Out No longer eligi ble based on patient's age to complete this topic HPV Vaccines Aged Out No longer eligi ble based on patient's age to complete this topic Hepatitis A Vaccines Aged Out No long er eligible based on patient's age to complete this topic IPV Vaccines Aged Out No longer eligi ble based on patient's age to complete this topic MMR Vaccines Aged Out No longer eligi ble based on patient's age to complete this topic Meningococcal ACWY Vaccine Aged Out N o longer eligible based on patient's age to complete this topic Pneumococcal Vaccine: Pediatrics (0 to 5 Years) and At-Risk Patients (6 to 64 Years) Aged Out No longer eligible based on patient's age to complete this topic RSV Immunization Patients Under 20 months Aged Out No longer eligible based on patient's age to complete this topic Varicella Vaccines Aged Out No longer eligible based on patient's age to complete this topic Procedures Procedure Name Priority Date/Time Associated Diagnosis Comments CT LOWER EXTREMITY WO CONTRAST LEFT Routine 10/31/2024 1:32 PM EST Left foot pain Arthritis of foot, left 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, initial encounter ([facility]) Neuritis XR FOOT 3+ VIEWS LEFT Routine 10/10/2024 10:13 AM EST Left foot pain from Last 3 Months Results * CT Lower Extremity wo Contrast Left (10/31/2024 1:32 PM EST) Anatomical Region Laterality Modality Lower Extremities Left Computed Tomog leatha 11/01/2024 10:3 3 AM EST Impressions 11/01/2024 10:44 AM EST Arthrodesis of the 1st and 2nd tarsometatarsal joints as described above. -------- FINAL REPORT -------- Dictated By: Brent Wei Dictated Date: 11/01/2024 10:33 ET Assigned Physician: Brent Wei Reviewed and Electronically Signed By: Brent Wei Signed Date: 11/01/2024 10:44 ET Workstation ID: [id number] Transcribed By: Self Edit Transcribed Date: 11/01/2024 10:33 ET Narrative 11/01/2024 10:[address] left lower extremity without contrast HISTORY: Left foot pain after surgery. COMPARISON: ??None. TECHNIQUE: Noncontrast CT was performed of the left lower extremity. ??Reformatted images were provided. DOSE: CTDIvol: 7.7mGy. ??Total exam DLP: 223.3mGy-cm FINDINGS: Arthrodesis hardware is noted at the 1st and 2nd tarsometatarsal joint. ??Hardware is intact. ??There appears to be complete bony fusion at both joints. ??The bases of the metatarsals appear well aligned. Degenerative changes of the anterior navicular bone are noted at the naviculocuneiform joints. ??Mild degenerative changes are noted throughout. ??No acute deformity. Evaluation of the soft tissues is limited on CT examination, but no significant abnormality is visualized. ??The musculature appears within normal limits. ??Minimal soft tissue edema is noted throughout. Procedure Note Brent Wei MD - 11/01/2024 CT left lower extremity without contrast HISTORY: Left foot pain after surgery. COMPARISON: None. TECHNIQUE: Noncontrast CT was performed of the left lower extremity.Reformatted images were provided. DOSE: CTDIvol: 7.7mGy. Total exam DLP: 223.3mGy-cm FINDINGS: Arthrodesis hardware is noted at the 1st and 2nd tarsometatarsal joint.Hardware is intact. There appears to be complete bony fusion at bothjoints. The bases of the metatarsals appear well aligned. Degenerative changes of the anterior navicular bone are noted at thenaviculocuneiform joints. Mild degenerative changes are noted throughout.No acute deformity. Evaluation of the soft tissues is limited on CT examination, but nosignificant abnormality is visualized. The musculature appears withinnormal limits. Minimal soft tissue edema is noted throughout. IMPRESSION: Arthrodesis of the 1st and 2nd tarsometatarsal joints as describedabove. -------- FINAL REPORT -------- Dictated By: Brent Wei Dictated Date: 11/01/2024 10:33 ET Assigned Physician: Brent Wei Reviewed and Electronically Signed By: Brent Wei Signed Date: 11/01/2024 10:44 ET Workstation ID: [id number] Transcribed By: Self Edit Transcribed Date: 11/01/2024 10:33 ET Brent Hazel DPM IMG CT PROCEDURES * XR Foot 3+ Views Left (10/10/2024 10:13 AM EST) Anatomical Region Laterality Modality Lower Extremities, Foot Left Computed Radiography Narrative 10/12/2024 8:16 AM EST Left foot 3 views Previous hardware intact fusion of the first metatarsal and second metatarsal cuneiform joints noted normal alignment no signs of hardware failure or backout Some intermetatarsal thickening of bone at Lisfranc's joint without any signs of gapping osteoarthritis noted of the intercuneiform joint first and second medial and intermediate Brent Hazel DPM IMG XR PROCEDURES from Last 3 Months Advance Directives Documents on File Type Date Recorded Patient [place] [employer] Expl anation Health Care Decision (hx) 01/16/2015 AD MONGE DIRECTIVE Health Care Decision (hx) 01/16/2015 AD MONGE DIRECTIVE Health Care Decision (hx) 01/16/2015 AD MONGE DIRECTIVE Care Teams Front Office Attendant Relationship Specialty Start Date End Date Bashir Tadeo MD [facility] [address] [place] [address] [address] [place] [address] PCP - General Internal Medicine 08/30/24
== END 2024-12-20 11:14 | disposition home or self-care (01) ==
LOC: HO.HOP 10:25
PROVIDERS: PCP Internal Medicine; Visit Provider Psychiatry & Neurology Psychiatry
DX: F25.0 Schizoaffective disorder, bipolar type (principal); R00.2 Palpitations; E03.9 Hypothyroidism, unspecified; E78.00 Pure hypercholesterolemia, unspecified; R73.9 Hyperglycemia, unspecified
CPT/HCPCS: 90833; 99213

== ENCOUNTER → 2024-12-20 10:25 | Outpatient (REF) | payer MEDICARE, MEDICAID, SELFPAY ==
--- NOTE | 2024-12-20 11:42 | ECG_ITS ---
Test Reason : R/O BIPOLAR Blood Pressure : */* mmHG Vent. Rate : 62 BPM Atrial Rate : 62 BPM P-R Int : 186 ms QRS Dur : 86 ms QT Int : 404 ms P-R-T Axes : 48 -15 35 degrees QTcB Int : 410 ms Normal sinus rhythm Possible Left atrial enlargement cannot exclude old Inferior infarct (cited on or before ; could be normal variant Abnormal ECG When compared with ECG of 15-Jul-2024 07:30, No significant change was found Referred By: Jose Carlos Alvarez Electronically Signed By: GRACIELA CLEARY
--- OUTSIDE RECORDS SUMMARY | 2024-12-20 12:50 | XMS_ITS | Clinical Summary ---
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 10/04/2024 Hip fracture requiring operative repair 10/04/20 24 Encounters Date Type Department Care Team Description 11/01/2024 11:00 AM EST Office Visit Orthopedic Surgery [facility] [address] [phone] Brent Hazel DPM Neuritis (Primary Dx); 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, initial encounter ([facility]) 10/31/2024 1:15 PM EST - 10/31/2024 11:59 PM EST Hospital Encounter [facility] CT Scan [address] [place] [phone] Left foot pain; Arthritis of foot, left; 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, initial encounter ([facility]); Neuritis Discharge Disposition: Home or Self Care 10/10/2024 9:45 AM EST Office Visit Orthopedic Surgery [facility] [address] [phone] Brent Hazel DPM Arthritis of foot, left (Primary Dx); Left foot pain; 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, initial encounter ([facility]); Neuritis from Last 3 Months Immunizations Name [...] to internal orthopedic prosthetic device, initial encounter ([facility]) Neuritis XR FOOT 3+ VIEWS LEFT Routine [...] Signed Date: 11/01/2024 10:44 ET Workstation ID: [id number] Transcribed By: Self Edit Transcribed Date: 11/01/2024 [...] Signed Date: 11/01/2024 10:44 ET Workstation ID: [id number] Transcribed By: Self Edit Transcribed Date: 11/01/2024 [...] Documents on File Type Date Recorded 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
== END ==
LOC: HO.CARD 10:25
PROVIDERS: PCP Internal Medicine; Visit Provider Psychiatry & Neurology Psychiatry
DX: F25.0 Schizoaffective disorder, bipolar type (principal); R00.2 Palpitations; E03.9 Hypothyroidism, unspecified; E78.00 Pure hypercholesterolemia, unspecified; R73.9 Hyperglycemia, unspecified
CPT/HCPCS: 93005; 99212

== ENCOUNTER → 2024-12-20 11:42 | Outpatient (BNV) | payer MEDICARE, MEDICAID, SELFPAY | PROVIDERS: PCP Internal Medicine; Visit Provider Internal Medicine | DX: R94.31 Abnormal electrocardiogram [ECG] [EKG] (principal) | CPT/HCPCS: 93010 ==

== ENCOUNTER 2024-12-23 13:50 | Outpatient (REF) | payer MEDICARE, MEDICAID, SELFPAY ==
--- OUTSIDE RECORDS SUMMARY | 2024-12-23 13:53 | XMS_ITS | Clinical Summary ---
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 10/04/2024 Hip fracture requiring operative repair 10/04/20 24 Encounters Date Type Department Care Team Description 11/01/2024 11:00 AM EST Office Visit Orthopedic Surgery [facility] [address] [phone] Brent Hazel DPM Neuritis (Primary Dx); 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, initial encounter ([facility]) 10/31/2024 1:15 PM EST - 10/31/2024 11:59 PM EST Hospital Encounter [facility] CT Scan [address] [place] [phone] Left foot pain; Arthritis of foot, left; 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, initial encounter ([facility]); Neuritis Discharge Disposition: Home or Self Care 10/10/2024 9:45 AM EST Office Visit Orthopedic Surgery [facility] [address] [phone] Brent Hazel DPM Arthritis of foot, left (Primary Dx); Left foot pain; 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, initial encounter ([facility]); Neuritis from Last 3 Months Immunizations [...] to internal orthopedic prosthetic device, initial encounter ([facility]) Neuritis XR FOOT 3+ VIEWS LEFT [...] Signed Date: 11/01/2024 10:44 ET Workstation ID: [id number] Transcribed By: Self Edit Transcribed Date: 11/01/2024 [...] Signed Date: 11/01/2024 10:44 ET Workstation ID: [id number] Transcribed By: Self Edit Transcribed Date: 11/01/2024 [...] Documents on File Type Date Recorded 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
== END 2024-12-23 13:51 | disposition home or self-care (01) ==
LOC: HO.MAMMO 13:50
PROVIDERS: PCP Internal Medicine; Visit Provider Internal Medicine
DX: Z12.31 Encounter for screening mammogram for malignant neoplasm of breast (principal)
CPT/HCPCS: 77063; 77067

== ENCOUNTER → 2024-12-23 14:00 | Outpatient (BNV) | payer MEDICARE, MEDICAID, SELFPAY | PROVIDERS: PCP Internal Medicine; Visit Provider Internal Medicine | DX: Z12.31 Encounter for screening mammogram for malignant neoplasm of breast (principal) | CPT/HCPCS: 77063; 77067 ==

== ENCOUNTER 2025-01-17 12:08 | Outpatient (AMB) | payer MEDICARE, MEDICAID, SELFPAY ==
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
== END 2025-01-17 12:44 | disposition home or self-care (01) ==
LOC: HO.HOP 12:08
PROVIDERS: PCP Internal Medicine; Visit Provider Psychiatry & Neurology Psychiatry
DX: F25.0 Schizoaffective disorder, bipolar type (principal)
CPT/HCPCS: 90833; 99213

== ENCOUNTER → 2025-01-17 12:08 | Outpatient (BNVA) | payer MEDICARE, MEDICAID, SELFPAY | PROVIDERS: PCP Internal Medicine; Visit Provider Psychiatry & Neurology Psychiatry | DX: F25.0 Schizoaffective disorder, bipolar type (principal); Z71.89 Other specified counseling | CPT/HCPCS: 99212 ==

== ENCOUNTER 2025-01-20 09:23 | Outpatient (AMB) | payer MEDICARE, MEDICAID, SELFPAY ==
--- NOTE | 2025-01-20 09:33 | A.OFFVIS_ITS ---
Intake Vital Signs 01/20/25 09:36 Height 5 ft 3 in Weight 196 lb BMI 34.7 BP 110/66 Blood Pressure Location Lt brachial Position Sitting Pulse 68 Pulse Source Pulse Oximeter Temp 97.3 F Temp Source Temporal Artery Scan Pulse Oximetry (%) 97 Oxygen Delivery Method Room Air Intake Visit Reasons: AWV Intake Note: Patient is here for an Annual Wellness Visit. 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 Industrial Garment Required: No Plastic Extrusion Operator: Plastic Extrusion Operator offered & declined Accompanied by: Self / Same As Patient Allergies Sulfa (Sulfonamide Antibiotics) Allergy (Mild, Verified 01/20/25 09:54) UNKNOWN HPI AWV HPI Details Dentist: up to date Eye: up to date Snellen: Right: Left: Corrected vision: STI screening: Colonoscopy: was suppose to have colon-3 weeks ago and she had to cancel and she has been trying to reach them since Mammogram: Up-to-date Pap Smer: Up-to-date Flu: up to date COVID: up to date Tdap: Given in office today Diet: trying to lose weight-but no special diet Exercise: little walking The patient is presenting today for annual wellness visit [place] of care and end of life planning discussed with patient. The MOLST and code status forms were given to the patient to be filled out and returned earliest convenience. Patient complaining of ongoing diarrhea-history of IBS with diarrhea-continue loperamide 2 mg b.i.d. p.r.n. She reports she is having the ECT done in couple of weeks She denies shortness of breath, chest pain, dizziness, heart palpitation HPI Comments History of Present Illness Details reviewed past medical history- yes reviewed surgical / hospitalization history- yes reviewed current medications- yes reviewed family history- yes home safety throw rugs? yes grab bars? no raised toilet seat? no working smoke detectors? yes activities of daily living difficulty bathing or showering? no difficulty dressing? no difficulty using the toilet? no difficulty getting in and out of bed? no difficulty walking?no receives help from other person's with any of the above tasks? instrumental activities of daily living uses telephone - yes gets to place out of walking distance-yes go shopping for groceries- yes repairs own meals- yes does own minor home maintenance- yes does own laundry- yes does own housework- yes manages own money- yes currently takes medication- yes end of life planning discussed advanced directives- yes advanced directives on file? discussed wishes expressed in advanced directives. fall risk have you had any falls with injuries in the past year? no have you had 2 or more falls in the past year? 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 Father No problems noted. Social History Housing: House Are you a primary skin care consultant to a significant other at home: No Do you presently have visiting nurse or other home services: No Alcohol intake: never Patient Tobacco Use Status: Former Tobacco user Tobacco use type: Cigarette e-Cigarette/Vaping Use: Never Used Second Hand Smoke Exposure: No service: No Current occupational status: disabled Cognitive needs: No Hearing needs: No Vision needs: Yes (Glasses) Female Reproductive History Menstrual Age of Menarche: 10 Questionnaire Medicare Wellness Checkup What [age] 65-67 (49) What gender do you identify with?: female During the past 4 weeks, how much have you been bothered by emotional problems such as feeling anxious, depressed, irritable, sad or downhearted, and blue?: not at all During the past 4 weeks, has your physical & emotional health limited your social activities with family, friends, neighbors, or groups?: not at all During the past 4 weeks, how much bodily pain have you generally had?: moderate pain During the past 4 weeks, was someone available to help you if you needed & wanted help?: yes, as much as I wanted During the past 4 weeks, what was the hardest physical activity you could do for at least 2 minutes?: moderate Can you get to places out of walking distance without help? (For eg., can you travel alone on buses, taxis or drive your car?): Yes Can you go shopping for groceries or clothes without someone's help?: Yes Can you prepare your own meals?: Yes Can you do your housework without help?: Yes Because of any health problems, do you need the help of another person with your personal care needs such as eating, bathing, dressing or getting around the house?: No Can you handle your own money without help?: Yes During the past 4 weeks, how would you rate your health in general?: good During the past 4 weeks how have things been going for you?: pretty well Are you having difficulties driving your car?: no Do you always fasten your seat belt when you are in a car?: yes, usually During past 4 weeks, have you been bothered by the following: never: Falling or dizzy when standing up, Sexual problems?, Trouble eating well?, Teeth or denture problems? and Problems using the telephone? and sometimes: Tiredness or fatigue? Have you fallen 2 or more times in the past year?: No Are you afraid of falling?: Yes Are you a smoker?: no During the past 4 weeks, how many drinks of wine, beer, or other alcoholic beverages did you have?: no alcohol at all Do you exercise for about 20 minutes 3 or more times a week?: yes, most of the time Have you been given information to help with the following?: no: Hazards in your house that might hurt you? and no: Keeping track of your medications? How often do you have trouble taking medicines the way you have been told to take them?: I always take medicine as prescribed How confident are you that you can control & manage most of your health problems?: very confident What is your race?: White Mini Mental State Exam (MMSE) Orientation What is the (year) (season) (date) (day) (month)?: year, season, date, day and month Where are we (state) (county) (town or city) (hospital) (floor)?: state, county, town or city, hospital/clinic and floor Score Score: 10 PHQ-9 Over the last 2 weeks, how often have you been bothered by any of the following problems? 1. Little interest or pleasure in doing things: not at all 2. Feeling down, depressed, or hopeless: not at all 3. Trouble falling or staying asleep, or sleeping too much: not at all 4. Feeling tired or having little energy: not at all 5. Poor appetite or overeating: several days 6. Feeling bad about yourself - or that you are a failure or have let yourself or your family down: not at all 7. Trouble concentrating on things, such as reading the newspaper or watching television: not at all 8. Moving or speaking so slowly that other people could have noticed. Or the opposite - being so fidgety or restless that you have been moving around a lot more than usual: not at all 9. Thoughts that you would be better off or of hurting yourself in some way: not at all Total score: 1 Depression Screening Interpretation: Negative Depression Screening Done: Yes 40096 - PHQ-9 Billing: Yes Source: Developed by Drs. Adam Donohue, Gracie Toure, Rishi Abdi and colleagues, with an educational pranay from [employer]. Thrive Questionnaire Date Thrive assessed: 01/20/25 I am a: Patient What is your living situation today?: I have a steady place to live Within the past 12 months, did the food you bought not last and you didn't have the money to get more?: Never true Within the past 12 months, did you worry whether your food would run out before you got money to buy more?: Never true Do you have trouble paying for medicines?: No Do you have trouble getting transportation to medical appointments?: No Do you have trouble paying your heating and electricity bill?: No Do you have trouble taking care of your child, family member or friend?: No Do you have trouble with day-to-day activities such as bathing, preparing meals, shopping, managing finances, etc.?: No Are you currently unemployed and looking for a job?: No Are you interested in more education?: No Please select the resources that you would like help with: None Currently or been in a relationship where the following occur: No concerns reported THRIVE Score: 0 JYOTSNA-7 AMB Questionnaire JYOTSNA-7 Date JYOTSNA - 7 assessed: 01/20/25 Feeling nervous, anxious, or on edge: 0 = Not at all Not being able to stop or control worryin = Not at all Worrying too much about different things: 0 = Not at all Trouble relaxin = Not at all Being so restless that it is hard to sit still: 0 = Not at all Becoming easily annoyed or irritable: 0 = Not at all Feeling afraid as if something awful might happen: 0 = Not at all Total JYOTSNA-7 score (0-4 normal; 5-9 mild; 10-14 moderate; 15-21 severe): 0 Source: Developed by Drs. Adam Donohue, Gracie Toure, Rishi Abdi and colleagues, with an educational pranay from [employer]. JYOTSNA-7 Assessment Billing JYOTSNA-7 Assessment Tool: JYOTSNA-7 Assessment 11201 AUDIT C Alcohol Use Questionnaire (AUDIT-C) 1. How often do you have a drink containing alcohol?: Never Total Score: 0 Review of Systems Const Details: Denies chills, Denies fatigue, Denies fever(s), Denies headache(s) and Denies w eakness HEENT Denies change in vision, Denies dizziness, Denies headache(s), Denies hearing loss, Denies nasal congestion, Denies sinus pain, Denies sinus pressure and Denies sore throat Card Denies chest pain, Denies lightheadedness, Denies dyspnea and Denies other (palpitations) Resp Denies cough, Denies dyspnea and Denies wheezing GI Denies abdominal pain, Denies melena, Denies hematochezia, Denies change in bowel habits (chronic diarrhea), Denies dyspepsia and Denies nausea Denies hematuria and Denies dysuria Musc Denies abnormal gait, Denies myalgias, Denies arthralgias, Denies numbness and Denies tingling Skin/Breast Denies rash, Denies unusual bruising and Denies wounds Neuro Denies abnormal gait, Denies dizziness, Denies headache(s), Denies memory loss, Denies numbness, Denies Sensory deficit (Neuro), Denies tingling and Denies weakness Psych Denies anxiety, Denies depression and Denies memory loss Endo Denies cold intolerance, Denies fatigue, Denies heat intolerance, Denies polydipsia and Denies polyuria Raul/Lymph Denies easy bleeding and Denies easy bruising Aller/Immun Denies wheezing Physical Exam Vital Signs: Last Vital Signs Temp 97.3 F 01/20/25 09:36 Pulse 68 01/20/25 09:36 BP 110/66 01/20/25 09:36 Pulse Ox 97 01/20/25 09:36 Oxygen Delivery Method Room Air 01/20/25 09:36 BMI result Body Mass Index 34.7 Const Other: IPPE/AWV: Balance Romberg Yes . Tandem walk Yes. Walk and Turn Yes . Rise from sit to stand Yes . Vision Corrective lens No Vision screen pass Hearing Whisper test pass . Urinary incont. no. EKG Not clinically necessary. reports having one done recently that was normal for her upcoming ECT Immunizations Boostrix Tdap 2.5 Lf unit-8 mcg-5 Lf/0.5 mL intramuscular syringe Performing Provider: ALCIRA Cleary [facility] Administered by: Allie Ladd RN on 01/20/25 10:43 Dose Route Admin Location Dispensed Lot Number Expiration Date [facility] Electrical Parts Reconditioner 0.5 mL IM Left Deltoid 0.5 mL [id number] 03/11/27 19730-018-42 Slingbox VIS Given Date VIS Provided VIS Publication Date 01/20/25 Single Vaccine 21 Eligibility Eligibility Date Funding Source Not [facility] Eligible 01/20/25 Private Assessment & Plan Assessment & Plan (1) Annual wellness visit: Code(s): Z00.00 - Encounter for general adult medical examination without abnormal findings Plan: Preventative guidelines was discussed with patient. No recent labs. labs were ordered for the patient to complete as soon as possible. [place] of care and end of life and it was discussed with the patient in detail. Patient was given a MOLST form and code status form to fill out at her earliest convenience. Patient reports that she has to think about it. (2) Irritable bowel syndrome with diarrhea: Code(s): K58.0 - Irritable bowel syndrome with diarrhea Plan: History of IBS, patient continues to complain about diarrhea. Continue Creon, loperamide Discussed with patient about following up with GI. 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 CBC ordered Follow up with Psychiatry (4) Diarrhea: Code(s): R19.7 - Diarrhea, unspecified Qualifiers: Diarrhea type: unspecified type Qualified Code(s): R19.7 - Diarrhea, unspecified Plan: Loperamide 2 mg b.i.d. p.r.n. (5) Elevated blood pressure reading without diagnosis of hypertension: Code(s): R03.0 - Elevated blood-pressure reading, without diagnosis of hypertension Plan: Reinforced a low-sodium diet Blood pressure is within goal. Currently not on any blood pressure medications (6) Hypercholesterolemia: Code(s): E78.00 - Pure hypercholesterolemia, unspecified Plan: Reinforced a cholesterol diet No recent labs. Lipid panel ordered Continue atorvastatin 20 mg daily (7) Hypothyroid: Code(s): E03.9 - Hypothyroidism, unspecified Qualifiers: Hypothyroidism type: acquired Qualified Code(s): E03.9 - Hypothyroidism, unspecified Plan: No recent labs. Thyroid function tests ordered Continue levothyroxine 112 mcg daily (8) Schizoaffective disorder, bipolar type: Comment: bipolar Code(s): F25.0 - Schizoaffective disorder, bipolar type Plan: Continue lithium carbonate 900 mg at bedtime, cariprazine 6 mg daily, clonazepam as directed, fluvoxamine 100 mg b.i.d. Reports she has a ECT couple of weeks Follow up with Psychiatry as scheduled Orders: Orders Comprehensive [place]. Panel Fast 01/20/25 Z00. - Encounter for general adult medical examination without abnormal findings Lipid Panel 01/20/25 Z00.00 - Encounter for general adult medical examination without abnormal findings Vitamin D 25-OH Total 01/20/25 Z00.00 - Encounter for general adult medical examination without abnormal findings Free T4 (Free Thyroxine) 01/20/25 E03.9 - Hypothyroidism, unspecified Complete Blood Count Auto Diff 01/20/25 Z00. - Encounter for general adult medical examination without abnormal findings UA CC w/rflx Micro + Cult 01/20/25 Z00.00 - Encounter for general adult medical examination without abnormal findings TSH reflex Free T4 01/20/25 Z00.00 - Encounter for general adult medical examination without abnormal findings Glucose Fasting 01/20/25 Z00.00 - Encounter for general adult medical examination without abnormal findings TDaP Immunization 01/20/25 Z23 - Encounter for immunization Medications: Discontinued olanzapine Discontinued Reason: Patient Refused 10 mg PO BID 30 days 60 tabs 3RF Quality Reporting (2019) Depression/Bipolar (159/160/161/177) PHQ-9: Total score: 1 Coding Level of Care Code Medicare Subsequent (G0439) Diagnoses Annual wellness visit Z00.00 Irritable bowel syndrome with diarrhea K58.0 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 Z79.899 Diarrhea, unspecified type R19.7 Diarrhea type: unspecified type Elevated blood pressure reading without diagnosis of hypertension R03.0 Hypercholesterolemia E78.00 Acquired hypothyroidism E03.9 Hypothyroidism type: acquired Schizoaffective disorder, bipolar type F25.0 CPT Codes Advance Care Planning - Time spent: 1-15 minutes, on File ([id number]) Additional Codes PHQ-9 - 18575 - PHQ-9 Billing: Yes ([id number]) JYOTSNA-7 Assessment Billing - JYOTSNA-7 Assessment Tool: JYOTSNA-7 Assessment 67259 ([id number]) Time Spent (min) 36 Advance Care Planning Date of discussion: 01/20/25 Who was present: no one Forms completed: None (Forms were given to the patient to fill out) Time spent: 1-15 minutes, on File
[2025-01-20 09:36] VITALS: BP 110/66; PULSE 68; TEMP 36.3; O2SAT 97; BMI 34.7
--- OUTSIDE RECORDS SUMMARY | 2025-01-20 10:05 | XMS_ITS | Clinical Summary ---
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 10/04/2024 Hip fracture requiring operative repair 10/04/20 24 Encounters Date Type Department Care Team Description 11/01/2024 11:00 AM EST Office Visit Orthopedic Surgery - [place] [address] [facility] [address] [place] [id number] Brent Hazel, DPM Neuritis (Primary Dx); 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, initial encounter ([facility]) 10/31/2024 1:15 PM EST - 10/31/2024 11:59 PM EST Hospital Encounter [facility] CT Scan [address] [place] [address] Left foot pain; Arthritis of foot, left; 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, initial encounter ([facility]); Neuritis Discharge Disposition: Home or [...] to internal orthopedic prosthetic device, initial encounter ([facility]) Neuritis from Last 3 Months [...] Signed Date: 11/01/2024 10:44 ET Workstation ID: [id number] Transcribed By: Self Edit Transcribed Date: 11/01/2024 [...] Dictated Date: 11/01/2024 10:33 ET Assigned Physician: Brnet Wei Reviewed and Electronically Signed By: Brent Wei Signed Date: 11/01/2024 10:44 ET Workstation ID: [id number] Transcribed By: Self Edit Transcribed Date: 11/01/2024 10:33 ET Brent Hazel DPM IMG CT PROCEDURES Final R esult from Last 3 Months Insurance MEDICARE MEDICAID - [place] Advance Directives Documents on File Type Date Recorded Patient Infrastructure Tech Expl anation Health Care Decision (hx) 01/16/2015 AD MONGE DIRECTIVE Health Care Decision (hx) 01/16/2015 AD MONGE DIRECTIVE Health Care Decision (hx) 01/16/2015 AD MONGE DIRECTIVE Care Teams Flooring Grader Relationship Specialty Start Date End Date Bashir Tadeo MD [facility] [address] [place] [address] [address] [place] [address] PCP - General Internal Medicine 08/30/24
== END 2025-01-20 10:46 | disposition home or self-care (01) ==
PROVIDERS: PCP Internal Medicine
DX: Z23 Encounter for immunization (principal)

== ENCOUNTER → 2025-01-20 09:23 | Outpatient (BNVA) | payer MEDICARE, MEDICAID, SELFPAY | PROVIDERS: PCP Internal Medicine | DX: Z00.00 Encounter for general adult medical examination without abnormal findings (principal); Z23 Encounter for immunization; K58.0 Irritable bowel syndrome with diarrhea; R19.7 Diarrhea, unspecified; E78.00 Pure hypercholesterolemia, unspecified; E03.9 Hypothyroidism, unspecified; F25.0 Schizoaffective disorder, bipolar type; R03.0 Elevated blood-pressure reading, without diagnosis of hypertension; Z79.899 Other long term (current) drug therapy | CPT/HCPCS: 90471; 90715; 96127 ==

== ENCOUNTER 2025-01-25 08:37 | Outpatient (REF) | payer MEDICARE, MEDICAID, SELFPAY ==
[2025-01-25 09:01] LABS: MANUAL DIFF FLAG NO
--- OUTSIDE RECORDS SUMMARY | 2025-01-25 09:17 | XMS_ITS | Clinical Summary ---
Author Organization 175 [facility] Address [address] [place] [address] Phone Care Team Providers Care Manager Billing Name Role Phone Bashir Tadeo MD Primary Care Provider [phone]- [phone] Allergies Active Allergy Reactions Criticality Noted Date [...] 10/04/2024 Schizoaffective disorder, bipolar type Depression 10/04/2024 long-term current use of clozapine 10/04/2024 Hip fracture requiring operative repair 10/04/20 24 Encounters Date Type Department Care Team Description 11/01/2024 11:00 AM EST Office Visit Orthopedic Surgery - [place] [address] [facility] [address] [place] [phone] Brent Hazel, DPM Neuritis (Primary Dx); 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, initial encounter ([facility]) 10/31/2024 1:15 PM EST - 10/31/2024 11:59 PM EST Hospital Encounter [facility] Scan [address] [place] [address] Left foot pain; Arthritis of foot, left; 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, initial encounter ([facility]); Neuritis Discharge Disposition: Home or [...] to internal orthopedic prosthetic device, initial encounter ([facility]) Neuritis from Last 3 Months [...] Signed Date: 11/01/2024 10:44 ET Workstation ID: [id number] Transcribed By: Self Edit Transcribed Date: 11/01/2024 [...] Signed Date: 11/01/2024 10:44 ET Workstation ID: [id number] Transcribed By: Self Edit Transcribed Date: 11/01/2024 10:33 ET Brent Hazel DPM IMG CT PROCEDURES Final R esult from Last 3 Months Insurance MEDICARE MEDICAID - [place] Advance Directives Documents on File Type Date Recorded Patient Regional Operations Director Expl anation Health Care Decision (hx) 01/16/2015 AD MONGE DIRECTIVE Health Care Decision (hx) 01/16/2015 AD MONGE DIRECTIVE Health Care Decision (hx) 01/16/2015 AD MONGE DIRECTIVE Care Teams Manager Billing Relationship Specialty Start Date End Date Bashir Tadeo MD [facility] [address] [place] [address] [address] [place] [address] PCP - General Internal Medicine 08/30/24
--- OUTSIDE RECORDS SUMMARY | 2025-01-25 09:17 | XMS_ITS | Patient Health Record ---
Author Organization [facility] Address [address] [facility] [address] [place] [address] Care Team Providers Care Air Compressor Mechanic Name Role Phone RAMIREZ SHANIA Primary Care Provider Adam Craig Unavailable [phone] Jose Carlos Alvarez MD Unavailable Unavailable Allergies Allergen (clinical drug ingredient) Drug/Non Drug Allergy documented on EMR Reaction Allergy Type Onset Date Status Sulfa Unknown Drug Allergy Active Reason For Referral No Information Medications Medication SIG (Take, Route, Frequency, Duration) Notes Start Date End Date Status Synthroid 137mg 1 tablet on an empty stomach in the morning Orally Once a day Active Perphenazine 8 MG 1 tablet Orally Once a day Active LaMICtal 150 MG 1 tablet Orally once a day Active Simvastatin 40 MG 1 tablet in the even ing Orally Once a day Active Diphenoxylate-Atropine 2.5-0.025 MG 1 Orally QAM Active Ativan 0.5 MG 1 tablet as needed O rally Once a day Active Immunizations Vaccine Route Administration Date Status Comme nts Flu vaccine no Preserv 3 and > Unknown 07/29/2017 Admin istered Social History Tobacco Use: Social History Observation Description Date Details (start date - stop date) Current Smoker NA - NA Tobacco Use/Smoking Question Answer Notes Patient is a current smoker How often do you smoke cigarettes? every day How many cigarettes a day do you smoke? 6-10 How soon after you wake up d o you smoke your first cigarette? within 5 minutes Are you interested in quitting? Thinking about q uitting Alcohol Screen Question Answer Notes Did you have a drink containing alcohol in the p ast year? No Points 0 Interpretation Negative Section Notes: Smoker; no alcohol Smoker; no alcohol Problems Problem Type SNOMED Code ICD Code Onset Dates Problem Status W/U Status Risk Notes Problem [id number] Irritable bowel syndrome with diarrhea (K58.0) Active confirmed Problem 56677692 Internal hemorrhoid (K64.8) Active confirmed Plan Of Treatment Next Appt Details Provider Name:Adam Medrano , 05/19/2025 02:40:00 PM, [address], [address], [place], [address], Insurance Providers Payer Name Payer Address Payer Phone Subscriber Number Group Number Insured Name Patient Relationship to Insured Coverage Start Date Coverage End Date MEDICARE [place] [address] [place] [address] [id number] ROBYN DUFF Self - patient is the insured 3 MEDICAID OF [employer] [address] [place] [address] [id number] ROBYN DUFF Self - patient is the insured Medical (General) History Medical History History ICD Code Denies [place],DM,CVA,Lung disease,renal dise ase Bipolar depression Hypothyroidism Hyperlipidemia GERD-EGD in 09/2017--small h iatal hernia, no esophagitis, no Snyder's esophagus, and duodenal biopsies were normal and without any signs of celiac disease IBS--- duodenal biopsies wer e negative for celiac disease and colon biopsies were negative for microscopic colitis in 09/2017 Colonoscopy in 09/2017--smal l internal hemorrhoids and occasional diverticulosis--- otherwise normal exam--biopsies negative for microscopic colitis Surgical History Surgery Date(Month/Year) Rhinoplasty-cosmetic
[2025-01-25 09:55] LABS: Basophils Absolute Auto 0.1 X10*3/uL (0.0-0.2); Basophils Percent Auto 0.9 % (0-2); Eosinophils Absolute Auto 0.2 X10*3/uL (0.0-0.4); Eosinophils Percent Auto 2.8 % (0-4); Hematocrit 38.7 % (37.0-47.0); Hemoglobin 12.8 g/dl (12.0-16.0); Imm Gran Abs Auto 0.01 X10*3/uL (0.00-0.03); Imm Gran Pct Auto 0.2 % (0.0-0.4); Lymphocytes Absolute Auto 1.3 X10*3/uL (1.2-4.9); Lymphocytes Percent Auto 23.1 % (20-40); Mean Corpuscular HGB Conc 33.1 g/dl (31.0-35.0); Mean Corpuscular Volume 93.7 fL (80.0-98.0); Mean Platelet Volume 10.1 fL (9.4-12.3); Monocytes Absolute Auto 0.3 X10*3/uL (0.1-1.2); Monocytes Percent Auto 5.2 % (2-11); Neutrophils Absolute Auto 3.9 x10*3/uL (2.0-8.3); Neutrophils Percent Auto 67.8 % (45-73); Platelet Count 235 X10*3/uL (160-400); Red Blood Count 4.13 X10*6/uL (4.20-5.50); Red Cell Distribution Width 13.2 % (11.0-16.0); White Blood Count 5.8 X10*3/uL (4.8-10.8)
[2025-01-25 10:13] LABS: Estimated Average Glucose 111 mg/dL; Hemoglobin A1C 123.6021 umol/L; Hemoglobin A1c % 5.5 % (<6.0); Total Hemoglobin (HGBA1C) 3426.4292 umol/L
[2025-01-25 10:14] LABS: Lithium 0.86 mmol/L (0.60-1.20)
[2025-01-25 10:19] LABS: Valproate < 12.5 mcg/mL (50.0-100.0)
[2025-01-25 10:34] LABS: Alanine Aminotransferase 19 U/L (0-31); Albumin Level 4.5 g/dL (3.5-5.0); Alkaline Phosphatase 94 U/L (39-117); Anion Gap 10 (12-20); Aspartate Amino Transferase 24 U/L (5-31); Bilirubin Total 0.4 mg/dL (0.0-1.0); Blood Urea Nitrogen 14 mg/dL (9-16); Calcium 9.8 mg/dL (8.4-10.2); Carbon Dioxide 25 mmol/L (22-29); Chloride 109 mmol/L (96-108); Estimated Glomerular Filt Rate > 60; Glucose Random 109 mg/dL (60-115); Potassium 4.4 mmol/L (3.3-5.1); Sodium 140 mmol/L (135-145); Total Protein 7.6 g/dL (6.5-8.0)
[2025-01-25 10:45] LABS: TSH reflex Free T4 1.81 uIU/mL (0.32-4.0)
[2025-01-29 16:28] LABS: Vitamin D 25-OH, D2 <4 ng/mL; Vitamin D 25-OH, D3 34 ng/mL; Vitamin D 25-OH, Total 34 ng/mL (30-100)
== END 2025-01-25 08:38 | disposition home or self-care (01) ==
LOC: HO.LAB 08:37
PROVIDERS: PCP Internal Medicine; Visit Provider Psychiatry & Neurology Psychiatry
DX: F25.0 Schizoaffective disorder, bipolar type (principal); E78.00 Pure hypercholesterolemia, unspecified; R73.9 Hyperglycemia, unspecified; E03.9 Hypothyroidism, unspecified; E55.9 Vitamin D deficiency, unspecified; Z79.899 Other long term (current) drug therapy
CPT/HCPCS: 36415; 80053; 80164; 80178; 82306; 83036; 84443; 85025

== ENCOUNTER 2025-02-20 11:10 | Outpatient (AMB) | payer MEDICARE, MEDICAID, SELFPAY ==
--- NOTE | 2025-02-20 11:11 | MHC.OFFVIS ---
Vital Signs 02/20/25 11:13 Height 5 ft 3 in Weight 196 lb BMI 34.7 BP 110/68 Intake Visit Reasons: Ultrasound follow up/DO NOT RS Retail Client Solutions Analyst Required: No Information Interpreted: non-clinical & clinical Accompanied by: Self / Same As Patient Allergies Sulfa (Sulfonamide Antibiotics) Allergy (Mild, Verified 02/20/25 11:14) UNKNOWN Post menopausal: Yes HPI Comments Details: The patient presenting for pelvic ultrasound follow-up regarding an episode of postmenopausal bleeding. Ultrasound showed the following: The retroverted uterus measures 6.4 x 4.0 x 5.3 cm. Endometrial thickness is 2 mm. No significant free fluid. Nabothian cysts in the cervix. Right ovary measures 2.0 x 1.0 x 1.4 cm, volume 1.4 mL. Left ovary measures 1.7 x 1.2 x 1.3 cm, volume 1.5 mL. 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 Father No problems noted. Social History Housing: House Are you a primary career technical education teacher to a significant other at home: No Do you presently have visiting nurse or other home services: No Alcohol intake: never Patient Tobacco Use Status: Former Tobacco user Tobacco use type: Cigarette e-Cigarette/Vaping Use: Never Used Second Hand Smoke Exposure: No service: No Current occupational status: disabled Cognitive needs: No Hearing needs: No Vision needs: Yes (Glasses) Female Reproductive History Menstrual Age of Menarche: 10 Review of Systems Const All systems reviewed & are unremarkable except as noted in HPI and below Reports as per HPI and Reports no additional complaints GI Reports no additional complaints Reports no additional complaints Physical Exam Vital Signs: Last Vital Signs BP 110/68 02/20/25 11:13 BMI result Body Mass Index 34.7 Assessment & Plan Assessment & Plan (1) Postmenopausal bleeding: Code(s): N95.0 - Postmenopausal bleeding Category: Medical Plan: Discussed with the patient the results of the pelvic ultrasound showing an endometrial stripe thickness of 3 mm. Explained to the patient with an endometrial stripe of 4 mm &/or less, there is a high negative predictive value in detecting endometrial pathology including endometrial hyperplasia, polyps or malignancy. Therefore, there is no indication for endometrial sampling. Discussed with the patient the sensitivity, specificity, and positive and the negative predictive value of using ultrasound in detecting endometrial pathology. The patient was instructed to call if bleeding recurs, will proceed with endometrial sampling out endometrial pathology. All questions were answered and the patient verbalized understanding and agreed with the plan. Coding Level of Care Code Est Pt Level 3 (36353) Diagnoses Postmenopausal bleeding N95.0
[2025-02-20 11:13] VITALS: BP 110/68; BMI 34.7
--- OUTSIDE RECORDS SUMMARY | 2025-02-20 12:47 | XMS_ITS | Patient Health Record ---
Author Organization [facility] Address [address] [facility] [address] [place] [address] Care Team Providers Care Msws Name Role Phone RAMIREZ SHANIA Primary Care Provider Adam Craig Unavailable [phone] Jose Carlos Alvarez MD Unavailable Unavailable Allergies [...] Problem Status W/U Status Risk Notes Problem [id number] Irritable bowel syndrome with diarrhea (K58.0) Active confirmed Problem 64563859 Internal hemorrhoid (K64.8) Active confirmed Plan Of Treatment Next Appt Details Provider Name:Adam Medrano , 05/19/2025 02:40:00 PM, [address], [address], [place], [address], Insurance Providers Payer Name Payer Address Payer Phone Subscriber Number Group Number Insured Name Patient Relationship to Insured Coverage Start Date Coverage End Date MEDICARE OF [place] [address] [place] [address] [id number] ROBYN DUFF Self - patient is the insured 3 MEDICAID OF [employer] [address] [place] [address] [id number] ROBYN DUFF Self - patient is the insured Medical (General) History Medical History History ICD Code Denies [place],DM,CVA,Lung disease,renal dise ase Bipolar depression Hypothyroidism Hyperlipidemia [...]
--- OUTSIDE RECORDS SUMMARY | 2025-02-20 12:47 | XMS_ITS | Clinical Summary ---
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 10/04/2024 Hip fracture requiring operative repair 10/04/20 Immunizations Name Administration Dates Next Due Moderna [...] 11/01/2024 10:52 AM EST Plan of Treatment Upcoming Encounters Date Type Department Care Team ([facility] st Contact Info) Description 03/08/2025 1:30 PM EDT Office Visit Orthopedic Surgery - [place] [address] [address] Brent Hazel, DPRebeka [address] [address] Health Maintenance Due Date Last Done Comments [...] on patient's age to complete this topic Insurance MEDICARE MEDICAID - [place] Advance Directives Documents on File Type Date Recorded 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
== END 2025-02-20 11:43 | disposition home or self-care (01) ==
LOC: HO.HWS 11:10
PROVIDERS: PCP Internal Medicine; Visit Provider Obstetrics & Gynecology
DX: N95.0 Postmenopausal bleeding (principal)
CPT/HCPCS: 99213

== ENCOUNTER → 2025-02-20 11:10 | Outpatient (BNVA) | payer MEDICARE, MEDICAID, SELFPAY | PROVIDERS: PCP Internal Medicine; Visit Provider Obstetrics & Gynecology | DX: N95.0 Postmenopausal bleeding (principal) | CPT/HCPCS: 99212 ==

== ENCOUNTER 2025-02-24 06:02 | Day surgery (SDC) | payer MEDICARE, MEDICAID, SELFPAY ==
--- OUTSIDE RECORDS SUMMARY | 2025-02-21 07:17 | XMS_ITS | Patient Health Record ---
Author Organization [facility] Address [address] [facility] [address] [place] [address] Care Team Providers Care International Account Manager Name Role Phone RAMIREZ SHANIA Primary Care Provider Adam Craig Unavailable [phone] Jose Carlos Alvarez MD Unavailable Unavailable Allergies [...] Problem Status W/U Status Risk Notes Problem [id number] Irritable bowel syndrome with diarrhea (K58.0) Active confirmed Problem 80321363 Internal hemorrhoid (K64.8) Active confirmed Plan Of Treatment Next Appt Details Provider Name:Adam Medrano , 05/19/2025 02:40:00 PM, [address], [address], [place], [address], Insurance Providers Payer Name Payer Address Payer Phone Subscriber Number Group Number Insured Name Patient Relationship to Insured Coverage Start Date Coverage End Date MEDICARE OF [place] [address] [place] [address] [id number] ROBYN DUFF Self - patient is the insured 3 MEDICAID OF [email or web address] [address] [place] [phone] [id number] ROBYN DUFF Self - patient is the insured Medical (General) History Medical History History ICD Code Denies [place],DM,CVA,Lung disease,renal dise ase Bipolar depression Hypothyroidism Hyperlipidemia [...]
--- OUTSIDE RECORDS SUMMARY | 2025-02-21 07:17 | XMS_ITS | Clinical Summary ---
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 10/04/2024 Hip fracture [...] Upcoming Encounters Date Type Department Care Team ([facility] st Contact Info) Description 03/08/2025 1:30 PM EDT Office Visit Orthopedic Surgery - [place] [address] [address] Brent Hazel, DPRebeka [address] [address] Health Maintenance Due Date Last Done Comments [...] Documents on File Type Date Recorded 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
[2025-02-24 06:24] VITALS: BMI 32.9
--- NOTE | 2025-02-24 07:07 | MHC.SHP ---
Pre-Procedural Eval Section A - 24 Hr Update-Section A only Date of Service: 02/24/25 The patient is an INPATIENT: No Changes since office visit: Yes Patient answered all questions; No Cold of Flu in the past 2 weeks, No New Medical Problems and No Changes in Medication The patient has been examined within 24 hours of the surgical procedure. The History & Physical has been completed within 30 days and I have reviewed it.: No Section B - Complete if H&P > 30 days Chief Complaint: depression Details of Present Illness: Stable mood, no new changes Relevant Family History (Specify if Yes): No Relevant Social History: None Present Medications: see Short Stay Collaborative assessment Medical History: No relevant PMH History of Previous Operations: No relevant previous surgery Allergies: Allergies Allergy/AdvReac Type Severity Reaction Status Date / Time Sulfa (Sulfonamide Allergy Mild UNKNOWN Verified 02/20/25 11:14 Antibiotics) Review of Systems Sugical H&P ROS: Negative: Constitution, Cardiovascular, Respiratory, Neurological, Hem-Onc, Allergic/Immunologic, Gastrointestinal, Genitourinary, Musculoskeletal, Integumentary and Eyes/Ears/Nose/Throat and Yes, Specify: Psychiatric (chronic pi) Exam Surgical H&P Exam: Normal: HEENT, Normal: Heart, Normal: Lungs, Normal: Extremities, Normal: Abdomen, Normal: Skin and Normal: Neurological Plan Diagnosis/Plan: Unchanged I have reviewed the history and physical and performed a pertinent physical examination on my patient. No changes have occurred unless specified. Time Spent With Patient Time: Total time managing care of this patient today ____ minutes.
--- NOTE | 2025-02-24 07:14 | MHC.SHP ---
Pre-Procedural Eval Section A - 24 Hr Update-Section A only Date of Service: 02/24/25 The patient is an INPATIENT: No Changes since office visit: No Cold of Flu in the past 2 weeks, No New Medical Problems, No Changes in Medication and No Patient answered all questions The patient has been examined within 24 hours of the surgical procedure. The History & Physical has been completed within 30 days and I have reviewed it.: Yes Section B - Complete if H&P > 30 days Chief Complaint: depression Details of Present Illness: Stable mood, no new changes Relevant Family History (Specify if Yes): No Relevant Social History: None Present Medications: see Short Stay Collaborative assessment Medical History: No relevant PMH History of Previous Operations: No relevant previous surgery Allergies: Allergies Allergy/AdvReac Type Severity Reaction Status Date / Time Sulfa (Sulfonamide Allergy Mild UNKNOWN Verified 02/20/25 11:14 Antibiotics) Review of Systems Sugical H&P ROS: Negative: Constitution, Cardiovascular, Respiratory, Hem-Onc, Allergic/Immunologic, Gastrointestinal, Genitourinary, Musculoskeletal, Integumentary, Endocrine and Eyes/Ears/Nose/Throat and Yes, Specify: Neurological (some st memory dysfx) and Psychiatric (some pi) Exam Surgical H&P Exam: Normal: HEENT, Normal: Heart, Normal: Lungs, Normal: Extremities, Normal: Abdomen, Normal: Skin and Normal: Neurological Plan Diagnosis/Plan: Unchanged I have reviewed the history and physical and performed a pertinent physical examination on my patient. No changes have occurred unless specified. Time Spent With Patient Time: Total time managing care of this patient today ____ minutes.
--- NOTE | 2025-02-24 07:15 | HO.ECTPROC ---
ECT Procedure Note Diagnosis/Treatment Date of Service: 02/26/25 Diagnosis: Schizoaffective Disorder Previous ECT Date: 12/14/24 Treatment: Maintenance Interval Clinical Notes: Patient with no complaints of ongoing side effects with ECT question working attention and ongoing short-term memory related to medication with no significant changes with ECT which we have done bifrontal 0.25. Have discussed potential side effects with patient including with benzodiazepines and lithium. The patient completed bifrontal ECT without difficulty . States she has been doing okay with some mild depressive breakthroughs and no SI ongoing intermittent paranoia that is chronic which at times she can push away Time: Total time managing care of this patient today ____ minutes. ECT Settings Device: THYMATRON DGx Electrode Placement: Bifrontal Program/Pulse Width: 0.50 Energy Percent: 100 Seizure Duration By EEG (in seconds): 52 Medications Administration General Anesthetic: Etomidate (16) Muscle Relaxant: Succinylcholine (100) Ancillary Medications Analgesics: Torodol - Pre ECT (15) Anti-emetics: Zofran - Pre ECT (4) Airway Management Airway Management: Bag Mask Ventilation Treatment Recommendations No Changes Recommended: No change Pt Tolerated Procedure w/o Issue: Yes
[2025-02-24 07:28] VITALS: BP 136/63; PULSE 65; RESP 12; TEMP 37.7; O2SAT 97
[2025-02-24 07:30] VITALS: BP 111/74; PULSE 65; RESP 12; O2SAT 97
[2025-02-24 07:35] VITALS: BP 116/65; PULSE 66; RESP 12; O2SAT 97
[2025-02-24 07:40] VITALS: BP 112/61; PULSE 70; RESP 16; O2SAT 98
[2025-02-24 07:55] VITALS: BP 104/59; PULSE 65; RESP 16; TEMP 36.9; O2SAT 95
--- NOTE | 2025-02-24 07:58 | HO.ANESPROP2 ---
HPI - Anesthesia Eval Consult details Narrative: 49 yo female patient for ECT PMFSH Active Problems Active Problems: All Active Problems Annual wellness visit (Acute) Annual physical exam (Acute) Irritable bowel syndrome with diarrhea (Acute) Incomplete bladder emptying (Acute) Hyperglycemia (Acute) Allergic rhinitis (Acute) [facility] current use of clozapine (Acute) Tinea pedis (Acute) Left foot pain (Acute) Shortness of breath (Acute) Hyperkalemia (Acute) Diarrhea (Acute) Palpitation (Acute) Eczema (Acute) Postmenopausal bleeding (Acute) Amenorrhea (Acute) Menopause (Acute) Complex ovarian cyst (Acute) Elevated blood pressure reading without diagnosis of hypertension (Acute) Hypercholesterolemia (Acute) Hypothyroid (Acute) Schizoaffective disorder, bipolar type (Chronic) Past Medical History Medical History Pre-op examination Well woman exam Left foot pain Preoperative clearance Hip fracture requiring operative repair [facility] current use of 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 Father No problems noted. Family history of problems with anesthesia: No Surgical History Surgical History S/P foot surgery, left History of surgery on lower extremity History of hip replacement History of tracheostomy History of hip surgery Status post aortic coarctation stent placement H/O rhinoplasty History of Problems with Anesthesia: No Social History Social History Housing: House Are you a primary transitional care nurse to a significant other at home: No Do you presently have visiting nurse or other home services: No Alcohol intake: never Patient Tobacco Use Status: Former Tobacco user Tobacco use type: Cigarette e-Cigarette/Vaping Use: Never Used Second Hand Smoke Exposure: No Advance Directives: No Advance Directives Information Provided: Yes service: No Current occupational status: disabled Cognitive needs: No Hearing needs: No Vision needs: Yes (Glasses) Meds Allergies Allergy/AdvReac Type Severity Reaction Status Date / Time Sulfa (Sulfonamide Allergy Mild UNKNOWN Verified 02/20/25 11:14 Antibiotics) Home Medications ?Medication ?Instructions ?Recorded ?Confirmed ?Last Taken ?Type cholecalciferol (vitamin D3) 25 25 mcg PO DAILY 06/23/23 11/08/24 Unknown History mcg (1,000 unit) capsule Exam Height,Weight and Vital Signs: Height 5 ft 3 in Weight 84.368 kg Last Vital Signs Vital Signs Temp Pulse Resp BP Pulse Ox O2 Del Method O2 Flow Rate 99.8 F 65 12 136/63 97 Nasal Cannula with ETCO2 2 02/24/25 07:28 02/24/25 07:28 02/24/25 07:28 02/24/25 07:28 02/24/25 07:28 02/24/25 07:28 02/24/25 07:28 Temp 98.5 F 02/24/25 07:55 Pulse 65 02/24/25 07:55 Resp 16 02/24/25 07:55 BP 104/59 L 02/24/25 07:55 Pulse Ox 95 02/24/25 07:55 O2 Del Method Room Air 02/24/25 07:55 O2 Flow Rate 2 02/24/25 07:40 Airway Mallampati Class: II TM Dist: >3cm Neck ROM: Full Loose/Missing/Broken Teeth: Yes (Missing some teeth. Denies broken or loose teeth) Heart: RRR Lungs: CTAB Assessment and Plan Assessment Anesthesia Assessment: Anesthesia Plan Discussed and Chart Reviewed Final Anesthetic Review Family History of Problems with Anesthesia: No History of Problems with Anesthesia: No NPO: Yes ASA Class: III Final Preanesthetic Review: No Changes in Pt Med Stat, Meds/Allgs Chart Reviewed, Consent Obtained/Reviewed and Anes Risks/Benef Reviewed Patient Risk: Intermediate Procedure Risk: Intermediate Anesthetic Plan Anesthetic Plan: GA Disposition: Standard PACU
== END 2025-02-24 08:48 | disposition home or self-care (01) ==
PROVIDERS: PCP Internal Medicine; Visit Provider Psychiatry & Neurology Psychiatry
PROC: (CPT 90870; principal; 2025-02-24 07:00)
DX: F25.0 Schizoaffective disorder, bipolar type (principal); F22 Delusional disorders; E78.00 Pure hypercholesterolemia, unspecified; E03.9 Hypothyroidism, unspecified; K76.9 Liver disease, unspecified; Z79.899 Other long term (current) drug therapy; Z88.2 Allergy status to sulfonamides; Z98.890 Other specified postprocedural states; Z87.891 Personal history of nicotine dependence
CPT/HCPCS: 90870; J0330; J1885; J2405

== ENCOUNTER → 2025-02-24 06:02 | Outpatient (BNV) | payer MEDICARE, MEDICAID, SELFPAY | PROVIDERS: PCP Internal Medicine; Visit Provider Psychiatry & Neurology Psychiatry | DX: F33.2 Major depressive disorder, recurrent severe without psychotic features (principal) | CPT/HCPCS: 90870 ==

== ENCOUNTER 2025-03-06 11:57 | Outpatient (AMB) | payer MEDICARE, MEDICAID, SELFPAY ==
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
--- OUTSIDE RECORDS SUMMARY | 2025-03-06 14:03 | XMS_ITS | Patient Health Record ---
Author Organization [facility] Address [address] [facility] [address] [place] [address] Care Team Providers Care Wedding Planning Internship Name Role Phone RAMIREZ SHANIA Primary Care Provider Adam Craig Unavailable [phone] Jose Carlos Alvarez MD Unavailable Unavailable Allergies [...] Problem Status W/U Status Risk Notes Problem [id number] Irritable bowel syndrome with diarrhea (K58.0) Active confirmed Problem [id number] Internal hemorrhoid (K64.8) Active confirmed Plan Of Treatment Next Appt Details Provider Name:Adam Medrano , 05/19/2025 02:40:00 PM, [address], [address], [place], [address], Insurance Providers Payer Name Payer Address Payer Phone Subscriber Number Group Number Insured Name Patient Relationship to Insured Coverage Start Date Coverage End Date MEDICARE OF [place] [address] [place] [address] [id number] ROBYN DUFF Self - patient is the insured 3 MEDICAID OF [employer] [address] [place] [address] [id number] ROBYN DUFF Self - patient is the insured Medical (General) History Medical History History ICD Code Denies MT,DM,CVA,Lung disease,renal dise ase Bipolar depression Hypothyroidism Hyperlipidemia [...]
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
== END 2025-03-06 12:59 | disposition home or self-care (01) ==
LOC: HO.HOP 11:57
PROVIDERS: PCP Internal Medicine; Visit Provider Psychiatry & Neurology Psychiatry
DX: F25.0 Schizoaffective disorder, bipolar type (principal); R73.9 Hyperglycemia, unspecified
CPT/HCPCS: 90833; 99213

== ENCOUNTER → 2025-03-06 11:57 | Outpatient (BNVA) | payer MEDICARE, MEDICAID, SELFPAY | PROVIDERS: PCP Internal Medicine; Visit Provider Psychiatry & Neurology Psychiatry | DX: F25.0 Schizoaffective disorder, bipolar type (principal); R73.9 Hyperglycemia, unspecified | CPT/HCPCS: 99212 ==

== ENCOUNTER 2025-03-10 06:01 | Day surgery (SDC) | payer MEDICARE, SELFPAY ==
--- OUTSIDE RECORDS SUMMARY | 2025-03-06 15:12 | XMS_ITS | Clinical Summary ---
Author Organization [address] [facility] Address [address] [place] [address] Phone Care Team Providers Care Manufacturing Supervisor 2Nd Shift Name Role Phone Bashir Tadeo MD Primary Care Provider [phone]- [phone] Allergies Active Allergy Reactions Criticality Noted Date [...] laceration 10/04/2024 Schizoaffective disorder, bi polar type ([facility] V24, [facility] V28) 10/04/2024 Depression 10/04/2024 intermediate current use of clozapine 10/04/2024 Hip fracture requiring opera tive repair ([facility] V24, [facility] V28) 10/04/2024 Immunizations Name Administration Dates Next [...] PM EDT Office Visit Orthopedic Surgery - [place] [address] [address] Brent Hazel, DPM [address] [address] Health Maintenance Due Date Last Done Comments [...] on File Type Date Recorded Patient Infrastructure Director Expl anation Health Care Decision (hx) 01/16/2015 AD MONGE DIRECTIVE Health Care Decision (hx) 01/16/2015 AD MONGE DIRECTIVE Health Care Decision (hx) 01/16/2015 AD MONGE DIRECTIVE Care Teams Manufacturing Supervisor 2Nd Shift Relationship Specialty Start Date End Date Bashir Tadeo MD [facility] [address] [place] [address] PCP - General Internal Medicine 08/30/24
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
[2025-03-10] VITALS (7 sets, daily range): BP systolic 110–147; BP diastolic 54–67; PULSE 51–79; RESP 12–20; TEMP 36.6–36.8; O2SAT 96–100; BMI 33.0
[2025-03-10] MEDS: Lactated Ringers 1,000 ML 50 ML IVCONT (06:39)
--- NOTE | 2025-03-10 07:04 | MHC.SHP ---
Pre-Procedural Eval Section A - 24 Hr Update-Section A only Date of Service: 03/10/25 The patient is an INPATIENT: No Changes since office visit: Yes Changes in Medication and Yes Patient answered all questions; No Cold of Flu in the past 2 weeks and No New Medical Problems The patient has been examined within 24 hours of the surgical procedure. The History & Physical has been completed within 30 days and I have reviewed it.: Yes Section B - Complete if H&P > 30 days Chief Complaint: Major depressive disorder, recurrent, severe with Details of Present Illness: Stable mood, no new changes Relevant Family History (Specify if Yes): No Relevant Social History: None Present Medications: see Short Stay Collaborative assessment Medical History: No relevant PMH History of Previous Operations: No relevant previous surgery Allergies: Allergies Allergy/AdvReac Type Severity Reaction Status Date / Time Sulfa (Sulfonamide Allergy Mild UNKNOWN Verified 02/20/25 11:14 Antibiotics) Review of Systems Sugical H&P ROS: Negative: Cardiovascular, Respiratory, Genitourinary, Musculoskeletal and Eyes/Ears/Nose/Throat and Yes, Specify: Neurological (some st memory dysfx) and Psychiatric (some pi and depression) Exam Surgical H&P Exam: Normal: HEENT, Normal: Heart, Normal: Lungs and Normal: Neurological Exam Comment: 147/63 p 79 Plan Diagnosis/Plan: Unchanged I have reviewed the history and physical and performed a pertinent physical examination on my patient. No changes have occurred unless specified. Time Spent With Patient Time: Total time managing care of this patient today ____ minutes.
--- NOTE | 2025-03-10 07:06 | HO.ECTPROC ---
ECT Procedure Note Diagnosis/Treatment Date of Service: 03/10/25 Previous ECT Date: 02/24/25 Treatment: Maintenance Interval Clinical Notes: Patient was some periods of depression and paranoia. Some difficulty with short-term memory has been trying to taper down on benzodiazepine Time: Total time managing care of this patient today ____ minutes. ECT Settings Device: THYMATRON DGx Electrode Placement: Bifrontal Program/Pulse Width: 0.25 Energy Percent: 100 Seizure Duration By EEG (in seconds): 64 Medications Administration General Anesthetic: Etomidate Muscle Relaxant: Succinylcholine Ancillary Medications Analgesics: Torodol - Pre ECT Anti-emetics: Zofran - Pre ECT Airway Management Airway Management: Bag Mask Ventilation Treatment Recommendations No Changes Recommended: No change
== END 2025-03-10 08:29 | disposition home or self-care (01) ==
PROVIDERS: PCP Internal Medicine; Visit Provider Psychiatry & Neurology Psychiatry
PROC: (CPT 90870; principal; 2025-03-10 07:00)
DX: F33.2 Major depressive disorder, recurrent severe without psychotic features (principal); F22 Delusional disorders; E78.00 Pure hypercholesterolemia, unspecified; E03.9 Hypothyroidism, unspecified; K76.9 Liver disease, unspecified; Z79.899 Other long term (current) drug therapy; Z88.2 Allergy status to sulfonamides; Z98.890 Other specified postprocedural states; Z87.891 Personal history of nicotine dependence
CPT/HCPCS: 90870; J0330; J1596; J1885; J2405

== ENCOUNTER → 2025-03-10 06:01 | Outpatient (BNV) | payer MEDICARE, MEDICAID, SELFPAY | PROVIDERS: PCP Internal Medicine; Visit Provider Psychiatry & Neurology Psychiatry | DX: F33.2 Major depressive disorder, recurrent severe without psychotic features (principal) | CPT/HCPCS: 90870 ==

== ENCOUNTER 2025-04-04 13:38 | Outpatient (AMB) | payer MEDICARE, MEDICAID, SELFPAY ==
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
--- OUTSIDE RECORDS SUMMARY | 2025-04-04 14:45 | XMS_ITS | Clinical Summary ---
Author Organization 175 [facility] Address 175 [place] [address] Phone Care Team Providers Care Ios Software Engineer Name Role Phone Bashir Tadeo MD Primary Care Provider [phone] Allergies Active Allergy Reactions Criticality Noted Date [...] by mouth 2 (two) times a day. Active donepezil ODT (ARICEPT ODT) 10 mg [...] laceration 10/04/2024 Schizoaffective disorder, bi polar type [place] [place] [facility] [place] 10/04/2024 Depression 10/04/2024 halfway current use of clozapine 10/04/2024 Hip fracture requiring opera tive repair ([facility] [place] [facility] [place] 10/04/2024 Encounters Date Type Department Care Team Description 03/08/2025 1:30 PM EDT Office Visit Orthopedic [facility] [address] [address] Brent Hzael DPM Arthritis of foot, left (Primary Dx); 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, initial encounter ([facility] [place]); Neuritis from Last 3 Months Immunizations Name [...] - Inhaled Oxygen Concentration - - Weight 88 kg (194 lb) 03/08/2025 1:21 PM EDT Height 160 cm (5' 2.99 ) 03/08/2025 1:21 PM EDT Body Mass Index 34.37 03/08/2025 1:21 PM EDT Plan of Treatment Upcoming Encounters Date Type Department Care Team (Late st Contact Info) Description 05/08/2025 8:45 AM EDT Office Visit Orthopedic [facility] [address] [phone] Brent Hazel DPM [address] [place] [address] Health Maintenance Due Date Last Done Comments Breast Cancer Screening 1973 Hepatitis B Vaccines (1 of 3 - 19+ 3-dose series) 1992 Cervical Cancer Screening: Pap Smear 1994 Cholesterol Screening (Lipid Panel) 10/26/2022 Colorectal Cancer Screening: Colonoscopy 10/26/2022 Depression Screening 10/26/2022 HIV Screening 10/26/2022 Hepatitis C Screening 10/26/2022 Medicare Annual Wellness Visit 10/26/2022 Social Influencers of Health Screening 10/26/2022 COVID-19 Vaccine (7 - Moderna risk ) 01/19/2025 07/19/2024, 08/30/2023, 09/15/2022, Additional history exists DTaP,Tdap,and Td Vaccines (6 - Td or Tdap) 01/20/2035 01/20/2025, 07/19/2024, 03/17/2017, Additional history exists Zoster Vaccines Completed 05/23/2024, 03/05/2024 Influenza Vaccine Completed 07/19/2024, , 09/15/2022, Additional history exists Pneumococcal Vaccine: 50+ Years Completed 01/04/2025 Pneumococcal Vaccine: Pediatrics (0 to 5 Years) and At-Risk Patients (6 to 64 Years) Completed 01/04/2025 HIB Vaccines Aged Out No longer eligi [...] Documents on File Type Date Recorded Patient Seating Upholsterer Expl anation Health Care Decision (hx) 01/16/2015 AD MONGE DIRECTIVE Health Care Decision (hx) 01/16/2015 AD MONGE DIRECTIVE Health Care Decision (hx) 01/16/2015 AD MONGE DIRECTIVE Care Teams Ios Software Engineer Relationship Specialty Start Date End Date Bashir Tadeo MD [facility] [address] [place] [address] [address] [place] [address] PCP - General Internal Medicine 08/30/24
--- OUTSIDE RECORDS SUMMARY | 2025-04-04 14:45 | XMS_ITS | Patient Health Record ---
Author Organization [facility] Address [address] [facility] [address] [place] [address] Care Team Providers Care Hospital Orderly Name Role Phone RAMIREZ SHANIA Primary Care Provider Adam Craig Unavailable [phone] Jose Carlos Alvarez MD Unavailable Unavailable Allergies [...] Problem Status W/U Status Risk Notes Problem [id number] Irritable bowel syndrome with diarrhea (K58.0) Active confirmed Problem [id number] Internal hemorrhoid (K64.8) Active confirmed Plan Of Treatment Next Appt Details Provider Name:Adam Medrano , 05/19/2025 02:40:00 PM, [address], [address], [place], [address], Insurance Providers Payer Name Payer Address Payer Phone Subscriber Number Group Number Insured Name Patient Relationship to Insured Coverage Start Date Coverage End Date MEDICARE OF [place] [address] [place] [address] [id number] ROBYN DUFF Self - patient is the insured 3 [facility]ICA[facility] [address] [place] [phone] [id number] ROBYN DUFF Self - patient is the insured Medical (General) History Medical History History ICD Code Denies [place],DM,CVA,Lung disease,renal dise ase Bipolar depression Hypothyroidism Hyperlipidemia [...]
== END 2025-04-04 14:15 | disposition home or self-care (01) ==
LOC: HO.HOP 13:38
PROVIDERS: PCP Internal Medicine; Visit Provider Psychiatry & Neurology Psychiatry
DX: F25.0 Schizoaffective disorder, bipolar type (principal)
CPT/HCPCS: 99214

== ENCOUNTER → 2025-04-04 13:38 | Outpatient (BNVA) | payer MEDICARE, MEDICAID, SELFPAY | PROVIDERS: PCP Internal Medicine; Visit Provider Psychiatry & Neurology Psychiatry | DX: F25.0 Schizoaffective disorder, bipolar type (principal) | CPT/HCPCS: 99212 ==

== ENCOUNTER 2025-04-10 15:08 | Outpatient (REF) | payer MEDICARE, MEDICAID, SELFPAY ==
--- OUTSIDE RECORDS SUMMARY | 2025-04-10 15:11 | XMS_ITS | Patient Health Record ---
Author Organization [facility] Address 10 [facility] [address] [place] [address] Care Team Providers Care Intelligence Analyst Name Role Phone RAMIREZ SHANIA Primary Care Provider Adam Craig Unavailable [phone] Jose Carlos Alvarez MD Unavailable Unavailable Allergies [...] Problem Status W/U Status Risk Notes Problem [id number] Irritable bowel syndrome with diarrhea (K58.0) Active confirmed Problem [id number] Internal hemorrhoid (K64.8) Active confirmed Plan Of Treatment Next Appt Details Provider Name:Adam Medrano , 05/19/2025 02:40:00 PM, [address], [address], [place], [address], Insurance Providers Payer Name Payer Address Payer Phone Subscriber Number Group Number Insured Name Patient Relationship to Insured Coverage Start Date Coverage End Date MEDICARE OF [place] [address] [place] [address] [phone] [id number] ROBYN DUFF Self - patient is the insured 3 MEDICAID OF [facility] [address] [place] [address] [id number] ROBYN DUFF Self - patient is the insured Medical (General) History Medical History History ICD Code Denies [place],DM,CVA,Lung disease,renal dise ase Bipolar depression Hypothyroidism Hyperlipidemia [...]
--- OUTSIDE RECORDS SUMMARY | 2025-04-10 15:12 | XMS_ITS | Clinical Summary ---
Author Organization 175 [facility] Address 175 [place] [address] Phone Care Team Providers Care Dishwashing Machine Repairer Name Role Phone Bashir Tadeo MD Primary Care Provider [phone] Allergies Active Allergy Reactions Criticality Noted Date [...] laceration 10/04/2024 Schizoaffective disorder, bi polar type [place] [place] [facility] [place] 10/04/2024 Depression 10/04/2024 USP current use of clozapine 10/04/2024 Hip fracture requiring opera tive repair [place] [place] [facility] [place] 10/04/2024 Encounters Date Type Department Care Team Description 03/08/2025 1:30 PM EDT Office Visit Orthopedic Surgery [facility] [address] [phone] Brent Hazel DPM Arthritis of foot, left (Primary Dx); 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, initial encounter ([facility] [place] Neuritis from Last 3 Months Immunizations [...] 05/08/2025 8:45 AM EDT Office Visit Orthopedic [facility] [address] [phone] Brent Hazel DPM [address] [place] [address] Health Maintenance Due Date Last Done Comments [...] Documents on File Type Date Recorded Patient Watch Guard Gate Expl anation Health Care Decision (hx) 01/16/2015 AD MONGE DIRECTIVE Health Care Decision (hx) 01/16/2015 AD MONGE DIRECTIVE Health Care Decision (hx) 01/16/2015 AD MONGE DIRECTIVE Care Teams Dishwashing Machine Repairer Relationship Specialty Start Date End Date Bashir Tadeo MD [facility] [address] [place] [address] [address] [place] [address] PCP - General Internal Medicine 08/30/24
[2025-04-10 15:41] LABS: MANUAL DIFF FLAG NO
[2025-04-10 17:24] LABS: Basophils Absolute Auto 0.1 X10*3/uL (0.0-0.2); Basophils Percent Auto 0.7 % (0-2); Eosinophils Absolute Auto 0.2 X10*3/uL (0.0-0.4); Eosinophils Percent Auto 2.5 % (0-4); Hematocrit 41.2 % (37.0-47.0); Hemoglobin 13.5 g/dl (12.0-16.0); Imm Gran Abs Auto 0.02 X10*3/uL (0.00-0.03); Imm Gran Pct Auto 0.3 % (0.0-0.4); Lymphocytes Absolute Auto 1.4 X10*3/uL (1.2-4.9); Lymphocytes Percent Auto 19.2 % (20-40); Mean Corpuscular HGB Conc 32.8 g/dl (31.0-35.0); Mean Corpuscular Hemoglobin 30.8 pg (27.0-33.0); Mean Corpuscular Volume 94.1 fL (80.0-98.0); Mean Platelet Volume 10.5 fL (9.4-12.3); Monocytes Absolute Auto 0.6 X10*3/uL (0.1-1.2); Monocytes Percent Auto 8.3 % (2-11); Neutrophils Absolute Auto 5.2 x10*3/uL (2.0-8.3); Platelet Count 257 X10*3/uL (160-400); Red Blood Count 4.38 X10*6/uL (4.20-5.50); Red Cell Distribution Width 13.1 % (11.0-16.0); White Blood Count 7.5 X10*3/uL (4.8-10.8)
[2025-04-10 17:38] LABS: Lithium 0.73 mmol/L (0.60-1.20)
[2025-04-10 17:54] LABS: Alanine Aminotransferase 20 U/L (0-31); Albumin Level 4.8 g/dL (3.5-5.0); Alkaline Phosphatase 91 U/L (39-117); Anion Gap 14 (12-20); Aspartate Amino Transferase 24 U/L (5-31); Bilirubin Total 0.4 mg/dL (0.0-1.0); Blood Urea Nitrogen 11 mg/dL (9-16); Calcium 9.8 mg/dL (8.4-10.2); Carbon Dioxide 24 mmol/L (22-29); Chloride 103 mmol/L (96-108); Cholesterol 177 mg/dL (<200); Estimated Glomerular Filt Rate > 60; Glucose Fasting 84 mg/dL (60-99); HDL Cholesterol 73 mg/dL (>40); LDL Cholesterol Calculated 90 mg/dL (<100); Potassium 3.5 mmol/L (3.3-5.1); Sodium 137 mmol/L (135-145); Total Protein 7.6 g/dL (6.5-8.0); Triglycerides 70 mg/dL (<150)
[2025-04-10 18:00] LABS: TSH reflex Free T4 7.98 uIU/mL (0.32-4.0)
[2025-04-10 19:33] LABS: Free T4 (Free Thyroxine) 0.89 ng/dL (0.71-1.85)
[2025-04-11 10:38] LABS: Prolactin 36.6 ng/mL
== END 2025-04-10 15:09 | disposition home or self-care (01) ==
LOC: HO.LAB 15:08
PROVIDERS: PCP Internal Medicine; Visit Provider Psychiatry & Neurology Psychiatry
DX: F25.0 Schizoaffective disorder, bipolar type (principal); E03.9 Hypothyroidism, unspecified; Z78.0 Asymptomatic menopausal state; N64.3 Galactorrhea not associated with childbirth; E78.00 Pure hypercholesterolemia, unspecified
CPT/HCPCS: 36415; 80053; 80061; 80178; 84146; 84439; 84443; 85025

== ENCOUNTER 2025-04-12 08:56 | Day surgery (SDC) | payer MEDICARE, MEDICAID, SELFPAY ==
--- OUTSIDE RECORDS SUMMARY | 2025-02-27 07:54 | XMS_ITS | Clinical Summary ---
Author Organization 175 [facility] Address 175 [place] [address] Phone Care Team Providers Care Seismic Interpreter Name Role Phone Bashir Tadeo MD Primary Care Provider +1- [phone] Allergies Active Allergy Reactions Criticality Noted Date [...] 10/04/2024 Schizoaffective disorder, bipolar type Depression 10/04/2024 snf current use of clozapine 10/04/2024 Hip fracture [...] Upcoming Encounters Date Type Department Care Team ([facility] st Contact Info) Description 03/08/2025 1:30 PM EDT Office Visit Orthopedic Surgery - [place] [address] [address] Bretn Hazel, DPRebeka [address] [address] Health Maintenance Due Date Last Done Comments [...] Documents on File Type Date Recorded 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
--- OUTSIDE RECORDS SUMMARY | 2025-02-27 07:54 | XMS_ITS | Patient Health Record ---
Author Organization [facility] Address 10 [facility] [address] [place] [address] Care Team Providers Care Direct Support Staff Name Role Phone RAMIREZ SHANIA Primary Care Provider Adam Craig Unavailable [phone] Jose Carlos Alvarez MD Unavailable Unavailable Allergies [...] Problem Status W/U Status Risk Notes Problem [id number] Irritable bowel syndrome with diarrhea (K58.0) Active confirmed Problem 02979407 Internal hemorrhoid (K64.8) Active confirmed Plan Of Treatment Next Appt Details Provider Name:Adam Medrano , 05/19/2025 02:40:00 PM, [address], [address], [place], [address], Insurance Providers Payer Name Payer Address Payer Phone Subscriber Number Group Number Insured Name Patient Relationship to Insured Coverage Start Date Coverage End Date MEDICARE OF [place] [address] [place] [address] [id number] ROBYN DUFF Self - patient is the insured 3 MEDICAID OF [employer] [address] [place] [address] [id number] ROBYN DUFF Self - patient is the insured Medical (General) History Medical History History ICD Code Denies [place],DM,CVA,Lung disease,renal dise ase Bipolar depression Hypothyroidism Hyperlipidemia [...]
[2025-04-12 06:41] VITALS: BP 139/73; PULSE 78; RESP 20; TEMP 37.6; O2SAT 99
[2025-04-12 06:43] VITALS: BMI 32.6
[2025-04-12] MEDS: Lactated Ringers 1,000 ML 100 ML IVCONT (07:28)
--- NOTE | 2025-04-12 07:28 | MHC.SHP ---
Pre-Procedural Eval Section A - 24 Hr Update-Section A only Date of Service: 04/12/25 The patient is an INPATIENT: No Changes since office visit: Yes Changes in Medication and Yes Patient answered all questions; No Cold of Flu in the past 2 weeks and No New Medical Problems The patient has been examined within 24 hours of the surgical procedure. The History & Physical has been completed within 30 days and I have reviewed it.: Yes Section B - Complete if H&P > 30 days Chief Complaint: schizoaffective dx Details of Present Illness: Stable mood, no new changes Relevant Family History (Specify if Yes): No Relevant Social History: None Present Medications: see Short Stay Collaborative assessment Medical History: No relevant PMH History of Previous Operations: No relevant previous surgery Allergies: Allergies Allergy/AdvReac Type Severity Reaction Status Date / Time Sulfa (Sulfonamide Allergy Mild UNKNOWN Verified 02/20/25 11:14 Antibiotics) Review of Systems Sugical H&P ROS: Negative: Cardiovascular, Respiratory, Genitourinary, Musculoskeletal and Eyes/Ears/Nose/Throat and Yes, Specify: Neurological (some st memory dysfx mild muscle occ invol twitch ) and Psychiatric (some pi and depression) Exam Surgical H&P Exam: Normal: HEENT, Normal: Heart, Normal: Lungs and Normal: Neurological Exam Comment: 139/73 p 78 Plan Diagnosis/Plan: Unchanged I have reviewed the history and physical and performed a pertinent physical examination on my patient. No changes have occurred unless specified. Time Spent With Patient Time: Total time managing care of this patient today ____ minutes.
--- NOTE | 2025-04-12 07:33 | HO.ECTPROC ---
ECT Procedure Note Diagnosis/Treatment Date of Service: 04/12/25 Diagnosis: Schizoaffective Disorder Previous ECT Date: 03/10/25 Treatment: Maintenance Interval Clinical Notes: Patient has some periods of depression and paranoia. Some difficulty with short-term memory has been trying to taper down on benzodiazepine now bid some insomnia some isolated muscle twitching muscle jerking not seen on exam continues to feel ECT helps with mood and paranoia Time: Total time managing care of this patient today ____ minutes. ECT Settings Device: THYMATRON DGx Electrode Placement: Bifrontal Program/Pulse Width: 0.25 Energy Percent: 100 Seizure Duration By EEG (in seconds): 81 Medications Administration General Anesthetic: Etomidate Muscle Relaxant: Succinylcholine Ancillary Medications Analgesics: Torodol - Pre ECT Anti-emetics: Zofran - Pre ECT Airway Management Airway Management: Bag Mask Ventilation Treatment Recommendations Energy Percent: 60 Pt Tolerated Procedure w/o Issue: Yes
[2025-04-12 08:05] VITALS: BP 185/65; PULSE 47; RESP 17; TEMP 36.6; O2SAT 98
[2025-04-12 08:10] VITALS: BP 112/53; PULSE 61; RESP 14; O2SAT 100
[2025-04-12 08:15] VITALS: BP 108/69; PULSE 58; RESP 14; O2SAT 100
[2025-04-12 08:20] VITALS: BP 115/67; PULSE 62; RESP 14; O2SAT 100
[2025-04-12 08:33] VITALS: BP 112/61; PULSE 62; RESP 14; TEMP 36.9; O2SAT 98
--- NOTE | 2025-04-12 09:00 | P.CONAN_ITS ---
HPI - Anesthesia Eval Consult details Narrative: ect PMFSH Active Problems Active Problems: All Active Problems Galactorrhea (Acute) Annual wellness visit (Acute) Annual physical exam (Acute) Irritable bowel syndrome with diarrhea (Acute) Incomplete bladder emptying (Acute) Hyperglycemia (Acute) Allergic rhinitis (Acute) assisted current use of clozapine (Acute) Tinea pedis (Acute) Left foot pain (Acute) Shortness of breath (Acute) Hyperkalemia (Acute) Diarrhea (Acute) Palpitation (Acute) Eczema (Acute) Postmenopausal bleeding (Acute) Amenorrhea (Acute) Menopause (Acute) Complex ovarian cyst (Acute) Elevated blood pressure reading without diagnosis of hypertension (Acute) Hypercholesterolemia (Acute) Hypothyroid (Acute) Schizoaffective disorder, bipolar type (Chronic) Past Medical History Medical History Pre-op examination Well woman exam Left foot pain Preoperative clearance Hip fracture requiring operative repair assisted current use of 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 Father No problems noted. Family history of problems with anesthesia: No Surgical History Surgical History S/P foot surgery, left History of surgery on lower extremity History of hip replacement History of tracheostomy History of hip surgery Status post aortic coarctation stent placement H/O rhinoplasty History of Problems with Anesthesia: No Social History Social History Housing: House Are you a primary rn patient care to a significant other at home: No Do you presently have visiting nurse or other home services: No Alcohol intake: never Patient Tobacco Use Status: Former Tobacco user Tobacco use type: Cigarette e-Cigarette/Vaping Use: Never Used Second Hand Smoke Exposure: No Advance Directives: No Advance Directives Information Provided: Yes service: No Current occupational status: disabled Cognitive needs: No Hearing needs: No Vision needs: Yes (Glasses) Meds Allergies Allergy/AdvReac Type Severity Reaction Status Date / Time Sulfa (Sulfonamide Allergy Mild UNKNOWN Verified 02/20/25 11:14 Antibiotics) Active Medications: Current Medications Lactated Ringer's (Lr) 1,000 mls @ 100 mls/hr IVCONT .Q10H KEHINDE Last Admin: 04/12/25 07:28 Dose: 100 mls/hr Home Medications ?Medication ?Instructions ?Recorded ?Confirmed ?Last Taken ?Type cholecalciferol (vitamin D3) 25 25 mcg PO DAILY 06/23/23 04/04/25 Unknown Histo ry mcg (1,000 unit) capsule Exam Height,Weight and Vital Signs: Height 5 ft 3 in Weight 83.461 kg Last Vital Signs Temp 98.4 F 04/12/25 08:33 Pulse 62 04/12/25 08:33 Resp 14 04/12/25 08:33 BP 112/61 04/12/25 08:33 Pulse Ox 98 04/12/25 08:33 O2 Del Method Room Air 04/12/25 08:33 O2 Flow Rate 2 04/12/25 08:20 Airway Mallampati Class: II TM Dist: >3cm Neck ROM: Full Heart: rrr Lungs: cta Assessment and Plan Assessment Anesthesia Assessment: Anesthesia Plan Discussed and Chart Reviewed Final Anesthetic Review Family History of Problems with Anesthesia: No History of Problems with Anesthesia: No NPO: Yes ASA Class: III Final Preanesthetic Review: No Changes in Pt Med Stat, Meds/Allgs Chart Reviewed, Consent Obtained/Reviewed and Anes Risks/Benef Reviewed Patient Risk: Intermediate Procedure Risk: Low Anesthetic Plan Anesthetic Plan: GA Disposition: Standard PACU
== END 2025-04-12 09:10 | disposition home or self-care (01) ==
LOC: HO.SSS 08:57
PROVIDERS: PCP Internal Medicine; Visit Provider Psychiatry & Neurology Psychiatry
PROC: (CPT 90870; principal; 2025-04-12 08:00)
DX: F25.1 Schizoaffective disorder, depressive type (principal); F22 Delusional disorders; R25.3 Fasciculation; R41.3 Other amnesia; Z79.899 Other long term (current) drug therapy; Z87.891 Personal history of nicotine dependence
CPT/HCPCS: 90870; J0330; J1885; J2405; J2704

== ENCOUNTER → 2025-04-12 08:56 | Outpatient (BNV) | payer MEDICARE, MEDICAID, SELFPAY | PROVIDERS: PCP Internal Medicine; Visit Provider Psychiatry & Neurology Psychiatry | DX: F33.2 Major depressive disorder, recurrent severe without psychotic features (principal) | CPT/HCPCS: 90870 ==

== ENCOUNTER 2025-04-19 11:10 | Outpatient (AMB) | payer MEDICARE, MEDICAID, SELFPAY ==
--- NOTE | 2025-04-19 11:16 | MHC.OFFVIS ---
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 Complaining of an episode of vaginal bleeding after 1.5 years of amenorrhea Last Pap/HPV was negative in 02/12 Last Mammogram was BI-RADS 1 in 12/17 No previous screening Colonoscopy, next screening colonoscopy scheduled in few weeks [facility] Medical History Well woman exam Pre-op examination Left foot pain Preoperative clearance Hip fracture requiring operative repair penitentiary current use of clozapine Hypercholesterolemia Hypothyroid Liver laceration Liver problem Schizoaffective disorder, bipolar type Depression Elevated cholesterol Surgical History S/P foot surgery, left History of surgery on lower extremity History of hip replacement History of tracheostomy History of hip surgery Status post aortic coarctation stent placement H/O rhinoplasty Family History Mother No problems noted. Father No problems noted. Social History Housing: House Are you a primary critical care nurse practitioner to a significant other at home: No Do you presently have visiting nurse or other home services: No Alcohol intake: never Patient Tobacco Use Status: Former Tobacco user Tobacco use type: Cigarette e-Cigarette/Vaping Use: Never Used Second Hand Smoke Exposure: No service: No Current occupational status: disabled Cognitive needs: No Hearing needs: No Vision needs: Yes (Glasses) Female Reproductive History Menstrual Age of Menarche: 10 Review of Systems Const All systems reviewed & are unremarkable except as noted in HPI and below Card Reports as per HPI Resp Reports as per HPI GI Reports as per HPI and Reports no additional complaints Reports as per HPI Physical Exam Vital Signs: Last Vital Signs BP 130/72 04/19/25 11:17 BMI result Body Mass Index 34.7 Const General: cooperative, healthy appearing and comfortable Chest Chest palpation & inspection: normal inspection of the chest and normal palpation of entire chest wall Breast/axilla inspection: normal inspection of the breasts and normal inspection of the axillae Breast/axilla palpation: normal palpation of the breasts, normal palpation of the axillae and no axillary lymphadenopathy Resp Effort & Inspection: normal respiratory effort Auscultation: clear to auscultation bilaterally Percussion: percussion normal Cardio Palpation: normal PMI Rate: regular rate Rhythm: regular rhythm Heart sounds: no murmurs and no rubs Peripheral pulses: Peripheral pulses 2+ throughout GI Inspection: Yes normal to inspection Palpation (GI): Soft to palpation, nontender, no guarding, not rigid and No hepatosplenomegaly present Percussion: Yes normal to percussion Auscultation: normal bowel sounds Rectal Exam - Female: deferred General: Yes bladder normal to palpation External Female Exam: No lesion Speculum Exam - Vagina: normal appearance of the vagina, normal palpation, normal vaginal discharge and not erythematous Speculum Exam - Cervix: normal appearance of the cervix and normal palpation Bimanual exam- vagina & uterus: normal bimanual exam, normal palpation, uterine size normal, bladder normal to palpation, consistency normal and normal palpation Bimanual Exam- Adnexa, other: normal adnexae, no masses and no tenderness Assessment & Plan Assessment & Plan (1) Well woman exam: Code(s): Z01.419 - Encounter for gynecological examination (general) (routine) without abnormal findings Category: Medical Plan: Co testing not indicated this year. Counseled the patient about the recommended dietary allowance of 1200 mg of Calcium & 600 IU of vitamin D. Instructions given the patient to schedule next screening Mammogram in 12/18. The patient is scheduled in few weeks for screening colonoscopy . The patient was instructed to perform monthly self-breast exams and schedule annual exam in a year. All questions answered and the patient verbalized understanding. (2) Postmenopausal bleeding: Code(s): N95.0 - Postmenopausal bleeding Category: Medical Plan: Discussed with the patient the differential diagnosis of post menopausal bleeding with normal pelvic exam including but not limited to, endometrial hyperplasia, cancer, polyps and other causes; recommended ultrasound to measure the endometrial stripe; discussed with the patient that if the endometrial thickness is 4 mm or less the negative predictive value of endometrial pathology is 99%, otherwise If endometrial thickness is more than 4 mm will proceed with endometrial sampling versus hysteroscopy D&C polypectomy depending on the ultrasound findings. Instructed the patient to schedule an ultrasound with a follow-up appointment in 2 weeks. All questions answered, the patient verbalized understanding and agreed with the plan. This note was generated with a voice recognition program. Some errors may have been overlooked during the review of this note. Sometimes these errors may affect the content or meaning of a given sentence. Orders: Orders US pelvic and transvaginal Today N95.0 - Postmenopausal bleeding Coding Level of Care Code Est Pt Prev Care 40-64y([address]) Diagnoses Well woman exam Z01.419 Postmenopausal bleeding N95.0
[2025-04-19 11:17] VITALS: BP 130/72; BMI 34.7
--- OUTSIDE RECORDS SUMMARY | 2025-04-19 12:13 | XMS_ITS | Patient Health Record ---
Author Organization [facility] Address 10 [facility] [address] [place] [address] Care Team Providers Care Gantry Rigger Name Role Phone RAMIREZ SHANIA Primary Care Provider Adam Craig Unavailable [phone] Jose Carlos Alvarez MD Unavailable Unavailable Allergies [...] Problem Status W/U Status Risk Notes Problem [id number] Irritable bowel syndrome with diarrhea (K58.0) Active confirmed Problem 94600481 Internal hemorrhoid (K64.8) Active confirmed Plan Of Treatment Next Appt Details Provider Name:Adam Medrano , 05/19/2025 02:40:00 PM, [address], [address], [place], [address], Insurance Providers Payer Name Payer Address Payer Phone Subscriber Number Group Number Insured Name Patient Relationship to Insured Coverage Start Date Coverage End Date MED[place]ARE OF [place] [address] [place] [address] [id number] ROBYN DUFF Self - patient is the insured 3 [facility]ICAID OF [facility] [address] [place] [address] [id number] ROBYN DUFF Self - patient is the insured Medical (General) History Medical History History ICD Code Denies [place],DM,CVA,Lung disease,renal dise ase Bipolar depression Hypothyroidism Hyperlipidemia [...]
== END 2025-04-19 11:39 | disposition home or self-care (01) ==
LOC: HO.HWS 11:10
PROVIDERS: PCP Internal Medicine; Visit Provider Obstetrics & Gynecology
DX: Z72.51 High risk heterosexual behavior (principal); N95.0 Postmenopausal bleeding
CPT/HCPCS: 99213; G0101

== ENCOUNTER → 2025-04-19 11:10 | Outpatient (BNVA) | payer MEDICARE, MEDICAID, SELFPAY | PROVIDERS: PCP Internal Medicine; Visit Provider Obstetrics & Gynecology | DX: Z01.419 Encounter for gynecological examination (general) (routine) without abnormal findings (principal); N95.0 Postmenopausal bleeding | CPT/HCPCS: 99212; G0101 ==

== ENCOUNTER → 2025-05-02 14:09 | Outpatient (BNVA) | payer MEDICARE, MEDICAID, SELFPAY | PROVIDERS: PCP Internal Medicine; Visit Provider Psychiatry & Neurology Psychiatry | DX: F25.0 Schizoaffective disorder, bipolar type (principal); E78.00 Pure hypercholesterolemia, unspecified; E03.9 Hypothyroidism, unspecified; Z78.0 Asymptomatic menopausal state; N64.3 Galactorrhea not associated with childbirth ==

== ENCOUNTER 2025-05-24 05:59 | Day surgery (SDC) | payer MEDICARE, MEDICAID, SELFPAY ==
--- OUTSIDE RECORDS SUMMARY | 2025-05-16 10:48 | XMS_ITS | Patient Health Record ---
Author Organization [facility] Address 10 [facility] [address] [place] [address] Care Team Providers Care Tile Conduit Layer Name Role Phone RAMIREZ SHANIA Primary Care Provider Adam Craig Unavailable [phone] Jose Carlos Alvarez MD Unavailable Unavailable Allergies [...] Problem Status W/U Status Risk Notes Problem [id number] Irritable bowel syndrome with diarrhea (K58.0) Active confirmed Problem 58115517 Internal hemorrhoid (K64.8) Active confirmed Plan Of Treatment Next Appt Details Provider Name:Adam Medrano , 05/19/2025 02:40:00 PM, [address], [address], [place], [address], Insurance Providers Payer Name Payer Address Payer Phone Subscriber Number Group Number Insured Name Patient Relationship to Insured Coverage Start Date Coverage End Date MEDICARE OF [place] [address] [place] [address] [id number] ROBYN DUFF Self - patient is the insured 3 MEDICAID OF [facility] [address] [place] [phone] [id number] ROBYN DUFF Self - patient is the insured Medical (General) History Medical History History ICD Code Denies [place],DM,CVA,Lung disease,renal dise ase Bipolar depression Hypothyroidism Hyperlipidemia [...]
[2025-05-24] VITALS (8 sets, daily range): BP systolic 101–149; BP diastolic 43–81; PULSE 53–81; RESP 12–22; TEMP 36.1–36.8; O2SAT 94–100; BMI 32.4
--- NOTE | 2025-05-24 | ECG_ITS ---
Test Reason : preop Blood Pressure : */* mmHG Vent. Rate : 57 BPM Atrial Rate : 57 BPM P-R Int : 204 ms QRS Dur : 94 ms QT Int : 412 ms P-R-T Axes : 44 -11 21 degrees QTcB Int : 401 ms Sinus bradycardia Possible Inferior infarct (cited on or before 15-Jul-2024) T wave abnormality, consider anterior ischemia Abnormal ECG When compared with ECG of 20-Dec-2024 11:40, T wave inversion now evident in Anterior leads Referred By: Jose Carlos Alvarez Electronically Signed By: ARIANE LOONEY MD
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
--- NOTE | 2025-05-24 06:59 | MHC.SHP ---
Pre-Procedural Eval Section A - 24 Hr Update-Section A only Date of Service: 05/24/25 The patient is an INPATIENT: No Changes since office visit: Yes Changes in Medication and Yes Patient answered all questions; No Cold of Flu in the past 2 weeks and No New Medical Problems The patient has been examined within 24 hours of the surgical procedure. The History & Physical has been completed within 30 days and I have reviewed it.: Yes Section B - Complete if H&P > 30 days Chief Complaint: depression Details of Present Illness: Stable mood, no new changes Relevant Family History (Specify if Yes): No Relevant Social History: None Present Medications: see Short Stay Collaborative assessment Medical History: No relevant PMH History of Previous Operations: No relevant previous surgery Allergies: Allergies Allergy/AdvReac Type Severity Reaction Status Date / Time Sulfa (Sulfonamide Allergy Mild UNKNOWN Verified 04/19/25 11:19 Antibiotics) Review of Systems Sugical H&P ROS: Negative: Cardiovascular, Respiratory, Genitourinary, Musculoskeletal and Eyes/Ears/Nose/Throat and Yes, Specify: Neurological (some st memory dysfx mild muscle occ invol twitch ) and Psychiatric (some pi and depression) Exam Surgical H&P Exam: Normal: HEENT, Normal: Heart, Normal: Lungs and Normal: Neurological Exam Comment: 140/67 p 78 alert oriented not confused Plan Diagnosis/Plan: Unchanged I have reviewed the history and physical and performed a pertinent physical examination on my patient. No changes have occurred unless specified. Time Spent With Patient Time: Total time managing care of this patient today ____ minutes.
--- NOTE | 2025-05-24 07:06 | HO.ECTPROC ---
ECT Procedure Note Diagnosis/Treatment Date of Service: 05/31/25 Diagnosis: Bipolar disorder Previous ECT Date: 03/10/25 Treatment: Maintenance Interval Clinical Notes: Pt with some periods of feeling vacant denies feeling overly depressed some pi discussed with pt cking ua and labs to see if reason for sx Time: Total time managing care of this patient today ____ minutes. ECT Settings Device: THYMATRON DGx Electrode Placement: Bifrontal Program/Pulse Width: 0.25 Energy Percent: 100 Medications Administration General Anesthetic: Etomidate Muscle Relaxant: Succinylcholine Ancillary Medications Analgesics: Torodol - Pre ECT Anti-emetics: Zofran - Pre ECT Airway Management Airway Management: Bag Mask Ventilation Treatment Recommendations Energy Percent: 60 Pt Tolerated Procedure w/o Issue: Yes
[2025-05-24] MEDS: Lactated Ringers 1,000 ML 100 ML IVCONT (07:07)
[2025-05-24 08:34] LABS: MANUAL DIFF FLAG NO
[2025-05-24 08:38] LABS: Hematocrit 38.9 % (37.0-47.0); Hemoglobin 13.1 g/dl (12.0-16.0); Imm Gran Abs Auto 0.02 X10*3/uL (0.00-0.03); Imm Gran Pct Auto 0.3 % (0.0-0.4); Lymphocytes Absolute Auto 0.7 X10*3/uL (1.2-4.9); Mean Corpuscular HGB Conc 33.7 g/dl (31.0-35.0); Mean Corpuscular Hemoglobin 31.0 pg (27.0-33.0); Mean Corpuscular Volume 92.2 fL (80.0-98.0); NRBC Abs Auto 0.000 X10*3/uL (0.0-0.012); NRBC Pct Auto 0.0 /100WBC (0.0-0.2); Platelet Count 179 X10*3/uL (160-400); Red Blood Count 4.22 X10*6/uL (4.20-5.50); White Blood Count 6.8 X10*3/uL (4.8-10.8)
[2025-05-24 08:47] LABS: Appearance Urine Clear; Glucose Urine UA Negative (Negative); PH 5.5 (5.0-9.0); Specific Gravity - Urine 1.020 (1.005-1.025); UMIC TRIGGER UACC YES
[2025-05-24 08:48] LABS: Lithium 0.62 mmol/L (0.60-1.20)
[2025-05-24 08:51] LABS: Alanine Aminotransferase 20 U/L (0-31); Albumin Level 4.8 g/dL (3.5-5.0); Alkaline Phosphatase 77 U/L (39-117); Anion Gap 10 (12-20); Aspartate Amino Transferase 24 U/L (5-31); Blood Urea Nitrogen 14 mg/dL (9-16); Calcium 9.4 mg/dL (8.4-10.2); Carbon Dioxide 26 mmol/L (22-29); Chloride 109 mmol/L (96-108); Creatinine Clr Calc Pharmacy 80.8; Estimated Glomerular Filt Rate > 60; Potassium 4.1 mmol/L (3.3-5.1); Sodium 141 mmol/L (135-145); Total Protein 7.3 g/dL (6.5-8.0)
[2025-05-24 08:58] LABS: UACC Culture Trigger YES
[2025-05-24 09:26] LABS: Folate 13.8 ng/mL (> or = 4.0); Vitamin B12 881 pg/mL (200-900)
== END 2025-05-24 08:39 | disposition home or self-care (01) ==
PROVIDERS: PCP Internal Medicine; Visit Provider Psychiatry & Neurology Psychiatry
PROC: (CPT 90870; principal; 2025-05-24 08:00)
DX: F31.9 Bipolar disorder, unspecified (principal); R03.0 Elevated blood-pressure reading, without diagnosis of hypertension; E78.00 Pure hypercholesterolemia, unspecified; E03.9 Hypothyroidism, unspecified; Z79.899 Other long term (current) drug therapy; Z88.2 Allergy status to sulfonamides; Z87.891 Personal history of nicotine dependence
CPT/HCPCS: 36415; 80053; 80178; 81001; 82607; 82746; 85025; 87086; 90870; 93005; J0330; J1885; J2405

== ENCOUNTER → 2025-05-24 05:59 | Outpatient (BNV) | payer MEDICARE, MEDICAID, SELFPAY | PROVIDERS: PCP Internal Medicine; Visit Provider Psychiatry & Neurology Psychiatry | DX: F33.2 Major depressive disorder, recurrent severe without psychotic features (principal) | CPT/HCPCS: 90870 ==

== ENCOUNTER → 2025-05-24 07:39 | Outpatient (BNV) | payer MEDICARE, MEDICAID, SELFPAY | PROVIDERS: PCP Internal Medicine; Visit Provider Internal Medicine Cardiovascular Disease | DX: R00.1 Bradycardia, unspecified (principal) | CPT/HCPCS: 93010 ==

== ENCOUNTER 2025-06-02 11:32 | Outpatient (REF) | payer MEDICARE, MEDICAID, SELFPAY ==
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
--- NOTE | ~2025-06-02 | US_ITS ---
EXAMINATION: US PELVIS CLINICAL INFORMATION: Postmenopausal bleeding. COMPARISON: 10/24/2024, 06/23/2023. TECHNIQUE: Ultrasound of the pelvis is performed using both transabdominal and transvaginal transducers along with Doppler. Transvaginal imaging is performed due to inadequate visualization transabdominally. FINDINGS: Uterus: The uterus is retroverted, retroflexed, and measures 6.6 x 3.7 x 3.6 cm. Normal-appearing cervix with small nabothian cysts. The double wall endometrial thickness is 2 mm. It is uniform. The uterus is smooth in contour and has heterogeneous myometrial echogenicity. No visible fibroid. Adnexa: Both ovaries are visualized. There is normal color flow to the adnexa. There is no ovarian torsion. There is no pelvic ascites or fluid collection. Right ovary measures 1.4 x 0.7 x 0.7 cm. Volume = 0.4 mL. Normal sonographic appearance. Left ovary measures 2.0 x 0.9 x 1.4 cm. Volume = 1.3 mL. Normal sonographic appearance. US/US pelvic and transvaginal IMPRESSION: 1. Normal endometrium at 2 mm thickness. 2. Heterogeneous myometrium without focal fibroid. This finding is nonspecific. 3. Normal ovaries bilaterally. No adnexal abnormalities. Electronically signed by: Artur Lees MD 06/02/2025 12:57 PM EDT
--- OUTSIDE RECORDS SUMMARY | 2025-06-02 12:02 | XMS_ITS | Clinical Summary ---
Author Organization 175 [facility] Address [address] [place] [address] Phone Care Team Providers Care Robotype Operator Name Role Phone Bashir Tadeo MD Primary Care Provider +1- [phone] Allergies Active Allergy Reactions Criticality Noted Date [...] laceration 10/04/2024 Schizoaffective disorder, bi polar type ([facility] V24, [facility] V28) 10/04/2024 Depression 10/04/2024 [facility] current use of clozapine 10/04/2024 Hip fracture requiring opera tive repair ([facility] V24, [facility] V28) 10/04/2024 Encounters Date Type Department Care Team Description 03/08/2025 1:30 PM EDT Office Visit Orthopedic Surgery - [address] [id number] Brent Hazel, DPM Arthritis of foot, left (Primary Dx); 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, initial encounter ([facility] V24); Neuritis from Last 3 [...] 2025 07/19/2024, 08/30/2023, 09/15/2022, Additional history exists Influenza Vaccine (#1) 2025 , 08/30/2023, 09/15/2022, Additional history exists DTaP,Tdap,and Td Vaccines (6 - Td or Tdap) 01/20/2035 01/20/2025, 07/19/2024, 03/17/2017, Additional history exists Zoster Vaccines Completed 05/23/2024, 03/05/2024 Pneumococcal Vaccine: 50+ Years Completed 01/04/2025 Pneumococcal Vaccine: Pediatrics (0 to 5 Years) and At-Risk Patients (6 to 49 Years) Completed 01/04/2025 HIB Vaccines Aged Out [...] Documents on File Type Date Recorded Patient Waterworks Supervisor Expl anation Health Care Decision (hx) 01/16/2015 AD MONGE DIRECTIVE Health Care Decision (hx) 01/16/2015 AD MONGE DIRECTIVE Health Care Decision (hx) 01/16/2015 AD MONGE DIRECTIVE Care Teams Robotype Operator Relationship Specialty Start Date End Date Bashir Tadeo MD [facility] [address] [place] [address] [address] [place] [address] PCP - General Internal Medicine 08/30/24
== END 2025-06-02 11:33 | disposition home or self-care (01) ==
LOC: HO.US 11:32
PROVIDERS: PCP Internal Medicine; Visit Provider Obstetrics & Gynecology
DX: N95.0 Postmenopausal bleeding (principal)
CPT/HCPCS: 76830; 76856

== ENCOUNTER → 2025-06-02 11:33 | Outpatient (BNV) | payer MEDICARE, MEDICAID, SELFPAY | PROVIDERS: PCP Internal Medicine; Visit Provider Radiology Diagnostic Radiology | DX: N85.9 Noninflammatory disorder of uterus, unspecified (principal); N95.0 Postmenopausal bleeding | CPT/HCPCS: 76830; 76856 ==

== ENCOUNTER 2025-06-13 09:50 | Outpatient (AMB) | payer MEDICARE, MEDICAID, SELFPAY ==
--- NOTE | 2025-06-13 10:13 | MHC.OFFVIS ---
Vital Signs 06/13/25 10:20 Height 5 ft 3 in Weight 196 lb BMI 34.7 Intake Visit Reasons: Ultrasound follow up/ ? EMB Supervisor Spinning Required: No Information Interpreted: non-clinical & clinical Licensed Real Estate Broker: Licensed Real Estate Broker Present (Megan MEREDITH) Accompanied by: Self / Same As Patient Allergies Sulfa (Sulfonamide Antibiotics) Allergy (Mild, Verified 06/13/25 10:21) UNKNOWN HPI Comments Details: Presenting for pelvic ultrasound follow-up regarding an episode of postmenopausal bleeding. Pelvic ultrasound showed the following: IMPRESSION: 1. Normal endometrium at 2 mm thickness. 2. Heterogeneous myometrium without focal fibroid. This finding is nonspecific. 3. Normal ovaries bilaterally. No adnexal abnormalities. 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 Father No problems noted. Social History Housing: House Are you a primary wild animal caretaker to a significant other at home: No Do you presently have visiting nurse or other home services: No Alcohol intake: never Patient Tobacco Use Status: Former Tobacco user Tobacco use type: Cigarette e-Cigarette/Vaping Use: Never Used Second Hand Smoke Exposure: No service: No Current occupational status: disabled Cognitive needs: No Hearing needs: No Vision needs: Yes (Glasses) Female Reproductive History Menstrual Age of Menarche: 10 Review of Systems Const All systems reviewed & are unremarkable except as noted in HPI and below Reports as per HPI and Reports no additional complaints GI Reports no additional complaints Reports no additional complaints Physical Exam Vital Signs: BMI result Body Mass Index 34.7 Assessment & Plan Assessment & Plan (1) Postmenopausal bleeding: Code(s): N95.0 - Postmenopausal bleeding Category: Medical Plan: Discussed with the patient the results of the pelvic ultrasound showing an endometrial stripe thickness of 2 mm. Explained to the patient with an endometrial stripe of 4 mm &/or less, there is a high negative predictive value in detecting endometrial pathology including endometrial hyperplasia, polyps or malignancy. Therefore, there is no indication for endometrial sampling. Discussed with the patient the sensitivity, specificity, and positive and the negative predictive value of using ultrasound in detecting endometrial pathology. The patient was instructed to call if bleeding recurs, will proceed with endometrial sampling out endometrial pathology. All questions were answered and the patient verbalized understanding and agreed with the plan. Coding Level of Care Code Est Pt Level 3 (50338) Diagnoses Postmenopausal bleeding N95.0
[2025-06-13 10:20] VITALS: BMI 34.7
--- OUTSIDE RECORDS SUMMARY | 2025-06-13 10:36 | XMS_ITS | Clinical Summary ---
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 10/04/2024 Hip fracture requiring opera tive repair ([facility] V24, [facility] V28) 10/04/2024 Immunizations Name Administration Dates Next [...] Panel) 10/26/2022 Colorectal Cancer Screening: Colonoscopy 10/26/2022 HIV Screening 10/26/2022 Hepatitis C Screening 10/26/2022 Medicare Annual Wellness Visit 10/26/2022 Social Influencers of Health Screening 10/26/2022 Depression Screening 11/23/2024 COVID-19 Vaccine (7 - Moderna risk season) 2025 07/19/2024, 08/30/2023, 09/15/2022, Additional history exists Influenza Vaccine (#1) 2025 , 08/30/2023, 09/15/2022, Additional history exists DTaP,Tdap,and Td Vaccines (6 - Td or Tdap) 01/20/2035 01/20/2025, 07/19/2024, 03/17/2017, Additional history exists Zoster Vaccines Completed 05/23/2024, 03/05/2024 Pneumococcal Vaccine: 50+ Years Completed 01/04/2025 HIB Vaccines Aged Out No [...] Documents on File Type Date Recorded Patient Edi Coordinator Expl anation Health Care Decision (hx) 01/16/2015 AD MONGE DIRECTIVE Health Care Decision (hx) 01/16/2015 AD MONGE DIRECTIVE Health Care Decision (hx) 01/16/2015 AD MONGE DIRECTIVE Care Teams Collision Repairer Relationship Specialty Start Date End Date Bashir Tadeo MD [facility] [address] [place] [address] [address] [facility] [address] PCP - General Internal Medicine 08/30/24
--- OUTSIDE RECORDS SUMMARY | 2025-06-13 10:36 | XMS_ITS | Patient Health Record ---
Author Organization [facility] Address [address] [place] [id number] Care Team Providers Care Digital Ad Trafficker Name Role Phone RAMIREZ, KARTIK Primary Care Provider Adam Craig Unavailable [phone] Kim GAN, Jose Carlos Unavailable Unavailable Allergies Allergen (clinical drug ingredient) Drug/Non Drug Allergy documented on EMR Reaction Allergy Type Onset Date Status Sulfa Unknown Drug Allergy Active Reason For Referral No Information Medications Medication SIG (Take, Route, Frequency, Duration) Notes Start Date End Date Status Atorvastatin Calcium 20 MG Oral for 90 Days Active clonazePAM 0.5 MG TAKE 1 TABLET BY YARELI TH IN THE MORNING , 1 TAB IN THE AFTERNOON, AND 2 TABS AT BEDTIME DIRECTED Oral for 30 Days Active Simvastatin 40 MG 1 tablet in the evening Orally Once a day Not-Taking fluvoxaMINE Maleate 100 MG Oral for 90 Days Active Levothyroxine Sodium 112 MCG Oral for 30 Days Active Peetz Carbonate 300 MG Oral for 90 Days Active Donepezil HCl 10 MG Oral for 30 Days Active Vraylar 6 MG Oral for 30 Days Active OLANZapine 10 MG Oral for 30 Days Not-Taking Perphenazine 8 MG 1 tablet Orally Once a day Not-Taking Ativan 0.5 MG 1 tablet as needed Orally Once a day Not-Taking Imodium A-D 2 MG Take 1 or 2 every 4 hours for diarrhea when needed. You can also take it before any activities or treatments to prevent diarrhea. Orally Every 4 hours if needed for diarrhea for 30 days 05/19/2025 Active Diphenoxylate-Atropine 2.5-0.025 MG 1 Orally QAM Not-Taking Loperamide HCl 2 MG 1 capsule as needed Orally 4 times a day 05/19/2025 Active LaMICtal 150 MG 1 tablet Orally once a day Not-Taking Immunizations Vaccine Route Administration Date Status Comme nts Flu vaccine no Preserv 3 and > Unknown 07/29/2017 Admin istered Influenza Unknown 09/13/2024 Administered Social History Tobacco Use: Social History Observation Description Date Details (start date - stop date) Former Smoker NA - NA Alcohol Screen Question Answer Notes Did you have a drink containing alcohol in the p ast year? No Points 0 Interpretation Negative Tobacco Control (Standard) Question Answer Notes Tobacco use: Former smoker Section Notes: Smoker; no alcohol Smoker; no alcohol Smoker; no alcohol Problems Problem Type SNOMED Code ICD Code Onset Dates Problem Status W/U Status Risk Notes Problem Colon cancer screening (Z12.11) Active confirmed Problem 229927774 Irritable bowel syndrome with diarrhea (K58.0) Active confirmed Problem 12356647 Internal hemorrhoid (K64.8) Active confirmed Vital Signs Temperature 98.9 degrees Fahrenheit 05/19/2025 Blood pressure diastolic 01 mm Hg 05/19/2025 Height 63 in 05/19/2025 Blood pressure systolic 001 mm Hg 05/19/2025 Weight 189.6 lbs 05/19/2025 BMI 33.58 kg/m2 05/19/2025 Encounters Encounter Location Date Provider Diagnosis [facility] [address] [place] [phone] 05/19/2025 Adam Medrano Irritable bowel syndrome with diarrhea K58.0 and Colon cancer screening Z12.11 Assessments Encounter Date Diagnosis (ICD Code) Assessment Notes Treatment Notes Treatment Clinical Notes Section Notes 05/19/2025 Colon cancer screening (ICD-10 - Z12.11) [...] keep you advised of her progress.. 05/19/2025 Irritable bowel syndrome with diarrhea (ICD-10 [...] 2 as her last exam was in 2016. Given the upcoming course of ECT as [...] advised of her progress.. Plan Of Treatment Next Appt Details Provider Name:Adam Medrano , 11/21/2025 09:50:00 AM, [address] [place] [address], [address], [place], [address], Insurance Providers Payer Name Payer Address Payer Phone Subscriber Number Group Number Insured Name Patient Relationship to Insured Coverage Start Date Coverage End Date MEDICARE OF [place] [address] [place] [id number] ANAY DUFF Self - patient is the insured 3 MEDICAID OF [facility] [address] [place] [address] [id number] ANAY DUFF Self - patient is the insured Medical (General) History Medical History History ICD Code Denies [place],DM,CVA,Lung disease,renal dise ase Bipolar depression-She sees Dr. Alvarez at [facility]. She reports that she will be starting a course of ECT in May 2025 Hypothyroidism Hyperlipidemia GERD-EGD in 09/2017- small h iatal hernia, no esophagitis, no Snyder's esophagus, and duodenal biopsies were normal and without any signs of celiac disease IBS- - duodenal biopsies wer e negative for celiac disease and colon biopsies were negative for microscopic colitis in 09/2017 Colonoscopy in 09/2017- smal l internal hemorrhoids and occasional diverticulosis- - otherwise normal exam- biopsies negative for microscopic colitis Surgical History Surgery Date(Month/Year) -2018-at [facility]- trache ostomy- in hospital for 1 month-She had a hip replacement at that time. Rhinoplasty-cosmetic
== END 2025-06-13 10:33 | disposition home or self-care (01) ==
LOC: HO.HWS 09:50
PROVIDERS: PCP Internal Medicine; Visit Provider Obstetrics & Gynecology
DX: N95.0 Postmenopausal bleeding (principal)
CPT/HCPCS: 99213

== ENCOUNTER → 2025-06-13 09:50 | Outpatient (BNVA) | payer MEDICARE, MEDICAID, SELFPAY | PROVIDERS: PCP Internal Medicine; Visit Provider Obstetrics & Gynecology | DX: N95.0 Postmenopausal bleeding (principal) | CPT/HCPCS: 99212 ==

== ENCOUNTER 2025-06-16 05:55 | Day surgery (SDC) | payer MEDICARE, MEDICAID, SELFPAY ==
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
--- OUTSIDE RECORDS SUMMARY | 2025-05-24 09:37 | XMS_ITS | Clinical Summary ---
Author Organization 175 [facility] Address [address] [place] [address] Phone Care Team Providers Care International Trade Specialist Name Role Phone Bashir Tadeo MD Primary Care Provider +1- [phone] Allergies Active Allergy Reactions Criticality Noted Date [...] laceration 10/04/2024 Schizoaffective disorder, bi polar type ([facility] V24, [facility] V28) 10/04/2024 Depression 10/04/2024 long-term current use of clozapine 10/04/2024 Hip fracture requiring opera tive repair ([facility] V24, [facility] V28) 10/04/2024 Encounters Date Type Department Care Team Description 03/08/2025 1:30 PM EDT Office Visit Orthopedic Surgery - [address] [id number] Brent Hazel, DPM Arthritis of foot, left (Primary Dx); 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, initial encounter ([facility] V24); Neuritis from Last 3 Months Immunizations [...] 03/08/2025 1:21 PM EDT Plan of Treatment Health Maintenance Due Date [...] 10/26/2022 COVID-19 Vaccine (7 - Moderna risk season) 2025 07/19/2024, 08/30/2023, 09/15/2022, Additional history [...] Documents on File Type Date Recorded Patient Talent Acquisition Assistant Expl anation Health Care Decision (hx) 01/16/2015 AD MONGE DIRECTIVE Health Care Decision (hx) 01/16/2015 AD MONGE DIRECTIVE Health Care Decision (hx) 01/16/2015 AD MONGE DIRECTIVE Care Teams International Trade Specialist Relationship Specialty Start Date End Date Bashir Tadeo MD [facility] [address] [place] [address] [address] [place] [address] PCP - General Internal Medicine 08/30/24
[2025-06-16 06:13] VITALS: BMI 34.7
[2025-06-16 06:24] VITALS: BP 145/62; PULSE 66; RESP 16; TEMP 36.3; O2SAT 98
--- NOTE | 2025-06-16 07:02 | P.CONAN_ITS ---
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 (Acute) Tinea pedis (Acute) Left foot pain (Acute) Shortness of breath (Acute) Hyperkalemia (Acute) Diarrhea (Acute) Palpitation (Acute) Eczema (Acute) Postmenopausal bleeding (Acute) Amenorrhea (Acute) Menopause (Acute) Complex ovarian cyst (Acute) Elevated blood pressure reading without diagnosis of hypertension (Acute) Hypercholesterolemia (Acute) Hypothyroid (Acute) Schizoaffective disorder, bipolar type (Chronic) Past Medical History Medical History Well woman exam Pre-op examination Left foot pain Preoperative clearance 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 Father No problems noted. Family history of problems with anesthesia: No Surgical History Surgical History S/P foot surgery, left History of surgery on lower extremity History of hip replacement History of tracheostomy History of hip surgery Status post aortic coarctation stent placement H/O rhinoplasty History of Problems with Anesthesia: No Social History Social History Housing: House Are you a primary adult care provider to a significant other at home: No Do you presently have visiting nurse or other home services: No Alcohol intake: never Patient Tobacco Use Status: Former Tobacco user Tobacco use type: Cigarette e-Cigarette/Vaping Use: Never Used Second Hand Smoke Exposure: No Use of substances other than those prescribed or required for medical reasons: No Have you been hit, kicked, punched, or otherwise hurt by someone within the past year? If so, by whom?: No Are you DNR?: No Advance Directives: No Advance Directives Information Provided: Yes Advance Directives on File: No Patient : No : No Poor oral hygiene: No service: No Current occupational status: disabled Cognitive needs: No Hearing needs: No Vision needs: Yes (Glasses) Meds Allergies Allergy/AdvReac Type Severity Reaction Status Date / Time Sulfa (Sulfonamide Allergy Mild UNKNOWN Verified 06/13/25 10:21 Antibiotics) Active Medications: Current Medications Lactated Ringer's (Lr) 1,000 mls @ 80 mls/hr IVCONT .[id number] KEHINDE Home Medications ?Medication ?Instructions ?Recorded ?Confirmed ?Last Taken ?Type cholecalciferol (vitamin D3) 25 25 mcg PO DAILY 04/04/25 Unknown History mcg (1,000 unit) capsule Exam Height,Weight and Vital Signs: Height 5 ft 3 in Weight 88.904 kg Last Vital Signs Temp 97.4 F 06/16/25 06:24 Pulse 66 06/16/25 06:24 Resp 16 06/16/25 06:24 BP 145/62 H 06/16/25 06:24 Pulse Ox 98 06/16/25 06:24 O2 Del Method Room Air 06/16/25 06:24 Airway Mallampati Class: II TM Dist: <=3cm Neck ROM: Full Loose/Missing/Broken Teeth: No Heart: ok Lungs: ok Assessment and Plan Assessment Anesthesia Assessment: Anesthesia Plan Discussed and Chart Reviewed Final Anesthetic Review Family History of Problems with Anesthesia: No History of Problems with Anesthesia: No NPO: Yes ASA Class: III Final Preanesthetic Review: No Changes in Pt Med Stat, Meds/Allgs Chart Reviewed, Consent Obtained/Reviewed and Anes Risks/Benef Reviewed Patient Risk: Intermediate Procedure Risk: Intermediate Anesthetic Plan Anesthetic Plan: GA and Agree w/ Assess. and Plan Disposition: Standard PACU
[2025-06-16] MEDS: Lactated Ringers 1,000 ML 80 ML IVCONT (07:04)
--- NOTE | 2025-06-16 07:09 | MHC.SHP ---
Pre-Procedural Eval Section A - 24 Hr Update-Section A only Date of Service: 06/16/25 The patient is an INPATIENT: No Changes since office visit: Yes Changes in Medication and Yes Patient answered all questions; No Cold of Flu in the past 2 weeks and No New Medical Problems The patient has been examined within 24 hours of the surgical procedure. The History & Physical has been completed within 30 days and I have reviewed it.: Yes Section B - Complete if H&P > 30 days Chief Complaint: depression Details of Present Illness: recurrent dep PI generally better Relevant Family History (Specify if Yes): No Relevant Social History: None Present Medications: see Short Stay Collaborative assessment Medical History: No relevant PMH History of Previous Operations: No relevant previous surgery Allergies: Allergies Allergy/AdvReac Type Severity Reaction Status Date / Time Sulfa (Sulfonamide Allergy Mild UNKNOWN Verified 06/13/25 10:21 Antibiotics) Review of Systems Sugical H&P ROS: Negative: Cardiovascular, Respiratory, Genitourinary, Musculoskeletal and Eyes/Ears/Nose/Throat and Yes, Specify: Neurological (some st memory dysfx mild muscle occ invol twitch improved ) and Psychiatric (some pi and depression) Exam Surgical H&P Exam: Normal: HEENT, Normal: Heart, Normal: Lungs and Normal: Neurological Exam Comment: 140/67 p 78 alert oriented not confused Plan Diagnosis/Plan: Unchanged I have reviewed the history and physical and performed a pertinent physical examination on my patient. No changes have occurred unless specified. Time Spent With Patient Time: Total time managing care of this patient today ____ minutes.
--- NOTE | 2025-06-16 07:11 | HO.ECTPROC ---
ECT Procedure Note Diagnosis/Treatment Date of Service: 06/16/25 Diagnosis: Bipolar disorder Previous ECT Date: 05/24/25 Treatment: Maintenance Interval Clinical Notes: Pt with some periods of feeling vacant for seconds ongoing no denies feeling overly depressed some pi the ect she continues to find quite helpful every 2 wks seems most helpful Time: Total time managing care of this patient today ____ minutes. ECT Settings Device: THYMATRON DGx Electrode Placement: Bifrontal Program/Pulse Width: 0.25 Energy Percent: 65 Seizure Duration By EEG (in seconds): 61 Medications Administration General Anesthetic: Etomidate Muscle Relaxant: Succinylcholine Ancillary Medications Analgesics: Torodol - Pre ECT Anti-emetics: Zofran - Pre ECT Airway Management Airway Management: Bag Mask Ventilation Treatment Recommendations Energy Percent: 60 Pt Tolerated Procedure w/o Issue: Yes
[2025-06-16 07:37] VITALS: BP 110/58; PULSE 63; RESP 10; TEMP 36.7; O2SAT 97
[2025-06-16 07:42] VITALS: BP 110/58; PULSE 65; RESP 13; O2SAT 99
[2025-06-16 07:47] VITALS: BP 117/61; PULSE 65; RESP 17; O2SAT 99
[2025-06-16 07:52] VITALS: BP 114/58; PULSE 64; RESP 17; O2SAT 93
[2025-06-16 08:16] VITALS: BP 101/58; PULSE 62; RESP 18; TEMP 36.4; O2SAT 95
== END 2025-06-16 08:36 | disposition home or self-care (01) ==
PROVIDERS: PCP Internal Medicine; Visit Provider Psychiatry & Neurology Psychiatry
PROC: (CPT 90870; principal; 2025-06-16 07:30)
DX: F31.9 Bipolar disorder, unspecified (principal); E78.00 Pure hypercholesterolemia, unspecified; R03.0 Elevated blood-pressure reading, without diagnosis of hypertension; E03.9 Hypothyroidism, unspecified; M79.672 Pain in left foot; Z79.899 Other long term (current) drug therapy; Z88.2 Allergy status to sulfonamides; Z87.891 Personal history of nicotine dependence; Z98.890 Other specified postprocedural states
CPT/HCPCS: 90870; J0330; J1885; J2405; J2704

== ENCOUNTER → 2025-06-16 05:55 | Outpatient (BNV) | payer MEDICARE, MEDICAID, SELFPAY | PROVIDERS: PCP Internal Medicine; Visit Provider Psychiatry & Neurology Psychiatry | DX: F33.2 Major depressive disorder, recurrent severe without psychotic features (principal) | CPT/HCPCS: 90870 ==

== ENCOUNTER 2025-06-23 11:23 | Outpatient (REF) | payer MEDICARE, MEDICAID, SELFPAY ==
[2025-06-23 12:32] LABS: MANUAL DIFF FLAG NO
[2025-06-23 12:45] LABS: Hematocrit 39.4 % (37.0-47.0); Hemoglobin 13.0 g/dl (12.0-16.0); Imm Gran Abs Auto 0.02 X10*3/uL (0.00-0.03); Imm Gran Pct Auto 0.3 % (0.0-0.4); Lymphocytes Absolute Auto 1.2 X10*3/uL (1.2-4.9); Mean Corpuscular HGB Conc 33.0 g/dl (31.0-35.0); Mean Corpuscular Hemoglobin 30.7 pg (27.0-33.0); Mean Corpuscular Volume 92.9 fL (80.0-98.0); NRBC Abs Auto 0.000 X10*3/uL (0.0-0.012); NRBC Pct Auto 0.0 /100WBC (0.0-0.2); Platelet Count 215 X10*3/uL (160-400); Red Blood Count 4.24 X10*6/uL (4.20-5.50); White Blood Count 6.8 X10*3/uL (4.8-10.8)
[2025-06-23 13:30] LABS: Lithium 0.73 mmol/L (0.60-1.20)
[2025-06-23 13:43] LABS: Alanine Aminotransferase 23 U/L (0-31); Albumin Level 5.0 g/dL (3.5-5.0); Alkaline Phosphatase 83 U/L (39-117); Anion Gap 13 (12-20); Aspartate Amino Transferase 20 U/L (5-31); Blood Urea Nitrogen 16 mg/dL (9-16); Calcium 9.5 mg/dL (8.4-10.2); Carbon Dioxide 29 mmol/L (22-29); Chloride 105 mmol/L (96-108); Estimated Glomerular Filt Rate > 60; Potassium 4.5 mmol/L (3.3-5.1); Sodium 142 mmol/L (135-145); Total Protein 7.7 g/dL (6.5-8.0)
== END 2025-06-23 11:24 | disposition home or self-care (01) ==
LOC: HO.LAB 11:23
PROVIDERS: PCP Internal Medicine; Visit Provider Psychiatry & Neurology Psychiatry
DX: F25.0 Schizoaffective disorder, bipolar type (principal); R73.9 Hyperglycemia, unspecified; E03.9 Hypothyroidism, unspecified; Z79.899 Other long term (current) drug therapy
CPT/HCPCS: 36415; 80053; 80178; 84443; 84481; 85025; 99212

== ENCOUNTER 2025-06-23 11:23 | Outpatient (AMB) | payer MEDICARE, MEDICAID, SELFPAY ==
--- OUTSIDE RECORDS SUMMARY | 2025-06-23 11:26 | XMS_ITS | Clinical Summary ---
Author Organization 175 [facility] Address [address] [place] [address] Phone Care Team Providers Care Accelerator Technician Name Role Phone Bashir Tadeo MD Primary Care Provider +1- [phone] Allergies Active Allergy Reactions Criticality Noted Date [...] laceration 10/04/2024 Schizoaffective disorder, bi polar type ([facility] V24, [facility] V28) 10/04/2024 Depression 10/04/2024 retirement current use of clozapine 10/04/2024 Hip fracture requiring opera tive repair ([facility] V24, [facility] V28) 10/04/2024 Immunizations Name Administration Dates Next [...] Documents on File Type Date Recorded 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
--- OUTSIDE RECORDS SUMMARY | 2025-06-23 11:26 | XMS_ITS | Patient Health Record ---
Author Organization [facility] Address [address] [place] [address] Care Team Providers Care Underwriting Internship Name Role Phone RAMIREZ, KARTIK Primary Care Provider Adam Craig Unavailable [phone] Kim GAN, Jose Carlos Unavailable Unavailable Allergies [...] 112 MCG Oral for 30 Days Active [place] Carbonate 300 MG Oral for 90 Days [...] Colon cancer screening (Z12.11) Active confirmed Problem [id number] Irritable bowel syndrome with diarrhea (K58.0) Active confirmed Problem 19089823 Internal hemorrhoid (K64.8) Active confirmed Vital Signs Temperature 98.9 degrees Fahrenheit 05/19/2025 Blood pressure diastolic 01 mm Hg 05/19/2025 Height 63 in 05/19/2025 Blood pressure systolic 001 mm Hg 05/19/2025 Weight 189.6 lbs 05/19/2025 BMI 33.58 kg/m2 05/19/2025 Encounters Encounter Location Date Provider Diagnosis [facility] [address] [place] [address] 05/19/2025 Adam Medrano Irritable bowel syndrome with [...] Provider Name:Adam Medrano , 11/21/2025 09:50:00 AM, [address] [place] [address], [address], [place], [address], Insurance Providers Payer Name Payer Address Payer Phone Subscriber Number Group Number Insured Name Patient Relationship to Insured Coverage Start Date Coverage End Date MEDICARE OF [place] [address] [place] [id number] ANAY DUFF Self - patient is the insured 3 MEDICAID OF [facility] [address] [place] [address] [id number] ANAY DUFF Self - patient is the insured Medical (General) History Medical History History ICD Code Denies [place],DM,CVA,Lung disease,renal dise ase Bipolar depression-She sees Dr. Alvarez at [facility]. She reports that she will be starting [...] microscopic colitis Surgical History Surgery Date(Month/Year) -2018-at [facility]- trache ostomy- in hospital for 1 month-She had a hip replacement at that time. Rhinoplasty-cosmetic
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
== END 2025-06-23 12:29 | disposition home or self-care (01) ==
LOC: HO.HOP 11:23
PROVIDERS: PCP Internal Medicine; Visit Provider Psychiatry & Neurology Psychiatry
DX: F25.0 Schizoaffective disorder, bipolar type (principal); R73.9 Hyperglycemia, unspecified
CPT/HCPCS: 90833; 99213

== ENCOUNTER 2025-07-03 06:02 | Day surgery (SDC) | payer MEDICARE, MEDICAID, SELFPAY ==
--- OUTSIDE RECORDS SUMMARY | 2025-06-16 08:19 | XMS_ITS | Clinical Summary ---
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 10/04/2024 Hip fracture requiring opera tive repair ([facility] V24, [facility] V28) 10/04/2024 Immunizations Name Administration Dates Next [...] Documents on File Type Date Recorded Patient Business Intelligence Director Expl anation Health Care Decision (hx) 01/16/2015 AD MONGE DIRECTIVE Health Care Decision (hx) 01/16/2015 AD MONGE DIRECTIVE Health Care Decision (hx) 01/16/2015 AD MONGE DIRECTIVE Care Teams Textile Chemist Relationship Specialty Start Date End Date Bashir Tadeo MD [facility] [address] [place] [address] [address] [facility] [address] PCP - General Internal Medicine 08/30/24
--- OUTSIDE RECORDS SUMMARY | 2025-06-16 08:20 | XMS_ITS | Patient Health Record ---
Author Organization [facility] Address [address] [place] [address] Care Team Providers Care Healthcare Economics Manager Name Role Phone RAMIREZ, KARTIK Primary Care Provider Adam Craig Unavailable [phone] Kim GAN, Jose Carlos Unavailable Unavailable Allergies [...] 112 MCG Oral for 30 Days Active [employer] Carbonate 300 MG Oral for 90 Days [...] Colon cancer screening (Z12.11) Active confirmed Problem [id number] Irritable bowel syndrome with diarrhea (K58.0) Active confirmed Problem 40251615 Internal hemorrhoid (K64.8) Active confirmed Vital Signs Temperature 98.9 degrees Fahrenheit 05/19/2025 Blood pressure diastolic 01 mm Hg 05/19/2025 Height 63 in 05/19/2025 Blood pressure systolic 001 mm Hg 05/19/2025 Weight 189.6 lbs 05/19/2025 BMI 33.58 kg/m2 05/19/2025 Encounters Encounter Location Date Provider Diagnosis [facility] [address] [place] [address] 05/19/2025 Adam Medrano Irritable bowel syndrome with [...] Provider Name:Adam Medrano , 11/21/2025 09:50:00 AM, [address] [place] [address], [address], [place], [address], Insurance Providers Payer Name Payer Address Payer Phone Subscriber Number Group Number Insured Name Patient Relationship to Insured Coverage Start Date Coverage End Date MEDICARE OF [place] [address] [place] [id number] ANAY DUFF Self - patient is the insured 3 MEDICAID OF [facility] [address] [place] [address] [id number] ANAY DUFF Self - patient is the insured Medical (General) History Medical History History ICD Code Denies [place],DM,CVA,Lung disease,renal dise ase Bipolar depression-She sees Dr. Alvarez at [facility]. She reports that she will be starting [...] microscopic colitis Surgical History Surgery Date(Month/Year) -2018-at [facility]- trache ostomy- in hospital for 1 month-She had a hip replacement at that time. Rhinoplasty-cosmetic
[2025-07-03 06:49] VITALS: BP 130/61; PULSE 67; RESP 15; TEMP 36.5; O2SAT 98; BMI 32.4
--- NOTE | 2025-07-03 07:06 | MHC.SHP ---
Pre-Procedural Eval Section A - 24 Hr Update-Section A only Date of Service: 07/03/25 The patient is an INPATIENT: No Changes since office visit: No Cold of Flu in the past 2 weeks The patient has been examined within 24 hours of the surgical procedure. The History & Physical has been completed within 30 days and I have reviewed it.: Yes Section B - Complete if H&P > 30 days Chief Complaint: depression Details of Present Illness: bipolar dep with pi no active si Relevant Family History (Specify if Yes): No Relevant Social History: None Present Medications: see Short Stay Collaborative assessment Medical History: No relevant PMH History of Previous Operations: No relevant previous surgery Allergies: Allergies Allergy/AdvReac Type Severity Reaction Status Date / Time Sulfa (Sulfonamide Allergy Mild UNKNOWN Verified 06/13/25 10:21 Antibiotics) Review of Systems Sugical H&P ROS: Negative: Cardiovascular, Respiratory, Genitourinary, Musculoskeletal and Eyes/Ears/Nose/Throat and Yes, Specify: Neurological (some st memory dysfx mild muscle occ invol twitch improved ) and Psychiatric (some pi and depression) Exam Surgical H&P Exam: Normal: HEENT, Normal: Heart, Normal: Lungs and Normal: Neurological Exam Comment: 140/67 p 78 alert oriented not confused Plan Diagnosis/Plan: Unchanged I have reviewed the history and physical and performed a pertinent physical examination on my patient. No changes have occurred unless specified. Time Spent With Patient Time: Total time managing care of this patient today ____ minutes.
--- NOTE | 2025-07-03 07:09 | HO.ANESPROP2 ---
[facility] Active Problems Active Problems: All Active Problems (Updated 04/19/25 @ 11:30 by Liam Valentine MD) Well woman exam (Acute) Galactorrhea (Acute) Annual wellness visit (Acute) Annual physical exam (Acute) Irritable bowel syndrome with diarrhea (Acute) Incomplete bladder emptying (Acute) Hyperglycemia (Acute) Allergic rhinitis (Acute) halfway current use of clozapine (Acute) Tinea pedis (Acute) Left foot pain (Acute) Shortness of breath (Acute) Hyperkalemia (Acute) Diarrhea (Acute) Palpitation (Acute) Eczema (Acute) Postmenopausal bleeding (Acute) Amenorrhea (Acute) Menopause (Acute) Complex ovarian cyst (Acute) Elevated blood pressure reading without diagnosis of hypertension (Acute) Hypercholesterolemia (Acute) Hypothyroid (Acute) Schizoaffective disorder, bipolar type (Chronic) Past Medical History Medical History Well woman exam Pre-op examination Left foot pain Preoperative clearance 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 Father No problems noted. Family history of problems with anesthesia: No Surgical History Surgical History S/P foot surgery, left History of surgery on lower extremity History of hip replacement History of tracheostomy History of hip surgery Status post aortic coarctation stent placement H/O rhinoplasty History of Problems with Anesthesia: No Social History Social History Housing: House Are you a primary behavioral health care coordinator to a significant other at home: No Do you presently have visiting nurse or other home services: No Alcohol intake: never Patient Tobacco Use Status: Former Tobacco user Tobacco use type: Cigarette e-Cigarette/Vaping Use: Never Used Second Hand Smoke Exposure: No Advance Directives: No Advance Directives Information Provided: Yes service: No Current occupational status: disabled Cognitive needs: No Hearing needs: No Vision needs: Yes (Glasses) Meds Allergies Allergy/AdvReac Type Severity Reaction Status Date / Time Sulfa (Sulfonamide Allergy Mild UNKNOWN Verified 06/13/25 10:21 Antibiotics) Home Medications ?Medication ?Instructions ?Recorded ?Confirmed ?Last Taken ?Type cholecalciferol (vitamin D3) 25 25 mcg PO DAILY 06/23/23 04/04/25 Unknown History mcg (1,000 unit) capsule Exam Height,Weight and Vital Signs: Height 5 ft 3 in Weight 83.007 kg Last Vital Signs Temp 97.7 F 07/03/25 06:49 Pulse 67 07/03/25 06:49 Resp 15 07/03/25 06:49 BP 130/61 07/03/25 06:49 Pulse Ox 98 07/03/25 06:49 O2 Del Method Room Air 07/03/25 06:49 Airway Mallampati Class: II TM Dist: >3cm Neck ROM: Full Assessment and Plan Assessment Anesthesia Assessment: Anesthesia Plan Discussed and Chart Reviewed Final Anesthetic Review Family History of Problems with Anesthesia: No History of Problems with Anesthesia: No NPO: Yes ASA Class: III Final Preanesthetic Review: No Changes in Pt Med Stat, Meds/Allgs Chart Reviewed, Consent Obtained/Reviewed and Anes Risks/Benef Reviewed Patient Risk: Intermediate Procedure Risk: Intermediate Anesthetic Plan Anesthetic Plan: GA Disposition: Standard PACU
--- NOTE | 2025-07-03 07:12 | HO.ECTPROC ---
ECT Procedure Note Diagnosis/Treatment Date of Service: 07/03/25 Diagnosis: Bipolar disorder Previous ECT Date: 06/16/25 Treatment: Maintenance Interval Clinical Notes: Pt feeling better now on l methyl folate 15 mg seems brighter no new medical concerns alert cooperative Time: Total time managing care of this patient today ____ minutes. ECT Settings Device: THYMATRON DGx Electrode Placement: Bifrontal Program/Pulse Width: 0.25 Energy Percent: 65 Seizure Duration By EEG (in seconds): 51 Medications Administration General Anesthetic: Etomidate (18) Muscle Relaxant: Succinylcholine (100) Ancillary Medications Analgesics: Torodol - Pre ECT Anti-emetics: Zofran - Pre ECT Miscillaneous Medications: Dexmedetomidine Airway Management Airway Management: Bag Mask Ventilation Treatment Recommendations No Changes Recommended: No change Energy Percent: 65 Notes: f/u 3 weeks Pt Tolerated Procedure w/o Issue: Yes
[2025-07-03 07:32] VITALS: BP 159/67; PULSE 76; RESP 14; TEMP 37; O2SAT 99
[2025-07-03 07:37] VITALS: BP 123/52; PULSE 67; RESP 14; O2SAT 100
[2025-07-03 07:42] VITALS: BP 121/64; PULSE 60; RESP 14; O2SAT 100
[2025-07-03 07:47] VITALS: BP 116/61; PULSE 67; RESP 14; O2SAT 100
[2025-07-03 08:02] VITALS: BP 115/53; PULSE 61; RESP 14; TEMP 37; O2SAT 97
== END 2025-07-03 08:28 | disposition home or self-care (01) ==
PROVIDERS: PCP Internal Medicine; Visit Provider Psychiatry & Neurology Psychiatry
PROC: (CPT 90870; principal; 2025-07-03 07:30)
DX: F31.9 Bipolar disorder, unspecified (principal); E78.00 Pure hypercholesterolemia, unspecified; E03.9 Hypothyroidism, unspecified; Z79.899 Other long term (current) drug therapy; Z88.2 Allergy status to sulfonamides; Z87.891 Personal history of nicotine dependence; Z98.890 Other specified postprocedural states
CPT/HCPCS: 90870; J0330; J1885; J2405

== ENCOUNTER → 2025-07-03 06:02 | Outpatient (BNV) | payer MEDICARE, MEDICAID, SELFPAY | PROVIDERS: PCP Internal Medicine; Visit Provider Psychiatry & Neurology Psychiatry | DX: F33.2 Major depressive disorder, recurrent severe without psychotic features (principal) | CPT/HCPCS: 90870 ==

== ENCOUNTER 2025-07-19 11:47 | Outpatient (AMB) | payer MEDICARE, MEDICAID, SELFPAY ==
--- NOTE | 2025-07-19 11:54 | A.OFFPC_ITS ---
Vital Signs 07/19/25 11:59 Height 5 ft 3 in Weight 190 lb 4 oz BMI 33.7 BP 122/72 Blood Pressure Location Lt brachial Position Sitting Pulse 56 Pulse Source Pulse Oximeter Temp 97.1 F Temp Source Temporal Artery Scan Pulse Oximetry (%) 98 Oxygen Delivery Method Room Air Intake Visit Reasons: FOLLOW UP Intake Note: Patient is here to follow up on IBS, Hypercholesterolemia, Hypothroid. Proofer Prepress Required: No Dental Practitioner: Not Required per policy Accompanied by: Self / Same As Patient Allergies Sulfa (Sulfonamide Antibiotics) Allergy (Mild, Verified 07/19/25 11:58) UNKNOWN Tobacco use date assessed: 07/19/25 Dental Screening Dental Screen Date: 07/19/25 Did you have a dental visit in the last 12 months?: Yes Did you have a dental problem in the last 6 months where you did not have access to dental care?: No Was dental information given to patient?: Patient has dentist [facility] Medical History Well woman exam Pre-op examination Left foot pain Preoperative clearance 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 Father No problems noted. Social History Housing: House Are you a primary wound care rn to a significant other at home: No Do you presently have visiting nurse or other home services: No Alcohol intake: never Patient Tobacco Use Status: Former Tobacco user Tobacco use type: Cigarette e-Cigarette/Vaping Use: Never Used Second Hand Smoke Exposure: Yes service: No Current occupational status: disabled Cognitive needs: No Hearing needs: No Vision needs: Yes (Glasses) Female Reproductive History Menstrual Age of Menarche: 10 Questionnaire PHQ-9 Over the last 2 weeks, how often have you been bothered by any of the following problems? 1. Little interest or pleasure in doing things: not at all 2. Feeling down, depressed, or hopeless: not at all 3. Trouble falling or staying asleep, or sleeping too much: not at all 4. Feeling tired or having little energy: not at all 5. Poor appetite or overeating: several days 6. Feeling bad about yourself - or that you are a failure or have let yourself or your family down: not at all 7. Trouble concentrating on things, such as reading the newspaper or watching television: several days 8. Moving or speaking so slowly that other people could have noticed. Or the opposite - being so fidgety or restless that you have been moving around a lot more than usual: not at all 9. Thoughts that you would be better off or of hurting yourself in some way: not at all Total score: 2 Depression Screening Interpretation: Positive Depression Screening Done: Yes Source: Developed by Drs. Adam Donohue, Gracie Toure, Rishi Abdi and colleagues, with an educational pranay from [employer]. Thrive Questionnaire Date Thrive assessed: 01/20/25 I am a: Patient What is your living situation today?: I have a steady place to live Within the past 12 months, did the food you bought not last and you didn't have the money to get more?: Never true Within the past 12 months, did you worry whether your food would run out before you got money to buy more?: Never true Do you have trouble paying for medicines?: No Do you have trouble getting transportation to medical appointments?: No Do you have trouble paying your heating and electricity bill?: No Do you have trouble taking care of your child, family member or friend?: No Do you have trouble with day-to-day activities such as bathing, preparing meals, shopping, managing finances, etc.?: No Are you currently unemployed and looking for a job?: No Are you interested in more education?: No Please select the resources that you would like help with: None Currently or been in a relationship where the following occur: No concerns reported THRIVE Score: 0 AUDIT C Alcohol Use Questionnaire (AUDIT-C) 1. How often do you have a drink containing alcohol?: Never Total Score: 0 JYOTSNA-7 AMB Questionnaire JYOTSNA-7 Date JYOTSNA - 7 assessed: 07/19/25 Feeling nervous, anxious, or on edge: 0 = Not at all Not being able to stop or control worryin = Not at all Worrying too much about different things: 1 = Several days Trouble relaxin = Several days Being so restless that it is hard to sit still: 0 = Not at all Becoming easily annoyed or irritable: 1 = Several days Feeling afraid as if something awful might happen: 0 = Not at all Total JYOTSNA-7 score (0-4 normal; 5-9 mild; 10-14 moderate; 15-21 severe): 3 Source: Developed by Drs. Adam Donohue, Gracie Toure, Rishi Abdi and colleagues, with an educational pranay from [employer]. Physical exam (Primary Care) Vital Signs: Last Vital Signs Temp 97.1 F 07/19/25 11:59 Pulse 56 07/19/25 11:59 BP 122/72 07/19/25 11:59 Pulse Ox 98 07/19/25 11:59 Oxygen Delivery Method Room Air 07/19/25 11:59 BMI result Body Mass Index 33.7 Tobacco/Smoking Status: Tobacco use Status Tobacco use date assessed 07/19/25 07/19/25 12:05 Patient Tobacco Use Status Former Tobacco user 07/19/25 11:56 Tobacco use type Cigarette 07/19/25 11:56 e-Cigarette/Vaping Use Never Used 07/19/25 11:56 PHQ-9: PHQ-9 Score PHQ-9: Total score 2 07/19/25 11:56 Depression Screening Interpretation: Positive Thrive Assessment: Date of Thrive Assessment Date Thrive assessed 01/20/25 07/19/25 11:56 Currently or been in a relationship where the following occur: No concerns reported Coding Level of Care Code Est Pt Level 3 (05040) Complex EM visit Add On G2211 Diagnoses Schizoaffective disorder, bipolar type F25.0 Assessment & Plan Assessment & Plan (1) Schizoaffective disorder, bipolar type: Comment: bipolar Code(s): F25.0 - Schizoaffective disorder, bipolar type Category: Medical Plan History of Present Illness - The patient is a 50-year-old female presenting for a wellness visit. - She reports adherence to her medication regimen and has completed her mammogram screening. - The patient has been smoke-free for 7 years. Social History - Family status: Lives with her mother. - Substance use: Smoke-free for 7 years. Review of Systems - Cardiovascular: Denies chest pain. Physical Exam General: Cooperative and healthy appearing Nutritional Appearance: Well nourished Orientation/consciousness: Patient oriented x3 Limitations: No limitations Head: Normal to inspection General: Appearance normal, both eyes and all related structures Neck: Normal visual inspection Chest: Normal palpation of entire chest wall Respiratory: Normal respiratory effort Neurology: Patient oriented x3 Results Plan Condition is stable. Continue current medications. Discussion Notes Patient Instructions - Schedule fasting blood work for tomorrow.
[2025-07-19 11:59] VITALS: BP 122/72; PULSE 56; TEMP 36.2; O2SAT 98; BMI 33.7
--- OUTSIDE RECORDS SUMMARY | 2025-07-19 12:40 | XMS_ITS | Clinical Summary ---
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 10/04/2024 Hip fracture requiring opera tive repair ([facility] V24, [facility] V28) 10/04/2024 Immunizations Name Administration Dates Next [...] Documents on File Type Date Recorded Patient Corporate Development Manager Expl anation Health Care Decision (hx) 01/16/2015 AD MONGE DIRECTIVE Health Care Decision (hx) 01/16/2015 AD MONGE DIRECTIVE Health Care Decision (hx) 01/16/2015 AD MONGE DIRECTIVE Care Teams Medical Record Coder Relationship Specialty Start Date End Date Bashir Tadeo MD [facility] [place] [address] [place] [address] [address] [facility] [id number] PCP - General Internal Medicine 08/30/24
--- OUTSIDE RECORDS SUMMARY | 2025-07-19 12:40 | XMS_ITS | Patient Health Record ---
Author Organization [facility] Address [address] [place] [address] Care Team Providers Care Assistant Boiler Operator Name Role Phone RAMIREZ, KARTIK Primary Care Provider Adam Craig Unavailable [phone] Kim GAN, Jose Carlos Unavailable Unavailable Allergies [...] 112 MCG Oral for 30 Days Active [place] Carbonate 300 MG Oral for 90 Days [...] Colon cancer screening (Z12.11) Active confirmed Problem [id number] Irritable bowel syndrome with diarrhea (K58.0) Active confirmed Problem 58018729 Internal hemorrhoid (K64.8) Active confirmed Vital Signs Temperature 98.9 degrees Fahrenheit 05/19/2025 Blood pressure diastolic 01 mm Hg 05/19/2025 Height 63 in 05/19/2025 Blood pressure systolic 001 mm Hg 05/19/2025 Weight 189.6 lbs 05/19/2025 BMI 33.58 kg/m2 05/19/2025 Encounters Encounter Location Date Provider Diagnosis [facility] [address] [place] [phone] 05/19/2025 Adam Medrano Irritable bowel syndrome with [...] Of Treatment Next Appt Details Provider Name:Adam Medraon , 11/21/2025 09:50:00 AM, [address] [place] [address], [address], [place], [address], Insurance Providers Payer Name Payer Address Payer Phone Subscriber Number Group Number Insured Name Patient Relationship to Insured Coverage Start Date Coverage End Date MEDICARE OF [place] [address] [place] [id number] ANAY DUFF Self - patient is the insured 3 MEDICAID OF [facility] [address] [place] [address] [id number] ANAY DUFF Self - patient is the insured Medical (General) History Medical History History ICD Code Denies [place],DM,CVA,Lung disease,renal dise ase Bipolar depression-She sees Dr. Alvarez at [facility]. She reports that she will be starting [...] microscopic colitis Surgical History Surgery Date(Month/Year) -2018-at [facility]- trache ostomy- in hospital for 1 month-She had a hip replacement at that time. Rhinoplasty-cosmetic
== END 2025-07-19 12:11 | disposition home or self-care (01) ==
LOC: HO.HMCH 11:48
PROVIDERS: PCP Internal Medicine; Visit Provider Internal Medicine
DX: F25.0 Schizoaffective disorder, bipolar type (principal)

== ENCOUNTER → 2025-07-19 11:47 | Outpatient (BNVA) | payer MEDICARE, MEDICAID, SELFPAY | PROVIDERS: PCP Internal Medicine; Visit Provider Internal Medicine | DX: F25.0 Schizoaffective disorder, bipolar type (principal) | CPT/HCPCS: 99212 ==

== ENCOUNTER 2025-07-21 09:35 | Outpatient (REF) | payer MEDICARE, MEDICAID, SELFPAY ==
[2025-07-21 10:22] LABS: MANUAL DIFF FLAG NO
--- OUTSIDE RECORDS SUMMARY | 2025-07-21 10:24 | XMS_ITS | Clinical Summary ---
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 10/04/2024 Hip fracture requiring opera tive repair ([facility] V24, [facility] V28) 10/04/2024 Immunizations Name Administration Dates [...] Documents on File Type Date Recorded Patient Transport Corps Officer Expl anation Health Care Decision (hx) 01/16/2015 AD MONGE DIRECTIVE Health Care Decision (hx) 01/16/2015 AD MONGE DIRECTIVE Health Care Decision (hx) 01/16/2015 AD MONGE DIRECTIVE Care Teams Ventilation Worker Relationship Specialty Start Date End Date Bashir Tadeo MD [facility] [place] [address] [place] [address] [address] [facility] [id number] PCP - General Internal Medicine 08/30/24
--- OUTSIDE RECORDS SUMMARY | 2025-07-21 10:24 | XMS_ITS | Patient Health Record ---
Author Organization [facility] Address [address] [place] [address] Care Team Providers Care Glass Silverer Name Role Phone RAMIREZ, KARTIK Primary Care Provider Adam Craig Unavailable [phone] Kim GAN, Jose Carlos Unavailable Unavailable Allergies [...] 112 MCG Oral for 30 Days Active [place] Carbonate 300 MG Oral for 90 Days [...] Colon cancer screening (Z12.11) Active confirmed Problem [id number] Irritable bowel syndrome with diarrhea (K58.0) Active confirmed Problem 27809344 Internal hemorrhoid (K64.8) Active confirmed Vital Signs Temperature 98.9 degrees Fahrenheit 05/19/2025 Blood pressure diastolic 01 mm Hg 05/19/2025 Height 63 in 05/19/2025 Blood pressure systolic 001 mm Hg 05/19/2025 Weight 189.6 lbs 05/19/2025 BMI 33.58 kg/m2 05/19/2025 Encounters Encounter Location Date Provider Diagnosis [facility] [address] [place] [phone] 05/19/2025 Adam Medrano Irritable bowel syndrome with [...] Provider Name:Adam Medrano , 11/21/2025 09:50:00 AM, [address] [place] [address], [address], [place], [address], Insurance Providers Payer Name Payer Address Payer Phone Subscriber Number Group Number Insured Name Patient Relationship to Insured Coverage Start Date Coverage End Date MEDICARE OF [place] [address] [place] [id number] ANAY DUFF Self - patient is the insured 3 MEDICAID OF [facility] [address] [place] [address] [id number] ANAY DUFF Self - patient is the insured Medical (General) History Medical History History ICD Code Denies [place],DM,CVA,Lung disease,renal dise ase Bipolar depression-She sees Dr. Alvarez at [facility]. She reports that [...] microscopic colitis Surgical History Surgery Date(Month/Year) -2018-at [facility]- trache ostomy- in hospital for 1 month-She had a hip replacement at that time. Rhinoplasty-cosmetic
[2025-07-21 10:39] LABS: Hematocrit 39.0 % (37.0-47.0); Hemoglobin 12.8 g/dl (12.0-16.0); Imm Gran Abs Auto 0.01 X10*3/uL (0.00-0.03); Imm Gran Pct Auto 0.1 % (0.0-0.4); Lymphocytes Absolute Auto 1.1 X10*3/uL (1.2-4.9); Mean Corpuscular HGB Conc 32.8 g/dl (31.0-35.0); Mean Corpuscular Hemoglobin 30.7 pg (27.0-33.0); Mean Corpuscular Volume 93.5 fL (80.0-98.0); NRBC Abs Auto 0.000 X10*3/uL (0.0-0.012); NRBC Pct Auto 0.0 /100WBC (0.0-0.2); Platelet Count 209 X10*3/uL (160-400); Red Blood Count 4.17 X10*6/uL (4.20-5.50); White Blood Count 6.7 X10*3/uL (4.8-10.8)
[2025-07-21 11:04] LABS: Lithium 0.74 mmol/L (0.60-1.20)
[2025-07-21 11:15] LABS: Alanine Aminotransferase 27 U/L (0-31); Albumin Level 4.9 g/dL (3.5-5.0); Alkaline Phosphatase 92 U/L (39-117); Anion Gap 10 (12-20); Aspartate Amino Transferase 24 U/L (5-31); Blood Urea Nitrogen 13 mg/dL (9-16); Calcium 9.9 mg/dL (8.4-10.2); Carbon Dioxide 29 mmol/L (22-29); Chloride 109 mmol/L (96-108); Estimated Glomerular Filt Rate > 60; Potassium 4.8 mmol/L (3.3-5.1); Sodium 143 mmol/L (135-145); Total Protein 7.3 g/dL (6.5-8.0)
== END 2025-07-21 09:36 | disposition home or self-care (01) ==
LOC: HO.LAB 09:35
PROVIDERS: Psychiatry & Neurology Psychiatry; PCP Internal Medicine; Referring Provider Internal Medicine
DX: F25.0 Schizoaffective disorder, bipolar type (principal); E78.00 Pure hypercholesterolemia, unspecified; R73.9 Hyperglycemia, unspecified; E03.9 Hypothyroidism, unspecified; Z79.899 Other long term (current) drug therapy
CPT/HCPCS: 36415; 80053; 80178; 85025

== ENCOUNTER 2025-08-03 09:42 | Outpatient (AMB) | payer MEDICARE, MEDICAID, SELFPAY ==
[2025-08-03 09:59] VITALS: BP 134/64; PULSE 75; TEMP 36.2; O2SAT 98; BMI 33.5
--- NOTE | 2025-08-03 09:59 | MHC.PC.OV ---
Vital Signs 08/03/25 09:59 Height 5 ft 3 in Weight 189 lb 6 oz BMI 33.5 BP 134/64 Blood Pressure Location Lt brachial Position Sitting Pulse 75 Pulse Source Pulse Oximeter Temp 97.1 F Temp Source Temporal Artery Scan Pulse Oximetry (%) 98 Oxygen Delivery Method Room Air Intake Visit Reasons: Urinary tract infection Intake Note: Patient is here to follow up on UTI. Clothes Model Required: No Pantograph I Engraver: Not Required per policy Accompanied by: Self / Same As Patient Allergies Sulfa (Sulfonamide Antibiotics) Allergy (Mild, Verified 08/03/25 09:59) UNKNOWN Tobacco use date assessed: 08/03/25 Dental Screening Dental Screen Date: 07/19/25 [facility] Medical History Well woman exam Pre-op examination Left foot pain Preoperative clearance Hip fracture requiring operative repair longterm current use of clozapine Hypercholesterolemia Hypothyroid Liver laceration Liver problem Schizoaffective disorder, bipolar type Depression Elevated cholesterol Surgical History S/P foot surgery, left History of surgery on lower extremity History of hip replacement History of tracheostomy History of hip surgery Status post aortic coarctation stent placement H/O rhinoplasty Family History Mother No problems noted. Father No problems noted. Social History Housing: House Are you a primary intensive care nurse to a significant other at home: No Do you presently have visiting nurse or other home services: No Alcohol intake: never Patient Tobacco Use Status: Former Tobacco user Tobacco use type: Cigarette e-Cigarette/Vaping Use: Never Used Second Hand Smoke Exposure: Yes service: No Current occupational status: disabled Cognitive needs: No Hearing needs: No Vision needs: Yes (Glasses) Female Reproductive History Menstrual Age of Menarche: 10 Questionnaire Thrive Questionnaire Date Thrive assessed: 07/19/25 I am a: Patient What is your living situation today?: I have a steady place to live Within the past 12 months, did the food you bought not last and you didn't have the money to get more?: Never true Within the past 12 months, did you worry whether your food would run out before you got money to buy more?: Never true Do you have trouble paying for medicines?: No Do you have trouble getting transportation to medical appointments?: No Do you have trouble paying your heating and electricity bill?: No Do you have trouble taking care of your child, family member or friend?: No Do you have trouble with day-to-day activities such as bathing, preparing meals, shopping, managing finances, etc.?: No Are you currently unemployed and looking for a job?: No Are you interested in more education?: No Please select the resources that you would like help with: None Currently or been in a relationship where the following occur: No concerns reported THRIVE Score: 0 JYOTSNA-7 AMB Questionnaire JYOTSNA-7 Date JYOTSNA - 7 assessed: 07/19/25 Source: Developed by Drs. Adam Donohue, Gracie Toure, Rishi Abdi and colleagues, with an educational pranay from [employer]. Physical exam (Primary Care) Vital Signs: Last Vital Signs Temp 97.1 F 08/03/25 09:59 Pulse 75 08/03/25 09:59 BP 134/64 08/03/25 09:59 Pulse Ox 98 08/03/25 09:59 Oxygen Delivery Method Room Air 08/03/25 09:59 BMI result Body Mass Index 33.5 Tobacco/Smoking Status: Tobacco use Status Tobacco use date assessed 08/03/25 08/03/25 10:02 Patient Tobacco Use Status Former Tobacco user 08/03/25 10:02 Tobacco use type Cigarette 08/03/25 10:02 e-Cigarette/Vaping Use Never Used 08/03/25 10:02 Thrive Assessment: Date of Thrive Assessment Date Thrive assessed 07/19/25 08/03/25 10:02 Currently or been in a relationship where the following occur: No concerns reported Results AMB Urinalysis, Automated UA Leukoctes 0 Moose/uL Last Edit by VIRI Reyez on 08/03/25 10:09 UA Nitrite Negative Last Edit by VIRI Reyez on 08/03/25 10:09 UA Urobilinogen 0 mg/dL Last Edit by VIRI Reyez on 08/03/25 10:09 UA Protein 0 mg/dL Last Edit by VIRI Reyez on 08/03/25 10:09 UA pH 6.0 Last Edit by VIRI Reyez on 08/03/25 10:09 UA Blood 0 Kevan/uL Last Edit by Trip Mohamud A on 08/03/25 10:09 UA Specific [place] 1.015 Last Edit by ROXIE ReyezA on 08/03/25 10:09 UA Ketone Negative Last Edit by VIRI Reyez on 08/03/25 10:09 UA Bilirubin 0 mg/dL Last Edit by Trip Mohamud A on 08/03/25 10:09 UA Glucose 0 mg/dL Last Edit by VIRI Reyez on 08/03/25 10:09 Results Reviewed Results Reviewed: Laboratory Last Values Urine pH (Auto) 6.0 08/03/25 09:58 Specific [place] (Auto) 1.015 08/03/25 09:58 Urine Protein (Auto) 0 mg/dL 08/03/25 09:58 Glucose (UA)(Auto) 0 mg/dL 08/03/25 09:58 Urine Ketones (Auto) Negative 08/03/25 09:58 Urine Blood (Auto) 0 Kevan/uL 08/03/25 09:58 Urine Nitrite (Auto) Negative 08/03/25 09:58 Urine Bilirubin (Auto) 0 mg/dL 08/03/25 09:58 Urine Urobilinogen (Auto) 0 mg/dL 08/03/25 09:58 Leukocyte Esterase (Auto) 0 Moose/uL 08/03/25 09:58 Coding Level of Care Code Est Pt Level 4 (68800) Diagnoses Schizoaffective disorder, bipolar type F25.0 Assessment & Plan Assessment & Plan (1) Schizoaffective disorder, bipolar type: Comment: bipolar Code(s): F25.0 - Schizoaffective disorder, bipolar type Category: Medical Plan: History of Present Illness - The patient is a 50-year-old female presenting with urinary urgency and for follow-up after electroconvulsive therapy (ECT). - Urinary urgency: The patient experiences a frequent urge to urinate, often with minimal output, and denies any associated dysuria, hematuria, or lumbar pain. - Electroconvulsive therapy (ECT): The patient underwent ECT five weeks ago, reporting improvement in her condition, and is scheduled for another session. Social History Review of Systems - Genitourinary: Reports urinary urgency with minimal output. Denies dysuria, hematuria, or back pain. Physical Exam General: Cooperative and healthy appearing Nutritional Appearance: Well nourished Orientation/consciousness: Patient oriented x3 Limitations: No limitations Head: Normal to inspection General: Appearance normal, both eyes and all related structures Neck: Normal visual inspection Chest: Normal palpation of entire chest wall Respiratory: Normal respiratory effort Neurology: Patient oriented x3 Results Plan 1. Urinary Urgency - Monitor symptoms and consider further evaluation if symptoms persist or worsen. 2. Electroconvulsive Therapy (Ect) Follow-Up - Scheduled for ECT tomorrow with clearance obtained. Discussion Notes During the visit, we discussed the patient's urinary urgency and the plan to monitor symptoms, with further evaluation if necessary. We also confirmed the patient's upcoming ECT session and ensured all necessary clearances were in place. Patient Instructions - Monitor urinary symptoms and report any changes or worsening. - Attend scheduled ECT session tomorrow. Plan Patient cleared for ECT tomorrow Orders: Orders AMB Urinalysis Automated Today Z13.9 - Encounter for screening, unspecified
--- OUTSIDE RECORDS SUMMARY | 2025-08-03 11:26 | XMS_ITS | Patient Health Record ---
Author Organization [facility] Address [address] [place] [address] Care Team Providers Care Nutrition Technician Name Role Phone RAMIREZ, KARTIK Primary Care Provider Adam Craig Unavailable [phone] Kim GAN, Jose Carlos Unavailable Unavailable Allergies [...] 112 MCG Oral for 30 Days Active [place] Carbonate 300 MG Oral for 90 Days [...] Status Risk Notes Problem Colon cancer screening (364948423) Colon cancer screening (Z12.11) Active confirmed Problem 122279067 Irritable bowel syndrome with diarrhea (K58.0) Active confirmed Problem 05476449 Internal hemorrhoid (K64.8) Active confirmed Vital Signs Temperature 98.9 degrees Fahrenheit 05/19/2025 Blood pressure diastolic 01 mm Hg 05/19/2025 Height 63 in 05/19/2025 Blood pressure systolic 001 mm Hg 05/19/2025 Weight 189.6 lbs 05/19/2025 BMI 33.58 kg/m2 05/19/2025 Encounters Encounter Location Date Provider Diagnosis [facility] [address] [place] [address] 05/19/2025 Adam Medrano Irritable bowel syndrome with [...] Name:Adam Medrano , 11/21/2025 09:50:00 AM, [address] [place] [address], [address], [place], [address], Insurance Providers Payer Name Payer Address Payer Phone Subscriber Number Group Number Insured Name Patient Relationship to Insured Coverage Start Date Coverage End Date MEDICARE OF [place] [address] [place] [id number] ANAY DUFF Self - patient is the insured 3 MEDICAID OF [facility] [address] [place] [address] [phone] [id number] ANAY DUFF Self - patient is the insured Medical (General) History Medical History History ICD Code Denies [place],DM,CVA,Lung disease,renal dise ase Bipolar depression-She sees Dr. Alvarez at [facility]. She reports that she will be starting [...] microscopic colitis Surgical History Surgery Date(Month/Year) -2018-at [facility]- trache ostomy- in hospital for 1 month-She had a hip replacement at that time. Rhinoplasty-cosmetic
--- OUTSIDE RECORDS SUMMARY | 2025-08-03 11:26 | XMS_ITS | Clinical Summary ---
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 10/04/2024 Hip fracture requiring opera tive repair ([facility] V24, [facility] V28) 10/04/2024 Immunizations Name Administration [...] Documents on File Type Date Recorded Patient Diamond Setter Expl anation Health Care Decision (hx) 01/16/2015 AD MONGE DIRECTIVE Health Care Decision (hx) 01/16/2015 AD MONGE DIRECTIVE Health Care Decision (hx) 01/16/2015 AD MONGE DIRECTIVE Care Teams Marble Cutter Relationship Specialty Start Date End Date Bashir Tadeo MD [facility] [address] [place] [address] [address] [facility] [address] PCP - General Internal Medicine 08/30/24
== END 2025-08-03 11:49 | disposition home or self-care (01) ==
LOC: HO.HMCH 09:43
PROVIDERS: PCP Internal Medicine; Visit Provider Internal Medicine
DX: Z13.9 Encounter for screening, unspecified (principal); F25.0 Schizoaffective disorder, bipolar type

== ENCOUNTER → 2025-08-03 09:42 | Outpatient (BNVA) | payer MEDICARE, MEDICAID, SELFPAY | PROVIDERS: PCP Internal Medicine; Visit Provider Internal Medicine | DX: F25.0 Schizoaffective disorder, bipolar type (principal) | CPT/HCPCS: 81003; 99212 ==

== ENCOUNTER 2025-08-04 06:03 | Day surgery (SDC) | payer MEDICARE, MEDICAID, SELFPAY ==
--- OUTSIDE RECORDS SUMMARY | 2025-07-03 09:13 | XMS_ITS | Clinical Summary ---
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 current use of clozapine 10/04/2024 Hip fracture requiring opera tive repair ([facility] V24, [facility] V28) 10/04/2024 [...] Documents on File Type Date Recorded 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
--- OUTSIDE RECORDS SUMMARY | 2025-07-03 09:13 | XMS_ITS | Patient Health Record ---
Author Organization [facility] Address [address] [place] [address] Care Team Providers Care Educational Resource Center Teacher Name Role Phone RAMIREZ, KARTIK Primary Care Provider Adam Craig Unavailable [phone] Kim GAN, Jose Carlos Unavailable Unavailable Allergies [...] 112 MCG Oral for 30 Days Active [place] Carbonate 300 MG Oral for 90 Days [...] Colon cancer screening (Z12.11) Active confirmed Problem 360000627 Irritable bowel syndrome with diarrhea (K58.0) Active confirmed Problem 12334909 Internal hemorrhoid (K64.8) Active confirmed Vital Signs Temperature 98.9 degrees Fahrenheit 05/19/2025 Blood pressure diastolic 01 mm Hg 05/19/2025 Height 63 in 05/19/2025 Blood pressure systolic 001 mm Hg 05/19/2025 Weight 189.6 lbs 05/19/2025 BMI 33.58 kg/m2 05/19/2025 Encounters Encounter Location Date Provider Diagnosis [facility] [address] [place] [address] 05/19/2025 Adam Medrano Irritable bowel syndrome with [...] Provider Name:Adam Medrano , 11/21/2025 09:50:00 AM, [address] [place] [address], [address], [place], [address], Insurance Providers Payer Name Payer Address Payer Phone Subscriber Number Group Number Insured Name Patient Relationship to Insured Coverage Start Date Coverage End Date MEDICARE OF [place] [address] [place] [id number] ANAY DUFF Self - patient is the insured 3 MEDICAID OF [facility] [address] [place] [address] [id number] ANAY DUFF Self - patient is the insured Medical (General) History Medical History History ICD Code Denies [place],DM,CVA,Lung disease,renal dise ase Bipolar depression-She sees Dr. Alvarez at [facility]. She reports that [...] microscopic colitis Surgical History Surgery Date(Month/Year) -2018-at [facility]- trache ostomy- in hospital for 1 month-She had a hip replacement at that time. Rhinoplasty-cosmetic
[2025-08-04] VITALS (7 sets, daily range): BP systolic 111–142; BP diastolic 57–67; PULSE 49–77; RESP 10–25; TEMP 36.6–36.9; O2SAT 96–98; BMI 33.6
--- NOTE | 2025-08-04 06:58 | P.CONAN_ITS ---
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 (Acute) Tinea pedis (Acute) Left foot pain (Acute) Shortness of breath (Acute) Hyperkalemia (Acute) Diarrhea (Acute) Palpitation (Acute) Eczema (Acute) Postmenopausal bleeding (Acute) Amenorrhea (Acute) Menopause (Acute) Complex ovarian cyst (Acute) Elevated blood pressure reading without diagnosis of hypertension (Acute) Hypercholesterolemia (Acute) Hypothyroid (Acute) Schizoaffective disorder, bipolar type (Chronic) Past Medical History Medical History Well woman exam Pre-op examination Left foot pain Preoperative clearance 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 Father No problems noted. Family history of problems with anesthesia: No Surgical History Surgical History S/P foot surgery, left History of surgery on lower extremity History of hip replacement History of tracheostomy History of hip surgery Status post aortic coarctation stent placement H/O rhinoplasty History of Problems with Anesthesia: No Social History Social History Housing: House Are you a primary physician primary care sports medicine to a significant other at home: No Do you presently have visiting nurse or other home services: No Alcohol intake: never Patient Tobacco Use Status: Former Tobacco user Tobacco use type: Cigarette e-Cigarette/Vaping Use: Never Used Second Hand Smoke Exposure: Yes Advance Directives: No Advance Directives Information Provided: Yes service: No Current occupational status: disabled Cognitive needs: No Hearing needs: No Vision needs: Yes (Glasses) Meds Allergies Allergy/AdvReac Type Severity Reaction Status Date / Time Sulfa (Sulfonamide Allergy Mild UNKNOWN Verified 08/03/25 09:59 Antibiotics) Home Medications ?Medication ?Instructions ?Recorded ?Confirmed ?Last Taken ?Type cholecalciferol (vitamin D3) 25 25 mcg PO DAILY 04/04/25 Unknown History mcg (1,000 unit) capsule Exam Height,Weight and Vital Signs: Height 5 ft 3 in Weight 86 kg Last Vital Signs Temp 98 F 08/04/25 06:16 Pulse 77 08/04/25 06:16 Resp 25 H 08/04/25 06:16 BP 140/63 H 08/04/25 06:16 Pulse Ox 97 08/04/25 06:16 O2 Del Method Room Air 08/04/25 06:16 Airway Mallampati Class: II TM Dist: >3cm Neck ROM: Full Heart: rrr Lungs: cta Assessment and Plan Assessment Anesthesia Assessment: Anesthesia Plan Discussed and Chart Reviewed Final Anesthetic Review Family History of Problems with Anesthesia: No History of Problems with Anesthesia: No NPO: Yes ASA Class: III Final Preanesthetic Review: No Changes in Pt Med Stat, Meds/Allgs Chart Reviewed and Consent Obtained/Reviewed Patient Risk: Intermediate Procedure Risk: Intermediate Anesthetic Plan Anesthetic Plan: GA Disposition: Standard PACU
--- NOTE | 2025-08-04 07:05 | MHC.SHP ---
Pre-Procedural Eval Section A - 24 Hr Update-Section A only Date of Service: 08/04/25 The patient is an INPATIENT: No Changes since office visit: No Cold of Flu in the past 2 weeks The patient has been examined within 24 hours of the surgical procedure. The History & Physical has been completed within 30 days and I have reviewed it.: Yes Section B - Complete if H&P > 30 days Chief Complaint: depression Details of Present Illness: bipolar dep with pi no active si Relevant Family History (Specify if Yes): No Relevant Social History: None Present Medications: see Short Stay Collaborative assessment Medical History: No relevant PMH History of Previous Operations: No relevant previous surgery Allergies: Allergies Allergy/AdvReac Type Severity Reaction Status Date / Time Sulfa (Sulfonamide Allergy Mild UNKNOWN Verified 08/03/25 09:59 Antibiotics) Review of Systems Sugical H&P ROS: Negative: Cardiovascular, Respiratory, Genitourinary, Musculoskeletal and Eyes/Ears/Nose/Throat and Yes, Specify: Neurological (some st memory dysfx mild muscle occ invol twitch improved ) and Psychiatric (some pi and depression) Exam Surgical H&P Exam: Normal: HEENT, Normal: Heart, Normal: Lungs and Normal: Neurological Exam Comment: 140/67 p 78 alert oriented not confused Plan Diagnosis/Plan: Unchanged I have reviewed the history and physical and performed a pertinent physical examination on my patient. No changes have occurred unless specified. Time Spent With Patient Time: Total time managing care of this patient today ____ minutes.
--- NOTE | 2025-08-04 07:18 | HO.ECTPROC ---
ECT Procedure Note Diagnosis/Treatment Date of Service: 08/04/25 Diagnosis: Schizoaffective Disorder Treatment: Maintenance Interval Clinical Notes: Patient generally doing okay has some degree of chronic attentional problems periods of anxiety related to chronic paranoia that is helped by ECT. Also feels her mood is significantly improved with maintenance ECT treatment. Has tolerated bifrontal treatment Time: Total time managing care of this patient today ____ minutes. ECT Settings Device: THYMATRON DGx Electrode Placement: Bifrontal Program/Pulse Width: 0.25 Energy Percent: 65 Seizure Duration By EEG (in seconds): 51 Medications Administration General Anesthetic: Etomidate (18) Muscle Relaxant: Succinylcholine (100) Ancillary Medications Analgesics: Torodol - Pre ECT (15) Anti-emetics: Zofran - Pre ECT (4) Airway Management Airway Management: Bag Mask Ventilation Treatment Recommendations Notes: Follow-up 3-4 weeks monitor for cognitive side effects has generally tolerated treatment Pt Tolerated Procedure w/o Issue: Yes
== END 2025-08-04 08:22 | disposition home or self-care (01) ==
PROVIDERS: PCP Internal Medicine; Visit Provider Psychiatry & Neurology Psychiatry
PROC: (CPT 90870; principal; 2025-08-04 07:00)
DX: F25.0 Schizoaffective disorder, bipolar type (principal); F22 Delusional disorders; E78.00 Pure hypercholesterolemia, unspecified; E03.9 Hypothyroidism, unspecified; Z79.899 Other long term (current) drug therapy; Z88.2 Allergy status to sulfonamides; Z98.890 Other specified postprocedural states; Z87.891 Personal history of nicotine dependence
CPT/HCPCS: 90870; J0330; J1885; J2405

== ENCOUNTER → 2025-08-04 06:03 | Outpatient (BNV) | payer MEDICARE, MEDICAID, SELFPAY | PROVIDERS: PCP Internal Medicine; Visit Provider Psychiatry & Neurology Psychiatry | DX: F25.0 Schizoaffective disorder, bipolar type (principal) | CPT/HCPCS: 90870 ==

== ENCOUNTER 2025-08-15 10:33 | Outpatient (AMB) | payer MEDICARE, MEDICAID, SELFPAY ==
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
--- OUTSIDE RECORDS SUMMARY | 2025-08-15 12:53 | XMS_ITS | Clinical Summary ---
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 10/04/2024 Hip fracture requiring opera tive repair ([facility] V24, [facility] V28) 10/04/2024 Immunizations Name Administration [...] on File Type Date Recorded 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
--- OUTSIDE RECORDS SUMMARY | 2025-08-15 12:53 | XMS_ITS | Patient Health Record ---
Author Organization [facility] Address [address] [place] [address] Care Team Providers Care Switchbox Assembler Name Role Phone RAMIREZ, KARTIK Primary Care Provider Adam Craig Unavailable [phone] Kim GAN, Jose Carlos Unavailable Unavailable Allergies [...] 112 MCG Oral for 30 Days Active [place] Carbonate 300 MG Oral for 90 Days [...] Status Risk Notes Problem Colon cancer screening (119437012) Colon cancer screening (Z12.11) Active confirmed Problem 138113315 Irritable bowel syndrome with diarrhea (K58.0) Active confirmed Problem 15048138 Internal hemorrhoid (K64.8) Active confirmed Vital Signs Temperature 98.9 degrees Fahrenheit 05/19/2025 Blood pressure diastolic 01 mm Hg 05/19/2025 Height 63 in 05/19/2025 Blood pressure systolic 001 mm Hg 05/19/2025 Weight 189.6 lbs 05/19/2025 BMI 33.58 kg/m2 05/19/2025 Encounters Encounter Location Date Provider Diagnosis [facility] [address] [place] [address] 05/19/2025 Adam Medrano Irritable bowel syndrome with [...] Provider Name:Adam Medrano , 11/21/2025 09:50:00 AM, [address] [place] [address], [address], [place], [address], Insurance Providers Payer Name Payer Address Payer Phone Subscriber Number Group Number Insured Name Patient Relationship to Insured Coverage Start Date Coverage End Date MEDICARE OF [place] [address] [place] [id number] ANAY DUFF Self - patient is the insured 3 MEDICAID OF [facility] [address] [place] [address] [phone] [id number] ANAY DUFF Self - patient is the insured Medical (General) History Medical History History ICD Code Denies SD,DM,CVA,Lung disease,renal dise ase Bipolar depression-She sees Dr. Alvarez at [facility]. She reports that [...] microscopic colitis Surgical History Surgery Date(Month/Year) -2018-at [facility]- trache ostomy- in hospital for 1 month-She had a hip replacement at that time. Rhinoplasty-cosmetic
== END 2025-08-15 11:34 | disposition home or self-care (01) ==
LOC: HO.HOP 10:33
PROVIDERS: PCP Internal Medicine; Visit Provider Psychiatry & Neurology Psychiatry
DX: F25.0 Schizoaffective disorder, bipolar type (principal)
CPT/HCPCS: 90833; 99213

== ENCOUNTER 2025-08-15 10:33 | Outpatient (REF) | payer MEDICARE, MEDICAID, SELFPAY ==
[2025-08-15 12:39] LABS: Specific Gravity - Urine <= 1.005 (1.005-1.025)
[2025-08-15 12:43] LABS: Lithium 0.84 mmol/L (0.60-1.20)
[2025-08-15 13:50] LABS: Total Protein Urine Random < 7 mg/dL (<12)
[2025-08-15 14:32] LABS: Alanine Aminotransferase 23 U/L (0-31); Albumin Level 5.0 g/dL (3.5-5.0); Alkaline Phosphatase 79 U/L (39-117); Anion Gap 12 (12-20); Aspartate Amino Transferase 23 U/L (5-31); Blood Urea Nitrogen 19 mg/dL (9-16); Calcium 10.1 mg/dL (8.4-10.2); Carbon Dioxide 30 mmol/L (22-29); Chloride 106 mmol/L (96-108); Estimated Glomerular Filt Rate > 60; Potassium 4.9 mmol/L (3.3-5.1); Sodium 143 mmol/L (135-145); Total Protein 7.4 g/dL (6.5-8.0)
== END 2025-08-15 10:34 | disposition home or self-care (01) ==
LOC: HO.LAB 10:33
PROVIDERS: PCP Internal Medicine; Visit Provider Psychiatry & Neurology Psychiatry
DX: F25.0 Schizoaffective disorder, bipolar type (principal); Z51.81 Encounter for therapeutic drug level monitoring; R35.89 Other polyuria; R73.9 Hyperglycemia, unspecified; E03.9 Hypothyroidism, unspecified
CPT/HCPCS: 36415; 80053; 80178; 83036; 84156; 99212

== ENCOUNTER 2025-08-23 14:18 | Outpatient (AMB) | payer MEDICARE, MEDICAID, SELFPAY ==
--- NOTE | 2025-08-23 14:36 | A.OFFPC_ITS ---
Vital Signs 08/23/25 14:38 Height 5 ft 3 in Weight 189 lb 6 oz BMI 33.5 BP 122/64 Blood Pressure Location Lt brachial Position Sitting Pulse 65 Pulse Source Pulse Oximeter Temp 97.3 F Temp Source Temporal Artery Scan Pulse Oximetry (%) 98 Oxygen Delivery Method Room Air Intake Visit Reasons: annual exam Intake Note: Patient is here today for a physical. Regional Guide Required: No Product Manager Medical Device: Not Required per policy Accompanied by: Self / Same As Patient Allergies Sulfa (Sulfonamide Antibiotics) Allergy (Mild, Verified 08/23/25 14:37) UNKNOWN Tobacco use date assessed: 08/23/25 Dental Screening Dental Screen Date: 07/19/25 PENDING SALE TO [facility] Medical History Well woman exam Pre-op examination Left foot pain Preoperative clearance Hip fracture requiring operative repair senior living current use of clozapine Hypercholesterolemia Hypothyroid Liver laceration Liver problem Schizoaffective disorder, bipolar type Depression Elevated cholesterol Surgical History S/P foot surgery, left History of surgery on lower extremity History of hip replacement History of tracheostomy History of hip surgery Status post aortic coarctation stent placement H/O rhinoplasty Family History Mother No problems noted. Father No problems noted. Social History Housing: House Are you a primary transitional care nurse to a significant other at home: No Do you presently have visiting nurse or other home services: No Alcohol intake: never Patient Tobacco Use Status: Former Tobacco user Tobacco use type: Cigarette e-Cigarette/Vaping Use: Never Used Second Hand Smoke Exposure: Yes service: No Current occupational status: disabled Cognitive needs: No Hearing needs: No Vision needs: Yes (Glasses) Female Reproductive History Menstrual Age of Menarche: 10 Questionnaire PHQ-9 Over the last 2 weeks, how often have you been bothered by any of the following problems? 1. Little interest or pleasure in doing things: not at all 2. Feeling down, depressed, or hopeless: not at all 3. Trouble falling or staying asleep, or sleeping too much: not at all 4. Feeling tired or having little energy: not at all 5. Poor appetite or overeating: several days 6. Feeling bad about yourself - or that you are a failure or have let yourself or your family down: not at all 7. Trouble concentrating on things, such as reading the newspaper or watching television: several days 8. Moving or speaking so slowly that other people could have noticed. Or the opposite - being so fidgety or restless that you have been moving around a lot more than usual: not at all 9. Thoughts that you would be better off or of hurting yourself in some way: not at all Total score: 2 Depression Screening Interpretation: Positive Depression Screening Done: Yes Source: Developed by Drs. Adam Donohue, Rishi Mane and colleagues, with an educational pranay from [employer]. Thrive Questionnaire Date Thrive assessed: 07/19/25 I am a: Patient What is your living situation today?: I have a steady place to live Within the past 12 months, did the food you bought not last and you didn't have the money to get more?: Never true Within the past 12 months, did you worry whether your food would run out before you got money to buy more?: Never true Do you have trouble paying for medicines?: No Do you have trouble getting transportation to medical appointments?: No Do you have trouble paying your heating and electricity bill?: No Do you have trouble taking care of your child, family member or friend?: No Do you have trouble with day-to-day activities such as bathing, preparing meals, shopping, managing finances, etc.?: No Are you currently unemployed and looking for a job?: No Are you interested in more education?: No Please select the resources that you would like help with: None Currently or been in a relationship where the following occur: No concerns reported THRIVE Score: 0 JYOTSNA-7 AMB Questionnaire JYOTSNA-7 Date JYOTSNA - 7 assessed: 07/19/25 Source: Developed by Drs. Adam Donohue, Rishi Mane and colleagues, with an educational pranay from [employer]. Physical exam (Primary Care) Vital Signs: Last Vital Signs Temp 97.3 F 08/23/25 14:38 Pulse 65 08/23/25 14:38 BP 122/64 08/23/25 14:38 Pulse Ox 98 08/23/25 14:38 Oxygen Delivery Method Room Air 08/23/25 14:38 BMI result Body Mass Index 33.5 Tobacco/Smoking Status: Tobacco use Status Tobacco use date assessed 08/23/25 08/23/25 14:43 Patient Tobacco Use Status Former Tobacco user 08/23/25 14:43 Tobacco use type Cigarette 08/23/25 14:43 e-Cigarette/Vaping Use Never Used 08/23/25 14:43 PHQ-9: PHQ-9 Score PHQ-9: Total score 2 08/23/25 14:43 Depression Screening Interpretation: Positive Thrive Assessment: Date of Thrive Assessment Date Thrive assessed 07/19/25 08/23/25 14:43 Currently or been in a relationship where the following occur: No concerns reported Coding Level of Care Code Est Pt Prev Care 40-64y(18015) Diagnoses Annual physical exam Z00.00 Assessment & Plan Assessment & Plan (1) Annual physical exam: Code(s): Z00.00 - Encounter for general adult medical examination without abnormal findings Category: Medical Plan: History of Present Illness - The patient is a 50-year-old female presenting for a physical examination and management of allergic symptoms. - Allergic rhinitis: The patient reports a runny nose and eyes, with Claritin providing no relief. - She considered taking Claritin separately from other medications to improve its effectiveness. - Irritable bowel syndrome: Diagnosed in 2017 following a colonoscopy, with no recent symptoms reported. - Preventative care: The patient is current on mammograms and has had multiple EKGs due to cardioversion. - She has no family history of colon cancer and denies diarrhea or blood in the stool. Social History - The patient is currently driving and staying with her mother. Review of Systems - Respiratory: Reports runny nose and eyes. Denies cough or wheezing. - Gastrointestinal: Denies diarrhea or blood in the stool. Physical Exam General: Cooperative and healthy appearing Nutritional Appearance: Well nourished Orientation/consciousness: Patient oriented x3 Limitations: No limitations Head: Normal to inspection General: Appearance normal, both eyes and all related structures Neck: Normal visual inspection Chest: Normal palpation of entire chest wall Respiratory: Normal respiratory effort Neurology: Patient oriented x3 Results Plan - The patient should try taking Claritin separately from other medications to evaluate its effectiveness. - A nasal spray was considered but previously found ineffective by the patient. - A Cologuard test was ordered for colon cancer screening due to the absence of a recent colonoscopy. Discussion Notes I discussed with the patient the option of taking Claritin separately from her other medications to see if it improves her allergic symptoms. We also talked about the use of a nasal spray, which she had tried before without success. I recommended a Cologuard test for colon cancer screening, explaining the procedure and its benefits, given her lack of recent colonoscopy and no family history of colon cancer. Patient Instructions - Try taking Claritin separately from other medications to see if it helps with symptoms. - Follow the instructions for the Cologuard test when it arrives and send the sample as directed. Orders: Referrals Cologuard Test Z12.11 - Encounter for screening for malignant neoplasm of colon
[2025-08-23 14:38] VITALS: BP 122/64; PULSE 65; TEMP 36.3; O2SAT 98; BMI 33.5
--- OUTSIDE RECORDS SUMMARY | 2025-08-23 15:31 | XMS_ITS | Clinical Summary ---
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 10/04/2024 Hip fracture requiring opera tive repair ([facility] V24, [facility] V28) 10/04/2024 Immunizations Immunization Administration Dates Next Due Moderna SARS-CoV-2 COVID-19, [...] Last Done Comments Breast Cancer Screening 1973 Colorectal Cancer Screening: Colonoscopy 1973 Hepatitis B Vaccines (1 of 3 - 19+ 3-dose series) 1992 Cervical Cancer Screening: Pap Smear 1994 Cholesterol Screening (Lipid Panel) 10/26/2022 HIV Screening 10/26/2022 Hepatitis C Screening 10/26/2022 Medicare Annual Wellness Visit 10/26/2022 Social Influencers of Health Screening 10/26/2022 Depression Screening 11/23/2024 COVID-19 Vaccine (7 - Moderna risk season) 2025 07/19/2024, 08/30/2023, 09/15/2022, Additional history exists Influenza Vaccine (#1) 2025 , 08/30/2023, 09/15/2022, Additional history exists DTaP,Tdap,and Td Vaccines (6 - Td or Tdap) 01/20/2035 01/20/2025, 07/19/2024, 03/17/2017, Additional history exists RSV Immunization Adult Patients (1 - 1-dose 75+ series) 2048 Zoster Vaccines Completed 05/23/2024, 03/05/2024 Pneumococcal Vaccine: [...] Documents on File Type Date 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
== END 2025-08-23 14:55 | disposition home or self-care (01) ==
LOC: HO.HMCH 14:18
PROVIDERS: PCP Internal Medicine; Visit Provider Internal Medicine
DX: Z00.00 Encounter for general adult medical examination without abnormal findings (principal)

== ENCOUNTER → 2025-08-23 14:18 | Outpatient (BNVA) | payer MEDICARE, MEDICAID, SELFPAY | PROVIDERS: PCP Internal Medicine; Visit Provider Internal Medicine | DX: Z00.00 Encounter for general adult medical examination without abnormal findings (principal) | CPT/HCPCS: 96127; 99396 ==

== ENCOUNTER 2025-09-29 05:58 | Day surgery (SDC) | payer MEDICARE, MEDICAID, SELFPAY ==
--- OUTSIDE RECORDS SUMMARY | 2025-09-28 17:56 | XMS_ITS | Clinical Summary ---
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 10/04/2024 Hip fracture requiring opera tive repair ([facility] V24, [facility] V28) 10/04/2024 Immunizations Immunization Administration Dates Next [...] Documents on File Type Date Recorded Patient Minister Expl anation Health Care Decision (hx) 01/16/2015 AD MONGE DIRECTIVE Health Care Decision (hx) 01/16/2015 AD MONGE DIRECTIVE Health Care Decision (hx) 01/16/2015 AD MONGE DIRECTIVE Care Teams Bingo Floater Relationship Specialty Start Date End Date Bashir Tadeo MD [facility] [address] [place] [address] [address] [place] [address] PCP - General Internal Medicine 08/30/24
--- OUTSIDE RECORDS SUMMARY | 2025-09-28 17:56 | XMS_ITS | Patient Health Record ---
Author Organization [facility] Address [address] [place] [address] Care Team Providers Care Adjunct Teacher Name Role Phone RAMIREZSHANIA Primary Care Provider Adam Craig Unavailable [phone] Kim GAN, Jose Carlos Unavailable Unavailable Allergies [...] 112 MCG Oral; Duration: 30 Days Active [place] Carbonate 300 MG Oral; Duration: 90 Days [...] Status Risk Notes Problem Colon cancer screening (759870791) Colon cancer screening (Z12.11) Active confirmed Problem Irritable bowel syndrome with diarrhea (397902247) Irritable bowel syndrome with diarrhea (K58.0) Active confirmed Problem Internal hemorrhoid (50710139) Internal hemorrhoid (K64.8) Active confirmed Vital Signs Temperature 98.9 degrees Fahrenheit 05/19/2025 Blood pressure diastolic 01 mm Hg 05/19/2025 Height 63 in 05/19/2025 Blood pressure systolic 001 mm Hg 05/19/2025 Weight 189.6 lbs 05/19/2025 BMI 33.58 kg/m2 05/19/2025 Encounters Encounter Location Date Provider Diagnosis [facility] [address] [place] [phone] 05/19/2025 Adam Medrano Irritable bowel syndrome with [...] Provider Name:Adam Medrano , 11/21/2025 09:50:00 AM, [address] [place] [address], [address], [place], [address], Insurance Providers Payer Name Payer Address Payer Phone Subscriber Number Group Number Insured Name Patient Relationship to Insured Coverage Start Date Coverage End Date MEDICARE OF [place] [address] [place] [address] [id number] ANAY DUFF Self - patient is the insured 3 MEDICAID OF [facility] [address] [place] [address] [phone] [id number] ANAY DUFF Self - patient is the insured Medical (General) History Medical History History ICD Code Denies [place],DM,CVA,Lung disease,renal dise ase Bipolar depression-She sees Dr. Alvarez at [facility]. She reports that she will be starting [...] microscopic colitis Surgical History Surgery Date(Month/Year) -2018-at [facility]- trache ostomy- in hospital for 1 month-She had a hip replacement at that time. Rhinoplasty-cosmetic
[2025-09-29 06:31] VITALS: BMI 31.7
[2025-09-29 06:32] VITALS: BP 161/79; PULSE 81; RESP 20; TEMP 36.5; O2SAT 97
--- NOTE | 2025-09-29 06:51 | MHC.SHP ---
Pre-Procedural Eval Section A - 24 Hr Update-Section A only Date of Service: 09/29/25 The patient is an INPATIENT: No Changes since office visit: No Cold of Flu in the past 2 weeks, No New Medical Problems, No Changes in Medication and No Patient answered all questions The patient has been examined within 24 hours of the surgical procedure. The History & Physical has been completed within 30 days and I have reviewed it.: No Section B - Complete if H&P > 30 days Chief Complaint: depression Details of Present Illness: Depressed. Here for ECT Relevant Family History (Specify if Yes): No Relevant Social History: None Present Medications: see Short Stay Collaborative assessment Medical History: No relevant PMH History of Previous Operations: No relevant previous surgery Allergies: Allergies Allergy/AdvReac Type Severity Reaction Status Date / Time Sulfa (Sulfonamide Allergy Mild UNKNOWN Verified 08/23/25 14:37 Antibiotics) Review of Systems Sugical H&P ROS: Negative: Constitution, Cardiovascular, Respiratory, Neurological, Hem-Onc, Allergic/Immunologic, Gastrointestinal, Genitourinary, Musculoskeletal, Integumentary, Endocrine and Eyes/Ears/Nose/Throat and Yes, Specify: Psychiatric (depressed) Exam Surgical H&P Exam: Normal: HEENT, Normal: Heart, Normal: Lungs, Normal: Extremities, Normal: Abdomen, Normal: Skin and Normal: Neurological Plan Diagnosis/Plan: Unchanged I have reviewed the history and physical and performed a pertinent physical examination on my patient. No changes have occurred unless specified. Time Spent With Patient Time: Total time managing care of this patient today ___ minutes.
--- NOTE | 2025-09-29 06:58 | HO.ECTPROC ---
ECT Procedure Note Diagnosis/Treatment Date of Service: 09/29/25 Diagnosis: Major Depressive Disorder Previous ECT Date: 08/04/25 Treatment: Maintenance Interval Clinical Notes: Pt reports that she usually comes for mECT q4 wks but had to cancel due to some issues that came up. She has felt more depressed with the longer interval btwn tx. She plans to return next MWF. She denies SI. Denies any issues with last tx. A/O x 3. Time: Total time managing care of this patient today ____ minutes. ECT Settings Device: THYMATRON DGx Electrode Placement: Bifrontal Program/Pulse Width: 0.25 Energy Percent: 65 Seizure Duration By EEG (in seconds): 81 By Motor Observation (in seconds): 47 Medications Administration General Anesthetic: Etomidate (18 mg) Muscle Relaxant: Succinylcholine (100 mg) Ancillary Medications Analgesics: Torodol - Pre ECT (15 mg) Anti-emetics: Zofran - Pre ECT (4 mg) Airway Management Airway Management: Bag Mask Ventilation
[2025-09-29 07:29] VITALS: BP 119/57; PULSE 65; RESP 22; TEMP 37.3; O2SAT 100
[2025-09-29 07:30] VITALS: BP 119/57; PULSE 68; RESP 22; O2SAT 100
[2025-09-29 07:40] VITALS: BP 112/71; PULSE 67; RESP 12; O2SAT 100
[2025-09-29 07:45] VITALS: BP 115/64; PULSE 71; RESP 12; O2SAT 100
[2025-09-29 07:58] LABS: MANUAL DIFF FLAG NO
[2025-09-29 08:00] VITALS: BP 112/66; PULSE 77; RESP 12; O2SAT 98
[2025-09-29 08:01] LABS: Hematocrit 41.3 % (37.0-47.0); Hemoglobin 13.6 g/dl (12.0-16.0); Imm Gran Abs Auto 0.06 X10*3/uL (0.00-0.03); Imm Gran Pct Auto 0.7 % (0.0-0.4); Lymphocytes Absolute Auto 0.7 X10*3/uL (1.2-4.9); Mean Corpuscular HGB Conc 32.9 g/dl (31.0-35.0); Mean Corpuscular Hemoglobin 30.6 pg (27.0-33.0); Mean Corpuscular Volume 93.0 fL (80.0-98.0); NRBC Abs Auto 0.000 X10*3/uL (0.0-0.012); NRBC Pct Auto 0.0 /100WBC (0.0-0.2); Platelet Count 224 X10*3/uL (160-400); Red Blood Count 4.44 X10*6/uL (4.20-5.50); White Blood Count 8.2 X10*3/uL (4.8-10.8)
[2025-09-29 08:11] LABS: Lithium 0.41 mmol/L (0.60-1.20)
[2025-09-29 08:19] LABS: Alanine Aminotransferase 20 U/L (0-31); Albumin Level 4.9 g/dL (3.5-5.0); Alkaline Phosphatase 90 U/L (39-117); Anion Gap 16 (12-20); Aspartate Amino Transferase 21 U/L (5-31); Blood Urea Nitrogen 13 mg/dL (9-16); Calcium 9.8 mg/dL (8.4-10.2); Carbon Dioxide 24 mmol/L (22-29); Chloride 108 mmol/L (96-108); Creatinine Clr Calc Pharmacy 68.4; Estimated Glomerular Filt Rate > 60; Potassium 4.8 mmol/L (3.3-5.1); Sodium 143 mmol/L (135-145); Total Protein 7.5 g/dL (6.5-8.0)
== END 2025-09-29 08:27 | disposition home or self-care (01) ==
PROVIDERS: PCP Internal Medicine; Visit Provider Psychiatry & Neurology Psychiatry
PROC: (CPT 90870; principal; 2025-09-29 07:00)
DX: F33.2 Major depressive disorder, recurrent severe without psychotic features (principal); E78.00 Pure hypercholesterolemia, unspecified; E03.9 Hypothyroidism, unspecified; Z79.899 Other long term (current) drug therapy; Z88.2 Allergy status to sulfonamides; Z98.890 Other specified postprocedural states; Z87.891 Personal history of nicotine dependence
CPT/HCPCS: 36415; 80053; 80178; 85025; 90870; J0330; J1885; J2405

== ENCOUNTER → 2025-09-29 05:58 | Outpatient (BNV) | payer MEDICARE, MEDICAID, SELFPAY | PROVIDERS: PCP Internal Medicine; Visit Provider Psychiatry & Neurology Psychiatry | DX: F33.2 Major depressive disorder, recurrent severe without psychotic features (principal) | CPT/HCPCS: 90870 ==

== ENCOUNTER 2025-10-02 05:52 | Day surgery (SDC) | payer MEDICARE, MEDICAID, SELFPAY ==
--- OUTSIDE RECORDS SUMMARY | 2025-09-29 09:58 | XMS_ITS | Clinical Summary ---
Author Organization 175 [facility] Address [address] [place] [address] Phone Care Team Providers Care Ton Container Filler Name Role Phone Bashir Tadeo MD Primary Care Provider +1- [phone] Allergies Active Allergy Reactions Criticality Noted Date [...] laceration 10/04/2024 Schizoaffective disorder, bi polar type ([facility] V24, 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 V24, 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
--- OUTSIDE RECORDS SUMMARY | 2025-09-29 09:58 | XMS_ITS | Patient Health Record ---
Author Organization [facility] Address [address] [place] [address] Care Team Providers Care Public Works Inspector Name Role Phone RAMIREZSHANIA Primary Care Provider Adam Craig Unavailable [phone] Kim GAN, Jose Carlos Unavailable Unavailable Allergies [...] 112 MCG Oral; Duration: 30 Days Active [place] Carbonate 300 MG Oral; Duration: 90 Days [...] Status Risk Notes Problem Colon cancer screening (881752074) Colon cancer screening (Z12.11) Active confirmed Problem Irritable bowel syndrome with diarrhea (327189101) Irritable bowel syndrome with diarrhea (K58.0) Active confirmed Problem Internal hemorrhoid (75895846) Internal hemorrhoid (K64.8) Active confirmed Vital Signs Temperature 98.9 degrees Fahrenheit 05/19/2025 Blood pressure diastolic 01 mm Hg 05/19/2025 Height 63 in 05/19/2025 Blood pressure systolic 001 mm Hg 05/19/2025 Weight 189.6 lbs 05/19/2025 BMI 33.58 kg/m2 05/19/2025 Encounters Encounter Location Date Provider Diagnosis [facility] [address] [place] [phone] 05/19/2025 Adam Medrano Irritable bowel syndrome with [...] Provider Name:Adam Medrano , 11/21/2025 09:50:00 AM, [address] [place] [address], [address], [place], [address], Insurance Providers Payer Name Payer Address Payer Phone Subscriber Number Group Number Insured Name Patient Relationship to Insured Coverage Start Date Coverage End Date MEDICARE OF [place] [address] [place] [id number] ANAY DUFF Self - patient is the insured [address] [facility] [address] [place] [address] [phone] [id number] ANAY DUFF Self - patient is the insured Medical (General) History Medical History History ICD Code Denies [place],DM,CVA,Lung disease,renal dise ase Bipolar depression-She sees Dr. Alvarez at [facility]. She reports that she will [...] microscopic colitis Surgical History Surgery Date(Month/Year) -2018-at [facility]- trache ostomy- in hospital for 1 month-She had a hip replacement at that time. Rhinoplasty-cosmetic
[2025-10-02 06:24] VITALS: BP 133/80; PULSE 90; RESP 16; TEMP 36.5; O2SAT 96; BMI 31.7
[2025-10-02] MEDS: Lactated Ringers 1,000 ML 100 ML IVCONT (06:31)
--- NOTE | 2025-10-02 07:09 | MHC.SHP ---
Pre-Procedural Eval Section A - 24 Hr Update-Section A only Date of Service: 10/02/25 The patient is an INPATIENT: No Changes since office visit: No Cold of Flu in the past 2 weeks, No New Medical Problems, No Changes in Medication and No Patient answered all questions The patient has been examined within 24 hours of the surgical procedure. The History & Physical has been completed within 30 days and I have reviewed it.: No Section B - Complete if H&P > 30 days Chief Complaint: depression Details of Present Illness: Depressed. Here for ECT Relevant Family History (Specify if Yes): No Relevant Social History: None Present Medications: see Short Stay Collaborative assessment Medical History: No relevant PMH History of Previous Operations: No relevant previous surgery Allergies: Allergies Allergy/AdvReac Type Severity Reaction Status Date / Time Sulfa (Sulfonamide Allergy Mild UNKNOWN Verified 08/23/25 14:37 Antibiotics) Review of Systems Sugical H&P ROS: Negative: Constitution, Cardiovascular, Respiratory, Neurological, Hem-Onc, Allergic/Immunologic, Gastrointestinal, Genitourinary, Musculoskeletal, Integumentary, Endocrine and Eyes/Ears/Nose/Throat and Yes, Specify: Psychiatric (depressed) Exam Surgical H&P Exam: Normal: HEENT, Normal: Heart, Normal: Lungs, Normal: Extremities, Normal: Abdomen, Normal: Skin and Normal: Neurological Plan Diagnosis/Plan: Unchanged I have reviewed the history and physical and performed a pertinent physical examination on my patient. No changes have occurred unless specified. Time Spent With Patient Time: Total time managing care of this patient today ____ minutes.
--- NOTE | 2025-10-02 07:09 | HO.ECTPROC ---
ECT Procedure Note Diagnosis/Treatment Date of Service: 10/02/25 Diagnosis: Major Depressive Disorder Previous ECT Date: 08/04/25 Treatment: Maintenance Interval Clinical Notes: Pt reports that she usually comes for mECT q4 wks but had to cancel due to some issues that came up. She has felt more depressed with the longer interval btwn tx. She plans to return next MWF. She denies SI. Denies any issues with last tx. A/O x 3. Time: Total time managing care of this patient today ____ minutes. ECT Settings Device: THYMATRON DGx Electrode Placement: Bifrontal Program/Pulse Width: 0.25 Energy Percent: 65 Seizure Duration By EEG (in seconds): 81 By Motor Observation (in seconds): 47 Medications Administration General Anesthetic: Etomidate (18 mg) Muscle Relaxant: Succinylcholine (100 mg) Ancillary Medications Analgesics: Torodol - Pre ECT (15 mg) Anti-emetics: Zofran - Pre ECT (4 mg) Airway Management Airway Management: Bag Mask Ventilation
--- NOTE | 2025-10-02 07:10 | P.CONAN_ITS ---
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 (Acute) Tinea pedis (Acute) Left foot pain (Acute) Shortness of breath (Acute) Hyperkalemia (Acute) Diarrhea (Acute) Palpitation (Acute) Eczema (Acute) Postmenopausal bleeding (Acute) Amenorrhea (Acute) Menopause (Acute) Complex ovarian cyst (Acute) Elevated blood pressure reading without diagnosis of hypertension (Acute) Hypercholesterolemia (Acute) Hypothyroid (Acute) Schizoaffective disorder, bipolar type (Chronic) Past Medical History Medical History (Updated 09/19/25 @ 05:39 by Bashir Tadeo MD) Encounter for screening for malignant neoplasm of colon (~09/19/25) Well woman exam Pre-op examination Left foot pain Preoperative clearance Hip fracture requiring operative repair nursing home current use of 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 Father No problems noted. Family history of problems with anesthesia: No Surgical History Surgical History S/P foot surgery, left History of surgery on lower extremity History of hip replacement History of tracheostomy History of hip surgery Status post aortic coarctation stent placement H/O rhinoplasty History of Problems with Anesthesia: No Social History Social History Housing: House Are you a primary director of home care hospice to a significant other at home: No Do you presently have visiting nurse or other home services: No Alcohol intake: never Patient Tobacco Use Status: Former Tobacco user Tobacco use type: Cigarette e-Cigarette/Vaping Use: Never Used Second Hand Smoke Exposure: Yes Advance Directives: No Advance Directives Information Provided: Yes service: No Current occupational status: disabled Cognitive needs: No Hearing needs: No Vision needs: Yes (Glasses) Meds Allergies Allergy/AdvReac Type Severity Reaction Status Date / Time Sulfa (Sulfonamide Allergy Mild UNKNOWN Verified 08/23/25 14:37 Antibiotics) Home Medications ?Medication ?Instructions ?Recorded ?Confirmed ?Last Taken ?Type cholecalciferol (vitamin D3) 25 25 mcg PO DAILY 08/15/25 Unknown History mcg (1,000 unit) capsule Exam Height,Weight and Vital Signs: Height 5 ft 3 in Weight 179 lb Last Vital Signs Temp 97.7 F 10/02/25 06:24 Pulse 90 10/02/25 06:24 Resp 16 10/02/25 06:24 BP 133/80 10/02/25 06:24 Pulse Ox 96 10/02/25 06:24 O2 Del Method Room Air 10/02/25 06:24 Airway Mallampati Class: II TM Dist: >3cm Neck ROM: Full Heart: rrr Lungs: cta Assessment and Plan Assessment Anesthesia Assessment: Anesthesia Plan Discussed and Chart Reviewed Final Anesthetic Review Family History of Problems with Anesthesia: No History of Problems with Anesthesia: No NPO: Yes ASA Class: III Final Preanesthetic Review: No Changes in Pt Med Stat, Meds/Allgs Chart Reviewed and Consent Obtained/Reviewed Patient Risk: Intermediate Procedure Risk: Intermediate Anesthetic Plan Anesthetic Plan: GA Disposition: Standard PACU
[2025-10-02 07:28] VITALS: BP 118/71; PULSE 61; RESP 22; TEMP 37.2; O2SAT 98
[2025-10-02 07:33] VITALS: BP 125/68; PULSE 63; RESP 11; O2SAT 99
[2025-10-02 07:38] VITALS: BP 114/71; PULSE 64; RESP 14; O2SAT 99
[2025-10-02 07:43] VITALS: BP 116/71; PULSE 60; RESP 14; O2SAT 98
[2025-10-02 07:58] VITALS: BP 122/66; PULSE 67; RESP 16; TEMP 36.4; O2SAT 98
== END 2025-10-02 08:12 | disposition home or self-care (01) ==
PROVIDERS: PCP Internal Medicine; Visit Provider Psychiatry & Neurology Psychiatry
PROC: (CPT 90870; principal; 2025-10-02 07:30)
DX: F33.2 Major depressive disorder, recurrent severe without psychotic features (principal); E78.00 Pure hypercholesterolemia, unspecified; E03.9 Hypothyroidism, unspecified; Z79.899 Other long term (current) drug therapy; Z88.2 Allergy status to sulfonamides; Z98.890 Other specified postprocedural states; Z87.891 Personal history of nicotine dependence
CPT/HCPCS: 90870; J0330; J1885; J2405

== ENCOUNTER → 2025-10-02 05:52 | Outpatient (BNV) | payer MEDICARE, MEDICAID, SELFPAY | PROVIDERS: PCP Internal Medicine; Visit Provider Psychiatry & Neurology Psychiatry | DX: F33.2 Major depressive disorder, recurrent severe without psychotic features (principal) | CPT/HCPCS: 90870 ==

== ENCOUNTER 2025-10-04 05:46 | Day surgery (SDC) | payer MEDICARE, MEDICAID, SELFPAY ==
--- OUTSIDE RECORDS SUMMARY | 2025-09-26 08:27 | XMS_ITS | Patient Health Record ---
Author Organization [facility] Address [address] [place] [address] Care Team Providers Care Electro Mechanical Assembler Name Role Phone RAMIREZSHANIA Primary Care Provider Adam Craig Unavailable [phone] Kim GAN, Jose Carlos Unavailable Unavailable Allergies Allergen (clinical drug ingredient) Drug/Non Drug Allergy documented on EMR Reaction Allergy Type Onset Date Status Sulfa Unknown Drug Allergy Active Reason For Referral No Information Medications Medication SIG (Take, Route, Frequency, Duration) Notes Start Date End Date Status Atorvastatin Calcium 20 MG Oral; Duratio n: 90 Days Active clonazePAM 0.5 MG TAKE 1 TABLET BY YARELI TH IN THE MORNING , 1 TAB IN THE AFTERNOON, AND 2 TABS AT BEDTIME DIRECTED Oral; Duration: 30 Days Active Simvastatin 40 MG 1 tablet in the evening Orally Once a day Not-Taking fluvoxaMINE Maleate 100 MG Oral; Duratio n: 90 Days Active Levothyroxine Sodium 112 MCG Oral; Duration: 30 Days Active [place] Carbonate 300 MG Oral; Duration: 90 Days Active Donepezil HCl 10 MG Oral; Duration: 30 Days Active Vraylar 6 MG Oral; Duration: 30 Days Active OLANZapine 10 MG Oral; Duration: 30 Days Not-Taking Perphenazine 8 MG 1 tablet Orally Once a day Not-Taking Ativan 0.5 MG 1 tablet as needed Orally Once a day Not-Taking Imodium A-D 2 MG Take 1 or 2 every 4 hours for diarrhea when needed. You can also take it before any activities or treatments to prevent diarrhea. Orally Every 4 hours if needed for diarrhea; Duration: 30 days 05/19/2025 Active Diphenoxylate-Atropine 2.5-0.025 MG [...] Status Risk Notes Problem Colon cancer screening (708942937) Colon cancer screening (Z12.11) Active confirmed Problem Irritable bowel syndrome with diarrhea (916869665) Irritable bowel syndrome with diarrhea (K58.0) Active confirmed Problem Internal hemorrhoid (06422111) Internal hemorrhoid (K64.8) Active confirmed Vital Signs Temperature 98.9 degrees Fahrenheit 05/19/2025 Blood pressure diastolic 01 mm Hg 05/19/2025 Height 63 in 05/19/2025 Blood pressure systolic 001 mm Hg 05/19/2025 Weight 189.6 lbs 05/19/2025 BMI 33.58 kg/m2 05/19/2025 Encounters Encounter Location Date Provider Diagnosis [facility] [address] [place] [phone] 05/19/2025 Adam Medrano Irritable bowel syndrome with [...] Provider Name:Adam Medrano , 11/21/2025 09:50:00 AM, [address] [place] [address], [address], [place], [address], Insurance Providers Payer Name Payer Address Payer Phone Subscriber Number Group Number Insured Name Patient Relationship to Insured Coverage Start Date Coverage End Date MEDICARE OF [place] [address] [place] [address] [id number] ANAY DUFF Self - patient is the insured 3 MEDICAID OF [facility] [address] [place] [phone] [id number] ANAY DUFF Self - patient is the insured Medical (General) History Medical History History ICD Code Denies [place],DM,CVA,Lung disease,renal dise ase Bipolar depression-She sees Dr. Alvarez at [facility]. She reports that she will be starting [...] microscopic colitis Surgical History Surgery Date(Month/Year) -2018-at [facility]- trache ostomy- in hospital for 1 month-She had a hip replacement at that time. Rhinoplasty-cosmetic
--- OUTSIDE RECORDS SUMMARY | 2025-09-26 08:27 | XMS_ITS | Clinical Summary ---
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 10/04/2024 Hip fracture requiring opera tive repair ([facility] V24, [facility] V28) 10/04/2024 Immunizations Immunization Administration Dates Next [...] Documents on File Type Date Recorded Patient Certified Physical Therapist Assistant Expl anation Health Care Decision (hx) 01/16/2015 AD MONGE DIRECTIVE Health Care Decision (hx) 01/16/2015 AD MONGE DIRECTIVE Health Care Decision (hx) 01/16/2015 AD MONGE DIRECTIVE Care Teams Records Management Manager Relationship Specialty Start Date End Date Bashir Tadeo MD [facility] [address] [place] [address] [address] [place] [address] PCP - General Internal Medicine 08/30/24
[2025-10-04] VITALS (8 sets, daily range): BP systolic 97–123; BP diastolic 52–69; PULSE 53–83; RESP 14–24; TEMP 36.3–37; O2SAT 95–99; BMI 32.1
[2025-10-04] MEDS: Lactated Ringers 1,000 ML 100 ML IVCONT (06:35)
--- NOTE | 2025-10-04 06:58 | MHC.SHP ---
Pre-Procedural Eval Section A - 24 Hr Update-Section A only Date of Service: 10/04/25 The patient is an INPATIENT: No Changes since office visit: No Cold of Flu in the past 2 weeks, No New Medical Problems, No Changes in Medication and No Patient answered all questions The patient has been examined within 24 hours of the surgical procedure. The History & Physical has been completed within 30 days and I have reviewed it.: No Section B - Complete if H&P > 30 days Chief Complaint: depression Details of Present Illness: improved mood Relevant Family History (Specify if Yes): No Relevant Social History: None Present Medications: see Short Stay Collaborative assessment Medical History: No relevant PMH History of Previous Operations: No relevant previous surgery Allergies: Allergies Allergy/AdvReac Type Severity Reaction Status Date / Time Sulfa (Sulfonamide Allergy Mild UNKNOWN Verified 08/23/25 14:37 Antibiotics) Review of Systems Sugical H&P ROS: Negative: Constitution, Cardiovascular, Respiratory, Neurological, Hem-Onc, Allergic/Immunologic, Gastrointestinal, Genitourinary, Musculoskeletal, Integumentary, Endocrine and Eyes/Ears/Nose/Throat and Yes, Specify: Psychiatric (improved) Exam Surgical H&P Exam: Normal: HEENT, Normal: Heart, Normal: Lungs, Normal: Extremities, Normal: Abdomen, Normal: Skin and Normal: Neurological Plan Diagnosis/Plan: Unchanged I have reviewed the history and physical and performed a pertinent physical examination on my patient. No changes have occurred unless specified. Time Spent With Patient Time: Total time managing care of this patient today ____ minutes.
--- NOTE | 2025-10-04 06:58 | HO.ECTPROC ---
ECT Procedure Note Diagnosis/Treatment Date of Service: 10/04/25 Diagnosis: Schizoaffective Disorder Previous ECT Date: 10/02/25 Current Treatment Number: 3 Interval Clinical Notes: Patient had been feeling increasingly fragile transient thought she would be better off but no plan or intent. No clear trigger patient felt better after the 1st ECT states she is feeling much more stable. Treated bifrontally prove usual adequate seizure no side effects noted. Recent lab work completed unremarkable. Patient did well decreasing energy to 50%. Follow-up 5-7 days Time: Total time managing care of this patient today _30___ minutes. ECT Settings Device: THYMATRON DGx Electrode Placement: Bifrontal Program/Pulse Width: 0.25 Energy Percent: 50 Seizure Duration By EEG (in seconds): 46 Medications Administration General Anesthetic: Etomidate (18 mg) Muscle Relaxant: Succinylcholine (100 mg) Ancillary Medications Analgesics: Torodol - Pre ECT (15 mg) Anti-emetics: Zofran - Pre ECT (4 mg) Airway Management Airway Management: Bag Mask Ventilation
--- NOTE | 2025-10-04 07:02 | HO.ANESPROP2 ---
HPI - Anesthesia Eval Consult details Narrative: 50 yo F presenting for ECT PMFSH Active Problems Active Problems: All Active Problems (Updated 09/19/25 @ 05:39 by Bashir Tadeo MD) Polyuria (Acute) Well woman exam (Acute) Galactorrhea (Acute) Annual wellness visit (Acute) Annual physical exam (Acute) Irritable bowel syndrome with diarrhea (Acute) Incomplete bladder emptying (Acute) Hyperglycemia (Acute) Allergic rhinitis (Acute) shelter current use of clozapine (Acute) Tinea pedis (Acute) Left foot pain (Acute) Shortness of breath (Acute) Hyperkalemia (Acute) Diarrhea (Acute) Palpitation (Acute) Eczema (Acute) Postmenopausal bleeding (Acute) Amenorrhea (Acute) Menopause (Acute) Complex ovarian cyst (Acute) Elevated blood pressure reading without diagnosis of hypertension (Acute) Hypercholesterolemia (Acute) Hypothyroid (Acute) Schizoaffective disorder, bipolar type (Chronic) Past Medical History Medical History (Updated 09/19/25 @ 05:39 by Bashir Tadeo MD) Encounter for screening for malignant neoplasm of colon (~09/19/25) Well woman exam Pre-op examination Left foot pain Preoperative clearance Hip fracture requiring operative repair shelter current use of 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 Father No problems noted. Family history of problems with anesthesia: No Surgical History Surgical History S/P foot surgery, left History of surgery on lower extremity History of hip replacement History of tracheostomy History of hip surgery Status post aortic coarctation stent placement H/O rhinoplasty History of Problems with Anesthesia: No Social History Social History Housing: House Are you a primary clinical care coordinator to a significant other at home: No Do you presently have visiting nurse or other home services: No Alcohol intake: never Patient Tobacco Use Status: Former Tobacco user Tobacco use type: Cigarette e-Cigarette/Vaping Use: Never Used Second Hand Smoke Exposure: Yes Advance Directives: No Advance Directives Information Provided: Yes service: No Current occupational status: disabled Cognitive needs: No Hearing needs: No Vision needs: Yes (Glasses) Meds Allergies Allergy/AdvReac Type Severity Reaction Status Date / Time Sulfa (Sulfonamide Allergy Mild UNKNOWN Verified 08/23/25 14:37 Antibiotics) Active Medications: Current Medications Lactated Ringer's (Lr) 1,000 mls @ 100 mls/hr IVCONT .Q10H KEHINDE Last Admin: 10/04/25 06:35 Dose: 100 mls/hr Home Medications ?Medication ?Instructions ?Recorded ?Confirmed ?Last Taken ?Type cholecalciferol (vitamin D3) 25 25 mcg PO DAILY 06/23/23 08/15/25 Unknown History mcg (1,000 unit) capsule Exam Exam Date and Time: 10/04/25 0655 Height,Weight and Vital Signs: Height 5 ft 3 in Weight 82.1 kg Last Vital Signs Temp 97.3 F 10/04/25 06:38 Pulse 83 10/04/25 06:38 Resp 24 H 10/04/25 06:38 BP 118/63 10/04/25 06:38 Pulse Ox 97 10/04/25 06:38 O2 Del Method Room Air 10/04/25 06:38 Airway Mallampati Class: I TM Dist: >3cm Neck ROM: Full Loose/Missing/Broken Teeth: Yes (missing tooth left lower jaw) Heart: S1S2 Lungs: CTAB Assessment and Plan Assessment Anesthesia Assessment: Anesthesia Plan Discussed and Chart Reviewed Final Anesthetic Review Family History of Problems with Anesthesia: No History of Problems with Anesthesia: No NPO: Yes ASA Class: III Final Preanesthetic Review: No Changes in Pt Med Stat, Meds/Allgs Chart Reviewed, Consent Obtained/Reviewed and Anes Risks/Benef Reviewed Patient Risk: Low Procedure Risk: Intermediate Anesthetic Plan Anesthetic Plan: GA and Agree w/ Assess. and Plan Disposition: Standard PACU
== END 2025-10-04 08:42 | disposition home or self-care (01) ==
PROVIDERS: PCP Internal Medicine; Visit Provider Psychiatry & Neurology Psychiatry
PROC: (CPT 90870; principal; 2025-10-04 08:00)
DX: F25.0 Schizoaffective disorder, bipolar type (principal); F41.1 Generalized anxiety disorder; R45.851 Suicidal ideations; E78.00 Pure hypercholesterolemia, unspecified; E03.9 Hypothyroidism, unspecified; Z79.899 Other long term (current) drug therapy; Z88.2 Allergy status to sulfonamides; Z98.890 Other specified postprocedural states; Z87.891 Personal history of nicotine dependence
CPT/HCPCS: 90870; J0330; J1885; J2405; J2704

== ENCOUNTER → 2025-10-04 05:46 | Outpatient (BNV) | payer MEDICARE, MEDICAID, SELFPAY | PROVIDERS: PCP Internal Medicine; Visit Provider Psychiatry & Neurology Psychiatry | DX: F33.2 Major depressive disorder, recurrent severe without psychotic features (principal) | CPT/HCPCS: 90870 ==

== ENCOUNTER 2025-10-06 11:04 | Outpatient (REF) | payer MEDICARE, MEDICAID, SELFPAY ==
[2025-10-06 12:00] LABS: MANUAL DIFF FLAG NO
[2025-10-06 12:42] LABS: Hematocrit 40.1 % (37.0-47.0); Hemoglobin 13.1 g/dl (12.0-16.0); Imm Gran Abs Auto 0.04 X10*3/uL (0.00-0.03); Imm Gran Pct Auto 0.3 % (0.0-0.4); Lymphocytes Absolute Auto 1.4 X10*3/uL (1.2-4.9); Mean Corpuscular HGB Conc 32.7 g/dl (31.0-35.0); Mean Corpuscular Hemoglobin 30.9 pg (27.0-33.0); Mean Corpuscular Volume 94.6 fL (80.0-98.0); NRBC Abs Auto 0.000 X10*3/uL (0.0-0.012); NRBC Pct Auto 0.0 /100WBC (0.0-0.2); Platelet Count 222 X10*3/uL (160-400); Red Blood Count 4.24 X10*6/uL (4.20-5.50); White Blood Count 11.6 X10*3/uL (4.8-10.8)
[2025-10-06 13:53] LABS: Alanine Aminotransferase 17 U/L (0-31); Albumin Level 4.9 g/dL (3.5-5.0); Alkaline Phosphatase 82 U/L (39-117); Anion Gap 13 (12-20); Aspartate Amino Transferase 21 U/L (5-31); Blood Urea Nitrogen 19 mg/dL (9-16); Calcium 10.2 mg/dL (8.4-10.2); Carbon Dioxide 29 mmol/L (22-29); Chloride 106 mmol/L (96-108); Estimated Glomerular Filt Rate > 60; Potassium 4.9 mmol/L (3.3-5.1); Sodium 143 mmol/L (135-145); Total Protein 7.3 g/dL (6.5-8.0)
[2025-10-06 13:54] LABS: Lithium 0.75 mmol/L (0.60-1.20)
[2025-10-06 15:08] LABS: Free T4 (Free Thyroxine) 0.99 ng/dL (0.71-1.85)
== END 2025-10-06 11:05 | disposition home or self-care (01) ==
LOC: HO.LAB 11:04
PROVIDERS: PCP Internal Medicine; Visit Provider Psychiatry & Neurology Psychiatry
DX: F25.0 Schizoaffective disorder, bipolar type (principal); R73.9 Hyperglycemia, unspecified; E03.9 Hypothyroidism, unspecified; Z79.899 Other long term (current) drug therapy
CPT/HCPCS: 36415; 80053; 80178; 83036; 84439; 84443; 85025; 99212

== ENCOUNTER 2025-10-06 11:04 | Outpatient (AMB) | payer MEDICARE, MEDICAID, SELFPAY ==
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
== END 2025-10-06 11:43 | disposition home or self-care (01) ==
LOC: HO.HOP 11:04
PROVIDERS: PCP Internal Medicine; Visit Provider Psychiatry & Neurology Psychiatry
DX: F25.0 Schizoaffective disorder, bipolar type (principal); R73.9 Hyperglycemia, unspecified
CPT/HCPCS: 99214

== ENCOUNTER 2025-10-09 05:53 | Day surgery (SDC) | payer MEDICARE, MEDICAID, SELFPAY ==
[2025-10-09] VITALS (7 sets, daily range): BP systolic 105–141; BP diastolic 50–76; PULSE 51–89; RESP 12–18; TEMP 36.6–37.6; O2SAT 96–100; BMI 31.7
--- NOTE | 2025-10-09 07:08 | MHC.SHP ---
Pre-Procedural Eval Section A - 24 Hr Update-Section A only Date of Service: 10/09/25 The patient is an INPATIENT: No Changes since office visit: No Cold of Flu in the past 2 weeks, No New Medical Problems, No Changes in Medication and No Patient answered all questions The patient has been examined within 24 hours of the surgical procedure. The History & Physical has been completed within 30 days and I have reviewed it.: No Section B - Complete if H&P > 30 days Chief Complaint: depression Details of Present Illness: improved mood some pi Relevant Family History (Specify if Yes): No Relevant Social History: None Present Medications: see Short Stay Collaborative assessment Medical History: No relevant PMH History of Previous Operations: No relevant previous surgery Allergies: Allergies Allergy/AdvReac Type Severity Reaction Status Date / Time Sulfa (Sulfonamide Allergy Mild UNKNOWN Verified 08/23/25 14:37 Antibiotics) Review of Systems Sugical H&P ROS: Negative: Constitution, Cardiovascular, Respiratory, Neurological, Hem-Onc, Allergic/Immunologic, Gastrointestinal, Genitourinary, Musculoskeletal, Integumentary, Endocrine and Eyes/Ears/Nose/Throat and Yes, Specify: Psychiatric (improved) Exam Surgical H&P Exam: Normal: HEENT, Normal: Heart, Normal: Lungs, Normal: Extremities, Normal: Abdomen, Normal: Skin and Normal: Neurological Plan Diagnosis/Plan: Unchanged I have reviewed the history and physical and performed a pertinent physical examination on my patient. No changes have occurred unless specified. Time Spent With Patient Time: Total time managing care of this patient today ____ minutes.
--- NOTE | 2025-10-09 07:08 | HO.ECTPROC ---
ECT Procedure Note Diagnosis/Treatment Date of Service: 10/09/25 Diagnosis: Schizoaffective Disorder Previous ECT Date: 10/02/25 Current Treatment Number: 4 Treatment: Other (continuation) Interval Clinical Notes: Pt with some residual sx improved no si no change in cognition improved Time: Total time managing care of this patient today ____ minutes. ECT Settings Device: THYMATRON DGx Electrode Placement: Bifrontal Program/Pulse Width: 0.50 Energy Percent: 55 Seizure Duration By EEG (in seconds): 41 Medications Administration General Anesthetic: Etomidate (18 mg) Muscle Relaxant: Succinylcholine (100 mg) Ancillary Medications Analgesics: Torodol - Pre ECT (15 mg) Anti-emetics: Zofran - Pre ECT (4 mg) Airway Management Airway Management: Bag Mask Ventilation Treatment Recommendations No Changes Recommended: No change Pt Tolerated Procedure w/o Issue: Yes
[2025-10-09] MEDS: Lactated Ringers 1,000 ML 100 ML IVCONT (07:23)
--- NOTE | 2025-10-09 08:10 | P.CONAN_ITS ---
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) Tinea pedis (Acute) Left foot pain (Acute) Shortness of breath (Acute) Hyperkalemia (Acute) Diarrhea (Acute) Palpitation (Acute) Eczema (Acute) Postmenopausal bleeding (Acute) Amenorrhea (Acute) Menopause (Acute) Complex ovarian cyst (Acute) Elevated blood pressure reading without diagnosis of hypertension (Acute) Hypercholesterolemia (Acute) Hypothyroid (Acute) Schizoaffective disorder, bipolar type (Chronic) Past Medical History Medical History Encounter for screening for malignant neoplasm of colon (~09/19/25) Well woman exam Pre-op examination Left foot pain Preoperative clearance 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 Father No problems noted. Family history of problems with anesthesia: No Surgical History Surgical History S/P foot surgery, left History of surgery on lower extremity History of hip replacement History of tracheostomy History of hip surgery Status post aortic coarctation stent placement H/O rhinoplasty History of Problems with Anesthesia: No Social History Social History Housing: House Are you a primary manager of care to a significant other at home: No Do you presently have visiting nurse or other home services: No Alcohol intake: never Patient Tobacco Use Status: Former Tobacco user Tobacco use type: Cigarette e-Cigarette/Vaping Use: Never Used Second Hand Smoke Exposure: Yes Advance Directives: No Advance Directives Information Provided: Yes service: No Current occupational status: disabled Cognitive needs: No Hearing needs: No Vision needs: Yes (Glasses) Meds Allergies Allergy/AdvReac Type Severity Reaction Status Date / Time Sulfa (Sulfonamide Allergy Mild UNKNOWN Verified 08/23/25 14:37 Antibiotics) Active Medications: Current Medications Lactated Ringer's (Lr) 1,000 mls @ 100 mls/hr IVCONT .Q10H KEHINDE Stop: 10/09/25 17:20 Last Admin: 10/09/25 07:23 Dose: 100 mls/hr Home Medications ?Medication ?Instructions ?Recorded ?Confirmed ?Last Taken ?Type cholecalciferol (vitamin D3) 25 25 mcg PO DAILY 08/15/25 Unknown History mcg (1,000 unit) capsule Exam Height,Weight and Vital Signs: Height 5 ft 3 in Weight 81.193 kg Last Vital Signs Temp 99.7 F 10/09/25 08:00 Pulse 72 10/09/25 08:00 Resp 12 10/09/25 08:00 BP 119/56 L 10/09/25 08:00 Pulse Ox 100 10/09/25 08:00 O2 Del Method Nasal Cannula with Capnography 10/09/25 08:00 O2 Flow Rate 2 10/09/25 08:00 Airway Mallampati Class: II TM Dist: >3cm Neck ROM: Full Loose/Missing/Broken Teeth: No Heart: RRR Lungs: CTA Assessment and Plan Assessment Anesthesia Assessment: Anesthesia Plan Discussed and Chart Reviewed Final Anesthetic Review Family History of Problems with Anesthesia: No History of Problems with Anesthesia: No NPO: Yes ASA Class: III Final Preanesthetic Review: Meds/Allgs Chart Reviewed, Consent Obtained/Reviewed and Anes Risks/Benef Reviewed Patient Risk: Intermediate Procedure Risk: Intermediate Anesthetic Plan Anesthetic Plan: GA Disposition: Standard PACU
== END 2025-10-09 08:38 | disposition home or self-care (01) ==
PROVIDERS: PCP Internal Medicine; Visit Provider Psychiatry & Neurology Psychiatry
PROC: (CPT 90870; principal; 2025-10-09 07:00)
DX: F25.0 Schizoaffective disorder, bipolar type (principal); F41.9 Anxiety disorder, unspecified; E78.00 Pure hypercholesterolemia, unspecified; E03.9 Hypothyroidism, unspecified; Z79.899 Other long term (current) drug therapy; Z88.2 Allergy status to sulfonamides; Z98.890 Other specified postprocedural states; Z87.891 Personal history of nicotine dependence
CPT/HCPCS: 90870; J0330; J1885; J2405; J2704

== ENCOUNTER → 2025-10-09 05:53 | Outpatient (BNV) | payer MEDICARE, MEDICAID, SELFPAY | PROVIDERS: PCP Internal Medicine; Visit Provider Psychiatry & Neurology Psychiatry | DX: F33.2 Major depressive disorder, recurrent severe without psychotic features (principal) | CPT/HCPCS: 90870 ==

== ENCOUNTER 2025-10-11 05:51 | Day surgery (SDC) | payer MEDICARE, MEDICAID, SELFPAY ==
--- OUTSIDE RECORDS SUMMARY | 2025-10-04 10:03 | XMS_ITS | Clinical Summary ---
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 10/04/2024 Hip fracture requiring opera tive repair ([facility] V24, [facility] V28) 10/04/2024 Immunizations Immunization Administration [...] Screening 10/26/2022 Depression Screening 11/23/2024 COVID-19 Vaccine ( season) 2025 07/19/2024, 08/30/2023, 09/15/2022, Additional history [...] Documents on File Type Date Recorded 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
--- OUTSIDE RECORDS SUMMARY | 2025-10-04 10:03 | XMS_ITS | Patient Health Record ---
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 Winder Repair Name Role Phone RAMIREZSHANIA Primary Care Provider Adam Craig Unavailable [phone] Kim GAN, Jose Carlos Unavailable Unavailable Allergies [...] 112 MCG Oral; Duration: 30 Days Active [place] Carbonate 300 MG Oral; Duration: 90 Days [...] Status Risk Notes Problem Colon cancer screening (228315270) Colon cancer screening (Z12.11) Active confirmed Problem Irritable bowel syndrome with diarrhea (747645482) Irritable bowel syndrome with diarrhea (K58.0) Active confirmed Problem Internal hemorrhoid (74162476) Internal hemorrhoid (K64.8) Active confirmed Vital Signs Temperature 98.9 degrees Fahrenheit 05/19/2025 Blood pressure diastolic 01 mm Hg 05/19/2025 Height 63 in 05/19/2025 Blood pressure systolic 001 mm Hg 05/19/2025 Weight 189.6 lbs 05/19/2025 BMI 33.58 kg/m2 05/19/2025 Encounters Encounter Location Date Provider Diagnosis [facility] [address] [place] [phone] 05/19/2025 Adam Medrano Irritable bowel syndrome with [...] Name:Adam Medrano , 11/21/2025 09:50:00 AM, [address] [place] [address], [address], [place], [address], Insurance Providers Payer Name Payer Address Payer Phone Subscriber Number Group Number Insured Name Patient Relationship to Insured Coverage Start Date Coverage End Date MEDICARE OF [place] [address] [place] [id number] ANAY DUFF Self - patient is the insured 3 MEDICAID OF [facility] [address] [place] [address] [phone] [id number] ANAY DUFF Self - patient is the insured Medical (General) History Medical History History ICD Code Denies VT,DM,CVA,Lung disease,renal dise ase Bipolar depression-She sees Dr. Alvarez at [facility]. She reports that she will be starting [...] microscopic colitis Surgical History Surgery Date(Month/Year) -2018-at [facility]- trache ostomy- in hospital for 1 month-She had a hip replacement at that time. Rhinoplasty-cosmetic
[2025-10-11] VITALS (7 sets, daily range): BP systolic 104–134; BP diastolic 57–70; PULSE 64–98; RESP 16–22; TEMP 36.6–36.8; O2SAT 97–99; BMI 32.1
--- NOTE | 2025-10-11 06:42 | P.CONAN_ITS ---
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 (Acute) Tinea pedis (Acute) Left foot pain (Acute) Shortness of breath (Acute) Hyperkalemia (Acute) Diarrhea (Acute) Palpitation (Acute) Eczema (Acute) Postmenopausal bleeding (Acute) Amenorrhea (Acute) Menopause (Acute) Complex ovarian cyst (Acute) Elevated blood pressure reading without diagnosis of hypertension (Acute) Hypercholesterolemia (Acute) Hypothyroid (Acute) Schizoaffective disorder, bipolar type (Chronic) Past Medical History Medical History Encounter for screening for malignant neoplasm of colon (~09/19/25) Well woman exam Pre-op examination Left foot pain Preoperative clearance 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 Father No problems noted. Family history of problems with anesthesia: No Surgical History Surgical History S/P foot surgery, left History of surgery on lower extremity History of hip replacement History of tracheostomy History of hip surgery Status post aortic coarctation stent placement H/O rhinoplasty History of Problems with Anesthesia: No Social History Social History Housing: House Are you a primary child caregiver to a significant other at home: No Do you presently have visiting nurse or other home services: No Alcohol intake: never Patient Tobacco Use Status: Former Tobacco user Tobacco use type: Cigarette e-Cigarette/Vaping Use: Never Used Second Hand Smoke Exposure: Yes Advance Directives: No Advance Directives Information Provided: Yes service: No Current occupational status: disabled Cognitive needs: No Hearing needs: No Vision needs: Yes (Glasses) Meds Allergies Allergy/AdvReac Type Severity Reaction Status Date / Time Sulfa (Sulfonamide Allergy Mild UNKNOWN Verified 08/23/25 14:37 Antibiotics) Home Medications ?Medication ?Instructions ?Recorded ?Confirmed ?Last Taken ?Type cholecalciferol (vitamin D3) 25 25 mcg PO DAILY 08/15/25 Unknown History mcg (1,000 unit) capsule Exam Height,Weight and Vital Signs: Height 5 ft 3 in Weight 82.1 kg Last Vital Signs Temp 98.2 F 10/11/25 06:18 Pulse 80 10/11/25 06:18 Resp 16 10/11/25 06:18 BP 134/70 10/11/25 06:18 Pulse Ox 97 10/11/25 06:18 O2 Del Method Room Air 10/11/25 06:18 Airway Mallampati Class: II TM Dist: >3cm Neck ROM: Full Heart: rrr Lungs: cta Assessment and Plan Assessment Anesthesia Assessment: Anesthesia Plan Discussed and Chart Reviewed Final Anesthetic Review Family History of Problems with Anesthesia: No History of Problems with Anesthesia: No NPO: Yes ASA Class: III Final Preanesthetic Review: No Changes in Pt Med Stat, Meds/Allgs Chart Reviewed and Consent Obtained/Reviewed Patient Risk: Intermediate Procedure Risk: Intermediate Anesthetic Plan Anesthetic Plan: GA Disposition: Standard PACU
--- NOTE | 2025-10-11 07:05 | MHC.SHP ---
Pre-Procedural Eval Section A - 24 Hr Update-Section A only Date of Service: 10/11/25 The patient is an INPATIENT: No Changes since office visit: No Cold of Flu in the past 2 weeks, No New Medical Problems, No Changes in Medication and No Patient answered all questions The patient has been examined within 24 hours of the surgical procedure. The History & Physical has been completed within 30 days and I have reviewed it.: No Section B - Complete if H&P > 30 days Chief Complaint: depression Details of Present Illness: feeling better less depression dec pi Relevant Family History (Specify if Yes): No Relevant Social History: None Present Medications: see Short Stay Collaborative assessment Medical History: No relevant PMH History of Previous Operations: No relevant previous surgery Allergies: Allergies Allergy/AdvReac Type Severity Reaction Status Date / Time Sulfa (Sulfonamide Allergy Mild UNKNOWN Verified 08/23/25 14:37 Antibiotics) Review of Systems Sugical H&P ROS: Negative: Constitution, Cardiovascular, Respiratory, Neurological, Hem-Onc, Allergic/Immunologic, Gastrointestinal, Genitourinary, Musculoskeletal, Integumentary, Endocrine and Eyes/Ears/Nose/Throat and Yes, Specify: Psychiatric (improved) Exam Surgical H&P Exam: Normal: HEENT, Normal: Heart, Normal: Lungs, Normal: Extremities, Normal: Abdomen, Normal: Skin and Normal: Neurological Plan Diagnosis/Plan: Unchanged I have reviewed the history and physical and performed a pertinent physical examination on my patient. No changes have occurred unless specified. Time Spent With Patient Time: Total time managing care of this patient today ____ minutes.
--- NOTE | 2025-10-11 07:06 | HO.ECTPROC ---
ECT Procedure Note Diagnosis/Treatment Date of Service: 10/11/25 Diagnosis: Schizoaffective Disorder Previous ECT Date: 10/09/25 Current Treatment Number: 5 Treatment: Other (continuation) Interval Clinical Notes: Pt with some residual sx improved no si no change in cognition improved to some degree still with dep PI consider rt lf Time: Total time managing care of this patient today ____ minutes. ECT Settings Device: THYMATRON DGx Electrode Placement: Bifrontal Program/Pulse Width: 0.50 Energy Percent: 75 Seizure Duration By EEG (in seconds): 32 Medications Administration General Anesthetic: Etomidate (18 mg) Muscle Relaxant: Succinylcholine (100 mg) Ancillary Medications Analgesics: Torodol - Pre ECT (15 mg) Anti-emetics: Zofran - Pre ECT (4 mg) Airway Management Airway Management: Bag Mask Ventilation Treatment Recommendations No Changes Recommended: No change Pt Tolerated Procedure w/o Issue: Yes
== END 2025-10-11 08:26 | disposition home or self-care (01) ==
PROVIDERS: PCP Internal Medicine; Visit Provider Psychiatry & Neurology Psychiatry
PROC: (CPT 90870; principal; 2025-10-11 08:00)
DX: F25.0 Schizoaffective disorder, bipolar type (principal); F33.2 Major depressive disorder, recurrent severe without psychotic features; E78.00 Pure hypercholesterolemia, unspecified; E03.9 Hypothyroidism, unspecified; Z79.899 Other long term (current) drug therapy; Z88.2 Allergy status to sulfonamides; Z96.649 Presence of unspecified artificial hip joint; Z98.890 Other specified postprocedural states; Z87.891 Personal history of nicotine dependence
CPT/HCPCS: 90870; J0330; J1885; J2405

== ENCOUNTER → 2025-10-11 05:51 | Outpatient (BNV) | payer MEDICARE, MEDICAID, SELFPAY | PROVIDERS: PCP Internal Medicine; Visit Provider Psychiatry & Neurology Psychiatry | DX: F33.2 Major depressive disorder, recurrent severe without psychotic features (principal) | CPT/HCPCS: 90870 ==

== ENCOUNTER 2025-10-13 07:42 | Day surgery (SDC) | payer MEDICARE, MEDICAID, SELFPAY ==
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
--- NOTE | 2025-10-13 08:07 | HO.ANESPROP2 ---
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 (Acute) Tinea pedis (Acute) Left foot pain (Acute) Shortness of breath (Acute) Hyperkalemia (Acute) Diarrhea (Acute) Palpitation (Acute) Eczema (Acute) Postmenopausal bleeding (Acute) Amenorrhea (Acute) Menopause (Acute) Complex ovarian cyst (Acute) Elevated blood pressure reading without diagnosis of hypertension (Acute) Hypercholesterolemia (Acute) Hypothyroid (Acute) Schizoaffective disorder, bipolar type (Chronic) Past Medical History Medical History Encounter for screening for malignant neoplasm of colon (~09/19/25) Well woman exam Pre-op examination Left foot pain Preoperative clearance Hip fracture requiring operative repair 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 Father No problems noted. Family history of problems with anesthesia: No Surgical History Surgical History S/P foot surgery, left History of surgery on lower extremity History of hip replacement History of tracheostomy History of hip surgery Status post aortic coarctation stent placement H/O rhinoplasty History of Problems with Anesthesia: No Social History Social History Housing: House Are you a primary critical care technician to a significant other at home: No Do you presently have visiting nurse or other home services: No Alcohol intake: never Patient Tobacco Use Status: Former Tobacco user Tobacco use type: Cigarette e-Cigarette/Vaping Use: Never Used Second Hand Smoke Exposure: Yes Advance Directives: No Advance Directives Information Provided: Yes service: No Current occupational status: disabled Cognitive needs: No Hearing needs: No Vision needs: Yes (Glasses) Meds Allergies Allergy/AdvReac Type Severity Reaction Status Date / Time adhesive Allergy Intermediate Rash Verified 10/13/25 08:07 Sulfa (Sulfonamide Allergy Mild UNKNOWN Verified 08/23/25 14:37 Antibiotics) Home Medications ?Medication ?Instructions ?Recorded ?Confirmed ?Last Taken ?Type cholecalciferol (vitamin D3) 25 25 mcg PO DAILY 06/23/23 08/15/25 Unknown History mcg (1,000 unit) capsule Exam Airway Mallampati Class: II TM Dist: >3cm Neck ROM: Full Heart: rrr Lungs: cta Assessment and Plan Assessment Anesthesia Assessment: Anesthesia Plan Discussed and Chart Reviewed Final Anesthetic Review Family History of Problems with Anesthesia: No History of Problems with Anesthesia: No NPO: Yes ASA Class: III Final Preanesthetic Review: No Changes in Pt Med Stat, Meds/Allgs Chart Reviewed and Consent Obtained/Reviewed Patient Risk: Intermediate Procedure Risk: Intermediate Anesthetic Plan Anesthetic Plan: GA Disposition: Standard PACU
[2025-10-13 08:08] VITALS: BP 125/74; PULSE 89; RESP 15; TEMP 36.9; O2SAT 95; BMI 31.7
--- NOTE | 2025-10-13 08:21 | MHC.SHP ---
Pre-Procedural Eval Section A - 24 Hr Update-Section A only Date of Service: 10/13/25 Changes since office visit: No Cold of Flu in the past 2 weeks, No New Medical Problems, No Changes in Medication and No Patient answered all questions The patient has been examined within 24 hours of the surgical procedure. The History & Physical has been completed within 30 days and I have reviewed it.: Yes Section B - Complete if H&P > 30 days Chief Complaint: depression Allergies: Allergies Allergy/AdvReac Type Severity Reaction Status Date / Time adhesive Allergy Intermediate Rash Verified 10/13/25 08:07 Sulfa (Sulfonamide Allergy Mild UNKNOWN Verified 08/23/25 14:37 Antibiotics) Plan Diagnosis/Plan: Unchanged I have reviewed the history and physical and performed a pertinent physical examination on my patient. No changes have occurred unless specified. Time Spent With Patient Time: Total time managing care of this patient today ____ minutes.
--- NOTE | 2025-10-13 08:25 | HO.ECTPROC ---
ECT Procedure Note Diagnosis/Treatment Date of Service: 10/13/25 Diagnosis: Major Depressive Disorder Previous ECT Date: 10/11/25 Current Treatment Number: 5 Treatment: Series Interval Clinical Notes: Pt reports that her mood had improved after tx on 09/29 then her depressive sx returned. She denies SI. She endorses mild short-term memory impairment, denies any other issues with last tx. A/O x 3. Looking forward to spending Thanksgiving at her sister's house. Time: Total time managing care of this patient today ____ minutes. ECT Settings Device: THYMATRON DGx Electrode Placement: Bifrontal Program/Pulse Width: 0.25 Energy Percent: 55 Seizure Duration By EEG (in seconds): 28 By Motor Observation (in seconds): 27 Medications Administration General Anesthetic: Etomidate (18 mg) Muscle Relaxant: Succinylcholine (100 mg) Ancillary Medications Analgesics: Torodol - Pre ECT (15) Anti-emetics: Zofran - Pre ECT (4) Airway Management Airway Management: Bag Mask Ventilation Treatment Recommendations No Changes Recommended: No change Pt Tolerated Procedure w/o Issue: Yes
--- NOTE | 2025-10-13 08:35 | PC.NURSE ---
Pt found to have red rash on skin from cardiac leads used two days prior. Hypoallergenic leads used today and patient's allergy information updated in computer.
[2025-10-13 08:43] VITALS: BP 140/69; PULSE 84; RESP 16; TEMP 37.2; O2SAT 96
[2025-10-13 08:48] VITALS: BP 128/70; PULSE 69; RESP 12; O2SAT 100
[2025-10-13 08:53] VITALS: BP 129/73; PULSE 72; RESP 14; O2SAT 98
[2025-10-13 08:55] VITALS: BP 128/76; PULSE 72; RESP 14; O2SAT 98
[2025-10-13 09:10] VITALS: BP 131/68; PULSE 71; RESP 16; TEMP 36.9; O2SAT 97
== END 2025-10-13 09:37 | disposition home or self-care (01) ==
PROVIDERS: PCP Internal Medicine; Visit Provider Psychiatry & Neurology Psychiatry
PROC: (CPT 90870; principal; 2025-10-13 09:00)
DX: F33.2 Major depressive disorder, recurrent severe without psychotic features (principal); R41.3 Other amnesia; E78.00 Pure hypercholesterolemia, unspecified; E03.9 Hypothyroidism, unspecified; K76.9 Liver disease, unspecified; Z79.899 Other long term (current) drug therapy; Z88.2 Allergy status to sulfonamides; Z96.649 Presence of unspecified artificial hip joint; Z98.890 Other specified postprocedural states; Z87.891 Personal history of nicotine dependence
CPT/HCPCS: 90870; J0330; J1885; J2405

== ENCOUNTER → 2025-10-13 07:42 | Outpatient (BNV) | payer MEDICARE, MEDICAID, SELFPAY | PROVIDERS: PCP Internal Medicine; Visit Provider Psychiatry & Neurology Psychiatry | DX: F33.2 Major depressive disorder, recurrent severe without psychotic features (principal) | CPT/HCPCS: 90870 ==

== ENCOUNTER 2025-10-25 05:53 | Day surgery (SDC) | payer MEDICARE, MEDICAID, SELFPAY ==
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
[2025-10-25] VITALS (8 sets, daily range): BP systolic 104–137; BP diastolic 53–73; PULSE 61–86; RESP 10–16; TEMP 36.6–36.8; O2SAT 98–99; BMI 31.9
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
--- NOTE | 2025-10-25 07:07 | MHC.SHP ---
Pre-Procedural Eval Section A - 24 Hr Update-Section A only Date of Service: 10/25/25 The patient is an INPATIENT: No Changes since office visit: No Cold of Flu in the past 2 weeks, No New Medical Problems, No Changes in Medication and No Patient answered all questions The patient has been examined within 24 hours of the surgical procedure. The History & Physical has been completed within 30 days and I have reviewed it.: No Section B - Complete if H&P > 30 days Chief Complaint: depression Details of Present Illness: feeling better less depression dec pi feels ect helpful tx resistant PI Relevant Family History (Specify if Yes): No Relevant Social History: None Present Medications: see Short Stay Collaborative assessment Medical History: No relevant PMH History of Previous Operations: No relevant previous surgery Allergies: Allergies Allergy/AdvReac Type Severity Reaction Status Date / Time adhesive Allergy Intermediate Rash Verified 10/13/25 08:07 Sulfa (Sulfonamide Allergy Mild UNKNOWN Verified 08/23/25 14:37 Antibiotics) Review of Systems Sugical H&P ROS: Negative: Constitution, Cardiovascular, Respiratory, Neurological, Hem-Onc, Allergic/Immunologic, Gastrointestinal, Genitourinary, Musculoskeletal, Integumentary, Endocrine and Eyes/Ears/Nose/Throat and Yes, Specify: Psychiatric (improved) Exam Surgical H&P Exam: Normal: HEENT, Normal: Heart, Normal: Lungs and Normal: Neurological Plan Diagnosis/Plan: Unchanged I have reviewed the history and physical and performed a pertinent physical examination on my patient. No changes have occurred unless specified. Time Spent With Patient Time: Total time managing care of this patient today ____ minutes.
--- NOTE | 2025-10-25 07:25 | HO.ECTPROC ---
ECT Procedure Note Diagnosis/Treatment Date of Service: 10/25/25 Diagnosis: Schizoaffective Disorder Treatment: Maintenance Interval Clinical Notes: Patient with some improvement in mood and with paranoid concerns no significant complaints tolerating ECT Time: Total time managing care of this patient today 30___ minutes. ECT Settings Device: THYMATRON DGx Electrode Placement: Bifrontal Program/Pulse Width: 0.25 Energy Percent: 75 Seizure Duration By EEG (in seconds): 54 Medications Administration General Anesthetic: Etomidate (18 can dec 16 ) Muscle Relaxant: Succinylcholine (100) Airway Management Airway Management: Bag Mask Ventilation Treatment Recommendations Notes: can dec 16 mg
== END 2025-10-25 08:29 | disposition home or self-care (01) ==
PROVIDERS: PCP Internal Medicine; Visit Provider Psychiatry & Neurology Psychiatry
PROC: (CPT 90870; principal; 2025-10-25 08:00)
DX: F25.0 Schizoaffective disorder, bipolar type (principal); E78.00 Pure hypercholesterolemia, unspecified; E03.9 Hypothyroidism, unspecified; K76.9 Liver disease, unspecified; Z96.649 Presence of unspecified artificial hip joint; Z79.899 Other long term (current) drug therapy; Z98.890 Other specified postprocedural states; Z88.2 Allergy status to sulfonamides; L23.1 Allergic contact dermatitis due to adhesives; Z87.891 Personal history of nicotine dependence
CPT/HCPCS: 90870; J0330; J1885; J2405

== ENCOUNTER → 2025-10-25 05:53 | Outpatient (BNV) | payer MEDICARE, MEDICAID, SELFPAY | PROVIDERS: PCP Internal Medicine; Visit Provider Psychiatry & Neurology Psychiatry | DX: F33.2 Major depressive disorder, recurrent severe without psychotic features (principal) | CPT/HCPCS: 90870 ==

== ENCOUNTER 2025-11-06 11:38 | Outpatient (AMB) | payer MEDICARE, MEDICAID, SELFPAY ==
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
== END 2025-11-06 13:15 | disposition home or self-care (01) ==
LOC: HO.HOP 11:38
PROVIDERS: PCP Internal Medicine; Visit Provider Psychiatry & Neurology Psychiatry
DX: F25.0 Schizoaffective disorder, bipolar type (principal)
CPT/HCPCS: 99214

== ENCOUNTER → 2025-11-06 11:38 | Outpatient (BNVA) | payer MEDICARE, MEDICAID, SELFPAY | PROVIDERS: PCP Internal Medicine; Visit Provider Psychiatry & Neurology Psychiatry | DX: F25.0 Schizoaffective disorder, bipolar type (principal) | CPT/HCPCS: 99212 ==